=== PATIENT | male | born 1975 | race African-American/Black ===

== ENCOUNTER 2017-08-30 04:05 | Emergency (ER) | payer MEDICAID, SELFPAY ==
[2017-08-30 04:06] VITALS: BP 133/103; PULSE 80; RESP 15; TEMP 36.5; O2SAT 97; BMI 26.1
--- NOTE | 2017-08-30 04:09 | EKG12_ITS ---
Test Reason : Blood Pressure : / mmHG Vent. Rate : 079 BPM Atrial Rate : 079 BPM P-R Int : 158 ms QRS Dur : 102 ms QT Int : 406 ms P-R-T Axes : 070 -58 084 degrees QTc Int : 465 ms Sinus rhythm with frequent Premature ventricular complexes Left anterior fascicular block Anteroseptal infarct , age undetermined Abnormal ECG Confirmed by CHAR MCKEON, HAIM ([id number]), editor newspaper EDELMIRA RIVAS ([id number]) on 09/01/2017 3:33:29 PM Referred By: WAYNE Confirmed By:HAIM PARDO MD
[2017-08-30 04:34] LABS: Absolute Lymphocyte Count 2.68 X10^3/ul (0.83-4.51); Absolute Neutrophil Count 6.2 X10^3/uL (2.0-7.7); Basophil# 0.02 X10^3/uL; Basophil% 0.2 % (0-1); Hematocrit 42.6 % (40-54); Hemoglobin 15.1 g/dl (13.0-16.5); Lymphocyte # 2.68 X10^3/ul (4.0); Lymphocyte % 27.3 % (19-41); Mean Corp Hgb Conc 35.4 g/gl (32-36); Mean Corpuscular Hgb 32.3 pg (27.0-32.0); Mean Platelet Vol. 9.9 fl (6.2-12.0); Monocyte# 0.73 X10^3/uL; Monocyte% 7.4 % (0-10); Neutrophil # 6.17 X10^3/uL (2.7-7.7); Platelet Count 179 K/mm3 (150-450); RBC Distribution Width CV 12.3 % (11.6-14.6); RBC Distribution Width SD 40.4 fl (35.1-43.9); Red Blood Count 4.68 M/mm3 (4.6-6.2); White Blood Count 9.8 K/mm3 (4.4-11.0)
[2017-08-30 04:42] LABS: POSITIVE COUNT NO; POSITIVE DIFFERENTIAL NO; POSITIVE MORPHOLOGY NO
[2017-08-30 05:00] LABS: ALB/GLOB Ratio 1.1 RATIO (0.9-2.4); AST(SGOT) 30 U/L (15-37); Alanine Aminotransfer ALT/SGPT 30 U/L (16-61); Albumin, Serum 3.7 g/dL (3.2-5.0); Alkaline Phosphatase 67 U/L (45-117); Anion Gap 6 (5-15); BUN 12 mg/dL (7-18); BUN/Creat Ratio 13.6 RATIO (10-20); Calcium,Total 8.6 mg/dL (8.5-10.1); Chloride 108 mmol/L (98-107); Creatinine, Serum 0.88 mg/dL (0.70-1.30); EST Glomerular Filtration Rate 101 mL/min (>60); Est Glom Filt Rate - Afr Amer 123 mL/min (>60); Globulin 3.3 g/dL (2.2-4.2); Glucose 86 mg/dL (74-106); Potassium 3.6 mmol/L (3.5-5.1); Sodium Level 140 mmol/L (136-145)
--- NOTE | 2017-08-30 05:05 | ED.VISSUMM ---
- ER Visit Summary Date of Service: 08/30/17 Chief Complaint: I want to get the drugs out of me History of Present Illness: The patient is a 41 M presenting for evaluation secondary to drug use. Patient apparently got into a verbal dispute with his girlfriend this evening. Girlfriend states that the patient took a handful of pills in an attempt to hurt himself. Patient however states that he took the handful of pills placed them in his mouth, and immediately spit them out. States that he did not swallow them. He denies being suicidal or homicidal or hallucinating. Patient simply states that he would like to get the drugs out of his system. He states that he has been using cocaine and marijuana today. He denies that he is having any sort of chest pain. Patient does have an underlying history of coronary artery disease, stenting ?5, congestive heart failure due to ischemic cardiomyopathy and ICD placement in June. Physical Examination: Vital signs are within normal limits, patient is afebrile. General: Patient is well-nourished well-developed and in no acute distress. Head: Normocephalic, atraumatic Eyes: Pupils equal round and reactive bilaterally, extra occular motion intact bialterally ENT: Moist mucous membranes Neck: Supple, no lymphadenopathy, no JVD, no meningismus CVS: Heart regular rate and rhythm, no murmurs, rubs or gallops, radial pulses 2+ bilaterally Resp: Respirations nondistressed, lung sounds clear bilaterally, ICD is palpable in the patient's left chest Abdomen: Soft, nontender, nondistended, no palpable masses, normal bowel sounds Back: Nontender Extremities: Nontender, atraumatic, active full range of motion, no peripheral edema Skin: warm, no rashes, no petechia Neuro: Alert and oriented x 4, CN 2-12 intact, no lateralizing neurological defecits Psyc: Normal affect, no suicidal or homicidal ideation, no hallucinations, good insight and good judgment Test Results: EKG demonstrates a sinus rhythm with PVCs with a ventricular rate of 79. There is left anterior fascicular block that appears to be old, no evidence of acute ST segment changes or T-wave changes, old anteroseptal Q waves are noted unchanged from prior EKG. CBC, CMP, troponin negative. Ethanol negative. Toxicology screen was positive for cocaine and marijuana. Emergency Department Course and Treatment: Patient presented secondary to drug use. Patient was worked up given his history of ischemic cardiomyopathy. He has no evidence of elevated troponin or ischemic changes on EKG. He did have evidence of drugs in his system. He was sleeping on repeat evaluation at 550. I believe he safely can be discharged. At this time he exhibits no concern for self-harm. Patient will follow-up as needed. Disposition: Discharge Impression: 1. Polysubstance abuse This note was generated with [employer] dictation software. It may contain incorrect words, spelling, and punctuation that were not noted in review of the chart prior to signing ED Disposition - Plan for ED Patient: Disposition: Home or Assisted Living Chief Complaint: Overdose Diagnosis: Polysubstance abuse Instructions: ED Drug Abuse General Referrals: Jesus Child [Primary Care Provider] - As Needed
[2017-08-30 05:43] LABS: Amphetamine Urine VISTA NEGATIVE (<1000 ng/mL); Barbiturate Urine VISTA NEGATIVE (< 200 ng/mL); Benzodiazepine Urine VISTA NEGATIVE (< 200 ng/mL); Cocaine Urine VISTA POSITIVE (< 300 ng/mL); Ecstacy Urine VISTA NEGATIVE (< 500 ng/mL); Methadone Urine VISTA NEGATIVE (< 300 ng/mL); PCP Urine VISTA NEGATIVE (< 25 ng/mL); THC Urine VISTA POSITIVE (< 50 ng/mL); Vista UDS pH Range 5
[2017-08-30 06:14] VITALS: BP 130/103; PULSE 84; RESP 16; O2SAT 95
== END 2017-08-30 06:17 | disposition home or self-care (01) ==
PROVIDERS: Emergency Provider Emergency Medicine; Family Provider Family Medicine; PCP Family Medicine
DX: F14.10 Cocaine abuse, uncomplicated (principal); F12.10 Cannabis abuse, uncomplicated; I25.10 Atherosclerotic heart disease of native coronary artery without angina pectoris; I11.0 Hypertensive heart disease with heart failure; I50.9 Heart failure, unspecified; I25.5 Ischemic cardiomyopathy; I25.2 Old myocardial infarction; E11.9 Type 2 diabetes mellitus without complications; E78.00 Pure hypercholesterolemia, unspecified; Z95.5 Presence of coronary angioplasty implant and graft; Z95.810 Presence of automatic (implantable) cardiac defibrillator; Z79.4 Long term (current) use of insulin; Z79.82 Long term (current) use of aspirin; Z79.02 Long term (current) use of antithrombotics/antiplatelets; Z79.899 Other long term (current) drug therapy
CPT/HCPCS: 80053; 80307; 80320; 84484; 85025; 93005; 99282; G0480

== ENCOUNTER → 2017-10-13 08:43 | Outpatient (CLI) | payer MEDICAID, SELFPAY ==
[2017-10-13 10:21] LABS: Absolute Lymphocyte Count 2.22 X10^3/ul (0.83-4.51); Absolute Neutrophil Count 4.6 X10^3/uL (2.0-7.7); Basophil# 0.02 X10^3/uL; Basophil% 0.3 % (0-1); Eosinophil# 0.53 X10^3/uL; Eosinophils% 6.7 % (0-5); Hematocrit 42.8 % (40-54); Hemoglobin 15.2 g/dl (13.0-16.5); Lymphocyte # 2.22 X10^3/ul (4.0); Lymphocyte % 27.9 % (19-41); Mean Corp Hgb Conc 35.5 g/gl (32-36); Mean Corpuscular Hgb 31.3 pg (27.0-32.0); Mean Corpuscular Volume 88.1 fL (80-94); Mean Platelet Vol. 10.4 fl (6.2-12.0); Monocyte# 0.63 X10^3/uL; Monocyte% 7.9 % (0-10); Neutrophil # 4.56 X10^3/uL (2.7-7.7); Neutrophil % 57.2 % (47-70); Platelet Count 182 K/mm3 (150-450); RBC Distribution Width CV 11.5 % (11.6-14.6); RBC Distribution Width SD 36.7 fl (35.1-43.9); Red Blood Count 4.86 M/mm3 (4.6-6.2)
[2017-10-13 10:25] LABS: POSITIVE COUNT NO; POSITIVE DIFFERENTIAL NO; POSITIVE MORPHOLOGY NO
[2017-10-13 10:37] LABS: Microalbumin,Random Urine 7.3 mg/L (NO RANGE EST.); Microalbumin:Creatinine Ratio 7.6 mg/g CRE (<30 mg/g CRE)
[2017-10-13 10:42] LABS: Hemoglobin A1c 7.5 % (4.2-6.3)
[2017-10-13 10:43] LABS: ALB/GLOB Ratio 1.1 RATIO (0.9-2.4); AST(SGOT) 21 U/L (15-37); Alanine Aminotransfer ALT/SGPT 51 U/L (16-61); Albumin, Serum 3.9 g/dL (3.2-5.0); Alkaline Phosphatase 79 U/L (45-117); Anion Gap 6 (5-15); BUN 9 mg/dL (7-18); BUN/Creat Ratio 10.6 RATIO (10-20); Calcium,Total 8.6 mg/dL (8.5-10.1); Chloride 104 mmol/L (98-107); Cholesterol 90 mg/dL (200); Creatinine, Serum 0.85 mg/dL (0.70-1.30); EST Glomerular Filtration Rate 107 mL/min (>60); Est Glom Filt Rate - Afr Amer 129 mL/min (>60); Globulin 3.7 g/dL (2.2-4.2); Glucose 115 mg/dL (74-106); High Density Lipoprotein 51 mg/dL; Potassium 3.9 mmol/L (3.5-5.1); Protein, Total 7.6 g/dL (6.4-8.2); Sodium Level 140 mmol/L (136-145); Triglycerides 58 mg/dL; Very Low Density Lipoprotein 12 mg/dL (5-40)
== END ==
PROVIDERS: Family Provider Family Medicine; PCP Family Medicine; Visit Provider Family Medicine
DX: E11.49 Type 2 diabetes mellitus with other diabetic neurological complication (principal)
CPT/HCPCS: 36415; 80053; 80061; 82043; 82570; 83036; 85025

== ENCOUNTER 2017-10-24 08:39 | Emergency (ER) | payer MEDICAID, SELFPAY ==
[2017-10-24 08:40] VITALS: BP 122/74; PULSE 80; RESP 18; TEMP 36.6; O2SAT 100; BMI 25.7
--- NOTE | 2017-10-24 09:05 | ED.VISSUMM ---
- ER Visit Summary Date of Service: 10/24/17 Chief Complaint: Dental pain History of Present Illness: The patient is a 42 M presenting with dental pain. He states his filling fell out of this tooth. He started having increasing pain last night. He has been taking Tylenol and Vicodin at home. He has now run out of the Vicodin. He had an antibiotic over a month ago for this. He then went to long-term and was unable to follow-up with the dentist. Denies fever swelling or other complaints. Physical Examination: Vitals are stable. Patient is afebrile. Alert no acute distress. HEENT exam right lower molar decay, no surrounding fluctuance. No sublingual edema Neck is supple. Lungs are clear and equal bilaterally. Heart is regular rate and rhythm. Abdomen is soft nontender nondistended. Extremities are unremarkable. Skin is warm and dry. Remainder of exam is unremarkable. Emergency Department Course and Treatment: Patient is given Kyle x1, penicillin. He is advised to follow-up with dentist. He is given a dental referral list. Advised return to ED for any worsening complaints. Disposition: Discharge home Impression: Odontalgia This note was generated with [employer] dictation software. It may contain incorrect words, spelling, and punctuation that were not noted in review of the chart prior to signing ED Disposition - Plan for ED Patient: Chief Complaint: Dental Referrals: Jesus Child [Primary Care Provider] -
--- NOTE | 2017-10-24 09:08 | ED.DCSUM_ITS ---
- ER Visit Summary Date of Service: 10/24/17 Chief Complaint: Dental pain History of Present Illness: The patient is a 42 M presenting with dental pain. He states his filling fell out of this tooth. He started having increasing pain last night. He has been taking Tylenol and Vicodin at home. He has now run out of the Vicodin. He had an antibiotic over a month ago for this. He then went to group home and was unable to follow-up with the dentist. Denies fever swelling or other complaints. Physical Examination: Vitals are stable. Patient is afebrile. Alert no acute distress. HEENT exam right lower molar decay, no surrounding fluctuance. No sublingual edema Neck is supple. Lungs are clear and equal bilaterally. Heart is regular rate and rhythm. Abdomen is soft nontender nondistended. Extremities are unremarkable. Skin is warm and dry. Remainder of exam is unremarkable. Emergency Department Course and Treatment: Patient is given [place] x1, penicillin. He is advised to follow-up with dentist. He is given a dental referral list. Advised return to ED for any worsening complaints. Disposition: Discharge home Impression: Odontalgia This note was generated with [employer] dictation software. It may contain incorrect words, spelling, and punctuation that were not noted in review of the chart prior to signing ED Disposition - Plan for ED Patient: Chief Complaint: Dental Referrals: Jesus Child [Primary Care Provider] -
--- NOTE | 2017-10-24 09:08 | ED.DEP ---
ED Disposition - Plan for ED Patient: Chief Complaint: Dental Instructions: ED Tooth Pain Prescriptions: Hydrocodone Bitart/Apap 5-325 [[place] 5MG-325MG] 1 tablet PO Q6H PRN PRN 2 Days #6 tablet PRN Reason: Pain Penicillin V Potassium 500 mg PO 4X/DAY #40 tablet Referrals: Jesus Child [Primary Care Provider] -
--- NOTE | 2017-10-24 09:09 | DCINST.ED_ITS ---
ED Disposition - Plan for ED Patient: Chief Complaint: Dental Instructions: ED Tooth Pain Prescriptions: Hydrocodone Bitart/Apap 5-325 [[place] 5MG-325MG] 1 tablet PO Q6H PRN PRN 2 Days # 6 tablet PRN Reason: Pain Penicillin V Potassium 500 mg PO 4X/DAY #40 tablet Referrals: Jesus Child [Primary Care Provider] -
[2017-10-24] MEDS: HYDROcodone Bitartrate/Apap 5/325 Tablet PO (09:23)
[2017-10-24] MEDS: Penicillin Vk 250 MG Tablet 500 MG PO (09:23)
== END 2017-10-24 09:27 | disposition home or self-care (01) ==
PROVIDERS: Emergency Provider Emergency Medicine; Family Provider Family Medicine; PCP Family Medicine
DX: K08.89 Other specified disorders of teeth and supporting structures (principal); I25.10 Atherosclerotic heart disease of native coronary artery without angina pectoris; Z79.82 Long term (current) use of aspirin; Z79.01 Long term (current) use of anticoagulants; Z79.899 Other long term (current) drug therapy; Z72.0 Tobacco use
CPT/HCPCS: 99282

== ENCOUNTER 2018-03-27 05:55 | Inpatient (IN) | payer MEDICAID, SELFPAY ==
[2018-03-27] VITALS (19 sets, daily range): BP systolic 123–157; BP diastolic 84–113; PULSE 96–115; RESP 15–31; TEMP 36.2–37.1; O2SAT 94–100; BMI 27.7; BMI 26.8
--- NOTE | 2018-03-27 06:13 | ED.RN ---
CALLED FOR EKF PER DR REQUEST, PULLED OLD EKGS FOR
--- NOTE | 2018-03-27 06:21 | EKG12_ITS ---
Test Reason : SOB Blood Pressure : / mmHG Vent. Rate : 109 BPM Atrial Rate : 109 BPM P-R Int : 152 ms QRS Dur : 088 ms QT Int : 354 ms P-R-T Axes : 054 -45 104 degrees QTc Int : 476 ms Sinus tachycardia with occasional Premature ventricular complexes Possible Left atrial enlargement Left anterior fascicular block Anteroseptal infarct (cited on or before 05-DEC-2014) Abnormal ECG Confirmed by CHAR MCKEON, HAIM ([id number]), offline editor KEESHA DURÁN ([id number]) on 03/30/2018 2:22:42 PM Referred By: CHANDAN Confirmed By:HAIM PARDO MD
--- NOTE | 2018-03-27 06:21 | RAD_ITS ---
STUDY: X-RAY CHEST REASON FOR EXAM: Male, 42 years old. Shortness of breath, wheezing, history of asthma TECHNIQUE: Single AP portable view of the chest. COMPARISON: 08/07/2016. 03/24/2015. FINDINGS: Left lateral chest wall pacer-like device over the right cardiac contour. There are superimposed monitor leads. There is mild bronchovascular prominence increased since previous examination. Blunting of the bilateral costophrenic angles. Borderline cardiac size, not significantly changed since 2016, increased since 2014. Normal mediastinum and kelly. Normal visualized pulmonary arteries. Normal visualized aortic arch and descending thoracic aorta. Normal visualized thoracic spine. Normal visualized ribs, clavicles, and shoulders. There is no demonstrated abnormality of the visualized soft tissue structures of the upper abdomen. RAD/Chest 1 View (Portable) IMPRESSION: There is borderline cardiac size and mild congestive heart failure. Electronically Signed: Selam Diaz MD at 7:13 EST , Service support ,
[2018-03-27] MEDS: Ipratropium/Albuterol Sulfate 3 ML AMPUL.NEB INHALATION ×3 (06:24→19:01)
[2018-03-27] MEDS: Aspirin 81 MG TAB.CHEW 324 MG PO (06:37)
[2018-03-27 06:57] LABS: International Normalized Ratio 0.9; Prothrombin Time (Protime)PT. 12.5 SECONDS (11.7-14.9)
[2018-03-27] MEDS: Albuterol 2.5 MG/3 ML VIAL.NEB. INHALATION ×5 (06:59→23:01)
[2018-03-27 07:00] LABS: Anion Gap 11 (5-15); BUN 12 mg/dL (7-18); Calcium,Total 8.5 mg/dL (8.5-10.1); Chloride 107 mmol/L (98-107); EST Glomerular Filtration Rate 88 mL/min (>60); Est Glom Filt Rate - Afr Amer 106 mL/min (>60); Estimated Creatinine Clearance 107.78 ml/min; Glucose 175 mg/dL (74-106); Potassium 3.8 mmol/L (3.5-5.1); Sodium Level 143 mmol/L (136-145)
[2018-03-27 07:04] LABS: Absolute Neutrophil Count 6.2 X10^3/uL (2.0-7.7); Basophil# 0.01 X10^3/uL; Basophil% 0.1 % (0-1); Eosinophil# 0.39 X10^3/uL; Eosinophils% 4.3 % (0-5); Hematocrit 44.3 % (40-54); Hemoglobin 14.9 g/dl (13.0-16.5); Lymphocyte % 21.1 % (19-41); Mean Corp Hgb Conc 33.6 g/gl (32-36); Mean Corpuscular Hgb 30.2 pg (27.0-32.0); Mean Corpuscular Volume 89.9 fL (80-94); Mean Platelet Vol. 10.5 fl (6.2-12.0); Monocyte# 0.52 X10^3/uL; Monocyte% 5.8 % (0-10); Neutrophil # 6.19 X10^3/uL (2.7-7.7); Neutrophil % 68.6 % (47-70); Platelet Count 219 K/mm3 (150-450); RBC Distribution Width CV 13.2 % (11.6-14.6); Red Blood Count 4.93 M/mm3 (4.6-6.2)
[2018-03-27 07:12] LABS: POSITIVE COUNT NO; POSITIVE DIFFERENTIAL NO; POSITIVE MORPHOLOGY NO
--- NOTE | 2018-03-27 07:26 | ED.DEP ---
ED Disposition - Plan for ED Patient: Chief Complaint: Shortness of Breath Instructions: ED CHF General Referrals: Jesus Child [Primary Care Provider] -
--- NOTE | 2018-03-27 07:30 | ED.RN ---
[place] form signed and discussed with dr. webb. iv discharged.
--- NOTE | 2018-03-27 07:31 | ED.DCSUM_ITS ---
- ER Visit Summary Date of Service: 03/27/18 Chief Complaint: Shortness of breath History of Present Illness: The patient is a 42 M who presents with shortness of breath. He states that he began to feel short of breath last night. This became severe. He does report congestion rhinorrhea and cough. This is been going on for the past 2 days. He states that he just needs some breathing treatments. He denies any chest pain fever nausea vomiting. He does have a history of cardiomyopathy with an EF of 20% CHF and COPD. He has a history of multiple MIs with cardiac cath and stents. Physical Examination: Heart rate 107 respiratory rate 22 pulse ox 100% on room air blood pressure 157/113 patient is markedly diaphoretic Moist mucous membranes Heart regular rhythm tachycardia Tachypnea with bilateral rales and wheezing Abdomen soft nontender nondistended 1+ symmetric pitting lower extremity edema Alert Test Results: EKG shows sinus rhythm at a rate of 109 with a PVC. Chest x-ray shows borderline cardiac size and mild CHF. Labs notable for troponin of 0.023 which is within normal range INR 0.9. Emergency Department Course and Treatment: I explained to the patient that given his market diaphoresis and medical history I am very concerned that this may be cardiac in origin rather than pulmonary. His EKG was obtained which did not show acute ischemia. He was given a DuoNeb with improvement of symptoms and another albuterol with further improvement. However his chest x-ray does show evidence of CHF. I am concerned with his history that this may very well be cardiac in origin and recommended further evaluation. Patient states that he would be willing to stay but needs to take his niece to school. He states he will take his niece to school and then return for hospitalization. I explained that feel there are significant risks with even being out of the hospital for this amount of time including worsening of condition, acute congestive heart failure, myocardial infarction, . He vocalized understanding. He elected to leave AGAINST MEDICAL ADVICE and states that he does intend to return. Treatment Plan: [] Disposition: Left AGAINST MEDICAL ADVICE Impression: CHF This note was generated with [employer] software. It may contain incorrect words, spelling, and punctuation that were not noted in review of the chart prior to signing ED Disposition - Plan for ED Patient: Chief Complaint: Shortness of Breath Instructions: ED CHF General Referrals: Jesus Child [Primary Care Provider] -
--- NOTE | 2018-03-27 07:38 | ED.RN ---
PT LT AMA AND IMMEDIATELY RETURNED.
[2018-03-27 08:35] LABS: BNP,B-Type NATRIURETIC PEPTIDE 362.7 pg/mL (0-100)
[2018-03-27] MEDS: Furosemide 40 MG/4 ML Vial IV ×3 (10:49→23:15)
[2018-03-27] MEDS: Losartan Potassium 100 MG Tablet PO (10:50)
[2018-03-27] MEDS: Spironolactone 25 MG Tablet PO (10:50)
[2018-03-27] MEDS: Clopidogrel Bisulfate 75 MG Tablet PO (10:50)
[2018-03-27] MEDS: Sertraline 50 MG Tablet PO (10:50)
[2018-03-27] MEDS: Carvedilol 6.25 MG Tablet PO ×2 (10:50→22:16)
[2018-03-27] MEDS: Insulin Lispro 100 UNIT/ML INSULN.PEN SC ×3 (10:57→22:21)
[2018-03-27 11:11] LABS: Bedside Glucose 242 mg/dL (70-110)
--- NOTE | 2018-03-27 12:06 | NURSING ---
With the patients permission, Aga Trujillo and Kirstin attempted to insert [address] Laws informed. Orders received.
[2018-03-27] MEDS: Heparin Injection (Vial) 5,000 UNIT/ML VIAL 5000 UNIT SC ×2 (14:04→22:17)
--- NOTE | 2018-03-27 14:43 | PCM.HP.STD ---
Problem List (1) Severe left ventricular systolic dysfunction Status: Chronic (2) Polysubstance abuse Status: Chronic Comment: marijuana, cocaine (3) Presence of automatic implantable cardioverter-defibrillator Status: Chronic Comment: SICD per Dr Berry @ [facility] (4) Nicotine dependence Status: Chronic (5) Old myocardial infarction Status: Chronic (6) Hypertension Status: Chronic (7) History of coronary artery stent placement Status: Chronic Comment: PCI-MEHRDAD-LAD 08/2014, BMA-ADU-Ybbx-Mid CX and Prox-Mid RCA 03/18/15, Thrombosis of CX stent 03/25/15 (8) Atherosclerosis of coronary artery of [place] heart without angina pectoris Status: Chronic Comment: PCI-MEHRDAD-LAD 08/2014, GOI-EXN-Vylb-Mid CX and Prox-Mid RCA 03/18/15, Thrombosis of CX stent 03/25/15 (9) Ischemic cardiomyopathy Status: Chronic Comment: EF 20% per echo 08/08/2016 (10) Hyperlipidemia Status: Chronic (11) Type 2 diabetes mellitus Status: Chronic (12) Chronic systolic CHF (congestive heart failure) Status: Chronic History of Present Illness Date of Admission: 03/27/18 Chief Complaint: Shortness of breath. The patient is a 42 year old M who presents to the Emergency Department due to shortness of breath. Patient initially signed out AMA and then returned for treatment. Patient states he has had increased shortness of breath for the past week. Denies cough, fever, chills. Denies lower extremity swelling. Denies chest pain, dizziness, lightheadedness. Patient reports shortness of breath is worse with exertion and also lying flat. His past medical history includes chronic systolic CHF/ischemic cardiomyopathy, hypertension, hyperlipidemia, type 2 diabetes mellitus, CAD status post PCI, tobacco dependence, history of polysubstance abuse, depression. Past Medical History Past Medical History (Chronic Problems): Chronic Problems (Last Reviewed 03/12/18 @ 10:47 by Savanna Dave) Severe left ventricular systolic dysfunction (Chronic) Polysubstance abuse (Chronic) marijuana, cocaine 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/28/17) SICD per Dr Berry @ [facility] Nicotine dependence (Chronic) Old myocardial infarction (Chronic) Hypertension (Chronic) History of coronary artery stent placement (Chronic) PCI-MEHRDAD-LAD 08/2014, MSG-ABJ-Lkmm-Mid CX and Prox-Mid RCA 03/18/15, Thrombosis of CX stent 03/25/15 Atherosclerosis of coronary artery of [place] heart without angina pectoris (Chronic) PCI-MEHRDAD-LAD 08/2014, NKZ-ATD-Kinl-Mid CX and Prox-Mid RCA 03/18/15, Thrombosis of CX stent 03/25/15 Ischemic cardiomyopathy (Chronic) EF 20% per echo 08/08/2016 Hyperlipidemia (Chronic) Type 2 diabetes mellitus (Chronic) Chronic systolic CHF (congestive heart failure) (Chronic) Medical History: Medical History (Last Reviewed 03/12/18 @ 10:47 by Savanna Dave) Severe left ventricular systolic dysfunction (Chronic) I51.9 Polysubstance abuse (Chronic) F19.10 marijuana, cocaine Nicotine dependence (Chronic) F17.200 Old myocardial infarction (Chronic) I25.2 Hypertension (Chronic) I10 Atherosclerosis of coronary artery of [place] heart without angina pectoris (Chronic) I25.10 PCI-MEHRDAD-LAD 08/2014, ORA-IUB-Xstw-Mid CX and Prox-Mid RCA 03/18/15, Thrombosis of CX stent 03/25/15 Ischemic cardiomyopathy (Chronic) I25.5 EF 20% per echo 08/08/2016 Hyperlipidemia (Chronic) E78.5 Type 2 diabetes mellitus (Chronic) E11.9 Chronic systolic CHF (congestive heart failure) (Chronic) I50.22 Depression F32.9 Peripheral neuropathy G62.9 Allergies No Known Allergies Allergy (Verified 03/09/18 08:42) Home Medications: Ambulatory Orders Medication Instructions Recorded Aspirin E.C. [Ecotrin] 81 mg PO DAILY@0800 12/05/14 Clopidogrel Bisulfate [Plavix] 75 mg PO DAILY #0 03/26/15 Atorvastatin Calcium [Lipitor] 40 mg PO DAILY 08/07/16 Losartan Potassium [Cozaar] 25 mg PO DAILY #30 tab 08/08/16 Magnesium Oxide [Mag-Ox 400] 400 mg PO DAILYCM #30 tab 08/08/16 Spironolactone [Aldactone] 25 mg PO DAILY #30 tab 08/08/16 Insulin Glargine,Hum.rec.anlog 14 unit SQ DAILY 04/09/17 [Basaglar Kwikpen U-100] Sertraline HCl [Zoloft] 1 tab PO DAILY 04/09/17 alprazolam 1 mg tablet 1 mg PO PRN PRN 30 Days #60 07/12/17 carvedilol 6.25 mg tablet 3.125 mg PO BID 30 Days #30 tab 07/12/17 furosemide 40 mg tablet 40 mg PO BID tab 07/12/17 hydrocodone 10 mg-acetaminophen 1 tab PO PRN PRN 30 Days #120 07/12/17 325 mg tablet sennosides 8.6 mg tablet 8.6 mg PO BID PRN 08/11/17 Hydrocodone Bitart/Apap 5-325 1 tab PO Q6H PRN PRN 2 Days #6 tab 10/24/17 [[place] 5MG-325MG] Potassium Chloride [K-Dur] 20 meq PO DAILY 03/27/18 Surgical History: Surgical History (Last Reviewed 03/12/18 @ 10:47 by Savanna Dave) 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) Onset Date: 06/28/[address] Berry @ [facility] History of coronary artery stent placement (Chronic) Z95.5 PCI-MEHRDAD-LAD 08/2014, OWZ-JOE-Tboz-Mid CX and Prox-Mid RCA 03/18/15, Thrombosis of CX stent 03/25/15 History of appendectomy Z90.49 Surgical History: - - Cardiac stent August 2014 Psychiatric History: Depression Smoking Status: Current every day smoker Tobacco Use: Cigarettes Alcohol: None Drugs: - - Denies - *Family History Paternal Family History: Family History (Last Reviewed 03/27/18 @ 14:53 by GERMAINE Ramirez) Mother CAD (coronary artery disease) Diabetes Hypertension Myocardial infarction Father CAD (coronary artery disease) Diabetes Hypertension Myocardial infarction Brother Hypertension History Items: - - Denies paternal cardiac history Maternal Family History: Family History (Last Reviewed 03/27/18 @ 14:53 by GERMAINE Ramirez) Mother CAD (coronary artery disease) Diabetes Hypertension Myocardial infarction Father CAD (coronary artery disease) Diabetes Hypertension Myocardial infarction Brother Hypertension History Items: Heart Disease Review of Systems Constitutional: Denies: Chills, Fever, Weight Change HEENT: Denies: Head Aches, Sinus Congestion, Sinus Drainage Cardiovascular: Denies: Chest Pain, Edema, Light Headedness, Palpitations, Syncope Respiratory: Reports: Shortness of Breath, Wheezing. Denies: Cough, Sputum production Gastrointestinal: Denies: Abdominal Pain, Nausea, Vomiting Genitourinary: Denies: Dysuria Musculoskeletal: Denies: Joint Pain, Joint Tenderness Skin: Denies: Rash, Wounds Neurological: Denies: Numbness, Tingling, Focal weakness Psychiatric: Reports: Depression Hematologic/ Lymphatic: Denies: Easy Bruising, Easy Bleeding VTE Information - Inpt Only VTE Present on Admission: No VTE Mechan Device Prophylaxis: None VTE Pharm Prophylaxis ordered?: Yes - Physical Exam General: Alert, Oriented x3, Cooperative HEENT: Atraumatic, PERRLA, EOMI, Normocephalic Oral: Moist Mucosa Neck: Supple, No JVD, Negative Carotid Bruits Lungs: Diminished, Wheezes Cardiovascular: Regular rate, Regular Rhythm, Normal S1, Normal S2, No murmurs Abdomen: Bowel Sounds Present, Soft, Non Tender, Non-Distended Extremities: No clubbing, No cyanosis, No edema, Capillary Refill Less than 3 Seconds Skin: No rashes, No breakdown Musculoskeletal: No Tenderness to Palpation of Joints or Extremities Neurological: Cranial nerves II-XII grossly intact, Neuro grossly intact Psych/Mental Status: Normal Affect, Appropriate Vital Signs Temp Pulse Resp BP Pulse Ox 97.2 F L 106 H 20 H 137/101 H 100 03/27/18 14:01 03/27/18 14:01 03/27/18 14:01 03/27/18 14:01 03/27/18 14:01 Oxygen Flow Rate (L/min) 2 Oxygen Delivery Method Nasal Cannula Weight: 197 lb 12.074 oz Body Mass Index (BMI) 26.8 Finger Stick Blood Glucose 119 Intake and Output for Last 24 Hours 03/25/18 03/26/18 03/27/18 23:59 23:59 23:59 Intake Total 240 / 240 Output Total 1400 / 1400 Balance -1160 / -1160 Laboratory Tests Past 24 Hrs 03/27/18 03/27/18 03/27/18 06:28 06:28 06:28 WBC 9.0 RBC 4.93 Hgb 14.9 Hct 44.3 MCV 89.9 MCH 30.2 MCHC 33.6 RDW 13.2 RDW Differential 43.0 Plt Count 219 MPV 10.5 Immature Gran % (Auto) 0.100 Neut % (Auto) 68.6 Lymph % (Auto) 21.1 [place] % (Auto) 5.8 Eos % (Auto) 4.3 Baso % (Auto) 0.1 Absolute Neuts (auto) 6.2 Absolute Lymphs (auto) 1.90 Total Counted Not Reportable PT 12.5 INR 0.9 Sodium 143 Potassium 3.8 Chloride 107 Carbon Dioxide 25.0 Anion Gap 11 BUN 12 Creatinine 1.00 Estim Creat Clear Calc 107.78 Est GFR (MDRD) Af Amer 106 Est GFR (MDRD) Non-Af 88 BUN/Creatinine Ratio 12.0 Glucose 175 H Calcium 8.5 Troponin I 0.023 B-Natriuretic Peptide 03/27/18 06:28 WBC RBC Hgb Hct MCV MCH MCHC RDW RDW Differential Plt Count MPV Immature Gran % (Auto) Neut % (Auto) Lymph % (Auto) [place] % (Auto) Eos % (Auto) Baso % (Auto) Absolute Neuts (auto) Absolute Lymphs (auto) Total Counted PT INR Sodium Potassium Chloride Carbon Dioxide Anion Gap BUN Creatinine Estim Creat Clear Calc Est GFR (MDRD) Af Amer Est GFR (MDRD) Non-Af BUN/Creatinine Ratio Glucose Calcium Troponin I B-Natriuretic Peptide 362.7 H POC Glucose 03/27/18 10:56 POC Glucose 242 H Assessment/Plan All Active Problems (Last Reviewed 03/12/18 @ 10:47 by Savanna Dave) Acute on chronic systolic CHF (congestive heart failure) (Resolved) Hypomagnesemia (Resolved) 1. Acute hypoxic respiratory insufficiency secondary to acute on chronic systolic CHF-Continue supplement oxygen to maintain O2 sat above 90%. 2. Acute on chronic systolic CHF/ischemic cardiomyopathy/s/p AICD-chest x-ray admission with mild CHF. BNP 362. Strict I&O. Daily weight. Lasix 40 mg IV every 8. Continue losartan, Aldactone. Follows with Dr. Ramirez. Echocardiogram July 2016 with EF 20%. Repeat echocardiogram. Repeat chest x-ray in a.m. 3. CAD status post stents x5-patient denies chest pain. Continue aspirin, statin, Plavix, carvedilol. 4. Hypertension-stable, continue home carvedilol, losartan regimen. 5. Hyperlipidemia-continue statin. 6. Type 2 diabetes [id number] before meals at bedtime with sliding scale insulin. 7. Tobacco dependence-encouraged tobacco cessation. 8. History of polysubstance abuse-prior tox screen August 2017 with positive cannabinoids and cocaine. 9. Depression-continue home sertraline regimen. DVT prophylaxis-heparin subcu. This patient was seen by GERMAINE Ramirez under the supervision of Dr. Bobo.
--- NOTE | 2018-03-27 14:52 | HP.PCM_ITS ---
Problem List (1) Severe left ventricular systolic dysfunction Status: Chronic (2) Polysubstance abuse Status: Chronic Comment: marijuana, cocaine (3) Presence of automatic implantable cardioverter-defibrillator Status: Chronic Comment: SICD per Dr Berry @ [facility] (4) Nicotine dependence Status: Chronic (5) Old myocardial infarction Status: Chronic (6) Hypertension Status: Chronic (7) History of coronary artery stent placement Status: Chronic Comment: PCI-MEHRDAD-LAD 08/2014, UZX-LHL-Vurx-Mid CX and Prox- Mid RCA 03/18/15, Thrombosis of CX stent 03/25/15 (8) Atherosclerosis of coronary artery of [place] heart without angina pectoris Status: Chronic Comment: PCI-MEHRDAD-LAD 08/2014, KIU-AYH-Nglt-Mid CX and Prox- Mid RCA 03/18/15, Thrombosis of CX stent 03/25/15 (9) Ischemic cardiomyopathy Status: Chronic Comment: EF 20% per echo 08/08/2016 (10) Hyperlipidemia Status: Chronic (11) Type 2 diabetes mellitus Status: Chronic (12) Chronic systolic CHF (congestive heart failure) Status: Chronic History of Present Illness Date of Admission: 03/27/18 Chief Complaint: Shortness of breath. The patient is a 42 year old M who presents to the Emergency Department due to shortness of breath. Patient initially signed out AMA and then returned for treatment. Patient states he has had increased shortness of breath for the past week. Denies cough, fever, chills. Denies lower extremity swelling. Denies chest pain, dizziness, lightheadedness. Patient reports shortness of breath is worse with exertion and also lying flat. His past medical history includes chronic systolic CHF/ischemic cardiomyopathy, hypertension, hyperlipidemia, type 2 diabetes mellitus, CAD status post PCI, tobacco dependence, history of polysubstance abuse, depression. Past Medical History Past Medical History (Chronic Problems): Chronic Problems (Last Reviewed 03/12/18 @ 10:47 by Savanna Dave) Severe left ventricular systolic dysfunction (Chronic) Polysubstance abuse (Chronic) marijuana, cocaine 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/28/17) SICD per Dr Berry @ [facility] Nicotine dependence (Chronic) Old myocardial infarction (Chronic) Hypertension (Chronic) History of coronary artery stent placement (Chronic) PCI-MEHRDAD-LAD 08/2014, RPD-QFI-Utrh-Mid CX and Prox-Mid RCA 03/18/15, Thrombosis of CX stent 03/25/15 Atherosclerosis of coronary artery of [place] heart without angina pectoris (Chronic) PCI-MEHRDAD-LAD 08/2014, CAL-SJH-Jycu-Mid CX and Prox-Mid RCA 03/18/15, Thrombosis of CX stent 03/25/15 Ischemic cardiomyopathy (Chronic) EF 20% per echo 08/08/2016 Hyperlipidemia (Chronic) Type 2 diabetes mellitus (Chronic) Chronic systolic CHF (congestive heart failure) (Chronic) Medical History: Medical History (Last Reviewed 03/12/18 @ 10:47 by Savanna Dave) Severe left ventricular systolic dysfunction (Chronic) I51.9 Polysubstance abuse (Chronic) F19.10 marijuana, cocaine Nicotine dependence (Chronic) F17.200 Old myocardial infarction (Chronic) I25.2 Hypertension (Chronic) I10 Atherosclerosis of coronary artery of [place] heart without angina pectoris (Chronic) I25.10 PCI-MEHRDAD-LAD 08/2014, ZAH-KHA-Myyx-Mid CX and Prox-Mid RCA 03/18/15, T hrombosis of CX stent 03/25/15 Ischemic cardiomyopathy (Chronic) I25.5 EF 20% per echo 08/08/2016 Hyperlipidemia (Chronic) E78.5 Type 2 diabetes mellitus (Chronic) E11.9 Chronic systolic CHF (congestive heart failure) (Chronic) I50.22 Depression F32.9 Peripheral neuropathy G62.9 Allergies No Known Allergies Allergy (Verified 03/09/18 08:42) Home Medications: Ambulatory Orders Medication Instructions Recorded Aspirin E.C. [Ecotrin] 81 mg PO DAILY@0800 12/05/14 Clopidogrel Bisulfate [Plavix] 75 mg PO DAILY #0 03/26/15 Atorvastatin Calcium [Lipitor] 40 mg PO DAILY 08/07/16 Losartan Potassium [Cozaar] 25 mg PO DAILY #30 tab 08/08/16 Magnesium Oxide [Mag-Ox 400] 400 mg PO DAILYCM #30 tab 08/08/16 Spironolactone [Aldactone] 25 mg PO DAILY #30 tab 08/08/16 Insulin Glargine,Hum.rec.anlog 14 unit SQ DAILY 04/09/17 [Basaglar Kwikpen U-100] Sertraline HCl [Zoloft] 1 tab PO DAILY 04/09/17 alprazolam 1 mg tablet 1 mg PO PRN PRN 30 Days #60 07/12/17 carvedilol 6.25 mg tablet 3.125 mg PO BID 30 Days #30 tab 07/12/17 furosemide 40 mg tablet 40 mg PO BID tab 07/12/17 hydrocodone 10 mg-acetaminophen 1 tab PO PRN PRN 30 Days #120 07/12/17 325 mg tablet sennosides 8.6 mg tablet 8.6 mg PO BID PRN 08/11/17 Hydrocodone Bitart/Apap 5-325 1 tab PO Q6H PRN PRN 2 Days #6 tab 10/24/17 [[place] 5MG-325MG] Potassium Chloride [K-Dur] 20 meq PO DAILY 03/27/18 Surgical History: Surgical History (Last Reviewed 03/12/18 @ 10:47 by Savanna Dave) 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) Onset Date: 06/28/[address] Berry @ [facility] History of coronary artery stent placement (Chronic) Z95.5 PCI-MEHRDAD-LAD 08/2014, DGP-HLH-Xxob-Mid CX and Prox-Mid RCA 03/18/15, Thrombosis of CX stent 03/25/15 History of appendectomy Z90.49 Surgical History: - - Cardiac stent August 2014 Psychiatric History: Depression Smoking Status: Current every day smoker Tobacco Use: Cigarettes Alcohol: None Drugs: - - Denies - *Family History Paternal Family History: Family History (Last Reviewed 03/27/18 @ 14:53 by GERMAINE Ramirez) Mother CAD (coronary artery disease) Diabetes Hypertension Myocardial infarction Father CAD (coronary artery disease) Diabetes Hypertension Myocardial infarction Brother Hypertension History Items: - - Denies paternal cardiac history Maternal Family History: Family History (Last Reviewed 03/27/18 @ 14:53 by GERMAINE Ramirez) Mother CAD (coronary artery disease) Diabetes Hypertension Myocardial infarction Father CAD (coronary artery disease) Diabetes Hypertension Myocardial infarction Brother Hypertension History Items: Heart Disease Review of Systems Constitutional: Denies: Chills, Fever, Weight Change HEENT: Denies: Head Aches, Sinus Congestion, Sinus Drainage Cardiovascular: Denies: Chest Pain, Edema, Light Headedness, Palpitations, Syncope Respiratory: Reports: Shortness of Breath, Wheezing. Denies: Cough, Sputum production Gastrointestinal: Denies: Abdominal Pain, Nausea, Vomiting Genitourinary: Denies: Dysuria Musculoskeletal: Denies: Joint Pain, Joint Tenderness Skin: Denies: Rash, Wounds Neurological: Denies: Numbness, Tingling, Focal weakness Psychiatric: Reports: Depression Hematologic/ Lymphatic: Denies: Easy Bruising, Easy Bleeding VTE Information - Inpt Only VTE Present on Admission: No VTE Mechan Device Prophylaxis: None VTE Pharm Prophylaxis ordered?: Yes - Physical Exam General: Alert, Oriented x3, Cooperative HEENT: Atraumatic, PERRLA, EOMI, Normocephalic Oral: Moist Mucosa Neck: Supple, No JVD, Negative Carotid Bruits Lungs: Diminished, Wheezes Cardiovascular: Regular rate, Regular Rhythm, Normal S1, Normal S2, No murmurs Abdomen: Bowel Sounds Present, Soft, Non Tender, Non-Distended Extremities: No clubbing, No cyanosis, No edema, Capillary Refill Less than 3 Seconds Skin: No rashes, No breakdown Musculoskeletal: No Tenderness to Palpation of Joints or Extremities Neurological: Cranial nerves II-XII grossly intact, Neuro grossly intact Psych/Mental Status: Normal Affect, Appropriate Vital Signs Temp Pulse Resp BP Pulse Ox 97.2 F L 106 H 20 H 137/101 H 100 03/27/18 14:01 03/27/18 14:01 03/27/18 14:01 03/27/18 14:01 03/27/18 14:01 Oxygen Flow Rate (L/min) 2 Oxygen Delivery Method Nasal Cannula Weight: 197 lb 12.074 oz Body Mass Index (BMI) 26.8 Finger Stick Blood Glucose 119 Intake and Output for Last 24 Hours 03/25/18 03/26/18 03/27/18 23:59 23:59 23:59 Intake Total 240 / 240 Output Total 1400 / 1400 Balance -1160 / -1160 Laboratory Tests Past 24 Hrs 03/27/18 03/27/18 03/27/18 06:28 06:28 06:28 WBC 9.0 RBC 4.93 Hgb 14.9 Hct 44.3 MCV 89.9 MCH 30.2 MCHC 33.6 RDW 13.2 RDW Differential 43.0 Plt Count 219 MPV 10.5 Immature Gran % (Auto) 0.100 Neut % (Auto) 68.6 Lymph % (Auto) 21.1 [place] % (Auto) 5.8 Eos % (Auto) 4.3 Baso % (Auto) 0.1 Absolute Neuts (auto) 6.2 Absolute Lymphs (auto) 1.90 Total Counted Not Reportable PT 12.5 INR 0.9 Sodium 143 Potassium 3.8 Chloride 107 Carbon Dioxide 25.0 Anion Gap 11 BUN 12 Creatinine 1.00 Estim Creat Clear Calc 107.78 Est GFR (MDRD) Af Amer 106 Est GFR (MDRD) Non-Af 88 BUN/Creatinine Ratio 12.0 Glucose 175 H Calcium 8.5 Troponin I 0.023 B-Natriuretic Peptide 03/27/18 06:28 WBC RBC Hgb Hct MCV MCH MCHC RDW RDW Differential Plt Count MPV Immature Gran % (Auto) Neut % (Auto) Lymph % (Auto) [place] % (Auto) Eos % (Auto) Baso % (Auto) Absolute Neuts (auto) Absolute Lymphs (auto) Total Counted PT INR Sodium Potassium Chloride Carbon Dioxide Anion Gap BUN Creatinine Estim Creat Clear Calc Est GFR (MDRD) Af Amer Est GFR (MDRD) Non-Af BUN/Creatinine Ratio Glucose Calcium Troponin I B-Natriuretic Peptide 362.7 H POC Glucose 03/27/18 10:56 POC Glucose 242 H Assessment/Plan All Active Problems (Last Reviewed 03/12/18 @ 10:47 by Savanna Dave) Acute on chronic systolic CHF (congestive heart failure) (Resolved) Hypomagnesemia (Resolved) 1. Acute hypoxic respiratory insufficiency secondary to acute on chronic systolic CHF-Continue supplement oxygen to maintain O2 sat above 90%. 2. Acute on chronic systolic CHF/ischemic cardiomyopathy/s/p AICD-chest x-ray admission with mild CHF. BNP 362. Strict I&O. Daily weight. Lasix 40 mg IV every 8. Continue losartan, Aldactone. Follows with Dr. Ramirez. Echocardiogram July 2016 with EF 20%. Repeat echocardiogram. Repeat chest x- ray in a.m. 3. CAD status post stents x5-patient denies chest pain. Continue aspirin, statin, Plavix, carvedilol. 4. Hypertension-stable, continue home carvedilol, losartan regimen. 5. Hyperlipidemia-continue statin. 6. Type 2 diabetes [id number] before meals at bedtime with sliding scale insulin. 7. Tobacco dependence-encouraged tobacco cessation. 8. History of polysubstance abuse-prior tox screen August 2017 with positive cannabinoids and cocaine. 9. Depression-continue home sertraline regimen. DVT prophylaxis-heparin subcu. This patient was seen by GERMAINE Ramirez under the supervision of Dr. Bobo.
--- NOTE | 2018-03-27 14:59 | ECHOD_ITS ---
Reason For Study: CHF Procedure This was a 2D Doppler, Color Flow transthoracic echocardiogram. The exam was of adequate technical quality. Exam performed portable in ICU/CCU. Left Ventricle Severely dilated left ventricle. Severe segmental systolic dysfunction (see wall motion). The estimated ejection fraction is 15 %. Diastolic function is indeterminate. Anterio-Basal: Hypokinetic. Lateral-Basal: Akinetic. Posterior-Basal: Akinetic. Infero-Basal: Severely Hypokinetic. Basal inferoseptal: Hypokinetic. Basal anteroseptal: Hypokinetic. Mid-Anterior : Akinetic. Mid- Lateral : Akinetic. Mid-Posterior: Hypokinetic. Mid-Inferior: Hypokinetic. Mid-inferoseptal : Akinetic. Mid-anteroseptal : Akinetic. [place] : Akinetic. Right Ventricle Mildly dilated right ventricle. ICD or pacer leads identified within the right ventricle. Mild global right ventricular systolic dysfunction. Atria The left atrium is severely enlarged. Normal right atrium. ICD or pacer leads identified within the right atrium. No doppler evidence for ASD. Mitral Valve There is no mitral annular calcification. Mild diffuse mitral valve thickening. Mild papillary muscle dysfunction of the mitral valve. Mild (1+) mitral valve insufficiency. Tricuspid Valve Normal tricuspid valve. Mild to moderate (1-2+) tricuspid valve insufficiency. Right ventricular systolic pressure estimated to be 73 mmHg. Aortic Valve Trisinus/trileaflet aortic valve. Mild focal aortic valve thickening. Pulmonic Valve The pulmonic valve is not well visualized. Trivial pulmonic valve insufficiency. Great Vessels Normal sized aortic root. Pericardium/Pleural No pericardial effusion. MMode/2D Measurements & Calculations LVIDd: 6.9 cm IVSd: 1.2 cm Ao root diam: 3.1 cm LVIDs: 6.7 cm LVPWd: 0.73 cm LA dimension: 4.8 cm FS: 2.8 % LAV(MOD-bp): 143.2 ml LVAd ap4: 48.3 cm2 SV(MOD-sp4): 33.4 ml LAV(MOD-bp) Indexed: 67.7 ml/m2 EDV(MOD-sp4): 213.0 ml LAV(MOD-sp2): 175.6 ml EDV(sp4-el): 227.6 ml LAV(MOD-sp4): 116.4 ml LVAs ap4: 44.1 cm2 ESV(MOD-sp4): 179.6 ml ESV(sp4-el): 190.7 ml EF(MOD-sp4): 15.7 % EF(sp4-el): 16.2 % SV(sp4-el): 36.9 ml LA A4 area: 30.9 cm2 RA A4 area: 18.2 cm2 Time Measurements MV dec time: 0.19 sec Doppler Measurements & Calculations MV E max marcelina: 104.8 cm/sec Ao V2 max: 81.4 cm/sec LV V1 max: 76.8 cm/sec MV A max marcelina: 26.1 cm/sec Ao max P.7 mmHg LV V1 max P.4 mmHg MV E/A: 4.0 Ao V2 mean: 56.0 cm/sec LV V1 mean P.2 mmHg Ao mean P.5 mmHg LV V1 mean: 48.5 cm/sec Ao V2 VTI: 10.1 cm LV V1 VTI: 10.4 cm PA V2 max: 65.4 cm/sec TR max marcelina: 382.0 cm/sec TR max P.4 mmHg Interpretation Summary Severely dilated left ventricle. Severe segmental systolic dysfunction (see wall motion). The estimated ejection fraction is 15 %. Mildly dilated right ventricle. Mild global right ventricular systolic dysfunction. The left atrium is severely enlarged. Mild diffuse mitral valve thickening. Mild papillary muscle dysfunction of the mitral valve. Mild (1+) mitral valve insufficiency. Mild to moderate (1-2+) tricuspid valve insufficiency. Mild focal aortic valve thickening. Trivial pulmonic valve insufficiency. Right ventricular systolic pressure estimated to be 73 mmHg c/w severe pulmonary hypertension. Diastolic function is indeterminate. ICD or pacer leads identified within the right atrium ICD or pacer leads identified within the right ventricle. Ordering Physician: GERMAINE Ramirez Referring Physician: Jesus Child Performed By: George Morton RCS
--- NOTE | 2018-03-27 15:28 | CASEMGMT ---
SW met with patient, introduced self and role at [facility]. Patient had a visitor present. Confirmed patient's address and it turns out we have the wrong address and phone number. Patient's pharmacy is [facility]. Dr Jesus Child is his primary care doctor. He currently is not seeing any specialists, but he said he would like to get back in with Dr Ramirez. He has no issues with getting medications. He is trying to get disability, but has been denied 3 times. He has an waste picker that is helping him. He does not anticipate any d/c needs. In physician's note it mentions polysubstance abuse. However, SW did not mention this as he had a visitor present. Jania CURRY MSW
[2018-03-27 18:05] LABS: Bedside Glucose 165 mg/dL (70-110)
[2018-03-27] MEDS: Atorvastatin Calcium 40 MG Tablet PO (22:17)
[2018-03-27 22:30] LABS: Bedside Glucose 165 mg/dL (70-110)
[2018-03-27] MEDS: 0.9% NaCl Peripheral Flush Adult/Peds IV (23:15)
--- NOTE | 2018-03-27 23:26 | NURSING ---
CLARIFIED WITH PHARMACY THAT IV LASIX IS OFF SCHEDULE D/T INABILITY TO OBTAIN IV ACCESS INITIALLY AND MIDLINE WAS PLACED LATER. OK TO GIVE LASIX AT THIS TIME PER PHARMACY
[2018-03-28] VITALS (18 sets, daily range): BP systolic 95–146; BP diastolic 69–96; PULSE 69–106; RESP 16–28; TEMP 35.7–36.9; O2SAT 94–100
[2018-03-28 00:47] LABS: Amphetamine Urine VISTA POSITIVE (<1000 ng/mL); Barbiturate Urine VISTA NEGATIVE (< 200 ng/mL); Benzodiazepine Urine VISTA NEGATIVE (< 200 ng/mL); Cocaine Urine VISTA NEGATIVE (< 300 ng/mL); Ecstacy Urine VISTA NEGATIVE (< 500 ng/mL); Methadone Urine VISTA NEGATIVE (< 300 ng/mL); PCP Urine VISTA NEGATIVE (< 25 ng/mL); THC Urine VISTA POSITIVE (< 50 ng/mL); Vista UDS pH Range 7
[2018-03-28 04:43] LABS: Anion Gap 9 (5-15); BUN 14 mg/dL (7-18); BUN/Creat Ratio 14.4 RATIO (10-20); Calcium,Total 8.6 mg/dL (8.5-10.1); Chloride 103 mmol/L (98-107); Creatinine, Serum 0.97 mg/dL (0.70-1.30); EST Glomerular Filtration Rate 91 mL/min (>60); Est Glom Filt Rate - Afr Amer 110 mL/min (>60); Estimated Creatinine Clearance 111.11 ml/min; Glucose 179 mg/dL (74-106); Potassium 3.8 mmol/L (3.5-5.1); Sodium Level 140 mmol/L (136-145)
--- NOTE | 2018-03-28 05:55 | RAD_ITS ---
STUDY: X-RAY CHEST REASON FOR EXAM: Male, 42 years old. Congestive heart failure TECHNIQUE: PA and lateral views of the chest. COMPARISON: 03/28/2018. 08/07/2016. FINDINGS: There is left lateral chest wall single chamber permanent pacemaker. There are superimposed monitor leads. There is opacification of the lung bases, small bilateral pleural effusion. There is no demonstrated pleural abnormality. There is borderline cardiac size. Normal mediastinum and kelly. Normal visualized pulmonary arteries. Normal visualized aortic arch and descending thoracic aorta. Normal visualized thoracic spine. Normal visualized ribs, clavicles, and shoulders. There is no demonstrated abnormality of the visualized soft tissue structures of the upper abdomen. RAD/Chest PA and Lateral IMPRESSION: Bilateral basilar airspace disease probably infiltrate/pneumonia with small bilateral pleural effusions. There is borderline cardiac size. Electronically Signed: Selam Diaz MD at 4:51 EST , Service support ,
[2018-03-28] MEDS: Heparin Injection (Vial) 5,000 UNIT/ML VIAL 5000 UNIT SC ×3 (06:48→21:46)
[2018-03-28] MEDS: Furosemide 40 MG/4 ML Vial IV ×3 (06:49→21:46)
[2018-03-28 07:01] LABS: Bedside Glucose 240 mg/dL (70-110)
[2018-03-28] MEDS: Ipratropium/Albuterol Sulfate 3 ML AMPUL.NEB INHALATION ×3 (07:06→19:50)
[2018-03-28] MEDS: Sertraline 50 MG Tablet PO (09:06)
[2018-03-28] MEDS: Losartan Potassium 100 MG Tablet PO (09:06)
[2018-03-28] MEDS: Clopidogrel Bisulfate 75 MG Tablet PO (09:06)
[2018-03-28] MEDS: Insulin Lispro 100 UNIT/ML INSULN.PEN SC ×3 (09:07→21:47)
[2018-03-28] MEDS: Aspirin E.C. 81 MG Tablet PO (09:07)
[2018-03-28] MEDS: Carvedilol 6.25 MG Tablet PO ×2 (09:07→21:47)
[2018-03-28] MEDS: Magnesium Oxide 400 MG Tablet PO (09:07)
[2018-03-28] MEDS: Spironolactone 25 MG Tablet PO (09:07)
[2018-03-28] MEDS: HYDROcodone Bitartrate/Apap 5/325 Tablet PO ×2 (09:22→21:47)
--- NOTE | 2018-03-28 09:36 | PCM.PROGNOTE ---
<Payton Mora - Last Filed: 03/28/18 09:45> Subjective: Patient seen and examined. Notes improvement in breathing. Complains of being tired. Remains on supplemental oxygen. - Physical Exam General: Alert, Oriented x3, Cooperative HEENT: Atraumatic, PERRLA, EOMI, Normocephalic Oral: Moist Mucosa Neck: Supple, No JVD, Negative Carotid Bruits Lungs: Diminished, Wheezes Cardiovascular: Regular rate, Regular Rhythm, Normal S1, Normal S2, No murmurs Abdomen: Bowel Sounds Present, Soft, Non Tender, Non-Distended Extremities: No clubbing, No cyanosis, No edema, Capillary Refill Less than 3 Seconds Skin: No rashes, No breakdown Musculoskeletal: No Tenderness to Palpation of Joints or Extremities Neurological: Cranial nerves II-XII grossly intact, Neuro grossly intact Psych/Mental Status: Normal Affect, Appropriate Vital Signs Temp Pulse Resp BP Pulse Ox 96.2 F L 80 16 117/81 H 100 03/28/18 09:00 03/28/18 09:00 03/28/18 09:00 03/28/18 09:00 03/28/18 09:00 Oxygen Flow Rate (L/min) 2 Oxygen Delivery Method Nasal Cannula Weight: 197 lb 12.074 oz Body Mass Index (BMI) 26.8 Finger Stick Blood Glucose 119 Intake and Output for Last 24 Hours 03/26/18 03/27/18 03/28/18 23:59 23:59 23:59 Intake Total 720 / 720 1020 / 1020 Output Total 1750 / 1750 3325 / 3325 Balance -1030 / -1030 -2305 / -2305 Laboratory Tests Past 24 Hrs 03/27/18 03/28/18 23:58 04:15 Sodium 140 Potassium 3.8 Chloride 103 Carbon Dioxide 28.0 Anion Gap 9 BUN 14 Creatinine 0.97 Estim Creat Clear Calc 111.11 Est GFR (MDRD) Af Amer 110 Est GFR (MDRD) Non-Af 91 BUN/Creatinine Ratio 14.4 Glucose 179 H Calcium 8.6 Urine Opiates Screen NEGATIVE Urine Methadone Screen NEGATIVE Ur Barbiturates Screen NEGATIVE Ur Phencyclidine Scrn NEGATIVE Ur Amphetamines Screen POSITIVE H U Methamphetamin-MDMA NEGATIVE U Benzodiazepines Scrn NEGATIVE Urine Cocaine Screen NEGATIVE U Cannabinoids Screen POSITIVE H Ur Drug Screen Comment POC Glucose 03/28/18 03/27/18 03/27/18 06:46 22:20 17:48 POC Glucose 240 H 165 H 165 H 03/27/18 10:56 POC Glucose 242 H Medical Necessity - Tobacco Use Smoking Status: Current every day smoker Tobacco Use: Cigarettes Assessment/Plan All Active Problems (Last Reviewed 03/12/18 @ 10:47 by Savanna Dave) Acute on chronic systolic CHF (congestive heart failure) (Resolved) Hypomagnesemia (Resolved) 1. Acute hypoxic respiratory insufficiency secondary to acute on chronic systolic CHF-Continue supplement oxygen to maintain O2 sat above 90%. 2. Acute on chronic systolic CHF/ischemic cardiomyopathy/s/p AICD-chest x-ray admission with mild CHF. BNP 362. Strict I&O. Daily weight. Lasix 40 mg IV every 8. Continue losartan, Aldactone. Follows with Dr. Ramirez. Echocardiogram July 2016 with EF 20%. Repeat shows an EF of 15%, RVSP estimated to be 73 mmHg. Mild to moderate tricuspid valve insufficiency, mild mitral valve insufficiency, mild mitral valve thickening, mild global right ventricular systolic dysfunction. Repeat chest x-ray this morning shows bilateral basilar airspace disease with small bilateral pleural effusions. Chest x-ray mentions possible pneumonia. No leukocytosis, afebrile, no productive cough. Patient admits to noncompliance with medication regimen and follow-up with cardiology. He also continues to use recreational drugs. Discussed with patient reduced EF compared to prior. Strongly encouraged patient to take prescribed medications as instructed and discontinue all recreational drug use. 3. CAD status post stents x5-patient denies chest pain. Continue aspirin, statin, Plavix, carvedilol. 4. Hypertension-stable, continue home carvedilol, losartan regimen. 5. Hyperlipidemia-continue statin. 6. Type 2 diabetes [id number] before meals at bedtime with sliding scale insulin. 7. Tobacco dependence-encouraged tobacco cessation. 8. History of polysubstance abuse-tox screen positive for amphetamines and cannabinoids. 9. Depression-continue home sertraline regimen. DVT prophylaxis-heparin subcu. Discharge planning: Anticipate discharge home tomorrow with continued improvement. Will need walking pulse ox prior to discharge. This patient was seen by GERMAINE Ramirez under the supervision of Dr. Marcum. <Brandy Marcum - Last Filed: 03/28/18 14:51> - Physical Exam Vital Signs Temp Pulse Resp BP Pulse Ox 97.8 F 74 16 143/87 H 94 03/28/18 14:39 03/28/18 14:39 03/28/18 14:39 03/28/18 14:39 03/28/18 14:39 Oxygen Flow Rate (L/min) 2 Oxygen Delivery Method Room Air Weight: 197 lb 12.074 oz Body Mass Index (BMI) 26.8 Finger Stick Blood Glucose 119 Intake and Output for Last 24 Hours 03/26/18 03/27/18 03/28/18 23:59 23:59 23:59 Intake Total 720 / 720 1020 / 1020 Output Total 1750 / 1750 3775 / 3775 Balance -1030 / -1030 -2755 / -2755 Laboratory Tests Past 24 Hrs 03/27/18 03/28/18 23:58 04:15 Sodium 140 Potassium 3.8 Chloride 103 Carbon Dioxide 28.0 Anion Gap 9 BUN 14 Creatinine 0.97 Estim Creat Clear Calc 111.11 Est GFR (MDRD) Af Amer 110 Est GFR (MDRD) Non-Af 91 BUN/Creatinine Ratio 14.4 Glucose 179 H Calcium 8.6 Urine Opiates Screen NEGATIVE Urine Methadone Screen NEGATIVE Ur Barbiturates Screen NEGATIVE Ur Phencyclidine Scrn NEGATIVE Ur Amphetamines Screen POSITIVE H U Methamphetamin-MDMA NEGATIVE U Benzodiazepines Scrn NEGATIVE Urine Cocaine Screen NEGATIVE U Cannabinoids Screen POSITIVE H Ur Drug Screen Comment POC Glucose 03/28/18 03/28/18 03/27/18 11:28 06:46 22:20 POC Glucose 209 H 240 H 165 H 03/27/18 17:48 POC Glucose 165 H Assessment/Plan Patient seen by Payton HERRON under m y supervsion. Patient admitted with a complaint of shortness of breath. He is being managed for systolic CHF exacerbation. He is on IV lasix q8. Patient seen and examined. He had no complaints and felt well. SOB had resolved, though he remained on oxygen. He denied fever, chills, cough, chest pain, SOB, abdominal pain, diarrhea or vomiting. Review of systems otherwise negative. o/e: Vital Signs Height 6 ft Weight: 197 lb 12.074 oz Weight in Pounds 197.8 lbs Pulse Ox 94 Temperature 97.8 F Pulse Rate 74 Respiratory Rate 16 Blood Pressure 143/87 Blood Pressure Position Semi-Fowlers General: Alert, Oriented x3, Cooperative HEENT: Atraumatic, PERRLA, EOMI, Normocephalic Oral: Moist Mucosa Neck: Supple, No JVD, Negative Carotid Bruits Lungs:clear to auscultation Cardiovascular: Regular rate, Regular Rhythm, Normal S1, Normal S2, No murmurs Abdomen: Bowel Sounds Present, Soft, Non Tender, Non-Distended Extremities: No clubbing, No cyanosis, No edema, Capillary Refill Less than 3 Seconds Skin: No rashes, No breakdown Musculoskeletal: No Tenderness to Palpation of Joints or Extremities Neurological: Cranial nerves II-XII grossly intact, Neuro grossly intact Psych/Mental Status: Normal Affect, Appropriate Plan is to continue diuresis. Strict input output chart,a nd restrict fluids to 1500cc/24 hrs. contiue with losartan and aldacdtone. EF is 15%, with RVSP of 73mmHg. CXR today shows bilateral airspace disease, but he has no clinical pointers towards pneumonia. Has ICD in place. Counselled on compliance with meds. Will need walking pulse ox prior to discharge. Rest of note, assessment, and plan as per Payton Mora NP-C's note. Code Visit Inpatient E&M: 98954 Subs Hosp L3
[2018-03-28 11:36] LABS: Bedside Glucose 209 mg/dL (70-110)
--- NOTE | 2018-03-28 13:31 | CASEMGMT ---
SW met w/pt in the room in regard to substance abuse. Pt admits to smoking marijuana, states does not use other drugs. 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 Pt states he has to do something, has been denied disability three times. Pt also states used to sniff cocaine but stopped doing that as well. Pt states he does not do crystal meth, is a nasty drug. Pt very repetitive in his speaking. Pt declined any referral in regard to drug use. Pt then went on to tell this SW he used to take Xanax for depression and this helped, but has not been following up w/his PCP who was prescribing it. Pt also states has been buying Percocet on the street since he cannot get it prescribed any more. SW asked if he has been to pain management in the past, pt states he has but stopped going, pt was not clear as to why. SW asked pt if he would be interested in going to [facility] to get back involved w/psychiatry, pt is agreeable to SW making a referral for an intake. SW called [facility], Betsy is not able to make an appointment at this time as she is making appointments for other people. SW will call back later today or tomorrow to set up appointment. EMILIANO Srinivasan, HUMAN CAPITAL ANALYST
[2018-03-28 16:40] LABS: Bedside Glucose 289 mg/dL (70-110)
[2018-03-28] MEDS: Atorvastatin Calcium 40 MG Tablet PO (21:47)
[2018-03-28 22:30] LABS: Bedside Glucose 186 mg/dL (70-110)
[2018-03-29] VITALS (7 sets, daily range): BP systolic 106–120; BP diastolic 71–77; PULSE 78–92; RESP 15–18; TEMP 36.6; O2SAT 94–96
[2018-03-29] MEDS: Furosemide 40 MG/4 ML Vial IV (05:36)
[2018-03-29] MEDS: Heparin Injection (Vial) 5,000 UNIT/ML VIAL 5000 UNIT SC (05:36)
[2018-03-29 07:06] LABS: Bedside Glucose 350 mg/dL (70-110)
[2018-03-29] MEDS: Ipratropium/Albuterol Sulfate 3 ML AMPUL.NEB INHALATION (07:35)
[2018-03-29] MEDS: HYDROcodone Bitartrate/Apap 5/325 Tablet PO (08:33)
[2018-03-29] MEDS: Magnesium Oxide 400 MG Tablet PO (08:35)
[2018-03-29] MEDS: Aspirin E.C. 81 MG Tablet PO (08:35)
[2018-03-29] MEDS: Insulin Lispro 100 UNIT/ML INSULN.PEN SC (08:43)
[2018-03-29] MEDS: Clopidogrel Bisulfate 75 MG Tablet PO (08:46)
[2018-03-29] MEDS: Sertraline 50 MG Tablet PO (08:47)
[2018-03-29] MEDS: Carvedilol 6.25 MG Tablet PO (08:48)
[2018-03-29] MEDS: Spironolactone 25 MG Tablet PO (08:48)
[2018-03-29] MEDS: Losartan Potassium 100 MG Tablet PO (08:48)
--- NOTE | 2018-03-29 08:52 | CASEMGMT ---
Addendum entered by Jania Rowland 03/29/18 09:59: SW printed out patient's appt with the address and phone number of [facility]. SW gave this to patient. Jania HINOJOSA Original Note: MEKA called and scheduled patient's appointment at [facility]. Appt was put into computer. His appointment is Monday at 10:30a. Jania CURRY MSW
[2018-03-29 11:30] LABS: Bedside Glucose 77 mg/dL (70-110)
--- NOTE | 2018-03-29 12:18 | PCM.DC ---
You will use the following diet at home:: Cardiac Your food should be the consistency of: Regular Your liquids should be the consistency of: Regular/Thin Discharge Activity: Return to Normal Activity Instructions: ED CHF General Additional Instructions: Take note of all your medications. Continue on all your medications. Weigh yourself everyday. Let your primary care doctopr/accreditation manager know if you gain more than 4 pouynds in a couple of days. Watch your fluid intake; restrict your fluids to less than 1.5L day. You will need to repeat blood work within 1 week. You are advised to quit smoking. Keep a log of your blood sugars and show them to your doctor. Allergies/Adverse Reactions: Allergies No Known Allergies Allergy (Verified 03/09/18 08:42) Medications to take at Discharge Magnesium Oxide [Mag-Ox 400] 400 mg PO DAILYCM #30 tab 08/08/16 Spironolactone [Aldactone] 25 mg PO DAILY #30 tab 08/08/16 Insulin Glargine,Hum.rec.anlog [Basaglstacy Camposikpen U-100] 14 unit SQ DAILY 04/09/17 alprazolam 1 mg tablet 1 mg PO PRN PRN 30 Days #60 07/12/17 hydrocodone 10 mg-acetaminophen 325 mg tablet 1 tab PO PRN PRN 30 Days #120 07/12/17 sennosides 8.6 mg tablet 8.6 mg PO BID PRN 08/11/17 Hydrocodone Bitart/Apap 5-325 [[place] 5/325] 1 tab PO Q6H PRN PRN 2 Days #6 tab 10/24/17 Aspirin E.C. [Ecotrin] 81 mg PO DAILY@0800 #30 tablet 03/29/18 Atorvastatin Calcium [Lipitor] 40 mg PO DAILY #30 tablet 03/29/18 Carvedilol 3.125 mg PO BID 30 Days #30 tab 03/29/18 Clopidogrel Bisulfate [Plavix] 75 mg PO DAILY #30 tablet 03/29/18 Furosemide [Lasix] 80 mg PO BID #60 tablet 03/29/18 Losartan Potassium [Cozaar] 100 mg PO DAILY #30 tablet 03/29/18 Potassium Chloride [Klor-Con] 20 meq PO BID #60 packet 03/29/18 Sertraline HCl [Zoloft] 1 tab PO DAILY #30 tablet 03/29/18 Spironolactone [Aldactone] 25 mg PO DAILY #30 tablet 03/29/18 The following prescriptions were given: Aspirin E.C. [Ecotrin] 81 mg PO DAILY@0800 #30 tablet Atorvastatin Calcium [Lipitor] 40 mg PO DAILY #30 tablet Clopidogrel Bisulfate [Plavix] 75 mg PO DAILY #30 tablet Losartan Potassium [Cozaar] 100 mg PO DAILY #30 tablet Sertraline HCl [Zoloft] 1 tab PO DAILY #30 tablet Spironolactone [Aldactone] 25 mg PO DAILY #30 tablet Carvedilol 3.125 mg PO BID 30 Days #30 tab Furosemide [Lasix] 80 mg PO BID #60 tablet Potassium Chloride [Klor-Con] 20 meq PO BID #60 packet Orders to be completed after discharge: Basic Metabolic Profile (BMP) Time Frame: 1 Week, Location: Laboratory Primary Care Physician: Jesus Child [Primary Care Provider] - Please follow up with your Primary Care Physician in: within 2 weeks Test Results: Test results from this visit will be discussed in further detail at your follow-up appointment, if applicable. Please Follow Up With: [facility] When: Monday Please Follow Up With: Faisal Ramirez MD When: 1-2 weeks Proposed Discharge Date: 03/29/18
--- NOTE | 2018-03-29 12:22 | DCINST_ITS ---
You will use the following diet at home:: Cardiac Your food should be the consistency of: Regular Your liquids should be the consistency of: Regular/Thin Discharge Activity: Return to Normal Activity Instructions: ED CHF General Additional Instructions: Take note of all your medications. Continue on all your medications. Weigh yourself everyday. Let your primary care doctopr/subsea engineer know if you gain more than 4 pouynds in a couple of days. Watch your fluid intake; restrict your fluids to less than 1.5L day. You will need to repeat blood work within 1 week. You are advised to quit smoking. Keep a log of your blood sugars and show them to your doctor. Allergies/Adverse Reactions: Allergies No Known Allergies Allergy (Verified 03/09/18 08:42) Medications to take at Discharge Magnesium Oxide [Mag-Ox 400] 400 mg PO DAILYCM #30 tab 08/08/16 Spironolactone [Aldactone] 25 mg PO DAILY #30 tab 08/08/16 Insulin Glargine,Hum.rec.anlog [Basaglstacy Camposikpen U-100] 14 unit SQ DAILY 04/09/17 alprazolam 1 mg tablet 1 mg PO PRN PRN 30 Days #60 07/12/17 hydrocodone 10 mg-acetaminophen 325 mg tablet 1 tab PO PRN PRN 30 Days #120 07/12/17 sennosides 8.6 mg tablet 8.6 mg PO BID PRN 08/11/17 Hydrocodone Bitart/Apap 5-325 [[place] 5/325] 1 tab PO Q6H PRN PRN 2 Days #6 tab 10/24/17 Aspirin E.C. [Ecotrin] 81 mg PO DAILY@0800 #30 tablet 03/29/18 Atorvastatin Calcium [Lipitor] 40 mg PO DAILY #30 tablet 03/29/18 Carvedilol 3.125 mg PO BID 30 Days #30 tab 03/29/18 Clopidogrel Bisulfate [Plavix] 75 mg PO DAILY #30 tablet 03/29/18 Furosemide [Lasix] 80 mg PO BID #60 tablet 03/29/18 Losartan Potassium [Cozaar] 100 mg PO DAILY #30 tablet 03/29/18 Potassium Chloride [Klor-Con] 20 meq PO BID #60 packet 03/29/18 Sertraline HCl [Zoloft] 1 tab PO DAILY #30 tablet 03/29/18 Spironolactone [Aldactone] 25 mg PO DAILY #30 tablet 03/29/18 The following prescriptions were given: Aspirin E.C. [Ecotrin] 81 mg PO DAILY@0800 #30 tablet Atorvastatin Calcium [Lipitor] 40 mg PO DAILY #30 tablet Clopidogrel Bisulfate [Plavix] 75 mg PO DAILY #30 tablet Losartan Potassium [Cozaar] 100 mg PO DAILY #30 tablet Sertraline HCl [Zoloft] 1 tab PO DAILY #30 tablet Spironolactone [Aldactone] 25 mg PO DAILY #30 tablet Carvedilol 3.125 mg PO BID 30 Days #30 tab Furosemide [Lasix] 80 mg PO BID #60 tablet Potassium Chloride [Klor-Con] 20 meq PO BID #60 packet Orders to be completed after discharge: Basic Metabolic Profile (BMP) Time Frame: 1 Week, Location: Laboratory Primary Care Physician: Jesus Child [Primary Care Provider] - Please follow up with your Primary Care Physician in: within 2 weeks Test Results: Test results from this visit will be discussed in further detail at your follow- up appointment, if applicable. Please Follow Up With: [facility] When: Monday Please Follow Up With: Faisal Ramirez MD When: 1-2 weeks Proposed Discharge Date: 03/29/18
--- NOTE | 2018-03-29 12:22 | DS.PCM_ITS ---
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/28/17) SICD per Dr Berry @ [facility] Nicotine dependence (Chronic) Old myocardial infarction (Chronic) Hypertension (Chronic) History of coronary artery stent placement (Chronic) PCI-MEHRDAD-LAD 08/2014, GRI-GAH-Drdi-Mid CX and Prox-Mid RCA 03/18/15, Thrombosis of CX stent 03/25/15 Atherosclerosis of coronary artery of [place] heart without angina pectoris (Chronic) PCI-MEHRDAD-LAD 08/2014, GEA-DCI-Cpna-Mid CX and Prox-Mid RCA 03/18/15, Thrombosis of CX stent 03/25/15 Ischemic cardiomyopathy (Chronic) EF 20% per echo 08/08/2016 Hyperlipidemia (Chronic) Type 2 diabetes mellitus (Chronic) Chronic systolic CHF (congestive heart failure) (Chronic) Hospital Course and Treatment Imaging Results: Clinical Impression(s) from Imaging Studies Chest X-Ray 03/27/18 06:21 IMPRESSION: There is borderline cardiac size and mild congestive heart failure. Electronically Signed: Selam Diaz MD at 7:13 EST , Service support , Chest X-Ray 03/28/18 05:55 IMPRESSION: Bilateral basilar airspace disease probably infiltrate/pneumonia with small bilateral pleural effusions. There is borderline cardiac size. Electronically Signed: Selam Diaz MD at 4:51 EST , Service support , None Operations: None Procedures: 2-D Echocardiogram Summary of Care Provided: The patient is a 42 year old M past medical history of chronic systolic CHF, ischemic cardiomyopathy, possible stents, status post AICD, hypertension, hyperlipidemia, type II DM who comes in with complaints of shortness of breath and was managed as acute on chronic systolic CHF with IV Lasix with improvement. Patient continues to smoke, is noncompliant with medical therapy. He improved and was off oxygen. Ambulated without increased use of oxygen. He was advised to quit smoking. Advised to be compliant with medication and discontinue use of recreational drugs. He would need to follow-up with his primary care doctor and cardiology within 2 weeks and have repeat blood work done within a week. Subjective: On the day of discharge, patient felt well, denied any dizziness or palpitations or shortness of breath. No acute events were noted overnight. - Physical Exam General: Alert, Oriented x3, Cooperative HEENT: Atraumatic, PERRLA, EOMI, Normocephalic Oral: Moist Mucosa Neck: Supple, No JVD, Negative Carotid Bruits Lungs: Clear to auscultation, Normal air movement Cardiovascular: Regular rate, Regular Rhythm, Normal S1, Normal S2, No murmurs Abdomen: Bowel Sounds Present, Soft, Non Tender Extremities: No edema Skin: No rashes, No breakdown Musculoskeletal: No Tenderness to Palpation of Joints or Extremities Lymphatic: No Cervical, Supraclavicular, or Inguinal Adenopathy Neurological: Cranial nerves II-XII grossly intact, Neuro grossly intact Psych/Mental Status: Normal Affect, Appropriate Vital Signs Temp Pulse Resp BP Pulse Ox 98 F 90 16 119/77 96 03/29/18 08:38 03/29/18 12:09 03/29/18 08:38 03/29/18 08:38 03/29/18 08:38 Oxygen Flow Rate (L/min) 2 Oxygen Delivery Method Room Air Weight: 89.7 kg Body Mass Index (BMI) 26.8 Finger Stick Blood Glucose 119 Intake and Output for Last 24 Hours 03/27/18 03/28/18 03/29/18 23:59 23:59 23:59 Intake Total 720 / 720 1260 / 1260 Output Total 1750 / 1750 4150 / 4150 Balance -1030 / -1030 -2890 / -2890 POC Glucose 03/29/18 03/29/18 03/28/18 11:26 06:57 21:40 POC Glucose 77 350 H 186 H 03/28/18 16:30 POC Glucose 289 H Discharge Diet: Low fat/ Low Cholesterol, 2000 mg Sodium Diet, Carb Control Diet Discharge Activity: Return to Normal Activity Home Medications: Medications to take at Discharge Magnesium Oxide [Mag-Ox 400] 400 mg PO DAILYCM #30 tab 08/08/16 Spironolactone [Aldactone] 25 mg PO DAILY #30 tab 08/08/16 Insulin Glargine,Hum.rec.anlog [Basaglar Sherlypen U-100] 14 unit SQ DAILY 04/09/17 alprazolam 1 mg tablet 1 mg PO PRN PRN 30 Days #60 07/12/17 hydrocodone 10 mg-acetaminophen 325 mg tablet 1 tab PO PRN PRN 30 Days #120 07/12/17 sennosides 8.6 mg tablet 8.6 mg PO BID PRN 08/11/17 Hydrocodone Bitart/Apap 5-325 [[place] 5/325] 1 tab PO Q6H PRN PRN 2 Days #6 tab 10/24/17 Aspirin E.C. [Ecotrin] 81 mg PO DAILY@0800 #30 tablet 03/29/18 Atorvastatin Calcium [Lipitor] 40 mg PO DAILY #30 tablet 03/29/18 Carvedilol 3.125 mg PO BID 30 Days #30 tab 03/29/18 Clopidogrel Bisulfate [Plavix] 75 mg PO DAILY #30 tablet 03/29/18 Furosemide [Lasix] 80 mg PO BID #60 tablet 03/29/18 Gabapentin [Neurontin] 800 mg PO BIDCM #60 tablet 03/29/18 Losartan Potassium [Cozaar] 100 mg PO DAILY #30 tablet 03/29/18 Potassium Chloride [Klor-Con] 20 meq PO BID #60 packet 03/29/18 Sertraline HCl [Zoloft] 1 tab PO DAILY #30 tablet 03/29/18 Spironolactone [Aldactone] 25 mg PO DAILY #30 tablet 03/29/18 Following Prescrptions Were Given to Patient: Aspirin E.C. [Ecotrin] 81 mg PO DAILY@0800 #30 tablet Atorvastatin Calcium [Lipitor] 40 mg PO DAILY #30 tablet Clopidogrel Bisulfate [Plavix] 75 mg PO DAILY #30 tablet Losartan Potassium [Cozaar] 100 mg PO DAILY #30 tablet Sertraline HCl [Zoloft] 1 tab PO DAILY #30 tablet Spironolactone [Aldactone] 25 mg PO DAILY #30 tablet Carvedilol 3.125 mg PO BID 30 Days #30 tab Furosemide [Lasix] 80 mg PO BID #60 tablet Gabapentin [Neurontin] 800 mg PO BIDCM #60 tablet Potassium Chloride [Klor-Con] 20 meq PO BID #60 packet Other Amb Orders: Basic Metabolic Profile (BMP) Time Frame: 1 Week, Location: Laboratory Primary Care Physician: Jesus Child [Primary Care Provider] - Please follow up with your Primary Care Physician in: within 2 weeks Please Follow Up With: [facility] When: Monday Please Follow Up With: Faisal Ramirez MD When: 1-2 weeks Patient Instructions: ED CHF General Disposition: Home Minutes spent on discharge:: 40 Patient Condition:: Stable Medical Necessity - Tobacco Use Smoking Status: Current every day smoker Tobacco Use: Cigarettes Meaningful Use Info Meaningful Use Diagnoses (Choose all that apply): CHF - CHF KENNETH/ARB ordered at discharge?: Yes Documented LVEF (%): 15 Code Visit Inpatient E&M: 64146 Disch Hosp
--- NOTE | 2018-04-02 07:34 | CASEMGMT ---
RN CM Discharge Follow-up Phone Call: MADELINEJosr: Wei Strata: 3 Call Date: 03/30/18 Discharge Date: 03/29/18 Time of Call: 1630 Duration: 0 ? Admitting Diagnosis: Acute on chronic Systolic CHF This RN CM attempted to contact pt via telephone for discharge follow-up. A female answered and stated I had the wrong number. Upon review of the SW documentation, noted that demographic information needed updated. On this date confirmed that the phone number currently listed is correct. Feliciano Montero RN
--- OUTSIDE RECORDS SUMMARY | 2018-05-08 19:34 | XMS RPT_ITS ---
:1975 Author Organization OHIP Support Name Relationship Address Phone GRAM, KATRIN Unavailable [address] + [place] [address] UE Unavailable Unavailable Unavailable ONEL YA Unavailable [address] + [place] [address] GRAM, KATRIN Unavailable [address] + [place] [address] UE Unavailable Unavailable Unavailable ONEL YA Unavailable [address] + [place] [address] GRAM, KATRIN Unavailable [address] + [place] [address] UE Unavailable Unavailable Unavailable ONEL YA Unavailable [address] + [place] [address] GRAM, KATRIN Unavailable [address] + [place] [address] UE Unavailable Unavailable Unavailable ONEL YA Unavailable [address] [facility] + [place] [address] GRAM, KATRIN Unavailable [address] + [place] [address] UE Unavailable Unavailable Unavailable ONEL YA Unavailable [address] + [place] [address] UE Unavailable Unavailable Unavailable ONEL YA Unavailable [address] + [place] [address] JEANETTE MORA Unavailable Unavailable Unavailable ONEL YA Unavailable Unavailable Unavailable JEANETTE MORA Unavailable Unavailable Unavailable ONEL YA Unavailable Unavailable Unavailable UE Unavailable Unavailable Unavailable ONEL YA Unavailable [address] + [place] [address] UE Unavailable Unavailable Unavailable YA, ONEL Unavailable [address] [phone] [place] [address] UE Unavailable Unavailable Unavailable YA, ONEL Unavailable [address] [phone] [place] [address] UE Unavailable Unavailable Unavailable YA, ONEL Unavailable [address] [phone] [place] [address] UE Unavailable Unavailable Unavailable YA, ONEL Unavailable [address] [phone] [place] [address] UE Unavailable Unavailable Unavailable YA, ONEL Unavailable [address] [phone] [place] [address] EVANGELINA JEANETTE Unavailable Unavailable Unavailable YA, ONEL Unavailable Unavailable Unavailable UE Unavailable Unavailable Unavailable YA, ONEL Unavailable [address] [phone] [place] [address] EVANGELINA JEANETTE Unavailable Unavailable Unavailable YA, ONEL Unavailable Unavailable Unavailable EVANGELINA JEANETTE Unavailable Unavailable Unavailable YA, ONEL Unavailable Unavailable Unavailable UE Unavailable Unavailable Unavailable YA ONEL Unavailable [address] [phone] [place] [address] Care Team Providers Name Role Phone DOMINIQUE CIERA G Admitting Unavailable DOMINIQUE, CIERA G Attending Unavailable MATEUSZ, FELIX A Primary Care Unavailable MATEUSZ, FELIX A Primary Care Unavailable DOMINIQUE, CIERA G Admitting Unavailable DOMINIQUE, CIERA G Attending Unavailable SELF, SELF Referring Unavailable RAVI JORGENSEN Attending Unavailable MATEUSZ, FELIX A Referring Unavailable MATEUSZ, FELIX A Primary Care Unavailable AUGOSTINI, RSA GRETCHEN Attending Unavailable AUGOSTINI, RSA GRETCHEN Referring Unavailable MATEUSZ, FELIX A Primary Care Unavailable AUGOSTINI, RSA GRETCHEN Attending Unavailable AUGOSTINI, RSA GRETCHEN Referring Unavailable MATEUSZ, FELIX A Primary Care Unavailable Boaz Cabrera Attending Unavailable Tereletsky, Felix Referring Unavailable Mateusz, Felix Attending Unavailable Mateusz, Felix Primary Care Unavailable Danica Gonzales Attending Unavailable Danica Gonzales Attending Unavailable Danica Gonzales Attending Unavailable Faisal Ramirez Attending Unavailable Mateusz, Felix Referring Unavailable Mateusz, Felix Primary Care Unavailable Mateusz, Felix Primary Care Unavailable Jesus Jernigan Attending Unavailable Mateusz, Felix Attending Unavailable Mateusz, Felix Primary Care Unavailable Mateusz, Felix Referring Unavailable Mateusz, Felix Primary Care Unavailable [facility] Annette Attending Unavailable Faisal Ramirez Attending Unavailable Mateusz, Felix Referring Unavailable Mateusz, Felix Primary Care Unavailable Tereletsky, Felix Admitting Unavailable Paintsil, Totz Attending Unavailable Tereletsky, Felix Admitting Unavailable Mateusz, Felix Primary Care Unavailable Tereletsky, Felix Consulting Unavailable Tereletsky, Felix Attending Unavailable Tereletsky, Felix Admitting Unavailable Mateusz, Felix Primary Care Unavailable Koram, Brandy Carlita Consulting Unavailable Koram, Brandy Carlita Attending Unavailable Tereletsky, Felix Admitting Unavailable Paintsil, Totz Attending Unavailable Mateusz, Felix Primary Care Unavailable Paintsil, Totz Consulting Unavailable PROBLEMS PROBLEMS DATE TYPE CONDITION / CODE ATTENDING STATUS SOURCE 10/24/2017 Unknown K08.89 - Other [facility], [facility] specified disorders [facility] and Hospital supporting Repository structures / K08.89(ICD-10) 10/13/2017 Unknown E11.49 - Type 2 Felix Child [facility] diabetes mellitus [facility] with other diabetic Hospital neurological Repository complication / E11.49(ICD-10) 08/11/2017 Unknown E78.5 - Faisal Ramirez Active Clear Hyperlipidemia, Community unspecified / Hospital E78.5(ICD-10) Repository 08/11/2017 Unknown I25.5 - Ischemic Faisal Ramirez Active Clear cardiomyopathy / Community I25.5(ICD-10) Hospital Repository 06/28/2017 Admitting Cardiomyopathy, DOMINIQUE, CIERA G Active [facility] diagnosis unspecified (HCC) / University I42.9(ICD-10) [facility] Repository 06/28/2017 Admitting Other acute DOMINIQUE, CIERA G Active [facility] diagnosis postprocedural pain [place] / G89.18(ICD-10) [facility] Repository PROCEDURES PROCEDURES No Procedure Records FoundRESULTS RESULTS 12 LEAD ELECTROCARDIOGRAM Observed: 03/30/2018 Status: F Source: [place] 2:23 PM [facility] REPOSITORY [facility] Cardiovascular Services [address] [place] [address] 12 Lead EKG 03/27/18 0618 MR#: [id number] Acct: [id number] Name: JEANETTE MORA Eusebia Rep #: [id number] : 1975 42 From: Prosper Kumar MD Attending Dr: Marci Garvey MD Status: DIS IN Ordering Dr: Go Mitchell MD Date: 03/27/18 Location: [facility] Sex: M AA Admitted: 03/27/18 Test Reason : SOB Blood Pressure : / mmHG Vent. Rate : 109 BPM Atrial Rate : 109 BPM P-R Int : 152 ms QRS Dur : 088 ms QT Int : 354 ms P-R-T Axes : 054 -45 104 degrees QTc Int : 476 ms Sinus tachycardia with occasional Premature ventricular complexes Possible Left atrial enlargement Left anterior fascicular block Anteroseptal infarct (cited on or before 05-DEC-2014) Abnormal ECG Confirmed by PROSPER KUMAR MD ([id number]), newspaper or periodical editor KEESHA DURÁN ([id number]) on 03/30/2018 2:22:42 PM Referred By: CHANDAN Confirmed By:PROSPER KUMAR MD 03/30/18 1422 Date Prosper Kumar MD CC: Felix Child; Marci Garvey MD; Go Mitchell MD; Felix Child DO Signed DISCHARGE SUMMARY Observed: 03/29/2018 Status: F Source: [place] 5:03 PM [facility] REPOSITORY [facility] Medical Records Department [address] [place] [address] Discharge Summary 03/29/18 1222 MR#: [id number] Acct: [id number] Name: JEANETTE MORA Rep #: [id number] : 1975 42 From: Marci Garvey MD PCP: Felix Child Status: DIS IN Y [facility] 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/28/17) SICD per Dr Berry @ [facility] Nicotine dependence (Chronic) Old myocardial infarction (Chronic) Hypertension (Chronic) History of coronary artery stent placement (Chronic) PCI-MEHRDAD-LAD 08/2014, ZNG-LNX-Rkvn-Mid CX and Prox-Mid RCA 03/18/15, Thrombosis of CX stent 03/25/15 Atherosclerosis of coronary artery of lime heart without angina pectoris (Chronic) PCI-MEHRDAD-LAD 08/2014, GXY-YPE-Qekn-Mid CX and Prox-Mid RCA 03/18/15, Thrombosis of CX stent 03/25/15 Ischemic cardiomyopathy (Chronic) EF 20% per echo 08/08/2016 Hyperlipidemia (Chronic) Type 2 diabetes mellitus (Chronic) Chronic systolic CHF (congestive heart failure) (Chronic) Hospital Course and Treatment Imaging Results: Clinical Impression(s) from Imaging Studies Chest X-Ray 03/27/18 06:21 IMPRESSION: There is borderline cardiac size and mild congestive heart failure. Electronically Signed: Selam Diaz MD at 7:13 EST , Service support , Chest X-Ray 03/28/18 05:55 IMPRESSION: Bilateral basilar airspace disease probably infiltrate/pneumonia with small bilateral pleural effusions. There is borderline cardiac size. Electronically Signed: Selam Diaz MD at 4:51 EST , Service support , None Operations: None Procedures: 2-D Echocardiogram Summary of Care Provided: The patient is a 42 year old M past medical history of chronic systolic CHF, ischemic cardiomyopathy, possible stents, status post AICD, hypertension, hyperlipidemia, type II DM who comes in with complaints of shortness of breath and was managed as acute on chronic systolic CHF with IV Lasix with improvement. Patient continues to smoke, is noncompliant with medical therapy. He improved and was off oxygen. Ambulated without increased use of oxygen. He was advised to quit smoking. Advised to be compliant with medication and discontinue use of recreational drugs. He would need to follow-up with his primary care doctor and cardiology within 2 weeks and have repeat blood work done within a week. Subjective: On the day of discharge, patient felt well, denied any dizziness or palpitations or shortness of breath. No acute events were noted overnight. - Physical Exam General: Alert, Oriented x3, Cooperative HEENT: Atraumatic, PERRLA, EOMI, Normocephalic Oral: Moist Mucosa Neck: Supple, No JVD, Negative Carotid Bruits Lungs: Clear to auscultation, Normal air movement Cardiovascular: Regular rate, Regular Rhythm, Normal S1, Normal S2, No murmurs Abdomen: Bowel Sounds Present, Soft, Non Tender Extremities: No edema Skin: No rashes, No breakdown Musculoskeletal: No Tenderness to Palpation of Joints or Extremities Lymphatic: No Cervical, Supraclavicular, or Inguinal Adenopathy Neurological: Cranial nerves II-XII grossly intact, Neuro grossly intact Psych/Mental Status: Normal Affect, Appropriate Vital Signs Temp Pulse Resp BP Pulse Ox 98 F 90 16 119/77 96 03/29/18 08:38 03/29/18 12:09 03/29/18 08:38 03/29/18 08:38 03/29/18 08:38 Oxygen Flow Rate (L/min) 2 Oxygen Delivery Method Room Air Weight: 89.7 kg Body Mass Index (BMI) 26.8 Finger Stick Blood Glucose 119 Intake and Output for Last 24 Hours Intake Total 720 / 720 1260 / 1260 Output Total 1750 / 1750 4150 / 4150 Balance -1030 / -1030 -2890 / -2890 POC Glucose POC Glucose 77 350 H 186 H POC Glucose 289 H Discharge Diet: Low fat/ Low Cholesterol, 2000 mg Sodium Diet, Carb Control Diet Discharge Activity: Return to Normal Activity Home Medications: Medications to take at Discharge Magnesium Oxide [Mag-Ox 400] 400 mg PO DAILYCM #30 tab 08/08/16 Spironolactone [Aldactone] 25 mg PO DAILY #30 tab 08/08/16 Insulin Glargine,Hum.rec.anlog [Basaglar Kwikpen U-100] 14 unit SQ DAILY 04/09/17 alprazolam 1 mg tablet 1 mg PO PRN PRN 30 Days #60 07/12/17 hydrocodone 10 mg-acetaminophen 325 mg tablet 1 tab PO PRN PRN 30 Days #120 07/12/17 sennosides 8.6 mg tablet 8.6 mg PO BID PRN 08/11/17 Hydrocodone Bitart/Apap 5-325 [[place] 5/325] 1 tab PO Q6H PRN PRN 2 Days #6 tab 10/24/17 Aspirin E.C. [Ecotrin] 81 mg PO DAILY@0800 #30 tablet 03/29/18 Atorvastatin Calcium [Lipitor] 40 mg PO DAILY #30 tablet 03/29/18 Carvedilol 3.125 mg PO BID 30 Days #30 tab 03/29/18 Clopidogrel Bisulfate [Plavix] 75 mg PO DAILY #30 tablet 03/29/18 Furosemide [Lasix] 80 mg PO BID #60 tablet 03/29/18 Gabapentin [Neurontin] 800 mg PO BIDCM #60 tablet 03/29/18 Losartan Potassium [Cozaar] 100 mg PO DAILY #30 tablet 03/29/18 Potassium Chloride [Klor-Con] 20 meq PO BID #60 packet 03/29/18 Sertraline HCl [Zoloft] 1 tab PO DAILY #30 tablet 03/29/18 Spironolactone [Aldactone] 25 mg PO DAILY #30 tablet 03/29/18 Following Prescrptions Were Given to Patient: Aspirin E.C. [Ecotrin] 81 mg PO DAILY@0800 #30 tablet Atorvastatin Calcium [Lipitor] 40 mg PO DAILY #30 tablet Clopidogrel Bisulfate [Plavix] 75 mg PO DAILY #30 tablet Losartan Potassium [Cozaar] 100 mg PO DAILY #30 tablet Sertraline HCl [Zoloft] 1 tab PO DAILY #30 tablet Spironolactone [Aldactone] 25 mg PO DAILY #30 tablet Carvedilol 3.125 mg PO BID 30 Days #30 tab Furosemide [Lasix] 80 mg PO BID #60 tablet Gabapentin [Neurontin] 800 mg PO BIDCM #60 tablet Potassium Chloride [Klor-Con] 20 meq PO BID #60 packet Other Amb Orders: Basic Metabolic Profile (BMP) Time Frame: 1 Week, Location: Laboratory Primary Care Physician: Felix Child [Primary Care Provider] - Please follow up with your Primary Care Physician in: within 2 weeks Please Follow Up With: [facility]ing[facility]Center When: Monday Please Follow Up With: Faisal Ramirez MD When: 1-2 weeks Patient Instructions: ED CHF General Disposition: Home Minutes spent on discharge:: 40 Patient Condition:: Stable Medical Necessity - Tobacco Use Smoking Status: Current every day smoker Tobacco Use: Cigarettes Meaningful Use Info Meaningful Use Diagnoses (Choose all that apply): CHF - CHF KENNETH/ARB ordered at discharge?: Yes Documented LVEF (%): 15 Code Visit Inpatient E AND M: [id number] Disch Hosp 03/29/18 1703 <Electronically signed by Marci Garvey MD> Date Marci Garvey MD Cosigner Signature (if applicable): Date CC: Felix Child; Marci Garvey MD; Felix Child DO Signed DISCHARGE INSTRUCTION Observed: 03/29/2018 Status: F Source: [place] 12:22 PM [facility] REPOSITORY [facility] Medical Records Department [address] [place] [address] Instructions for Home/Discharge Instructions 03/29/18 1218 MR#: [id number] Acct: [id number] Name: JEANETTE MORA Rep #: [id number] : 1975 42 From: Marci Garvey MD PCP: Felix Child Status: ADM IN You will use the following diet at home:: Cardiac Your food should be the consistency of: Regular Your liquids should be the consistency of: Regular/Thin Discharge Activity: Return to Normal Activity Instructions: ED CHF General Additional Instructions: Take note of all your medications. Continue on all your medications. Weigh yourself everyday. Let your primary care doctopr/box office clerk know if you gain more than 4 pouynds in a couple of days. Watch your fluid intake; restrict your fluids to less than 1.5L day. You will need to repeat blood work within 1 week. You are advised to quit smoking. Keep a log of your blood sugars and show them to your doctor. Allergies/Adverse Reactions: Allergies No Known Allergies Allergy (Verified 03/09/18 08:42) Medications to take at Discharge Magnesium Oxide [Mag-Ox 400] 400 mg PO DAILYCM #30 tab 08/08/16 Spironolactone [Aldactone] 25 mg PO DAILY #30 tab 08/08/16 Insulin Glargine,Hum.rec.anlog [Azebaglstacy Fam U-100] 14 unit SQ DAILY 04/09/17 alprazolam 1 mg tablet 1 mg PO PRN PRN 30 Days #60 07/12/17 hydrocodone 10 mg-acetaminophen 325 mg tablet 1 tab PO PRN PRN 30 Days #120 07/12/17 sennosides 8.6 mg tablet 8.6 mg PO BID PRN 08/11/17 Hydrocodone Bitart/Apap 5-325 [[place] 5/325] 1 tab PO Q6H PRN PRN 2 Days #6 tab 10/24/17 Aspirin E.C. [Ecotrin] 81 mg PO DAILY@0800 #30 tablet 03/29/18 Atorvastatin Calcium [Lipitor] 40 mg PO DAILY #30 tablet 03/29/18 Carvedilol 3.125 mg PO BID 30 Days #30 tab 03/29/18 Clopidogrel Bisulfate [Plavix] 75 mg PO DAILY #30 tablet 03/29/18 Furosemide [Lasix] 80 mg PO BID #60 tablet 03/29/18 Losartan Potassium [Cozaar] 100 mg PO DAILY #30 tablet 03/29/18 Potassium Chloride [Klor-Con] 20 meq PO BID #60 packet 03/29/18 Sertraline HCl [Zoloft] 1 tab PO DAILY #30 tablet 03/29/18 Spironolactone [Aldactone] 25 mg PO DAILY #30 tablet 03/29/18 The following prescriptions were given: Aspirin E.C. [Ecotrin] 81 mg PO DAILY@0800 #30 tablet Atorvastatin Calcium [Lipitor] 40 mg PO DAILY #30 tablet Clopidogrel Bisulfate [Plavix] 75 mg PO DAILY #30 tablet Losartan Potassium [Cozaar] 100 mg PO DAILY #30 tablet Sertraline HCl [Zoloft] 1 tab PO DAILY #30 tablet Spironolactone [Aldactone] 25 mg PO DAILY #30 tablet Carvedilol 3.125 mg PO BID 30 Days #30 tab Furosemide [Lasix] 80 mg PO BID #60 tablet Potassium Chloride [Klor-Con] 20 meq PO BID #60 packet Orders to be completed after discharge: Basic Metabolic Profile (BMP) Time Frame: 1 Week, Location: Laboratory Primary Care Physician: Felix Child [Primary Care Provider] - Please follow up with your Primary Care Physician in: within 2 weeks Test Results: Test results from this visit will be discussed in further detail at your follow-up appointment, if applicable. Please Follow Up With: [facility] When: Monday Please Follow Up With: Faisal Ramirez MD When: 1-2 weeks Proposed Discharge Date: 03/29/18 03/29/18 1222 <Electronically signed by Marci Garvey MD> Date Marci Garvey MD CC: Felix Child; Felix Child DO BEDSIDE GLUCOSE Collected: 03/29/2018 Status: F Source: [place] 11:26 AM [facility] REPOSITORY TYPE CODE TESTS RESULT OUT OF RANGE REFERENCE UNITS LAB L501.080 70-110 mg/dL Normal BEDSIDE GLU 77 Result Comment: MANAGEMENT OF PATIENT CARE PER NURSING PROTOCOL Performed By: #### L501.080 #### [facility] Point of Care [address] [place] [address] BEDSIDE GLUCOSE Collected: 03/29/2018 Status: F Source: [place] 6:57 AM [facility] REPOSITORY TYPE CODE TESTS RESULT OUT OF REFERENCE UNITS RANGE LAB L501.080 70-110 mg/dL High BEDSIDE GLU 350 Result Comment: MANAGEMENT OF PATIENT CARE PER NURSING PROTOCOL Performed By: #### L501.080 #### [facility] Point of Care [address] [place] [address] BEDSIDE GLUCOSE Collected: 03/28/2018 Status: F Source: [place] 9:40 PM [facility] REPOSITORY TYPE CODE TESTS RESULT OUT OF REFERENCE UNITS RANGE LAB L501.080 70-110 mg/dL High BEDSIDE GLU 186 Result Comment: MANAGEMENT OF PATIENT CARE PER NURSING PROTOCOL Performed By: #### L501.080 #### [facility] Point of Care [address] [place] [address] BEDSIDE GLUCOSE Collected: 03/28/2018 Status: F Source: [place] 4:30 PM [facility] REPOSITORY TYPE CODE TESTS RESULT OUT OF REFERENCE UNITS RANGE LAB L501.080 70-110 mg/dL High BEDSIDE GLU 289 Result Comment: MANAGEMENT OF PATIENT CARE PER NURSING PROTOCOL Performed By: #### L501.080 #### [facility] Point of Care [address] [place] [address] BEDSIDE GLUCOSE Collected: 03/28/2018 Status: F Source: [place] 11:28 AM [facility] REPOSITORY TYPE CODE TESTS RESULT OUT OF REFERENCE UNITS RANGE LAB L501.080 70-110 mg/dL High BEDSIDE GLU 209 Result Comment: MANAGEMENT OF PATIENT CARE PER NURSING PROTOCOL Performed By: #### L501.080 #### [facility] Point of Care [address] [place] [address] BEDSIDE GLUCOSE Collected: 03/28/2018 Status: F Source: [place] 6:46 AM [facility] REPOSITORY TYPE CODE TESTS RESULT OUT OF REFERENCE UNITS RANGE LAB L501.080 70-110 mg/dL High BEDSIDE GLU 240 Result Comment: MANAGEMENT OF PATIENT CARE PER NURSING PROTOCOL Performed By: #### L501.080 #### [facility] Point of Care [address] [place] [address] BASIC METABOLIC Collected: 03/28/2018 Status: F Source: [place] PROFILE (BMP) 4:15 AM [facility] REPOSITORY TYPE CODE TESTS RESULT OUT OF RANGE REFERENCE UNITS LAB L501.0100 74-106 mg/dL High GLU 179 Result Comment: Fasting Glucose result greater than or equal to 126 mg/dL suggests DIABETES MELLITUS per A.D.A. criteria. Please note revised GLUCOSE reference range effective 2017. LAB L501.1000 7-18 mg/dL Normal BUN 14 LAB L501.1100 0.70-1.30 mg/dL Normal CREAT,SERUM 0.97 Result Comment: The validity of the calculated GFR AND GFRAA in patients over 70 years has not been determined. Clinical correlation is essential. LAB L501.1110 >60 mL/min Normal EST GFR 91 Result Comment: Non- GFR Calc LAB L501.1115 >60 mL/min Normal EST GFR - AA 110 Result Comment: GFR Calc LAB L501.1255 ml/min Normal Estimated CRCL 111.11 LAB L501.1300 10-20 RATIO BUN/CRE Normal 14.4 LAB L501.2200 8.5-10 mg/dL .1 CA Normal 8.6 LAB L501.5300 136-14 mmol/L 5 NA Normal 140 LAB L501.5600 3.5-5. mmol/L 1 K Normal 3.8 Result Comment: Slight Hemolysis, Result may be falsely increased. LAB L501.5900 98-107 mmol/L Normal CL 103 LAB L501.6100 21.0-32.0 mmol/L Normal CO2 28.0 LAB L501.6200 5-15 Normal 9 GAP Performed By: #### L500.2500 #### [facility] [address] [facility] [place], [address] CHEST PA AND LATERAL Observed: 03/28/2018 Status: F Source: [place] 12:00 AM [facility] REPOSITORY [facility] Imaging Services [address] [place] [address] Chest PA and Lateral MR#: [id number] Acct: [id number] Name: JEANETTE MORA Rep #: [id number] : 1975 M 42 From: Selam Diaz MD PCP: Felix Child Status: ADM VJ Study: Chest PA and Lateral Date of Exam: 03/28/18 Exam# [id number] Ordering Dr: Felix Bobo DO STUDY: X-RAY CHEST REASON FOR EXAM: Male, 42 years old. Congestive heart failure TECHNIQUE: PA and lateral views of the chest. COMPARISON: 03/28/2018. 08/07/2016. FINDINGS: There is left lateral chest wall single chamber permanent pacemaker. There are superimposed monitor leads. There is opacification of the lung bases, small bilateral pleural effusion. There is no demonstrated pleural abnormality. There is borderline cardiac size. Normal mediastinum and kelly. Normal visualized pulmonary arteries. Normal visualized aortic arch and descending thoracic aorta. Normal visualized thoracic spine. Normal visualized ribs, clavicles, and shoulders. There is no demonstrated abnormality of the visualized soft tissue structures of the upper abdomen. RAD/Chest PA and Lateral IMPRESSION: Bilateral basilar airspace disease probably infiltrate/pneumonia with small bilateral pleural effusions. There is borderline cardiac size. Electronically Signed: Selam Diaz MD at 4:51 EST , Service support , CC: Felix Child; Felix Bobo DO Construction Superintendent: Signed URINE DRUG SCREEN Collected: 03/27/2018 Status: F Source: [place] ([place]) 11:58 PM [facility] REPOSITORY TYPE CODE TESTS RESULT OUT OF RANGE REFERENCE UNITS LAB L505.0075 TO BE Normal CONFIRMED Result Comment: CONFIRMATORY TESTING FOR ALL POSITIVE URINE DRUG SCREEN RESULTS WILL ONLY BE SENT OUT UPON PHYSICIAN ORDER. VISTA Urine Drug Screen methods provide only preliminary analytical test results. A more specific alternate chemical method must be used in order to obtain a confirmed analytical result. Gas chromatography/mass spectrometery (GC/MS) is the preferred confirmatory method. Clinical consideration and professional judgement should be applied to any drug of abuse test result, particularly when preliminary positive results are used. URINE TCA TESTING MUST BE ORDERED SEPARATELY. USE TEST MNEMONIC: [facility] LAB L505.5005 VISTA UDS PH 7 Normal LAB L505.5015 <1000 High ng/mL AMPHETAMINES POSITIVE LAB L505.5025 < 200 ng/mL BARBITIURATES Normal NEGATIVE LAB L505.5035 < 200 ng/mL BENZODIAZIPINE Normal NEGATIVE LAB L505.5045 < 300 ng/mL COCAINE Normal NEGATIVE LAB L505.5055 < 500 ng/mL ECSTACY Normal NEGATIVE LAB L505.5065 < 300 ng/mL METHADONE Normal NEGATIVE LAB L505.5075 < 300 ng/mL OPIATES Normal NEGATIVE LAB L505.5085 < 25 ng/mL PCP Normal NEGATIVE LAB L505.5095 < 50 High ng/mL THC POSITIVE Performed By: #### L505.5000 #### [facility] [address] [place], [address] BEDSIDE GLUCOSE Collected: 03/27/2018 Status: F Source: [place] 10:20 PM [facility] REPOSITORY TYPE CODE TESTS RESULT OUT OF REFERENCE UNITS RANGE LAB L501.080 70-110 mg/dL High BEDSIDE GLU 165 Result Comment: MANAGEMENT OF PATIENT CARE PER NURSING PROTOCOL Performed By: #### L501.080 #### [facility] Point of Care [address] [place] [address] BEDSIDE GLUCOSE Collected: 03/27/2018 Status: F Source: [place] 5:48 PM [facility] REPOSITORY TYPE CODE TESTS RESULT OUT OF REFERENCE UNITS RANGE LAB L501.080 70-110 mg/dL High BEDSIDE GLU 165 Result Comment: MANAGEMENT OF PATIENT CARE PER NURSING PROTOCOL Performed By: #### L501.080 #### [facility] Point of Care [address] [place] [address] ECHOCARDIOGRAM COMPLETE Observed: 03/27/2018 Status: F Source: [place] 4:24 PM [facility] REPOSITORY [facility] Cardiovascular Services [address] [place] [address] Echo Complete 03/27/18 1524 MR#: [id number] Acct: [id number] Name: JEANETTE MORA Rep #: [id number] : 1975 42 From: Boaz Cabrera MD Attending Dr: Felix Bobo DO Status: ADM VJ Ordering Dr: Payton Mora Date: 03/27/18 Location: ICU Sex: M AA Admitted: 03/27/18 Reason For Study: CHF Procedure This was a 2D Doppler, Color Flow transthoracic echocardiogram. The exam was of adequate technical quality. Exam performed portable in ICU/CCU. Left Ventricle Severely dilated left ventricle. Severe segmental systolic dysfunction (see wall motion). The estimated ejection fraction is 15 %. Diastolic function is indeterminate. Anterio-Basal: Hypokinetic. Lateral-Basal: Akinetic. Posterior-Basal: Akinetic. Infero-Basal: Severely Hypokinetic. Basal inferoseptal: Hypokinetic. Basal anteroseptal: Hypokinetic. Mid-Anterior : Akinetic. Mid- Lateral : Akinetic. Mid-Posterior: Hypokinetic. Mid-Inferior: Hypokinetic. Mid-inferoseptal : Akinetic. Mid-anteroseptal : Akinetic. [place] : Akinetic. Right Ventricle Mildly dilated right ventricle. ICD or pacer leads identified within the right ventricle. Mild global right ventricular systolic dysfunction. Atria The left atrium is severely enlarged. Normal right atrium. ICD or pacer leads identified within the right atrium. No doppler evidence for ASD. Mitral Valve There is no mitral annular calcification. Mild diffuse mitral valve thickening. Mild papillary muscle dysfunction of the mitral valve. Mild (1+) mitral valve insufficiency. Tricuspid Valve Normal tricuspid valve. Mild to moderate (1-2+) tricuspid valve insufficiency. Right ventricular systolic pressure estimated to be 73 mmHg. Aortic Valve Trisinus/trileaflet aortic valve. Mild focal aortic valve thickening. Pulmonic Valve The pulmonic valve is not well visualized. Trivial pulmonic valve insufficiency. Great Vessels Normal sized aortic root. Pericardium/Pleural No pericardial effusion. MMode/2D Measurements AND Calculations LVIDd: 6.9 cm IVSd: 1.2 cm Ao root diam: 3.1 cm LVIDs: 6.7 cm LVPWd: 0.73 cm LA dimension: 4.8 cm FS: 2.8 % LAV(MOD-bp): 143.2 ml LVAd ap4: 48.3 cm2 SV(MOD-sp4): 33.4 ml LAV(MOD-bp) Indexed: 67.7 ml/m2 EDV(MOD-sp4): 213.0 ml LAV(MOD-sp2): 175.6 ml EDV(sp4-el): 227.6 ml LAV(MOD-sp4): 116.4 ml LVAs ap4: 44.1 cm2 ESV(MOD-sp4): 179.6 ml ESV(sp4-el): 190.7 ml EF(MOD-sp4): 15.7 % EF(sp4-el): 16.2 % SV(sp4-el): 36.9 ml LA A4 area: 30.9 cm2 RA A4 area: 18.2 cm2 Time Measurements MV dec time: 0.19 sec Doppler Measurements AND Calculations MV E max marcelina: 104.8 cm/sec Ao V2 max: 81.4 cm/sec LV V1 max: 76.8 cm/sec MV A max marcelina: 26.1 cm/sec Ao max P.7 mmHg LV V1 max P.4 mmHg MV E/A: 4.0 Ao V2 mean: 56.0 cm/sec LV V1 mean P.2 mmHg Ao mean P.5 mmHg LV V1 mean: 48.5 cm/sec Ao V2 VTI: 10.1 cm LV V1 VTI: 10.4 cm PA V2 max: 65.4 cm/sec TR max marcelina: 382.0 cm/sec TR max P.4 mmHg Interpretation Summary Severely dilated left ventricle. Severe segmental systolic dysfunction (see wall motion). The estimated ejection fraction is 15 %. Mildly dilated right ventricle. Mild global right ventricular systolic dysfunction. The left atrium is severely enlarged. Mild diffuse mitral valve thickening. Mild papillary muscle dysfunction of the mitral valve. Mild (1+) mitral valve insufficiency. Mild to moderate (1-2+) tricuspid valve insufficiency. Mild focal aortic valve thickening. Trivial pulmonic valve insufficiency. Right ventricular systolic pressure estimated to be 73 mmHg c/w severe pulmonary hypertension. Diastolic function is indeterminate. ICD or pacer leads identified within the right atrium ICD or pacer leads identified within the right ventricle. Ordering Physician: GERMAINE Ramirez Referring Physician: Felix Child Performed By: George Morton RCS 03/27/18 1624 Date Boaz Cabrera MD CC: Felix Child; GERMAINE Mora; Felix Child DO; Felix Bobo DO Date Dictated: 03/27/18 1524 Date Transcribed: 03/27/181623 Construction Superintendent: Signed HISTORY AND PHYSICAL Observed: 03/27/2018 Status: F Source: [place] EXAM 4:15 PM [facility] REPOSITORY [facility] Medical Records Department [address] [place] [id number] History and Physical 03/27/18 1443 MR#: [id number] Acct: [id number] Name: JEANETTE MORA Rep #: [id number] : 1975 42 From: Payton HERRON PCP: Felix Child Status: ADM VJ Y Location: ICU [id number] ADDENDUM by Felix Bobo DO on 03/27/18 at 1615 Code Visit Patient was seen independently of Payton Mora, he came to the emergency room at [facility] with a chief complaint of increasing shortness of breath of the last several days. Patient freely admits he is noncompliant with taking his medications, he has a history of ischemic cardiomyopathy and earlier this year had an ICD placed. Patient denies any fever, chills, or chest pain. Physical exam: On examination he appeared in good health and spirits. Vital signs as documented. Skin warm and dry and without overt rashes. Neck without JVD. Lungs- scattered expiratory wheezes are noted bilaterally. Heart exam notable for regular rhythm, patient was tachycardic, normal sounds and absence of murmurs, rubs or gallops. Abdomen unremarkable and without evidence of organomegaly, masses, or abdominal aortic enlargement. Extremities nonedematous. Neuro: Cranial nerves II through XII are grossly intact, no focal motor deficits were noted, sensation to pinprick and light touch is intact. Psych: Patient is alert and oriented x3, he does not appear anxious or depressed. Workup in the emergency room included a chest x-ray which indicated the patient to have CHF, his blood pressure was elevated, CBC was unremarkable, chemistry profile was unremarkable except for a blood sugar of 175, patient's beta natruretic peptide was elevated at 362. He will be admitted to PCU for acute on chronic systolic congestive heart failure, noncompliance, hypoxia, and ischemic cardiomyopathy. Blood sugars will be monitored, he will be placed on IV Lasix and to his blood pressure medications/heart medications will be increased due to his high blood pressure. It is unknown when the last time he took his blood pressure medication-patient is vague about his compliance with his medications. I have reviewed Payton Mora's history and physical and medical plan of care and endorse both OBSV E AND M: [id number] Initial observation care L3 03/27/18 1615 <Electronically signed by Felix Bobo DO> Date Felix Bobo DO cc: Felix Child; FIELD PROFESSIONAL-C Payton Mora; Felix Child DO; Felix Bobo DO * Signed Problem List (1) Severe left ventricular systolic dysfunction Status: Chronic (2) Polysubstance abuse Status: Chronic Comment: marijuana, cocaine (3) Presence of automatic implantable cardioverter-defibrillator Status: Chronic Comment: SICD per Dr Berry @ [facility] (4) Nicotine dependence Status: Chronic (5) Old myocardial infarction Status: Chronic (6) Hypertension Status: Chronic (7) History of coronary artery stent placement Status: Chronic Comment: PCI-MEHRDAD-LAD 08/2014, DIM-JZF-Qsqe-Mid CX and Prox-Mid RCA 03/18/15, Thrombosis of CX stent 03/25/15 (8) Atherosclerosis of coronary artery of lime heart without angina pectoris Status: Chronic Comment: PCI-MEHRDAD-LAD 08/2014, DVR-PIR-Goym-Mid CX and Prox-Mid RCA 03/18/15, Thrombosis of CX stent 03/25/15 (9) Ischemic cardiomyopathy Status: Chronic Comment: EF 20% per echo 08/08/2016 (10) Hyperlipidemia Status: Chronic (11) Type 2 diabetes mellitus Status: Chronic (12) Chronic systolic CHF (congestive heart failure) Status: Chronic History of Present Illness Date of Admission: 03/27/18 Chief Complaint: Shortness of breath. The patient is a 42 year old M who presents to the Emergency Department due to shortness of breath. Patient initially signed out AMA and then returned for treatment. Patient states he has had increased shortness of breath for the past week. Denies cough, fever, chills. Denies lower extremity swelling. Denies chest pain, dizziness, lightheadedness. Patient reports shortness of breath is worse with exertion and also lying flat. His past medical history includes chronic systolic CHF/ischemic cardiomyopathy, hypertension, hyperlipidemia, type 2 diabetes mellitus, CAD status post PCI, tobacco dependence, history of polysubstance abuse, depression. Past Medical History Past Medical History (Chronic Problems): Chronic Problems (Last Reviewed 03/12/18 @ 10:47 by Savanna Dave) Severe left ventricular systolic dysfunction (Chronic) Polysubstance abuse (Chronic) marijuana, cocaine 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/28/17) SICD per Dr Berry @ [facility] Nicotine dependence (Chronic) Old myocardial infarction (Chronic) Hypertension (Chronic) History of coronary artery stent placement (Chronic) PCI-MEHRDAD-LAD 08/2014, JRD-ZZX-Zmfd-Mid CX and Prox-Mid RCA 03/18/15, Thrombosis of CX stent 03/25/15 Atherosclerosis of coronary artery of lime heart without angina pectoris (Chronic) PCI-MEHRDAD-LAD 08/2014, BTU-YYW-Eset-Mid CX and Prox-Mid RCA 03/18/15, Thrombosis of CX stent 03/25/15 Ischemic cardiomyopathy (Chronic) EF 20% per echo 08/08/2016 Hyperlipidemia (Chronic) Type 2 diabetes mellitus (Chronic) Chronic systolic CHF (congestive heart failure) (Chronic) Medical History: Medical History (Last Reviewed 03/12/18 @ 10:47 by Savanna Dave) Severe left ventricular systolic dysfunction (Chronic) I51.9 Polysubstance abuse (Chronic) F19.10 marijuana, cocaine Nicotine dependence (Chronic) F17.200 Old myocardial infarction (Chronic) I25.2 Hypertension (Chronic) I10 Atherosclerosis of coronary artery of lime heart without angina pectoris (Chronic) I25.10 PCI-MEHRDAD-LAD 08/2014, RQB-RDT-Bvyo-Mid CX and Prox-Mid RCA 03/18/15, Thrombosis of CX stent 03/25/15 Ischemic cardiomyopathy (Chronic) I25.5 EF 20% per echo 08/08/2016 Hyperlipidemia (Chronic) E78.5 Type 2 diabetes mellitus (Chronic) E11.9 Chronic systolic CHF (congestive heart failure) (Chronic) I50.22 Depression F32.9 Peripheral neuropathy G62.9 Allergies No Known Allergies Allergy (Verified 03/09/18 08:42) Home Medications: Ambulatory Orders Medication Instructions Recorded Surgical History: Surgical History (Last Reviewed 03/12/18 @ 10:47 by Savanna Dave) 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) Onset Date: 06/28/[address] Berry @ [facility] History of coronary artery stent placement (Chronic) Z95.5 PCI-MEHRDAD-LAD 08/2014, MCC-YFX-Jtzr-Mid CX and Prox-Mid RCA 03/18/15, Thrombosis of CX stent 03/25/15 History of appendectomy Z90.49 Surgical History: - - Cardiac stent August 2014 Psychiatric History: Depression Smoking Status: Current every day smoker Tobacco Use: Cigarettes Alcohol: None Drugs: - - Denies - *Family History Paternal Family History: Family History (Last Reviewed 03/27/18 @ 14:53 by GERMAINE Ramirez) Mother CAD (coronary artery disease) Diabetes Hypertension Myocardial infarction Father CAD (coronary artery disease) Diabetes Hypertension Myocardial infarction Brother Hypertension History Items: - - Denies paternal cardiac history Maternal Family History: Family History (Last Reviewed 03/27/18 @ 14:53 by GERMAINE Ramirez) Mother CAD (coronary artery disease) Diabetes Hypertension Myocardial infarction Father CAD (coronary artery disease) Diabetes Hypertension Myocardial infarction Brother Hypertension History Items: Heart Disease Review of Systems Constitutional: Denies: Chills, Fever, Weight Change HEENT: Denies: Head Aches, Sinus Congestion, Sinus Drainage Cardiovascular: Denies: Chest Pain, Edema, Light Headedness, Palpitations, Syncope Respiratory: Reports: Shortness of Breath, Wheezing. Denies: Cough, Sputum production Gastrointestinal: Denies: Abdominal Pain, Nausea, Vomiting Genitourinary: Denies: Dysuria Musculoskeletal: Denies: Joint Pain, Joint Tenderness Skin: Denies: Rash, Wounds Neurological: Denies: Numbness, Tingling, Focal weakness Psychiatric: Reports: Depression Hematologic/ Lymphatic: Denies: Easy Bruising, Easy Bleeding VTE Information - Inpt Only VTE Present on Admission: No VTE Mechan Device Prophylaxis: None VTE Pharm Prophylaxis ordered?: Yes - Physical Exam General: Alert, Oriented x3, Cooperative HEENT: Atraumatic, PERRLA, EOMI, Normocephalic Oral: Moist Mucosa Neck: Supple, No JVD, Negative Carotid Bruits Lungs: Diminished, Wheezes Cardiovascular: Regular rate, Regular Rhythm, Normal S1, Normal S2, No murmurs Abdomen: Bowel Sounds Present, Soft, Non Tender, Non-Distended Extremities: No clubbing, No cyanosis, No edema, Capillary Refill Less than 3 Seconds Skin: No rashes, No breakdown Musculoskeletal: No Tenderness to Palpation of Joints or Extremities Neurological: Cranial nerves II-XII grossly intact, Neuro grossly intact Psych/Mental Status: Normal Affect, Appropriate Vital Signs Temp Pulse Resp BP Pulse Ox 97.2 F L 106 H 20 H 137/101 H 100 03/27/18 14:01 03/27/18 14:01 03/27/18 14:01 03/27/18 14:01 03/27/18 14:01 Oxygen Flow Rate (L/min) 2 Oxygen Delivery Method Nasal Cannula Weight: 197 lb 12.074 oz Body Mass Index (BMI) 26.8 Finger Stick Blood Glucose 119 Intake and Output for Last 24 Hours Intake Total 240 / 240 Output Total 1400 / 1400 Balance -1160 / -1160 Laboratory Tests Past 24 Hrs WBC RBC Hgb Hct MCV MCH MCHC RDW RDW Differential Plt Count MPV Immature Gran % (Auto) Neut % (Auto) Lymph % (Auto) POC Glucose POC Glucose 242 H Assessment/Plan All Active Problems (Last Reviewed 03/12/18 @ 10:47 by Savanna Dave) Acute on chronic systolic CHF (congestive heart failure) (Resolved) Hypomagnesemia (Resolved) 1. Acute hypoxic respiratory insufficiency secondary to acute on chronic systolic CHF-Continue supplement oxygen to maintain O2 sat above 90%. 2. Acute on chronic systolic CHF/ischemic cardiomyopathy/s/p AICD-chest x-ray admission with mild CHF. BNP 362. Strict I AND O. Daily weight. Lasix 40 mg IV every 8. Continue losartan, Aldactone. Follows with Dr. Ramirez. Echocardiogram July 2016 with EF 20%. Repeat echocardiogram. Repeat chest x-ray in a.m. 3. CAD status post stents x5-patient denies chest pain. Continue aspirin, statin, Plavix, carvedilol. 4. Hypertension-stable, continue home carvedilol, losartan regimen. 5. Hyperlipidemia-continue statin. 6. Type 2 diabetes tfmwywqn-Ezbb-Gawhh before meals at bedtime with sliding scale insulin. 7. Tobacco dependence-encouraged tobacco cessation. 8. History of polysubstance abuse-prior tox screen August 2017 with positive cannabinoids and cocaine. 9. Depression-continue home sertraline regimen. DVT prophylaxis-heparin subcu. This patient was seen by GERMAINE Ramirez under the supervision of Dr. Bobo. 03/27/18 1507 <Electronically signed by Payton HERRON> Date Payton HERRON 03/27/18 1610<Electronically signed by Felix Bobo DO> Cosigner Signature: Date (if applicable) Felix Bobo DO CC: Felix Child; GERMAINE Mora; Felix Child DO; Felix Bobo DO Signed BEDSIDE GLUCOSE Collected: 03/27/2018 Status: F Source: [place] 10:56 AM [facility] REPOSITORY TYPE CODE TESTS RESULT OUT OF REFERENCE UNITS RANGE LAB L501.080 70-110 mg/dL High BEDSIDE GLU 242 Result Comment: MANAGEMENT OF PATIENT CARE PER NURSING PROTOCOL Performed By: #### L501.080 #### [facility] Point of Care [address] [place] [address] EMERGENCY DEPARTMENT Observed: 03/27/2018 Status: F Source: [place] SUMMARY 8:02 AM [facility] REPOSITORY [facility] Medical Records Department [address] [place] [address] Emergency Department Summary 03/27/18 0727 MR#: [id number] Acct: [id number] Name: JEANETTE MORA Rep #: [id number] : 1975 42 From: Go Mitchell MD PCP: Felix Child Status: DEP ER ADDENDUM by Go Mitchell MD on 03/27/18 at 0802 Patient did have his IV pulled and had left the department however he almost immediately returned. A new IV was established. The hospitalist has been paged for admission. 03/27/18 0802 Date Go Mitchell MD cc: Felix Child; Felix Child DO * Signed - ER Visit Summary Date of Service: 03/27/18 Chief Complaint: Shortness of breath History of Present Illness: The patient is a 42 M who presents with shortness of breath. He states that he began to feel short of breath last night. This became severe. He does report congestion rhinorrhea and cough. This is been going on for the past 2 days. He states that he just needs some breathing treatments. He denies any chest pain fever nausea vomiting. He does have a history of cardiomyopathy with an EF of 20% CHF and COPD. He has a history of multiple MIs with cardiac cath and stents. Physical Examination: Heart rate 107 respiratory rate 22 pulse ox 100% on room air blood pressure 157/113 patient is markedly diaphoretic Moist mucous membranes Heart regular rhythm tachycardia Tachypnea with bilateral rales and wheezing Abdomen soft nontender nondistended 1+ symmetric pitting lower extremity edema Alert Test Results: EKG shows sinus rhythm at a rate of 109 with a PVC. Chest x-ray shows borderline cardiac size and mild CHF. Labs notable for troponin of 0.023 which is within normal range INR 0.9. Emergency Department Course and Treatment: I explained to the patient that given his market diaphoresis and medical history I am very concerned that this may be cardiac in origin rather than pulmonary. His EKG was obtained which did not show acute ischemia. He was given a DuoNeb with improvement of symptoms and another albuterol with further improvement. However his chest x-ray does show evidence of CHF. I am concerned with his history that this may very well be cardiac in origin and recommended further evaluation. Patient states that he would be willing to stay but needs to take his niece to school. He states he will take his niece to school and then return for hospitalization. I explained that feel there are significant risks with even being out of the hospital for this amount of time including worsening of condition, acute congestive heart failure, myocardial infarction, . He vocalized understanding. He elected to leave AGAINST MEDICAL ADVICE and states that he does intend to return. Treatment Plan: [] Disposition: Left AGAINST MEDICAL ADVICE Impression: CHF This note was generated with Net[employer] dictation software. It may contain incorrect words, spelling, and punctuation that were not noted in review of the chart prior to signing ED Disposition - Plan for ED Patient: Chief Complaint: Shortness of Breath Instructions: ED CHF General Referrals: Felix Child [Primary Care Provider] - What to do if you have Problems For any increased pain, shortness of breath, bleeding, nausea or vomiting, chest pain, or any unexpected problems, contact your Primary Care Provider. Call [facility] ([phone]) or report to the closest Emergency Room. Call 911 if necessary. 03/27/18 0731 <Electronically signed by Go Mitchell MD> Date Go Mitchell MD Cosigner Signature (If Indicated): Date CC: Felix Child DO DISCHARGE INSTRUCTION Observed: 03/27/2018 Status: F Source: [place] 7:26 AM [facility] REPOSITORY [facility] Medical Records Department [address] [place] [address] Discharge Instruction 03/27/18725 MR#: [id number] Acct: [id number] Name: JEANETTE MORA Rep #: [id number] : 1975 42 From: Go Mitchell MD PCP: Felix Child Status: REG ER ED Disposition - Plan for ED Patient: Chief Complaint: Shortness of Breath Instructions: ED CHF General Referrals: Felix Child [Primary Care Provider] - What to do if you have Problems For any increased pain, shortness of breath, bleeding, nausea or vomiting, chest pain, or any unexpected problems, contact your Primary Care Provider. Call [facility] ([phone]) or report to the closest Emergency Room. Call 911 if necessary. 03/27/18725 <Electronically signed by Go Mitchell MD> Date Go Mitchell MD Cosigner Signature (If Indicated): Date CC: Felix Child DO BASIC METABOLIC Collected: 03/27/2018 Status: F Source: [place] PROFILE (BMP) 6:28 AM [facility] REPOSITORY TYPE CODE TESTS RESULT OUT OF RANGE REFERENCE UNITS LAB L501.0100 74-106 mg/dL High GLU 175 Result Comment: Fasting Glucose result greater than or equal to 126 mg/dL suggests DIABETES MELLITUS per A.D.A. criteria. Please note revised GLUCOSE reference range effective 2017. LAB L501.1000 7-18 mg/dL Normal BUN 12 LAB L501.1100 0.70-1.30 mg/dL Normal CREAT,SERUM 1.00 Result Comment: The validity of the calculated GFR AND GFRAA in patients over 70 years has not been determined. Clinical correlation is essential. LAB L501.1110 >60 mL/min Normal EST GFR 88 Result Comment: Non- GFR Calc LAB L501.1115 >60 mL/min Normal EST GFR - AA 106 Result Comment: GFR Calc LAB L501.1255 ml/min Normal Estimated CRCL 107.78 LAB L501.1300 10-20 RATIO BUN/CRE Normal 12.0 LAB L501.2200 8.5-10 mg/dL .1 CA Normal 8.5 LAB L501.5300 136-14 mmol/L 5 NA Normal 143 LAB L501.5600 3.5-5. mmol/L 1 K Normal 3.8 LAB L501.5900 98-107 mmol/L CL Normal 107 LAB L501.6100 21.0-3 mmol/L 2.0 CO2 Normal 25.0 LAB L501.6200 5-15 GAP Normal 11 Performed By: #### L500.2500, L501.4010 #### [facility] [address] [place], [address] TROPONIN-I Collected: 03/27/2018 Status: F Source: [place] 6:28 AM [facility] REPOSITORY TYPE CODE TESTS RESULT OUT OF RANGE REFERENCE UNITS LAB L501.4010 <0.045 ng/mL Normal 0.023 TROPONIN-I Result Comment: TROPONIN-I EXPECTED VALUES <0.045 Negative 0.045 - 0.590 Consistent with Cardiac Damage > OR = 0.600 Critical Value Not every elevated troponin is indicative of MS. These values should be used with clinical judgement in examining the patient's clinical picture for diagnosis. To establish a diagnosis of MS versus myocardial injury, there must be a demonstrated rise and/or fall in the troponin values, in addition to ischemic symptoms, EKG changes, new regional wall motion abnormality, and/or angiographical evidence. PLEASE NOTE: REFERENCE RANGES EDITED 17 Performed By: #### L500.2500, L501.4010 #### [facility] [address] [place], [address] CBC W/DIFF, AUTOMATED Collected: 03/27/2018 Status: F Source: [place] 6:28 AM [facility] REPOSITORY TYPE CODE TESTS RESULT OUT OF RANGE REFERENCE UNITS LAB L100.1000 4.4-11.0 K/mm3 Normal WBC 9.0 LAB L100.1200 4.6-6.2 M/mm3 Normal RBC 4.93 LAB L100.1300 13.0-16.5 g/dl Normal HGB 14.9 LAB L100.1400 40-54 % Normal HCT 44.3 LAB L100.1500 80-94 fL Normal MCV 89.9 LAB L100.1600 27.0-32.0 pg Normal MCH 30.2 LAB L100.1700 32-36 g/gl Normal MCHC 33.6 LAB L100.1810 11.6-14.6 % Normal RDW CV 13.2 LAB L100.1820 35.1-43.9 fl Normal RDW SD 43.0 LAB L100.1900 150-450 K/mm3 Normal PLT 219 LAB L100.2000 6.2-12.0 fl Normal MPV 10.5 LAB L100.2100 47-70 % Normal NEUT% 68.6 LAB L100.2200 19-41 % Normal LY% 21.1 LAB L100.2300 0-10 % Normal MONO% 5.8 LAB L100.2400 0-5 % Normal EO% 4.3 LAB L100.2500 0-1 % Normal BASO% 0.1 LAB L100.2550 0.0-0.9 % Normal IM GRAN % 0.100 Result Comment: IG% - Immature Granulocytes (promyelocytes, myelocytes and metamyelocytes) > 1% indicates that a LEFT SHIFT is Present. LAB L100.2620 2.0-7.7 X10 3/uL Normal Absolute Neut 6.2 LAB L100.2720 0.83-4.51 X10 3/ul Normal Absolute Lymph 1.90 Performed By: #### L100.0100 #### [facility] [address] [place], [place], [address] PROTHROMBIN TIME W/INR Collected: 03/27/2018 Status: F Source: [place] 6:28 AM [facility] REPOSITORY TYPE CODE TESTS RESULT OUT OF RANGE REFERENCE UNITS LAB L300.4150 11.7-14.9 SECONDS Normal PROTIME 12.5 LAB L300.4200 Normal INR 0.9 Performed By: #### L300.3900 #### [facility] [address] [place], [address] BNP,B-TYPE NATRIURETIC Collected: 03/27/2018 Status: F Source: [place] PEPTIDE 6:28 AM [facility] REPOSITORY Order Comment: DELAY IN TESTING DUE TO INSTRUMENT MAINTENANCE. BERNICE IN ED NOTIFIED 0714 BY JAIMIE TYPE CODE TESTS RESULT OUT OF RANGE REFERENCE UNITS LAB L503.6620 0-100 pg/mL High B-TYPE 362.7 ROXANNE PEP Performed By: #### L503.6620 #### [facility] [address] [place], [address] CHEST 1 VIEW Observed: 03/27/2018 Status: F Source: [place] (PORTABLE) 6:21 AM [facility] REPOSITORY [facility] Imaging Services [address] [place] [address] Chest 1 View (Portable) MR#: [id number] Acct: [id number] Name: JEANETTE MORA Rep #: [id number] : 1975 M 42 From: Selam Diaz MD PCP: Felix Child Status: REG ER Study: Chest 1 View (Portable) Date of Exam: 03/27/18 Exam# [id number] Ordering Dr: Go Mitchell MD STUDY: X-RAY CHEST REASON FOR EXAM: Male, 42 years old. Shortness of breath, wheezing, history of asthma TECHNIQUE: Single AP portable view of the chest. COMPARISON: 08/07/2016. 03/24/2015. FINDINGS: Left lateral chest wall pacer-like device over the right cardiac contour. There are superimposed monitor leads. There is mild bronchovascular prominence increased since previous examination. Blunting of the bilateral costophrenic angles. Borderline cardiac size, not significantly changed since 2016, increased since 2014. Normal mediastinum and kelly. Normal visualized pulmonary arteries. Normal visualized aortic arch and descending thoracic aorta. Normal visualized thoracic spine. Normal visualized ribs, clavicles, and shoulders. There is no demonstrated abnormality of the visualized soft tissue structures of the upper abdomen. RAD/Chest 1 View (Portable) IMPRESSION: There is borderline cardiac size and mild congestive heart failure. Electronically Signed: Selam Diaz MD at 7:13 EST , Service support , CC: Felix Child; Go Mitchell MD Construction Superintendent: Signed EMERGENCY DEPARTMENT Observed: 10/24/2017 Status: F Source: [place] SUMMARY 5:30 PM [facility] REPOSITORY [facility] Medical Records Department [address] [place] [address] Emergency Department Summary 10/24/17 0905 MR#: [id number] Acct: [id number] Name: JEANETTE MORA Rep #: [id number] : 1975 42 From: Annette Walker MD PCP: Felix Child Status: DEP ER - ER Visit Summary Date of Service: 10/24/17 Chief Complaint: Dental pain History of Present Illness: The patient is a 42 M presenting with dental pain. He states his filling fell out of this tooth. He started having increasing pain last night. He has been taking Tylenol and Vicodin at home. He has now run out of the Vicodin. He had an antibiotic over a month ago for this. He then went to senior living and was unable to follow-up with the dentist. Denies fever swelling or other complaints. Physical Examination: Vitals are stable. Patient is afebrile. Alert no acute distress. HEENT exam right lower molar decay, no surrounding fluctuance. No sublingual edema Neck is supple. Lungs are clear and equal bilaterally. Heart is regular rate and rhythm. Abdomen is soft nontender nondistended. Extremities are unremarkable. Skin is warm and dry. Remainder of exam is unremarkable. Emergency Department Course and Treatment: Patient is given [place] x1, penicillin. He is advised to follow-up with dentist. He is given a dental referral list. Advised return to ED for any worsening complaints. Disposition: Discharge home Impression: Odontalgia This note was generated with Netrounds dictation software. It may contain incorrect words, spelling, and punctuation that were not noted in review of the chart prior to signing ED Disposition - Plan for ED Patient: Chief Complaint: Dental Referrals: Felix Child [Primary Care Provider] - What to do if you have Problems For any increased pain, shortness of breath, bleeding, nausea or vomiting, chest pain, or any unexpected problems, contact your Primary Care Provider. Call [facility] ([phone]) or report to the closest Emergency Room. Call 911 if necessary. 10/24/17 1730 <Electronically signed by Annette Walker MD> Date Annette Walker MD Cosigner Signature (If Indicated): Date CC: Felix Child; Felix Child DO DISCHARGE INSTRUCTION Observed: 10/24/2017 Status: F Source: [place] 9:09 AM [facility] REPOSITORY [facility] Medical Records Department [address] [place] [address] Discharge Instruction 10/24/17 0908 MR#: [id number] Acct: [id number] Name: JEANETTE MORA Eusebia Rep #: [id number] : 1975 42 From: Annette Walker MD PCP: Felix Child Status: REG ER ED Disposition - Plan for ED Patient: Chief Complaint: Dental Instructions: ED Tooth Pain Prescriptions: Hydrocodone Bitart/Apap 5-325 [[place] 5MG-325MG] 1 tablet PO Q6H PRN PRN 2 Days #6 tablet PRN Reason: Pain Penicillin V Potassium 500 mg PO 4X/DAY #40 tablet Referrals: Felix Child [Primary Care Provider] - What to do if you have Problems For any increased pain, shortness of breath, bleeding, nausea or vomiting, chest pain, or any unexpected problems, contact your Primary Care Provider. Call [facility] ([phone]) or report to the closest Emergency Room. Call 911 if necessary. 10/24/17 0909 <Electronically signed by Annette Walker MD> Date Annette Walker MD Cosigner Signature (If Indicated): Date CC: Felix Child; Felix Child DO CBC W/DIFF, AUTOMATED Collected: 10/13/2017 Status: F Source: [place] 8:50 AM [facility] REPOSITORY TYPE CODE TESTS RESULT OUT OF RANGE REFERENCE UNITS LAB L100.1000 4.4-11.0 K/mm3 Normal WBC 8.0 LAB L100.1200 4.6-6.2 M/mm3 Normal RBC 4.86 LAB L100.1300 13.0-16.5 g/dl Normal HGB 15.2 LAB L100.1400 40-54 % Normal HCT 42.8 LAB L100.1500 80-94 fL Normal MCV 88.1 LAB L100.1600 27.0-32.0 pg Normal MCH 31.3 LAB L100.1700 32-36 g/gl Normal MCHC 35.5 LAB L100.1810 11.6-14.6 % Low RDW CV 11.5 LAB L100.1820 35.1-43.9 fl Normal RDW SD 36.7 LAB L100.1900 150-450 K/mm3 Normal PLT 182 LAB L100.2000 6.2-12.0 fl Normal MPV 10.4 LAB L100.2100 47-70 % Normal NEUT% 57.2 LAB L100.2200 19-41 % Normal LY% 27.9 LAB L100.2300 0-10 % Normal MONO% 7.9 LAB L100.2400 0-5 % High EO% 6.7 LAB L100.2500 0-1 % Normal BASO% 0.3 LAB L100.2550 0.0-0.9 % Normal IM GRAN % 0.000 Result Comment: IG% - Immature Granulocytes (promyelocytes, myelocytes and metamyelocytes) > 1% indicates that a LEFT SHIFT is Present. LAB L100.2620 2.0-7.7 X10 3/uL Normal Absolute Neut 4.6 LAB L100.2720 0.83-4.51 X10 3/ul Normal Absolute Lymph 2.22 Performed By: #### L100.0100 #### [facility] [address] [place], [address] MICROALB:CREAT Collected: 10/13/2017 Status: F Source: [place] RATIO,RANDOM UR 8:50 AM [facility] REPOSITORY TYPE CODE TESTS RESULT OUT OF RANGE REFERENCE UNITS LAB L501.1200 NO RANGE EST. mg/dL Normal UR CREAT 96.70 LAB L502.0500 NO RANGE EST. mg/L Normal 7.3 MICROALBUMIN ,UR LAB L502.0600 <30 mg/g CRE mg/g CRE Normal 7.6 MALB:CREAT Performed By: #### L502.0250 #### [facility] [address] [place], [address] HEMOGLOBIN A1C Collected: 10/13/2017 Status: F Source: [place] 8:50 AM [facility] REPOSITORY TYPE CODE TESTS RESULT OUT OF RANGE REFERENCE UNITS LAB L501.9985 4.2-6.3 % High HGB A1C 7.5 Performed By: #### L501.9985 #### [facility] [address] [place], [address] COMPREHENSIVE METABOLIC Collected: 10/13/2017 Status: F Source: [place] PROFIL 8:50 AM [facility] REPOSITORY TYPE CODE TESTS RESULT OUT OF RANGE REFERENCE UNITS LAB L501.0100 74-106 mg/dL High GLU 115 Result Comment: Fasting Glucose result from 100 to 125 mg/dL suggests IMPAIRED HOMEOSTASIS per A.D.A. criteria. Please note revised GLUCOSE reference range effective 2017. LAB L501.1000 7-18 mg/dL Normal BUN 9 LAB L501.1100 0.70-1.30 mg/dL Normal CREAT,SERUM 0.85 Result Comment: The validity of the calculated GFR AND GFRAA in patients over 70 years has not been determined. Clinical correlation is essential. LAB L501.1110 >60 mL/min Normal EST GFR 107 Result Comment: Non- GFR Calc LAB L501.1115 >60 mL/min Normal EST GFR - AA 129 Result Comment: GFR Calc LAB L501.1300 10-20 RATIO Normal BUN/CRE 10.6 LAB L501.1500 6.4-8.2 g/dL T Normal PROT 7.6 LAB L501.1800 3.2-5.0 g/dL Normal ALB 3.9 LAB L501.1950 2.2-4.2 g/dL Normal GLOB 3.7 LAB L501.2000 0.9-2.4 RATIO Normal A/G 1.1 LAB L501.2200 8.5-10.1 mg/dL CA Normal 8.6 LAB L501.4100 15-37 U/L Normal AST 21 LAB L501.4305 45-117 U/L Normal ALK P 79 LAB L501.4405 16-61 U/L Normal ALT 51 LAB L501.4600 0.20-1.00 mg/dL T Normal BILI 0.40 LAB L501.5300 136-145 mmol/L NA Normal 140 LAB L501.5600 3.5-5.1 mmol/L K Normal 3.9 LAB L501.5900 98-107 mmol/L CL Normal 104 LAB L501.6100 21.0-32.0 mmol/L Normal CO2 30.0 LAB L501.6200 5-15 Normal GAP 6 Performed By: #### L500.4050, L500.4100 #### [facility] [address] [place], [place], [address] LIPID PROFILE Collected: 10/13/2017 Status: F Source: [place] 8:50 AM [facility] REPOSITORY TYPE CODE TESTS RESULT OUT OF RANGE REFERENCE UNITS LAB L501.4900 200 mg/dL Normal CHOL 90 Result Comment: <200 mg/dL Desirable 200-240 mg/dL Borderline >240 mg/dL High Risk LAB L501.5000 mg/dL Normal TRIG 58 Result Comment: The drugs N-Acetylcysteine and Metamizole may falsely depress this assay. Serum Triglycerides Reference Interval Normal <150 mg/dL Borderline high 150 - 199 mg/dL High 200 - 499 mg/dL Very High > or = 500 mg/dL LAB L501.6400 mg/dL Normal HDL 51 Result Comment: The drugs N-Acetylcysteine and Metamizole may falsely depress this assay. Reference Range HDL <40 mg/dL Low HDL Cholesterol HDL >or= 60 mg/dL High HDL Cholesterol LAB L501.6500 0-130 mg/dL Normal LDL 27 LAB L501.6600 5-40 mg/dL Normal VLDL 12 Performed By: #### L500.4050, L500.4100 #### [facility] [address] [place], [address] 12 LEAD ELECTROCARDIOGRAM Observed: 09/01/2017 Status: F Source: [place] 3:34 PM [facility] REPOSITORY [facility] Cardiovascular Services [address] [place] [address] 12 Lead EKG 08/30/17 0416 MR#: [id number] Acct: [id number] Name: JEANETTE MORA Rep #: [id number] : 1975 41 From: Prosper Kumar MD Attending Dr: Status: DEP ER Ordering Dr: Jesus Jernigan MD Date: 08/30/17 Location: ED Sex: M AA Admitted: Test Reason : Blood Pressure : / mmHG Vent. Rate : 079 BPM Atrial Rate : 079 BPM P-R Int : 158 ms QRS Dur : 102 ms QT Int : 406 ms P-R-T Axes : 070 -58 084 degrees QTc Int : 465 ms Sinus rhythm with frequent Premature ventricular complexes Left anterior fascicular block Anteroseptal infarct , age undetermined Abnormal ECG Confirmed by PROSPER KUMAR MD ([id number]), newspaper or periodical editor EDELMIRA RIVAS ([id number]) on 09/01/2017 3:33:29 PM Referred By: WAYNE Confirmed By:PROSPER KUMAR MD 09/01/17 1533 Date Prosper Kumar MD CC: Felix Child; Felix Child DO; Jesus Jernigan Signed EMERGENCY DEPARTMENT Observed: 08/30/2017 Status: F Source: [place] SUMMARY 6:50 AM [facility] REPOSITORY [facility] Medical Records Department [address] [place] [address] Emergency Department Summary 08/30/17 0505 MR#: [id number] Acct: [id number] Name: JEANETTE MORA Rep #: [id number] : 1975 41 From: Jesus Jernigan MD PCP: Felix Child Status: DEP ER - ER Visit Summary Date of Service: 08/30/17 Chief Complaint: I want to get the drugs out of me History of Present Illness: The patient is a 41 M presenting for evaluation secondary to drug use. Patient apparently got into a verbal dispute with his girlfriend this evening. Girlfriend states that the patient took a handful of pills in an attempt to hurt himself. Patient however states that he took the handful of pills placed them in his mouth, and immediately spit them out. States that he did not swallow them. He denies being suicidal or homicidal or hallucinating. Patient simply states that he would like to get the drugs out of his system. He states that he has been using cocaine and marijuana today. He denies that he is having any sort of chest pain. Patient does have an underlying history of coronary artery disease, stenting 5, congestive heart failure due to ischemic cardiomyopathy and ICD placement in June. Physical Examination: Vital signs are within normal limits, patient is afebrile. General: Patient is well-nourished well-developed and in no acute distress. Head: Normocephalic, atraumatic Eyes: Pupils equal round and reactive bilaterally, extra occular motion intact bialterally ENT: Moist mucous membranes Neck: Supple, no lymphadenopathy, no JVD, no meningismus CVS: Heart regular rate and rhythm, no murmurs, rubs or gallops, radial pulses 2+ bilaterally Resp: Respirations nondistressed, lung sounds clear bilaterally, ICD is palpable in the patient's left chest Abdomen: Soft, nontender, nondistended, no palpable masses, normal bowel sounds Back: Nontender Extremities: Nontender, atraumatic, active full range of motion, no peripheral edema Skin: warm, no rashes, no petechia Neuro: Alert and oriented x 4, CN 2-12 intact, no lateralizing neurological defecits Psyc: Normal affect, no suicidal or homicidal ideation, no hallucinations, good insight and good judgment Test Results: EKG demonstrates a sinus rhythm with PVCs with a ventricular rate of 79. There is left anterior fascicular block that appears to be old, no evidence of acute ST segment changes or T-wave changes, old anteroseptal Q waves are noted unchanged from prior EKG. CBC, CMP, troponin negative. Ethanol negative. Toxicology screen was positive for cocaine and marijuana. Emergency Department Course and Treatment: Patient presented secondary to drug use. Patient was worked up given his history of ischemic cardiomyopathy. He has no evidence of elevated troponin or ischemic changes on EKG. He did have evidence of drugs in his system. He was sleeping on repeat evaluation at 550. I believe he safely can be discharged. At this time he exhibits no concern for self-harm. Patient will follow-up as needed. Disposition: Discharge Impression: 1. Polysubstance abuse This note was generated with Netrounds dictation software. It may contain incorrect words, spelling, and punctuation that were not noted in review of the chart prior to signing ED Disposition - Plan for ED Patient: Disposition: Home or Assisted Living Chief Complaint: Overdose Diagnosis: Polysubstance abuse Instructions: ED Drug Abuse General Referrals: Felix Child [Primary Care Provider] - As Needed What to do if you have Problems For any increased pain, shortness of breath, bleeding, nausea or vomiting, chest pain, or any unexpected problems, contact your Primary Care Provider. Call [facility] ([phone]) or report to the closest Emergency Room. Call 911 if necessary. 08/30/17 0650 <Electronically signed by Jesus Jernigan MD> Date Jesus Jernigan MD Cosigner Signature (If Indicated): Date CC: Felix Child; Felix Child DO URINE DRUG SCREEN Collected: 08/30/2017 Status: F Source: [place] (VISTA) 5:13 AM [facility] REPOSITORY TYPE CODE TESTS RESULT OUT OF RANGE REFERENCE UNITS LAB L505.0075 TO BE Normal CONFIRMED Result Comment: CONFIRMATORY TESTING FOR ALL POSITIVE URINE DRUG SCREEN RESULTS WILL ONLY BE SENT OUT UPON PHYSICIAN ORDER. VISTA Urine Drug Screen methods provide only preliminary analytical test results. A more specific alternate chemical method must be used in order to obtain a confirmed analytical result. Gas chromatography/mass spectrometery (GC/MS) is the preferred confirmatory method. Clinical consideration and professional judgement should be applied to any drug of abuse test result, particularly when preliminary positive results are used. URINE TCA TESTING MUST BE ORDERED SEPARATELY. USE TEST MNEMONIC: [facility] LAB L505.5005 VISTA UDS PH 5 Normal LAB L505.5015 <1000 ng/mL AMPHETAMINES Normal NEGATIVE LAB L505.5025 < 200 ng/mL BARBITIURATES Normal NEGATIVE LAB L505.5035 < 200 ng/mL BENZODIAZIPINE Normal NEGATIVE LAB L505.5045 < 300 High ng/mL COCAINE POSITIVE LAB L505.5055 < 500 ng/mL ECSTACY Normal NEGATIVE LAB L505.5065 < 300 ng/mL METHADONE Normal NEGATIVE LAB L505.5075 < 300 ng/mL OPIATES Normal NEGATIVE LAB L505.5085 < 25 ng/mL PCP Normal NEGATIVE LAB L505.5095 < 50 High ng/mL THC POSITIVE Performed By: #### L505.5000 #### [facility] [address] [place], [address] CBC W/DIFF, AUTOMATED Collected: 08/30/2017 Status: F Source: [place] 4:25 AM [facility] REPOSITORY TYPE CODE TESTS RESULT OUT OF RANGE REFERENCE UNITS LAB L100.1000 4.4-11.0 K/mm3 Normal WBC 9.8 LAB L100.1200 4.6-6.2 M/mm3 Normal RBC 4.68 LAB L100.1300 13.0-16.5 g/dl Normal HGB 15.1 LAB L100.1400 40-54 % Normal HCT 42.6 LAB L100.1500 80-94 fL Normal MCV 91.0 LAB L100.1600 27.0-32.0 pg High MCH 32.3 LAB L100.1700 32-36 g/gl Normal MCHC 35.4 LAB L100.1810 11.6-14.6 % Normal RDW CV 12.3 LAB L100.1820 35.1-43.9 fl Normal RDW SD 40.4 LAB L100.1900 150-450 K/mm3 Normal PLT 179 LAB L100.2000 6.2-12.0 fl Normal MPV 9.9 LAB L100.2100 47-70 % Normal NEUT% 63.0 LAB L100.2200 19-41 % Normal LY% 27.3 LAB L100.2300 0-10 % Normal MONO% 7.4 LAB L100.2400 0-5 % Normal EO% 2.0 LAB L100.2500 0-1 % Normal BASO% 0.2 LAB L100.2550 0.0-0.9 % Normal IM GRAN % 0.100 Result Comment: IG% - Immature Granulocytes (promyelocytes, myelocytes and metamyelocytes) > 1% indicates that a LEFT SHIFT is Present. LAB L100.2620 2.0-7.7 X10 3/uL Normal Absolute Neut 6.2 LAB L100.2720 0.83-4.51 X10 3/ul Normal Absolute Lymph 2.68 Performed By: #### L100.0100 #### [facility] [address] [place], [place], [address] COMPREHENSIVE METABOLIC Collected: 08/30/2017 Status: F [facility] REPOSITORY Order Comment: 'TROP' Serial specimen #1, #2, #3, or #4: 1 TYPE CODE TESTS RESULT OUT OF RANGE REFERENCE UNITS LAB L501.0100 74-106 mg/dL Normal GLU 86 Result Comment: Please note revised GLUCOSE reference range effective 2017. LAB L501.1000 7-18 mg/dL Normal BUN 12 LAB L501.1100 0.70-1.30 mg/dL Normal CREAT,SERUM 0.88 Result Comment: The validity of the calculated GFR AND GFRAA in patients over 70 years has not been determined. Clinical correlation is essential. LAB L501.1110 >60 mL/min Normal EST GFR 101 Result Comment: Non- GFR Calc LAB L501.1115 >60 mL/min Normal EST GFR - AA 123 Result Comment: GFR Calc LAB L501.1255 ml/min Normal Estimated CRCL 123.70 LAB L501.1300 10-20 RATIO BUN/CRE Normal 13.6 LAB L501.1500 6.4-8. g/dL 2 T PROT Normal 7.0 LAB L501.1800 3.2-5. g/dL 0 ALB Normal 3.7 LAB L501.1950 2.2-4. g/dL 2 GLOB Normal 3.3 LAB L501.2000 0.9-2. RATIO 4 A/G Normal 1.1 LAB L501.2200 8.5-10 mg/dL .1 CA Normal 8.6 LAB L501.4100 15-37 U/L AST Normal 30 LAB L501.4305 45-117 U/L ALK P Normal 67 LAB L501.4405 16-61 U/L ALT Normal 30 LAB L501.4600 0.20-1 mg/dL .00 T BILI Normal 0.90 LAB L501.5300 136-14 mmol/L 5 NA Normal 140 LAB L501.5600 3.5-5. mmol/L 1 K Normal 3.6 LAB L501.5900 98-107 mmol/L High CL 108 LAB L501.6100 21.0-3 mmol/L 2.0 CO2 Normal 26.0 LAB L501.6200 5-15 GAP Normal 6 Performed By: #### L500.4050, L501.4010 #### [facility] [address], [place], [address] TROPONIN-I Collected: 08/30/2017 Status: F Source: [place] 4:25 AM [facility] REPOSITORY Order Comment: 'TROP' Serial specimen #1, #2, #3, or #4: 1 TYPE CODE TESTS RESULT OUT OF RANGE REFERENCE UNITS LAB L501.4010 <0.06 ng/mL Normal 0.05 TROPONIN-I Result Comment: TROPONIN-I EXPECTED VALUES <0.05 NEGATIVE 0.06 - 0.59 AT RISK OF MS > OR = 0.60 SUGGEST MS Performed By: #### L500.4050, L501.4010 #### [facility] [address], [place], [id number] ALCOHOL, BLOOD Collected: 08/30/2017 Status: F Source: [place] (MEDICAL)-SERUM 4:25 AM [facility] REPOSITORY TYPE CODE TESTS RESULT OUT OF RANGE REFERENCE UNITS LAB L501.9100 mg/dL Normal SERUM 4.0 ETOH Result Comment: The serum:whole blood ethanol ratio is approximately 1.14 and varies slightly with hematocrit. Medical Alcohol reference interval and critical value in non-tolerant individuals; 50 - 100 Impairment 100 Intoxication 100 - 250 Severe Poisoning 250 - 400 Deep/possible fatal coma Performed By: #### L501.9100 #### [facility] [address] [place], [address] CARDIOLOGY VISIT Observed: 08/11/2017 Status: F Source: [place] REPORT 12:12 PM [facility] REPOSITORY [facility] [address] [place] [address] OFFICE VISIT Date of Service: 08/11/17 MR#: [id number] Acct: [id number] Name: JEANETTE MORA Rep #: [id number] : 1975 Provider: Faisal Ramirez MD Age/Sex: 41/M Location[place] [facility] [place]: Signed HPI HPI Chief Complaint: Routine follow-up Details: JEANETTE MORA, is a 41 M who presents to the office today for routine follow-up for his cardiomyopathy. His 32-year-old -[place] with hypertension, diabetes, hypercholesterolemia, former smoker of 2-3 packs per day for the past 20 years, quit smoking about 1 month ago. He recently relocated from [place] and apparently was diagnosed with ischemic cardiomyopathy at that time. More specifically the patient was admitted in [place] around 2013 or 2014 with substernal chest pain and a myocardial infarction and apparently underwent angioplasty and stenting 5 at that time. He was diagnosed with congestive heart failure and has been admitted several times with congestive heart failure in the past. He also has a history of cocaine abuse his last use being about 2 months ago. He denies any IV drug use. Patient recently relocated here and has seen Dr. Child in the office for medical management and was referred to our office for further cardiac care. We saw the patient we reduced his Coreg and begin IV diuretic therapy. A 2D echo with Doppler demonstrated In addition he underwent a noninvasive nuclear stress test which showed an EF of 23%, and extensive inferior and apical infarction. Most recently on 06/28/17 the patient underwent subcutaneous ICD placement by Dr. Persaud at [facility]. He is now here in follow up. He denies any chest pain, angina, different relator discharges, shortness of breath except for walking up stairs, lower extremity edema, presyncope or syncope. He is taking and tolerating his medicines well. He is adherent to his salt water restrictions. In our office today's blood pressure is 120/70, pulse is 78 and regular. His physical exam is as below. His subcutaneous pacer pocket and track are clean/dry/intact without evidence of thrills, bruits, infection, or tenderness. Lipids are pending. Intake Vital Signs08/11/17 Height 6 ft 08/11/17 Weight: 191 lb 08/11/17 Body Mass Index (BMI) 25.9 08/11/17 Blood Pressure 120/70 08/11/17 Respiratory Rate 20 08/11/17 Pulse Rate 78 Intake Visit Reasons: 6 M FU Allergies No Known Allergies Allergy (Verified 04/09/17 05:58) Medications Aspirin E.C. [Ecotrin] 81 mg PO DAILY@0800 12/05/14 [History Confirmed 08/11/17] Clopidogrel Bisulfate [Plavix] 75 mg PO DAILY #0 03/26/15 [Rx Confirmed 08/11/17] Atorvastatin Calcium [Lipitor] 40 mg PO DAILY 08/07/16 [History Confirmed 08/11/17] Losartan Potassium [Cozaar] 25 mg PO DAILY #30 tab 08/08/16 [Rx Confirmed 08/11/17] Magnesium Oxide [Mag-Ox 400] 400 mg PO DAILYCM #30 tab 08/08/16 [Rx Confirmed 08/11/17] Potassium Chloride [K-Dur] 10 meq PO DAILY #30 tab 08/08/16 [Rx Confirmed 08/11/17] Spironolactone [Aldactone] 25 mg PO DAILY #30 tab 08/08/16 [Rx Confirmed 08/11/17] Insulin Glargine,Hum.rec.anlog [Basaglar Kwikpen U-100] 14 unit SQ DAILY 04/09/17 [History Confirmed 08/11/17] Sertraline HCl [Zoloft] 1 tab PO DAILY 04/09/17 [History Confirmed 08/11/17] alprazolam 1 mg tablet PO 30 Days #60 07/12/17 [History Confirmed 08/11/17] carvedilol 6.25 mg tablet 3.125 mg PO BID 30 Days #30 tab 07/12/17 [History Confirmed 08/11/17] furosemide 40 mg tablet 40 mg PO BID tab 07/12/17 [History Confirmed 08/11/17] hydrocodone 10 mg-acetaminophen 325 mg tablet PO 30 Days #120 07/12/17 [History Confirmed 08/11/17] sennosides 8.6 mg tablet 8.6 mg PO BID PRN 08/11/17 [History Confirmed 08/11/17] [facility] Medical History Severe left ventricular systolic dysfunction (Chronic) Polysubstance abuse (Chronic) Nicotine dependence (Chronic) Old myocardial infarction (Chronic) Hypertension (Chronic) Atherosclerosis of coronary artery of lime heart without angina pectoris (Chronic) Ischemic cardiomyopathy (Chronic) Hyperlipidemia (Chronic) Type 2 diabetes mellitus (Chronic) Chronic systolic CHF (congestive heart failure) (Chronic) Depression (Chronic) Peripheral neuropathy (Chronic) Surgical History Presence of automatic implantable cardioverter-defibrillator (Acute 06/28/17) History of coronary artery stent placement (Chronic) History of appendectomy (Chronic) Family History Mother CAD (coronary artery disease) Diabetes Hypertension Myocardial infarction Father CAD (coronary artery disease) Diabetes Hypertension Myocardial infarction Brother Hypertension Social History Smoking Status: Current every day smoker alcohol intake: current substance use type: marijuana, crack/cocaine ROS Const Const: Negative for fatigue, weakness, difficulty sleeping, frequent falls, headache(s) or excessive sweating Eyes Eyes: Negative for loss of peripheral vision, transient loss of vision, blurry vision or double vision ENT ENT: Negative for headache(s), dizziness, Nosebleed/epistaxis or balance problems Cardio Chest Pain: No Edema: None Muscle aches with walking: None Resp Respiratory: Negative for SOB with activity, SOB at rest, SOB orthopnea\SOB lying down or paroxysmal nocturnal dyspnea GI GI: Negative nausea or heartburn : Negative for hematuria Musc Musc: Negative for muscle aches/ myalgia, muscle weakness, joint pain or balance problems Skin Skin: Negative non-healing lesions, unusual bruising or rash Neuro Neuro: Negative for weakness, frequent falls, blurry vision, headache(s), dizziness, lightheadedness, orthostatic symptoms or double vision Valentino Hematologic/Lymphatic: Negative for easy bruising Endo Endo: Negative for fatigue, excessive sweating or increased thirst/drinking Psych Psych: Negative for anxiety or depression Allergy Allergy/Immunology: Negative for hives, Negative for rash Cardiology Exam Const Appearance: cooperative, healthy appearing and no acute distress Nutritional Appearance: well nourished Orientation: alert, oriented x3 and oriented to person Head Head: normal to inspection, atraumatic and normocephalic Nose: external nose normal Face and Sinus: face symmetric Mouth: oral mucosae normal Eyes General: appearance normal, both eyes and all related structures Eyelids: eyelids normal Conjunctivae: conjunctivae normal Pupils: PERRL and normal by confrontation EOM: EOM intact bilaterally Neck Neck: normal visual inspection and full ROM Carotids: normal carotid upstroke Chest Chest inspection: normal inspection of the chest Auscultation: Bilateral: Clear to Auscultation Cardio Palpation: normal PMI Rate: regular rate Rhythm: regular rhythm Heart sounds: S1 normal and S2 normal GI GI: normal to inspection, no hepatosplenomegaly and bowel sounds present Neuro General: alert, oriented x3, awake, CN's II-XI intact bilaterally and moves all extremities Skin Skin: no rashes or lesions noted Extremities Pulses: Normal: Right Femoral Pulse, Left Femoral Pulse, Right Dorsalis Pedis Pulse, Left Dorsalis Pedis Pulse, Right Posterior Tibial Pulse, Left Posterior Tibial Pulse, Right Radial Pulse, Left Radial Pulse Lower Extremity Edema: None: Bilateral Psych Psychological: normal affect Assessment AND Plan 1. Ischemic cardiomyopathy I25.5 Plan 1. Ischemic cardiomyopathy: The patient is doing quite well on current medical therapy. He is Russell heart classification 2 at this time. He is status post subcutaneous AICD for primary prophylaxis. He is no longer using cocaine, he is taking and tolerating his medicines well and adhering to his salt and water restrictions. I recommended that he continue his baby aspirin, Coreg, Plavix, Lasix and losartan. His most recent stress test was positive for extensive inferior infarct, no repeat catheterization needed at this time. 2. Hyperlipidemia E78.5 Plan 2. Hyperlipidemia: We are awaiting a repeat lipid profile. Continue Lipitor. 3. Return office in 6 months. This note was generated using a voice recognition system and there may be incorrect words, spelling or punctuation that were not noted when reviewing the office note prior to saving. Orders Orders: Plan Detail Other Medications New: Discontinued: Follow Up +6m (James) Coding Level of Care Code Off vis,est,level 3 Diagnoses Ischemic cardiomyopathy I25.5 Hyperlipidemia E78.5 Coding Level of Care Code Off vis,est,level 3 Diagnoses Ischemic cardiomyopathy I25.5 Hyperlipidemia E78.5 08/11/17 1212 <Electronically signed by Faisal Ramirez MD> Date Faisal Ramirez MD Cosigner Signature: Date (if applicable) CC: EP PROCEDURE - Observed: 06/29/2017 Status: F Source: [facility] EPS/ABLATION/DEVICE 2:38 PM [facility] REPOSITORY ? Successful S-ICD Implant The pt has a severe irreversible cardiomyopathy despite optimal medical therapy and is at high risk for malignant ventricular arrhythmias. The ejection fraction is 20 % and the NYHA Class is III. Kvng kerns is here for subcutaneous ICD implantation as primary prevention. SQ ICD incision made along left anterior axillary line. Second incision was made at base of sternum and the lead was sutured in place after it was tunneled superiorly to the base of the sternal notch. Conclusion: 1. Successful implant of a subcutaneous ICD 2. 3 out of 3 sensing vectors were measured as adequate 3. VF induced via SQ ICD with 50Hz pacing 4. Device tested with sensing in 1 vector and successful conversion of VF to SR with a first shock of 65J Recommendations: 1. Routine post-procedure care 2. Chest X-ray 3. Device interrogation in the morning. 4. Remove outer dressing after 48 hours. Leave steri-strips intact for 10-14 days, then remove if they do not fall off on their own 5. Device follow up as scheduled with [facility] Ross CBC,PLATELET,DIFFERENTIAL - CCL Collected: Status: X Source: [facility] 06/29/2017 5:00 AM [facility] REPOSITORY TYPE CODE TESTS RESULT OUT OF REFERENCE UNITS RANGE LAB CBCDFC This CBC,PLATELET result has ,DIFFERENTIA been L - CCL cancelled. Performed By: #### CBCDFC #### [facility] (DEFAULT) [address] [place] [address] *POC GLUCOSE BATTERY Collected: 06/28/2017 Status: F Source: [facility] 5:11 PM [facility] REPOSITORY TYPE CODE TESTS RESULT OUT OF REFERENCE UNITS RANGE LAB GLUP 70-99 mg/dL Glucose (poc 74 device) Result Comment: No BRAVE per RN: PATIENT TYPE LAB PCSTYP *POC Arterial SAMPLE TYPE *POC GLUCOSE BATTERY Collected: 06/28/2017 Status: F Source: [facility] 12:33 PM [facility] REPOSITORY TYPE CODE TESTS RESULT OUT OF REFERENCE UNITS RANGE LAB GLUP 70-99 mg/dL Glucose (poc 72 device) Result Comment: No BRAVE per RN: PATIENT TYPE LAB PCSTYP *POC SAMPLE TYPE Venous CBC,PLATELET,DIFFERENTIAL - CCL Collected: Status: F Source: [facility] 06/28/2017 11:56 [facility] REPOSITORY TYPE CODE TESTS RESULT OUT OF REFERENCE UNITS RANGE LAB WBC 4.23-9.07 K/uL WBC Count 8.95 LAB RBC 4.63-6.08 M/uL RBC Count 5.36 LAB HGB 13.7-17.5 g/dL Hemoglobin 17.4 LAB HCT 40.1-51.0 % Hematocrit 49.2 LAB MCV 79.0-92.2 fL Mean Cell 91.8 Volume LAB MCH 25.7-32.2 pg Mean Cell 32.5 High Hgb LAB MCHC 32.3-36.5 g/dL Mean Cell 35.4 Hgb Conc LAB RDW 11.6-14.4 % RBC 12.3 Distribution LAB PLT 163-337 K/uL Platelet 206 Count LAB MPV 9.4-12.4 fL Mean 9.8 Platelet Volume LAB NRBC 0.0-0.2 /100 WBC NUCLEATED 0.0 RBC LAB DTYPE Electronic DIFFERENTIAL TYPE Differential LAB IGRE % IMMATURE 0.1 GRANS % LAB SEGS % NEUTROPHIL 54.0 SEGMENTED LAB LYM % LYMPHOCYTE 35.8 % LAB MON % MONOCYTE % 6.7 LAB EOS % EOSINOPHIL 3.1 % LAB BASO % BASOPHIL % 0.3 LAB IGABS 0.00-0.03 K/uL IMMATURE 0.01 GRANS ABSOLUTE LAB SBANS 1.78-5.38 K/uL SEGS + 4.83 Bands,Absolute LAB ALYM 1.32-3.57 K/uL Abs Lymph 3.20 LAB AMONO 0.30-0.82 K/uL Abs [facility] [place] 0.60 LAB AEOS 0.04-0.54 K/uL Abs Eos 0.28 LAB ABASO 0.01-0.08 K/uL Abs Baso 0.03 Performed By: #### THU, GERMAN, M7 #### [address] [address] PT*PTT Collected: 06/28/2017 Status: F Source: [facility] 11:56 AM [facility] REPOSITORY TYPE CODE TESTS RESULT OUT OF RANGE REFERENCE UNITS LAB PT 11.9-14.2 sec PT 12.6 LAB INR 0.9-1.1 INR 1.0 LAB PTT 24.0-34.3 sec PTT 24.6 Performed By: #### THU, [facility], M7 #### [address] [address] CHEM 7 Collected: 06/28/2017 Status: F Source: [facility] 11:56 [facility] REPOSITORY TYPE CODE TESTS RESULT OUT OF REFERENCE UNITS RANGE LAB BUN 7-22 mg/dL BUN 12 LAB NA 133-143 mmol/L Sodium 137 LAB K 3.5-5.0 mmol/L Low Potassium 3.3 LAB CL 98-108 mmol/L Chloride 100 LAB CO2 22-30 mmol/L Carbon Dioxide 28 LAB GLUC 70-99 mg/dL Glucose 71 LAB CREA 0.70-1.30 mg/dL Creatinine 0.96 LAB GAP 7-17 mmol/L Anion Gap 12 LAB BC BUN/CREA Ratio 13 LAB OSMC 278-305 mOsm/kg Osmolality 284 (Calc) LAB GFR >60 mL/min/1.73 sqM Est GFR,non >60 Welsh LAB GFRA >60 mL/min/1.73 sqM Est GFR, >60 Performed By: #### CBCDFC, PTPTT, CHM7 #### [facility] [id number] [place] [address] [place] [address] Observed: 06/16/2017 Status: F Source: [facility] TYPE AND CROSS 8:40 AM [facility] REPOSITORY ABO/RH(D): AB POSITIVE ANTIBODY SCREEN: NEGATIVE Performed By: #### XM #### [facility] [address] [place] [id number] [place] [address] [place] [address] *POC GLUCOSE BATTERY Collected: 06/16/2017 Status: F Source: [facility] 7:01 AM [facility] REPOSITORY TYPE CODE TESTS RESULT OUT OF REFERENCE UNITS RANGE LAB GLUP 70-99 mg/dL High Glucose (poc 149 device) Result Comment: Notified RNread back Meets BRAVE per RN: PATIENT TYPE LAB PCSTYP *POC SAMPLE TYPE Venous CBC,PLATELET,DIFFERENTIAL - CCL Collected: Status: X Source: [facility] 06/16/2017 6:47 AM [facility] REPOSITORY TYPE CODE TESTS RESULT OUT OF REFERENCE UNITS RANGE LAB CBCDFC This CBC,PLATELET result has ,DIFFERENTIA been L - CCL cancelled. Performed By: #### CBCDFC, PTPTT #### [facility] (DEFAULT) [address] [place] [address] PT*PTT Collected: 06/16/2017 Status: X Source: [facility] 6:47 AM [facility] REPOSITORY TYPE CODE TESTS RESULT OUT OF REFERENCE UNITS RANGE LAB PTPTT PT*PTT This result has been cancelled. Performed By: #### CBCDFC, PTPTT #### [facility] (DEFAULT) [address] [place] [address] ALLERGIES ALLERGIES DATE TYPE / CODE NAME / CODE REACTION SEVERITY SOURCE 03/09/2018 Drug No Known Unknown [facility] Allergy/4160 Allergies/F00 Hospital 72277(SNOMED 3629247(RXNOR Repository CT) M) ENCOUNTERS ENCOUNTERS ADMIT/DISCHARGE ACCOUNT NUMBER ADMITTING ENCOUNTER LOCATION SOURCE CLASS 03/27/2018 [id number] Tereletsky, Ambulatory BMSBuilding: Clear Felix BMS.[facility] Repository 03/27/2018/03/29/20 [id number] Ambulatory BMSBuilding: Clear [facility] Repository 03/27/2018/03/29/20 [id number] Tereletsky, Inpatient [place] [address] ding:PCURoom Repository : [id number]: 1 03/27/2018 [id number] Tereletsky, Ambulatory BMSBuilding: [place] Felix BMS.[facility] Repository 03/27/2018 [id number] Tereletsky, Ambulatory BMSBuilding: Clear Felix BMS.[facility] Repository 03/12/2018 [id number] Ambulatory BMSBuilding: Clear BMS.[facility] Repository 02/01/2018 [id number] Ambulatory Building:[facility] Repository 10/25/2017 [id number] Ambulatory Building:[facility] Repository 10/24/2017/10/25/19 [id number] Emergency [address] ding:ED Repository 10/13/2017 [id number] Ambulatory [facility] ding:LAB.FUT Repository URE 08/30/2017/08/31/19 [id number] Emergency [address] ding:ED Repository 08/11/2017/08/12/19 [id number] Ambulatory BMSBuilding: Clear 18 BMS.[facility] Repository 08/10/2017 [id number] Ambulatory BMSBuilding: Maxwell BMS.[facility] Repository 08/10/2017 [id number] Ambulatory BMSBuilding: Maxwell BMS.[facility] Repository 07/19/2017 [id number] Ambulatory Building:[facility] Repository 07/12/2017 [id number] Ambulatory BMSBuilding: Maxwell BMS.[facility] Repository 06/28/2017/06/28/19 [id number] CIERA BERRY Ambulatory Building:[address] RSSRoom: [facility] Repository 06/16/2017/06/16/19 [id number] CIERA BERRY Ambulatory Building:[facility] 18 RSSRoom: [facility] Repository 05/11/2017 [id number] Ambulatory [facility] ding:LAB.FUT Repository URE PAYERS PAYERS ENCOUNTER GUARANTOR PAYER SUBSCRIBER SOURCE 03/27/2018 JEANETTE Kerns [facility] JEANETTE MORA523 Insurance:PARAMOUNT FRANKLINDOB: [facility], [facility] [id number] [facility]ajo Medical Center [address]Dko: Number: Repository [id number] () Date:7584-25-05QL [address] [address]US: 03/27/2018 Secondary NOT GIVENUNK [place] Insurance:SELF PAY [facility] Number: Effective Repository Date:2018-03-27 03/27/2018 JEANETTE T [facility] JEANETTE MORA523 Insurance:PARAMOUNT FRANKLINDOB: [facility], [facility] [id number] Navajo Medical Center [address]Trz: Number: Repository [id number] () Date:6460-39-53TZ [address] [place] [address]SB: 03/27/2018 Secondary NOT GIVENUNK [place] Insurance:SELF PAY [facility] Number: Effective Repository Date:2018-03-27 03/27/2018 JEANETTE T [facility] JEANETTE MORA523 Insurance:PARAMOUNT FRANKLINDOB: [facility], [facility] [id number] Navajo Medical Center [address]Wrf: Number: Repository [id number] () Date:1850-98-48NW [address] [place] [address]IV: 03/27/2018 Secondary NOT GIVENUNK [place] Insurance:SELF PAY [facility] Number: Effective Repository Date:2018-03-27 03/27/2018 [facility] Clear [id number] Insurance:PARAMOUNT FRANKLINDOB: [facility] [id number] Navajo Medical Center [address]Qis: Number: Repository [id number] () Date:2925-47-13BW [address] [address]NA: 03/27/2018 Secondary NOT GIVENUNK Clear Insurance:SELF PAY [facility] Number: Effective Repository Date:2018-03-27 03/27/2018 [facility]523 Insurance:PARAMOUNT FRANKLINDOB: [facility] [id number] Navajo Medical Center [address]Rci: Number: Repository [id number] () Date:5562-49-37VR [address] [address]DW: 03/27/2018 Secondary NOT GIVENUNK [place] Insurance:SELF PAY [facility] Number: Effective Repository Date:2018-03-27 03/12/2018 [facility] Insurance:PARAMOUNT FRANKLINDOB: [facility] [id number] Number: Repository [address]Vmi: 330 [id number] [phone] () Date:7305-54-36QS [address] [address]US: 03/12/2018 Secondary NOT GIVENUNK [place] Insurance:SELF PAY [facility] Number: Effective Repository Date:2017-09-01 02/01/2018 [facility] FRANKLINDOB: Insurance:PARAMOUNT FRANKLINDOB: [facility] [id number] [facility] Number: [place], [place] [id number] [place], [place] Repository [address]Fgz: ([phone]) Date:2776-29-05Ucxb [address]Iit: () Name:VIK [phone] () 10/25/2017 JEANETTE Kerns [facility] FRANKLINDOB: Insurance:PARAMOUNT FRANKLINDOB: [facility] [id number] [facility] Number: [place], [place] [id number] [place], [place] Repository [address]Tzg: (330) Date:8289-93-66Onrw [address]Ylb: () Name:VIK [phone] () 10/24/2017 JEANETTE Kerns [place] [id number] Insurance:PARAMOUNT FRANKLINB: [facility] [id number] Number: Repository [address]Wpm: 330 [id number] [phone] () Date:5225-52-44[address] [address]ZR: 10/24/2017 Secondary NOT GIVENUNK [place] Insurance:SELF PAY [facility] Number: Effective Repository Date:2017-10-24 10/13/2017 JEANETTE Kerns Primary JEANETTE Kerns [place] [id number] Insurance:[facility] [id number], [place] Number: Repository [address]Ocw: [id number] [phone] Date:4838-80-82MN [address] ) [place], [place] [address]SL: 10/13/2017 Secondary NOT GIVENUNK Clear Insurance:SELF PAY [facility] Number: Effective Repository Date:2017-10-11 08/30/2017 JEANETTE Kerns Primary JEANETTE Kerns Clear [id number] Insurance:PARAMOUNT FRANKLINB: [facility] [id number], [place] Number: Repository [address]Kxs: [id number] [phone] Date:2658-47-86NC [address] (HP) [address] [place] [address]BW: 08/30/2017 Secondary NOT GIVENUNK Clear Insurance:SELF PAY [facility] Number: Effective Repository Date:2017-08-30 08/11/2017 [facility] Insurance:PARAMOUNT FRANKLINDOB: Community [employer] [facility] [id number] Number: Repository [address]Wiz: 330 [id number] [phone] () Date:7370-98-07HC [address] [place] [address]PT: 08/11/2017 Secondary NOT GIVENUNK [place] Insurance:SELF PAY [facility] Number: Effective Repository Date:2017-04-07 08/10/2017 [facility] Insurance:PARAMOUNT FranklinDOB: Community [employer] [facility] [id number] Number: Repository [address]Xlk: 330 [id number] [phone] () Date:2692-57-73TT [address] [place] [address]JE: 08/10/2017 Secondary NOT GIVENUNK Clear Insurance:SELF PAY [facility] Number: Effective Repository Date:2017-08-10 08/10/2017 [place] [id number] Insurance:PARAMOUNT FranklinDOB: Community [employer] [facility] [id number] Number: Repository [address]Tlx: 330 [id number] [phone] () Date:7086-57-24FP [address] [place] [address]PY: 08/10/2017 Secondary NOT GIVENUNK [place] Insurance:SELF PAY [facility] Number: Effective Repository Date:2017-08-10 07/19/2017 [facility] FRANKLINDOB: Insurance:PARAMOUNT FRANKLINDOB: [facility] [id number] [facility] Number: [place], [place] [id number] [place] Repository [address]Nsn: (330) Date:5078-14-46Wpxc [address]Frb: () Name:VIK [id number] () 07/12/2017 [facility] Insurance:PARAMOUNT FranklinDOB: [facility] [id number], [place] Number: Repository [address]Cda: 330) [id number] [phone] () Date:9931-99-64JZ [address] [address]PH: 07/12/[address] [facility] Insurance:SELF PAY [facility] Number: Effective Repository Date:2017-07-12 06/28/2017 [facility] Insurance:PARAMOUNT FRANKLINDOB: [facility] [id number] [facility] Number: [place], [place] [id number] [place], [place] Repository [address]Azn: 330) Date:3833-23-04Amtj [address]Egu: () Name:VIK [phone] () 06/16/2017 [facility]: Insurance:PARAMOUNT FRANKLINDOB: [facility] [id number] [facility] Number: [place], [place] [id number] [place] Repository [address]Eit: (330) Date:2747-83-31Ltyb [address]Evm: () Name:VIK [phone] () 05/11/2017 [facility] Insurance:PARAMOUNT FranklinDOB: [facility] [id number], [place] Number: Repository [address]Isx: ([phone]) [id number] [phone] () Date:3323-43-80BR [facility] [place] [address]FD: 05/11/2017 Secondary NOT GIVENBRANDON Arreola Insurance:SELF PAY [facility] Number: Effective Repository Date:2017-05-11
== END 2018-03-29 13:47 | disposition home or self-care (01) | DRG 194 ==
LOC: ED 06:40 → ICU 15:27 → PCU 03-29 07:09 → ICU 03-29 07:10
PROVIDERS: Student in an Organized Health Care Education/Training Program; Admitting Provider Internal Medicine; Emergency Provider Emergency Medicine; Family Provider Family Medicine; PCP Family Medicine; Visit Provider Internal Medicine
DX: I11.0 Hypertensive heart disease with heart failure (principal); I25.5 Ischemic cardiomyopathy; E78.5 Hyperlipidemia, unspecified; E11.9 Type 2 diabetes mellitus without complications; I25.10 Atherosclerotic heart disease of native coronary artery without angina pectoris; Z23 Encounter for immunization; R09.02 Hypoxemia; I50.23 Acute on chronic systolic (congestive) heart failure; R06.89 Other abnormalities of breathing; Z95.5 Presence of coronary angioplasty implant and graft; Z95.810 Presence of automatic (implantable) cardiac defibrillator; F17.210 Nicotine dependence, cigarettes, uncomplicated; Z79.899 Other long term (current) drug therapy; Z79.02 Long term (current) use of antithrombotics/antiplatelets; Z91.19 Patient's noncompliance with other medical treatment and regimen; F19.10 Other psychoactive substance abuse, uncomplicated
CPT/HCPCS: 71045; 71046; 80048; 80307; 82962; 83880; 84484; 85025; 85610; 93005; 93306; 94640; 99251; 99285; 99406; 90686; A4216; G0463; J1940

== ENCOUNTER 2018-04-28 06:30 | Inpatient (IN) | payer MEDICAID, SELFPAY ==
[2018-03-27 10:00] VITALS: BMI 26.8
[2018-04-28] VITALS (13 sets, daily range): BP systolic 125–137; BP diastolic 72–99; PULSE 98–106; RESP 18–27; TEMP 36.3–36.8; O2SAT 94–100; BMI 26.7; BMI 26.1
--- NOTE | 2018-04-28 06:42 | EKG12_ITS ---
Test Reason : CP Blood Pressure : / mmHG Vent. Rate : 104 BPM Atrial Rate : 104 BPM P-R Int : 158 ms QRS Dur : 092 ms QT Int : 374 ms P-R-T Axes : 062 -50 096 degrees QTc Int : 491 ms Sinus tachycardia Possible Left atrial enlargement Left anterior fascicular block Anteroseptal infarct , age undetermined T wave abnormality, consider lateral ischemia Abnormal ECG Confirmed by KATRINA MCKEON, SAMANTHA ([id number]), newspaper editor EDELMIRA RIVAS ([id number]) on 04/30/2018 12:34:06 PM Referred By: CHANDAN Confirmed By:SAMANTHA HERNDON MD
--- NOTE | 2018-04-28 06:42 | RAD_ITS ---
HISTORY: CHEST PAIN EXAM:XR Chest 1 View: Portable COMPARISON: 03/28/2018 FINDINGS: EKG leads in place. LINES/DEVICES: Redemonstration of a pacemaker generator at the lower left chest wall with the catheter tip in the region of the right atrium and SVC. The electrode is unchanged in position. Interval improvement. Previously seen bilateral pleural effusions are decreased in size or resolved. Residual bibasilar infiltrates or edema, worse on the right and without significant change. No pneumothorax. The heart is unchanged in size. RAD/Chest 1 View (Portable) IMPRESSION: 1. Previously seen bilateral pleural effusions are decreased in size or resolved. 2. Residual bibasilar airspace infiltrates or edema, worse on the right, without significant change. at 0804 Reported and signed by: Remi Ramos MD Electronically Signed: Remi Ramos, at 8:03 EST Tel , Service support ,
--- NOTE | 2018-04-28 06:43 | CT_ITS ---
STUDY: CT BRAIN WITHOUT CONTRAST REASON FOR EXAM: Male, 42 years old. Confusion. Pt has heart hx-stents x 5. RADIATION DOSAGE (If Supplied By Facility): CTDIvol = ( 44.99 ) mGy, DLP = ( 779.29 ) mGycm TECHNIQUE: Transaxial CT imaging of the brain was performed without administration of intravenous contrast material. Individualized dose optimization techniques were used for this CT. COMPARISON: None. FINDINGS: Normal soft tissue structures. Normal calvarium. Normal size ventricles and extra-axial spaces for the patient's age. Normal white matter tracts of the cerebral hemispheres. Normal basal ganglia and thalami. Normal brainstem. Normal cerebellum. There is no intracranial hemorrhage. There are no findings of an acute ischemic infarction. Normal visualized paranasal sinuses. CT/Brain/Head without Contrast IMPRESSION: Normal unenhanced CT scan of the brain. Electronically Signed: Tr Guan MD at 8:07 EST Tel , Service support ,
--- NOTE | 2018-04-28 06:44 | ED.VISSUMM ---
- ER Visit Summary Date of Service: 04/28/18 Chief Complaint: Chest pain History of Present Illness: The patient is a 42 M who presents with chest pain. He began to complain of a headache about 2 AM. He fell back asleep. He woke about an hour ago and had a productive cough and felt like his chest was congested. He then developed severe substernal left-sided chest pain which he described as heaviness. Visitor states that he was very diaphoretic. Patient complains of shortness of breath. He denies nausea or vomiting. He denies recent illness and states that he was well yesterday except for a little bit of wheezing. He does complain of some generalized weakness. He does admit to cocaine use last night. He also admits he is noncompliant with his medications. He was recently admitted for acute CHF exacerbation. Physical Examination: Afebrile vitals notable for heart rate 98 respiratory rate 19 Patient is diaphoretic Patient is lethargic but arouses to voice and repeated stimulation he does not have any focal or lateralizing neurological deficits Moist mucous membranes Heart is regular rhythm slightly tachycardic Patient has scattered wheezing and some rales in the right lower lung field Abdomen soft nontender nondistended Extremities nontender with symmetric palpable radial pulses Test Results: EKG shows sinus rhythm at a rate of 104. Laboratory studies including troponin BNP and arterial blood gases pending. Chest x-ray ordered and pending. Given his report of headache and lethargy we will also obtain a CT of the head. Emergency Department Course and Treatment: Workup pending as above. Patient will be signed out to the oncoming physician for follow-up on results. I do believe given his history that he will require admission. Treatment Plan: [] Disposition: Admit pending laboratory studies and imaging Impression: Chest pain Headache Altered mental status This note was generated with [employer] dictation software. It may contain incorrect words, spelling, and punctuation that were not noted in review of the chart prior to signing ED Disposition - Plan for ED Patient: Chief Complaint: Chest Pain Referrals: Jesus Child [Primary Care Provider] -
[2018-04-28 07:01] LABS: Bedside Glucose 232 mg/dL (70-110)
[2018-04-28 07:02] LABS: Absolute Lymphocyte Count 1.85 X10^3/ul (0.83-4.51); Absolute Neutrophil Count 4.2 X10^3/uL (2.0-7.7); Basophil# 0.02 X10^3/uL; Basophil% 0.3 % (0-1); Eosinophil# 0.21 X10^3/uL; Eosinophils% 3.1 % (0-5); Hematocrit 39.6 % (40-54); Hemoglobin 13.6 g/dl (13.0-16.5); Lymphocyte # 1.85 X10^3/ul (4.0); Lymphocyte % 27.5 % (19-41); Mean Corp Hgb Conc 34.3 g/gl (32-36); Mean Corpuscular Hgb 30.4 pg (27.0-32.0); Mean Corpuscular Volume 88.4 fL (80-94); Mean Platelet Vol. 9.6 fl (6.2-12.0); Monocyte# 0.46 X10^3/uL; Monocyte% 6.8 % (0-10); Neutrophil # 4.18 X10^3/uL (2.7-7.7); Neutrophil % 62.2 % (47-70); Platelet Count 164 K/mm3 (150-450); RBC Distribution Width CV 12.9 % (11.6-14.6); RBC Distribution Width SD 41.4 fl (35.1-43.9); Red Blood Count 4.48 M/mm3 (4.6-6.2); White Blood Count 6.7 K/mm3 (4.4-11.0)
[2018-04-28 07:17] LABS: POSITIVE COUNT NO; POSITIVE DIFFERENTIAL NO; POSITIVE MORPHOLOGY NO
[2018-04-28 07:23] LABS: Anion Gap 9 (5-15); BUN 18 mg/dL (7-18); BUN/Creat Ratio 15.7 RATIO (10-20); Calcium,Total 8.4 mg/dL (8.5-10.1); Chloride 107 mmol/L (98-107); Creatinine, Serum 1.15 mg/dL (0.70-1.30); EST Glomerular Filtration Rate 75 mL/min (>60); Est Glom Filt Rate - Afr Amer 90 mL/min (>60); Estimated Creatinine Clearance 93.72 ml/min; Glucose 238 mg/dL (74-106); Potassium 4.3 mmol/L (3.5-5.1); Sodium Level 141 mmol/L (136-145)
[2018-04-28 07:41] LABS: Allen Test POS; Base Excess -2 mmol/L (-2 to +2); Bicarbonate 23.4 mmol/L (22-26); Blood Gas Specimen Type ART; O2 Delivery Device Nasal Can; PO2 97 mmHG (75-100); SITE L Radial; SO2 97 % (95-99); Time Given 730; Total Carbon Dioxide 25 mmol/L; pCO2 41.1 mmHg (35-45); pH 7.36 (7.35-7.45)
[2018-04-28] MEDS: Furosemide 40 MG/4 ML Vial IV ×2 (07:57→18:12)
[2018-04-28 08:11] LABS: BNP,B-Type NATRIURETIC PEPTIDE 604.2 pg/mL (0-100)
[2018-04-28 09:11] LABS: Amphetamine Urine VISTA POSITIVE (<1000 ng/mL); Barbiturate Urine VISTA NEGATIVE (< 200 ng/mL); Benzodiazepine Urine VISTA NEGATIVE (< 200 ng/mL); Cocaine Urine VISTA NEGATIVE (< 300 ng/mL); Ecstacy Urine VISTA NEGATIVE (< 500 ng/mL); Methadone Urine VISTA NEGATIVE (< 300 ng/mL); PCP Urine VISTA NEGATIVE (< 25 ng/mL); THC Urine VISTA POSITIVE (< 50 ng/mL); Vista UDS pH Range 5
--- NOTE | 2018-04-28 10:14 | EKG12_ITS ---
Test Reason : CP ADMISSION Blood Pressure : / mmHG Vent. Rate : 088 BPM Atrial Rate : 088 BPM P-R Int : 168 ms QRS Dur : 094 ms QT Int : 366 ms P-R-T Axes : 063 -56 085 degrees QTc Int : 442 ms Normal sinus rhythm Possible Left atrial enlargement Left anterior fascicular block Anteroseptal infarct , age undetermined Abnormal ECG Confirmed by KATRINA MCKEON, SAMANTHA ([id number]), editorial manager EDELMIRA RIVAS ([id number]) on 05/02/2018 3:06:21 PM Referred By: DR SERRANO Confirmed By:SAMANTHA HERNDON MD
--- NOTE | 2018-04-28 11:16 | PCM.HP.STD ---
Problem List (1) HFrEF (heart failure with reduced ejection fraction) Status: Acute (2) Elevated troponin Status: Acute History of Present Illness Date of Admission: 04/28/18 Chief Complaint: shortness of breath The patient is a 42 year old M patient is groggy and likely intoxicated and so much the history is unobtainable through the patient much the history is actually obtained through the emergency room physician. Apparently, the patient was using cocaine and had chest pain and shortness of breath. Presented to the emergency room where he had a chest x-ray consistent with CHF. Initial troponin was 0.028 and a BNP of 604. Subsequent troponin came back at 1.2. Urine drug screen is positive for amphetamines as well as cannabinoids. Patient received IV Lasix in the emergency room and patient was subsequently admitted. [] Past Medical History Past Medical History (Chronic Problems): Chronic Problems (Last Reviewed 03/12/18 @ 10:47 by Savanna Dave) Severe left ventricular systolic dysfunction (Chronic) Polysubstance abuse (Chronic) marijuana, cocaine 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/28/17) SICD per Dr Berry @ [facility] Nicotine dependence (Chronic) Old myocardial infarction (Chronic) Hypertension (Chronic) History of coronary artery stent placement (Chronic) PCI-MEHRDAD-LAD 08/2014, [id number]-Mid CX and Prox-Mid RCA 03/18/15, Thrombosis of CX stent 03/25/15 Atherosclerosis of coronary artery of [place] heart without angina pectoris (Chronic) PCI-MEHRDAD-LAD 08/2014, [id number]-Mid CX and Prox-Mid RCA 03/18/15, Thrombosis of CX stent 03/25/15 Ischemic cardiomyopathy (Chronic) EF 20% per echo 08/08/2016 Hyperlipidemia (Chronic) Type 2 diabetes mellitus (Chronic) Chronic systolic CHF (congestive heart failure) (Chronic) Medical History: Medical History (Last Reviewed 04/28/18 @ 11:18 by Bro Hewitt DO) Severe left ventricular systolic dysfunction (Chronic) I51.9 Polysubstance abuse (Chronic) F19.10 marijuana, cocaine Nicotine dependence (Chronic) F17.200 Old myocardial infarction (Chronic) I25.2 Hypertension (Chronic) I10 Atherosclerosis of coronary artery of [place] heart without angina pectoris (Chronic) I25.10 PCI-MEHRDAD-LAD 08/2014, [id number]-Mid CX and Prox-Mid RCA 03/18/15, Thrombosis of CX stent 03/25/15 Ischemic cardiomyopathy (Chronic) I25.5 EF 20% per echo 08/08/2016 Hyperlipidemia (Chronic) E78.5 Type 2 diabetes mellitus (Chronic) E11.9 Chronic systolic CHF (congestive heart failure) (Chronic) I50.22 Depression F32.9 Peripheral neuropathy G62.9 Allergies No Known Allergies Allergy (Verified 04/28/18 06:37) Home Medications: Ambulatory Orders Medication Instructions Recorded Magnesium Oxide [Mag-Ox 400] 400 mg PO DAILYCM #30 tab 08/08/16 Spironolactone [Aldactone] 25 mg PO DAILY #30 tab 08/08/16 Insulin Glargine,Hum.rec.anlog 14 unit SQ DAILY 04/09/17 [Basaglar Kwikpen U-100] alprazolam 1 mg tablet 1 mg PO PRN PRN 30 Days #60 07/12/17 hydrocodone 10 mg-acetaminophen 1 tab PO PRN PRN 30 Days #120 07/12/17 325 mg tablet sennosides 8.6 mg tablet 8.6 mg PO BID PRN 08/11/17 Hydrocodone Bitart/Apap 5-325 1 tab PO Q6H PRN PRN 2 Days #6 tab 10/24/17 [[place] 5/325] Aspirin E.C. [Ecotrin] 81 mg PO DAILY@0800 #30 tablet 03/29/18 Carvedilol 3.125 mg PO BID 30 Days #30 tab 03/29/18 Clopidogrel Bisulfate [Plavix] 75 mg PO DAILY #30 tablet 03/29/18 Gabapentin [Neurontin] 800 mg PO BIDCM #60 tablet 03/29/18 Sertraline HCl [Zoloft] 1 tab PO DAILY #30 tablet 03/29/18 Atorvastatin Calcium [Lipitor] 40 mg PO BID 04/28/18 Furosemide [Lasix] 40 mg PO BID 04/28/18 Losartan Potassium [Cozaar] 25 mg PO DAILY 04/28/18 Potassium Chloride [Klor-Con] 10 meq PO DAILY 04/28/18 Surgical History: Surgical History (Last Reviewed 04/28/18 @ 11:18 by Bro Hewitt DO) 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) Onset Date: 06/28/[address] Berry @ [facility] History of coronary artery stent placement (Chronic) Z95.5 PCI-MEHRDAD-LAD 08/2014, [id number]-Mid CX and Prox-Mid RCA 03/18/15, Thrombosis of CX stent 03/25/15 History of appendectomy Z90.49 Surgical History: - - Cardiac stent August 2014 Psychiatric History: Depression Smoking Status: Current every day smoker - *Family History Paternal Family History: Family History (Last Reviewed 04/28/18 @ 11:18 by Bro Hewitt DO) Mother CAD (coronary artery disease) Diabetes Hypertension Myocardial infarction Father CAD (coronary artery disease) Diabetes Hypertension Myocardial infarction Brother Hypertension History Items: - - Denies paternal cardiac history Maternal Family History: Family History (Last Reviewed 04/28/18 @ 11:18 by Bro Hewitt DO) Mother CAD (coronary artery disease) Diabetes Hypertension Myocardial infarction Father CAD (coronary artery disease) Diabetes Hypertension Myocardial infarction Brother Hypertension History Items: Heart Disease Review of Systems Comment: Unable to adequately obtain the review of systems during encounter stain only has some mild leg pain in the do not work but then quickly falls asleep. Otherwise review of systems is unobtainable. VTE Information - Inpt Only VTE Present on Admission: No VTE Pharm Prophylaxis ordered?: Yes Patient Problems: Active and Suspected Problems (Last Reviewed 03/12/18 @ 10:47 by Savanna Dave) HFrEF (heart failure with reduced ejection fraction) (Acute) Elevated troponin (Acute) - Physical Exam General: Confused, Disoriented, Lethargic HEENT: Atraumatic, Normocephalic Oral: No Gingival or Mucosal Lesions/ Ulcerations Neck: No Nodes, Thyroid Normal Size and Texture Lungs: Clear to auscultation, Diminished Cardiovascular: Regular rate, Regular Rhythm, Normal S1, Normal S2 Abdomen: Bowel Sounds Present, Soft, Non Tender, Non-Distended Extremities: No Calf Tenderness, Edema Skin: No rashes, - - Stasis dermatitis of the lower extremities Vital Signs Temp Pulse Resp BP Pulse Ox 36.3 C L 100 18 125/90 H 97 04/28/18 09:00 04/28/18 10:07 04/28/18 09:00 04/28/18 09:00 04/28/18 10:30 Oxygen Flow Rate (L/min) 2 Oxygen Delivery Method Room Air Weight: 87.3 kg Body Mass Index (BMI) 26.1 Finger Stick Blood Glucose 119 Laboratory Tests Past 24 Hrs 04/28/18 04/28/18 04/28/18 06:55 06:55 06:55 WBC 6.7 RBC 4.48 L Hgb 13.6 Hct 39.6 L MCV 88.4 MCH 30.4 MCHC 34.3 RDW 12.9 RDW Differential 41.4 Plt Count 164 MPV 9.6 Immature Gran % (Auto) 0.100 Neut % (Auto) 62.2 Lymph % (Auto) 27.5 [place] % (Auto) 6.8 Eos % (Auto) 3.1 Baso % (Auto) 0.3 Absolute Neuts (auto) 4.2 Absolute Lymphs (auto) 1.85 Total Counted Not Reportable Specimen Type Sample Site pH Bicarbonate Actual POC Total CO2 Base Excess O2 Saturation ABG pCO2 ABG pO2 Sami Test O2 Delivery Device Liter Flow Blood Gas Notified Whom Blood Gas Notified Time Sodium 141 Potassium 4.3 Chloride 107 Carbon Dioxide 25.0 Anion Gap 9 BUN 18 Creatinine 1.15 Estim Creat Clear Calc 93.72 Est GFR (MDRD) Af Amer 90 Est GFR (MDRD) Non-Af 75 BUN/Creatinine Ratio 15.7 Glucose 238 H Calcium 8.4 L Troponin I 0.028 B-Natriuretic Peptide 604.2 H Urine Opiates Screen Urine Methadone Screen Ur Barbiturates Screen Ur Phencyclidine Scrn Ur Amphetamines Screen U Methamphetamin-MDMA U Benzodiazepines Scrn Urine Cocaine Screen U Cannabinoids Screen Ur Drug Screen Comment 04/28/18 04/28/18 04/28/18 07:35 08:35 09:55 WBC RBC Hgb Hct MCV MCH MCHC RDW RDW Differential Plt Count MPV Immature Gran % (Auto) Neut % (Auto) Lymph % (Auto) [place] % (Auto) Eos % (Auto) Baso % (Auto) Absolute Neuts (auto) Absolute Lymphs (auto) Total Counted Specimen Type ART Sample Site L Radial pH 7.36 Bicarbonate Actual 23.4 POC Total CO2 25 Base Excess -2 O2 Saturation 97 ABG pCO2 41.1 ABG pO2 97 Sami Test POS O2 Delivery Device Nasal Can Liter Flow 2.0 Blood Gas Notified Whom ED Blood Gas Notified Time 730 Sodium Potassium Chloride Carbon Dioxide Anion Gap BUN Creatinine Estim Creat Clear Calc Est GFR (MDRD) Af Amer Est GFR (MDRD) Non-Af BUN/Creatinine Ratio Glucose Calcium Troponin I 1.210 H* B-Natriuretic Peptide Urine Opiates Screen NEGATIVE Urine Methadone Screen NEGATIVE Ur Barbiturates Screen NEGATIVE Ur Phencyclidine Scrn NEGATIVE Ur Amphetamines Screen POSITIVE H U Methamphetamin-MDMA NEGATIVE U Benzodiazepines Scrn NEGATIVE Urine Cocaine Screen NEGATIVE U Cannabinoids Screen POSITIVE H Ur Drug Screen Comment POC Glucose 04/28/18 06:50 POC Glucose 232 H Assessment/Plan All Active Problems (Last Reviewed 03/12/18 @ 10:47 by Savanna Dave) HFrEF (heart failure with reduced ejection fraction) (Acute) Elevated troponin (Acute) Acute on chronic systolic CHF (congestive heart failure) (Resolved) Hypomagnesemia (Resolved) 1. Acute heart failure with reduced ejection fraction Ejection fraction is 15% from echocardiogram on 03/27 Continue with IV Lasix Continue spironolactone and losartan. Carvedilol will be held given the recent cocaine ingestion 2. Elevated troponins Could be related with demand ischemia from the CHF but could also be related with a primary coronary event given his history of ischemic heart disease but also could be related with the vasospasm given the cocaine and amphetamine ingestion. Patient will be started on the weight-based Lovenox Cardiology consultation Continue aspirin 3. Polysubstance abuse This is been long-standing problem for the patient Given the cocaine ingestion will beta-blockers for now 4. Diabetes mellitus type 2 Continue with his basal insulin plus sliding scale 5. DVT prophylaxis with anticoagulation Code Visit Inpatient E&M: 14328 Init Hosp L2
--- NOTE | 2018-04-28 11:22 | HP.PCM_ITS ---
Problem List (1) HFrEF (heart failure with reduced ejection fraction) Status: Acute (2) Elevated troponin Status: Acute History of Present Illness Date of Admission: 04/28/18 Chief Complaint: shortness of breath The patient is a 42 year old M patient is groggy and likely intoxicated and so much the history is unobtainable through the patient much the history is actually obtained through the emergency room physician. Apparently, the patient was using cocaine and had chest pain and shortness of breath. Presented to the emergency room where he had a chest x-ray consistent with CHF. Initial troponin was 0.028 and a BNP of 604. Subsequent troponin came back at 1.2. Urine drug screen is positive for amphetamines as well as cannabinoids. Patient received IV Lasix in the emergency room and patient was subsequently admitted. [] Past Medical History Past Medical History (Chronic Problems): Chronic Problems (Last Reviewed 03/12/18 @ 10:47 by Savanna Dave) Severe left ventricular systolic dysfunction (Chronic) Polysubstance abuse (Chronic) marijuana, cocaine 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/28/17) SICD per Dr Berry @ [facility] Nicotine dependence (Chronic) Old myocardial infarction (Chronic) Hypertension (Chronic) History of coronary artery stent placement (Chronic) PCI-MEHRDAD-LAD 08/2014, [id number]-Mid CX and Prox-Mid RCA 03/18/15, Thrombosis of CX stent 03/25/15 Atherosclerosis of coronary artery of [place] heart without angina pectoris (Chronic) PCI-MEHRDAD-LAD 08/2014, [id number]-Mid CX and Prox-Mid RCA 03/18/15, Thrombosis of CX stent 03/25/15 Ischemic cardiomyopathy (Chronic) EF 20% per echo 08/08/2016 Hyperlipidemia (Chronic) Type 2 diabetes mellitus (Chronic) Chronic systolic CHF (congestive heart failure) (Chronic) Medical History: Medical History (Last Reviewed 04/28/18 @ 11:18 by Bro Hewitt DO) Severe left ventricular systolic dysfunction (Chronic) I51.9 Polysubstance abuse (Chronic) F19.10 marijuana, cocaine Nicotine dependence (Chronic) F17.200 Old myocardial infarction (Chronic) I25.2 Hypertension (Chronic) I10 Atherosclerosis of coronary artery of [place] heart without angina pectoris (Chronic) I25.10 PCI-MEHRDAD-LAD 08/2014, [id number]-Mid CX and Prox-Mid RCA 03/18/15, Thrombosis of CX stent 03/25/15 Ischemic cardiomyopathy (Chronic) I25.5 EF 20% per echo 08/08/2016 Hyperlipidemia (Chronic) E78.5 Type 2 diabetes mellitus (Chronic) E11.9 Chronic systolic CHF (congestive heart failure) (Chronic) I50.22 Depression F32.9 Peripheral neuropathy G62.9 Allergies No Known Allergies Allergy (Verified 04/28/18 06:37) Home Medications: Ambulatory Orders Medication Instructions Recorded Magnesium Oxide [Mag-Ox 400] 400 mg PO DAILYCM #30 tab 08/08/16 Spironolactone [Aldactone] 25 mg PO DAILY #30 tab 08/08/16 Insulin Glargine,Hum.rec.anlog 14 unit SQ DAILY 04/09/17 [Basaglar Kwikpen U-100] alprazolam 1 mg tablet 1 mg PO PRN PRN 30 Days #60 07/12/17 hydrocodone 10 mg-acetaminophen 1 tab PO PRN PRN 30 Days #120 07/12/17 325 mg tablet sennosides 8.6 mg tablet 8.6 mg PO BID PRN 08/11/17 Hydrocodone Bitart/Apap 5-325 1 tab PO Q6H PRN PRN 2 Days #6 tab 10/24/17 [[place] 5/325] Aspirin E.C. [Ecotrin] 81 mg PO DAILY@0800 #30 tablet 03/29/18 Carvedilol 3.125 mg PO BID 30 Days #30 tab 03/29/18 Clopidogrel Bisulfate [Plavix] 75 mg PO DAILY #30 tablet 03/29/18 Gabapentin [Neurontin] 800 mg PO BIDCM #60 tablet 03/29/18 Sertraline HCl [Zoloft] 1 tab PO DAILY #30 tablet 03/29/18 Atorvastatin Calcium [Lipitor] 40 mg PO BID 04/28/18 Furosemide [Lasix] 40 mg PO BID 04/28/18 Losartan Potassium [Cozaar] 25 mg PO DAILY 04/28/18 Potassium Chloride [Klor-Con] 10 meq PO DAILY 04/28/18 Surgical History: Surgical History (Last Reviewed 04/28/18 @ 11:18 by Bro Hewitt DO) 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) Onset Date: 06/28/[address] Berry @ [facility] History of coronary artery stent placement (Chronic) Z95.5 PCI-MEHRDAD-LAD 08/2014, [id number]-Mid CX and Prox-Mid RCA 03/18/15, Thrombosis of CX stent 03/25/15 History of appendectomy Z90.49 Surgical History: - - Cardiac stent August 2014 Psychiatric History: Depression Smoking Status: Current every day smoker - *Family History Paternal Family History: Family History (Last Reviewed 04/28/18 @ 11:18 by Bro Hewitt DO) Mother CAD (coronary artery disease) Diabetes Hypertension Myocardial infarction Father CAD (coronary artery disease) Diabetes Hypertension Myocardial infarction Brother Hypertension History Items: - - Denies paternal cardiac history Maternal Family History: Family History (Last Reviewed 04/28/18 @ 11:18 by Bro Hewitt DO) Mother CAD (coronary artery disease) Diabetes Hypertension Myocardial infarction Father CAD (coronary artery disease) Diabetes Hypertension Myocardial infarction Brother Hypertension History Items: Heart Disease Review of Systems Comment: Unable to adequately obtain the review of systems during encounter stain only has some mild leg pain in the do not work but then quickly falls asleep. Otherwise review of systems is unobtainable. VTE Information - Inpt Only VTE Present on Admission: No VTE Pharm Prophylaxis ordered?: Yes Patient Problems: Active and Suspected Problems (Last Reviewed 03/12/18 @ 10:47 by Savanna Dave) HFrEF (heart failure with reduced ejection fraction) (Acute) Elevated troponin (Acute) - Physical Exam General: Confused, Disoriented, Lethargic HEENT: Atraumatic, Normocephalic Oral: No Gingival or Mucosal Lesions/ Ulcerations Neck: No Nodes, Thyroid Normal Size and Texture Lungs: Clear to auscultation, Diminished Cardiovascular: Regular rate, Regular Rhythm, Normal S1, Normal S2 Abdomen: Bowel Sounds Present, Soft, Non Tender, Non-Distended Extremities: No Calf Tenderness, Edema Skin: No rashes, - - Stasis dermatitis of the lower extremities Vital Signs Temp Pulse Resp BP Pulse Ox 36.3 C L 100 18 125/90 H 97 04/28/18 09:00 04/28/18 10:07 04/28/18 09:00 04/28/18 09:00 04/28/18 10:30 Oxygen Flow Rate (L/min) 2 Oxygen Delivery Method Room Air Weight: 87.3 kg Body Mass Index (BMI) 26.1 Finger Stick Blood Glucose 119 Laboratory Tests Past 24 Hrs 04/28/18 04/28/18 04/28/18 06:55 06:55 06:55 WBC 6.7 RBC 4.48 L Hgb 13.6 Hct 39.6 L MCV 88.4 MCH 30.4 MCHC 34.3 RDW 12.9 RDW Differential 41.4 Plt Count 164 MPV 9.6 Immature Gran % (Auto) 0.100 Neut % (Auto) 62.2 Lymph % (Auto) 27.5 [place] % (Auto) 6.8 Eos % (Auto) 3.1 Baso % (Auto) 0.3 Absolute Neuts (auto) 4.2 Absolute Lymphs (auto) 1.85 Total Counted Not Reportable Specimen Type Sample Site pH Bicarbonate Actual POC Total CO2 Base Excess O2 Saturation ABG pCO2 ABG pO2 Sami Test O2 Delivery Device Liter Flow Blood Gas Notified Whom Blood Gas Notified Time Sodium 141 Potassium 4.3 Chloride 107 Carbon Dioxide 25.0 Anion Gap 9 BUN 18 Creatinine 1.15 Estim Creat Clear Calc 93.72 Est GFR (MDRD) Af Amer 90 Est GFR (MDRD) Non-Af 75 BUN/Creatinine Ratio 15.7 Glucose 238 H Calcium 8.4 L Troponin I 0.028 B-Natriuretic Peptide 604.2 H Urine Opiates Screen Urine Methadone Screen Ur Barbiturates Screen Ur Phencyclidine Scrn Ur Amphetamines Screen U Methamphetamin-MDMA U Benzodiazepines Scrn Urine Cocaine Screen U Cannabinoids Screen Ur Drug Screen Comment 04/28/18 04/28/18 04/28/18 07:35 08:35 09:55 WBC RBC Hgb Hct MCV MCH MCHC RDW RDW Differential Plt Count MPV Immature Gran % (Auto) Neut % (Auto) Lymph % (Auto) [place] % (Auto) Eos % (Auto) Baso % (Auto) Absolute Neuts (auto) Absolute Lymphs (auto) Total Counted Specimen Type ART Sample Site L Radial pH 7.36 Bicarbonate Actual 23.4 POC Total CO2 25 Base Excess -2 O2 Saturation 97 ABG pCO2 41.1 ABG pO2 97 Sami Test POS O2 Delivery Device Nasal Can Liter Flow 2.0 Blood Gas Notified Whom ED Blood Gas Notified Time 730 Sodium Potassium Chloride Carbon Dioxide Anion Gap BUN Creatinine Estim Creat Clear Calc Est GFR (MDRD) Af Amer Est GFR (MDRD) Non-Af BUN/Creatinine Ratio Glucose Calcium Troponin I 1.210 H* B-Natriuretic Peptide Urine Opiates Screen NEGATIVE Urine Methadone Screen NEGATIVE Ur Barbiturates Screen NEGATIVE Ur Phencyclidine Scrn NEGATIVE Ur Amphetamines Screen POSITIVE H U Methamphetamin-MDMA NEGATIVE U Benzodiazepines Scrn NEGATIVE Urine Cocaine Screen NEGATIVE U Cannabinoids Screen POSITIVE H Ur Drug Screen Comment POC Glucose 04/28/18 06:50 POC Glucose 232 H Assessment/Plan All Active Problems (Last Reviewed 03/12/18 @ 10:47 by Savanna Dave) HFrEF (heart failure with reduced ejection fraction) (Acute) Elevated troponin (Acute) Acute on chronic systolic CHF (congestive heart failure) (Resolved) Hypomagnesemia (Resolved) 1. Acute heart failure with reduced ejection fraction * Ejection fraction is 15% from echocardiogram on 03/27 * Continue with IV Lasix * Continue spironolactone and losartan. * Carvedilol will be held given the recent cocaine ingestion 2. Elevated troponins * Could be related with demand ischemia from the CHF but could also be related with a primary coronary event given his history of ischemic heart disease but also could be related with the vasospasm given the cocaine and amphetamine ingestion. * Patient will be started on the weight-based Lovenox * Cardiology consultation * Continue aspirin 3. Polysubstance abuse * This is been long-standing problem for the patient * Given the cocaine ingestion will beta-blockers for now 4. Diabetes mellitus type 2 * Continue with his basal insulin plus sliding scale 5. DVT prophylaxis with anticoagulation Code Visit Inpatient E&M: 26230 Init Hosp L2
[2018-04-28 11:46] LABS: Bedside Glucose 167 mg/dL (70-110)
[2018-04-28] MEDS: Enoxaparin 100 MG/ML Syringe 90 MG SC ×2 (12:38→20:42)
--- NOTE | 2018-04-28 14:00 | PCM.CONS.C ---
Problem List (1) Elevated troponin Status: Acute (2) CAD (coronary artery disease) Status: Chronic Qualifiers: Coronary Disease-Associated Artery/Lesion type: [place] artery [place] vs. transplanted heart: [place] heart (3) History of coronary artery stent placement Status: Chronic Comment: PCI-MEHRDAD-LAD 08/2014, [id number]-Mid CX and Prox-Mid RCA 03/18/15, Thrombosis of CX stent 03/25/15 (4) Ischemic cardiomyopathy Status: Chronic Comment: EF 20% per echo 08/08/2016 (5) HFrEF (heart failure with reduced ejection fraction) Status: Acute Qualifiers: Heart failure chronicity: acute on chronic Qualified Code(s): I50.23 - Acute on chronic systolic (congestive) heart failure (6) Presence of automatic implantable cardioverter-defibrillator Status: Chronic Comment: SICD per Dr Berry @ [facility] (7) Hyperlipidemia Status: Chronic (8) Hypertension Status: Chronic (9) Type 2 diabetes mellitus Status: Chronic (10) Polysubstance abuse Status: Chronic Comment: marijuana, cocaine Reason for Consult Date of Consultation: 04/28/18 History of Present Illness: The patient is a 42 year old -[place] male who presents for concerns of altered mental status in the setting of polysubstance abuse reported compatible with cocaine, amphetamines, and marijuana, superimposed upon a history of underlying premature CAD, status post PCI, ischemic mediated cardiomyopathy, chronic systolic mediated CHF, status post subcutaneous ICD placement, superimposed on hyperlipidemia, hypertension, diabetes mellitus. According to an acquaintance of the patient he was reported yesterday evening as being somewhat more lethargic and complaining of a headache as well as potentially chest discomfort and shortness of breath. The patient reportedly took aspirin x3 at home. He was then brought to the emergency department for further evaluation and care. There he was found to have evidence of polysubstance abuse. There was concern of his cardiovascular status. An initial troponin I levels was performed which was negative. It repeated and became positive. A chest x-ray was performed which was reported as demonstrating evidence of increased pulmonary vascularity. He was placed in the PCU for further evaluation and care. At the present time he remains lethargic. He does respond to verbal stimuli but quickly becomes lethargic again. He does not appear to be voicing any acute complaints at this time. There is been no report of abrupt loss of consciousness or obvious ICD discharge. He had an ECG performed which demonstrated sinus rhythm with left axis deviation with possible left atrial enlargement, left anterior fascicular block, and poor R wave progression with anteroseptal WA pattern of indeterminate age. [] Past Medical History Allergies/Adverse Reactions: Allergies No Known Allergies Allergy (Verified 04/28/18 06:37) Home Medications: Ambulatory Orders Medication Instructions Recorded Magnesium Oxide [Mag-Ox 400] 400 mg PO DAILYCM #30 tab 08/08/16 Spironolactone [Aldactone] 25 mg PO DAILY #30 tab 08/08/16 Insulin Glargine,Hum.rec.anlog 14 unit SQ DAILY 04/09/17 [Basaglar Kwikpen U-100] alprazolam 1 mg tablet 1 mg PO PRN PRN 30 Days #60 07/12/17 hydrocodone 10 mg-acetaminophen 1 tab PO PRN PRN 30 Days #120 07/12/17 325 mg tablet sennosides 8.6 mg tablet 8.6 mg PO BID PRN 08/11/17 Hydrocodone Bitart/Apap 5-325 1 tab PO Q6H PRN PRN 2 Days #6 tab 10/24/17 [[place] 5/325] Aspirin E.C. [Ecotrin] 81 mg PO DAILY@0800 #30 tablet 03/29/18 Clopidogrel Bisulfate [Plavix] 75 mg PO DAILY #30 tablet 03/29/18 Gabapentin [Neurontin] 800 mg PO BIDCM #60 tablet 03/29/18 Sertraline HCl [Zoloft] 1 tab PO DAILY #30 tablet 03/29/18 Atorvastatin Calcium [Lipitor] 40 mg PO BID 04/28/18 Carvedilol 3.125 mg PO BID 04/28/18 Furosemide [Lasix] 40 mg PO BID 04/28/18 Losartan Potassium [Cozaar] 25 mg PO DAILY 04/28/18 Potassium Chloride [Klor-Con] 10 meq PO DAILY 04/28/18 Past Medical History (Chronic Problems): Chronic Problems (Last Reviewed 04/28/18 @ 11:18 by Bro Hewitt DO) CAD (coronary artery disease) (Chronic) Severe left ventricular systolic dysfunction (Chronic) Polysubstance abuse (Chronic) marijuana, cocaine 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/28/17) SICD per Dr Berry @ [facility] Nicotine dependence (Chronic) Old myocardial infarction (Chronic) Hypertension (Chronic) History of coronary artery stent placement (Chronic) PCI-MEHRDAD-LAD 08/2014, [id number]-Mid CX and Prox-Mid RCA 03/18/15, Thrombosis of CX stent 03/25/15 Atherosclerosis of coronary artery of [place] heart without angina pectoris (Chronic) PCI-MEHRDAD-LAD 08/2014, [id number]-Mid CX and Prox-Mid RCA 03/18/15, Thrombosis of CX stent 03/25/15 Ischemic cardiomyopathy (Chronic) EF 20% per echo 08/08/2016 Hyperlipidemia (Chronic) Type 2 diabetes mellitus (Chronic) Chronic systolic CHF (congestive heart failure) (Chronic) Surgical History: - - Cardiac stent August 2014 Psychiatric History: Depression - *Family History Paternal Family History: Family History (Last Reviewed 04/28/18 @ 11:18 by Bro Hewitt DO) Mother CAD (coronary artery disease) Diabetes Hypertension Myocardial infarction Father CAD (coronary artery disease) Diabetes Hypertension Myocardial infarction Brother Hypertension History Items: - - Denies paternal cardiac history Maternal Family History: Family History (Last Reviewed 04/28/18 @ 11:18 by Bro Hewitt DO) Mother CAD (coronary artery disease) Diabetes Hypertension Myocardial infarction Father CAD (coronary artery disease) Diabetes Hypertension Myocardial infarction Brother Hypertension History Items: Heart Disease Smoking Status: Current every day smoker Drugs: Cocaine, Marijuana, - - Amphetamines Review of Systems - Review of Systems Cardiovascular: Reports: Chest Discomfort, Shortness of Breath. Denies: Orthopnea, PND, Peripheral Edema, Palpitations, Lightheadedness, Dizziness, Near Syncope, Syncope Respiratory: Reports: Shortness of Breath Subjectve: Is 42-year-old -[place] male who appears to be lethargic at this time. Objective: Vital Signs Temp Pulse Resp BP Pulse Ox 97.3 F L 101 H 18 125/90 H 97 04/28/18 09:00 04/28/18 11:01 04/28/18 09:00 04/28/18 09:00 04/28/18 10:30 Oxygen Flow Rate (L/min) 2 Oxygen Delivery Method Room Air Weight: 192 lb 7.417 oz Body Mass Index (BMI) 26.1 Finger Stick Blood Glucose 119 Intake and Output for Last 24 Hours 04/26/18 04/27/18 04/28/18 23:59 23:59 23:59 Intake Total 480 / 480 Balance 480 / 480 General: Lethargic HEENT: Atraumatic, Normocephalic Neck: Supple Lungs: Rhonchi Cardiovascular: Regular Rhythm, Normal S1, Normal S2 Abdomen: Bowel Sounds Present, Soft, Non Tender Extremities: No edema 04/28/18 06:55: WBC 6.7, RBC 4.48 L, Hgb 13.6, Hct 39.6 L, MCV 88.4, MCH 30.4, MCHC 34.3, RDW 12.9, RDW Differential 41.4, Plt Count 164, MPV 9.6, Immature Gran % (Auto) 0.100, Neut % (Auto) 62.2, Lymph % (Auto) 27.5, [place] % (Auto) 6.8, Eos % (Auto) 3.1, Baso % (Auto) 0.3, Absolute Neuts (auto) 4.2, Total Counted Not Reportable 04/28/18 06:55: Sodium 141, Potassium 4.3, Chloride 107, Carbon Dioxide 25.0, Anion Gap 9, BUN 18, Creatinine 1.15, Est GFR (MDRD) Af Amer 90, Est GFR (MDRD) Non-Af 75, BUN/Creatinine Ratio 15.7, Glucose 238 H, Calcium 8.4 L, Troponin I 0.028 04/28/18 06:55: B-Natriuretic Peptide 604.2 H 04/28/18 07:35: pH 7.36, Bicarbonate Actual 23.4, POC Total CO2 25, Base Excess -2, O2 Saturation 97, ABG pCO2 41.1, ABG pO2 97, Sami Test POS 04/28/18 09:55: Troponin I 1.210 H* 04/28/18 13:15: Troponin I 2.260 H* Rhythm: Sinus rhythm EKG: As noted above ECHO: 03/27/2018 Severely dilated left ventricle with severe segmental left ventricular systolic dysfunction with an estimated LVEF of 15%; mildly dilated right ventricle with mild global right ventricular systolic dysfunction; severe left atrial enlargement; mild diffuse mitral valve thickening with mild papillary muscle dysfunction with mild MR; mild to moderate TR; mild focal aortic valve thickening; trivial MI; estimated RV systolic pressure 73 mmHg compatible with severe pulmonary hypertension; ICD lead in the right atrium/right ventricle Stress Test: 08/17/2016: Stress nuclear imaging study: Findings compatible with an extensive basal to mid inferior infarct and inferior apical infarct with a reported LVEF of 23% Cardiac Cath: 03/25/2015: Left main coronary artery reported as no significant disease; LAD reported as a proximal to mid stent with distal 30-40% stenosis in the mid to distal LAD; LCx reported as occluded; RCA reported as a large dominant vessel with a proximal stent which was patent with right to left collateralization to the LCx system ICD: 06/28/2017: [facility]: Subcutaneous ICD: Generator pulse SICD Emblm MRI: Model 8219: Serial number: [id number]: 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 Non-ST segment elevation WA The patient has laboratory findings compatible with abnormal troponin I levels compatible with a non-ST segment elevation WA. It is unclear whether this is a primary acute coronary syndrome event, and event related to his illicit drug use especially cocaine with respect to coronary artery vasospasm, etc., or a type II supply demand mismatch event secondary to his noncardiovascular issues superimposed upon his underlying CAD and ischemic mediated cardiomyopathy. At the present time he is being monitored. His cardiac enzymes will be followed. His ECG will be followed. He recently underwent transthoracic echocardiogram with the findings as noted above. He may eventually need repeat evaluation in the cardiac catheterization laboratory for possible redo PCI. However in the interim he will continue medical management. His beta blockers are on hold at this time secondary to the concern of recent cocaine use and possible coronary artery vasospasm. He also needs to improve from his noncardiac condition with respect to his polysubstance use and concerns of also possible acute on chronic CHF and he has lethargy of uncertain etiology prior to proceeding with additional invasive evaluation care barring and unforeseen urgent/emergent event. 2. CAD status post PCI The patient has undergone previous PCI as noted above. He will need to continue his cardiovascular monitoring, medical therapy, and proceed with additional evaluation care as deemed appropriate. 3. Ischemic mediated cardiomyopathy The patient has a severely dysfunctional left ventricle was described. He will need to continue medical management. 4. Chronic systolic CHF The patient may have acute on chronic systolic CHF. Again it is unclear whether this is secondary to an acute coronary syndrome event, but his illicit drug use, superimposed upon his ischemic mediated cardiomyopathy or whether this is an acute on chronic CHF event separate from the aforementioned issues. The present time he has been evaluated noninvasively by history, examination, and radiologic studies. He is continuing to be monitored. He will continue medical therapy. This does include diuretic therapy. Hopefully this will help improve his underlying volume status. 5. Subcutaneous ICD The patient has a left-sided subcutaneous ICD. This can be interrogated as deemed appropriate. He will be monitored for any obvious evidence of his ICD use/discharge. 6. Hyperlipidemia The patient will continue lipid-lowering therapy. 7. Hypertension The patient's blood pressure will be followed. He will continue medical management. 8. Diabetes mellitus The patient will continue evaluation care per internal medicine. 9. Polysubstance abuse Per the medical records the patient reportedly was involved with cocaine use and has toxicology noted positive for amphetamine use and cannabinoids use. The patient remains lethargic. Is unclear whether this is related to his polysubstance abuse. It may not be unreasonable as the patient is already been evaluated with basic laboratory studies, ABGs, etc. to obtain additional levels such as an ammonia level. The patient will need to be monitored for polysubstance abuse withdrawal. The patient continues under evaluation care for these concerns by internal medicine. Overall, from a cardiac standpoint, the patient will be monitored. He will continue noninvasive evaluation at this time. He will continue medical therapy as deemed appropriate. Again when his lethargy improves and hopefully his polysubstance abuse clears he can be considered for further cardiovascular evaluation as deemed appropriate. Comment: The patient's case has been previously reviewed with Dr. Hewitt. This note was generated using a voice recognition system and there may be incorrect words, spelling or punctuation that were not noted when reviewing the office note prior to saving.
--- NOTE | 2018-04-28 14:05 | CON.PCM_ITS ---
Problem List (1) Elevated troponin Status: Acute (2) CAD (coronary artery disease) Status: Chronic Qualifiers: Coronary Disease-Associated Artery/Lesion type: [place] artery [place] vs. transplanted heart: [place] heart (3) History of coronary artery stent placement Status: Chronic Comment: PCI-MEHRDAD-LAD 08/2014, XRU-BPN-Hkqx-Mid CX and Prox- Mid RCA 03/18/15, Thrombosis of CX stent 03/25/15 (4) Ischemic cardiomyopathy Status: Chronic Comment: EF 20% per echo 08/08/2016 (5) HFrEF (heart failure with reduced ejection fraction) Status: Acute Qualifiers: Heart failure chronicity: acute on chronic Qualified Code(s): I50.23 - Acute on chronic systolic (congestive) heart failure (6) Presence of automatic implantable cardioverter-defibrillator Status: Chronic Comment: SICD per Dr Berry @ [facility] (7) Hyperlipidemia Status: Chronic (8) Hypertension Status: Chronic (9) Type 2 diabetes mellitus Status: Chronic (10) Polysubstance abuse Status: Chronic Comment: marijuana, cocaine Reason for Consult Date of Consultation: 04/28/18 History of Present Illness: The patient is a 42 year old -[place] male who presents for concerns of altered mental status in the setting of polysubstance abuse reported compatible with cocaine, amphetamines, and marijuana, superimposed upon a history of underlying premature CAD, status post PCI, ischemic mediated cardiomyopathy, chronic systolic mediated CHF, status post subcutaneous ICD placement, superimposed on hyperlipidemia, hypertension, diabetes mellitus. According to an acquaintance of the patient he was reported yesterday evening as being somewhat more lethargic and complaining of a headache as well as potentially chest discomfort and shortness of breath. The patient reportedly took aspirin x3 at home. He was then brought to the emergency department for further evaluation and care. There he was found to have evidence of polysubstance abuse. There was concern of his cardiovascular status. An initial troponin I levels was performed which was negative. It repeated and became positive. A chest x-ray was performed which was reported as demonstrating evidence of increased pulmonary vascularity. He was placed in the PCU for further evaluation and care. At the present time he remains lethargic. He does respond to verbal stimuli but quickly becomes lethargic again. He does not appear to be voicing any acute complaints at this time. There is been no report of abrupt loss of consciousn ess or obvious ICD discharge. He had an ECG performed which demonstrated sinus rhythm with left axis deviation with possible left atrial enlargement, left anterior fascicular block, and poor R wave progression with anteroseptal LA pattern of indeterminate age. [] Past Medical History Allergies/Adverse Reactions: Allergies No Known Allergies Allergy (Verified 04/28/18 06:37) Home Medications: Ambulatory Orders Medication Instructions Recorded Magnesium Oxide [Mag-Ox 400] 400 mg PO DAILYCM #30 tab 08/08/16 Spironolactone [Aldactone] 25 mg PO DAILY #30 tab 08/08/16 Insulin Glargine,Hum.rec.anlog 14 unit SQ DAILY 04/09/17 [Basaglar Kwikpen U-100] alprazolam 1 mg tablet 1 mg PO PRN PRN 30 Days #60 07/12/17 hydrocodone 10 mg-acetaminophen 1 tab PO PRN PRN 30 Days #120 07/12/17 325 mg tablet sennosides 8.6 mg tablet 8.6 mg PO BID PRN 08/11/17 Hydrocodone Bitart/Apap 5-325 1 tab PO Q6H PRN PRN 2 Days #6 tab 10/24/17 [[place] 5/325] Aspirin E.C. [Ecotrin] 81 mg PO DAILY@0800 #30 tablet 03/29/18 Clopidogrel Bisulfate [Plavix] 75 mg PO DAILY #30 tablet 03/29/18 Gabapentin [Neurontin] 800 mg PO BIDCM #60 tablet 03/29/18 Sertraline HCl [Zoloft] 1 tab PO DAILY #30 tablet 03/29/18 Atorvastatin Calcium [Lipitor] 40 mg PO BID 04/28/18 Carvedilol 3.125 mg PO BID 04/28/18 Furosemide [Lasix] 40 mg PO BID 04/28/18 Losartan Potassium [Cozaar] 25 mg PO DAILY 04/28/18 Potassium Chloride [Klor-Con] 10 meq PO DAILY 04/28/18 Past Medical History (Chronic Problems): Chronic Problems (Last Reviewed 04/28/18 @ 11:18 by Bro Hewitt DO) CAD (coronary artery disease) (Chronic) Severe left ventricular systolic dysfunction (Chronic) Polysubstance abuse (Chronic) marijuana, cocaine 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/28/17) SICD [facility] Dr [facility] Nicotine dependence (Chronic) Old myocardial infarction (Chronic) Hypertension (Chronic) History of coronary artery stent placement (Chronic) PCI-MEHRDAD-LAD 08/2014, DIW-EIT-Faui-Mid CX and Prox-Mid RCA 03/18/15, Thrombosis of CX stent 03/25/15 Atherosclerosis of coronary artery of [place] heart without angina pectoris (Chronic) PCI-MEHRDAD-LAD 08/2014, [id number]-[id number]-Pmxr-Mid CX and Prox-Mid RCA 03/18/15, Thrombosis of CX stent 03/25/15 Ischemic cardiomyopathy (Chronic) EF 20% per echo 08/08/2016 Hyperlipidemia (Chronic) Type 2 diabetes mellitus (Chronic) Chronic systolic CHF (congestive heart failure) (Chronic) Surgical History: - - Cardiac stent August 2014 Psychiatric History: Depression - *Family History Paternal Family History: Family History (Last Reviewed 04/28/18 @ 11:18 by Bro Hewitt DO) Mother CAD (coronary artery disease) Diabetes Hypertension Myocardial infarction Father CAD (coronary artery disease) Diabetes Hypertension Myocardial infarction Brother Hypertension History Items: - - Denies paternal cardiac history Maternal Family History: Family History (Last Reviewed 04/28/18 @ 11:18 by Bro Hewitt DO) Mother CAD (coronary artery disease) Diabetes Hypertension Myocardial infarction Father CAD (coronary artery disease) Diabetes Hypertension Myocardial infarction Brother Hypertension History Items: Heart Disease Smoking Status: Current every day smoker Drugs: Cocaine, Marijuana, - - Amphetamines Review of Systems - Review of Systems Cardiovascular: Reports: Chest Discomfort, Shortness of Breath. Denies: Orthopnea, PND, Peripheral Edema, Palpitations, Lightheadedness, Dizziness, Near Syncope, Syncope Respiratory: Reports: Shortness of Breath Subjectve: Is 42-year-old -[place] male who appears to be lethargic at this time. Objective: Vital Signs Temp Pulse Resp BP Pulse Ox 97.3 F L 101 H 18 125/90 H 97 04/28/18 09:00 04/28/18 11:01 04/28/18 09:00 04/28/18 09:00 04/28/18 10:30 Oxygen Flow Rate (L/min) 2 Oxygen Delivery Method Room Air Weight: 192 lb 7.417 oz Body Mass Index (BMI) 26.1 Finger Stick Blood Glucose 119 Intake and Output for Last 24 Hours 04/26/18 04/27/18 04/28/18 23:59 23:59 23:59 Intake Total 480 / 480 Balance 480 / 480 General: Lethargic HEENT: Atraumatic, Normocephalic Neck: Supple Lungs: Rhonchi Cardiovascular: Regular Rhythm, Normal S1, Normal S2 Abdomen: Bowel Sounds Present, Soft, Non Tender Extremities: No edema 04/28/18 06:55: WBC 6.7, RBC 4.48 L, Hgb 13.6, Hct 39.6 L, MCV 88.4, MCH 30.4, MCHC 34.3, RDW 12.9, RDW Differential 41.4, Plt Count 164, MPV 9.6, Immature Gran % (Auto) 0.100, Neut % (Auto) 62.2, Lymph % (Auto) 27.5, Brooke % (Auto) 6.8, Eos % (Auto) 3.1, Baso % (Auto) 0.3, Absolute Neuts (auto) 4.2, Total Counted Not Reportable 04/28/18 06:55: Sodium 141, Potassium 4.3, Chloride 107, Carbon Dioxide 25.0, Anion Gap 9, BUN 18, Creatinine 1.15, Est GFR (MDRD) Af Amer 90, Est GFR (MDRD) Non-Af 75, BUN/Creatinine Ratio 15.7, Glucose 238 H, Calcium 8.4 L, Troponin I 0.028 04/28/18 06:55: B-Natriuretic Peptide 604.2 H 04/28/18 07:35: pH 7.36, Bicarbonate Actual 23.4, POC Total CO2 25, Base Excess -2, O2 Saturation 97, ABG pCO2 41.1, ABG pO2 97, Sami Test POS 04/28/18 09:55: Troponin I 1.210 H* 04/28/18 13:15: Troponin I 2.260 H* Rhythm: Sinus rhythm EKG: As noted above ECHO: 03/27/2018 Severely dilated left ventricle with severe segmental left ventricular systolic dysfunction with an estimated LVEF of 15%; mildly dilated right ventricle with mild global right ventricular systolic dysfunction; severe left atrial enlargement; mild diffuse mitral valve thickening with mild papillary muscle dysfunction with mild MR; mild to moderate TR; mild focal aortic valve thickening; trivial AK; estimated RV systolic pressure 73 mmHg compatible with severe pulmonary hypertension; ICD lead in the right atrium/right ventricle Stress Test: 08/17/2016: Stress nuclear imaging study: Findings compatible with an extensive basal to mid inferior infarct and inferior apical infarct with a reported LVEF of 23% Cardiac Cath: 03/25/2015: Left main coronary artery reported as no significant disease; LAD reported as a proximal to mid stent with distal 30-40% stenosis in the mid to distal LAD; LCx reported as occluded; RCA reported as a large dominant vessel with a proximal stent which was patent with right to left collateralization to the LCx system ICD: 06/28/2017: [facility]: Subcutaneous ICD: Generator pulse SICD Emb MRI: Model 8219: Serial number: [id number]: Non Cdl Driver: [employer] SIC CRM CXR: Status post subcutaneous ICD placement; increased pulmonary vascularity Assessment/Plan 1. Non-ST segment elevation LA The patient has laboratory findings compatible with abnormal troponin I levels compatible with a non-ST segment elevation LA. It is unclear whether this is a primary acute coronary syndrome event, and event related to his illicit drug use especially cocaine with respect to coronary artery vasospasm, etc., or a type II supply demand mismatch event secondary to his noncardiovascular issues superimposed upon his underlying CAD and ischemic mediated cardiomyopathy. At the present time he is being monitored. His cardiac enzymes will be followed. His ECG will be followed. He recently underwent transthoracic echocardiogram with the findings as noted above. He may eventually need repeat evaluation in the cardiac catheterization laboratory for possible redo PCI. However in the interim he will continue medical management. His beta blockers are on hold at this time secondary to the concern of recent cocaine use and possible coronary artery vasospasm. He also needs to improve from his noncardiac condition with respect to his polysubstance use and concerns of also possible acute on chronic CHF and he has lethargy of uncertain etiology prior to proceeding with additional invasive evaluation care barring and unforeseen urgent/emergent event. 2. CAD status post PCI The patient has undergone previous PCI as noted above. He will need to continue his cardiovascular monitoring, medical therapy, and proceed with additional evaluation care as deemed appropriate. 3. Ischemic mediated cardiomyopathy The patient has a severely dysfunctional left ventricle was described. He will need to continue medical management. 4. Chronic systolic CHF The patient may have acute on chronic systolic CHF. Again it is unclear whether this is secondary to an acute coronary syndrome event, but his illicit drug use, superimposed upon his ischemic mediated cardiomyopathy or whether this is an acute on chronic CHF event separate from the aforementioned issues. The present time he has been evaluated noninvasively by history, examination, and radiologic studies. He is continuing to be monitored. He will continue medical therapy. This does include diuretic therapy. Hopefully this will help improve his underlying volume status. 5. Subcutaneous ICD The patient has a left-sided subcutaneous ICD. This can be interrogated as deemed appropriate. He will be monitored for any obvious evidence of his ICD use/discharge. 6. Hyperlipidemia The patient will continue lipid-lowering therapy. 7. Hypertension The patient's blood pressure will be followed. He will continue medical management. 8. Diabetes mellitus The patient will continue evaluation care per internal medicine. 9. Polysubstance abuse Per the medical records the patient reportedly was involved with cocaine use and has toxicology noted positive for amphetamine use and cannabinoids use. The patient remains lethargic. Is unclear whether this is related to his polysubstance abuse. It may not be unreasonable as the patient is already been evaluated with basic laboratory studies, ABGs, etc. to obtain additional levels such as an ammonia level. The patient will need to be monitored for polysubstance abuse withdrawal. The patient continues under evaluation care for these concerns by internal medicine. Overall, from a cardiac standpoint, the patient will be monitored. He will continue noninvasive evaluation at this time. He will continue medical therapy as deemed appropriate. Again when his lethargy improves and hopefully his polysubstance abuse clears he can be considered for further cardiovascular evaluation as deemed appropriate. Comment: The patient's case has been previously reviewed with Dr. Hewitt. This note was generated using a voice recognition system and there may be incorrect words, spelling or punctuation that were not noted when reviewing the office note prior to saving.
[2018-04-28 15:10] LABS: AST(SGOT) 42 U/L (15-37); Alanine Aminotransfer ALT/SGPT 81 U/L (16-61); Albumin, Serum 3.5 g/dL (3.2-5.0); Alkaline Phosphatase 103 U/L (45-117); Bilirubin, Direct 0.18 mg/dL (0.00-0.30); Globulin 3.2 g/dL (2.2-4.2); Protein, Total 6.7 g/dL (6.4-8.2)
[2018-04-28] MEDS: Lactulose 20 GM/30 ML UDC 10 GM PO (16:35)
[2018-04-28] MEDS: Insulin Lispro 100 UNIT/ML INSULN.PEN SQ (16:38)
[2018-04-28] MEDS: HYDROcodone Bitartrate/Apap 5/325 Tablet PO (16:42)
[2018-04-28 16:50] LABS: Bedside Glucose 226 mg/dL (70-110)
[2018-04-28] MEDS: Nitroglycerin Oint 1 INCH PACKET TRANSDERM. (18:12)
[2018-04-28] MEDS: Atorvastatin Calcium 40 MG Tablet PO (20:42)
[2018-04-28 22:15] LABS: Bedside Glucose 202 mg/dL (70-110)
[2018-04-29] VITALS (14 sets, daily range): BP systolic 110–138; BP diastolic 72–99; PULSE 48–110; RESP 16–18; TEMP 36.3–36.4; O2SAT 94–100
[2018-04-29] MEDS: Nitroglycerin Oint 1 INCH PACKET TRANSDERM. ×2 (00:11→17:20)
[2018-04-29] MEDS: HYDROcodone Bitartrate/Apap 5/325 Tablet PO ×3 (00:12→17:20)
--- NOTE | 2018-04-29 05:55 | EKG12_ITS ---
Test Reason : AM EKG Blood Pressure : / mmHG Vent. Rate : 103 BPM Atrial Rate : 103 BPM P-R Int : 158 ms QRS Dur : 102 ms QT Int : 364 ms P-R-T Axes : 061 -53 093 degrees QTc Int : 476 ms Sinus tachycardia with occasional Premature ventricular complexes Possible Left atrial enlargement Left anterior fascicular block Anteroseptal infarct , age undetermined T wave abnormality, consider lateral ischemia Abnormal ECG Confirmed by KATRINA MCKEON, SAMANTHA ([id number]), assignment desk editor EDELMIRA RIVAS ([id number]) on 05/02/2018 3:05:27 PM Referred By: DR SERRANO Confirmed By:SAMANTHA HERNDON MD
[2018-04-29 06:52] LABS: Bedside Glucose 233 mg/dL (70-110)
[2018-04-29 07:22] LABS: Magnesium 1.8 mg/dL (1.6-2.6)
[2018-04-29] MEDS: Magnesium Oxide 400 MG Tablet PO (07:58)
[2018-04-29] MEDS: Gabapentin 800 MG Tablet PO ×2 (07:58→17:13)
[2018-04-29] MEDS: Aspirin E.C. 81 MG Tablet PO (07:58)
[2018-04-29] MEDS: Clopidogrel Bisulfate 75 MG Tablet PO (08:02)
[2018-04-29] MEDS: Spironolactone 25 MG Tablet PO (08:03)
[2018-04-29] MEDS: Sertraline 50 MG Tablet PO (08:03)
[2018-04-29] MEDS: Losartan Potassium 25 MG Tablet PO (08:03)
[2018-04-29] MEDS: Enoxaparin 100 MG/ML Syringe 90 MG SC ×2 (08:03→21:58)
[2018-04-29] MEDS: Atorvastatin Calcium 40 MG Tablet PO ×2 (08:03→21:58)
[2018-04-29] MEDS: Furosemide 40 MG/4 ML Vial IV ×2 (08:04→17:21)
[2018-04-29] MEDS: Insulin Lispro 100 UNIT/ML INSULN.PEN SQ ×3 (08:04→17:14)
[2018-04-29] MEDS: 0.9% NaCl Peripheral Flush Adult/Peds IV ×2 (08:12→17:24)
[2018-04-29 10:04] LABS: Anion Gap 9 (5-15); BUN 14 mg/dL (7-18); BUN/Creat Ratio 13.9 RATIO (10-20); Calcium,Total 8.8 mg/dL (8.5-10.1); Chloride 102 mmol/L (98-107); Creatinine, Serum 1.01 mg/dL (0.70-1.30); EST Glomerular Filtration Rate 87 mL/min (>60); Est Glom Filt Rate - Afr Amer 105 mL/min (>60); Estimated Creatinine Clearance 106.71 ml/min; Glucose 169 mg/dL (74-106); Potassium 3.4 mmol/L (3.5-5.1); Sodium Level 139 mmol/L (136-145)
--- NOTE | 2018-04-29 11:52 | PCM.PN.CARD ---
Subjectve: The patient appears to be more awake and alert today. He appears to be without ongoing chest pain. He believes his breathing has improved. Objective: Vital Signs Temp Pulse Resp BP Pulse Ox 97.3 F L 96 16 120/83 H 96 04/29/18 10:37 04/29/18 10:37 04/29/18 10:37 04/29/18 10:37 04/29/18 10:37 Oxygen Flow Rate (L/min) 2 Oxygen Delivery Method Room Air Weight: 192 lb 7.417 oz Body Mass Index (BMI) 26.1 Finger Stick Blood Glucose 119 Intake and Output for Last 24 Hours 04/27/18 04/28/18 04/29/18 23:59 23:59 23:59 Intake Total 1820 / 1820 1200 / 1200 Balance 1820 / 1820 1200 / 1200 General: Awake, Alert, Oriented x 3, Cooperative HEENT: Atraumatic, Normocephalic, PERRL, EOMI Oral: Moist Mucosa Neck: Supple, Good ROM, No JVD Lungs: Rhonchi Cardiovascular: Regular Rhythm, Normal S1, Normal S2 Abdomen: Bowel Sounds Present, Soft, Non Tender Extremities: No edema Psych/Mental Status: Appropriate 04/28/18 09:55: Total Bilirubin 0.70, Direct Bilirubin 0.18 04/28/18 13:15: Troponin I 2.260 H* 04/29/18 00:55: Magnesium 1.8, Troponin I 4.220 H* 04/29/18 07:55: Sodium Cancelled, Potassium Cancelled, Chloride Cancelled, Carbon Dioxide Cancelled, Anion Gap Cancelled, BUN Cancelled, Creatinine Cancelled, Est GFR (MDRD) Af Amer Cancelled, Est GFR (MDRD) Non-Af Cancelled, BUN/Creatinine Ratio Cancelled, Glucose Cancelled, Calcium Cancelled 04/29/18 09:30: Sodium 139, Potassium 3.4 L, Chloride 102, Carbon Dioxide 28.0, Anion Gap 9, BUN 14, Creatinine 1.01, Est GFR (MDRD) Af Amer 105, Est GFR (MDRD) Non-Af 87, BUN/Creatinine Ratio 13.9, Glucose 169 H, Calcium 8.8 Rhythm: Sinus rhythm EKG: Sinus rhythm/sinus tachycardia; left axis deviation; left atrial enlargement; possible left anterior fascicular block; poor R wave progression; anteroseptal PA of indeterminate age; T wave abnormality potentially compatible with myocardial ischemia in the lateral distribution Medical Necessity - Tobacco Use Smoking Status: Current every day smoker Assessment/Plan 1. Non-ST segment elevation PA The patient has laboratory findings compatible with abnormal troponin I levels compatible with a non-ST segment elevation PA. It is unclear whether this is a primary acute coronary syndrome event, and event related to his illicit drug use especially cocaine with respect to coronary artery vasospasm, etc., or a type II supply demand mismatch event secondary to his noncardiovascular issues superimposed upon his underlying CAD and ischemic mediated cardiomyopathy. At the present time he is being monitored. His cardiac enzymes will be followed. His ECG will be followed. He recently underwent transthoracic echocardiogram with the findings as noted above. As he appears to be symptomatically improved he will be scheduled for upcoming diagnostic cardiac catheterization. However in the interim he will continue medical management. His beta blockers are on hold at this time secondary to the concern of recent cocaine use and possible coronary artery vasospasm. He also needs to improve from his noncardiac condition with respect to his polysubstance use and concerns of also possible acute on chronic CHF and he has lethargy of uncertain etiology prior to proceeding with additional invasive evaluation care barring and unforeseen urgent/emergent event. 2. CAD status post PCI The patient has undergone previous PCI as noted above. He will need to continue his cardiovascular monitoring, medical therapy, and proceed with additional evaluation care as deemed appropriate. 3. Ischemic mediated cardiomyopathy The patient has a severely dysfunctional left ventricle was described. He will need to continue medical management. 4. Chronic systolic CHF The patient may have acute on chronic systolic CHF. Again it is unclear whether this is secondary to an acute coronary syndrome event, but his illicit drug use, superimposed upon his ischemic mediated cardiomyopathy or whether this is an acute on chronic CHF event separate from the aforementioned issues. He will have medical management. He will have follow-up radiologic studies as well. 5. Subcutaneous ICD The patient has a left-sided subcutaneous ICD. This can be interrogated as deemed appropriate. He will be monitored for any obvious evidence of his ICD use/discharge. His ICD can be interrogated. 6. Hyperlipidemia The patient will continue lipid-lowering therapy. 7. Hypertension The patient's blood pressure will be followed. He will continue medical management. 8. Diabetes mellitus The patient will continue evaluation care per internal medicine. 9. Polysubstance abuse Per the medical records the patient reportedly was involved with cocaine use and has toxicology noted positive for amphetamine use and cannabinoids use. Comment: The patient's case has been discussed and reviewed with the patient. This note was generated using a voice recognition system and there may be incorrect words, spelling or punctuation that were not noted when reviewing the office note prior to saving.
--- NOTE | 2018-04-29 11:55 | PN.CARD_ITS ---
Subjectve: The patient appears to be more awake and alert today. He appears to be without ongoing chest pain. He believes his breathing has improved. Objective: Vital Signs Temp Pulse Resp BP Pulse Ox 97.3 F L 96 16 120/83 H 96 04/29/18 10:37 04/29/18 10:37 04/29/18 10:37 04/29/18 10:37 04/29/18 10:37 Oxygen Flow Rate (L/min) 2 Oxygen Delivery Method Room Air Weight: 192 lb 7.417 oz Body Mass Index (BMI) 26.1 Finger Stick Blood Glucose 119 Intake and Output for Last 24 Hours 04/27/18 04/28/18 04/29/18 23:59 23:59 23:59 Intake Total 1820 / 1820 1200 / 1200 Balance 1820 / 1820 1200 / 1200 General: Awake, Alert, Oriented x 3, Cooperative HEENT: Atraumatic, Normocephalic, PERRL, EOMI Oral: Moist Mucosa Neck: Supple, Good ROM, No JVD Lungs: Rhonchi Cardiovascular: Regular Rhythm, Normal S1, Normal S2 Abdomen: Bowel Sounds Present, Soft, Non Tender Extremities: No edema Psych/Mental Status: Appropriate 04/28/18 09:55: Total Bilirubin 0.70, Direct Bilirubin 0.18 04/28/18 13:15: Troponin I 2.260 H* 04/29/18 00:55: Magnesium 1.8, Troponin I 4.220 H* 04/29/18 07:55: Sodium Cancelled, Potassium Cancelled, Chloride Cancelled, Carb on Dioxide Cancelled, Anion Gap Cancelled, BUN Cancelled, Creatinine Cancelled, Est GFR (MDRD) Af Amer Cancelled, Est GFR (MDRD) Non-Af Cancelled, BUN/Creatinine Ratio Cancelled, Glucose Cancelled, Calcium Cancelled 04/29/18 09:30: Sodium 139, Potassium 3.4 L, Chloride 102, Carbon Dioxide 28.0, Anion Gap 9, BUN 14, Creatinine 1.01, Est GFR (MDRD) Af Amer 105, Est GFR (MDRD) Non-Af 87, BUN/Creatinine Ratio 13.9, Glucose 169 H, Calcium 8.8 Rhythm: Sinus rhythm EKG: Sinus rhythm/sinus tachycardia; left axis deviation; left atrial enlargement; possible left anterior fascicular block; poor R wave progression; anteroseptal MD of indeterminate age; T wave abnormality potentially compatible with myocardial ischemia in the lateral distribution Medical Necessity - Tobacco Use Smoking Status: Current every day smoker Assessment/Plan 1. Non-ST segment elevation MD The patient has laboratory findings compatible with abnormal troponin I levels compatible with a non-ST segment elevation MD. It is unclear whether this is a primary acute coronary syndrome event, and event related to his illicit drug use especially cocaine with respect to coronary artery vasospasm, etc., or a type II supply demand mismatch event secondary to his noncardiovascular issues superimposed upon his underlying CAD and ischemic mediated cardiomyopathy. At the present time he is being monitored. His cardiac enzymes will be followed. His ECG will be followed. He recently underwent transthoracic echocardiogram with the findings as noted above. As he appears to be symptomatically improved he will be scheduled for upcoming diagnostic cardiac catheterization. However in the interim he will continue medical management. His beta blockers are on hold at this time secondary to the concern of recent cocaine use and poss ible coronary artery vasospasm. He also needs to improve from his noncardiac condition with respect to his polysubstance use and concerns of also possible acute on chronic CHF and he has lethargy of uncertain etiology prior to proceeding with additional invasive evaluation care barring and unforeseen urgent/emergent event. 2. CAD status post PCI The patient has undergone previous PCI as noted above. He will need to continue his cardiovascular monitoring, medical therapy, and proceed with additional evaluation care as deemed appropriate. 3. Ischemic mediated cardiomyopathy The patient has a severely dysfunctional left ventricle was described. He will need to continue medical management. 4. Chronic systolic CHF The patient may have acute on chronic systolic CHF. Again it is unclear whether this is secondary to an acute coronary syndrome event, but his illicit drug use, superimposed upon his ischemic mediated cardiomyopathy or whether this is an acute on chronic CHF event separate from the aforementioned issues. He will have medical management. He will have follow-up radiologic studies as well. 5. Subcutaneous ICD The patient has a left-sided subcutaneous ICD. This can be interrogated as deemed appropriate. He will be monitored for any obvious evidence of his ICD use/discharge. His ICD can be interrogated. 6. Hyperlipidemia The patient will continue lipid-lowering therapy. 7. Hypertension The patient's blood pressure will be followed. He will continue medical management. 8. Diabetes mellitus The patient will continue evaluation care per internal medicine. 9. Polysubstance abuse Per the medical records the patient reportedly was involved with cocaine use and has toxicology noted positive for amphetamine use and cannabinoids use. Comment: The patient's case has been discussed and reviewed with the patient. This note was generated using a voice recognition system and there may be incorrect words, spelling or punctuation that were not noted when reviewing the office note prior to saving.
--- NOTE | 2018-04-29 12:07 | PCM.PN.HOSP ---
Patient Problems: Active and Suspected Problems (Last Reviewed 04/28/18 @ 11:18 by Bro Hewitt DO) HFrEF (heart failure with reduced ejection fraction) (Acute) Elevated troponin (Acute) Subjective: Feels good. Wants to go home. No chest pain. No shortness of breath. Vitals/I&O's: Vital Signs Temp Pulse Resp BP Pulse Ox 36.3 C L 96 16 120/83 H 96 04/29/18 10:37 04/29/18 10:37 04/29/18 10:37 04/29/18 10:37 04/29/18 10:37 Oxygen Flow Rate (L/min) 2 Oxygen Delivery Method Room Air Weight: 87.3 kg Body Mass Index (BMI) 26.1 Finger Stick Blood Glucose 119 Intake and Output for Last 24 Hours 04/27/18 04/28/18 04/29/18 23:59 23:59 23:59 Intake Total 1820 / 1820 1200 / 1200 Balance 1820 / 1820 1200 / 1200 General: Alert, Cooperative, No apparent distress, - - up at the side of the bed drawing a picture. HEENT: Atraumatic, Normocephalic Oral: Moist Mucosa, No Gingival or Mucosal Lesions/ Ulcerations Neck: No Nodes, Thyroid Normal Size and Texture Lungs: Clear to auscultation, Normal air movement, No rhonchi, No wheeze Cardiovascular: Regular rate, Regular Rhythm, Normal S1, Normal S2, No murmurs Abdomen: Bowel Sounds Present, Soft, Non Tender, Non-Distended, No Hepato-splenomegaly Extremities: No edema, No Calf Tenderness Psych/Mental Status: Normal Affect, Appropriate Laboratory Results 04/28/18 09:55: Total Bilirubin 0.70, Direct Bilirubin 0.18, AST 42 H, ALT 81 H, Alkaline Phosphatase 103, Total Protein 6.7, Albumin 3.5, Globulin 3.2 04/28/18 13:15: Troponin I 2.260 H* 04/28/18 14:25: Ammonia 36.0 H 04/28/18 16:34: POC Glucose 226 H 04/28/18 20:38: POC Glucose 202 H 04/29/18 00:55: Magnesium 1.8, Troponin I 4.220 H* 04/29/18 06:37: POC Glucose 233 H 04/29/18 07:55: Sodium Cancelled, Potassium Cancelled, Chloride Cancelled, Carbon Dioxide Cancelled, Anion Gap Cancelled, BUN Cancelled, Creatinine Cancelled, Estim Creat Clear Calc Cancelled, Est GFR (MDRD) Af Amer Cancelled, Est GFR (MDRD) Non-Af Cancelled, BUN/Creatinine Ratio Cancelled, Glucose Cancelled, Calcium Cancelled 04/29/18 09:30: Sodium 139, Potassium 3.4 L, Chloride 102, Carbon Dioxide 28.0, Anion Gap 9, BUN 14, Creatinine 1.01, Estim Creat Clear Calc 106.71, Est GFR (MDRD) Af Amer 105, Est GFR (MDRD) Non-Af 87, BUN/Creatinine Ratio 13.9, Glucose 169 H, Calcium 8.8 Current Medications Acetaminophen (Tylenol) 650 mg PO Q6H PRN PRN PRN Reason: Mild Pain (scale 0-3)/T>100.7 Hydrocodone Bitart/Acetaminophen ([place] 5mg-325mg) 1 tablet PO Q6H PRN PRN PRN Reason: PAIN Last Admin: 04/29/18 06:35 Dose: 1 tablet Aspirin (Ecotrin) 81 mg PO DAILY@0800 [facility] Last Admin: 04/29/18 07:58 Dose: 81 mg Atorvastatin Calcium (Lipitor) 40 mg PO BID [facility] Last Admin: 04/29/18 08:03 Dose: 40 mg Clopidogrel Bisulfate (Plavix) 75 mg PO DAILY [facility] Last Admin: 04/29/18 08:02 Dose: 75 mg Dextrose (D50w Syringe) 0 gm IV X1 PRN; Protocol PRN Reason: Hypoglycemia Enoxaparin Sodium (Lovenox) 90 mg 1 mg/kg (90 mg) SC Q12 [facility] Last Admin: 04/29/18 08:03 Dose: 90 mg Furosemide (Lasix) 40 mg IV BIDLX [facility] Last Admin: 04/29/18 08:04 Dose: 40 mg Gabapentin (Neurontin) 800 mg PO BIDCM [facility] Last Admin: 04/29/18 07:58 Dose: 800 mg Glucagon () 1 mg IM .X1 PRN PRN Reason: Hypoglycemia Sodium Chloride () 1,000 mls @ 0 mls/hr IV .Q0M [facility] Insulin Glargine (Lantus (Bkc)) 14 units SC DAILY [facility] Last Admin: 04/29/18 08:03 Dose: 14 u Insulin Human Lispro (Humalog Kwikpen (Bkc)) 0 unit SQ TIDAC [facility]; Protocol Last Admin: 04/29/18 11:24 Dose: 1 units Losartan Potassium (Cozaar) 25 mg PO DAILY [facility] Last Admin: 04/29/18 08:03 Dose: 25 mg Magnesium Hydroxide (Milk Of Magnesia) 30 ml PO DAILY PRN PRN Reason: Constipation [facility]Ox 400) [facility] Last Admin: 04/29/18 07:58 Dose: 400 mg Nitroglycerin (Nitrostat) 0.4 mg SUBLINGUAL Q5M PRN PRN Reason: CHEST PAIN Nitroglycerin (Nitrobid) 1 inch TRANSDERM. Q6 [facility] Last Admin: 04/29/18 06:36 Dose: Not Given Ondansetron HCl (Zofran) 4 mg IV Q8H PRN PRN PRN Reason: Nausea Potassium Chloride (K-Dur) 10 meq PO DAILY [facility] Last Admin: 04/29/18 08:03 Dose: 10 meq Senna (Senokot) 1 tablet PO BID PRN PRN Reason: Constipation Sertraline HCl (Zoloft) 50 mg PO DAILY [facility] Last Admin: 04/29/18 08:03 Dose: 50 mg Sodium Chloride () 5 - 15 ml IV UD PRN PRN Reason: SALINE FLUSH Last Admin: 04/29/18 08:12 Dose: 10 ml Spironolactone (Aldactone) 25 mg PO DAILY [facility] Last Admin: 04/29/18 08:03 Dose: 25 mg Medical Necessity - Tobacco Use Smoking Status: Current every day smoker Assessment/Plan All Active Problems (Last Reviewed 04/28/18 @ 11:18 by Bro Hewitt DO) HFrEF (heart failure with reduced ejection fraction) (Acute) Elevated troponin (Acute) Acute on chronic systolic CHF (congestive heart failure) (Resolved) Hypomagnesemia (Resolved) 1. Acute heart failure with reduced ejection fraction Ejection fraction is 15% from echocardiogram on 03/27 Continue with IV Lasix Continue spironolactone and losartan. Carvedilol will be held given the recent cocaine ingestion CXR pending. 2. Elevated troponins/NSTEMI Could be related with demand ischemia from the CHF but could also be related with a primary coronary event given his history of ischemic heart disease but also could be related with the vasospasm given the cocaine and amphetamine ingestion. Therepuetic lovenox, ASA, statin, plavix, losartan Cardiology following Continue aspirin [place] at the discretion of cardiology. 3. Polysubstance abuse This is been long-standing problem for the patient Given the cocaine ingestion will beta-blockers for now advised complete cessation of all drugs, including marijuana. 4. Diabetes mellitus type 2 Continue with his basal insulin plus sliding scale patient had a bottle of Sprite at his bedside table. He did not drink it because he was told not to. Advised diet Sprite and diet sodas, if he wants to drink sodas consult nutrition. 5. DVT prophylaxis with anticoagulation Code Visit Inpatient E&M: 02518 Subs Hosp L2
--- NOTE | 2018-04-29 12:12 | PN_ITS ---
Patient Problems: Active and Suspected Problems (Last Reviewed 04/28/18 @ 11:18 by Bro Hewitt DO) HFrEF (heart failure with reduced ejection fraction) (Acute) Elevated troponin (Acute) Subjective: Feels good. Wants to go home. No chest pain. No shortness of breath. Vitals/I&O's: Vital Signs Temp Pulse Resp BP Pulse Ox 36.3 C L 96 16 120/83 H 96 04/29/18 10:37 04/29/18 10:37 04/29/18 10:37 04/29/18 10:37 04/29/18 10:37 Oxygen Flow Rate (L/min) 2 Oxygen Delivery Method Room Air Weight: 87.3 kg Body Mass Index (BMI) 26.1 Finger Stick Blood Glucose 119 Intake and Output for Last 24 Hours 04/27/18 04/28/18 04/29/18 23:59 23:59 23:59 Intake Total 1820 / 1820 1200 / 1200 Balance 1820 / 1820 1200 / 1200 General: Alert, Cooperative, No apparent distress, - - up at the side of the bed drawing a picture. HEENT: Atraumatic, Normocephalic Oral: Moist Mucosa, No Gingival or Mucosal Lesions/ Ulcerations Neck: No Nodes, Thyroid Normal Size and Texture Lungs: Clear to auscultation, Normal air movement, No rhonchi, No wheeze Cardiovascular: Regular rate, Regular Rhythm, Normal S1, Normal S2, No murmurs Abdomen: Bowel Sounds Present, Soft, Non Tender, Non-Distended, No Hepato- splenomegaly Extremities: No edema, No Calf Tenderness Psych/Mental Status: Normal Affect, Appropriate Laboratory Results 04/28/18 09:55: Total Bilirubin 0.70, Direct Bilirubin 0.18, AST 42 H, ALT 81 H, Alkaline Phosphatase 103, Total Protein 6.7, Albumin 3.5, Globulin 3.2 04/28/18 13:15: Troponin I 2.260 H* 04/28/18 14:25: Ammonia 36.0 H 04/28/18 16:34: POC Glucose 226 H 04/28/18 20:38: POC Glucose 202 H 04/29/18 00:55: Magnesium 1.8, Troponin I 4.220 H* 04/29/18 06:37: POC Glucose 233 H 04/29/18 07:55: Sodium Cancelled, Potassium Cancelled, Chloride Cancelled, Carbon Dioxide Cancelled, Anion Gap Cancelled, BUN Cancelled, Creatinine Cancelled, Estim Creat Clear Calc Cancelled, Est GFR (MDRD) Af Amer Cancelled, Est GFR (MDRD) Non-Af Cancelled, BUN/Creatinine Ratio Cancelled, Glucose Cancelled, Calcium Cancelled 04/29/18 09:30: Sodium 139, Potassium 3.4 L, Chloride 102, Carbon Dioxide 28.0, Anion Gap 9, BUN 14, Creatinine 1.01, Estim Creat Clear Calc 106.71, Est GFR (MDRD) Af Amer 105, Est GFR (MDRD) Non-Af 87, BUN/Creatinine Ratio 13.9, Glucose 169 H, Calcium 8.8 Current Medications Acetaminophen (Tylenol) 650 mg PO Q6H PRN PRN PRN Reason: Mild Pain (scale 0-3)/T>100.7 Hydrocodone Bitart/Acetaminophen ([place] 5mg-325mg) 1 tablet PO Q6H PRN PRN PRN Reason: PAIN Last Admin: 04/29/18 06:35 Dose: 1 tablet Aspirin (Ecotrin) 81 mg PO DAILY@0800 [facility] Last Admin: 04/29/18 07:58 Dose: 81 mg Atorvastatin Calcium (Lipitor) 40 mg PO BID [facility] Last Admin: 04/29/18 08:03 Dose: 40 mg Clopidogrel Bisulfate (Plavix) 75 mg PO DAILY [facility] Last Admin: 04/29/18 08:02 Dose: 75 mg Dextrose (D50w Syringe) 0 gm IV X1 PRN; Protocol PRN Reason: Hypoglycemia Enoxaparin Sodium (Lovenox) 90 mg 1 mg/kg (90 mg) SC Q12 [facility] Last Admin: 04/29/18 08:03 Dose: 90 mg Furosemide (Lasix) 40 mg IV BIDLX [facility] Last Admin: 04/29/18 08:04 Dose: 40 mg Gabapentin (Neurontin) 800 mg PO BIDCM [facility] Last Admin: 04/29/18 07:58 Dose: 800 mg Glucagon () 1 mg IM .X1 PRN PRN Reason: Hypoglycemia Sodium Chloride () 1,000 mls @ 0 mls/hr IV .Q0M [facility] Insulin Glargine (Lantus (Bkc)) 14 units SC DAILY [facility] Last Admin: 04/29/18 08:03 Dose: 14 u Insulin Human Lispro (Humalog Kwikpen (Bkc)) 0 unit SQ TIDAC [facility]; Protocol Last Admin: 04/29/18 11:24 Dose: 1 units Losartan Potassium (Cozaar) 25 mg PO DAILY [facility] Last Admin: 04/29/18 08:03 Dose: 25 mg Magnesium Hydroxide (Milk Of Magnesia) 30 ml PO DAILY PRN PRN Reason: Constipation [facility] ([facility]Ox 400) [facility] Last Admin: 04/29/18 07:58 Dose: 400 mg Nitroglycerin (Nitrostat) 0.4 mg SUBLINGUAL Q5M PRN PRN Reason: CHEST PAIN Nitroglycerin (Nitrobid) 1 inch TRANSDERM. Q6 [facility] Last Admin: 04/29/18 06:36 Dose: Not Given Ondansetron HCl (Zofran) 4 mg IV Q8H PRN PRN PRN Reason: Nausea Potassium Chloride (K-Dur) 10 meq PO DAILY [facility] Last Admin: 04/29/18 08:03 Dose: 10 meq Senna (Senokot) 1 tablet PO BID PRN PRN Reason: Constipation Sertraline HCl (Zoloft) 50 mg PO DAILY [facility] Last Admin: 04/29/18 08:03 Dose: 50 mg Sodium Chloride () 5 - 15 ml IV UD PRN PRN Reason: SALINE FLUSH Last Admin: 04/29/18 08:12 Dose: 10 ml Spironolactone (Aldactone) 25 mg PO DAILY [facility] Last Admin: 04/29/18 08:03 Dose: 25 mg Medical Necessity - Tobacco Use Smoking Status: Current every day smoker Assessment/Plan All Active Problems (Last Reviewed 04/28/18 @ 11:18 by Bro Hewitt DO) HFrEF (heart failure with reduced ejection fraction) (Acute) Elevated troponin (Acute) Acute on chronic systolic CHF (congestive heart failure) (Resolved) Hypomagnesemia (Resolved) 1. Acute heart failure with reduced ejection fraction * Ejection fraction is 15% from echocardiogram on 03/27 * Continue with IV Lasix * Continue spironolactone and losartan. * Carvedilol will be held given the recent cocaine ingestion * CXR pending. 2. Elevated troponins/NSTEMI * Could be related with demand ischemia from the CHF but could also be related with a primary coronary event given his history of ischemic heart disease but also could be related with the vasospasm given the cocaine and amphetamine ingestion. * Therepuetic lovenox, ASA, statin, plavix, losartan * Cardiology following * Continue aspirin * [facility] at the discretion of cardiology. 3. Polysubstance abuse * This is been long-standing problem for the patient * Given the cocaine ingestion will beta-blockers for now * advised complete cessation of all drugs, including marijuana. 4. Diabetes mellitus type 2 * Continue with his basal insulin plus sliding scale * patient had a bottle of Sprite at his bedside table. He did not drink it because he was told not to. * Advised diet Sprite and diet sodas, if he wants to drink sodas * consult nutrition. 5. DVT prophylaxis with anticoagulation Code Visit Inpatient E&M: 92840 Subs Hosp L2
[2018-04-29 14:25] LABS: Bedside Glucose 186 mg/dL (70-110)
[2018-04-29 17:51] LABS: Bedside Glucose 174 mg/dL (70-110)
[2018-04-29 22:16] LABS: Bedside Glucose 255 mg/dL (70-110)
[2018-04-30] VITALS (30 sets, daily range): BP systolic 103–149; BP diastolic 61–97; PULSE 73–101; RESP 11–25; TEMP 36.3–36.6; O2SAT 94–100; BMI 25.9
[2018-04-30] MEDS: Nitroglycerin Oint 1 INCH PACKET TRANSDERM. ×4 (00:34→17:13)
[2018-04-30 02:34] LABS: Vista UDS pH Range 7
[2018-04-30 02:58] LABS: Amphetamine Urine VISTA POSITIVE (<1000 ng/mL); Barbiturate Urine VISTA NEGATIVE (< 200 ng/mL); Benzodiazepine Urine VISTA NEGATIVE (< 200 ng/mL); Cocaine Urine VISTA NEGATIVE (< 300 ng/mL); Ecstacy Urine VISTA NEGATIVE (< 500 ng/mL); Methadone Urine VISTA NEGATIVE (< 300 ng/mL); PCP Urine VISTA NEGATIVE (< 25 ng/mL); THC Urine VISTA POSITIVE (< 50 ng/mL)
[2018-04-30 04:23] LABS: Absolute Lymphocyte Count 1.68 X10^3/ul (0.83-4.51); Absolute Neutrophil Count 5.1 X10^3/uL (2.0-7.7); Basophil# 0.02 X10^3/uL; Basophil% 0.3 % (0-1); Eosinophil# 0.37 X10^3/uL; Eosinophils% 4.8 % (0-5); Hematocrit 41.9 % (40-54); Hemoglobin 14.7 g/dl (13.0-16.5); Lymphocyte # 1.68 X10^3/ul (4.0); Lymphocyte % 21.6 % (19-41); Mean Corp Hgb Conc 35.1 g/gl (32-36); Mean Corpuscular Hgb 30.4 pg (27.0-32.0); Mean Corpuscular Volume 86.6 fL (80-94); Mean Platelet Vol. 10.4 fl (6.2-12.0); Monocyte# 0.57 X10^3/uL; Monocyte% 7.3 % (0-10); Neutrophil # 5.13 X10^3/uL (2.7-7.7); Neutrophil % 65.9 % (47-70); Platelet Count 176 K/mm3 (150-450); RBC Distribution Width CV 12.2 % (11.6-14.6); RBC Distribution Width SD 38.2 fl (35.1-43.9); Red Blood Count 4.84 M/mm3 (4.6-6.2); White Blood Count 7.8 K/mm3 (4.4-11.0)
[2018-04-30 04:30] LABS: International Normalized Ratio 0.9; POSITIVE COUNT NO; POSITIVE DIFFERENTIAL NO; POSITIVE MORPHOLOGY NO; Prothrombin Time (Protime)PT. 12.3 SECONDS (11.7-14.9)
[2018-04-30 04:31] LABS: Partial Thromboplast Time 29.8 Seconds (24.1-36.2)
[2018-04-30 04:56] LABS: Anion Gap 10 (5-15); BUN 13 mg/dL (7-18); Calcium,Total 8.2 mg/dL (8.5-10.1); Chloride 107 mmol/L (98-107); Creatinine, Serum 0.81 mg/dL (0.70-1.30); EST Glomerular Filtration Rate 112 mL/min (>60); Est Glom Filt Rate - Afr Amer 135 mL/min (>60); Estimated Creatinine Clearance 133.06 ml/min; Glucose 196 mg/dL (74-106); Magnesium 1.9 mg/dL (1.6-2.6); Potassium 4.1 mmol/L (3.5-5.1); Sodium Level 136 mmol/L (136-145)
--- NOTE | 2018-04-30 05:28 | RAD_ITS ---
STUDY: X-RAY CHEST REASON FOR EXAM: Male, 42 years old. CHF. TECHNIQUE: Single AP portable view of the chest. COMPARISON: Comparison is made with prior study dated April 28, 2018. FINDINGS: EKG electrodes are seen. Since prior study, the CHF has improved. There are residual small bilateral pleural effusions slightly worse on the right side. There is mild cardiac enlargement. Normal mediastinum and kelly. Normal visualized pulmonary arteries. Normal visualized aortic arch and descending thoracic aorta. Normal visualized thoracic spine. Normal visualized ribs, clavicles, and shoulders. There is no demonstrated abnormality of the visualized soft tissue structures of the upper abdomen. RAD/Chest 1 View (Portable) IMPRESSION: Mild residual CHF with small bilateral effusions although there has been improvement as compared to prior study. Electronically Signed: Nishant Masterson MD at 9:43 EST Tel [phone], Service support ,
--- NOTE | 2018-04-30 05:55 | EKG12_ITS ---
Test Reason : POST-PCI Blood Pressure : / mmHG Vent. Rate : 094 BPM Atrial Rate : 094 BPM P-R Int : 158 ms QRS Dur : 090 ms QT Int : 378 ms P-R-T Axes : 059 -54 091 degrees QTc Int : 472 ms Normal sinus rhythm Left anterior fascicular block Anteroseptal infarct , age undetermined Abnormal ECG Confirmed by KATRINA MCKEON, SAMANTHA ([id number]), marketing editor EDELMIRA RIVAS ([id number]) on 05/10/2018 11:18:29 AM Referred By: ARASH Confirmed By:SAMANTHA HERNDON MD
[2018-04-30] MEDS: Clopidogrel Bisulfate 75 MG Tablet PO (06:11)
[2018-04-30] MEDS: Losartan Potassium 25 MG Tablet PO (06:11)
[2018-04-30] MEDS: Aspirin E.C. 81 MG Tablet PO (06:12)
[2018-04-30 06:52] LABS: Bedside Glucose 192 mg/dL (70-110)
--- NOTE | 2018-04-30 09:32 | CASEMGMT ---
According to the [facility] website, the following are in-network tertiary facilities: [facility], [place], and . [place] TEJEDA CM
--- NOTE | 2018-04-30 10:15 | NURSING ---
Report called to Daniela in icu
--- NOTE | 2018-04-30 10:33 | CL.I_ITS ---
Patient Name: JEANETTE HUTCHINSON Study Date: 04/30/2018 Performing: Cyrus Gardner MD Ht: 72.05 inches 183 cm : 1975 Wt: 191.8 lbs 87 kg Age: 42 Gender: male BSA: 2.09 PROCEDURE(S) PERFORMED VL16-ILB W OR WO PTCA, SINGLE CORONARY ARTERY CLINICAL PROFILE AND CO-MORBIDITIES Indications: Suspected CAD, LV Dysfunction, Cardiomyopathy Heart Failure: NYHA Class: 4, Newly Diagnosed: Yes, Heart Failure Type: Systolic Stress/Imaging Stress/Image Study Performed: No Angina Classification Anginal Classification w/in 2 Weeks: CCS IV CAD Presentations: Non-STEMI. CONCLUSIONS Successful [place]HRDAD RECOMMENDATIONS Follow up with primary mirror finishing machine operator ASA Indefinitley Plavix for at least 12 months DESCRIPTION OF PROCEDURE The patient arrived to the procedure lab. The risks and benefits of the procedure as well as a full d escription of our services here and current unavailability of surgical backup were fully explained to the patient and/or their significant other prior to the catheterization. The Timeout was completed, verifying the correct patient and procedure. The patient's procedural site was prepped and draped in the usual fashion. Local anesthetic was given subcutaneously to right radial region with Lidocaine 2% Using a modified Seldinger technique,arterial access was obtained via the right radial artery, a 6Fr sheath was inserted. Left Coronary Artery selective angiography was performed in multiple views usin g a 5 Fr. 4.0 [place] catheter. Right Coronary Artery selective angiography was then performed in multi ple views using a 5 Fr. 4.0 [place] catheter. Left Ventriculography was performed in DUNCAN projection usi ng a 5 Fr. Pig[place] catheter. LV to AO pullback pressures were then recorded.The images were reviewed and options discussed. A decision was then made to proceed with an Intervention, IVUS o r other adjunct procedure. 3DRC Guide catheter was inserted and engaged into the RCA. BMW Guide wire was advanced to the RCA . Synergy 2.75x16 Drug Eluting stent was inserted. Angiogram performed post stent deployment. BioKier 3.00x12 Balloon catheter was inserted. PTCA balloon inflated at 14 atms for 20 secs. Angiogram per formed post balloon dilatation. The arterial sheath was pulled and a TR Band was applied for hemost asis w/ 16ml air INTERVENTION INFORMATION Lesion Complexity: Non-High/Non-C, chronic total occlusion: No, lesion at bifurcation: No, thrombus p resent: No, lesion length: 8mm mm, culprit lesion: Yes, In-stent restenosis: No Pre Stenosis: 80 % Pre intervention SHARA flow: 3 PROCEDURE: Drug Eluting Stent with post dilatation Post Stenosis: 0 % Post intervention SHARA flow: 3 Lesion Devices: Cordis 6 Fr 3DRC 100cm Guide Catheter Nick .014 BMW [place] Straight 190cm Noel Sci Synergy MR MEHRDAD 2.75x16 Noel Sci NC EMERGE MR 3.00x12 BALLOON LESION SITE: RPL (1st) COMPLICATIONS No Complications PROCEDURE MEDICATIONS Versed 1 mg IV Fentanyl 50 mcg IV Versed 1 mg IV Fentanyl 50 mcg IV Oxygen: 2 L/min via nasal cannula Angiomax Bolus 12.8 ml's 04/30/2018 09:58:45 Angiomax 5mg / ml @ ml/hr IV started @ 29.8 ml/hr @ 04/30/2018 09:58:50 Heparin diluted in 23cc Heparinized saline. Patient given 10cc IA of this solution. 04/30/2018 09:15 :22 Nitro 200 mcg IC 04/30/2018 10:12:00 Verapamil 2.5mg, Ntg 100mcgs, 2000 units of Heparin diluted in 23cc Heparinized saline. Patient give n 10cc IA of this solution. 04/30/2018 09:15:22 SUMMARY OF HEMODYNAMIC DATA Time AIR REST ECG 09:00:38 AO 109/90 (100) SA 09:17:21 LV 135/12, 47 09:24:34 LV 127/10, 39 09:24:41 LV 125/9, 40 09:25:48 LVp 126/11, 40 09:25:57 AOp 125/91 (104) 09:26:02 AO 122/75 (88) 09:34:52 Signed By Cyrus Gardner MD On 04/30/2018 10:32:42 Cyrus Gardner MD
--- NOTE | 2018-04-30 10:45 | EKG12_ITS ---
Test Reason : AM EKG Blood Pressure : / mmHG Vent. Rate : 088 BPM Atrial Rate : 088 BPM P-R Int : 150 ms QRS Dur : 094 ms QT Int : 372 ms P-R-T Axes : 071 -53 094 degrees QTc Int : 450 ms Sinus rhythm with occasional Premature ventricular complexes Possible Left atrial enlargement Left anterior fascicular block Anteroseptal infarct , age undetermined T wave abnormality, consider lateral ischemia Abnormal ECG Confirmed by KATRINA MCKEON, SAMANTHA ([id number]), business editor EDELMIRA RIVAS ([id number]) on 05/02/2018 3:02:06 PM Referred By: ZACH Confirmed By:SAMANTHA HERNDON MD
[2018-04-30] MEDS: Furosemide 40 MG/4 ML Vial IV ×2 (11:15→17:13)
[2018-04-30] MEDS: Atorvastatin Calcium 40 MG Tablet PO ×2 (11:16→22:25)
[2018-04-30] MEDS: Spironolactone 25 MG Tablet PO (11:16)
[2018-04-30] MEDS: Magnesium Oxide 400 MG Tablet PO (11:16)
[2018-04-30] MEDS: Sertraline 50 MG Tablet PO (11:16)
[2018-04-30 11:20] LABS: Bedside Glucose 135 mg/dL (70-110)
[2018-04-30] MEDS: HYDROcodone Bitartrate/Apap 5/325 Tablet PO (11:20)
[2018-04-30] MEDS: 0.9% NaCl Peripheral Flush Adult/Peds IV ×2 (11:20→17:12)
--- NOTE | 2018-04-30 13:12 | CRPHASE1 ---
Patient Data/Charges Agency Service Coordinator:: Cyrus Gardner Refer Phase II:: Yes Phase II Referral:: [facility] Risk Factors/Lifestyle Smoking Status: Current every day smoker Hx Diabetes Mellitus Type 2: Yes Height: 1.83 m Weight:: 86.636 kg BMI: 25.9 Substance Abuse: Yes - cocaine, marijuana Family History: Family History (Last Reviewed 04/28/18 @ 11:18 by Bro Hewitt DO) Mother CAD (coronary artery disease) Diabetes Hypertension Myocardial infarction Father CAD (coronary artery disease) Diabetes Hypertension Myocardial infarction Brother Hypertension Medical/Surgical History [place]:: Yes Cardiomyopathy:: Yes Diabetes Type II:: Yes Hypertension:: Yes Dyslipidemia:: Yes PTCA:: Yes
--- NOTE | 2018-04-30 13:15 | CRPHASE1_ITS ---
Patient Data/Charges Sander And Polisher:: Cyrus Gardner Refer Phase II:: Yes Phase II Referral:: [facility] Risk Factors/Lifestyle Smoking Status: Current every day smoker Hx Diabetes Mellitus Type 2: Yes Height: 1.83 m Weight:: 86.636 kg BMI: 25.9 Substance Abuse: Yes - cocaine, marijuana Family History: Family History (Last Reviewed 04/28/18 @ 11:18 by Bro Hewitt DO) Mother CAD (coronary artery disease) Diabetes Hypertension Myocardial infarction Father CAD (coronary artery disease) Diabetes Hypertension Myocardial infarction Brother Hypertension Medical/Surgical History [place]:: Yes Cardiomyopathy:: Yes Diabetes Type II:: Yes Hypertension:: Yes Dyslipidemia:: Yes PTCA:: Yes
--- NOTE | 2018-04-30 13:15 | CRPH1.INSTRU ---
General Education CAD and cardiac anatomy and function:: Needs reinforcement Explanation of diagnoses and procedures:: Needs reinforcement Sign/Symptoms of LA:: Needs reinforcement Antiplatelet therapy: Needs reinforcement Proper use of NTG-SL: Not instructed Emergency procedures and activation of EMS: Needs reinforcement Compliance of all prescribed medications: Needs reinforcement Smoking Patient Nicotine/Smoking Risk Factors Are:: Cigarettes Nicotine/Smoking Response Code:: Needs reinforcement Dyslipidemia Dyslipidemia Response Code:: Needs reinforcement Overweight/Obesity Patient Overweight/Obesity Risk Factors Are:: Overweight = 26-29 Recommendations Include:: Weight loss of 5-10%, Reduced calorie diet, Exercise 5-7 times/week Overweight/Obesity:: Needs reinforcement Hypertension Recommendations Include:: Maintain BP <130/85, BP <130/80 if diabetic, DASH dietary guidelines, Decrease/maintain normal body weight, Moderation of ETOH Hypertension:: Needs reinforcement Heart Disease Heart Disease Response Code:: Needs reinforcement Diabetes Recommendations Include:: Maintain fasting blood sugars 70-110 md/dL, Maintain HgbA1c of 6% or less, Monitor blood sugar as prescribed, Diabetic dietary guidelines, Decrease/maintain body weight Diabetes:: Needs reinforcement Metabolic Syndrome Metabolic Syndrome Response Code:: Needs reinforcement Sedentary Sedentary Response Code:: Needs reinforcement Stress Stress Response Code:: Needs reinforcement
--- NOTE | 2018-04-30 13:27 | CASEMGMT ---
SW met w/pt briefly, pt just came back from a heart cath and having difficulty staying awake. Pt states lives home with a family friend, is independent with ADL's. Pt's PCP is Dr. Child, and uses [facility] for prescriptions. Pt does not anticipate any homegoing needs. SW spoke w/pt about his substance abuse. Pt fell asleep multiple times during our conversation, but denied that drug use is a problem. SW spoke w/pt about going to [facility]. Pt states he lives across the street from and goes over there sometimes to watch TV. Pt states, they know me over there. Pt states that he likes to talk to the people over there. SW encouraged pt to follow up w/ [facility] and go for an intake. Pt states understanding. Pt also talked about wanting to leave, that his two year old just had surgery and he wants to get home. SW encouraged pt to stay until the doctor discharges him, that he cannot help his daughter if he is not well. Pt states understanding. No further needs, pt home at discharge and declines any referrals, SW encouraged pt to follow up w/ [facility]. EMILIANO Srinivasan, THREAD WINDER
--- NOTE | 2018-04-30 16:02 | PCM.PN.CARD ---
Subjectve: The patient is now status post diagnostic cardiac catheterization. He was found to have progression of his underlying RCA disease. He subsequently underwent RCA PCI per Dr. Gardner of interventional cardiology of [facility] that he appears to be resting comfortably at this time. Objective: Vital Signs Temp Pulse Resp BP Pulse Ox 97.8 F 95 18 149/96 H 97 04/30/18 11:00 04/30/18 15:00 04/30/18 15:00 04/30/18 15:00 04/30/18 15:00 Oxygen Flow Rate (L/min) 2 Oxygen Delivery Method Room Air Weight: 191 lb Body Mass Index (BMI) 26.1 Finger Stick Blood Glucose 119 Intake and Output for Last 24 Hours 04/28/18 04/29/18 04/30/18 23:59 23:59 23:59 Intake Total 1820 / 1820 1900 / 1900 Output Total 1025 / 1025 Balance 1820 / 1820 1900 / 1900 -1025 / -1025 General: Awake, Alert, Oriented x 3, Cooperative, No Acute Distress HEENT: Atraumatic, Normocephalic, PERRL, EOMI, Sclera Non Icteric Oral: Moist Mucosa Neck: Supple, Good ROM, No JVD Lungs: Clear to auscultation Cardiovascular: Regular Rhythm, Normal S1, Normal S2 Vascular: No Carotid Bruits Abdomen: Bowel Sounds Present, Soft, Non Tender Extremities: No Cyanosis, No Clubbing, No edema Neurological: No Focal Motor or Sensory Deficit Psych/Mental Status: Appropriate 04/30/18 04:04: Sodium 136, Potassium 4.1, Chloride 107, Carbon Dioxide 19.0 L, Anion Gap 10, BUN 13, Creatinine 0.81, Est GFR (MDRD) Af Amer 135, Est GFR (MDRD) Non-Af 112, BUN/Creatinine Ratio 16.0, Glucose 196 H, Calcium 8.2 L, Magnesium 1.9, Troponin I 2.220 H* 04/30/18 04:04: WBC 7.8, RBC 4.84, Hgb 14.7, Hct 41.9, MCV 86.6, MCH 30.4, MCHC 35.1, RDW 12.2, RDW Differential 38.2, Plt Count 176, MPV 10.4, Immature Gran % (Auto) 0.100, Neut % (Auto) 65.9, Lymph % (Auto) 21.6, [place] % (Auto) 7.3, Eos % (Auto) 4.8, Baso % (Auto) 0.3, Absolute Neuts (auto) 5.1, Total Counted Not Reportable 04/30/18 04:04: PT 12.3, INR 0.9, APTT 29.8 Rhythm: Sinus rhythm Cardiac Cath: Please see official report PCI: Please see official report Medical Necessity - Tobacco Use Smoking Status: Current every day smoker Assessment/Plan 1. Non-ST segment elevation TN The patient has laboratory findings compatible with abnormal troponin I levels compatible with a non-ST segment elevation TN. It is unclear whether this is a primary acute coronary syndrome event, and event related to his illicit drug use especially cocaine with respect to coronary artery vasospasm, etc., or a type II supply demand mismatch event secondary to his noncardiovascular issues superimposed upon his underlying CAD and ischemic mediated cardiomyopathy. He is now status post diagnostic cardiac catheterization. He was found to have progression of his distal RCA disease/right AV segment disease. He subsequently underwent PCI. He will continue medical management. He also needs to improve from his noncardiac condition with respect to his polysubstance use and concerns of also possible acute on chronic CHF and he has lethargy of uncertain etiology prior to proceeding with additional invasive evaluation care barring and unforeseen urgent/emergent event. 2. CAD status post PCI The patient has undergone previous PCI as noted above. He will continue medical therapy. He was encouraged to continue outpatient cardiac rehabilitation therapy as well. 3. Ischemic mediated cardiomyopathy The patient has a severely dysfunctional left ventricle was described. He will need to continue medical management. 4. Chronic systolic CHF The patient may have acute on chronic systolic CHF. Again it is unclear whether this is secondary to an acute coronary syndrome event, but his illicit drug use, superimposed upon his ischemic mediated cardiomyopathy or whether this is an acute on chronic CHF event separate from the aforementioned issues. He will have medical management. His follow-up x-ray appears improved. 5. Subcutaneous ICD This was interrogated today while the patient was in the cardiac catheterization laboratory area. 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 Also there was no report of any atrial dysrhythmias. 6. Hyperlipidemia The patient will continue lipid-lowering therapy. 7. Hypertension The patient's blood pressure will be followed. He will continue medical management. 8. Diabetes mellitus The patient will continue evaluation care per internal medicine. 9. Polysubstance abuse Per the medical records the patient reportedly was involved with cocaine use and has toxicology noted positive for amphetamine use and cannabinoids use. Comment: The patient's case has been discussed and reviewed with the patient. This note was generated using a voice recognition system and there may be incorrect words, spelling or punctuation that were not noted when reviewing the office note prior to saving.
[2018-04-30 16:30] LABS: Bedside Glucose 271 mg/dL (70-110)
[2018-04-30] MEDS: Insulin Lispro 100 UNIT/ML INSULN.PEN SQ (17:12)
--- NOTE | 2018-04-30 18:52 | CL.D_ITS ---
Patient Name: JEANETTE HUTCHINSON Study Date: 04/30/2018 Performing: Boaz Cabrera MD Ht: 72 inches 183 cm : 1975 Wt: 192.1 lbs 87 kg Age: 42 Gender: male BSA: 2.09 PROCEDURE(S) PERFORMED SV52-NYT/COR/LV AS64-XCS W OR WO PTCA, SINGLE CORONARY ARTERY CLINICAL PROFILE AND INDICATIONS Indications: Suspected CAD, LV Dysfunction, Cardiomyopathy Heart Failure: NYHA Class: 4, Newly Diagnosed: Yes, Heart Failure Type: Systolic Stress/Imaging Stress/Image Study Performed: No Angina Classification Anginal Classification w/in 2 Weeks: CCS IV CAD Presentations: Non-STEMI. CONCLUSIONS Elevated Left Ventricular End Diastolic Pressure Segmented LV systolic dysfunction- Severe LVEF: by LV gram 15 % [place] Multivessel CAD RECOMMENDATIONS Risk factor modification Medical therapy Referred for immediate PCI DESCRIPTION OF PROCEDURE The patient arrived to the procedure lab. The risks and benefits of the procedure as well as a full d escription of our services here and current unavailability of surgical backup were fully explained to the patient and/or their significant other prior to the catheterization. The Timeout was completed, verifying the correct patient and procedure. The patient's procedural site was prepped and draped in the usual fashion. Local anesthetic was given subcutaneously to right radial region with Lidocaine 2% . Using a modified Seldinger technique, arterial access was obtained via the right radial artery, a 6 Fr sheath was inserted. Left Coronary Artery selective angiography was performed in multiple views u sing a 5 Fr. 4.0 [place] catheter. Right Coronary Artery selective angiography was then performed in mu ltiple views using a 5 Fr. 4.0 [place] catheter. Left Ventriculography was performed in [place] projection using a 5 Fr. [place] catheter. LV to AO pullback pressures were then recorded.The arterial sheath was pulled and a TR Band was applied for hemostasis w/ 16ml air CORONARY ANGIOGRAPHY DOMINANCE: Right Dominant LEFT HEART ASSESSMENT Left Ventricular Ejection Fraction: by LV Gram 15 % Anterior Hypokinesis - Severe. Apical Hypokinesis - Severe. Inferior Basal Hypokinesis - Severe. Infe rior Mid Akinesis Elevated Left Ventricular End Diastolic Pressure LVEDP: 39 mmHg LEFT MAIN: Angiographically normal LEFT ANTERIOR DECENDING ARTERY: Mild luminal irregularities MID LAD: Previously placed stent is patent CIRCUMFLEX ARTERY: PROX CIRC: is occluded OM 1: Mid - Fills late, faintly, and partially from left to left collateral flow RIGHT CORONARY ARTERY: Mild luminal irregularities MID RCA: Previously placed stent is patent RIGHT AV SEGMENT: Eccentric: 85 % Stenosis VALVE FINDINGS: Normal Aortic Valve function Normal Mitral Valve function AORTIC ROOT: Angiographically normal COMPLICATIONS No Complications PROCEDURE MEDICATIONS Versed 1 mg IV Fentanyl 50 mcg IV Versed 1 mg IV Fentanyl 50 mcg IV Oxygen: 2 L/min via nasal cannula Angiomax Bolus 12.8 ml's 04/30/2018 09:58:45 Angiomax 5mg / ml @ ml/hr IV started @ 29.8 ml/hr @ 04/30/2018 09:58:50 Heparin diluted in 23cc Heparinized saline. Patient given 10cc IA of this solution. 04/30/2018 09:15 :22 Nitro 200 mcg IC 04/30/2018 10:12:00 Verapamil 2.5mg, Ntg 100mcgs, 2000 units of Heparin diluted in 23cc Heparinized saline. Patient give n 10cc IA of this solution. 04/30/2018 09:15:22 SUMMARY OF HEMODYNAMIC DATA Time AIR REST ECG 09:00:38 AO 109/90 (100) SA 09:17:21 LV 135/12, 47 09:24:34 LV 127/10, 39 09:24:41 LV 125/9, 40 09:25:48 LVp 126/11, 40 09:25:57 AOp 125/91 (104) 09:26:02 AO 122/75 (88) 09:34:52 Signed By Boaz Cabrera MD On 04/30/2018 18:52:07 Boaz Cabrera MD
--- NOTE | 2018-04-30 19:20 | PCM.PROGNOTE ---
Patient Problems: Active and Suspected Problems (Last Reviewed 04/28/18 @ 11:18 by Bro Hewitt DO) HFrEF (heart failure with reduced ejection fraction) (Acute) Elevated troponin (Acute) Subjective: Mr. Mora is a 42-year-old male with a past medical history of severe left ventricular systolic dysfunction, polysubstance abuse, AICD present, tobacco dependence, hypertension, history of PTCA/drug-eluting stents to the LAD in August 2014 and to the proximal and mid circumflex and proximal mid RCA in March 2015, hyperlipidemia, type 2 diabetes mellitus and chronic systolic congestive heart failure who presented to the emergency room groggy and likely intoxicated complaining of chest pain after using cocaine. Initial troponin was 0.028 and BNP was 604. Chest x-ray was consistent with congestive heart failure. Urine drug screen was positive for amphetamines and cannabinoids. Troponin peaked at 4.22 and today was 2.2 2 in the AM. He was taken for cardiac catheterization and there was an occlusion of the RCA. He also had an occluded proximal circumflex. Intervention was performed and the patient had a PTCA/MEHRDAD to the RCA. Post stent the stenosis was 0%, down from 85%. Cardiac catheterization showed a 15% left ventricular ejection fraction. All events of the past 24 hours of been reviewed. Afebrile since admission. Vital signs are stable and the pulse ox is 94-100% on room air. Denies chest pain. States his breathing is better since Lasix and the stent. Currently denies shortness of breath and denies palpitations. He does occasionally get swelling in his legs but not present now. Telemetry shows NSR with occasional premature beat. No NSVT Objective: PHYSICAL EXAM: GENERAL: alert, oriented X 3, Cooperative, NAD ORAL: moist mucosa, no mucosal lesions NECK: mild JVD, supple, trachea midline LUNGS: CTA, symmetric chest expansion, no conversational dyspnea, no accessory muscle use, breath sounds are diminished throughout HEART: RRR, Normal S1 and S2, no rub, no gallop ABDOMEN: soft, NT, ND, BS present, no guarding with palpation EXTREMITIES: no edema, no cyanosis, no calf tenderness, the dressing at the cath site on the right wrist is dry and there is no swelling or pain present SKIN: No rashes, no breakdown, he has stasis dermatitis of his lower extremities with dry skin. NEUROLOGIC: no focal neurologic deficits PSYCH: appropriate, normal affect, pleasant, he seems to have an unrealistic expectation of a long life. We discussed his EF and what normal is. Has been using Cocaine once a week and his drug screen is positive for amphetamines but he denies amphetamine use. 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 - Physical Exam Vital Signs Temp Pulse Resp BP Pulse Ox 97.8 F 96 24 H 130/97 H 98 04/30/18 16:00 04/30/18 18:00 04/30/18 18:00 04/30/18 18:00 04/30/18 18:00 Oxygen Flow Rate (L/min) 2 Oxygen Delivery Method Room Air Weight: 191 lb Body Mass Index (BMI) 26.1 Finger Stick Blood Glucose 119 Intake and Output for Last 24 Hours 04/28/18 04/29/18 04/30/18 23:59 23:59 23:59 Intake Total 1820 / 1820 1900 / 1900 Output Total 2225 / 2225 Balance 1820 / 1820 1900 / 1900 -2225 / -2225 Laboratory Tests Past 24 Hrs 04/29/18 04/30/18 04/30/18 02:07 04:04 04:04 WBC 7.8 RBC 4.84 Hgb 14.7 Hct 41.9 MCV 86.6 MCH 30.4 MCHC 35.1 RDW 12.2 RDW Differential 38.2 Plt Count 176 MPV 10.4 Immature Gran % (Auto) 0.100 Neut % (Auto) 65.9 Lymph % (Auto) 21.6 [place] % (Auto) 7.3 Eos % (Auto) 4.8 Baso % (Auto) 0.3 Absolute Neuts (auto) 5.1 Absolute Lymphs (auto) 1.68 Total Counted Not Reportable PT INR APTT Sodium 136 Potassium 4.1 Chloride 107 Carbon Dioxide 19.0 L Anion Gap 10 BUN 13 Creatinine 0.81 Estim Creat Clear Calc 133.06 Est GFR (MDRD) Af Amer 135 Est GFR (MDRD) Non-Af 112 BUN/Creatinine Ratio 16.0 Glucose 196 H Calcium 8.2 L Magnesium 1.9 Troponin I 2.220 H* Urine Opiates Screen POSITIVE H Urine Methadone Screen NEGATIVE Ur Barbiturates Screen NEGATIVE Ur Phencyclidine Scrn NEGATIVE Ur Amphetamines Screen POSITIVE H U Methamphetamin-MDMA NEGATIVE U Benzodiazepines Scrn NEGATIVE Urine Cocaine Screen NEGATIVE U Cannabinoids Screen POSITIVE H Ur Drug Screen Comment 04/30/18 04:04 WBC RBC Hgb Hct MCV MCH MCHC RDW RDW Differential Plt Count MPV Immature Gran % (Auto) Neut % (Auto) Lymph % (Auto) [place] % (Auto) Eos % (Auto) Baso % (Auto) Absolute Neuts (auto) Absolute Lymphs (auto) Total Counted PT 12.3 INR 0.9 APTT 29.8 Sodium Potassium Chloride Carbon Dioxide Anion Gap BUN Creatinine Estim Creat Clear Calc Est GFR (MDRD) Af Amer Est GFR (MDRD) Non-Af BUN/Creatinine Ratio Glucose Calcium Magnesium Troponin I Urine Opiates Screen Urine Methadone Screen Ur Barbiturates Screen Ur Phencyclidine Scrn Ur Amphetamines Screen U Methamphetamin-MDMA U Benzodiazepines Scrn Urine Cocaine Screen U Cannabinoids Screen Ur Drug Screen Comment POC Glucose 04/30/18 04/30/18 04/30/18 16:27 11:07 06:43 POC Glucose 271 H 135 H 192 H 04/29/18 22:00 POC Glucose 255 H Medical Necessity - Tobacco Use Smoking Status: Current every day smoker Assessment/Plan All Active Problems (Last Reviewed 04/28/18 @ 11:18 by Bro Hewitt DO) HFrEF (heart failure with reduced ejection fraction) (Acute) Elevated troponin (Acute) Acute on chronic systolic CHF (congestive heart failure) (Resolved) Hypomagnesemia (Resolved) Impressions 1. NSTEMI type I 2. Status post PTCA/MEHRDAD to the RCA. 3. Coronary artery disease 4. Ischemic cardiomyopathy with a 10-15% ejection fraction 5. Acute systolic congestive heart failure at admission-improved 6. Polysubstance abuse including cannabis and cocaine-drug screen positive for amphetamine but he denies 7. Diabetes mellitus type 2 Recheck lab in the a.m. Maintain in ICU and monitor closely for reperfusion dysrhythmia Will need aspirin for the rest of his life and Plavix for at least 12 months Discussed discontinuing any use of cocaine given his severe cardiomyopathy and coronary artery disease Continue carvedilol, aspirin, Plavix, losartan, Lipitor and Spironolactone. Convert the Nitropaste to Imdur Smoking cessation was discussed with the patient and the was advised that cigarette smoking is the leading preventable cause of mortality in the [place]. The 3 major causes of smoking-related mortality are atherosclerotic cardiovascular diseases, lung cancer and COPD. Up to 1/2 of all smokers can expect to of a smoking related illness. Smoking also increases the risk for Infections, Diabetes, Osteoporosis, Reproductive disorders, PUD, peridontal disease and postoperative complications. Nicotine is a potent psychoactive drug that causes physical dependence and tolerance. Nicotine withdrawal sx including increased appetite or weight gain, depressed mood, insomnia, irritability, frustration, anxiety, difficulty concentrating and restlessness were discussed. The was advised that the withdrawal symptoms generally peak in the first 3 days and subside over the next 3-4 weeks but cravings may continue for months to years. Both Behavioral and pharmacologic therapies were discussed with the patient and he was given an opportunity to ask questions. All questions were answered and he was made aware of the smoking cessation program at [facility]. Code Visit Inpatient E&M: 75403 Subs Hosp L3
--- NOTE | 2018-04-30 20:15 | NURSING ---
pt wants bipap off, n/c at 4.5 lpm placed.
[2018-04-30 21:06] LABS: Hemoglobin A1c 8.7 % (4.2-6.3)
[2018-04-30] MEDS: Carvedilol 3.125 MG TABLET PO (22:24)
[2018-04-30] MEDS: Enoxaparin 100 MG/ML Syringe 90 MG SC (22:24)
[2018-04-30 22:35] LABS: Bedside Glucose 204 mg/dL (70-110)
[2018-05-01] VITALS (11 sets, daily range): BP systolic 103–133; BP diastolic 71–100; PULSE 75–102; RESP 16–24; TEMP 36.3–36.7; O2SAT 95–100
[2018-05-01] MEDS: Nitroglycerin Oint 1 INCH PACKET TRANSDERM. (00:32)
[2018-05-01 05:30] LABS: Absolute Lymphocyte Count 2.05 X10^3/ul (0.83-4.51); Absolute Neutrophil Count 6.9 X10^3/uL (2.0-7.7); Basophil# 0.02 X10^3/uL; Basophil% 0.2 % (0-1); Eosinophil# 0.65 X10^3/uL; Eosinophils% 6.3 % (0-5); Hematocrit 41.7 % (40-54); Hemoglobin 14.7 g/dl (13.0-16.5); Lymphocyte # 2.05 X10^3/ul (4.0); Lymphocyte % 19.8 % (19-41); Mean Corp Hgb Conc 35.3 g/gl (32-36); Mean Corpuscular Hgb 30.4 pg (27.0-32.0); Mean Corpuscular Volume 86.3 fL (80-94); Mean Platelet Vol. 10.7 fl (6.2-12.0); Monocyte# 0.68 X10^3/uL; Monocyte% 6.6 % (0-10); Neutrophil # 6.93 X10^3/uL (2.7-7.7); Platelet Count 195 K/mm3 (150-450); RBC Distribution Width CV 12.4 % (11.6-14.6); RBC Distribution Width SD 38.4 fl (35.1-43.9); Red Blood Count 4.83 M/mm3 (4.6-6.2); White Blood Count 10.3 K/mm3 (4.4-11.0)
[2018-05-01] MEDS: Isosorbide Mononitrate 30 MG Tablet PO (06:21)
[2018-05-01] MEDS: 0.9% NaCl Peripheral Flush Adult/Peds IV (06:25)
[2018-05-01 06:40] LABS: AST(SGOT) 23 U/L (15-37); Alanine Aminotransfer ALT/SGPT 45 U/L (16-61); Albumin, Serum 3.1 g/dL (3.2-5.0); Alkaline Phosphatase 94 U/L (45-117); Anion Gap 10 (5-15); BUN 13 mg/dL (7-18); Bilirubin, Direct 0.13 mg/dL (0.00-0.30); Calcium,Total 8.4 mg/dL (8.5-10.1); Chloride 103 mmol/L (98-107); Cholesterol 149 mg/dL (200); Creatinine, Serum 0.86 mg/dL (0.70-1.30); EST Glomerular Filtration Rate 104 mL/min (>60); Est Glom Filt Rate - Afr Amer 126 mL/min (>60); Estimated Creatinine Clearance 125.32 ml/min; Globulin 3.5 g/dL (2.2-4.2); Glucose 212 mg/dL (74-106); High Density Lipoprotein 45 mg/dL; Phosphorus 3.5 mg/dL (2.5-4.9); Potassium 4.1 mmol/L (3.5-5.1); Protein, Total 6.6 g/dL (6.4-8.2); Sodium Level 138 mmol/L (136-145); Triglycerides 164 mg/dL; Very Low Density Lipoprotein 33 mg/dL (5-40)
[2018-05-01 07:00] LABS: POSITIVE COUNT NO; POSITIVE DIFFERENTIAL NO; POSITIVE MORPHOLOGY NO
[2018-05-01 07:05] LABS: Bedside Glucose 239 mg/dL (70-110)
--- NOTE | 2018-05-01 07:09 | PCM.DC ---
- Discharge Diagnoses Current Active Problems: Current Active and Chronic Problems (Last Reviewed 04/28/18 @ 11:18 by Bro Hewitt DO) HFrEF (heart failure with reduced ejection fraction) (Acute) Elevated troponin (Acute) CAD (coronary artery disease) (Chronic) You will use the following diet at home:: Calorie/Carbohydrate Controlled (specify 1200, 1400, etc) Your food should be the consistency of: Regular Your liquids should be the consistency of: Regular/Thin Discharge Activity: May not drive while taking narcotic pain medications., - - work up to walking for 30 minutes at least 5-6 times a week May resume sexual activity in: 10-14 days Call your doctor if your incision/area has: Continuous Slow Oozing, Sudden Increased Bleeding, Increased Pain/ Swelling, Increased Redness, Foul Smelling Discharge, Swelling at the incision site Call your doctor if you observe: Fever of 101 or Higher, Shortness of breath, Fainting spells, Swelling in the ankles, Chest pain Instructions: Tips for Quitting Smoking (Cardiovascular), Why Do You Smoke?, Planning to Quit Smoking, Getting Support for Quitting Smoking Additional Instructions: I strongly recommend that you quit all use of cocaine and other illicit drug. I also advise you to quit smoking. Allergies/Adverse Reactions: Allergies No Known Allergies Allergy (Verified 04/28/18 06:37) Medications to take at Discharge Magnesium Oxide [Mag-Ox 400] 400 mg PO DAILYCM #30 tab 08/08/16 Spironolactone [Aldactone] 25 mg PO DAILY #30 tab 08/08/16 Insulin Glargine,Hum.rec.anlog [Lu Fam U-100] 14 unit SQ DAILY 04/09/17 alprazolam 1 mg tablet 1 mg PO PRN PRN 30 Days #60 07/12/17 hydrocodone 10 mg-acetaminophen 325 mg tablet 1 tab PO PRN PRN 30 Days #120 07/12/17 sennosides 8.6 mg tablet 8.6 mg PO BID PRN 08/11/17 Hydrocodone Bitart/Apap 5-325 [[place] 5/325] 1 tab PO Q6H PRN PRN 2 Days #6 tab 10/24/17 Aspirin E.C. [Ecotrin] 81 mg PO DAILY@0800 #30 tablet 03/29/18 Clopidogrel Bisulfate [Plavix] 75 mg PO DAILY #30 tablet 03/29/18 Gabapentin [Neurontin] 800 mg PO BIDCM #60 tablet 03/29/18 Sertraline HCl [Zoloft] 1 tab PO DAILY #30 tablet 03/29/18 Atorvastatin Calcium [Lipitor] 40 mg PO BID 04/28/18 Carvedilol 3.125 mg PO BID 04/28/18 Furosemide [Lasix] 40 mg PO BID 04/28/18 Losartan Potassium [Cozaar] 25 mg PO DAILY 04/28/18 Potassium Chloride [Klor-Con] 10 meq PO DAILY 04/28/18 Isosorbide Mononitrate [Imdur] 30 mg PO DAILY@0700 #30 tab 05/01/18 Nitroglycerin [Nitrostat] 0.4 mg SUBLINGUAL Q5M PRN #1 bottle 05/01/18 The following prescriptions were given: Isosorbide Mononitrate [Imdur] 30 mg PO DAILY@0700 #30 tab Nitroglycerin [Nitrostat] 0.4 mg SUBLINGUAL Q5M PRN #1 bottle PRN Reason: Chest Pain Primary Care Physician: Jesus Child [Primary Care Provider] - Please follow up with your Primary Care Physician in: 5-7 days Test Results: Test results from this visit will be discussed in further detail at your follow-up appointment, if applicable. Please Follow Up With: Boaz Cabrera MD When: 1-2 weeks Proposed Discharge Date: 05/01/18
--- NOTE | 2018-05-01 07:15 | PCM.DC.SUM ---
Discharge Date and Diagnosis - Problem List Patient Problems: Active and Suspected Problems (Last Reviewed 04/28/18 @ 11:18 by Bro Hewitt DO) HFrEF (heart failure with reduced ejection fraction) (Acute) Elevated troponin (Acute) Date of Admission: 04/28/18 Date of Discharge: 05/01/18 - Primary Discharge Diagnosis Active and Suspected Problems (Last Reviewed 04/28/18 @ 11:18 by Bro Hewitt DO) NSTEMI type I Status post PTCA/MEHRDAD to the RCA Acute systolic congestive heart failure nonsustained ventricular tachycardia - Secondary Discharge Diagnosis Chronic Problems (Last Reviewed 04/28/18 @ 11:18 by Bro Hewitt DO) CAD (coronary artery disease) (Chronic) Severe left ventricular systolic dysfunction (Chronic) Polysubstance abuse (Chronic) marijuana, cocaine 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/28/17) SICD per Dr Berry @ [facility] Nicotine dependence (Chronic) Old myocardial infarction (Chronic) Hypertension (Chronic) History of coronary artery stent placement (Chronic) PCI-MEHRDAD-LAD 08/2014, [id number]-Mid CX and Prox-Mid RCA 03/18/15, Thrombosis of CX stent 03/25/15 Atherosclerosis of coronary artery of [place] heart without angina pectoris (Chronic) PCI-MEHRDAD-LAD 08/2014, VOF-[id number]-Mid CX and Prox-Mid RCA 03/18/15, Thrombosis of CX stent 03/25/15 Ischemic cardiomyopathy (Chronic) EF of 10-15% in March 2018 Hyperlipidemia (Chronic) Type 2 diabetes mellitus (Chronic)-uncontrolled Chronic systolic CHF (congestive heart failure) (Chronic) Hospital Course and Treatment Imaging Results: Clinical Impression(s) from Imaging Studies Chest X-Ray 04/28/18 06:42 IMPRESSION: 1. Previously seen bilateral pleural effusions are decreased in size or resolved. 2. Residual bibasilar airspace infiltrates or edema, worse on the right, without significant change. at 0804 Reported and signed by: Remi Ramos MD Electronically Signed: Remi Ramos, at 8:03 EST Tel , Service support , Brain CT 04/28/18 06:43 IMPRESSION: Normal unenhanced CT scan of the brain. Electronically Signed: Tr Guan MD at 8:07 EST Tel , Service support , Chest X-Ray 04/30/18 05:28 IMPRESSION: Mild residual CHF with small bilateral effusions although there has been improvement as compared to prior study. Electronically Signed: Nishant Masterson MD at 9:43 EST Tel [phone], Service support , Laboratory Results - last 24 hr 04/30/18 04/30/18 04/30/18 04:04 11:07 16:27 WBC RBC Hgb Hct MCV MCH MCHC RDW RDW Differential Plt Count MPV Immature Gran % (Auto) Neut % (Auto) Lymph % (Auto) [place] % (Auto) Eos % (Auto) Baso % (Auto) Absolute Neuts (auto) Absolute Lymphs (auto) Total Counted Sodium Potassium Chloride Carbon Dioxide Anion Gap BUN Creatinine Estim Creat Clear Calc Est GFR (MDRD) Af Amer Est GFR (MDRD) Non-Af BUN/Creatinine Ratio Glucose Hemoglobin A1c 8.7 H Calcium Phosphorus Magnesium Total Bilirubin Direct Bilirubin AST ALT Alkaline Phosphatase Total Protein Albumin Globulin Triglycerides Cholesterol LDL Cholesterol VLDL Cholesterol HDL Cholesterol POC Glucose 135 H 271 H 04/30/18 05/01/18 05/01/18 22:19 04:55 04:55 WBC 10.3 RBC 4.83 Hgb 14.7 Hct 41.7 MCV 86.3 MCH 30.4 MCHC 35.3 RDW 12.4 RDW Differential 38.4 Plt Count 195 MPV 10.7 Immature Gran % (Auto) 0.100 Neut % (Auto) 67.0 Lymph % (Auto) 19.8 [place] % (Auto) 6.6 Eos % (Auto) 6.3 H Baso % (Auto) 0.2 Absolute Neuts (auto) 6.9 Absolute Lymphs (auto) 2.05 Total Counted Not Reportable Sodium 138 Potassium 4.1 Chloride 103 Carbon Dioxide 25.0 Anion Gap 10 BUN 13 Creatinine 0.86 Estim Creat Clear Calc 125.32 Est GFR (MDRD) Af Amer 126 Est GFR (MDRD) Non-Af 104 BUN/Creatinine Ratio 15.0 Glucose 212 H Hemoglobin A1c Calcium 8.4 L Phosphorus 3.5 Magnesium 2.0 Total Bilirubin 0.50 Direct Bilirubin 0.13 AST 23 ALT 45 Alkaline Phosphatase 94 Total Protein 6.6 Albumin 3.1 L Globulin 3.5 Triglycerides 164 Cholesterol 149 LDL Cholesterol 71 VLDL Cholesterol 33 HDL Cholesterol 45 POC Glucose 204 H 05/01/18 06:58 WBC RBC Hgb Hct MCV MCH MCHC RDW RDW Differential Plt Count MPV Immature Gran % (Auto) Neut % (Auto) Lymph % (Auto) [place] % (Auto) Eos % (Auto) Baso % (Auto) Absolute Neuts (auto) Absolute Lymphs (auto) Total Counted Sodium Potassium Chloride Carbon Dioxide Anion Gap BUN Creatinine Estim Creat Clear Calc Est GFR (MDRD) Af Amer Est GFR (MDRD) Non-Af BUN/Creatinine Ratio Glucose Hemoglobin A1c Calcium Phosphorus Magnesium Total Bilirubin Direct Bilirubin AST ALT Alkaline Phosphatase Total Protein Albumin Globulin Triglycerides Cholesterol LDL Cholesterol VLDL Cholesterol HDL Cholesterol POC Glucose [address] [facility] Dr Gardner - interventional cardiology Operations: None Procedures: Cardiac catheterization - with PTCA/MEHRDAD to the RCA Summary of Care Provided: Mr. Mora is a 42-year-old male with a past medical history of severe left ventricular systolic dysfunction, polysubstance abuse, AICD present, tobacco dependence, hypertension, history of PTCA/drug-eluting stents to the LAD in August 2014 and to the proximal and mid circumflex and proximal mid RCA in March 2015, hyperlipidemia, type 2 diabetes mellitus and chronic systolic congestive heart failure who presented to the emergency room groggy and likely intoxicated complaining of chest pain after using cocaine. Initial troponin was 0.028 and BNP was 604. Chest x-ray was consistent with congestive heart failure. Urine drug screen was positive for amphetamines and cannabinoids. Troponin peaked at 4.22 and in the AM on 04/30 was 2.2 2. He was taken for cardiac catheterization and there was an occlusion of the RCA. He also had an occluded proximal circumflex. Intervention was performed and the patient had a PTCA/MEHRDAD to the RCA. Post stent the stenosis was 0%, down from 85%. Cardiac catheterization showed a 15% left ventricular ejection fraction. Post catheterization and intervention he was transferred to the intensive care unit. Overnight he had a 10 beat run of ventricular tachycardia at 9:30 PM and after that he only had rare PVCs. On the morning of discharge he denied chest pain, shortness of breath, palpitations. He was lying nearly flat in bed with no shortness of breath and no tachypnea. Labs showed a normal CBC, unremarkable BMP and a magnesium of 2.0. Hemoglobin A1c during his admission was 8.7. He was advised to stick to a carb controlled low salt, low fat diet. He was also advised to discontinue smoking and all illicit drug use. PHYSICAL EXAM: GENERAL: alert, oriented X 3, Cooperative, NAD ORAL: moist mucosa, no mucosal lesions NECK: mild JVD, supple, trachea midline LUNGS: CTA, symmetric chest expansion, no conversational dyspnea, no accessory muscle use, breath sounds are diminished throughout, lying nearly flat in bed with no tachypnea and no complaint of shortness of breath HEART: RRR, Normal S1 and S2, no rub, no gallop ABDOMEN: soft, NT, ND, BS present, no guarding with palpation EXTREMITIES: no edema, no cyanosis, no calf tenderness, the dressing at the cath site on the right wrist is dry and there is no swelling or pain present SKIN: No rashes, no breakdown, he has stasis dermatitis of his lower extremities with dry skin. NEUROLOGIC: no focal neurologic deficits PSYCH: appropriate, normal affect, pleasant, he seems to have an unrealistic expectation of a long life. We discussed his EF and what normal is. Has been using Cocaine once a week and his drug screen is positive for amphetamines but he denies amphetamine use. 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 Patient Problems: Active and Suspected Problems (Last Reviewed 04/28/18 @ 11:18 by Bro Hewitt DO) HFrEF (heart failure with reduced ejection fraction) (Acute) Elevated troponin (Acute) - Physical Exam Vital Signs Temp Pulse Resp BP Pulse Ox 98.0 F 89 17 132/93 H 100 05/01/18 03:00 05/01/18 07:00 05/01/18 07:00 05/01/18 07:00 05/01/18 07:00 Oxygen Flow Rate (L/min) 2 Oxygen Delivery Method Room Air Weight: 191 lb Body Mass Index (BMI) 26.1 Finger Stick Blood Glucose 119 Intake and Output for Last 24 Hours 04/29/18 04/30/18 05/01/18 23:59 23:59 23:59 Intake Total 1900 / 1900 400 / 400 680 / 680 Output Total 2800 / 2800 Balance 1900 / 1900 -2400 / -2400 680 / 680 Laboratory Tests Past 24 Hrs 04/30/18 05/01/18 05/01/18 04:04 04:55 04:55 WBC 10.3 RBC 4.83 Hgb 14.7 Hct 41.7 MCV 86.3 MCH 30.4 MCHC 35.3 RDW 12.4 RDW Differential 38.4 Plt Count 195 MPV 10.7 Immature Gran % (Auto) 0.100 Neut % (Auto) 67.0 Lymph % (Auto) 19.8 [place] % (Auto) 6.6 Eos % (Auto) 6.3 H Baso % (Auto) 0.2 Absolute Neuts (auto) 6.9 Absolute Lymphs (auto) 2.05 Total Counted Not Reportable Sodium 138 Potassium 4.1 Chloride 103 Carbon Dioxide 25.0 Anion Gap 10 BUN 13 Creatinine 0.86 Estim Creat Clear Calc 125.32 Est GFR (MDRD) Af Amer 126 Est GFR (MDRD) Non-Af 104 BUN/Creatinine Ratio 15.0 Glucose 212 H Hemoglobin A1c 8.7 H Calcium 8.4 L Phosphorus 3.5 Magnesium 2.0 Total Bilirubin 0.50 Direct Bilirubin 0.13 AST 23 ALT 45 Alkaline Phosphatase 94 Total Protein 6.6 Albumin 3.1 L Globulin 3.5 Triglycerides 164 Cholesterol 149 LDL Cholesterol 71 VLDL Cholesterol 33 HDL Cholesterol 45 POC Glucose 05/01/18 04/30/18 04/30/18 06:58 22:19 16:27 POC Glucose 239 H 204 H 271 H 04/30/18 11:07 POC Glucose 135 H Discharge Activity: May not drive while taking narcotic pain medications., - - work up to walking for 30 minutes at least 5-6 times a week May resume sexual activity in: 10-14 days Call your doctor if your incision/area has: Continuous Slow Oozing, Sudden Increased Bleeding, Increased Pain/ Swelling, Increased Redness, Foul Smelling Discharge, Swelling at the incision site Call your doctor if you observe: Fever of 101 or Higher, Shortness of breath, Fainting spells, Swelling in the ankles, Chest pain Home Medications: Medications to take at Discharge Magnesium Oxide [Mag-Ox 400] 400 mg PO DAILYCM #30 tab 08/08/16 Spironolactone [Aldactone] 25 mg PO DAILY #30 tab 08/08/16 Insulin Glargine,Hum.rec.anlog [Basaglar Kwikpen U-100] 14 unit SQ DAILY 04/09/17 alprazolam 1 mg tablet 1 mg PO PRN PRN 30 Days #60 07/12/17 hydrocodone 10 mg-acetaminophen 325 mg tablet 1 tab PO PRN PRN 30 Days #120 07/12/17 sennosides 8.6 mg tablet 8.6 mg PO BID PRN 08/11/17 Hydrocodone Bitart/Apap 5-325 [[place] 5/325] 1 tab PO Q6H PRN PRN 2 Days #6 tab 10/24/17 Aspirin E.C. [Ecotrin] 81 mg PO DAILY@0800 #30 tablet 03/29/18 Clopidogrel Bisulfate [Plavix] 75 mg PO DAILY #30 tablet 03/29/18 Gabapentin [Neurontin] 800 mg PO BIDCM #60 tablet 03/29/18 Sertraline HCl [Zoloft] 1 tab PO DAILY #30 tablet 03/29/18 Atorvastatin Calcium [Lipitor] 40 mg PO BID 04/28/18 Carvedilol 3.125 mg PO BID 04/28/18 Furosemide [Lasix] 40 mg PO BID 04/28/18 Losartan Potassium [Cozaar] 25 mg PO DAILY 04/28/18 Potassium Chloride [Klor-Con] 10 meq PO DAILY 04/28/18 Isosorbide Mononitrate [Imdur] 30 mg PO DAILY@0700 #30 tab 05/01/18 Nitroglycerin [Nitrostat] 0.4 mg SUBLINGUAL Q5M PRN #1 bottle 05/01/18 Following Prescrptions Were Given to Patient: Isosorbide Mononitrate [Imdur] 30 mg PO DAILY@0700 #30 tab Nitroglycerin [Nitrostat] 0.4 mg SUBLINGUAL Q5M PRN #1 bottle PRN Reason: Chest Pain Primary Care Physician: Jesus Child [Primary Care Provider] - Please follow up with your Primary Care Physician in: 5-7 days Please Follow Up With: Boaz Cabrera MD When: 1-2 weeks Patient Instructions: Tips for Quitting Smoking (Cardiovascular), Why Do You Smoke?, Planning to Quit Smoking, Getting Support for Quitting Smoking Disposition: Home Minutes spent on discharge:: 35 Medical Necessity - Tobacco Use Smoking Status: Current every day smoker Tobacco Use: Cigarettes, - - Marijuana Meaningful Use Info Meaningful Use Diagnoses (Choose all that apply): AMI - AMI Aspirin given w/in 24hrs of arrival?: Yes ASA at discharge?: Yes Statins at discharge?: Yes Jimmy/ARB at discharge?: Yes Beta [place] at discharge?: Yes Done w/ Acute VT measure.: Yes Code Visit Inpatient E&M: 25229 Disch Hosp
--- NOTE | 2018-05-01 07:18 | DS.PCM_ITS ---
Discharge Date and Diagnosis - Problem List Patient Problems: Active and Suspected Problems (Last Reviewed 04/28/18 @ 11:18 by Bro Hewitt DO) HFrEF (heart failure with reduced ejection fraction) (Acute) Elevated troponin (Acute) Date of Admission: 04/28/18 Date of Discharge: 05/01/18 - Primary Discharge Diagnosis Active and Suspected Problems (Last Reviewed 04/28/18 @ 11:18 by Bro Hewitt DO) NSTEMI type I Status post PTCA/MEHRDAD to the RCA Acute systolic congestive heart failure nonsustained ventricular tachycardia - Secondary Discharge Diagnosis Chronic Problems (Last Reviewed 04/28/18 @ 11:18 by Bro Hewitt DO) CAD (coronary artery disease) (Chronic) Severe left ventricular systolic dysfunction (Chronic) Polysubstance abuse (Chronic) marijuana, cocaine 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/28/17) SICD per Dr Berry @ [facility] Nicotine dependence (Chronic) Old myocardial infarction (Chronic) Hypertension (Chronic) History of coronary artery stent placement (Chronic) PCI-MEHRDAD-LAD 08/2014, UEA-[id number]-Bbys-Mid CX and Prox-Mid RCA 03/18/15, Thrombosis of CX stent 03/25/15 Atherosclerosis of coronary artery of [place] heart without angina pectoris (Chronic) PCI-MEHRDAD-LAD 08/2014, VOF-UNC-Ckwv-Mid CX and Prox-Mid RCA 03/18/15, Thrombosis of CX stent 03/25/15 Ischemic cardiomyopathy (Chronic) EF of 10-15% in March 2018 Hyperlipidemia (Chronic) Type 2 diabetes mellitus (Chronic)-uncontrolled Chronic systolic CHF (congestive heart failure) (Chronic) Hospital Course and Treatment Imaging Results: Clinical Impression(s) from Imaging Studies Chest X-Ray 04/28/18 06:42 IMPRESSION: 1. Previously seen bilateral pleural effusions are decreased in size or resolved. 2. Residual bibasilar airspace infiltrates or edema, worse on the right, without significant change. at 0804 Reported and signed by: Remi Ramos MD Electronically Signed: Remi Ramos, at 8:03 EST Tel , Service support , Brain CT 04/28/18 06:43 IMPRESSION: Normal unenhanced CT scan of the brain. Electronically Signed: Tr Guan MD at 8:07 EST Tel , Service support , Chest X-Ray 04/30/18 05:28 IMPRESSION: Mild residual CHF with small bilateral effusions although there has been improvement as compared to prior study. Electronically Signed: Nishant Masterson MD at 9:43 EST Tel [phone], Service support , Laboratory Results - last 24 hr 04/30/18 04/30/18 04/30/18 04:04 11:07 16:27 WBC RBC Hgb Hct MCV MCH MCHC RDW RDW Differential Plt Count MPV Immature Gran % (Auto) Neut % (Auto) Lymph % (Auto) [place] % (Auto) Eos % (Auto) Baso % (Auto) Absolute Neuts (auto) Absolute Lymphs (auto) Total Counted Sodium Potassium Chloride Carbon Dioxide Anion Gap BUN Creatinine Estim Creat Clear Calc Est GFR (MDRD) Af Amer Est GFR (MDRD) Non-Af BUN/Creatinine Ratio Glucose Hemoglobin A1c 8.7 H Calcium Phosphorus Magnesium Total Bilirubin Direct Bilirubin AST ALT Alkaline Phosphatase Total Protein Albumin Globulin Triglycerides Cholesterol LDL Cholesterol VLDL Cholesterol HDL Cholesterol POC Glucose 135 H 271 H 04/30/18 05/01/18 05/01/18 22:19 04:55 04:55 WBC 10.3 RBC 4.83 Hgb 14.7 Hct 41.7 MCV 86.3 MCH 30.4 MCHC 35.3 RDW 12.4 RDW Differential 38.4 Plt Count 195 MPV 10.7 Immature Gran % (Auto) 0.100 Neut % (Auto) 67.0 Lymph % (Auto) 19.8 [place] % (Auto) 6.6 Eos % (Auto) 6.3 H Baso % (Auto) 0.2 Absolute Neuts (auto) 6.9 Absolute Lymphs (auto) 2.05 Total Counted Not Reportable Sodium 138 Potassium 4.1 Chloride 103 Carbon Dioxide 25.0 Anion Gap 10 BUN 13 Creatinine 0.86 Estim Creat Clear Calc 125.32 Est GFR (MDRD) Af Amer 126 Est GFR (MDRD) Non-Af 104 BUN/Creatinine Ratio 15.0 Glucose 212 H Hemoglobin A1c Calcium 8.4 L Phosphorus 3.5 Magnesium 2.0 Total Bilirubin 0.50 Direct Bilirubin 0.13 AST 23 ALT 45 Alkaline Phosphatase 94 Total Protein 6.6 Albumin 3.1 L Globulin 3.5 Triglycerides 164 Cholesterol 149 LDL Cholesterol 71 VLDL Cholesterol 33 HDL Cholesterol 45 POC Glucose 204 H 05/01/18 06:58 WBC RBC Hgb Hct MCV MCH MCHC RDW RDW Differential Plt Count MPV Immature Gran % (Auto) Neut % (Auto) Lymph % (Auto) [place] % (Auto) Eos % (Auto) Baso % (Auto) Absolute Neuts (auto) Absolute Lymphs (auto) Total Counted Sodium Potassium Chloride Carbon Dioxide Anion Gap BUN Creatinine Estim Creat Clear Calc Est GFR (MDRD) Af Amer Est GFR (MDRD) Non-Af BUN/Creatinine Ratio Glucose Hemoglobin A1c Calcium Phosphorus Magnesium Total Bilirubin Direct Bilirubin AST ALT Alkaline Phosphatase Total Protein Albumin Globulin Triglycerides Cholesterol LDL Cholesterol VLDL Cholesterol HDL Cholesterol POC Glucose [address] [facility] Dr Gardner - interventional cardiology Operations: None Procedures: Cardiac catheterization - with PTCA/MEHRDAD to the RCA Summary of Care Provided: Mr. Mora is a 42-year-old male with a past medical history of severe left ventricular systolic dysfunction, polysubstance abuse, AICD present, tobacco dependence, hypertension, history of PTCA/drug-eluting stents to the LAD in August 2014 and to the proximal and mid circumflex and proximal mid RCA in March 2015, hyperlipidemia, type 2 diabetes mellitus and chronic systolic congestive heart failure who presented to the emergency room groggy and likely intoxicated complaining of chest pain after using cocaine. Initial troponin was 0.028 and BNP was 604. Chest x-ray was consistent with congestive heart failure. Urine drug screen was positive for amphetamines and cannabinoids. Troponin peaked at 4.22 and in the AM on 04/30 was 2.2 2. He was taken for cardiac catheterization and there was an occlusion of the RCA. He also had an occluded proximal circumflex. Intervention was performed and the patient had a PTCA/MEHRDAD to the RCA. Post stent the stenosis was 0%, down from 85%. Cardiac catheterization showed a 15% left ventricular ejection fraction. Post catheterization and intervention he was transferred to the intensive care unit. Overnight he had a 10 beat run of ventricular tachycardia at 9:30 PM and after that he only had rare PVCs. On the morning of discharge he denied chest pain, shortness of breath, palpitations. He was lying nearly flat in bed with no shortness of breath and no tachypnea. Labs showed a normal CBC, unremarkable BMP and a magnesium of 2.0. Hemoglobin A1c during his admission was 8.7. He was advised to stick to a carb controlled low salt, low fat diet. He was also advised to discontinue smoking and all illicit drug use. PHYSICAL EXAM: GENERAL: alert, oriented X 3, Cooperative, NAD ORAL: moist mucosa, no mucosal lesions NECK: mild JVD, supple, trachea midline LUNGS: CTA, symmetric chest expansion, no conversational dyspnea, no accessory muscle use, breath sounds are diminished throughout, lying nearly flat in bed with no tachypnea and no complaint of shortness of breath HEART: RRR, Normal S1 and S2, no rub, no gallop ABDOMEN: soft, NT, ND, BS present, no guarding with palpation EXTREMITIES: no edema, no cyanosis, no calf tenderness, the dressing at the cath site on the right wrist is dry and there is no swelling or pain present SKIN: No rashes, no breakdown, he has stasis dermatitis of his lower extremities with dry skin. NEUROLOGIC: no focal neurologic deficits PSYCH: appropriate, normal affect, pleasant, he seems to have an unrealistic expectation of a long life. We discussed his EF and what normal is. Has been using Cocaine once a week and his drug screen is positive for amphetamines but he denies amphetamine use. 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 Patient Problems: Active and Suspected Problems (Last Reviewed 04/28/18 @ 11:18 by Bro Hewitt DO) HFrEF (heart failure with reduced ejection fraction) (Acute) Elevated troponin (Acute) - Physical Exam Vital Signs Temp Pulse Resp BP Pulse Ox 98.0 F 89 17 132/93 H 100 05/01/18 03:00 05/01/18 07:00 05/01/18 07:00 05/01/18 07:00 05/01/18 07:00 Oxygen Flow Rate (L/min) 2 Oxygen Delivery Method Room Air Weight: 191 lb Body Mass Index (BMI) 26.1 Finger Stick Blood Glucose 119 Intake and Output for Last 24 Hours 04/29/18 04/30/18 05/01/18 23:59 23:59 23:59 Intake Total 1900 / 1900 400 / 400 680 / 680 Output Total 2800 / 2800 Balance 1900 / 1900 -2400 / -2400 680 / 680 Laboratory Tests Past 24 Hrs 04/30/18 05/01/18 05/01/18 04:04 04:55 04:55 WBC 10.3 RBC 4.83 Hgb 14.7 Hct 41.7 MCV 86.3 MCH 30.4 MCHC 35.3 RDW 12.4 RDW Differential 38.4 Plt Count 195 MPV 10.7 Immature Gran % (Auto) 0.100 Neut % (Auto) 67.0 Lymph % (Auto) 19.8 [place] % (Auto) 6.6 Eos % (Auto) 6.3 H Baso % (Auto) 0.2 Absolute Neuts (auto) 6.9 Absolute Lymphs (auto) 2.05 Total Counted Not Reportable Sodium 138 Potassium 4.1 Chloride 103 Carbon Dioxide 25.0 Anion Gap 10 BUN 13 Creatinine 0.86 Estim Creat Clear Calc 125.32 Est GFR (MDRD) Af Amer 126 Est GFR (MDRD) Non-Af 104 BUN/Creatinine Ratio 15.0 Glucose 212 H Hemoglobin A1c 8.7 H Calcium 8.4 L Phosphorus 3.5 Magnesium 2.0 Total Bilirubin 0.50 Direct Bilirubin 0.13 AST 23 ALT 45 Alkaline Phosphatase 94 Total Protein 6.6 Albumin 3.1 L Globulin 3.5 Triglycerides 164 Cholesterol 149 LDL Cholesterol 71 VLDL Cholesterol 33 HDL Cholesterol 45 POC Glucose 05/01/18 04/30/18 04/30/18 06:58 22:19 16:27 POC Glucose 239 H 204 H 271 H 04/30/18 11:07 POC Glucose 135 H Discharge Activity: May not drive while taking narcotic pain medications., - - work up to walking for 30 minutes at least 5-6 times a week May resume sexual activity in: 10-14 days Call your doctor if your incision/area has: Continuous Slow Oozing, Sudden Increased Bleeding, Increased Pain/ Swelling, Increased Redness, Foul Smelling Discharge, Swelling at the incision site Call your doctor if you observe: Fever of 101 or Higher, Shortness of breath, Fainting spells, Swelling in the ankles, Chest pain Home Medications: Medications to take at Discharge Magnesium Oxide [Mag-Ox 400] 400 mg PO DAILYCM #30 tab 08/08/16 Spironolactone [Aldactone] 25 mg PO DAILY #30 tab 08/08/16 Insulin Glargine,Hum.rec.anlog [Basaglar Kwikpen U-100] 14 unit SQ DAILY 04/09/17 alprazolam 1 mg tablet 1 mg PO PRN PRN 30 Days #60 07/12/17 hydrocodone 10 mg-acetaminophen 325 mg tablet 1 tab PO PRN PRN 30 Days #120 07/12/17 sennosides 8.6 mg tablet 8.6 mg PO BID PRN 08/11/17 Hydrocodone Bitart/Apap 5-325 [[place] 5/325] 1 tab PO Q6H PRN PRN 2 Days #6 tab 10/24/17 Aspirin E.C. [Ecotrin] 81 mg PO DAILY@0800 #30 tablet 03/29/18 Clopidogrel Bisulfate [Plavix] 75 mg PO DAILY #30 tablet 03/29/18 Gabapentin [Neurontin] 800 mg PO BIDCM #60 tablet 03/29/18 Sertraline HCl [Zoloft] 1 tab PO DAILY #30 tablet 03/29/18 Atorvastatin Calcium [Lipitor] 40 mg PO BID 04/28/18 Carvedilol 3.125 mg PO BID 04/28/18 Furosemide [Lasix] 40 mg PO BID 04/28/18 Losartan Potassium [Cozaar] 25 mg PO DAILY 04/28/18 Potassium Chloride [Klor-Con] 10 meq PO DAILY 04/28/18 Isosorbide Mononitrate [Imdur] 30 mg PO DAILY@0700 #30 tab 05/01/18 Nitroglycerin [Nitrostat] 0.4 mg SUBLINGUAL Q5M PRN #1 bottle 05/01/18 Following Prescrptions Were Given to Patient: Isosorbide Mononitrate [Imdur] 30 mg PO DAILY@0700 #30 tab Nitroglycerin [Nitrostat] 0.4 mg SUBLINGUAL Q5M PRN #1 bottle PRN Reason: Chest Pain Primary Care Physician: Jesus Child [Primary Care Provider] - Please follow up with your Primary Care Physician in: 5-7 days Please Follow Up With: Boaz Cabrera MD When: 1-2 weeks Patient Instructions: Tips for Quitting Smoking (Cardiovascular), Why Do You Smoke?, Planning to Quit Smoking, Getting Support for Quitting Smoking Disposition: Home Minutes spent on discharge:: 35 Medical Necessity - Tobacco Use Smoking Status: Current every day smoker Tobacco Use: Cigarettes, - - Marijuana Meaningful Use Info Meaningful Use Diagnoses (Choose all that apply): AMI - AMI Aspirin given w/in 24hrs of arrival?: Yes ASA at discharge?: Yes Statins at discharge?: Yes Jimmy/ARB at discharge?: Yes Beta [place] at discharge?: Yes Done w/ Acute HI measure.: Yes Code Visit Inpatient E&M: 65496 Disch Hosp
[2018-05-01] MEDS: Carvedilol 3.125 MG TABLET PO (08:30)
[2018-05-01] MEDS: Clopidogrel Bisulfate 75 MG Tablet PO (08:30)
[2018-05-01] MEDS: Atorvastatin Calcium 40 MG Tablet PO (08:30)
[2018-05-01] MEDS: Losartan Potassium 25 MG Tablet PO (08:30)
[2018-05-01] MEDS: Spironolactone 25 MG Tablet PO (08:30)
[2018-05-01] MEDS: Magnesium Oxide 400 MG Tablet PO (08:30)
[2018-05-01] MEDS: Sertraline 50 MG Tablet PO (08:30)
[2018-05-01] MEDS: Gabapentin 800 MG Tablet PO (08:30)
[2018-05-01] MEDS: Insulin Lispro 100 UNIT/ML INSULN.PEN SQ (08:30)
[2018-05-01] MEDS: Aspirin E.C. 81 MG Tablet PO (08:30)
--- NOTE | 2018-05-01 10:00 | EKG12_ITS ---
Test Reason : AM EKG Blood Pressure : / mmHG Vent. Rate : 089 BPM Atrial Rate : 089 BPM P-R Int : 156 ms QRS Dur : 088 ms QT Int : 384 ms P-R-T Axes : 063 -55 084 degrees QTc Int : 467 ms Normal sinus rhythm Left anterior fascicular block Anteroseptal infarct , age undetermined Abnormal ECG Confirmed by KATRINA MCKEON, SAMANTHA ([id number]), market editor EDELMIRA RIVAS ([id number]) on 05/04/2018 3:16:45 PM Referred By: DR ISSA Confirmed By:SAMANTHA HERNDON MD
--- NOTE | 2018-05-01 10:31 | NURSING ---
0830: a friend called and stated she was at the front door of the hospital ready to pick him up. We informed the patient that the utility manager needed to see him prior to discharge. The patient stated he needs to go to [place] today and needs to leave soon 1000: Pt took all VS leads off, got dressed and stated he was leaving. Dr Cabrera arrived in ICU at the same time. Dr. Cabrera was able to speak to and assess the patient pior to discharge. The patient stated he would take him scheduled medicine at home. DC instructions reviewed with patient.
--- NOTE | 2018-05-02 11:24 | CASEMGMT ---
ILEANA GUAJARDO DC PHONE CALL DC DATE: 05/01/17 DC Disposition: Home LACE/STRATA: 01/31 Call to number given. Was incorrect number but was friend of pt who gave RN CASANDRA correct #. Call and intro role of CM to patient who was noncommunicative and did not wish to discuss dc instructions. Pt stated he was going to follow up with cardiology. Correct phone number entered in chart. Irving SERRANO RN ACM
== END 2018-05-01 10:20 | disposition home or self-care (01) | DRG 174 ==
LOC: ED 07:58 → PCU 08:26 → ICU 04-30 10:18
PROVIDERS: Emergency Medicine; Hospitalist; Internal Medicine Cardiovascular Disease; Emergency Provider Emergency Medicine; Family Provider Family Medicine; PCP Family Medicine; Visit Provider Internal Medicine
DX: I21.4 Non-ST elevation (NSTEMI) myocardial infarction (principal); I11.0 Hypertensive heart disease with heart failure; I25.10 Atherosclerotic heart disease of native coronary artery without angina pectoris; I25.5 Ischemic cardiomyopathy; I50.23 Acute on chronic systolic (congestive) heart failure; E78.5 Hyperlipidemia, unspecified; I47.2 Ventricular tachycardia; Z23 Encounter for immunization; E11.65 Type 2 diabetes mellitus with hyperglycemia; F14.10 Cocaine abuse, uncomplicated; F12.10 Cannabis abuse, uncomplicated; I25.2 Old myocardial infarction; Z95.810 Presence of automatic (implantable) cardiac defibrillator; Z79.4 Long term (current) use of insulin; Z95.5 Presence of coronary angioplasty implant and graft; F17.210 Nicotine dependence, cigarettes, uncomplicated
CPT/HCPCS: 36415; 36600; 70450; 71045; 80048; 80061; 80076; 80307; 82140; 82803; 82962; 83036; 83735; 83880; 84100; 84484; 85025; 85610; 85730; 92928; 93005; 93458; 99152; 99153; 99285; 99406; Q9967; 90686; A4216; C1725; C1769; C1874; C1887; C1894; C9600; J0583; J1940

== ENCOUNTER 2018-05-13 02:16 | Emergency (ER) | payer MEDICAID, SELFPAY ==
[2018-04-28 08:59] VITALS: BMI 26.1
[2018-04-30 13:15] VITALS: BMI 25.9
[2018-05-13 02:16] VITALS: BP 159/103; PULSE 114; RESP 20; TEMP 36.8; O2SAT 97; BMI 25.9
--- NOTE | 2018-05-13 02:26 | EKG12_ITS ---
Test Reason : SOB Blood Pressure : / mmHG Vent. Rate : 110 BPM Atrial Rate : 110 BPM P-R Int : 162 ms QRS Dur : 088 ms QT Int : 334 ms P-R-T Axes : 057 -52 086 degrees QTc Int : 452 ms Sinus tachycardia Possible Left atrial enlargement Left axis deviation Anteroseptal infarct , age undetermined Abnormal ECG Confirmed by CHAR MCKEON, HAIM ([id number]), communications editor EDELMIRA RIVAS ([id number]) on 05/15/2018 4:46:48 PM Referred By: DC Confirmed By:HAIM PARDO MD
--- NOTE | 2018-05-13 02:26 | RAD_ITS ---
STUDY: X-RAY CHEST REASON FOR EXAM: Male, 42 years old. Shortness of breath TECHNIQUE: Single frontal view of the chest. COMPARISON: April 30, 2018. FINDINGS: EKG leads artifacts. Cardiac pacemaker device. Cardiomegaly. Again noted bilateral pleural effusions with pulmonary vascular congestion/edema. This appears relatively similar to prior exam. No focal consolidation. No pneumothorax. Normal visualized thoracic spine. Normal visualized ribs, clavicles, and shoulders. There is no demonstrated abnormality of the visualized soft tissue structures of the upper abdomen. RAD/Chest 1 View (Portable) IMPRESSION: Similar appearance to the cardiomegaly with bilateral pleural effusions and pulmonary vascular congestion/edema. Electronically Signed: Chad Elizalde, at 3:22 EST Tel , Service support ,
[2018-05-13 02:30] VITALS: O2SAT 98
[2018-05-13] MEDS: Ipratropium/Albuterol Sulfate 3 ML AMPUL.NEB INHALATION (02:32)
[2018-05-13 02:39] VITALS: PULSE 110; RESP 20
[2018-05-13 02:44] LABS: Absolute Neutrophil Count 5.7 X10^3/uL (2.0-7.7); Basophil# 0.01 X10^3/uL; Basophil% 0.1 % (0-1); Eosinophil# 0.36 X10^3/uL; Eosinophils% 3.7 % (0-5); Hematocrit 42.9 % (40-54); Hemoglobin 14.5 g/dl (13.0-16.5); Lymphocyte % 30.9 % (19-41); Mean Corp Hgb Conc 33.8 g/gl (32-36); Mean Corpuscular Hgb 30.3 pg (27.0-32.0); Mean Corpuscular Volume 89.7 fL (80-94); Mean Platelet Vol. 9.8 fl (6.2-12.0); Monocyte# 0.62 X10^3/uL; Monocyte% 6.4 % (0-10); Neutrophil # 5.72 X10^3/uL (2.7-7.7); Neutrophil % 58.8 % (47-70); POSITIVE COUNT NO; POSITIVE DIFFERENTIAL NO; POSITIVE MORPHOLOGY NO; Platelet Count 222 K/mm3 (150-450); RBC Distribution Width CV 13.2 % (11.6-14.6); RBC Distribution Width SD 42.8 fl (35.1-43.9); Red Blood Count 4.78 M/mm3 (4.6-6.2); White Blood Count 9.7 K/mm3 (4.4-11.0)
[2018-05-13 03:09] LABS: Anion Gap 7 (5-15); BUN 11 mg/dL (7-18); BUN/Creat Ratio 12.7 RATIO (10-20); Calcium,Total 8.4 mg/dL (8.5-10.1); Chloride 108 mmol/L (98-107); Creatinine, Serum 0.86 mg/dL (0.70-1.30); EST Glomerular Filtration Rate 104 mL/min (>60); Est Glom Filt Rate - Afr Amer 126 mL/min (>60); Estimated Creatinine Clearance 129.04 ml/min; Glucose 175 mg/dL (74-106); Potassium 5.2 mmol/L (3.5-5.1); Sodium Level 138 mmol/L (136-145)
--- NOTE | 2018-05-13 03:38 | ED.RN ---
TRACEY drain removed and flushed as instructed by Surgeon. Drained flushed easily. Culture taken from PT side of drain. TRACEY drain reattached. Pending admission and room number.
[2018-05-13 03:51] VITALS: O2SAT 94
--- NOTE | 2018-05-13 03:54 | ED.DCSUM_ITS ---
- ER Visit Summary Date of Service: 05/13/18 Chief Complaint: Shortness of breath History of Present Illness: The patient is a 42 M with shortness of breath. Symptoms started gradually over the last 2 days. He also reports swelling in his legs, but denies any other associated symptoms. He was recently admitted to the hospital for NSTEMI and CHF. He has an ejection fraction of 15%. He said he does not have access to his medications and has not been taking his Lasix and other medications over the last couple days. He has a history of smoking as well as cocaine and THC use. Denies cough, sputum, or fever. Denies any history of PE. He is denying chest pain or GI symptoms. He says he has not us ed cocaine recently. Physical Examination: Patient is tachycardic but otherwise vitals unremarkable. Afebrile. HEENT exam unremarkable. Patient has mild expiratory wheeze in all song. Heart tachycardic but regular. Abdomen soft and nontender. Extremities show 1+ symmetric edema, nontender. Pulses are equal. Test Results: EKG showed sinus tachycardia with nonspecific changes. No sign of acute ischemia or infarction pattern. BNP 600. Troponin normal. Labs otherwise unremarkable. Chest x-ray showed signs of congestion. Emergency Department Course and Treatment: Patient has a history of CHF and is noncompliant with his medication. He also has expiratory wheeze but no other symptoms of infection. No history of PE. No chest pain. Patient placed on a monitor. EKG was unremarkable for tachycardia. He was treated with a DuoNeb treatment. On reevaluation, his lungs were clear and his symptoms have improved greatly. Patient's workup was consistent with CHF. Potassium was slightly elevated at 5.2 but the sample was hemolyzed. On repeat reevaluation, he was feeling better. He ambulated without difficulty. No shortness of breath. No oxygen desaturation. He was treated with Lasix here. He feels better and would like to go home. He does not have access to his medications, so I did refill his medications including Lasix and his other medications except for his controlled substances. Patient will be discharged to follow-up with his doctor. Return for any new or worsening issues. Treatment Plan: As above Disposition: Discharge Impression: 1. CHF 2. Medication nonadherence This note was generated with [employer] software. It may contain incorrect words, spelling, and punctuation that were not noted in review of the chart prior to signing ED Disposition - Plan for ED Patient: Disposition: Home or Assisted Living Chief Complaint: Shortness of Breath Instructions: ED CHF General, ED COPD Flare Prescriptions: RX: Aspirin E.C. [Ecotrin] 81 mg PO DAILY@0800 #30 tab Clopidogrel Bisulfate [Plavix] 75 mg PO DAILY #30 tab RX: Insulin Glargine,Hum.rec.anlog [Basaglar Kwikpen U-100] 14 unit SUBCUT DAILY #420 unit Isosorbide Mononitrate [Imdur] 30 mg PO DAILY #30 tab Losartan Potassium [Cozaar] 25 mg PO DAILY #30 tab RX: Magnesium Oxide [Magox 400] 400 mg PO DAILY #30 tab Nitroglycerin [Nitrostat] 0.4 mg SUBLINGUAL Q5M PRN #1 bottle PRN Reason: Chest Pain RX: Sertraline HCl [Zoloft] 50 mg PO DAILY #30 tab RX: Spironolactone 25 mg PO DAILY #30 tab RX: Atorvastatin Calcium 40 mg PO BID #60 tab RX: Carvedilol 3.125 mg PO BID #60 tab Furosemide [Lasix] 40 mg PO BID #60 tab Referrals: Jesus Child [Primary Care Provider] -
--- NOTE | 2018-05-13 03:54 | ED.DEP ---
ED Disposition - Plan for ED Patient: Chief Complaint: Shortness of Breath Instructions: ED CHF General, ED COPD Flare Prescriptions: Aspirin E.C. [Ecotrin] 81 mg PO DAILY@0800 #30 tab Clopidogrel Bisulfate [Plavix] 75 mg PO DAILY #30 tab Insulin Glargine,Hum.rec.anlog [Basaglar Kwikpen U-100] 14 unit SUBCUT DAILY #420 unit Isosorbide Mononitrate [Imdur] 30 mg PO DAILY #30 tab Losartan Potassium [Cozaar] 25 mg PO DAILY #30 tab Magnesium Oxide [Magox 400] 400 mg PO DAILY #30 tab Nitroglycerin [Nitrostat] 0.4 mg SUBLINGUAL Q5M PRN #1 bottle PRN Reason: Chest Pain Sertraline HCl [Zoloft] 50 mg PO DAILY #30 tab Spironolactone 25 mg PO DAILY #30 tab Atorvastatin Calcium 40 mg PO BID #60 tab Carvedilol 3.125 mg PO BID #60 tab Furosemide [Lasix] 40 mg PO BID #60 tab Referrals: Jesus Child [Primary Care Provider] -
[2018-05-13 04:00] VITALS: PULSE 110; RESP 18
[2018-05-13] MEDS: Furosemide 40 MG Tablet PO (04:04)
[2018-05-13] MEDS: Albuterol 2.5 MG/3 ML VIAL.NEB. INHALATION (04:04)
[2018-05-13 04:15] VITALS: BP 145/90; PULSE 102; RESP 20; O2SAT 96
[2018-05-13 04:29] LABS: BNP,B-Type NATRIURETIC PEPTIDE 603.3 pg/mL (0-100)
== END 2018-05-13 04:16 | disposition home or self-care (01) ==
PROVIDERS: Emergency Provider Emergency Medicine; Family Provider Family Medicine; PCP Family Medicine
DX: I11.0 Hypertensive heart disease with heart failure (principal); I50.9 Heart failure, unspecified; Z91.14 Patient's other noncompliance with medication regimen; I25.2 Old myocardial infarction; E78.00 Pure hypercholesterolemia, unspecified; E11.9 Type 2 diabetes mellitus without complications; I25.5 Ischemic cardiomyopathy; Z72.0 Tobacco use; Z79.4 Long term (current) use of insulin; Z79.899 Other long term (current) drug therapy
CPT/HCPCS: 71045; 80048; 83880; 84484; 85025; 93005; 94640; 99284; A4216

== ENCOUNTER 2018-05-26 10:00 | Emergency (ER) | payer MEDICAID, SELFPAY ==
[2018-04-30 13:15] VITALS: BMI 25.9
[2018-05-14 10:05] VITALS: BMI 26.1
[2018-05-26 10:01] VITALS: BP 139/96; PULSE 108; RESP 20; TEMP 36.6; O2SAT 100; BMI 27.1
--- NOTE | 2018-05-26 10:16 | ED.DCSUM_ITS ---
- ER Visit Summary Date of Service: 05/26/18 Chief Complaint: Shortness of breath History of Present Illness: The patient is a 42 M who presents with shortness of breath and cough. Is been ongoing for 2 days. His shortness of breath is worse with exertion. Is better with rest. He has had a cough productive of sputum. He admits to sweats but no fevers. He also has had rhinorrhea. He denies chest pain. He is a history of neuropathy, multiple heart attacks and CHF. His last ejection fraction was 15%. He is out of his inhaler but did do nebulizer treatments all night. Physical Examination: Vital signs reviewed. 100% on room air. HEENT exam reveals sinus congestion bilaterally. Heart is regular rate and rhythm. Lungs have bilateral respiratory and expiratory wheezing. Abdomen soft and nontender. Extremities reveal no edema. His neurologic exam is normal. Test Results: Chest x-ray reveals evidence of bilateral lower lobe edema versus infiltrates. This is unchanged from an x-ray done previously. Emergency Department Course and Treatment: The patient is 100% on room air upon arrival. I gave him 1 DuoNeb and albuterol treatments. I also gave him prednisone. He is asking something for pain and anxiety so he was given naproxen and Vistaril. He has no fever. He is not tachycardic. I do not feel he should be admitted to the hospital. I will treat him as an outpatient with prednisone and antibiotics. I will give him naproxen and Vistaril for his pain and anxiety at home. He will need to follow-up with his PCP for further medications. Treatment Plan: [] Disposition: Discharge Impression: Asthma exacerbation, anxiety This note was generated with [employer] dictation software. It may contain incorrect words, spelling, and punctuation that were not noted in review of the chart prior to signing ED Disposition - Plan for ED Patient: Chief Complaint: Shortness of Breath Referrals: Jesus Child [Primary Care Provider] -
[2018-05-26 10:20] VITALS: PULSE 107; RESP 18
[2018-05-26] MEDS: Ipratropium/Albuterol Sulfate 3 ML AMPUL.NEB INHALATION (10:20)
[2018-05-26] MEDS: Albuterol 2.5 MG/3 ML VIAL.NEB. INHALATION (10:20)
[2018-05-26 10:26] VITALS: PULSE 106; RESP 18; O2SAT 99
[2018-05-26] MEDS: predniSONE 20 MG Tablet 60 MG PO (10:56)
--- NOTE | 2018-05-26 11:08 | RAD_ITS ---
STUDY: X-RAY CHEST REASON FOR EXAM: Male, 42 years old. Shortness of breath, cough and COPD. TECHNIQUE: PA and lateral views of the chest. COMPARISON: 05/13/2018. FINDINGS: Single chamber left-sided pacemaker is again seen with a battery in the left chest wall. There again are prominent markings predominantly in the lung bases likely reflecting interstitial pulmonary edema. There is prominence of the pulmonary vasculature. There again are small bilateral pleural effusions. There is borderline cardiomegaly. Normal mediastinum and kelly. Normal visualized pulmonary arteries. Normal visualized aortic arch and descending thoracic aorta. Normal visualized thoracic spine. Normal visualized ribs, clavicles, and shoulders. There is no demonstrated abnormality of the visualized soft tissue structures of the upper abdomen. RAD/Chest PA and Lateral IMPRESSION: 1. Pulmonary venous congestion and bilateral lower lung infiltrates/edema. 2. Small bilateral pleural effusions. 3. No significant change since the previous exam. Electronically Signed: Monroe Dawson MD at 11:38 EST Tel , Service support ,
--- NOTE | 2018-05-26 11:41 | ED.DEP ---
ED Disposition - Plan for ED Patient: Disposition: Home or Assisted Living Chief Complaint: Shortness of Breath Instructions: ED Reactive Airway Disease Prescriptions: Azithromycin [Zithromax Z-George] 250 mg PO UD #1 box hydrOXYzine pamoate capsule [Vistaril] 50 mg PO TID PRN PRN #30 capsule PRN Reason: Anxiety Naproxen [Naprosyn] 500 mg PO BID PRN #20 tablet Prednisone [Deltasone] 60 mg PO DAILY #12 tablet Referrals: Jesus Child [Primary Care Provider] - Additional Instructions: [facility] [place]
[2018-05-26] MEDS: Naproxen 500 MG Tablet PO (12:05)
[2018-05-26] MEDS: hydrOXYzine PAM 25 MG Capsule PO (12:05)
[2018-05-26 12:32] VITALS: BP 141/101; PULSE 102; RESP 19; O2SAT 97
[2018-05-26 12:38] VITALS: O2SAT 97
== END 2018-05-26 12:39 | disposition home or self-care (01) ==
PROVIDERS: Emergency Provider Emergency Medicine; Family Provider Family Medicine; PCP Family Medicine
DX: J45.901 Unspecified asthma with (acute) exacerbation (principal); F41.9 Anxiety disorder, unspecified; I25.2 Old myocardial infarction; I50.9 Heart failure, unspecified; G62.9 Polyneuropathy, unspecified; I25.10 Atherosclerotic heart disease of native coronary artery without angina pectoris; Z72.0 Tobacco use; Z79.51 Long term (current) use of inhaled steroids; Z79.82 Long term (current) use of aspirin; Z79.4 Long term (current) use of insulin; Z79.899 Other long term (current) drug therapy
CPT/HCPCS: 71046; 94640; 99283

== ENCOUNTER 2018-05-30 20:36 | Observation (INO) | payer MEDICAID, SELFPAY ==
[2018-04-30 13:15] VITALS: BMI 25.9
[2018-05-30] VITALS (7 sets, daily range): BP systolic 115–155; BP diastolic 84–113; PULSE 100–109; RESP 20–30; TEMP 36.9–37.1; O2SAT 96–100; BMI 28.8; BMI 26.6
--- NOTE | 2018-05-30 20:46 | EKG12_ITS ---
Test Reason : CP Blood Pressure : / mmHG Vent. Rate : 116 BPM Atrial Rate : 116 BPM P-R Int : 144 ms QRS Dur : 090 ms QT Int : 320 ms P-R-T Axes : 065 -58 086 degrees QTc Int : 444 ms Sinus tachycardia Possible Left atrial enlargement Left anterior fascicular block Anterior infarct , age undetermined Abnormal ECG Confirmed by CHAR MCKEON, HAIM ([id number]), editor producer EDELMIRA RIVAS ([id number]) on 06/01/2018 3:14:46 PM Referred By: Sofiya Ritchie Confirmed By:HAIM PARDO MD
--- NOTE | 2018-05-30 20:55 | ED.RN ---
PT TOOK [employer]IRIN THIS AFTERNOON. I WILL DISCUSS DOSAGE WITH DR. BLACK. PT IS REQUESTING BREATHING TX.
--- NOTE | 2018-05-30 20:56 | RAD_ITS ---
STUDY: X-RAY CHEST REASON FOR EXAM: Male, 42 years old. Chest pain, shortness of breath and weakness. History of prior myocardial infarction, cardiac stent placement, pacemaker and defibrillator. TECHNIQUE: 2 views COMPARISON: Prior chest radiograph of May 26, 2018. FINDINGS: The lung song are generally hyperexpanded with mild perihilar and lower lung zone interstitial changes that are substantially improved from the prior exam. Fissures remain thickened without a substantial residual pleural effusion. Heart size is within normal limits. Defibrillator device of the anterior chest wall remains unchanged in position. Normal visualized pulmonary arteries. Normal visualized aortic arch and descending thoracic aorta. Normal visualized thoracic spine. Normal visualized ribs, clavicles, and shoulders. There is no demonstrated abnormality of the visualized soft tissue structures of the upper abdomen. RAD/Chest PA and Lateral IMPRESSION: The lung song are generally hyperexpanded without major consolidation or major atelectasis. Persistent interstitial changes in the perihilar and medial lower lung zone lung zone distribution substantially improved from the previous exam of April 25, 2019 consistent with resolving edema. Fissures remain thickened without other evidence of a substantial pleural effusion. Stable cardiac size. Defibrillator device of the anterior chest wall is unchanged. Electronically Signed: Teresa Diaz MD at 21:18 EST , Service support ,
[2018-05-30] MEDS: Aspirin 81 MG TAB.CHEW 324 MG PO (21:09)
[2018-05-30 21:11] LABS: Absolute Lymphocyte Count 1.47 X10^3/ul (0.83-4.51); Basophil# 0.03 X10^3/uL; Basophil% 0.4 % (0-1); Eosinophil# 0.02 X10^3/uL; Eosinophils% 0.2 % (0-5); Hematocrit 40.3 % (40-54); Hemoglobin 13.5 g/dl (13.0-16.5); Lymphocyte # 1.47 X10^3/ul (4.0); Lymphocyte % 17.7 % (19-41); Mean Corp Hgb Conc 33.5 g/gl (32-36); Mean Corpuscular Hgb 29.7 pg (27.0-32.0); Mean Corpuscular Volume 88.8 fL (80-94); Mean Platelet Vol. 9.8 fl (6.2-12.0); Monocyte# 0.73 X10^3/uL; Monocyte% 8.8 % (0-10); Neutrophil # 6.03 X10^3/uL (2.7-7.7); Neutrophil % 72.7 % (47-70); Platelet Count 184 K/mm3 (150-450); RBC Distribution Width CV 13.2 % (11.6-14.6); RBC Distribution Width SD 42.8 fl (35.1-43.9); Red Blood Count 4.54 M/mm3 (4.6-6.2); White Blood Count 8.3 K/mm3 (4.4-11.0)
[2018-05-30 21:13] LABS: POSITIVE COUNT NO; POSITIVE DIFFERENTIAL NO; POSITIVE MORPHOLOGY NO
[2018-05-30 21:18] LABS: D-Dimer Quantitative (DVT/PE) 0.29 FEU/ug/m (0.27-0.49)
[2018-05-30 21:30] LABS: Anion Gap 8 (5-15); BUN 10 mg/dL (7-18); BUN/Creat Ratio 10.1 RATIO (10-20); Calcium,Total 7.9 mg/dL (8.5-10.1); Chloride 105 mmol/L (98-107); Creatinine, Serum 0.99 mg/dL (0.70-1.30); EST Glomerular Filtration Rate 89 mL/min (>60); Est Glom Filt Rate - Afr Amer 108 mL/min (>60); Estimated Creatinine Clearance 108.87 ml/min; Glucose 233 mg/dL (74-106); Potassium 3.5 mmol/L (3.5-5.1); Sodium Level 137 mmol/L (136-145)
[2018-05-30 21:41] LABS: Lactic Acid 1.3 mmol/L (0.4-2.0)
--- NOTE | 2018-05-30 22:31 | HP.PCM_ITS ---
Problem List (1) CAD (coronary artery disease) Status: Chronic (2) Severe left ventricular systolic dysfunction Status: Chronic (3) Hypertension Status: Chronic (4) History of coronary artery stent placement Status: Chronic Comment: PCI-MHERDAD-LAD 08/2014, [id number]-Mid CX and Prox- Mid RCA 03/18/15, Thrombosis of CX stent 03/25/15. MEHRDAD to RCA (2.7 X 16 Promus Synergy) 04/30/2018 (5) Atherosclerosis of coronary artery of [place] heart without angina pectoris Status: Chronic Comment: PCI-MEHRDAD-LAD 08/2014, [id number]-Xjsv-Mid CX and Prox- Mid RCA 03/18/15, Thrombosis of CX stent 03/25/15 (6) Ischemic cardiomyopathy Status: Chronic Comment: EF 20% per echo 08/08/2016 (7) Hyperlipidemia Status: Chronic (8) Type 2 diabetes mellitus Status: Chronic (9) Chronic systolic CHF (congestive heart failure) Status: Chronic History of Present Illness Date of Admission: 05/30/18 Chief Complaint: Shortness of breath, chest pain. The patient is a 42 year old M with past medical history as mentioned above presented to the emergency room because of exertional shortness of breath and chest pain. The patient is a very poor informant and was not able to provide consistent history and he is very difficult to understand. His main presenting complaint is shortness of breath which has been going on for several days, exertional, comes on with even minimal exertion and he gets very easily tired and winded, associated with intermittent chest pain, described as shooting pain across the left side of his chest as well as dry cough and without aggravating or relieving factors. Today's ED visit is the third visit within the last 2 weeks for the same exact complaint. Last visit was 4 days ago and he was discharged on Zithromax, prednisone for presumed asthma exacerbation versus bronchitis. 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 In the emergency department, patient was afebrile, heart rate has been around 100, blood pressure stable, pulse ox was 99% on 2 L of oxygen. His routine blood work was unremarkable. His EKG revealed sinus tachycardia, deep S wave in V3 and those changes are chronic without evidence of acute ischemic changes. Chest x-ray revealed significantly improved bilateral pulmonary vascular congestion compared to chest x-ray that was done on May 26, 2018. Because patient came to the ED 3 times within the last 2 weeks for the same complaint, he is being admitted for exertional shortness of breath and atypical chest pain for evaluation. 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 MEHRDAD to RCA (2.7 X 16 Promus Synergy) 04/30/2018 Atherosclerosis of coronary artery of [place] heart without angina pectoris (Chronic) PCI-MEHRDAD-LAD 08/2014, [id number]-ULV-Obxz-Mid CX and Prox-Mid RCA 03/18/15, Thrombosis of CX stent 03/25/15 Ischemic cardiomyopathy (Chronic) EF 20% per echo 08/08/2016 Hyperlipidemia (Chronic) Type 2 diabetes mellitus (Chronic) Chronic systolic CHF (congestive heart failure) (Chronic) Medical History: Medical History (Last Updated 05/30/18 @ 22:29 by Sofiya Ritchie MD) Severe left ventricular systolic dysfunction (Chronic) I51.9 Polysubstance abuse (Chronic) F19.10 marijuana, cocaine Nicotine dependence (Chronic) F17.200 Old myocardial infarction (Chronic) I25.2 Hypertension (Chronic) I10 Atherosclerosis of coronary artery of [place] heart without angina pectoris (Chronic) I25.10 PCI-MEHRDAD-LAD 08/2014, AGC-ASV-Qrqp-Mid CX and Prox-Mid RCA 03/18/15, Thrombosis of CX stent 03/25/15 Ischemic cardiomyopathy (Chronic) I25.5 EF 20% per echo 08/08/2016 Hyperlipidemia (Chronic) E78.5 Type 2 diabetes mellitus (Chronic) E11.9 Chronic systolic CHF (congestive heart failure) (Chronic) I50.22 Depression F32.9 Peripheral neuropathy G62.9 Allergies No Known Allergies Allergy (Verified 05/30/18 20:47) Home Medications: Ambulatory Orders Medication Instructions Recorded Insulin Glargine,Hum.rec.anlog 14 unit SQ DAILY 04/09/17 [Basaglar Kwikpen U-100] sennosides 8.6 mg tablet 8.6 mg PO BID PRN 08/11/17 Sertraline HCl [Zoloft] 50 mg PO DAILY #30 tab 05/13/18 carvedilol 6.25 mg tablet 6.25 mg PO BID #60 tab 05/14/18 clopidogrel 75 mg tablet 75 mg PO DAILY #30 tab 05/14/18 furosemide 80 mg tablet 80 mg PO BID #60 tab 05/14/18 losartan 25 mg tablet 25 mg PO DAILY #30 tab 05/14/18 magnesium oxide 400 mg (241.3 mg 400 mg PO DAILY #30 tab 05/14/18 magnesium) tablet nitroglycerin 0.4 mg sublingual 0.4 mg SUBLINGUAL Q5M PRN #25 tab 05/14/18 tablet potassium chloride ER 20 mEq 20 meq PO DAILY #30 tab 05/14/18 tablet,extended release spironolactone 25 mg tablet 25 mg PO DAILY #30 tab 05/14/18 Albuterol Inhaler [Ventolin Hfa] 1 - 2 puff INHALATION Q4H PRN PRN 05/26/18 #1 inhaler Aspirin E.C. [Ecotrin] 81 mg PO TID 05/26/18 Atorvastatin Calcium 40 mg PO DAILY 05/26/18 Azithromycin [Zithromax Z-George] 250 mg PO UD #1 box 05/26/18 Benzonatate [Tessalon Perle] 200 mg PO TID PRN PRN #20 capsule 05/26/18 Naproxen [Naprosyn] 500 mg PO BID PRN #20 tablet 05/26/18 Prednisone [Deltasone] 60 mg PO DAILY #12 tablet 05/26/18 hydrOXYzine pamoate capsule 50 mg PO TID PRN PRN #30 capsule 05/26/18 [Vistaril] Surgical History: Surgical History (Last Reviewed 05/14/18 @ 10:06 by Savanna Dave) 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) Onset Date: 06/28/[address] Berry @ [facility] History of coronary artery stent placement (Chronic) Onset Date: 04/30/18 Z95.5 PCI-MEHRDDA-LAD 08/2014, EWP-[id number]-Rxxq-Mid CX and Prox-Mid RCA 03/18/15, Thrombosis of CX stent 03/25/15. MEHRDAD to RCA (2.7 X 16 Promus Synergy) 04/30/2018 History of appendectomy Z90.49 Surgical History: - - Cardiac stent August 2014 Psychiatric History: Depression Lives: Spouse/ Significant Other Smoking Status: Current some day smoker Tobacco Use: Cigarettes Alcohol: None Drugs: None - *Family History Paternal Family History: Family History (Last Reviewed 05/14/18 @ 10:06 by Savanna Dave) Mother CAD (coronary artery disease) Diabetes Hypertension Myocardial infarction Father CAD (coronary artery disease) Diabetes Hypertension Myocardial infarction Brother Hypertension History Items: - - Denies paternal cardiac history Maternal Family History: Family History (Last Reviewed 05/14/18 @ 10:06 by Savanna Dave) Mother CAD (coronary artery disease) Diabetes Hypertension Myocardial infarction Father CAD (coronary artery disease) Diabetes Hypertension Myocardial infarction Brother Hypertension History Items: Heart Disease Review of Systems Constitutional: Reports: Weakness, Fatigue. Denies: Anorexia, Chills, Fever Eyes: Denies: Blurred vision, Double vision, Drainage, Redness HEENT: Denies: Difficulty Hearing, Ear Pain, Eye Pain, Nasal Congestion, Sore Throat Cardiovascular: Reports: Chest Pain, Orthopnea. Denies: Chest Tightness, Edema, Heaviness, Paroxysmal Noc. Dyspnea, Syncope Respiratory: Reports: Cough, Shortness of breath upon exertion, Sputum production. Denies: Pleuritic Pain, Wheezing Gastrointestinal: Denies: Abdominal Pain, Constipation, Diarrhea, Nausea, Vomiting Genitourinary: Denies: Dysuria, Frequency, Hematuria Musculoskeletal: Denies: Arm Pain, Back Pain, Foot Pain Skin: Denies: Dryness, Rash Neurological: Denies: Balance problems, Double vision, Change in Speech, Slurred speech, Headaches, Incoordination, Numbness Psychiatric: Denies: Anxiety, Depression Endocrine: Denies: Change in Body Habitus, Polydipsia VTE Information - Inpt Only VTE Present on Admission: No VTE Mechan Device Prophylaxis: None VTE Pharm Prophylaxis ordered?: Yes - Physical Exam General: Alert, Oriented x3, Cooperative, No apparent distress, - HEENT: Atraumatic, PERRLA, EOMI, Normocephalic Oral: Moist Mucosa, No Gingival or Mucosal Lesions/ Ulcerations Neck: Supple, No JVD, Negative Carotid Bruits, Trachea Midline, Thyroid Normal Size and Texture Lungs: Clear to auscultation, No rhonchi, No wheeze, No rales, Diminished Cardiovascular: Regular rate, Regular Rhythm, Normal S1, Normal S2, PMI Normal, Tachycardic Abdomen: Bowel Sounds Present, Soft, Non Tender, Non-Distended, No Hepato- splenomegaly Extremities: No clubbing, No cyanosis, No edema Skin: No rashes, No breakdown Musculoskeletal: No Tenderness to Palpation of Joints or Extremities Lymphatic: No Cervical, Supraclavicular, or Inguinal Adenopathy Neurological: Cranial nerves II-XII grossly intact, Motor Exam 5/5 strength throughout Psych/Mental Status: Normal Affect, Appropriate, Alert and oriented to time, place, person, mood and affect Vital Signs Temp Pulse Resp BP Pulse Ox 98.7 F 104 H 20 H 131/84 H 99 05/30/18 21:56 05/30/18 22:28 05/30/18 22:28 05/30/18 22:28 05/30/18 22:28 Oxygen Flow Rate (L/min) 2 Oxygen Delivery Method Nasal Cannula Weight: 212 lb 3.2 oz Body Mass Index (BMI) 28.8 Finger Stick Blood Glucose 119 Laboratory Tests Past 24 Hrs 05/30/18 05/30/18 05/30/18 20:55 20:55 20:55 WBC 8.3 RBC 4.54 L Hgb 13.5 Hct 40.3 MCV 88.8 MCH 29.7 MCHC 33.5 RDW 13.2 RDW Differential 42.8 Plt Count 184 MPV 9.8 Immature Gran % (Auto) 0.200 Neut % (Auto) 72.7 H Lymph % (Auto) 17.7 L Morton % (Auto) 8.8 Eos % (Auto) 0.2 Baso % (Auto) 0.4 Absolute Neuts (auto) 6.0 Absolute Lymphs (auto) 1.47 Total Counted Not Reportable D-Dimer Quant (PE/DVT) 0.29 Sodium 137 Potassium 3.5 Chloride 105 Carbon Dioxide 24.0 Anion Gap 8 BUN 10 Creatinine 0.99 Estim Creat Clear Calc 108.87 Est GFR (MDRD) Af Amer 108 Est GFR (MDRD) Non-Af 89 BUN/Creatinine Ratio 10.1 Glucose 233 H Lactic Acid Calcium 7.9 L Troponin I 0.043 05/30/18 20:55 WBC RBC Hgb Hct MCV MCH MCHC RDW RDW Differential Plt Count MPV Immature Gran % (Auto) Neut % (Auto) Lymph % (Auto) Morton % (Auto) Eos % (Auto) Baso % (Auto) Absolute Neuts (auto) Absolute Lymphs (auto) Total Counted D-Dimer Quant (PE/DVT) Sodium Potassium Chloride Carbon Dioxide Anion Gap BUN Creatinine Estim Creat Clear Calc Est GFR (MDRD) Af Amer Est GFR (MDRD) Non-Af BUN/Creatinine Ratio Glucose Lactic Acid 1.3 Calcium Troponin I Clinical Impression(s) from Imaging Studies Chest X-Ray 05/30/18 20:56 IMPRESSION: The lung song are generally hyperexpanded without major consolidation or major atelectasis. Persistent interstitial changes in the perihilar and medial lower lung zone lung zone distribution substantially improved from the previous exam of April 25, 2019 consistent with resolving edema. Fissures remain thickened without other evidence of a substantial pleural effusion. Stable cardiac size. Defibrillator device of the anterior chest wall is unchanged. Electronically Signed: Teresa Diaz MD at 21:18 EST , Service support , Assessment/Plan This is a 42 years old male patient presented to the emergency room because of exertional shortness of breath and atypical chest pain with multiple ED visits, 3 times in the last 2 weeks and he is being admitted for evaluation. #1 exertional shortness of breath/atypical chest pain: EKG reviewed, revealed sinus tachycardia with deep S wave in lead V3, no acute changes and no changes are chronic compared to previous EKG. Chest x-ray showed significantly improved CHF compared to x-ray from May 26, 2018. I tried to explain to the patient that his symptoms are probably due to his very low ejection fraction. His troponin is negative. Plan: Admit to PCU for observation, cardiac monitoring, serial cardiac enzymes, repeat EKG tomorrow morning, will check respiratory panel for viruses, continue aspirin, statins, Plavix, Coreg, Lasix, losartan and Aldactone, cardiology consult, PT OT evaluation and treatment, ambulatory pulse oximeter. At this time, I do not think that patient will need any further cardiac workup unless he developed new EKG changes or troponin start to go up. Probably he will need education about the nature of his disease. #2 CAD status post stents: Plan as above, serial cardiac enzymes, repeat EKG tomorrow morning, continue aspirin, statins, Plavix, beta-blockers, losartan and diuretics. #3 chronic systolic CHF/ischemic cardiomyopathy/status post ICD: Clinically s table, compensated. Plan to continue Coreg, losartan, Lasix, Aldactone. #4 type 2 diabetes mellitus: ADA diet, Accu-Cheks, insulin sliding scale, continue glargine insulin. #5 hypertension: Blood pressure stable, continue Coreg, Lasix, losartan and Aldactone. #6 hyperlipidemia: Continue statins. #7 DVT prophylaxis: Subcu Lovenox. This note was generated with [employer] dictation software. It may contain incorrect words, spelling, and punctuation that were not noted in checking the note before signing. Code Visit OBSV E&M: 35513 Initial observation care L3
--- NOTE | 2018-05-30 22:47 | ED.DCSUM_ITS ---
- ER Visit Summary Date of Service: 05/30/18 Chief Complaint: Chest pain History of Present Illness: The patient is a 42 M presenting for evaluation secondary to chest pain and shortness of breath. Patient has an underlying history of coronary artery disease with stenting the end of March. He has an ejection fraction of a grand total of 15%. Patient states that over the course of the last couple of days he has been having issues with chest pain and shortness of breath on exertion. This also has been associated with a cough nausea and vomiting. Patient states that he has been first seen for similar symptoms 2 times previous to this within the last approximately week and a half. He has had workups and discharged. He denies any presence of fevers. Review of systems otherwise negative. Physical Examination: Vital signs notable for tachycardia heart rate of 103. Well-nourished male no acute distress. Moist mucous membranes. No JVD. Heart was tachycardic and regular. Patient was tachypneic with normal lung sounds, and not evidence of respiratory distress. Abdomen was soft and nontender. Peripheral pulses were 2+ and symmetric. Skin was normal color no rash remainder of physical otherwise unremarkable. Test Results: CBC and chemistry unremarkable, EKG shows sinus tachycardia with a left anterior fascicular block and old anterior Q waves and a ventricular rate of 116. Troponin was 0.043 d-dimer was negative. Chest x-ray shows chronic changes. Emergency Department Course and Treatment: Patient presented secondary to chest pain. Workup was negative as noted above. Patient has a significant history of cardiac disease and congestive heart failure, this is his third visit for similar presentation I believe he requires admission. Patient will be admitted under the hospitalist. Disposition: Admission Impression: 1. Chest pain This note was generated with [employer] dictation software. It may contain incorrect words, spelling, and punctuation that were not noted in review of the chart prior to signing ED Disposition - Plan for ED Patient: Referrals: Jesus Sarah [Primary Care Provider] -
[2018-05-31] VITALS (8 sets, daily range): BP systolic 103–131; BP diastolic 45–85; PULSE 58–112; RESP 16–20; TEMP 36.6–37.7; O2SAT 92–99
[2018-05-31 00:40] LABS: Bedside Glucose 264 mg/dL (70-110)
[2018-05-31] MEDS: Acetaminophen 325 MG Tablet 650 MG PO (04:42)
[2018-05-31] MEDS: Albuterol 2.5 MG/3 ML VIAL.NEB. INHALATION (05:10)
--- NOTE | 2018-05-31 05:55 | EKG12_ITS ---
Test Reason : AM Blood Pressure : / mmHG Vent. Rate : 111 BPM Atrial Rate : 111 BPM P-R Int : 150 ms QRS Dur : 090 ms QT Int : 338 ms P-R-T Axes : 062 -70 081 degrees QTc Int : 459 ms Sinus tachycardia Possible Left atrial enlargement Left axis deviation Anteroseptal infarct , age undetermined Abnormal ECG When compared with ECG of 30-MAY-2018 23:58, MANUAL COMPARISON REQUIRED, DATA IS UNCONFIRMED Confirmed by CHAR MCKEON, HAIM ([id number]), film editor EDELMIRA RIVAS ([id number]) on 06/05/2018 9:01:28 AM Referred By: Sofiya Ritchie Confirmed By:HAIM PARDO MD
--- NOTE | 2018-05-31 07:20 | STE_ITS ---
Reason For Study: CHEST PAIN Stress Results Protocol: Dobutamine Maximum Predicted HR: 180 bpm Target HR: 153 bpm % Maximum Predicted HR: 72 % DurationHeart Rate Stage (mm:ss) (bpm) BP Dose Comment BASELINE 101 100/62 STAGE 1 3:00 90 .00 STAGE 2 3:00 103 112/8020.00 STAGE 3 3:00 104 120/8230.00 STAGE 4 6:38 130 100/6040.001 MG ATROPINE GIVEN. RECOVERY 114 108/70 Stress Duration: 15:38 mm:ss Maximum Stress HR: 130 bpm Baseline Echocardiogram Findings The estimated ejection fraction is 15 %. Stress Echo Wall motion Data Resting WM Intermediate WM Stress WM Resting Wall Motion Lateral-Basal: Akinetic. Mid-Anterior : Severely Hypokinetic. EKG Data The baseline ECG displays normal sinus rhythm. The patient was titrated from 10 mcg to a maximum of 40 mcg of dobutamine during the stress. The maximum heart rate attained was 131 beats per minute. This was 72% of maximum predicted heart rate. During dobutamine infusion, there were no ST or T wave changes noted to suggest ischemia. No clinical angina was noted. Interpretation Summary The estimated ejection fraction is 15 %. Lateral-Basal: Akinetic at baselin Mid-Anterior : Severely Hypokinetic at baseline. Normal, adequate, dobutamine echocardiogram. Negative for ischemia by EKG and echocardiographic anterior. Rare PVC noted. Appropriate blood pressure response to dobutamine. Patient had baseline severe LV dysfunction with akinetic anterolateral cha. Patient had progressive contractility of the inferior and posterior cha during infusion. No anginal symptoms noted. Appropriate blood pressure response to dobutamine. Final LVEF of 20%. No complications. Ordering Physician: Faisal Ramirez Referring Physician: Sofiya Ritchie Performed By: Marichuy Ponce RDCS
[2018-05-31 07:46] LABS: Bedside Glucose 307 mg/dL (70-110)
[2018-05-31] MEDS: Ipratropium/Albuterol Sulfate 3 ML AMPUL.NEB INHALATION (07:59)
--- NOTE | 2018-05-31 08:27 | PCM.CONS.C ---
Problem List (1) CAD (coronary artery disease) Status: Chronic (2) Severe left ventricular systolic dysfunction Status: Chronic (3) Polysubstance abuse Status: Chronic Comment: marijuana, cocaine (4) Nicotine dependence Status: Chronic (5) Old myocardial infarction Status: Chronic (6) Hypertension Status: Chronic (7) History of coronary artery stent placement Status: Chronic Comment: PCI-MEHRDAD-LAD 08/2014, HGT-SXP-Mkhu-Mid CX and Prox-Mid RCA 03/18/15, Thrombosis of CX stent 03/25/15. MEHRDAD to RCA (2.7 X 16 Promus Synergy) 04/30/2018 (8) Ischemic cardiomyopathy Status: Chronic Comment: EF 20% per echo 08/08/2016 (9) Hyperlipidemia Status: Chronic Reason for Consult Date of Consultation: 05/31/18 Reason for Consultation: Chest pain, ischemic cardia myopathy, coronary disease status post stenting, LV dysfunction, polysubstance abuse, hypertension, hypercholesterolemia, medical noncompliance. History of Present Illness: The patient is a 42 year old M, patient of [employer],who presented to [facility] with several day history of recurrent sinus type pain, shortness of breath, and wheezing. Patient has a baseline history of cardiomyopathy as well as hypertension, diabetes, hypercholesterolemia, former smoker of 2-3 packs per day for the past 20 years, quit smoking about 2 month ago. He recently relocated from [place] and apparently was diagnosed with ischemic cardiomyopathy at that time. More specifically the patient was admitted in [place] around 2013 or 2014 with substernal chest pain and a myocardial infarction and apparently underwent angioplasty and stenting ?5 at that time. He was diagnosed with congestive heart failure and has been admitted several times with congestive heart failure in the past. He also has a history of cocaine abuse his last use being about 2 months ago. He denies any IV drug use. Patient recently relocated here and has seen Dr. Child in the office for medical management and was referred to our office for further cardiac care. We saw the patient we reduced his Coreg and begin IV diuretic therapy. In addition he underwent a noninvasive nuclear stress test which showed an EF of 23%, and extensive inferior and apical infarction. Most recently on 06/28/17 the patient underwent subcutaneous ICD placement by Dr. Berry at [facility]. He is now here in follow up. Patient returned to [facility] underwent repeat catheterization on 04/30/[address] Cabrera via the right radial approach, and underwent successful angioplasty and drug-eluting stent of the right coronary artery receiving a 2.75 x 16 Promus Synergy stent, postdilated with a 3.[address] Gardner. At that time he was found to have an occluded left circumflex, nonobstructive disease of his LAD. His EF at that time was around 15% Patient recently ran out of his medications, and finally developed lower extremity edema and shortness of breath seeking a visit to the emergency room on the day of her outpatient office visit in order to resume his medications. In addition his PCP has not yet renewed his antianxiety and pain medicines as well as his neuropathy medicines and the patient is somewhat frustrated. He did not appear to be a good candidate for cardiac rehab at the time of her last visit. The patient is committed to taking his cardiac medications at this time. The patient reported to the emergency room on 05/30/18 with recurrent complaint of chest pain, and shortness of breath. He had visited the ER 2 times previous, and subsequently was admitted last evening. He ruled out for myocardial infarction. His EKG showed normal sinus rhythm with old anteroseptal wall myocardial infarction, no acute changes, and left anterior hemiblock. Patient describes his symptoms as headache, positional headache consistent with sinusitis, shortness of breath, productive cough, and wheezing. Patient actually denied chest pain to me. His main issue has been antianxiety medications, which she feels have not been addressed properly. [] Past Medical History Allergies/Adverse Reactions: Allergies No Known Allergies Allergy (Verified 05/30/18 20:47) Home Medications: Ambulatory Orders Medication Instructions Recorded Insulin Glargine,Hum.rec.anlog 14 unit SQ DAILY 04/09/17 [Basaglar Kwikpen U-100] sennosides 8.6 mg tablet 8.6 mg PO BID PRN 08/11/17 Sertraline HCl [Zoloft] 50 mg PO DAILY #30 tab 05/13/18 carvedilol 6.25 mg tablet 6.25 mg PO BID #60 tab 05/14/18 clopidogrel 75 mg tablet 75 mg PO DAILY #30 tab 05/14/18 furosemide 80 mg tablet 80 mg PO BID #60 tab 01/14/19 losartan 25 mg tablet 25 mg PO DAILY #30 tab 05/14/18 magnesium oxide 400 mg (241.3 mg 400 mg PO DAILY #30 tab 05/14/18 magnesium) tablet nitroglycerin 0.4 mg sublingual 0.4 mg SUBLINGUAL Q5M PRN #25 tab 05/14/18 tablet potassium chloride ER 20 mEq 20 meq PO DAILY #30 tab 05/14/18 tablet,extended release spironolactone 25 mg tablet 25 mg PO DAILY #30 tab 05/14/18 Albuterol Inhaler [Ventolin Hfa] 1 - 2 puff INHALATION Q4H PRN PRN 05/26/18 #1 inhaler Aspirin E.C. [Ecotrin] 81 mg PO TID 05/26/18 Atorvastatin Calcium 40 mg PO DAILY 05/26/18 Azithromycin [Zithromax Z-George] 250 mg PO UD #1 box 05/26/18 Benzonatate [Tessalon Perle] 200 mg PO TID PRN PRN #20 capsule 05/26/18 Naproxen [Naprosyn] 500 mg PO BID PRN #20 tablet 05/26/18 Prednisone [Deltasone] 60 mg PO DAILY #12 tablet 05/26/18 hydrOXYzine pamoate capsule 50 mg PO TID PRN PRN #30 capsule 05/26/18 [Vistaril] Past Medical History (Chronic Problems): Chronic Problems (Last Updated 05/30/18 @ 22:29 by Sofiya Ritchie MD) CAD (coronary artery disease) (Chronic) Severe left ventricular systolic dysfunction (Chronic) Polysubstance abuse (Chronic) marijuana, cocaine 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/28/17) SICD per Dr Berry @ [facility] Nicotine dependence (Chronic) Old myocardial infarction (Chronic) Hypertension (Chronic) History of coronary artery stent placement (Chronic 04/30/18) PCI-MEHRDAD-LAD 08/2014, COD-ZBZ-Vluw-Mid CX and Prox-Mid RCA 03/18/15, Thrombosis of CX stent 03/25/15. MEHRDAD to RCA (2.7 X 16 Promus Synergy) 04/30/2018 Atherosclerosis of coronary artery of [place] heart without angina pectoris (Chronic) PCI-MEHRDAD-LAD 08/2014, XPV-ZRC-Rgdn-Mid CX and Prox-Mid RCA 03/18/15, Thrombosis of CX stent 03/25/15 Ischemic cardiomyopathy (Chronic) EF 20% per echo 08/08/2016 Hyperlipidemia (Chronic) Type 2 diabetes mellitus (Chronic) Chronic systolic CHF (congestive heart failure) (Chronic) Surgical History: - - Cardiac stent August 2014 Psychiatric History: Depression - *Family History Paternal Family History: Family History (Last Reviewed 05/14/18 @ 10:06 by Savanna Dave) Mother CAD (coronary artery disease) Diabetes Hypertension Myocardial infarction Father CAD (coronary artery disease) Diabetes Hypertension Myocardial infarction Brother Hypertension History Items: - - Denies paternal cardiac history Maternal Family History: Family History (Last Reviewed 05/14/18 @ 10:06 by Savanna Dave) Mother CAD (coronary artery disease) Diabetes Hypertension Myocardial infarction Father CAD (coronary artery disease) Diabetes Hypertension Myocardial infarction Brother Hypertension History Items: Heart Disease Lives: Spouse/ Significant Other Smoking Status: Former smoker Tobacco Use: Cigarettes Alcohol: None Drugs: None Review of Systems - Review of Systems General: Denies: Fever, Night Sweats, Fatigue Cardiovascular: Reports: Shortness of Breath with Exertion. Denies: Chest Discomfort, Shortness of Breath, Orthopnea, PND, Peripheral Edema, Palpitations, Lightheadedness, Dizziness, Near Syncope, Syncope Respiratory: Reports: Cough, Wheezing, Pleurtic Chest Pain. Denies: Sputum Production, Hemoptysis Gastrointestinal: Denies: Hematemesis, Hematochezia, Melena Genitourinary: Denies: Dysuria, Hematuria Skin: Denies: Rash Subjectve: Patient in no acute distress. Objective: Vital Signs Temp Pulse Resp BP Pulse Ox 99.8 F H 100 20 H 131/85 H 96 05/31/18 04:35 05/31/18 08:00 05/31/18 08:00 05/31/18 04:35 05/31/18 08:00 Oxygen Flow Rate (L/min) 2 Oxygen Delivery Method Room Air Weight: 196 lb 6.91 oz Body Mass Index (BMI) 26.6 Finger Stick Blood Glucose 119 Intake and Output for Last 24 Hours 05/29/18 05/30/18 05/31/18 23:59 23:59 23:59 Intake Total 240 / 240 Balance 240 / 240 General: Awake, Alert, Oriented x 3 HEENT: PERRL, EOMI, Sclera Non Icteric Neck: Supple, Good ROM, No Lymph Node Enlargement Lungs: Clear to auscultation Cardiovascular: Regular Rhythm, Normal S1, Normal S2, No Murmurs, No Rubs, No Gallops Vascular: No Carotid Bruits, Normal Femoral Pulses, Normal Radial Pulses, Normal Dorsalis Pedal Pulse, Normal Posterior Tibial Pulses Abdomen: Bowel Sounds Present, Soft, Non Tender, No HSM, No Organomegaly Extremities: No Cyanosis, No Clubbing, No edema Neurological: No Focal Motor or Sensory Deficit 05/30/18 20:55: WBC 8.3, RBC 4.54 L, Hgb 13.5, Hct 40.3, MCV 88.8, MCH 29.7, MCHC 33.5, RDW 13.2, RDW Differential 42.8, Plt Count 184, MPV 9.8, Immature Gran % (Auto) 0.200, Neut % (Auto) 72.7 H, Lymph % (Auto) 17.7 L, [place] % (Auto) 8.8, Eos % (Auto) 0.2, Baso % (Auto) 0.4, Absolute Neuts (auto) 6.0, Total Counted Not Reportable 05/30/18 20:55: D-Dimer Quant (PE/DVT) 0.29 05/30/18 20:55: Sodium 137, Potassium 3.5, Chloride 105, Carbon Dioxide 24.0, Anion Gap 8, BUN 10, Creatinine 0.99, Est GFR (MDRD) Af Amer 108, Est GFR (MDRD) Non-Af 89, BUN/Creatinine Ratio 10.1, Glucose 233 H, Calcium 7.9 L, Troponin I 0.043 05/30/18 20:55: Lactic Acid 1.3 05/31/18 00:04: Troponin I 0.030 05/31/18 03:40: Troponin I 0.023 Rhythm: EKG: ECHO: Stress Test: Cardiac Cath: PCI: CT Surgery: Holter monitor: EPS: PPM: CXR: Chest CT Scan: Assessment/Plan 1. Ischemic cardiomyopathy: The patient has a known history of ischemic cardiomyopathy and subsequent angioplasty and stenting to his right coronary artery in March 2018. Patient also has a history of occluded left circumflex, and nonobstructive disease of his LAD with an EF around 10-15%. Patient now returns with shortness of breath consistent with probable bronchitis, positive RSV, and sinusitis type headache. In order to better evaluate his chest pain and shortness of breath I recommended he undergo a treadmill echocardiogram this morning to assess his inferior wall from his most recent angioplasty and stenting of his RCA. Patient has known occlusion of his left circumflex so would not be surprised if this territory is akinetic. The patient has any evidence of inferior ischemia, I have a low threshold for repeat catheterization. If his stress test shows no acute problems, we will hold off on repeat catheterization. Of also encouraged the patient to continue his medications as outlined in the MR[facility]. She was extremely hypertensive upon arrival. Patient's medical noncompliance is becoming an issue with repeat visits to the ER and admissions. Recommend he continue his baby aspirin, Plavix, Coreg, spironolactone, losartan, and Lasix. The patient also requires a 1500 cc fluid restriction once his bronchitis has resolved. Recommend matching his I's and O's while he is convalescing from this acute event. 2. Anxiety: The patient's main issue appears to be anxiety which segued into substance abuse. He does have drug-seeking behavior, and has a previous history of substance abuse. Recommend a tox screen to determine what if any illegal substances are present, and to then pre-prescribed Xanax which will assist with the patient's anxiety. 3. Hyperlipidemia: Continue Lipitor therapy. 4. You very much for the opportunity to participate in the cardiac care of your patient. Consultation time took place between 8 AM and 8:37 AM. Code Visit Inpatient E&M: 28424 Init Hosp L2
--- NOTE | 2018-05-31 08:30 | NURSING ---
Pt to stress echo via CREDIT REFERENCE CLERK
[2018-05-31 10:30] LABS: Bedside Glucose 277 mg/dL (70-110)
[2018-05-31] MEDS: Sertraline 50 MG Tablet PO (10:34)
[2018-05-31] MEDS: Enoxaparin 40 MG/0.4 ML Syringe SC (10:34)
[2018-05-31] MEDS: Spironolactone 25 MG Tablet PO (10:34)
[2018-05-31] MEDS: Aspirin E.C. 81 MG Tablet PO (10:34)
[2018-05-31] MEDS: Carvedilol 6.25 MG Tablet PO (10:34)
[2018-05-31] MEDS: Clopidogrel Bisulfate 75 MG Tablet PO (10:35)
[2018-05-31] MEDS: Furosemide 80 MG Tablet PO (10:35)
[2018-05-31] MEDS: Magnesium Oxide 400 MG Tablet PO (10:35)
[2018-05-31] MEDS: Losartan Potassium 25 MG Tablet PO (10:36)
[2018-05-31] MEDS: ALPRAZolam 0.5 MG Tablet PO (10:36)
[2018-05-31] MEDS: Insulin Lispro 100 UNIT/ML INSULN.PEN SC (10:36)
--- NOTE | 2018-05-31 11:15 | DCINST_ITS ---
You will use the following diet at home:: Calorie/Carbohydrate Controlled (specify 1200, 1400, etc) - 1800 vee / day, Cardiac - <2 grams sodium /er day Your food should be the consistency of: Regular Your liquids should be the consistency of: Regular/Thin Discharge Activity: Return to Normal Activity Allergies/Adverse Reactions: Allergies No Known Allergies Allergy (Verified 05/30/18 20:47) Medications to take at Discharge Insulin Glargine,Hum.rec.anlog [Basaglar Kwikpen U-100] 14 unit SQ DAILY 04/09/17 sennosides 8.6 mg tablet 8.6 mg PO BID PRN 08/11/17 Sertraline HCl [Zoloft] 50 mg PO DAILY #30 tab 05/13/18 carvedilol 6.25 mg tablet 6.25 mg PO BID #60 tab 05/14/18 clopidogrel 75 mg tablet 75 mg PO DAILY #30 tab 05/14/18 furosemide 80 mg tablet 80 mg PO BID #60 tab 05/14/18 losartan 25 mg tablet 25 mg PO DAILY #30 tab 05/14/18 magnesium oxide 400 mg (241.3 mg magnesium) tablet 400 mg PO DAILY #30 tab 05/14/18 nitroglycerin 0.4 mg sublingual tablet 0.4 mg SUBLINGUAL Q5M PRN #25 tab 05/14/18 potassium chloride ER 20 mEq tablet,extended release 20 meq PO DAILY #30 tab 05/14/18 spironolactone 25 mg tablet 25 mg PO DAILY #30 tab 05/14/18 Albuterol Inhaler [Ventolin Hfa] 1 - 2 puff INHALATION Q4H PRN PRN #1 inhaler 05/26/18 Aspirin E.C. [Ecotrin] 81 mg PO TID 05/26/18 Atorvastatin Calcium 40 mg PO DAILY 05/26/18 Azithromycin [Zithromax Z-George] 250 mg PO UD #1 box 05/26/18 Benzonatate [Tessalon Perle] 200 mg PO TID PRN PRN #20 capsule 05/26/18 hydrOXYzine pamoate capsule [Vistaril pamoate capsule] 50 mg PO TID PRN PRN #30 capsule 05/26/18 Primary Care Physician: Jesus Sarah [Primary Care Provider] - Please follow up with your Primary Care Physician in: 1-2 weeks Test Results: Test results from this visit will be discussed in further detail at your follow- up appointment, if applicable. Please Follow Up With: Faisal Ramirez MD When: As directed Proposed Discharge Date: 05/31/18
--- NOTE | 2018-05-31 11:28 | PHA.DC.MR ---
Pharmacy Service has performed discharge medication reconciliation for this patient. No new medications at discharge The patient's discharge medication list was reviewed for discrepancies and discrepancies were resolved. Home Medications Insulin Glargine,Hum.rec.anlog [Lu Fam U-100] 14 unit SQ DAILY 04/09/17 sennosides 8.6 mg tablet 8.6 mg PO BID PRN 08/11/17 Sertraline HCl [Zoloft] 50 mg PO DAILY #30 tab 05/13/18 carvedilol 6.25 mg tablet 6.25 mg PO BID #60 tab 05/14/18 clopidogrel 75 mg tablet 75 mg PO DAILY #30 tab 05/14/18 furosemide 80 mg tablet 80 mg PO BID #60 tab 05/14/18 losartan 25 mg tablet 25 mg PO DAILY #30 tab 05/14/18 magnesium oxide 400 mg (241.3 mg magnesium) tablet 400 mg PO DAILY #30 tab 05/14/18 nitroglycerin 0.4 mg sublingual tablet 0.4 mg SUBLINGUAL Q5M PRN #25 tab 05/14/18 potassium chloride ER 20 mEq tablet,extended release 20 meq PO DAILY #30 tab 05/14/18 spironolactone 25 mg tablet 25 mg PO DAILY #30 tab 05/14/18 Albuterol Inhaler [Ventolin Hfa] 1 - 2 puff INHALATION Q4H PRN PRN #1 inhaler 05/26/18 Aspirin E.C. [Ecotrin] 81 mg PO TID 05/26/18 Atorvastatin Calcium 40 mg PO DAILY 05/26/18 Azithromycin [Zithromax Z-George] 250 mg PO UD #1 box 05/26/18 Benzonatate [Tessalon Perle] 200 mg PO TID PRN PRN #20 capsule 05/26/18 hydrOXYzine pamoate capsule [Vistaril pamoate capsule] 50 mg PO TID PRN PRN #30 capsule 05/26/18
--- NOTE | 2018-05-31 12:39 | PCM.DC.SUM ---
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 MEHRDAD to RCA (2.7 X 16 Promus Synergy) 04/30/2018 Atherosclerosis of coronary artery of [place] heart without angina pectoris (Chronic) PCI-MEHRDAD-LAD 08/2014, [id number]-Mid CX and Prox-Mid RCA 03/18/15, Thrombosis of CX stent 03/25/15 Ischemic cardiomyopathy (Chronic) EF 20% per echo 08/08/2016 Hyperlipidemia (Chronic) Type 2 diabetes mellitus (Chronic) Chronic systolic CHF (congestive heart failure) (Chronic) Hospital Course and Treatment Imaging Results: 05/31/18 07:20 Stress Test Echo w/o Contrast [ECHO] Routine Interpretation Summary The estimated ejection fraction is 15 %. Lateral-Basal: Akinetic at baselin Mid-Anterior : Severely Hypokinetic at baseline. Normal, adequate, dobutamine echocardiogram. Negative for ischemia by EKG and echocardiographic anterior. Rare PVC noted. Appropriate blood pressure response to dobutamine. Patient had baseline severe LV dysfunction with akinetic anterolateral cha. Patient had progressive contractility of the inferior and posterior cha during infusion. No anginal symptoms noted. Appropriate blood pressure response to dobutamine. Final LVEF of 20%. No complications. RAD/Chest PA and Lateral IMPRESSION: The lung song are generally hyperexpanded without major consolidation or major atelectasis. Persistent interstitial changes in the perihilar and medial lower lung zone lung zone distribution substantially improved from the previous exam of April 25, 2019 consistent with resolving edema. Fissures remain thickened without other evidence of a substantial pleural effusion. Stable cardiac size. Defibrillator device of the anterior chest wall is unchanged. Consults: Ramirez - cardiology Operations: None Procedures: 2-D Echocardiogram, Stress test Summary of Care Provided: Hospital Course: The patient is a 42 year old M with a complicated cardiac hx as above, ICD in place, ischemic CM, CAD with stents, also with polysubstance abuse, who presented to the ER with SOB and chest pain. This had been worsening for several days, and the pain was described as shooting pain across the left chest. He also had a dry cough. He was recently prescribed zithromax prednisone for an asthma exacerbation. CXR showed improved BL congestion. He had been in the ER 3 x within the last 2 weeks. He was admitted to the PCU and cardiology was consulted. Troponins were negative. The following morning he had a stress echo with no new changes and cardiology was agreeable to discharge home. A respiratory panel demonstrated that he had acute RSV-B and rhinovirus infections likely responsible for his recent issues. The day of discharge he had no SOB, chest pain, and no wheezing. He was advised on supportive care and rest. He was discharge home in stable condition and will need to follow up with his PCP in 1-2 weeks, and with Cardiology as directed by them. This patient was seen by Alfredo Gifford PA-C under the supervision of Doctor Schreiber. [] - Physical Exam General: Alert, Oriented x3, Cooperative HEENT: Atraumatic, PERRLA, EOMI, Normocephalic Neck: Supple, No JVD, Negative Carotid Bruits Lungs: Clear to auscultation, Normal air movement Cardiovascular: Regular rate, No murmurs Abdomen: Bowel Sounds Present, Soft, Non Tender Extremities: No edema, Capillary Refill Less than 3 Seconds Skin: No rashes, No breakdown Musculoskeletal: No Tenderness to Palpation of Joints or Extremities Neurological: Cranial nerves II-XII grossly intact Psych/Mental Status: Normal Affect, Appropriate, Alert and oriented to time, place, person, mood and affect Vital Signs Temp Pulse Resp BP Pulse Ox 97.9 F 104 H 16 122/45 H 93 05/31/18 10:15 05/31/18 10:49 05/31/18 10:15 05/31/18 10:15 05/31/18 10:15 Oxygen Flow Rate (L/min) 2 Oxygen Delivery Method Room Air Weight: 196 lb 6.91 oz Body Mass Index (BMI) 26.6 Finger Stick Blood Glucose 119 Intake and Output for Last 24 Hours 05/29/18 05/30/18 05/31/18 23:59 23:59 23:59 Intake Total 240 / 240 Balance 240 / 240 Microbiology Past 72 Hours 05/31/18 00:03 Respiratory Panel (PCR) - Final Mucosa - Nasopharyngeal Rhinovirus RSV B Laboratory Tests Past 24 Hrs 05/30/18 05/30/18 05/30/18 20:55 20:55 20:55 WBC 8.3 RBC 4.54 L Hgb 13.5 Hct 40.3 MCV 88.8 MCH 29.7 MCHC 33.5 RDW 13.2 RDW Differential 42.8 Plt Count 184 MPV 9.8 Immature Gran % (Auto) 0.200 Neut % (Auto) 72.7 H Lymph % (Auto) 17.7 L [place] % (Auto) 8.8 Eos % (Auto) 0.2 Baso % (Auto) 0.4 Absolute Neuts (auto) 6.0 Absolute Lymphs (auto) 1.47 Total Counted Not Reportable D-Dimer Quant (PE/DVT) 0.29 Sodium 137 Potassium 3.5 Chloride 105 Carbon Dioxide 24.0 Anion Gap 8 BUN 10 Creatinine 0.99 Estim Creat Clear Calc 108.87 Est GFR (MDRD) Af Amer 108 Est GFR (MDRD) Non-Af 89 BUN/Creatinine Ratio 10.1 Glucose 233 H Lactic Acid Calcium 7.9 L Troponin I 0.043 05/30/18 05/31/18 05/31/18 20:55 00:04 03:40 WBC RBC Hgb Hct MCV MCH MCHC RDW RDW Differential Plt Count MPV Immature Gran % (Auto) Neut % (Auto) Lymph % (Auto) [place] % (Auto) Eos % (Auto) Baso % (Auto) Absolute Neuts (auto) Absolute Lymphs (auto) Total Counted D-Dimer Quant (PE/DVT) Sodium Potassium Chloride Carbon Dioxide Anion Gap BUN Creatinine Estim Creat Clear Calc Est GFR (MDRD) Af Amer Est GFR (MDRD) Non-Af BUN/Creatinine Ratio Glucose Lactic Acid 1.3 Calcium Troponin I 0.030 0.023 POC Glucose 05/31/18 05/31/18 05/31/18 10:14 07:41 00:28 POC Glucose 277 H 307 H 264 H Discharge Diet: Low fat/ Low Cholesterol, 1800 Calorie Control Diet, 2000 mg Sodium Diet Discharge Activity: Return to Normal Activity Home Medications: Medications to take at Discharge Insulin Glargine,Hum.rec.anlog [Basaglar Kwikpen U-100] 14 unit SQ DAILY 04/09/17 sennosides 8.6 mg tablet 8.6 mg PO BID PRN 08/11/17 Sertraline HCl [Zoloft] 50 mg PO DAILY #30 tab 05/13/18 carvedilol 6.25 mg tablet 6.25 mg PO BID #60 tab 05/14/18 clopidogrel 75 mg tablet 75 mg PO DAILY #30 tab 05/14/18 furosemide 80 mg tablet 80 mg PO BID #60 tab 05/14/18 losartan 25 mg tablet 25 mg PO DAILY #30 tab 05/14/18 magnesium oxide 400 mg (241.3 mg magnesium) tablet 400 mg PO DAILY #30 tab 05/14/18 nitroglycerin 0.4 mg sublingual tablet 0.4 mg SUBLINGUAL Q5M PRN #25 tab 05/14/18 potassium chloride ER 20 mEq tablet,extended release 20 meq PO DAILY #30 tab 05/14/18 spironolactone 25 mg tablet 25 mg PO DAILY #30 tab 05/14/18 Albuterol Inhaler [Ventolin Hfa] 1 - 2 puff INHALATION Q4H PRN PRN #1 inhaler 05/26/18 Aspirin E.C. [Ecotrin] 81 mg PO TID 05/26/18 Atorvastatin Calcium 40 mg PO DAILY 05/26/18 Azithromycin [Zithromax Z-George] 250 mg PO UD #1 box 05/26/18 Benzonatate [Tessalon Perle] 200 mg PO TID PRN PRN #20 capsule 05/26/18 hydrOXYzine pamoate capsule [Vistaril pamoate capsule] 50 mg PO TID PRN PRN #30 capsule 05/26/18 Primary Care Physician: Jesus aSrah [Primary Care Provider] - Please follow up with your Primary Care Physician in: 1-2 weeks Please Follow Up With: Faisal Ramirez MD When: As directed Disposition: Home Minutes spent on discharge:: 35 Patient Condition:: Stable Medical Necessity - Tobacco Use Smoking Status: Former smoker Tobacco Use: Cigarettes Meaningful Use Info Meaningful Use Diagnoses (Choose all that apply): None applicable <VerazuleimaJuan R - Last Filed: 05/31/18 13:00> Discharge Date and Diagnosis - Secondary Discharge Diagnosis Chronic Problems (Last Updated 05/30/18 @ 22:29 by Sofiya Ritchie MD) CAD (coronary artery disease) (Chronic) Severe left ventricular systolic dysfunction (Chronic) Polysubstance abuse (Chronic) marijuana, cocaine 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/28/17) SICD per Dr Berry @ [facility] Nicotine dependence (Chronic) Old myocardial infarction (Chronic) Hypertension (Chronic) History of coronary artery stent placement (Chronic 04/30/18) PCI-MEHRDAD-LAD 08/2014, [id number]-Mid CX and Prox-Mid RCA 03/18/15, Thrombosis of CX stent 03/25/15. MEHRDAD to RCA (2.7 X 16 Promus Synergy) 04/30/2018 Atherosclerosis of coronary artery of [place] heart without angina pectoris (Chronic) PCI-MEHRDAD-LAD 08/2014, [id number]-Mid CX and Prox-Mid RCA 03/18/15, Thrombosis of CX stent 03/25/15 Ischemic cardiomyopathy (Chronic) EF 20% per echo 08/08/2016 Hyperlipidemia (Chronic) Type 2 diabetes mellitus (Chronic) Chronic systolic CHF (congestive heart failure) (Chronic) Hospital Course and Treatment Imaging Results: 05/31/18 07:20 Stress Test Echo w/o Contrast [ECHO] Routine Summary of Care Provided: This patient was seen in conjunction with Alfredo Gifford PA-C . I have independently interviewed and examined the patient and reviewed pertinent historical, laboratory, and other data. Please refer to Alfredo Gifford PA-C note for details of this patient's presentation, findings, and recommendations. I have reviewed Alfredo Gifford PA-C note and concur with documented findings. In brief, patient is a 42-year-old gentleman with significant past cardiac history including ischemic cardiomyopathy, CAD with previous stent placement, history of polysubstance abuse who presented with chest pain and was placed in a monitored bed [place] was ruled out with serial cardiac enzymes subsequently underwent a nuclear stress test which was negative for stress-induced ischemia discharge home instructed to follow-up with PCP for subsequent care Hospital course as documented above Disposition; home - Physical Exam Vital Signs Temp Pulse Resp BP Pulse Ox 97.9 F 104 H 16 122/45 H 93 05/31/18 10:15 05/31/18 10:49 05/31/18 10:15 05/31/18 10:15 05/31/18 10:15 Oxygen Flow Rate (L/min) 2 Oxygen Delivery Method Room Air Weight: 89.1 kg Body Mass Index (BMI) 26.6 Finger Stick Blood Glucose 119 Intake and Output for Last 24 Hours 05/29/18 05/30/18 05/31/18 23:59 23:59 23:59 Intake Total 240 / 240 Balance 240 / 240 Microbiology Past 72 Hours 05/31/18 00:03 Respiratory Panel (PCR) - Final Mucosa - Nasopharyngeal Rhinovirus RSV B Laboratory Tests Past 24 Hrs 05/30/18 05/30/18 05/30/18 20:55 20:55 20:55 WBC 8.3 RBC 4.54 L Hgb 13.5 Hct 40.3 MCV 88.8 MCH 29.7 MCHC 33.5 RDW 13.2 RDW Differential 42.8 Plt Count 184 MPV 9.8 Immature Gran % (Auto) 0.200 Neut % (Auto) 72.7 H Lymph % (Auto) 17.7 L [place] % (Auto) 8.8 Eos % (Auto) 0.2 Baso % (Auto) 0.4 Absolute Neuts (auto) 6.0 Absolute Lymphs (auto) 1.47 Total Counted Not Reportable D-Dimer Quant (PE/DVT) 0.29 Sodium 137 Potassium 3.5 Chloride 105 Carbon Dioxide 24.0 Anion Gap 8 BUN 10 Creatinine 0.99 Estim Creat Clear Calc 108.87 Est GFR (MDRD) Af Amer 108 Est GFR (MDRD) Non-Af 89 BUN/Creatinine Ratio 10.1 Glucose 233 H Lactic Acid Calcium 7.9 L Troponin I 0.043 05/30/18 05/31/18 05/31/18 20:55 00:04 03:40 WBC RBC Hgb Hct MCV MCH MCHC RDW RDW Differential Plt Count MPV Immature Gran % (Auto) Neut % (Auto) Lymph % (Auto) [place] % (Auto) Eos % (Auto) Baso % (Auto) Absolute Neuts (auto) Absolute Lymphs (auto) Total Counted D-Dimer Quant (PE/DVT) Sodium Potassium Chloride Carbon Dioxide Anion Gap BUN Creatinine Estim Creat Clear Calc Est GFR (MDRD) Af Amer Est GFR (MDRD) Non-Af BUN/Creatinine Ratio Glucose Lactic Acid 1.3 Calcium Troponin I 0.030 0.023 POC Glucose 05/31/18 05/31/18 05/31/18 10:14 07:41 00:28 POC Glucose 277 H 307 H 264 H Code Visit OBSV E&M: 61332 Observation care discharge
--- NOTE | 2018-05-31 12:45 | DS.PCM_ITS ---
<Alfredo Gifford - Last Filed: 05/31/18 12:39> Discharge Date and Diagnosis Date of Admission: 05/30/18 Date of Discharge: 05/31/18 - Primary Discharge Diagnosis Chest pain URI 2/2 rhinovirus and RSV-B Asthma with recent exacerbation Ischemic cardiomyopathy CAD with prior stents Polysubstance abuse HLD T2DM Chronic Systolic CHF HTN HLD ICD in place - Secondary Discharge Diagnosis Chronic Problems (Last Updated 05/30/18 @ 22:29 by Sofiya Ritchie MD) CAD (coronary artery disease) (Chronic) Severe left ventricular systolic dysfunction (Chronic) Polysubstance abuse (Chronic) marijuana, cocaine 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/28/17) SICD per Dr Berry @ [facility] Nicotine dependence (Chronic) Old myocardial infarction (Chronic) Hypertension (Chronic) History of coronary artery stent placement (Chronic 04/30/18) PCI-MEHRDAD-LAD 08/2014, ICH-KLV-[facility]-Mid CX and Prox-Mid RCA 03/18/15, Thrombosis of CX stent 03/25/15. MEHRDAD to RCA (2.7 X 16 Promus Synergy) 04/30/2018 Atherosclerosis of coronary artery of platinum heart without angina pectoris (Chronic) PCI-MEHRDAD-LAD 08/2014, JEV-IDN-Lxos-Mid CX and Prox-Mid RCA 03/18/15, Thrombosis of CX stent 03/25/15 Ischemic cardiomyopathy (Chronic) EF 20% per echo 08/08/2016 Hyperlipidemia (Chronic) Type 2 diabetes mellitus (Chronic) Chronic systolic CHF (congestive heart failure) (Chronic) Hospital Course and Treatment Imaging Results: 05/31/18 07:20 Stress Test Echo w/o Contrast [ECHO] Routine Interpretation Summary The estimated ejection fraction is 15 %. Lateral-Basal: Akinetic at baselin Mid-Anterior : Severely Hypokinetic at baseline. Normal, adequate, dobutamine echocardiogram. Negative for ischemia by EKG and echocardiographic anterior. Rare PVC noted. Appropriate blood pressure response to dobutamine. Patient had baseline severe LV dysfunction with akinetic anterolateral cha. Patient had progressive contractility of the inferior and posterior cha during infusion. No anginal symptoms noted. Appropriate blood pressure response to dobutamine. Final LVEF of 20%. No complications. RAD/Chest PA and Lateral IMPRESSION: The lung song are generally hyperexpanded without major consolidation or major atelectasis. Persistent interstitial changes in the perihilar and medial lower lung zone lung zone distribution substantially improved from the previous exam of April 25, 2019 consistent with resolving edema. Fissures remain thickened without other evidence of a substantial pleural effusion. Stable cardiac size. Defibrillator device of the anterior chest wall is unchanged. Consults: Ramirez - cardiology Operations: None Procedures: 2-D Echocardiogram, Stress test Summary of Care Provided: Hospital Course: The patient is a 42 year old M with a complicated cardiac hx as above, ICD in place, ischemic CM, CAD with stents, also with polysubstance abuse, who presented to the ER with SOB and chest pain. This had been worsening for several days, and the pain was described as shooting pain across the left chest. He also had a dry cough. He was recently prescribed zithromax prednisone for an asthma exacerbation. CXR showed improved BL congestion. He had been in the ER 3 x within the last 2 weeks. He was admitted to the PCU and cardiology was consulted. Troponins were negative. The following morning he had a stress echo with no new changes and cardiology was agreeable to discharge home. A respiratory panel demonstrated that he had acute RSV-B and rhinovirus infections likely responsible for his recent issues. The day of discharge he had no SOB, chest pain, and no wheezing. He was advised on supportive care and rest. He was discharge home in stable condition and will need to follow up with his PCP in 1- 2 weeks, and with Cardiology as directed by them. This patient was seen by Alfredo Gifford PA-C under the supervision of Doctor Schreiber. [] - Physical Exam General: Alert, Oriented x3, Cooperative HEENT: Atraumatic, PERRLA, EOMI, Normocephalic Neck: Supple, No JVD, Negative Carotid Bruits Lungs: Clear to auscultation, Normal air movement Cardiovascular: Regular rate, No murmurs Abdomen: Bowel Sounds Present, Soft, Non Tender Extremities: No edema, Capillary Refill Less than 3 Seconds Skin: No rashes, No breakdown Musculoskeletal: No Tenderness to Palpation of Joints or Extremities Neurological: Cranial nerves II-XII grossly intact Psych/Mental Status: Normal Affect, Appropriate, Alert and oriented to time, place, person, mood and affect Vital Signs Temp Pulse Resp BP Pulse Ox 97.9 F 104 H 16 122/45 H 93 05/31/18 10:15 05/31/18 10:49 05/31/18 10:15 05/31/18 10:15 05/31/18 10:15 Oxygen Flow Rate (L/min) 2 Oxygen Delivery Method Room Air Weight: 196 lb 6.91 oz Body Mass Index (BMI) 26.6 Finger Stick Blood Glucose 119 Intake and Output for Last 24 Hours 05/29/18 05/30/18 05/31/18 23:59 23:59 23:59 Intake Total 240 / 240 Balance 240 / 240 Microbiology Past 72 Hours 05/31/18 00:03 Respiratory Panel (PCR) - Final Mucosa - Nasopharyngeal Rhinovirus RSV B Laboratory Tests Past 24 Hrs 05/30/18 05/30/18 05/30/18 20:55 20:55 20:55 WBC 8.3 RBC 4.54 L Hgb 13.5 Hct 40.3 MCV 88.8 MCH 29.7 MCHC 33.5 RDW 13.2 RDW Differential 42.8 Plt Count 184 MPV 9.8 Immature Gran % (Auto) 0.200 Neut % (Auto) 72.7 H Lymph % (Auto) 17.7 L Sebastian % (Auto) 8.8 Eos % (Auto) 0.2 Baso % (Auto) 0.4 Absolute Neuts (auto) 6.0 Absolute Lymphs (auto) 1.47 Total Counted Not Reportable D-Dimer Quant (PE/DVT) 0.29 Sodium 137 Potassium 3.5 Chloride 105 Carbon Dioxide 24.0 Anion Gap 8 BUN 10 Creatinine 0.99 Estim Creat Clear Calc 108.87 Est GFR (MDRD) Af Amer 108 Est GFR (MDRD) Non-Af 89 BUN/Creatinine Ratio 10.1 Glucose 233 H Lactic Acid Calcium 7.9 L Troponin I 0.043 05/30/18 05/31/18 05/31/18 20:55 00:04 03:40 WBC RBC Hgb Hct MCV MCH MCHC RDW RDW Differential Plt Count MPV Immature Gran % (Auto) Neut % (Auto) Lymph % (Auto) Sebastian % (Auto) Eos % (Auto) Baso % (Auto) Absolute Neuts (auto) Absolute Lymphs (auto) Total Counted D-Dimer Quant (PE/DVT) Sodium Potassium Chloride Carbon Dioxide Anion Gap BUN Creatinine Estim Creat Clear Calc Est GFR (MDRD) Af Amer Est GFR (MDRD) Non-Af BUN/Creatinine Ratio Glucose Lactic Acid 1.3 Calcium Troponin I 0.030 0.023 POC Glucose 05/31/18 05/31/18 05/31/18 10:14 07:41 00:28 POC Glucose 277 H 307 H 264 H Discharge Diet: Low fat/ Low Cholesterol, 1800 Calorie Control Diet, 2000 mg Sodium Diet Discharge Activity: Return to Normal Activity Home Medications: Medications to take at Discharge Insulin Glargine,Hum.rec.anlog [Basaglar Kwikpen U-100] 14 unit SQ DAILY 04/09/17 sennosides 8.6 mg tablet 8.6 mg PO BID PRN 08/11/17 Sertraline HCl [Zoloft] 50 mg PO DAILY #30 tab 05/13/18 carvedilol 6.25 mg tablet 6.25 mg PO BID #60 tab 05/14/18 clopidogrel 75 mg tablet 75 mg PO DAILY #30 tab 05/14/18 furosemide 80 mg tablet 80 mg PO BID #60 tab 05/14/18 losartan 25 mg tablet 25 mg PO DAILY #30 tab 05/14/18 magnesium oxide 400 mg (241.3 mg magnesium) tablet 400 mg PO DAILY #30 tab 05/14/18 nitroglycerin 0.4 mg sublingual tablet 0.4 mg SUBLINGUAL Q5M PRN #25 tab 05/14/18 potassium chloride ER 20 mEq tablet,extended release 20 meq PO DAILY #30 tab 05/14/18 spironolactone 25 mg tablet 25 mg PO DAILY #30 tab 05/14/18 Albuterol Inhaler [Ventolin Hfa] 1 - 2 puff INHALATION Q4H PRN PRN #1 inhaler 05/26/18 Aspirin E.C. [Ecotrin] 81 mg PO TID 05/26/18 Atorvastatin Calcium 40 mg PO DAILY 05/26/18 Azithromycin [Zithromax Z-George] 250 mg PO UD #1 box 05/26/18 Benzonatate [Tessalon Perle] 200 mg PO TID PRN PRN #20 capsule 05/26/18 hydrOXYzine pamoate capsule [Vistaril pamoate capsule] 50 mg PO TID PRN PRN #30 capsule 05/26/18 Primary Care Physician: Jesus Sarah [Primary Care Provider] - Please follow up with your Primary Care Physician in: 1-2 weeks Please Follow Up With: Faisal Ramirez MD When: As directed Disposition: Home Minutes spent on discharge:: 35 Patient Condition:: Stable Medical Necessity - Tobacco Use Smoking Status: Former smoker Tobacco Use: Cigarettes Meaningful Use Info Meaningful Use Diagnoses (Choose all that apply): None applicable <VerazuleimaJuan R - Last Filed: 05/31/18 13:00> Discharge Date and Diagnosis - Secondary Discharge Diagnosis Chronic Problems (Last Updated 05/30/18 @ 22:29 by Sofiya Ritchie MD) CAD (coronary artery disease) (Chronic) Severe left ventricular systolic dysfunction (Chronic) Polysubstance abuse (Chronic) marijuana, cocaine 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/28/17) SICD per Dr Berry @ [facility] Nicotine dependence (Chronic) Old myocardial infarction (Chronic) Hypertension (Chronic) History of coronary artery stent placement (Chronic 04/30/18) PCI-MEHRDAD-LAD 08/2014, LMV-XKB-[facility]-Mid CX and Prox-Mid RCA 03/18/15, Thrombosis of CX stent 03/25/15. MEHRDAD to RCA (2.7 X 16 Promus Synergy) 04/30/2018 Atherosclerosis of coronary artery of platinum heart without angina pectoris (Chronic) PCI-MEHRDAD-LAD 08/2014, LCB-JIM-[place]-Mid CX and Prox-Mid RCA 03/18/15, Thrombosis of CX stent 03/25/15 Ischemic cardiomyopathy (Chronic) EF 20% per echo 08/08/2016 Hyperlipidemia (Chronic) Type 2 diabetes mellitus (Chronic) Chronic systolic CHF (congestive heart failure) (Chronic) Hospital Course and Treatment Imaging Results: 05/31/18 07:20 Stress Test Echo w/o Contrast [ECHO] Routine Summary of Care Provided: This patient was seen in conjunction with Alfredo Gifford PA-C . I have independently interviewed and examined the patient and reviewed pertinent historical, laboratory, and other data. Please refer to Alfredo Gifford PA-C note for details of this patient's presentation, findings, and recommendations. I have reviewed Alfredo Gifford PA-C note and concur with documented findings. In brief, patient is a 42-year-old gentleman with significant past cardiac history including ischemic cardiomyopathy, CAD with previous stent placement, history of polysubstance abuse who presented with chest pain and was placed in a monitored bed NM was ruled out with serial cardiac enzymes subsequently underwent a nuclear stress test which was negative for stress-induced ischemia discharge home instructed to follow-up with PCP for subsequent care Hospital course as documented above Disposition; home - Physical Exam Vital Signs Temp Pulse Resp BP Pulse Ox 97.9 F 104 H 16 122/45 H 93 05/31/18 10:15 05/31/18 10:49 05/31/18 10:15 05/31/18 10:15 05/31/18 10:15 Oxygen Flow Rate (L/min) 2 Oxygen Delivery Method Room Air Weight: 89.1 kg Body Mass Index (BMI) 26.6 Finger Stick Blood Glucose 119 Intake and Output for Last 24 Hours 05/29/18 05/30/18 05/31/18 23:59 23:59 23:59 Intake Total 240 / 240 Balance 240 / 240 Microbiology Past 72 Hours 05/31/18 00:03 Respiratory Panel (PCR) - Final Mucosa - Nasopharyngeal Rhinovirus RSV B Laboratory Tests Past 24 Hrs 05/30/18 05/30/18 05/30/18 20:55 20:55 20:55 WBC 8.3 RBC 4.54 L Hgb 13.5 Hct 40.3 MCV 88.8 MCH 29.7 MCHC 33.5 RDW 13.2 RDW Differential 42.8 Plt Count 184 MPV 9.8 Immature Gran % (Auto) 0.200 Neut % (Auto) 72.7 H Lymph % (Auto) 17.7 L Sebastian % (Auto) 8.8 Eos % (Auto) 0.2 Baso % (Auto) 0.4 Absolute Neuts (auto) 6.0 Absolute Lymphs (auto) 1.47 Total Counted Not Reportable D-Dimer Quant (PE/DVT) 0.29 Sodium 137 Potassium 3.5 Chloride 105 Carbon Dioxide 24.0 Anion Gap 8 BUN 10 Creatinine 0.99 Estim Creat Clear Calc 108.87 Est GFR (MDRD) Af Amer 108 Est GFR (MDRD) Non-Af 89 BUN/Creatinine Ratio 10.1 Glucose 233 H Lactic Acid Calcium 7.9 L Troponin I 0.043 05/30/18 05/31/18 05/31/18 20:55 00:04 03:40 WBC RBC Hgb Hct MCV MCH MCHC RDW RDW Differential Plt Count MPV Immature Gran % (Auto) Neut % (Auto) Lymph % (Auto) Sebastian % (Auto) Eos % (Auto) Baso % (Auto) Absolute Neuts (auto) Absolute Lymphs (auto) Total Counted D-Dimer Quant (PE/DVT) Sodium Potassium Chloride Carbon Dioxide Anion Gap BUN Creatinine Estim Creat Clear Calc Est GFR (MDRD) Af Amer Est GFR (MDRD) Non-Af BUN/Creatinine Ratio Glucose Lactic Acid 1.3 Calcium Troponin I 0.030 0.023 POC Glucose 05/31/18 05/31/18 05/31/18 10:14 07:41 00:28 POC Glucose 277 H 307 H 264 H Code Visit OBSV E&M: [id number] Observation care discharge
== END 2018-05-31 11:14 | disposition home or self-care (01) ==
LOC: ED 21:07 → PCU 22:46
PROVIDERS: Admitting Provider Hospitalist; Emergency Provider Emergency Medicine; Family Provider Internal Medicine; PCP Internal Medicine; Referring Provider Hospitalist; Visit Provider Internal Medicine
DX: R07.89 Other chest pain (principal); J06.9 Acute upper respiratory infection, unspecified; B97.89 Other viral agents as the cause of diseases classified elsewhere; B97.4 Respiratory syncytial virus as the cause of diseases classified elsewhere; E78.5 Hyperlipidemia, unspecified; I25.10 Atherosclerotic heart disease of native coronary artery without angina pectoris; I11.0 Hypertensive heart disease with heart failure; I50.22 Chronic systolic (congestive) heart failure; I25.2 Old myocardial infarction; I25.5 Ischemic cardiomyopathy; E11.42 Type 2 diabetes mellitus with diabetic polyneuropathy; F32.9 Major depressive disorder, single episode, unspecified; I44.4 Left anterior fascicular block; F41.9 Anxiety disorder, unspecified; Z79.899 Other long term (current) drug therapy; Z79.4 Long term (current) use of insulin; Z95.5 Presence of coronary angioplasty implant and graft; Z95.810 Presence of automatic (implantable) cardiac defibrillator; Z79.52 Long term (current) use of systemic steroids; Z79.02 Long term (current) use of antithrombotics/antiplatelets; Z79.82 Long term (current) use of aspirin; Z87.891 Personal history of nicotine dependence; Z91.19 Patient's noncompliance with other medical treatment and regimen
CPT/HCPCS: 36415; 71046; 80048; 82962; 83605; 84484; 85025; 85379; 87633; 93005; 93017; 93350; 94640; 96372; 99218; 99285; J7040; A4216; G0378

== ENCOUNTER 2018-06-12 23:05 | Inpatient (IN) | payer MEDICAID, SELFPAY ==
[2018-04-30 13:15] VITALS: BMI 25.9
[2018-05-30 23:15] VITALS: BMI 26.6
[2018-06-12 23:05] VITALS: RESP 30
[2018-06-12 23:06] VITALS: BP 131/90; PULSE 102; RESP 24; TEMP 36.2; O2SAT 98; BMI 27.0
[2018-06-12 23:14] VITALS: BP 144/108; PULSE 97; RESP 34; TEMP 36.4; O2SAT 98
--- NOTE | 2018-06-12 23:28 | RAD_ITS ---
STUDY: X-RAY CHEST REASON FOR EXAM: Male, 42 years old. Shortness of breath and cough TECHNIQUE: PA and lateral views of the chest. 05/30/2018 COMPARISON: None. FINDINGS: There is mild central pulmonary vascular congestion with associated bilateral perihilar perihilar and bibasilar airspace infiltration, new from prior imaging. No pleural effusion or pneumothorax. Mild cardiomegaly, unchanged. External AICD device in place with single lead overlying the right atrium. Normal mediastinum and kelly. Normal visualized aortic arch and descending thoracic aorta. Normal visualized thoracic spine. Normal visualized ribs, clavicles, and shoulders. There is no demonstrated abnormality of the visualized soft tissue structures of the upper abdomen. RAD/Chest PA and Lateral IMPRESSION: Moderate congestive heart failure. Electronically Signed: Mateus Seth MD at 1:46 EST Tel , Service support ,
--- NOTE | 2018-06-12 23:28 | EKG12_ITS ---
Test Reason : Blood Pressure : / mmHG Vent. Rate : 090 BPM Atrial Rate : 090 BPM P-R Int : 170 ms QRS Dur : 090 ms QT Int : 334 ms P-R-T Axes : 058 -55 083 degrees QTc Int : 408 ms Normal sinus rhythm Left anterior fascicular block Anteroseptal infarct , age undetermined Abnormal ECG Confirmed by CHAR MCKEON, HAIM ([id number]), editor department EDELMIRA RIVAS ([id number]) on 06/15/2018 8:23:24 AM Referred By: CHANDAN Confirmed By:HAIM PARDO MD
[2018-06-12] MEDS: LORazepam 2 MG/ML Syringe 0.5 MG IV (23:47)
[2018-06-12 23:51] VITALS: O2SAT 98
[2018-06-12 23:51] LABS: Absolute Lymphocyte Count 1.94 X10^3/ul (0.83-4.51); Absolute Neutrophil Count 7.4 X10^3/uL (2.0-7.7); Basophil# 0.02 X10^3/uL; Basophil% 0.2 % (0-1); Eosinophil# 0.27 X10^3/uL; Eosinophils% 2.6 % (0-5); Hemoglobin 13.5 g/dl (13.0-16.5); Lymphocyte # 1.94 X10^3/ul (4.0); Lymphocyte % 18.9 % (19-41); Mean Corp Hgb Conc 34.6 g/gl (32-36); Mean Corpuscular Hgb 30.3 pg (27.0-32.0); Mean Corpuscular Volume 87.4 fL (80-94); Mean Platelet Vol. 9.7 fl (6.2-12.0); Monocyte# 0.61 X10^3/uL; Monocyte% 5.9 % (0-10); Neutrophil # 7.42 X10^3/uL (2.7-7.7); Neutrophil % 72.2 % (47-70); Platelet Count 248 K/mm3 (150-450); RBC Distribution Width CV 12.8 % (11.6-14.6); RBC Distribution Width SD 40.1 fl (35.1-43.9); Red Blood Count 4.46 M/mm3 (4.6-6.2); White Blood Count 10.3 K/mm3 (4.4-11.0)
[2018-06-12 23:52] LABS: POSITIVE COUNT NO; POSITIVE DIFFERENTIAL NO; POSITIVE MORPHOLOGY NO
[2018-06-13] VITALS (19 sets, daily range): BP systolic 98–181; BP diastolic 59–119; PULSE 73–114; RESP 16–31; TEMP 35.9–37; O2SAT 95–99; BMI 26.6; BMI 26.7
[2018-06-13 00:20] LABS: Anion Gap 7 (5-15); BUN 12 mg/dL (7-18); BUN/Creat Ratio 15.2 RATIO (10-20); Calcium,Total 7.8 mg/dL (8.5-10.1); Chloride 106 mmol/L (98-107); Creatinine, Serum 0.79 mg/dL (0.70-1.30); EST Glomerular Filtration Rate 116 mL/min (>60); Est Glom Filt Rate - Afr Amer 140 mL/min (>60); Estimated Creatinine Clearance 140.47 ml/min; Glucose 373 mg/dL (74-106); Sodium Level 135 mmol/L (136-145)
[2018-06-13 00:22] LABS: Lactic Acid 0.8 mmol/L (0.4-2.0)
--- NOTE | 2018-06-13 01:41 | ED.RN ---
PT WAS FOUND STANDING UP URINATING AT BEDSIDE. PT STATED HE HAD TO GO, SORRY. PT ASSISTED BACK TO BED AND PLACED BACK ON THE MONITOR
--- NOTE | 2018-06-13 02:25 | PCM.HP.STD ---
Problem List (1) Acute exacerbation of CHF (congestive heart failure) Status: Acute Qualifiers: Heart failure type: systolic Qualified Code(s): I50.23 - Acute on chronic systolic (congestive) heart failure (2) Asthma exacerbation Status: Acute Qualifiers: Asthma persistence: unspecified (3) Acute respiratory failure with hypoxia Status: Acute (4) CAD (coronary artery disease) Status: Chronic Qualifiers: Coronary Disease-Associated Artery/Lesion type: unspecified vessel or lesion type [place] vs. transplanted heart: unspecified whether [place] or transplanted heart Associated angina: angina presence unspecified Qualified Code(s): I25.10 - Atherosclerotic heart disease of [place] coronary artery without angina pectoris (5) Polysubstance abuse Status: Chronic Comment: marijuana, cocaine (6) Presence of automatic implantable cardioverter-defibrillator Status: Chronic Comment: SICD per Dr Berry @ [facility] (7) Nicotine dependence Status: Chronic Qualifiers: Nicotine product type: cigarettes Substance use status: unspecified nicotine-induced disorder Qualified Code(s): F17.219 - Nicotine dependence, cigarettes, with unspecified nicotine-induced disorders (8) Hypertension Status: Chronic Qualifiers: Hypertension type: essential hypertension Qualified Code(s): I10 - Essential (primary) hypertension (9) Atherosclerosis of coronary artery of alut[place]q heart without angina pectoris Status: Chronic Qualifiers: Coronary Disease-Associated Artery/Lesion type: unspecified vessel or lesion type Qualified Code(s): I25.10 - Atherosclerotic heart disease of al[place]q coronary artery without angina pectoris Comment: PCI-MEHRDAD-LAD 08/2014, IVH-SMG-Bywy-Mid CX and Prox-Mid RCA 03/18/15, Thrombosis of CX stent 03/25/15 (10) Ischemic cardiomyopathy Status: Chronic Comment: EF 20% per echo 08/08/2016 (11) Hyperlipidemia Status: Chronic Qualifiers: Hyperlipidemia type: pure hypercholesterolemia Qualified Code(s): E78.00 - Pure hypercholesterolemia, unspecified; E78.0 - Pure hypercholesterolemia (12) Type 2 diabetes mellitus Status: Chronic Qualifiers: Diabetes mellitus care home insulin use: with care home use Diabetes mellitus complication status: with unspecified complications Qualified Code(s): E11.8 - Type 2 diabetes mellitus with unspecified complications; Z79.4 - prison (current) use of insulin (13) Chronic systolic CHF (congestive heart failure) Status: Chronic History of Present Illness Date of Admission: 06/13/18 Chief Complaint: Dyspnea, Cough, Wheezing, Arthralgia, Myalgia. The patient is a 42 y/o M w/ PMHx: Chronic Systolic CHF/Ischemic Cardiomyopathy s/p AICD, CAD s/p PCI, HTN, HLD, Depression and Anxiety, Diabetes mellitus type II, Tobacco use, Polysubstance Abuse (cocaine, cannabis), Asthma who presents to the [facility] ED on 06/13/18 with history of recent discharge 05/31/18 following evaluation for asthma exacerbation secondary to RSV-B and rhinoviral infections w/ associated chest pain at that time with negative cardiac stress testing who now re-presents with 3-4 day history of recurrent productive cough, nausea, emesis with poor oral intake, loose stools, headache, muscle aches and joint aches. He denies any recent weight gain or market lower extremity edema but notes severe orthopnea. An ex-girlfriend present notes he has been walking out in the cold, unsure if recent drug usage and notes has intermittently while feeling poorly taking his medications, she notes he has over the last 2 days but unsure prior. In the ED work-up included T 97.1, heart rate 102, BP 131/90, respiratory rate 24, 98% on room air, CBC with WBC 10.3, hemoglobin 13.5, platelet 248 without market shift, BMP with sodium 135, glucose 373, lactic acid 0.8, BNP pending, rapid influenza negative, blood culture x2 pending per ED, chest x-ray with mild central pulmonary vascular congestion. In the ED patient administered Ativan, IV Lasix 40 mg x1, DuoNeb's as well as solumedrol. Past Medical History Past Medical History (Chronic Problems): Chronic Problems (Last Updated 05/30/18 @ 22:29 by Sofiya Ritchie MD) CAD (coronary artery disease) (Chronic) Severe left ventricular systolic dysfunction (Chronic) Polysubstance abuse (Chronic) marijuana, cocaine 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/28/17) SICD per Dr Berry @ [facility] Nicotine dependence (Chronic) Old myocardial infarction (Chronic) Hypertension (Chronic) History of coronary artery stent placement (Chronic 04/30/18) PCI-MEHRDAD-LAD 08/2014, FEL-AJM-Khje-Mid CX and Prox-Mid RCA 03/18/15, Thrombosis of CX stent 03/25/15. MEHRDAD to RCA (2.7 X 16 Promus Synergy) 04/30/2018 Atherosclerosis of coronary artery of alutiiq heart without angina pectoris (Chronic) PCI-MEHRDAD-LAD 08/2014, WTH-IMA-Ybyh-Mid CX and Prox-Mid RCA 03/18/15, Thrombosis of CX stent 03/25/15 Ischemic cardiomyopathy (Chronic) EF 20% per echo 08/08/2016 Hyperlipidemia (Chronic) Type 2 diabetes mellitus (Chronic) Chronic systolic CHF (congestive heart failure) (Chronic) Medical History: Medical History (Last Updated 05/30/18 @ 22:29 by Sofiya Ritchie MD) Severe left ventricular systolic dysfunction (Chronic) I51.9 Polysubstance abuse (Chronic) F19.10 marijuana, cocaine Nicotine dependence (Chronic) F17.200 Old myocardial infarction (Chronic) I25.2 Hypertension (Chronic) I10 Atherosclerosis of coronary artery of al[place]q heart without angina pectoris (Chronic) I25.10 PCI-MEHRDAD-LAD 08/2014, TNM-[id number]-Wxrw-Mid CX and Prox-Mid RCA 03/18/15, Thrombosis of CX stent 03/25/15 Ischemic cardiomyopathy (Chronic) I25.5 EF 20% per echo 08/08/2016 Hyperlipidemia (Chronic) E78.5 Type 2 diabetes mellitus (Chronic) E11.9 Chronic systolic CHF (congestive heart failure) (Chronic) I50.22 Depression F32.9 Peripheral neuropathy G62.9 Allergies No Known Allergies Allergy (Verified 06/12/18 23:11) Home Medications: Ambulatory Orders Medication Instructions Recorded Insulin Glargine,Hum.rec.anlog 14 unit SQ DAILY 04/09/17 [Lu Fam U-100] Sertraline HCl [Zoloft] 50 mg PO DAILY #30 tab 05/13/18 carvedilol 6.25 mg tablet 6.25 mg PO BID #60 tab 05/14/18 clopidogrel 75 mg tablet 75 mg PO DAILY #30 tab 05/14/18 furosemide 80 mg tablet 80 mg PO BID #60 tab 05/14/18 losartan 25 mg tablet 25 mg PO DAILY #30 tab 05/14/18 magnesium oxide 400 mg (241.3 mg 400 mg PO DAILY #30 tab 01/14/19 magnesium) tablet nitroglycerin 0.4 mg sublingual 0.4 mg SUBLINGUAL Q5M PRN #25 tab 05/14/18 tablet potassium chloride ER 20 mEq 20 meq PO DAILY #30 tab 05/14/18 tablet,extended release spironolactone 25 mg tablet 25 mg PO DAILY #30 tab 05/14/18 Albuterol Inhaler [Ventolin Hfa] 1 - 2 puff INHALATION Q4H PRN PRN 05/26/18 #1 inhaler Aspirin E.C. [Ecotrin] 81 mg PO TID 05/26/18 Atorvastatin Calcium 40 mg PO DAILY 05/26/18 hydrOXYzine pamoate capsule 50 mg PO TID PRN PRN #30 capsule 05/26/18 [Vistaril pamoate capsule] Surgical History: Surgical History (Last Reviewed 05/14/18 @ 10:06 by Savanna Dave) 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) Onset Date: 06/28/[address] Berry @ [facility] History of coronary artery stent placement (Chronic) Onset Date: 04/30/18 Z95.5 PCI-MEHRDAD-LAD 08/2014, RFK-IFQ-Xfea-Mid CX and Prox-Mid RCA 03/18/15, Thrombosis of CX stent 03/25/15. MEHRDAD to RCA (2.7 X 16 Promus Synergy) 04/30/2018 History of appendectomy Z90.49 Surgical History: - - Cardiac stent August 2014 Psychiatric History: Anxiety, Depression Lives: Spouse/ Significant Other Smoking Status: Current some day smoker Tobacco Use: Cigarettes Alcohol: None Drugs: Cocaine, Marijuana - *Family History Paternal Family History: Family History (Last Reviewed 05/14/18 @ 10:06 by Savanna Dave) Mother CAD (coronary artery disease) Diabetes Hypertension Myocardial infarction Father CAD (coronary artery disease) Diabetes Hypertension Myocardial infarction Brother Hypertension History Items: Diabetes, High Cholesterol, Heart Disease, Hypertension Maternal Family History: Family History (Last Reviewed 05/14/18 @ 10:06 by Savanna Dave) Mother CAD (coronary artery disease) Diabetes Hypertension Myocardial infarction Father CAD (coronary artery disease) Diabetes Hypertension Myocardial infarction Brother Hypertension History Items: Diabetes, High Cholesterol, Heart Disease, Hypertension Review of Systems Constitutional: Reports: Anorexia, Chills, Fever, Malaise, Weakness, Fatigue. Denies: Weight Change HEENT: Denies: Head Aches, Sinus Congestion, Sinus Drainage Cardiovascular: Denies: Chest Pain, Palpitations Respiratory: Reports: Cough, Shortness of Breath, Shortness of breath at rest, Shortness of breath upon exertion, Sputum production, Wheezing Gastrointestinal: Reports: Diarrhea, Nausea, Vomiting. Denies: Abdominal Pain Genitourinary: Denies: Dysuria Musculoskeletal: Reports: Joint Pain, Muscle pain. Denies: Joint Tenderness Skin: Denies: Rash, Wounds Neurological: Denies: Numbness, Tingling, Focal weakness Psychiatric: Reports: Anxiety, Depression. Denies: Homicidal Ideations, Suicidal Ideations Hematologic/ Lymphatic: Reports: Easy Bruising, Easy Bleeding. Denies: Anemia VTE Information - Inpt Only VTE Present on Admission: No VTE Mechan Device Prophylaxis: SCD's VTE Pharm Prophylaxis ordered?: Yes Patient Problems: Active and Suspected Problems (Last Updated 05/30/18 @ 22:29 by Sofiya Ritchie MD) Acute exacerbation of CHF (congestive heart failure) (Acute) Asthma exacerbation (Acute) Acute respiratory failure with hypoxia (Acute) Subjective: Seated upright in the ED bed, notes cannot lean back or notably worsened dyspnea. Objective: Physical Examination: General: awakens to questions, intermittently alert, oriented x 3, remains cooperative, seated upright in the ED bed, when awakened increased RR, appearance accessory muscle usage, mild distress noted. Skin: normal color, turgor, no icterus, cyanosis. HEENT: AT/NC, EOMI, PERRLA, dry MM, no carotid bruits, + JVD noted. Lungs: Diffusely diminished breath sounds, mild rhonchorous, expiratory wheezing diffusely, greater bilateral mid to upper, rales bases, accessory muscle usage, increased respiratory rate, mild distress when awakened. Heart: Mildly tachycardic with regular rhythm; no gallop, rub audible. Abdomen: soft, NTTP, ND, normal BS, no HSM. Extremities: no cyanosis, clubbing, or edema. Neurological: awakens to questions, intermittently alert, oriented x 3, remains cooperative; cognitive function not baseline intact; pupils equally reactive to light and accomodation; cranial nerves II-XII grossly normal, moving all 4 extremities, no focal deficits, strength severely globally decreased secondary to acute presentation. Psychiatric: affect appears fatigued, lethargic, no acute evidence of depressive or anxiety feelings. - Physical Exam Vital Signs Temp Pulse Resp BP Pulse Ox 96.7 F L 103 H 24 H 167/116 H 96 06/13/18 01:00 06/13/18 01:00 06/13/18 01:00 06/13/18 01:00 06/13/18 01:00 Oxygen Flow Rate (L/min) 2 Oxygen Delivery Method Nasal Cannula Weight: 205 lb Body Mass Index (BMI) 27.0 Finger Stick Blood Glucose 119 Microbiology Past 72 Hours 06/12/18 23:40 Influenza Types A,B Direct FA (FAREED) - Final Mucosa - Nose Laboratory Tests Past 24 Hrs 06/12/18 06/12/18 06/12/18 23:41 23:41 23:41 WBC 10.3 RBC 4.46 L Hgb 13.5 Hct 39.0 L MCV 87.4 MCH 30.3 MCHC 34.6 RDW 12.8 RDW Differential 40.1 Plt Count 248 MPV 9.7 Immature Gran % (Auto) 0.200 Neut % (Auto) 72.2 H Lymph % (Auto) 18.9 L Amelia % (Auto) 5.9 Eos % (Auto) 2.6 Baso % (Auto) 0.2 Absolute Neuts (auto) 7.4 Absolute Lymphs (auto) 1.94 Total Counted Not Reportable Sodium 135 L Potassium 4.0 Chloride 106 Carbon Dioxide 22.0 Anion Gap 7 BUN 12 Creatinine 0.79 Estim Creat Clear Calc 140.47 Est GFR (MDRD) Af Amer 140 Est GFR (MDRD) Non-Af 116 BUN/Creatinine Ratio 15.2 Glucose 373 H Lactic Acid 0.8 Calcium 7.8 L Assessment/Plan All Active Problems (Last Updated 05/30/18 @ 22:29 by Sofiya Ritchie MD) Acute exacerbation of CHF (congestive heart failure) (Acute) Asthma exacerbation (Acute) Acute respiratory failure with hypoxia (Acute) The patient is a 42 y/o M w/ PMHx: Chronic Systolic CHF/Ischemic Cardiomyopathy s/p AICD, CAD s/p PCI, HTN, HLD, Depression and Anxiety, Diabetes mellitus type II, Tobacco use, Polysubstance Abuse (cocaine, cannabis), Asthma who presents to the [facility] ED on 06/13/18 with history of recent discharge 05/31/18 following evaluation for asthma exacerbation secondary to RSV-B and rhinoviral infections w/ associated chest pain at that time with negative cardiac stress testing who now re-presents with 3-4 day history of recurrent productive cough, nausea, emesis with poor oral intake, loose stools, headache, muscle aches and joint aches. (1) Acute Hypoxic Respiratory failure, Multifactorial, secondary to Acute Decompensated Systolic CHF w/ Ischemic Cardiomyopathy and #2: ED work-up included T 97.1, heart rate 102, BP 131/90, respiratory rate 24, 98% on room air, CBC with WBC 10.3, heme globin 13.5, platelet 248 without market shift, BMP with sodium 135, glucose 373, lactic acid 0.8, BNP pending, rapid influenza negative, blood culture x2 pending per ED, chest x-ray with mild central pulmonary vascular congestion. Patient administered IV lasix in the ED, will admit to PCU, maintain on cardiac telemetry obtain cardiac enzyme series, obtain serial EKGs, continue IV lasix diuresis, monitor I/Os, maintain on intake restriction, continue medical therapy w/ asa, statin, BB, ARB, aldosterone antagonists. Will obtain TSH and magnesium level. Most recent ECHO noted 03/27/18 w/ severely dilated LV, severe segmental systolic dysfunction, EF 15%, mildly dilated RV, mild global RV systolic dysfunction, severely enlarged LA, mild MVI, mild to moderate TVI, mild focal AV thickening, trivial PVI, RVSP 73 mmHg consistent with severe pulmonary hypertension. Suspect presentation more secondary to #2; however, orthopneic, possibly not taking his diuretics, mild congested appearance on CXR. (2) Acute on chronic Asthma exacerbation likely secondary to #1 and recent #3, Possible concurrent GI associated symptoms: CXR w/ chronic changes, maintain on oxygen with wean as tolerated to room air, continue ATC duonebs, PRN albuterol, IV methylprednisolone, HOB, IS parameters, pending sputum cultures, negative rapid influenza with pending respiratory viral panel. Ideally, would want to hydrate patient given recent GI loss history; however, acute presentation with #1 as noted. (3) Recent URI, Bronchitis secondary to RSV-B and Rhinovirus w/ associated Asthma Exacerbation: Recent 05/31/18 discharge with pulmonary sxs at that time, chest discomfort w/ stress testing performed and evaluation per Cardiology at that time, will maintain on ATC duonebs and PRN albuterol, HOB, IS. (4) CAD: s/p [place], PCI, continue home regimen asa, plavix, statin, BB, ARB. 04/30/18 Cardiac catheterization with elevated LV end-diastolic pressure, segmented LV systolic dysfunction noted to be severe, EF 15%, al[place]q multivessel coronary disease with recommendation for risk factor modification, medical therapy and patient at that time referred for immediate PCI for progression of underlying RCA disease (5) Hypertension: Continue home regimen including IV Lasix as noted, Coreg, losartan, spironolactone, PRN hydralazine. (6) Hyperlipidemia: Continue home statin regimen. (7) Diabetes mellitus type II: Hold oral home regimen, continue home insulin regimen, ADA diet, accu checks w/ ISS. (8) Depression and Anxiety: Continue home sertraline regimen. (9) Polysubstance abuse history: Noted history of cannabis, cocaine, UDS pending. Most recent admission March 2018 with at that time cannabis and amphetamine positive UDS. (10) History of Tobacco use: Encouraged continued tobacco cessation. (11) DVT prophylaxis: SCD, Lovenox. Code Visit Inpatient E&M: 38575 Init Hosp L3
--- NOTE | 2018-06-13 02:46 | HP.PCM_ITS ---
Problem List (1) Acute exacerbation of CHF (congestive heart failure) Status: Acute Qualifiers: Heart failure type: systolic Qualified Code(s): I50.23 - Acute on chronic systolic (congestive) heart failure (2) Asthma exacerbation Status: Acute Qualifiers: Asthma persistence: unspecified (3) Acute respiratory failure with hypoxia Status: Acute (4) CAD (coronary artery disease) Status: Chronic Qualifiers: Coronary Disease-Associated Artery/Lesion type: unspecified vessel or lesion type [place] vs. transplanted heart: unspecified whether [place] or transplanted heart Associated angina: angina presence unspecified Qualified Code(s): I25.10 - Atherosclerotic heart disease of [place] coronary artery without angina pectoris (5) Polysubstance abuse Status: Chronic Comment: marijuana, cocaine (6) Presence of automatic implantable cardioverter-defibrillator Status: Chronic Comment: SICD per Dr Berry @ [facility] (7) Nicotine dependence Status: Chronic Qualifiers: Nicotine product type: cigarettes Substance use status: unspecified nicotine-induced disorder Qualified Code(s): F17.219 - Nicotine dependence, cigarettes, with unspecified nicotine-induced disorders (8) Hypertension Status: Chronic Qualifiers: Hypertension type: essential hypertension Qualified Code(s): I10 - Essential (primary) hypertension (9) Atherosclerosis of coronary artery of [place] heart without angina pectoris Status: Chronic Qualifiers: Coronary Disease-Associated Artery/Lesion type: unspecified vessel or lesion type Qualified Code(s): I25.10 - Atherosclerotic heart disease of [place] coronary artery without angina pectoris Comment: PCI-MEHRDAD-LAD 08/2014, [id number]-Mid CX and Prox-Mid RCA 03/18/15, Thrombosis of CX stent 03/25/15 (10) Ischemic cardiomyopathy Status: Chronic Comment: EF 20% per echo 08/08/2016 (11) Hyperlipidemia Status: Chronic Qualifiers: Hyperlipidemia type: pure hypercholesterolemia Qualified Code(s): E78.00 - Pure hypercholesterolemia, unspecified; E78.0 - Pure hypercholesterolemia (12) Type 2 diabetes mellitus Status: Chronic Qualifiers: Diabetes mellitus care home insulin use: with care home use Diabetes mellitus complication status: with unspecified complications Qualified Code(s): E11.8 - Type 2 diabetes mellitus with unspecified complications; Z79.4 - retirement (current) use of insulin (13) Chronic systolic CHF (congestive heart failure) Status: Chronic History of Present Illness Date of Admission: 06/13/18 Chief Complaint: Dyspnea, Cough, Wheezing, Arthralgia, Myalgia. The patient is a 42 y/o M w/ PMHx: Chronic Systolic CHF/Ischemic Cardiomyopathy s/p AICD, CAD s/p PCI, HTN, HLD, Depression and Anxiety, Diabetes mellitus type II, Tobacco use, Polysubstance Abuse (cocaine, cannabis), Asthma who presents to the [facility] ED on 06/13/18 with history of recent discharge 05/31/18 following evaluation for asthma exacerbation secondary to RSV-B and rhinoviral infections w/ associated chest pain at that time with negative cardiac stress testing who now re-presents with 3-4 day history of recurrent productive cough, nausea, emesis with poor oral intake, loose stools, headache, muscle aches and joint aches. He denies any recent weight gain or market lower extremity edema but notes severe orthopnea. An ex-girlfriend present notes he has been walking out in the cold, unsure if recent drug usage and notes has intermittently while feeling poorly taking his medications, she notes he has over the last 2 days but unsure prior. In the ED work-up included T 97.1, heart rate 102, BP 131/90, respiratory rate 24, 98% on room air, CBC with WBC 10.3, hemoglobin 13.5, platelet 248 without market shift, BMP with sodium 135, glucose 373, lactic acid 0.8, BNP pending, rapid influenza negative, blood culture x2 pending per ED, chest x-ray with mild central pulmonary vascular congestion. In the ED patient administered Ativan, IV Lasix 40 mg x1, DuoNeb's as well as solumedrol. Past Medical History Past Medical History (Chronic Problems): Chronic Problems (Last Updated 05/30/18 @ 22:29 by Sofiya Ritchie MD) CAD (coronary artery disease) (Chronic) Severe left ventricular systolic dysfunction (Chronic) Polysubstance abuse (Chronic) marijuana, cocaine 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/28/17) SICD per Dr Berry @ [facility] Nicotine dependence (Chronic) Old myocardial infarction (Chronic) Hypertension (Chronic) History of coronary artery stent placement (Chronic 04/30/18) PCI-MEHRDAD-LAD 08/2014, [id number]-Mid CX and Prox-Mid RCA 03/18/15, Thrombosis of CX stent 03/25/15. MEHRDAD to RCA (2.7 X 16 Promus Synergy) 04/30/2018 Atherosclerosis of coronary artery of [place] heart without angina pectoris (Chronic) PCI-MEHRDAD-LAD 08/2014, [id number]-Mid CX and Prox-Mid RCA 03/18/15, Thrombosis of CX stent 03/25/15 Ischemic cardiomyopathy (Chronic) EF 20% per echo 08/08/2016 Hyperlipidemia (Chronic) Type 2 diabetes mellitus (Chronic) Chronic systolic CHF (congestive heart failure) (Chronic) Medical History: Medical History (Last Updated 05/30/18 @ 22:29 by Sofiya Ritchie MD) Severe left ventricular systolic dysfunction (Chronic) I51.9 Polysubstance abuse (Chronic) F19.10 marijuana, cocaine Nicotine dependence (Chronic) F17.200 Old myocardial infarction (Chronic) I25.2 Hypertension (Chronic) I10 Atherosclerosis of coronary artery of [place] heart without angina pectoris (Chronic) I25.10 PCI-MEHRDAD-LAD 08/2014, [id number]-Mid CX and Prox-Mid RCA 03/18/15, Thrombosis of CX stent 03/25/15 Ischemic cardiomyopathy (Chronic) I25.5 EF 20% per echo 08/08/2016 Hyperlipidemia (Chronic) E78.5 Type 2 diabetes mellitus (Chronic) E11.9 Chronic systolic CHF (congestive heart failure) (Chronic) I50.22 Depression F32.9 Peripheral neuropathy G62.9 Allergies No Known Allergies Allergy (Verified 06/12/18 23:11) Home Medications: Ambulatory Orders Medication Instructions Recorded Insulin Glargine,Hum.rec.anlog 14 unit SQ DAILY 04/09/17 [Lu Fam U-100] Sertraline HCl [Zoloft] 50 mg PO DAILY #30 tab 05/13/18 carvedilol 6.25 mg tablet 6.25 mg PO BID #60 tab 05/14/18 clopidogrel 75 mg tablet 75 mg PO DAILY #30 tab 05/14/18 furosemide 80 mg tablet 80 mg PO BID #60 tab 05/14/18 losartan 25 mg tablet 25 mg PO DAILY #30 tab 05/14/18 magnesium oxide 400 mg (241.3 mg 400 mg PO DAILY #30 tab 01/14/19 magnesium) tablet nitroglycerin 0.4 mg sublingual 0.4 mg SUBLINGUAL Q5M PRN #25 tab 05/14/18 tablet potassium chloride ER 20 mEq 20 meq PO DAILY #30 tab 05/14/18 tablet,extended release spironolactone 25 mg tablet 25 mg PO DAILY #30 tab 05/14/18 Albuterol Inhaler [Ventolin Hfa] 1 - 2 puff INHALATION Q4H PRN PRN 05/26/18 #1 inhaler Aspirin E.C. [Ecotrin] 81 mg PO TID 05/26/18 Atorvastatin Calcium 40 mg PO DAILY 05/26/18 hydrOXYzine pamoate capsule 50 mg PO TID PRN PRN #30 capsule 05/26/18 [Vistaril pamoate capsule] Surgical History: Surgical History (Last Reviewed 05/14/18 @ 10:06 by Savanna Dave) 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) Onset Date: 06/28/[address] Berry @ [facility] History of coronary artery stent placement (Chronic) Onset Date: 04/30/18 Z95.5 PCI-MEHRDAD-LAD 08/2014, [id number]-Mid CX and Prox-Mid RCA 03/18/15, Thrombosis of CX stent 03/25/15. MEHRDAD to RCA (2.7 X 16 Promus Synergy) 04/30/2018 History of appendectomy Z90.49 Surgical History: - - Cardiac stent August 2014 Psychiatric History: Anxiety, Depression Lives: Spouse/ Significant Other Smoking Status: Current some day smoker Tobacco Use: Cigarettes Alcohol: None Drugs: Cocaine, Marijuana - *Family History Paternal Family History: Family History (Last Reviewed 05/14/18 @ 10:06 by Savanna Dave) Mother CAD (coronary artery disease) Diabetes Hypertension Myocardial infarction Father CAD (coronary artery disease) Diabetes Hypertension Myocardial infarction Brother Hypertension History Items: Diabetes, High Cholesterol, Heart Disease, Hypertension Maternal Family History: Family History (Last Reviewed 05/14/18 @ 10:06 by Savanna Dave) Mother CAD (coronary artery disease) Diabetes Hypertension Myocardial infarction Father CAD (coronary artery disease) Diabetes Hypertension Myocardial infarction Brother Hypertension History Items: Diabetes, High Cholesterol, Heart Disease, Hypertension Review of Systems Constitutional: Reports: Anorexia, Chills, Fever, Malaise, Weakness, Fatigue. Denies: Weight Change HEENT: Denies: Head Aches, Sinus Congestion, Sinus Drainage Cardiovascular: Denies: Chest Pain, Palpitations Respiratory: Reports: Cough, Shortness of Breath, Shortness of breath at rest, Shortness of breath upon exertion, Sputum production, Wheezing Gastrointestinal: Reports: Diarrhea, Nausea, Vomiting. Denies: Abdominal Pain Genitourinary: Denies: Dysuria Musculoskeletal: Reports: Joint Pain, Muscle pain. Denies: Joint Tenderness Skin: Denies: Rash, Wounds Neurological: Denies: Numbness, Tingling, Focal weakness Psychiatric: Reports: Anxiety, Depression. Denies: Homicidal Ideations, Suicidal Ideations Hematologic/ Lymphatic: Reports: Easy Bruising, Easy Bleeding. Denies: Anemia VTE Information - Inpt Only VTE Present on Admission: No VTE Mechan Device Prophylaxis: SCD's VTE Pharm Prophylaxis ordered?: Yes Patient Problems: Active and Suspected Problems (Last Updated 05/30/18 @ 22:29 by Sofiya Ritchie MD) Acute exacerbation of CHF (congestive heart failure) (Acute) Asthma exacerbation (Acute) Acute respiratory failure with hypoxia (Acute) Subjective: Seated upright in the ED bed, notes cannot lean back or notably worsened dyspnea. Objective: Physical Examination: General: awakens to questions, intermittently alert, oriented x 3, remains cooperative, seated upright in the ED bed, when awakened increased RR, appeara nce accessory muscle usage, mild distress noted. Skin: normal color, turgor, no icterus, cyanosis. HEENT: AT/NC, EOMI, PERRLA, dry MM, no carotid bruits, + JVD noted. Lungs: Diffusely diminished breath sounds, mild rhonchorous, expiratory wheezing diffusely, greater bilateral mid to upper, rales bases, accessory muscle usage, increased respiratory rate, mild distress when awakened. Heart: Mildly tachycardic with regular rhythm; no gallop, rub audible. Abdomen: soft, NTTP, ND, normal BS, no HSM. Extremities: no cyanosis, clubbing, or edema. Neurological: awakens to questions, intermittently alert, oriented x 3, remains cooperative; cognitive function not baseline intact; pupils equally reactive to light and accomodation; cranial nerves II-XII grossly normal, moving all 4 extremities, no focal deficits, strength severely globally decreased secondary to acute presentation. Psychiatric: affect appears fatigued, lethargic, no acute evidence of depressive or anxiety feelings. - Physical Exam Vital Signs Temp Pulse Resp BP Pulse Ox 96.7 F L 103 H 24 H 167/116 H 96 06/13/18 01:00 06/13/18 01:00 06/13/18 01:00 06/13/18 01:00 06/13/18 01:00 Oxygen Flow Rate (L/min) 2 Oxygen Delivery Method Nasal Cannula Weight: 205 lb Body Mass Index (BMI) 27.0 Finger Stick Blood Glucose 119 Microbiology Past 72 Hours 06/12/18 23:40 Influenza Types A,B Direct FA (FAREED) - Final Mucosa - Nose Laboratory Tests Past 24 Hrs 06/12/18 06/12/18 06/12/18 23:41 23:41 23:41 WBC 10.3 RBC 4.46 L Hgb 13.5 Hct 39.0 L MCV 87.4 MCH 30.3 MCHC 34.6 RDW 12.8 RDW Differential 40.1 Plt Count 248 MPV 9.7 Immature Gran % (Auto) 0.200 Neut % (Auto) 72.2 H Lymph % (Auto) 18.9 L [place] % (Auto) 5.9 Eos % (Auto) 2.6 Baso % (Auto) 0.2 Absolute Neuts (auto) 7.4 Absolute Lymphs (auto) 1.94 Total Counted Not Reportable Sodium 135 L Potassium 4.0 Chloride 106 Carbon Dioxide 22.0 Anion Gap 7 BUN 12 Creatinine 0.79 Estim Creat Clear Calc 140.47 Est GFR (MDRD) Af Amer 140 Est GFR (MDRD) Non-Af 116 BUN/Creatinine Ratio 15.2 Glucose 373 H Lactic Acid 0.8 Calcium 7.8 L Assessment/Plan All Active Problems (Last Updated 05/30/18 @ 22:29 by Sofiya Ritchie MD) Acute exacerbation of CHF (congestive heart failure) (Acute) Asthma exacerbation (Acute) Acute respiratory failure with hypoxia (Acute) The patient is a 42 y/o M w/ PMHx: Chronic Systolic CHF/Ischemic Cardiomyopathy s/p AICD, CAD s/p PCI, HTN, HLD, Depression and Anxiety, Diabetes mellitus type II, Tobacco use, Polysubstance Abuse (cocaine, cannabis), Asthma who presents to the [facility] ED on 06/13/18 with history of recent discharge 05/31/18 following evaluation for asthma exacerbation secondary to RSV-B and rhinoviral infections w/ associated chest pain at that time with negative cardiac stress testing who now re-presents with 3-4 day history of recurrent productive cough, nausea, emesis with poor oral intake, loose stools, headache, muscle aches and joint aches. (1) Acute Hypoxic Respiratory failure, Multifactorial, secondary to Acute Decompensated Systolic CHF w/ Ischemic Cardiomyopathy and #2: ED work-up included T 97.1, heart rate 102, BP 131/90, respiratory rate 24, 98% on room air, CBC with WBC 10.3, heme globin 13.5, platelet 248 without market shift, BMP with sodium 135, glucose 373, lactic acid 0.8, BNP pending, rapid influenza negative, blood culture x2 pending per ED, chest x-ray with mild central pulmonary vascular congestion. Patient administered IV lasix in the ED, will admit to PCU, maintain on cardiac telemetry obtain cardiac enzyme series, obtain serial EKGs, continue IV lasix diuresis, monitor I/Os, maintain on intake restriction, continue medical therapy w/ asa, statin, BB, ARB, aldosterone antagonists. Will obtain TSH and magnesium level. Most recent ECHO noted 03/27/18 w/ severely dilated LV, severe segmental systolic dysfunction, EF 15%, mildly dilated RV, mild global RV systolic dysfunction, severely enlarged LA, mild MVI, mild to moderate TVI, mild focal AV thickening, trivial PVI, RVSP 73 mmHg consistent with severe pulmonary hypertension. Suspect presentation more secondary to #2; however, orthopneic, possibly not taking his diuretics, mild congested appearance on CXR. (2) Acute on chronic Asthma exacerbation likely secondary to #1 and recent #3, Possible concurrent GI associated symptoms: CXR w/ chronic changes, maintain on oxygen with wean as tolerated to room air, continue ATC duonebs, PRN albuterol, IV methylprednisolone, HOB, IS parameters, pending sputum cultures, negative rapid influenza with pending respiratory viral panel. Ideally, would want to hydrate patient given recent GI loss history; however, acute presentation with #1 as noted. (3) Recent URI, Bronchitis secondary to RSV-B and Rhinovirus w/ associated Asthma Exacerbation: Recent 05/31/18 discharge with pulmonary sxs at that time, chest discomfort w/ stress testing performed and evaluation per Cardiology at that time, will maintain on ATC duonebs and PRN albuterol, HOB, IS. (4) CAD: s/p [place], PCI, continue home regimen asa, plavix, statin, BB, ARB. Cardiac catheterization with elevated LV end-diastolic pressure, segmented LV systolic dysfunction noted to be severe, EF 15%, [place] multivessel coronary disease with recommendation for risk factor modification, medical therapy and patient at that time referred for immediate PCI for progression of underlying RCA disease (5) Hypertension: Continue home regimen including IV Lasix as noted, Coreg, losartan, spironolactone, PRN hydralazine. (6) Hyperlipidemia: Continue home statin regimen. (7) Diabetes mellitus type II: Hold oral home regimen, continue home insulin regimen, ADA diet, accu checks w/ ISS. (8) Depression and Anxiety: Continue home sertraline regimen. (9) Polysubstance abuse history: Noted history of cannabis, cocaine, UDS pending. Most recent admission March 2018 with at that time cannabis and amphetamine positive UDS. (10) History of Tobacco use: Encouraged continued tobacco cessation. (11) DVT prophylaxis: SCD, Lovenox. Code Visit Inpatient E&M: 13436 Init Hosp L3
[2018-06-13] MEDS: Furosemide 40 MG/4 ML Vial IV (02:51)
[2018-06-13] MEDS: MethylPREDNISolone 125 MG/2 ML Vial IV (02:51)
[2018-06-13 02:56] LABS: BNP,B-Type NATRIURETIC PEPTIDE 1129.7 pg/mL (0-100)
[2018-06-13] MEDS: Ipratropium/Albuterol Sulfate 3 ML AMPUL.NEB INHALATION ×5 (03:55→19:02)
[2018-06-13 04:07] LABS: Amphetamine Urine VISTA NEGATIVE (<1000 ng/mL); Barbiturate Urine VISTA NEGATIVE (< 200 ng/mL); Benzodiazepine Urine VISTA NEGATIVE (< 200 ng/mL); Cocaine Urine VISTA NEGATIVE (< 300 ng/mL); Ecstacy Urine VISTA NEGATIVE (< 500 ng/mL); Methadone Urine VISTA NEGATIVE (< 300 ng/mL); PCP Urine VISTA NEGATIVE (< 25 ng/mL); THC Urine VISTA NEGATIVE (< 50 ng/mL); Vista UDS pH Range 6
[2018-06-13 04:26] LABS: Magnesium 1.8 mg/dL (1.6-2.6); Thyroid Stim Hormone (TSH) 1.76 uIU/mL (0.358-3.74)
--- NOTE | 2018-06-13 05:55 | EKG12_ITS ---
Test Reason : CP Blood Pressure : / mmHG Vent. Rate : 077 BPM Atrial Rate : 077 BPM P-R Int : 158 ms QRS Dur : 092 ms QT Int : 436 ms P-R-T Axes : 053 -72 059 degrees QTc Int : 493 ms Normal sinus rhythm Possible Left atrial enlargement Left anterior fascicular block Septal infarct , age undetermined Lateral infarct , age undetermined Abnormal ECG When compared with ECG of 13-JUN-2018 05:31, MANUAL COMPARISON REQUIRED, DATA IS UNCONFIRMED Confirmed by CHAR MCKEON, HAIM ([id number]), food editor EDELMIRA RIVAS ([id number]) on 06/15/2018 9:18:06 AM Referred By: SHIRA Confirmed By:HAIM PARDO MD
[2018-06-13] MEDS: Furosemide 100 MG/10 ML Vial 80 MG IV ×2 (06:52→14:27)
[2018-06-13] MEDS: 0.9% NaCl Peripheral Flush Adult/Peds IV ×2 (06:53→06:55)
[2018-06-13 06:55] LABS: Absolute Lymphocyte Count 0.79 X10^3/ul (0.83-4.51); Absolute Neutrophil Count 14.1 X10^3/uL (2.0-7.7); Basophil# 0.02 X10^3/uL; Basophil% 0.1 % (0-1); Eosinophil# 0.02 X10^3/uL; Eosinophils% 0.1 % (0-5); Hematocrit 42.7 % (40-54); Hemoglobin 14.4 g/dl (13.0-16.5); Lymphocyte # 0.79 X10^3/ul (4.0); Lymphocyte % 5.2 % (19-41); Mean Corp Hgb Conc 33.7 g/gl (32-36); Mean Corpuscular Hgb 29.4 pg (27.0-32.0); Mean Corpuscular Volume 87.1 fL (80-94); Mean Platelet Vol. 9.9 fl (6.2-12.0); Monocyte# 0.11 X10^3/uL; Monocyte% 0.7 % (0-10); Neutrophil # 14.12 X10^3/uL (2.7-7.7); Neutrophil % 93.6 % (47-70); Platelet Count 260 K/mm3 (150-450); RBC Distribution Width SD 40.5 fl (35.1-43.9); White Blood Count 15.1 K/mm3 (4.4-11.0)
--- NOTE | 2018-06-13 07:03 | ED.VISSUMM ---
- ER Visit Summary Date of Service: 06/13/18 Chief Complaint: Shortness of breath History of Present Illness: The patient is a 42 M who presents with 3-4 days of shortness of breath. He complains of chest pain cough sputum nausea vomiting diarrhea muscle aches joint aches headaches. He states that he had about 8 episodes of nonbloody nonbilious emesis over the last 3 days. He does have a history of cocaine use but denies any recent or current use. He was recently admitted for similar symptoms. He had a normal stress echocardiogram. He tested positive for RSV and rhinovirus. Physical Examination: Blood pressure 144/108 afebrile heart rate 97 respiratory rate 34 Patient has tachypnea with inspiratory and expiratory wheezing Heart regular rate and rhythm Moist mucous membranes Abdomen soft Alert Patient does appear anxious Test Results: EKG shows normal sinus rhythm at a rate of 90 with a left anterior fascicular block. Two-view chest x-ray shows moderate CHF. Rapid influenza is negative. Labs notable for glucose 373. Lactic acid 0.8. BNP pending at the time of admission. Emergency Department Course and Treatment: Patient was treated with albuterol and Atrovent aerosols. He was placed on oxygen. He was given IV Ativan as well. On reevaluation he is still tachypneic but maintaining oxygen saturation. He was given IV Lasix for CHF. He was also given IV Solu-Medrol. He was discussed with the hospitalist and admitted. Treatment Plan: [] Disposition: Admit Impression: CHF exacerbation This note was generated with [employer] dictation software. It may contain incorrect words, spelling, and punctuation that were not noted in review of the chart prior to signing ED Disposition - Plan for ED Patient: Disposition: Acute Care [facility]
[2018-06-13 07:07] LABS: POSITIVE COUNT NO; POSITIVE DIFFERENTIAL NO; POSITIVE MORPHOLOGY NO
[2018-06-13 07:10] LABS: Bedside Glucose 483 mg/dL (70-110)
[2018-06-13] MEDS: Insulin Lispro 100 UNIT/ML INSULN.PEN SC ×3 (07:11→18:05)
[2018-06-13 07:24] LABS: Anion Gap 11 (5-15); BUN 12 mg/dL (7-18); BUN/Creat Ratio 13.4 RATIO (10-20); Calcium,Total 8.6 mg/dL (8.5-10.1); Chloride 104 mmol/L (98-107); EST Glomerular Filtration Rate 100 mL/min (>60); Est Glom Filt Rate - Afr Amer 120 mL/min (>60); Estimated Creatinine Clearance 119.75 ml/min; Glucose 422 mg/dL (74-106); Potassium 4.4 mmol/L (3.5-5.1); Sodium Level 137 mmol/L (136-145)
[2018-06-13] MEDS: Aspirin E.C. 81 MG Tablet PO ×3 (09:05→18:04)
[2018-06-13] MEDS: Carvedilol 6.25 MG Tablet PO ×2 (09:05→18:04)
[2018-06-13] MEDS: Enoxaparin 40 MG/0.4 ML Syringe SC (09:06)
[2018-06-13] MEDS: Clopidogrel Bisulfate 75 MG Tablet PO (09:06)
[2018-06-13] MEDS: Sertraline 50 MG Tablet PO (09:06)
[2018-06-13] MEDS: Losartan Potassium 25 MG Tablet PO (09:06)
[2018-06-13] MEDS: Spironolactone 25 MG Tablet PO (09:06)
--- NOTE | 2018-06-13 10:26 | CASEMGMT ---
RN CM NOTE: To room to complete RN CM assessment. Pt very sleepy/drowsy. Would open eyes briefly but then falls back to sleep quickly. Unable to complete assessment. RN CM to attempt later when pt more awake. Diana BSN RN CM
--- NOTE | 2018-06-13 11:25 | CASEMGMT ---
ILEANA GUAJARDO EQUALIZING SAW OPERATOR CASANDRA to room to meet with patient for initial transition planning/care coordination assessment. ILEANA GUAJARDO introduced self and role at [facility]. Pt voices understanding and consents to assessment at this time. Pt resting in bed in no distress at this time. Sleepy/groggy--falls asleep quickly during assessment but then easily awakens and able to answer questions. Care providers, pharmacy, and demographics verified/updated at this time. PCP: Tyrel Specialists: Denies Preferred Pharmacy: [facility] [place] Insurance: [employer]. States does not know if he has a [facility] Specialist through [employer]. Prescription Benefit: Yes Living Will/HPOA: Pt does not currently have LW/HCPOA and declines info at this time. LNOK: Mother, Aunt Living Arrangements: Lives with his aunt Transportation: Pt states he does not drive. States either his mom or his aunt provides transportation. DME: [facility] independently. States has all the diabetic supplies I need. When inquired about home oxygen use, pt states he does not have his own oxygen at home but that he has Been using someone else's breathing thing at night, but states he has his own face thing. ILEANA GUAJARDO attempted to clarify if he is using someone else's oxygen or if it is a BIPAP/CPAP, pt stated, I don't know, it just helps me breath. Pt may need home oxygen qualification testing completed prior to discharge to determine if he qualifies for home O2. Pt states he also needs an inhaler, stating that he has used someone else's in the past but states he knows he shouldn't be doing that either. HHC/SNF: Has never been to a SNF or used HHC. Denies needs and no needs identified. Pt wishes to return home and states has no concerns with going home at time of discharge. Pt states he still currently smokes but does not drink ETOH. CM to follow for home oxygen needs and any further discharge planning/needs. Pt voices no further concerns/needs at this time. Advised pt to ask for CM if any further questions/concerns/needs arise. Voices understanding. PLAN: Home. Diana SERRANO RN, CM
[2018-06-13 12:01] LABS: Bedside Glucose 477 mg/dL (70-110)
[2018-06-13] MEDS: Insulin Lispro 100 UNIT/ML INSULN.PEN 20 UNIT SC ×2 (12:32→14:28)
[2018-06-13 13:55] LABS: Bedside Glucose > 500 mg/dL (70-110)
[2018-06-13 14:09] LABS: Glucose 582 mg/dL (74-106)
--- NOTE | 2018-06-13 14:18 | PCM.PROGNOTE ---
<Alfredo Gifford - Last Filed: 06/13/18 14:18> Patient Problems: Active and Suspected Problems (Last Updated 05/30/18 @ 22:29 by Sofiya Ritchie MD) Acute exacerbation of CHF (congestive heart failure) (Acute) Asthma exacerbation (Acute) Acute respiratory failure with hypoxia (Acute) Subjective: Pt difficult to rouse, but when awoken sits up quickly and begins talking. He reports that he is urinating frequently without difficulty. He has had significant reduction in SOB and swelling. He feels much improved. He has a rare nonproductive cough. No fever/chills. - Physical Exam General: Alert, Oriented x3, Cooperative HEENT: Atraumatic, PERRLA, EOMI, Normocephalic Neck: Supple, No JVD, Negative Carotid Bruits Lungs: Diminished Cardiovascular: Regular rate, No murmurs Abdomen: Bowel Sounds Present, Soft, Non Tender Extremities: No edema, Capillary Refill Less than 3 Seconds Skin: No rashes, No breakdown Musculoskeletal: No Tenderness to Palpation of Joints or Extremities Neurological: Cranial nerves II-XII grossly intact Psych/Mental Status: Normal Affect, Appropriate Vital Signs Temp Pulse Resp BP Pulse Ox 97.5 F L 94 16 126/81 H 98 06/13/18 09:03 06/13/18 11:13 06/13/18 11:13 06/13/18 09:03 06/13/18 11:13 Oxygen Flow Rate (L/min) 2 Oxygen Delivery Method Nasal Cannula Weight: 196 lb 13.965 oz Body Mass Index (BMI) 26.6 Finger Stick Blood Glucose 119 Intake and Output for Last 24 Hours 06/11/18 06/12/18 06/13/18 23:59 23:59 23:59 Intake Total 890 / 890 Output Total 4125 / 4125 Balance -3235 / -3235 Microbiology Past 72 Hours 06/13/18 03:55 Respiratory Panel (PCR) - Final Mucosa - Nasopharyngeal 06/12/18 23:40 Influenza Types A,B Direct FA (FAREED) - Final Mucosa - Nose Laboratory Tests Past 24 Hrs 06/12/18 06/12/18 06/12/18 23:41 23:41 23:41 WBC 10.3 RBC 4.46 L Hgb 13.5 Hct 39.0 L MCV 87.4 MCH 30.3 MCHC 34.6 RDW 12.8 RDW Differential 40.1 Plt Count 248 MPV 9.7 Immature Gran % (Auto) 0.200 Neut % (Auto) 72.2 H Lymph % (Auto) 18.[address] [place] % (Auto) 5.9 Eos % (Auto) 2.6 Baso % (Auto) 0.2 Absolute Neuts (auto) 7.4 Absolute Lymphs (auto) 1.94 Total Counted Not Reportable Sodium 135 L Potassium 4.0 Chloride 106 Carbon Dioxide 22.0 Anion Gap 7 BUN 12 Creatinine 0.79 Estim Creat Clear Calc 140.47 Est GFR (MDRD) Af Amer 140 Est GFR (MDRD) Non-Af 116 BUN/Creatinine Ratio 15.2 Glucose 373 H Lactic Acid 0.8 Calcium 7.8 L Magnesium Troponin I B-Natriuretic Peptide TSH Urine Opiates Screen Urine Methadone Screen Ur Barbiturates Screen Ur Phencyclidine Scrn Ur Amphetamines Screen U Methamphetamin-MDMA U Benzodiazepines Scrn Urine Cocaine Screen U Cannabinoids Screen Ur Drug Screen Comment 06/12/18 06/13/18 06/13/18 23:41 03:40 03:40 WBC RBC Hgb Hct MCV MCH MCHC RDW RDW Differential Plt Count MPV Immature Gran % (Auto) Neut % (Auto) Lymph % (Auto) [place] % (Auto) Eos % (Auto) Baso % (Auto) Absolute Neuts (auto) Absolute Lymphs (auto) Total Counted Sodium Potassium Chloride Carbon Dioxide Anion Gap BUN Creatinine Estim Creat Clear Calc Est GFR (MDRD) Af Amer Est GFR (MDRD) Non-Af BUN/Creatinine Ratio Glucose Lactic Acid Calcium Magnesium 1.8 Troponin I 0.030 B-Natriuretic Peptide 1129.7 H TSH 1.76 Urine Opiates Screen NEGATIVE Urine Methadone Screen NEGATIVE Ur Barbiturates Screen NEGATIVE Ur Phencyclidine Scrn NEGATIVE Ur Amphetamines Screen NEGATIVE U Methamphetamin-MDMA NEGATIVE U Benzodiazepines Scrn NEGATIVE Urine Cocaine Screen NEGATIVE U Cannabinoids Screen NEGATIVE Ur Drug Screen Comment 06/13/18 06/13/18 06/13/18 06:35 06:35 09:15 WBC 15.1 H RBC 4.90 Hgb 14.4 Hct 42.7 MCV 87.1 MCH 29.4 MCHC 33.7 RDW 13.0 RDW Differential 40.5 Plt Count 260 MPV 9.9 Immature Gran % (Auto) 0.300 Neut % (Auto) 93.6 H Lymph % (Auto) 5.[address] % (Auto) 0.7 Eos % (Auto) 0.1 Baso % (Auto) 0.1 Absolute Neuts (auto) 14.1 H Absolute Lymphs (auto) 0.79 L Total Counted Not Reportable Sodium 137 Potassium 4.4 Chloride 104 Carbon Dioxide 22.0 Anion Gap 11 BUN 12 Creatinine 0.90 Estim Creat Clear Calc 119.75 Est GFR (MDRD) Af Amer 120 Est GFR (MDRD) Non-Af 100 BUN/Creatinine Ratio 13.4 Glucose 422 H Lactic Acid Calcium 8.6 Magnesium Troponin I 0.028 < 0.015 B-Natriuretic Peptide TSH Urine Opiates Screen Urine Methadone Screen Ur Barbiturates Screen Ur Phencyclidine Scrn Ur Amphetamines Screen U Methamphetamin-MDMA U Benzodiazepines Scrn Urine Cocaine Screen U Cannabinoids Screen Ur Drug Screen Comment 06/13/18 13:45 WBC RBC Hgb Hct MCV MCH MCHC RDW RDW Differential Plt Count MPV Immature Gran % (Auto) Neut % (Auto) Lymph % (Auto) [place] % (Auto) Eos % (Auto) Baso % (Auto) Absolute Neuts (auto) Absolute Lymphs (auto) Total Counted Sodium Potassium Chloride Carbon Dioxide Anion Gap BUN Creatinine Estim Creat Clear Calc Est GFR (MDRD) Af Amer Est GFR (MDRD) Non-Af BUN/Creatinine Ratio Glucose 582 H* Lactic Acid Calcium Magnesium Troponin I B-Natriuretic Peptide TSH Urine Opiates Screen Urine Methadone Screen Ur Barbiturates Screen Ur Phencyclidine Scrn Ur Amphetamines Screen U Methamphetamin-MDMA U Benzodiazepines Scrn Urine Cocaine Screen U Cannabinoids Screen Ur Drug Screen Comment POC Glucose 06/13/18 06/13/18 06/13/18 13:31 11:45 07:02 POC Glucose > 500 H* 477 H* 483 H* Medical Necessity - Tobacco Use Smoking Status: Current some day smoker Tobacco Use: Cigarettes Assessment/Plan All Active Problems (Last Updated 05/30/18 @ 22:29 by Sofiya Ritchie MD) Acute exacerbation of CHF (congestive heart failure) (Acute) Asthma exacerbation (Acute) Acute respiratory failure with hypoxia (Acute) 1. Acute CHF exacerbation, systolic, with ischemic CM - continue lasix. Significant diuresis. Has AICD. CXR mod CHF. Repeat in AM. No hypoxia. 2. Asthma exacerbation - steroids, aerosols. Recent RSV infection. Resp panel negative now. 3. CAD recently here with negative stress. Trop neg. 4. Polysubstance abuse - marijuana, cocaine 5. Medication noncompliance - recurrent issue. D/w case management. 6. T2DM - uncontrolled 2/2 steroids - increased sliding scale. Added mealtime. Bolus given. 7. Ongoing tobacco abuse - patch if desired. 8. Other chronic issues stable. DVT ppx: lovenox DC planning: CM/SW consult as pt noncompliant and has frequent admissions lately. This patient was seen by Alfredo Gifford PA-C under the supervision of Doctor Jossue. <Brandy Marcum - Last Filed: 06/13/18 15:57> - Physical Exam Vital Signs Temp Pulse Resp BP Pulse Ox 98.4 F 91 16 130/72 H 96 06/13/18 14:31 06/13/18 14:31 06/13/18 14:31 06/13/18 14:31 06/13/18 14:31 Oxygen Flow Rate (L/min) 2 Oxygen Delivery Method Nasal Cannula Weight: 196 lb 13.965 oz Body Mass Index (BMI) 26.6 Finger Stick Blood Glucose 119 Intake and Output for Last 24 Hours 06/11/18 06/12/18 06/13/18 23:59 23:59 23:59 Intake Total 890 / 890 Output Total 4125 / 4125 Balance -3235 / -3235 Microbiology Past 72 Hours 06/13/18 03:55 Respiratory Panel (PCR) - Final Mucosa - Nasopharyngeal 06/12/18 23:40 Influenza Types A,B Direct FA (FAREED) - Final Mucosa - Nose Laboratory Tests Past 24 Hrs 06/12/18 06/12/18 06/12/18 23:41 23:41 23:41 WBC 10.3 RBC 4.46 L Hgb 13.5 Hct 39.0 L MCV 87.4 MCH 30.3 MCHC 34.6 RDW 12.8 RDW Differential 40.1 Plt Count 248 MPV 9.7 Immature Gran % (Auto) 0.200 Neut % (Auto) 72.2 H Lymph % (Auto) 18.[address] % (Auto) 5.9 Eos % (Auto) 2.6 Baso % (Auto) 0.2 Absolute Neuts (auto) 7.4 Absolute Lymphs (auto) 1.94 Total Counted Not Reportable Sodium 135 L Potassium 4.0 Chloride 106 Carbon Dioxide 22.0 Anion Gap 7 BUN 12 Creatinine 0.79 Estim Creat Clear Calc 140.47 Est GFR (MDRD) Af Amer 140 Est GFR (MDRD) Non-Af 116 BUN/Creatinine Ratio 15.2 Glucose 373 H Lactic Acid 0.8 Calcium 7.8 L Magnesium Troponin I B-Natriuretic Peptide TSH Urine Opiates Screen Urine Methadone Screen Ur Barbiturates Screen Ur Phencyclidine Scrn Ur Amphetamines Screen U Methamphetamin-MDMA U Benzodiazepines Scrn Urine Cocaine Screen U Cannabinoids Screen Ur Drug Screen Comment 06/12/18 06/13/18 06/13/18 23:41 03:40 03:40 WBC RBC Hgb Hct MCV MCH MCHC RDW RDW Differential Plt Count MPV Immature Gran % (Auto) Neut % (Auto) Lymph % (Auto) [place] % (Auto) Eos % (Auto) Baso % (Auto) Absolute Neuts (auto) Absolute Lymphs (auto) Total Counted Sodium Potassium Chloride Carbon Dioxide Anion Gap BUN Creatinine Estim Creat Clear Calc Est GFR (MDRD) Af Amer Est GFR (MDRD) Non-Af BUN/Creatinine Ratio Glucose Lactic Acid Calcium Magnesium 1.8 Troponin I 0.030 B-Natriuretic Peptide 1129.7 H TSH 1.76 Urine Opiates Screen NEGATIVE Urine Methadone Screen NEGATIVE Ur Barbiturates Screen NEGATIVE Ur Phencyclidine Scrn NEGATIVE Ur Amphetamines Screen NEGATIVE U Methamphetamin-MDMA NEGATIVE U Benzodiazepines Scrn NEGATIVE Urine Cocaine Screen NEGATIVE U Cannabinoids Screen NEGATIVE Ur Drug Screen Comment 06/13/18 06/13/18 06/13/18 06:35 06:35 09:15 WBC 15.1 H RBC 4.90 Hgb 14.4 Hct 42.7 MCV 87.1 MCH 29.4 MCHC 33.7 RDW 13.0 RDW Differential 40.5 Plt Count 260 MPV 9.9 Immature Gran % (Auto) 0.300 Neut % (Auto) 93.6 H Lymph % (Auto) 5.[address] % (Auto) 0.7 Eos % (Auto) 0.1 Baso % (Auto) 0.1 Absolute Neuts (auto) 14.1 H Absolute Lymphs (auto) 0.79 L Total Counted Not Reportable Sodium 137 Potassium 4.4 Chloride 104 Carbon Dioxide 22.0 Anion Gap 11 BUN 12 Creatinine 0.90 Estim Creat Clear Calc 119.75 Est GFR (MDRD) Af Amer 120 Est GFR (MDRD) Non-Af 100 BUN/Creatinine Ratio 13.4 Glucose 422 H Lactic Acid Calcium 8.6 Magnesium Troponin I 0.028 < 0.015 B-Natriuretic Peptide TSH Urine Opiates Screen Urine Methadone Screen Ur Barbiturates Screen Ur Phencyclidine Scrn Ur Amphetamines Screen U Methamphetamin-MDMA U Benzodiazepines Scrn Urine Cocaine Screen U Cannabinoids Screen Ur Drug Screen Comment 06/13/18 13:45 WBC RBC Hgb Hct MCV MCH MCHC RDW RDW Differential Plt Count MPV Immature Gran % (Auto) Neut % (Auto) Lymph % (Auto) [place] % (Auto) Eos % (Auto) Baso % (Auto) Absolute Neuts (auto) Absolute Lymphs (auto) Total Counted Sodium Potassium Chloride Carbon Dioxide Anion Gap BUN Creatinine Estim Creat Clear Calc Est GFR (MDRD) Af Amer Est GFR (MDRD) Non-Af BUN/Creatinine Ratio Glucose 582 H* Lactic Acid Calcium Magnesium Troponin I B-Natriuretic Peptide TSH Urine Opiates Screen Urine Methadone Screen Ur Barbiturates Screen Ur Phencyclidine Scrn Ur Amphetamines Screen U Methamphetamin-MDMA U Benzodiazepines Scrn Urine Cocaine Screen U Cannabinoids Screen Ur Drug Screen Comment POC Glucose 06/13/18 06/13/18 06/13/18 13:31 11:45 07:02 POC Glucose > 500 H* 477 H* 483 H* Assessment/Plan Patient seen by Alfredo Gifford PA-C under my supervision. Patient was admitted with a complaint of recurrent productive cough with assisted nausea and emesis as well as muscle aches, joint aches and vomiting. He also had and states severe orthopnea. Patient was recently admitted and managed for acute asthma exacerbation due to RSV and rhinovirus infections. He also had stress test done at that time for chest pain; stress test was negative. Influenza screen done during this admission was negative but BNP was elevated at 1100. Chest x-ray showed mild pulmonary vascular congestion. He has been managed for acute systolic CHF exacerbation. She is seen and examined. Shortness of breath had improved. Swelling in his lower extremities are also improved. Review of systems otherwise negative. Labs and vitals reviewed. Patient was on 2 L of oxygen and saturating well. o/e: Vital Signs Height 6 ft Weight: 196 lb 13.965 oz Weight in Pounds 196.9 lbs BMI 25.9 Pulse Ox 96 Temperature 98.4 F Pulse Rate 91 Respiratory Rate 16 Blood Pressure 130/72 Blood Pressure Position Supine - Physical Exam General: Alert, Oriented x3, Cooperative HEENT: Atraumatic, PERRLA, EOMI, Normocephalic Neck: Supple, No JVD, Negative Carotid Bruits Lungs: breath sounds mildly diminished bibasally, no wheezes or crackles Cardiovascular: Regular rate, No murmurs Abdomen: Bowel Sounds Present, Soft, Non Tender Extremities: No edema, Capillary Refill Less than 3 Seconds Skin: No rashes, No breakdown Musculoskeletal: No Tenderness to Palpation of Joints or Extremities Neurological: Cranial nerves II-XII grossly intact Psych/Mental Status: Normal Affect, Appropriate Plan is to continue with diuresis with IV lasix. continue breathing treatments. Titrate oxygen to maintain sats >90%. Stop IV solumedrol o.a of markedly elevated blood sugars. Rest of management as per Alfredo Gifford PA-C's note which I have reviewed and agree with. Code Visit Inpatient E&M: 74317 Subs Hosp L3
--- NOTE | 2018-06-13 14:39 | CASEMGMT ---
RN CM NOTE: Call placed to [employer] to inquire if pt has a Adult School Counselor. Pt does not currently have a Adult School Counselor. Spoke to Emilia Parag who is a CM with [employer] and she states she is able to come see pt tomorrow afternoon, 06/14/18. Emilia's provided her direct number, which is , in case she would need to be reached prior to coming in to see pt. Diana BIRDN RN CM
[2018-06-13] MEDS: Acetaminophen 325 MG Tablet 650 MG PO (16:09)
--- NOTE | 2018-06-13 16:50 | EKG12_ITS ---
Test Reason : MORNING EKG Blood Pressure : / mmHG Vent. 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
[2018-06-13] MEDS: Morphine 2 MG/ML Syringe 1 MG IV (16:58)
--- NOTE | 2018-06-13 17:03 | NURSING ---
Pt c/o epigastric, generalized chest pain and leg cramping. Also c/o SOB and diaphoresis. Blood glucose = 266. BP 103/60. Patient is calling out yelling that he needs something for pain, he needs morphine. Dr. Marcum notified. Ordered stat EKG, Troponin and x1 dose of morhpine 1mg IV. After patient received morphine he quickly relaxed and became drowsy and stated that the pain medication was working.
[2018-06-13 17:36] LABS: Bedside Glucose 266 mg/dL (70-110)
[2018-06-14] VITALS (8 sets, daily range): BP systolic 100–108; BP diastolic 54–70; PULSE 75–95; RESP 16–17; TEMP 36.7–36.8; O2SAT 93–98
[2018-06-14] MEDS: Atorvastatin Calcium 40 MG Tablet PO (00:02)
[2018-06-14] MEDS: Furosemide 100 MG/10 ML Vial 80 MG IV ×2 (00:02→05:40)
[2018-06-14] MEDS: Insulin Lispro 100 UNIT/ML INSULN.PEN SC ×5 (00:25→11:35)
[2018-06-14] MEDS: 0.9% NaCl Peripheral Flush Adult/Peds IV ×2 (00:26→05:42)
[2018-06-14 00:51] LABS: Bedside Glucose 244 mg/dL (70-110)
[2018-06-14 07:11] LABS: Bedside Glucose 407 mg/dL (70-110)
[2018-06-14 07:18] LABS: Anion Gap 7 (5-15); BUN 19 mg/dL (7-18); BUN/Creat Ratio 18.3 RATIO (10-20); Calcium,Total 8.4 mg/dL (8.5-10.1); Chloride 95 mmol/L (98-107); Creatinine, Serum 1.04 mg/dL (0.70-1.30); EST Glomerular Filtration Rate 84 mL/min (>60); Est Glom Filt Rate - Afr Amer 101 mL/min (>60); Estimated Creatinine Clearance 103.63 ml/min; Glucose 432 mg/dL (74-106); Potassium 3.7 mmol/L (3.5-5.1); Sodium Level 131 mmol/L (136-145)
--- NOTE | 2018-06-14 07:20 | RAD_ITS ---
STUDY: X-RAY CHEST REASON FOR EXAM: Male, 42 years old. Congestive heart failure. TECHNIQUE: PA and lateral views of the chest. COMPARISON: Comparison is made with prior examination dated June 13, 2018. FINDINGS: EKG electrodes are seen. External AICD device is once again seen. Since prior study, the CHF has improved. Mild residual atelectasis of the lung bases with blunting of both costophrenic angles slightly worse on the left side. There is borderline cardiomegaly. Normal mediastinum and kelly. Normal visualized pulmonary arteries. Normal visualized aortic arch and descending thoracic aorta. Normal visualized thoracic spine. Normal visualized ribs, clavicles, and shoulders. There is no demonstrated abnormality of the visualized soft tissue structures of the upper abdomen. RAD/Chest PA and Lateral IMPRESSION: The CHF has improved. Mild residual bibasilar atelectasis with blunting of both costophrenic angles slightly worse on the left side. Electronically Signed: Nishant Masterson MD at 15:31 EST , Service support ,
[2018-06-14] MEDS: Ipratropium/Albuterol Sulfate 3 ML AMPUL.NEB INHALATION ×2 (07:36→11:23)
[2018-06-14] MEDS: Carvedilol 6.25 MG Tablet PO (08:42)
[2018-06-14] MEDS: Aspirin E.C. 81 MG Tablet PO ×2 (08:42→11:36)
[2018-06-14] MEDS: Losartan Potassium 25 MG Tablet PO (10:21)
[2018-06-14] MEDS: Spironolactone 25 MG Tablet PO (10:21)
[2018-06-14] MEDS: Clopidogrel Bisulfate 75 MG Tablet PO (10:21)
[2018-06-14] MEDS: Sertraline 50 MG Tablet PO (10:21)
--- NOTE | 2018-06-14 12:00 | DCINST_ITS ---
- Discharge Diagnoses Current Active Problems: Current Active and Chronic Problems (Last Updated 05/30/18 @ 22:29 by Sofiya Ritchie MD) Acute exacerbation of CHF (congestive heart failure) (Acute) Asthma exacerbation (Acute) Acute respiratory failure with hypoxia (Acute) You will use the following diet at home:: Cardiac Your food should be the consistency of: Regular Your liquids should be the consistency of: Regular/Thin Discharge Activity: Return to Normal Activity Weight Bearing Status: Weight bearing as tolerated Call your doctor if you observe: Shortness of breath, Swelling in the ankles Instructions: Heart Failure: Warning Signs of a Flare-Up Allergies/Adverse Reactions: Allergies No Known Allergies Allergy (Verified 06/12/18 23:11) Medications to take at Discharge Insulin Glargine,Hum.rec.anlog [Basaglar Kwikpen U-100] 14 unit SQ DAILY 04/09/17 Sertraline HCl [Zoloft] 50 mg PO DAILY #30 tab 05/13/18 carvedilol 6.25 mg tablet 6.25 mg PO BID #60 tab 05/14/18 clopidogrel 75 mg tablet 75 mg PO DAILY #30 tab 05/14/18 furosemide 80 mg tablet 80 mg PO BID #60 tab 05/14/18 losartan 25 mg tablet 25 mg PO DAILY #30 tab 05/14/18 magnesium oxide 400 mg (241.3 mg magnesium) tablet 400 mg PO DAILY #30 tab 05/14/18 nitroglycerin 0.4 mg sublingual tablet 0.4 mg SUBLINGUAL Q5M PRN #25 tab 05/14/18 potassium chloride ER 20 mEq tablet,extended release 20 meq PO DAILY #30 tab 05/14/18 spironolactone 25 mg tablet 25 mg PO DAILY #30 tab 05/14/18 Albuterol Inhaler [Ventolin Hfa] 1 - 2 puff INHALATION Q4H PRN PRN #1 inhaler 05/26/18 Aspirin E.C. [Ecotrin] 81 mg PO TID 05/26/18 Atorvastatin Calcium 40 mg PO DAILY 05/26/18 hydrOXYzine pamoate capsule [Vistaril pamoate capsule] 50 mg PO TID PRN PRN #30 capsule 05/26/18 Albuterol IH (ProAir) [Proair Hfa] 1 - 2 puff INHALATION Q4H PRN PRN #1 inhaler 06/14/18 The following prescriptions were given: Albuterol IH (ProAir) [Proair Hfa] 1 - 2 puff INHALATION Q4H PRN PRN #1 inhaler PRN Reason: Sob &/Or Wheezing Primary Care Physician: Jesus Sarah [Primary Care Provider] - Please follow up with your Primary Care Physician in: one week Test Results: Test results from this visit will be discussed in further detail at your follow- up appointment, if applicable. Proposed Discharge Date: 06/14/18
--- NOTE | 2018-06-14 12:00 | PCM.DC.SUM ---
Discharge Date and Diagnosis Date of Admission: 06/13/18 Date of Discharge: 06/14/18 - Primary Discharge Diagnosis Active and Suspected Problems (Last Updated 05/30/18 @ 22:29 by Sofiya Ritchie MD) Acute exacerbation of CHF (congestive heart failure) (Acute) Asthma exacerbation (Acute) Acute respiratory failure with hypoxia (Acute) - Secondary Discharge Diagnosis Chronic Problems (Last Updated 05/30/18 @ 22:29 by Sofiya Ritchie MD) CAD (coronary artery disease) (Chronic) Severe left ventricular systolic dysfunction (Chronic) Polysubstance abuse (Chronic) marijuana, cocaine 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/28/17) SICD per Dr Berry @ [facility] Nicotine dependence (Chronic) Old myocardial infarction (Chronic) Hypertension (Chronic) History of coronary artery stent placement (Chronic 04/30/18) PCI-MEHRDAD-LAD 08/2014, XEL-UCA-Yztq-Mid CX and Prox-Mid RCA 03/18/15, Thrombosis of CX stent 03/25/15. MEHRDAD to RCA (2.7 X 16 Promus Synergy) 04/30/2018 Atherosclerosis of coronary artery of [place] heart without angina pectoris (Chronic) PCI-MEHRDAD-LAD 08/2014, NBC-ULT-Ruae-Mid CX and Prox-Mid RCA 03/18/15, Thrombosis of CX stent 03/25/15 Ischemic cardiomyopathy (Chronic) EF 20% per echo 08/08/2016 Hyperlipidemia (Chronic) Type 2 diabetes mellitus (Chronic) Chronic systolic CHF (congestive heart failure) (Chronic) Hospital Course and Treatment Imaging Results: 06/14/18 07:20 CXR [Chest PA and Lateral] [RAD] AM (NON MEDS) Diagnostic Data Chest X-Ray 06/14/18 07:20 IMPRESSION: The CHF has improved. Mild residual bibasilar atelectasis with blunting of both costophrenic angles slightly worse on the left side. Electronically Signed: Nishant Masterson MD at 15:31 EST , Service support , Operations: None Procedures: None Summary of Care Provided: Patient is a 42-year-old male with a past medical history of ischemic cardiomyopathy status post ICD placement, chronic systolic heart failure with EF of 15%, Hypertension, hyperlipidemia, anxiety and depression, type 2 diabetes mellitus, polysubstance abuse including cocaine and cannabis, and asthma. He was admitted with a complaint of productive recurrent cough, nausea and emesis as well as a headache and muscle aches and joint aches. He also had lower extremity edema and orthopnea. Rapid influenza screen was negative and chest x-ray showed mild central pulmonary vascular congestion. BNP was thousand 129.7 and troponins x3 were negative. He was admitted and managed for acute on chronic systolic heart failure. He was diuresed with IV Lasix and he was put on oxygen to titrate to maintain duration of 92%. Patient remained stable, and was titrated off of oxygen. His pulse ox on room air was 95% at rest and with ambulation was 93% therefore he did not qualify for oxygen. Patient remained stable. He had been a bit hyperglycemic during admission and this is likely due to steroids he was started on account of suspicion for asthma exacerbation on initial admission. Steroids were stopped and blood sugar control improved. He was discharged home on 06/14/2018. 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 He was discharged with a prescription for duoneb aerosols, albuterol inhaler and a nebulizer machine. Patient seen and examined prior to discharge. He had no complaints and felt well and wanted to be discharged home. He denied any fever chills, palpitations or dizziness, abdominal pain, diarrhea vomiting. Labs and vitals reviewed. Home medications reviewed and reconciled. o/e: Vital Signs Height 6 ft Weight: 195 lb 8.8 oz Weight in Pounds 195.6 lbs BMI 25.9 Pulse Ox [AMBULATING on Room 93 Air] Pulse Ox [At REST on Room Air] 95 Pulse Ox 93 Temperature 98.0 F Pulse Rate 87 Respiratory Rate 16 Blood Pressure 100/54 Blood Pressure Position Supine General: Alert, Oriented x3, Cooperative HEENT: Atraumatic, PERRLA, EOMI, Normocephalic Neck: Supple, No JVD, Negative Carotid Bruits Lungs: breath sounds mildly diminished bibasally, no wheezes or crackles Cardiovascular: Regular rate, No murmurs Abdomen: Bowel Sounds Present, Soft, Non Tender Extremities: No edema, Capillary Refill Less than 3 Seconds Skin: No rashes, No breakdown Musculoskeletal: No Tenderness to Palpation of Joints or Extremities Neurological: Cranial nerves II-XII grossly intact Psych/Mental Status: Normal Affect, Appropriate Plan as described above. - Physical Exam Vital Signs Temp Pulse Resp BP Pulse Ox 98.0 F 87 16 100/54 L 93 06/14/18 10:17 06/14/18 11:26 06/14/18 11:26 06/14/18 10:17 06/14/18 11:26 Oxygen Flow Rate (L/min) 2 Oxygen Delivery Method Room Air Weight: 195 lb 8.8 oz Body Mass Index (BMI) 26.6 Finger Stick Blood Glucose 119 Intake and Output for Last 24 Hours 06/12/18 06/13/18 06/14/18 23:59 23:59 23:59 Intake Total 890 / 890 Output Total 6950 / 6950 1500 / 1500 Balance -6060 / -6060 -1500 / -1500 Microbiology Past 72 Hours 06/13/18 03:55 Respiratory Panel (PCR) - Final Mucosa - Nasopharyngeal 06/12/18 23:40 Influenza Types A,B Direct FA (FAREED) - Final Mucosa - Nose Laboratory Tests Past 24 Hrs 06/13/18 06/13/18 06/14/18 13:45 17:40 06:35 Sodium 131 L Potassium 3.7 Chloride 95 L Carbon Dioxide 29.0 Anion Gap 7 BUN 19 H Creatinine 1.04 Estim Creat Clear Calc 103.63 Est GFR (MDRD) Af Amer 101 Est GFR (MDRD) Non-Af 84 BUN/Creatinine Ratio 18.3 Glucose 582 H* 432 H Calcium 8.4 L Troponin I < 0.015 POC Glucose 06/14/18 06/13/18 06/13/18 07:02 23:59 16:45 POC Glucose 407 H 244 H 266 H 06/13/18 06/13/18 13:31 11:45 POC Glucose > 500 H* 477 H* Discharge Diet: Low fat/ Low Cholesterol Discharge Activity: Return to Normal Activity Weight Bearing Status: Weight bearing as tolerated Call your doctor if you observe: Shortness of breath, Swelling in the ankles Home Medications: Medications to take at Discharge Insulin Glargine,Hum.rec.anlog [Basaglar Kwikpen U-100] 14 unit SQ DAILY 04/09/17 Sertraline HCl [Zoloft] 50 mg PO DAILY #30 tab 05/13/18 carvedilol 6.25 mg tablet 6.25 mg PO BID #60 tab 05/14/18 clopidogrel 75 mg tablet 75 mg PO DAILY #30 tab 05/14/18 furosemide 80 mg tablet 80 mg PO BID #60 tab 05/14/18 losartan 25 mg tablet 25 mg PO DAILY #30 tab 05/14/18 magnesium oxide 400 mg (241.3 mg magnesium) tablet 400 mg PO DAILY #30 tab 05/14/18 nitroglycerin 0.4 mg sublingual tablet 0.4 mg SUBLINGUAL Q5M PRN #25 tab 05/14/18 potassium chloride ER 20 mEq tablet,extended release 20 meq PO DAILY #30 tab 05/14/18 spironolactone 25 mg tablet 25 mg PO DAILY #30 tab 05/14/18 Albuterol Inhaler [Ventolin Hfa] 1 - 2 puff INHALATION Q4H PRN PRN #1 inhaler 05/26/18 Aspirin E.C. [Ecotrin] 81 mg PO TID 05/26/18 Atorvastatin Calcium 40 mg PO DAILY 05/26/18 hydrOXYzine pamoate capsule [Vistaril pamoate capsule] 50 mg PO TID PRN PRN #30 capsule 05/26/18 Albuterol Aerosols [Ventolin Aerosols] 2.5 mg INHALATION Q2H PRN PRN #30 vial.neb. 06/14/18 Albuterol IH (ProAir) [Proair Hfa] 1 - 2 puff INHALATION Q4H PRN PRN #1 inhaler 06/14/18 Following Prescrptions Were Given to Patient: Albuterol Aerosols [Ventolin Aerosols] 2.5 mg INHALATION Q2H PRN PRN #30 vial.neb. PRN Reason: dyspnea, wheezing Albuterol IH (ProAir) [Proair Hfa] 1 - 2 puff INHALATION Q4H PRN PRN #1 inhaler PRN Reason: Sob &/Or Wheezing Primary Care Physician: Jesus Sarah [Primary Care Provider] - Please follow up with your Primary Care Physician in: one week Patient Instructions: Heart Failure: Warning Signs of a Flare-Up Disposition: Home Minutes spent on discharge:: 40 Patient Condition:: Stable Medical Necessity - Tobacco Use Smoking Status: Current some day smoker Tobacco Use: Cigarettes Meaningful Use Info Meaningful Use Diagnoses (Choose all that apply): CHF - CHF KENNETH/ARB ordered at discharge?: Yes Documented LVEF (%): 15 Code Visit Inpatient E&M: 55871 Disch Hosp
--- NOTE | 2018-06-14 12:05 | CASEMGMT ---
ILEANA GUAJARDO NOTE: Received call from CASANDRA Nieto @ [place]. Emilia states she is Behavioral CM and that she has referred pt Rosita, a medical CM @ [place] [facility]. Rosita's direct # is: [phone]. ILEANA Quach made aware. Diana BIRDN ILEANA GUAJARDO
--- NOTE | 2018-06-14 12:17 | PCA ---
Attempted to make patient an apt with the PCP listed, Jesus Sarah, and office stated he was not a patient there. Asked patient who his PCP is an he still states Jesus Sarah. Provided patient with a list of area PCP to schedule an apt.
[2018-06-14 12:35] LABS: Bedside Glucose 386 mg/dL (70-110)
--- NOTE | 2018-06-15 15:30 | CASEMGMT ---
ILEANA GUAJARDO Discharge Follow-Up Phone Call. Lace:??13? Strata: 4 Discharge Date: 06-14-18 Adm Dx:?? Mild CHF Exac, Asthma Exac Attempted discharge follow-up phone call. No answer. Message left for pt to call FLIGHT MECHANICRowena TEJEDA CM, if he has any questions about discharge instructions, medications, or any other questions/concerns. Phone number provided. Diana SERRANO RN CM
--- NOTE | 2018-07-06 12:32 | NURSING ---
patient's called in and stated that patient received aerosol machine but that patient lost his paper prescription in his yellow folder and is having some difficulty breathing and would like to have one. This RN checked chart and saw that medication was ordered- called lacey and found that med was [facility]. Notified of same- denied further questions/ needs.
--- NOTE | 2018-07-06 13:04 | CASEMGMT ---
This ILEANA GUAJARDO received message that pt never 'got nebulizer meds delivered with his nebulizer.' Pt's aerosols were e-scribed to [facility]. Call to pt's contact number and message left for him regarding same at this time. [place] ILEANA GUAJARDO
== END 2018-06-14 14:36 | disposition home or self-care (01) | DRG 194 ==
LOC: ED 06-13 02:18 → PCU 06-13 03:04
PROVIDERS: Physician Assistant; Admitting Provider Family Medicine; Emergency Provider Emergency Medicine; Family Provider Internal Medicine; PCP Internal Medicine; Visit Provider Student in an Organized Health Care Education/Training Program
DX: I11.0 Hypertensive heart disease with heart failure (principal); I50.23 Acute on chronic systolic (congestive) heart failure; J96.01 Acute respiratory failure with hypoxia; E78.5 Hyperlipidemia, unspecified; I25.10 Atherosclerotic heart disease of native coronary artery without angina pectoris; E11.9 Type 2 diabetes mellitus without complications; J45.901 Unspecified asthma with (acute) exacerbation; F14.10 Cocaine abuse, uncomplicated; F12.10 Cannabis abuse, uncomplicated; I25.5 Ischemic cardiomyopathy; I25.2 Old myocardial infarction; Z79.4 Long term (current) use of insulin; Z79.899 Other long term (current) drug therapy; Z95.810 Presence of automatic (implantable) cardiac defibrillator; Z95.5 Presence of coronary angioplasty implant and graft; F17.210 Nicotine dependence, cigarettes, uncomplicated
CPT/HCPCS: 36415; 71046; 80048; 80307; 82947; 82962; 83605; 83735; 83880; 84443; 84484; 85025; 87040; 87633; 87804; 93005; 94640; 97802; 99251; 99283; 99406; J7030; A4216; G0463; J1940

== ENCOUNTER 2018-06-26 14:09 | Emergency (ER) | payer MEDICAID, SELFPAY ==
[2018-04-30 13:15] VITALS: BMI 25.9
[2018-06-13 03:35] VITALS: BMI 26.6
[2018-06-26 14:10] VITALS: BP 122/93; PULSE 125; RESP 22; TEMP 36.6; O2SAT 95; BMI 25.7
[2018-06-26 14:43] VITALS: O2SAT 95
--- NOTE | 2018-06-26 15:02 | EKG12_ITS ---
Test Reason : AB NORMAL RYTH Blood Pressure : / mmHG Vent. Rate : 115 BPM Atrial Rate : 115 BPM P-R Int : 148 ms QRS Dur : 090 ms QT Int : 334 ms P-R-T Axes : 061 -66 086 degrees QTc Int : 462 ms Sinus tachycardia Possible Left atrial enlargement Left anterior fascicular block Anteroseptal infarct (cited on or before 05-DEC-2014) Abnormal ECG Confirmed by CHAR MCKEON, HAIM ([id number]), dictionary editor KEESHA DURÁN ([id number]) on 06/28/2018 3:51:47 PM Referred By: RICKY
[2018-06-26 15:21] LABS: Bedside Glucose 359 mg/dL (70-110)
[2018-06-26 15:31] LABS: Absolute Lymphocyte Count 0.84 X10^3/ul (0.83-4.51); Basophil# 0.02 X10^3/uL; Basophil% 0.2 % (0-1); Eosinophil# 0.03 X10^3/uL; Eosinophils% 0.4 % (0-5); Hematocrit 41.1 % (40-54); Hemoglobin 14.2 g/dl (13.0-16.5); Lymphocyte # 0.84 X10^3/ul (4.0); Mean Corp Hgb Conc 34.5 g/gl (32-36); Mean Corpuscular Hgb 30.3 pg (27.0-32.0); Mean Corpuscular Volume 87.6 fL (80-94); Mean Platelet Vol. 10.5 fl (6.2-12.0); Monocyte# 0.49 X10^3/uL; Monocyte% 5.8 % (0-10); Neutrophil % 83.4 % (47-70); Platelet Count 186 K/mm3 (150-450); RBC Distribution Width CV 13.2 % (11.6-14.6); RBC Distribution Width SD 40.3 fl (35.1-43.9); Red Blood Count 4.69 M/mm3 (4.6-6.2); White Blood Count 8.4 K/mm3 (4.4-11.0)
--- NOTE | 2018-06-26 15:37 | ED.VIS.GEN ---
History of Present Illness Chief Complaint: Shortness of Breath Detail of Chief Complaint: Patient reports shortness of breath and respiratory symptoms as well as sym Informant: Patient Onset: Days Context: - - Patient acknowledges he has not been compliant with his medication. He also acknowledges that he recently snorted cocaine. Timing: Continuous Quality: URI symptoms, shortness of breath, rapid heartbeat and polyuria Location: Not applicable Current Severity: Moderate Maximum Severity: Severe Worsened by: Noncompliance and illicit drug use Relieved by: Nothing Associated Symptoms: See narrative Narrative: Patient 42-year-old male with multiple medical problems who presents with URI symptoms which include runny nose, congestion, postnasal drainage, cough that is nonproductive, dyspnea, dyspnea on exertion, chest discomfort and palpitations. He also admits to polyuria, polydipsia, and nocturia. He denies any skin lesions. He denies headache. He denies double vision or loss of vision. He denies ringing in his ears, decreased hearing or ear pain. He denies hemoptysis. The chest discomfort is nondescript and not positional or related to food. He does complain of increased shortness of breath with activity. He denies leg pain, swelling or discoloration. He denies history of PE or DVT. He states he is on no anticoagulant. Prior similar symptoms: Yes Recent Illness/Hospitalization: Yes Past Medical History - Allergies and Home Meds Allergies/Adverse Reactions: Allergies No Known Allergies Allergy (Verified 06/26/18 14:12) Primary Care Physician: Jesus Sarah [Primary Care Provider] - Prior records reviewed: Yes Past Medical History: - - Past medical history coronary disease, SD, CHF, hypertension, hypercholesterolemia asthma and polysubstance abuse and illicit drug use. He does have an automatic cardiac internal defibrillator. Surgical History: - - Cardiac stent August 2014 Lives: Alone Smoking Status: Current every day smoker Drugs: Cocaine - Family History Paternal Family History: Family History (Last Reviewed 05/14/18 @ 10:06 by Savanna Dave) Mother CAD (coronary artery disease) Diabetes Hypertension Myocardial infarction Father CAD (coronary artery disease) Diabetes Hypertension Myocardial infarction Brother Hypertension Family History: Reports: Diabetes, High Cholesterol, Heart Disease, Hypertension Maternal Family History: Family History (Last Reviewed 05/14/18 @ 10:06 by Savanna Dave) Mother CAD (coronary artery disease) Diabetes Hypertension Myocardial infarction Father CAD (coronary artery disease) Diabetes Hypertension Myocardial infarction Brother Hypertension Family History: Reports: Diabetes, High Cholesterol, Heart Disease, Hypertension Review of Systems General: Reports: Chills, Fever, Malaise, Subjective, Sweats. Denies: Weight loss Eyes: Reports: Visual changes - bilaterally, Blurred Vision - bilaterally. Denies: Diplopia ENT: Reports: Rhinorrhea. Denies: Bilateral ear pain, Left ear pain, Right ear pain, Sore throat Cardiovascular: Reports: Chest pain, Palpitations Respiratory: Reports: Dyspnea, Cough, Dyspnea on exertion. Denies: Sputum, Orthopnea, Paroxysmal nocturnal dyspnea Gastrointestinal: Denies: Abdominal pain, Nausea, Vomiting, Diarrhea, Melena, Hematochezia Genitourinary: Reports: Frequency. Denies: Dysuria, Hematuria Musculoskeletal: Denies: Myalgias, Arthralgias, Neck pain, Back pain, Swelling, Extremity Pain Skin: Denies: Rash, Wounds Neurological: Reports: Weakness, Parasthesia. Denies: Headache, Numbness Endocrine: Reports: Polyuria, Polydipsia. Denies: Cold intolerance Hematologic: Denies: Easy bruising, Easy bleeding Allergy: Denies: Uticaria Physical Exam Vital Signs/Narrative: Vital Signs Temp Pulse Resp BP Pulse Ox 06/26/18 14:10 97.9 F 125 H 22 H 122/93 H 95 Inital Vital Signs reviewed: Yes General: Well nourished, Well developed, No Acute Distress Eyes: Perrl, EOMI ENT: Dry mucous membranes, Nasal congestion. Negative for: Sinus tenderness Neck: Supple, Nontender, No lymphadenopathy, No JVD Cardiovascular: Regular rhythm, No murmurs, Normal S1, Normal S2, Tachycardia Respiratory: CTA bilaterally, Chest nontender. Negative for: Rales, Rhonchi, Wheezing Abdomen: Soft, Nontender, Nondistended, Normal bowel sounds, No masses Rectal: Deferred Back: Nontender Extremities: Nontender, No edema. Negative for: Calf Tenderness Skin: Normal color, Rash - Patient has dry skin.. Negative for: Cyanosis, Jaundice Neurological: Alert, Oriented x3, Cranial nerves II-XII grossly intact, Normal Strength, Normal Sensation, Normal DTR Psychological: Normal affect Diagnostic/Tx/Re-eval CBC is unremarkable. Basic mental panel reveals blood sugar of 343 with a sodium of 131, which represents pseudohyponatremia. Troponin is normal. Tox is positive for amphetamines, cocaine and marijuana. Patient was confronted again he has used more recently than he initially admitted to. This would be explanation for his tachycardia. - Rhythm Strip Rhythm Strip: Sinus Rhythm Rate: 126 Ectopy: None - EKG Initial EKG Interpretation: Sinus Rhythm - Ventricular rate is 115. Decreased anterior force consistent with possible prior anterior septal SD. Evidence of a left anterior fascicular block. [place] interval is normal. QRS duration slightly prolonged. [place] is the left. There is no acute ischemic changes noted. - Medical Decision Making In light of patient's multiple medical problems noncompliant with medication abnormal vital signs and complaint of chest pain as well as polyuria, polydipsia nocturia will obtain EKG to look for cardiac ischemia. Troponin to determine if he has had a cardiac event especially since he is recently used cocaine. Drug screen was obtained to determine if he has used any other drugs other than what he is willing to admit which she was reluctant to. CBC was obtained to assess white count as well as H&H. Electrode panel was obtained and to specifically evaluate CO2, anion gap, blood sugar. Also to assess renal function since patient is a noncompliant diabetic with multiple medical problems. Since patient had pain for multiple hours in onset started yesterday with a normal troponin believe his chest pain is secondary to illicit drug use and would explain his tachycardia. Plan is to discharge to home. ED Disposition - Plan for ED Patient: Disposition: Home or Assisted Living Diagnosis: Chest pain in adult, Sinus tachycardia by electrocardiogram, Cocaine abuse with intoxication and without complication, Hyperglycemia due to type 1 diabetes mellitus, Amphetamine intoxication without complication Instructions: ED Crack Abuse, ED Drug Abuse General, ED Chest Pain Atypical Unkn Cause, ED Hyperglycemia Diabetic Referrals: Jesus Sarah [Primary Care Provider] - 3-5 Days
--- NOTE | 2018-06-26 15:40 | RAD_ITS ---
STUDY: X-RAY CHEST REASON FOR EXAM: Male, 42 years old. Dyspnea. Cough and wheezing. TECHNIQUE: PA and lateral views of the chest. COMPARISON: Comparison is made with prior examination dated June 14, 2018. FINDINGS: EKG electrodes are seen. An external AICD device is once again seen. The lungs are clear and expanded. There is no demonstrated pleural abnormality. There is borderline cardiomegaly. Normal mediastinum and kelly. Normal visualized pulmonary arteries. Normal visualized aortic arch and descending thoracic aorta. Normal visualized thoracic spine. Normal visualized ribs, clavicles, and shoulders. There is no demonstrated abnormality of the visualized soft tissue structures of the upper abdomen. RAD/Chest PA and Lateral IMPRESSION: No acute abnormality is seen. Electronically Signed: Nishant Masterson, at 15:55 EST , Service support ,
[2018-06-26 15:55] LABS: POSITIVE COUNT NO; POSITIVE DIFFERENTIAL NO; POSITIVE MORPHOLOGY NO
[2018-06-26 15:58] LABS: Amphetamine Urine VISTA POSITIVE (<1000 ng/mL); Barbiturate Urine VISTA NEGATIVE (< 200 ng/mL); Benzodiazepine Urine VISTA NEGATIVE (< 200 ng/mL); Cocaine Urine VISTA POSITIVE (< 300 ng/mL); Ecstacy Urine VISTA NEGATIVE (< 500 ng/mL); Methadone Urine VISTA NEGATIVE (< 300 ng/mL); PCP Urine VISTA NEGATIVE (< 25 ng/mL); THC Urine VISTA POSITIVE (< 50 ng/mL); Vista UDS pH Range 5
[2018-06-26 16:41] VITALS: BP 123/89; PULSE 127; RESP 16; O2SAT 98
[2018-06-26 16:48] LABS: Anion Gap 7 (5-15); BUN 9 mg/dL (7-18); BUN/Creat Ratio 8.3 RATIO (10-20); Calcium,Total 7.9 mg/dL (8.5-10.1); Chloride 100 mmol/L (98-107); Creatinine, Serum 1.08 mg/dL (0.70-1.30); EST Glomerular Filtration Rate 80 mL/min (>60); Est Glom Filt Rate - Afr Amer 97 mL/min (>60); Estimated Creatinine Clearance 99.79 ml/min; Glucose 343 mg/dL (74-106); Potassium 4.4 mmol/L (3.5-5.1); Sodium Level 131 mmol/L (136-145)
[2018-06-26] MEDS: Insulin Lispro 100 UNIT/ML INSULN.PEN SC (18:25)
[2018-06-26 18:27] VITALS: BP 124/98; PULSE 111; RESP 23; O2SAT 98
[2018-06-26 20:40] VITALS: BP 123/86; PULSE 101; RESP 23; O2SAT 93
[2018-06-26 20:54] VITALS: BP 134/88; PULSE 104; RESP 20; O2SAT 97
--- NOTE | 2018-06-26 20:55 | ED.RN ---
THIS NURSE REVIEWED D/C INSTRUCTIONS WITH PT. PT VERBALIZED UNDERSTANDING OF INSTRUCTIONS. IV D/C. IV CATHETER INTACT. PT TOLERATED WELL. PT DENIES FURTHER NEEDS OR QUESTIONS AT THIS TIME
[2018-06-26 21:06] LABS: Bedside Glucose 356 mg/dL (70-110)
[2018-06-26] MEDS: Insulin Lispro 100 UNIT/ML INSULN.PEN 7 UNIT SC (21:09)
== END 2018-06-26 21:09 | disposition home or self-care (01) ==
PROVIDERS: Emergency Provider Emergency Medicine; Family Provider Internal Medicine; PCP Internal Medicine
DX: R07.9 Chest pain, unspecified (principal); R00.0 Tachycardia, unspecified; E10.65 Type 1 diabetes mellitus with hyperglycemia; F14.129 Cocaine abuse with intoxication, unspecified; F15.129 Other stimulant abuse with intoxication, unspecified; Z91.14 Patient's other noncompliance with medication regimen; F17.200 Nicotine dependence, unspecified, uncomplicated; I25.2 Old myocardial infarction; E78.00 Pure hypercholesterolemia, unspecified; J45.909 Unspecified asthma, uncomplicated; I11.0 Hypertensive heart disease with heart failure; I50.9 Heart failure, unspecified; Z95.810 Presence of automatic (implantable) cardiac defibrillator; Z79.51 Long term (current) use of inhaled steroids; Z79.82 Long term (current) use of aspirin; Z79.4 Long term (current) use of insulin; Z79.899 Other long term (current) drug therapy
CPT/HCPCS: 71046; 80048; 80307; 82962; 84484; 85025; 93005; 99283; A4216

== ENCOUNTER 2018-07-06 18:05 | Observation (INO) | payer MEDICAID, SELFPAY ==
[2018-04-30 13:15] VITALS: BMI 25.9
[2018-07-06] VITALS (10 sets, daily range): BP systolic 130–162; BP diastolic 98–117; PULSE 100–114; RESP 16–29; TEMP 36.6–37.2; O2SAT 92–100; BMI 27.8; BMI 26.5
--- NOTE | 2018-07-06 18:08 | EKG12_ITS ---
Test Reason : SOB Blood Pressure : / mmHG Vent. Rate : 102 BPM Atrial Rate : 102 BPM P-R Int : 156 ms QRS Dur : 092 ms QT Int : 358 ms P-R-T Axes : 048 -60 087 degrees QTc Int : 466 ms Sinus tachycardia Possible Left atrial enlargement Left anterior fascicular block Anteroseptal infarct , age undetermined Abnormal ECG Confirmed by CHAR MCKEON, HAIM ([id number]), business editor EDELMIRA RIVAS ([id number]) on 07/10/2018 9:18:52 AM Referred By: SHAJI/EMILI Confirmed By:HAIM PARDO MD
--- NOTE | 2018-07-06 18:50 | RAD_ITS ---
STUDY: X-RAY CHEST REASON FOR EXAM: Male, 42 years old. Shortness of breath TECHNIQUE: Single frontal view COMPARISON: June 26, 2018 FINDINGS: The lungs are clear and expanded. There is no demonstrated pleural abnormality. Stable cardiomegaly with external pacer Normal mediastinum and kelly. Normal visualized pulmonary arteries. Normal visualized aortic arch and descending thoracic aorta. Normal visualized thoracic spine. Normal visualized ribs, clavicles, and shoulders. There is no demonstrated abnormality of the visualized soft tissue structures of the upper abdomen. RAD/Chest 1 View (Portable) IMPRESSION: Cardiomegaly. Electronically Signed: Osmar Peck DO at 19:22 EST Tel [phone], Service support ,
[2018-07-06] MEDS: MethylPREDNISolone 125 MG/2 ML Vial IV (19:00)
[2018-07-06] MEDS: Ipratropium/Albuterol Sulfate 3 ML AMPUL.NEB INHALATION (19:06)
[2018-07-06 19:40] LABS: ALB/GLOB Ratio 0.8 RATIO (0.9-2.4); AST(SGOT) 35 U/L (15-37); Alanine Aminotransfer ALT/SGPT 54 U/L (16-61); Albumin, Serum 2.5 g/dL (3.2-5.0); Alkaline Phosphatase 102 U/L (45-117); Anion Gap 9 (5-15); BUN 13 mg/dL (7-18); BUN/Creat Ratio 13.4 RATIO (10-20); Chloride 102 mmol/L (98-107); Creatinine, Serum 0.97 mg/dL (0.70-1.30); EST Glomerular Filtration Rate 91 mL/min (>60); Est Glom Filt Rate - Afr Amer 110 mL/min (>60); Estimated Creatinine Clearance 111.11 ml/min; Globulin 3.2 g/dL (2.2-4.2); Glucose 366 mg/dL (74-106); Potassium 4.1 mmol/L (3.5-5.1); Protein, Total 5.7 g/dL (6.4-8.2); Sodium Level 134 mmol/L (136-145)
[2018-07-06 19:50] LABS: Hemoglobin 12.9 g/dl (13.0-16.5); Mean Corp Hgb Conc 33.1 g/gl (32-36); Mean Corpuscular Hgb 29.3 pg (27.0-32.0); Mean Corpuscular Volume 88.6 fL (80-94); Mean Platelet Vol. 9.7 fl (6.2-12.0); Platelet Count 257 K/mm3 (150-450); RBC Distribution Width CV 13.8 % (11.6-14.6); RBC Distribution Width SD 45.1 fl (35.1-43.9)
[2018-07-06 19:51] LABS: Scan Indicated on CBC? Y/N NO
[2018-07-06 19:54] LABS: Prothrombin Time (Protime)PT. 12.5 SECONDS (11.7-14.9)
[2018-07-06 19:55] LABS: Partial Thromboplast Time 25.8 Seconds (24.1-36.2)
[2018-07-06 20:23] LABS: Lactic Acid 1.1 mmol/L (0.4-2.0)
--- NOTE | 2018-07-06 20:26 | ED.VISSUMM ---
- ER Visit Summary Date of Service: 07/06/18 Chief Complaint: [Shortness of breath] History of Present Illness: The patient is a 42 M [presents to the emergency department complaint of shortness of breath that started 2 days ago. Patient had a cough with some yellow sputum production. Patient had subjective fever and chills. He has some chest discomfort but with cough only. He has been or around some individuals who have also had cough and upper respiratory illnesses. He denies recent travel or surgery. Patient has a history of cardiomyopathy as well as asthma, CHF, and COPD.] Physical Examination: [HEENT-PERRLA, EOMI. Cranial nerves II through XII grossly intact. TMs clear. Mucous membranes moist. No adenopathy. Cardiovascular-regular rate and rhythm without murmur or ectopy Lungs-diminished breath sounds bilaterally. Patient has expiratory wheezes bilaterally. Patient is tachypneic. No accessory muscle use or retractions. Abdomen-normoactive bowel sounds, soft, nontender, no rebound or rigidity, no peritoneal signs. Extremities-intact ?4, normal range of motion, normal pulses, atraumatic] Test Results: [EKG obtained arrival shows sinus rhythm and was tachycardic with a ventricular rate of 102 bpm. Patient had left anterior fascicular block and an old anterior septal infarct noted. CBC with differential to 10,000, hemoglobin 12.9, hematocrit 39, placed 257. Chemistries unremarkable. Glucose was 366. LFTs were normal. Troponin was normal. Influenza screen was negative. Chest x-ray showed cardiomegaly otherwise nothing acute.] Emergency Department Course and Treatment: [Patient was given a DuoNeb aerosol and started on Solu-Medrol 125 mg IV. Patient was started on Levaquin 750 mg IV.] Patient continues to wheeze and feel dyspneic at rest. Treatment Plan: [Admit] Disposition: [Admit] Impression: [COPD exacerbation] This note was generated with [employer] dictation software. It may contain incorrect words, spelling, and punctuation that were not noted in review of the chart prior to signing ED Disposition - Plan for ED Patient: Referrals: Jesus Sarah [Primary Care Provider] -
--- NOTE | 2018-07-06 20:57 | NURSING ---
THIS RN AND AMPOULE INSPECTOR ATTEMPTED TO OBTAIN HOME MED LIST FROM PT BUT PT DOES NOT STAY AWAKE LONG ENOUGH TO RECALL NOR DOES HE REMEMBER THE DOSAGE
--- NOTE | 2018-07-06 21:01 | HP.PCM_ITS ---
Problem List (1) Acute exacerbation of CHF (congestive heart failure) Status: Acute Qualifiers: Heart failure type: systolic Qualified Code(s): I50.23 - Acute on chronic systolic (congestive) heart failure History of Present Illness Date of Admission: 07/06/18 Chief Complaint: shortness of breath The patient is a 42 year old M with a significant history of tobacco abuse; CAD s/p stent; HTN; polysubstance abuse; diabetes heart failure and ischemic cardiomyopathy who presented with 1-2-day history of shortness of breath with mild exertion. Patient reported subjective fever; chills and productive cough with yellow sputum. He complains of bilateral leg pain. Stress echocardiogram on 05/31/2018 showed an EF of 15%. Past Medical History Past Medical History (Chronic Problems): Chronic Problems (Last Reviewed 07/07/18 @ 09:04 by Benjamin Cerna MD) CAD (coronary artery disease) (Chronic) Severe left ventricular systolic dysfunction (Chronic) Polysubstance abuse (Chronic) marijuana, cocaine 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/28/17) SICD per Dr Berry @ [facility] Nicotine dependence (Chronic) Old myocardial infarction (Chronic) Hypertension (Chronic) History of coronary artery stent placement (Chronic 04/30/18) PCI-MEHRDAD-LAD 08/2014, [id number]-FGL-Aywp-Mid CX and Prox-Mid RCA 03/18/15, Thrombosis of CX stent 03/25/15. MEHRDAD to RCA (2.7 X 16 Promus Synergy) 04/30/2018 Atherosclerosis of coronary artery of [place] heart without angina pectoris (Chronic) PCI-MEHRDAD-LAD 08/2014, ZYO-RFE-Iozm-Mid CX and Prox-Mid RCA 03/18/15, Thrombosis of CX stent 03/25/15 Ischemic cardiomyopathy (Chronic) EF 20% per echo 08/08/2016 Hyperlipidemia (Chronic) Type 2 diabetes mellitus (Chronic) Chronic systolic CHF (congestive heart failure) (Chronic) Medical History: Medical History (Last Reviewed 07/07/18 @ 09:04 by Benjamin Cerna MD) Severe left ventricular systolic dysfunction (Chronic) I51.9 Polysubstance abuse (Chronic) F19.10 marijuana, cocaine Nicotine dependence (Chronic) F17.200 Old myocardial infarction (Chronic) I25.2 Hypertension (Chronic) I10 Atherosclerosis of coronary artery of [place] heart without angina pectoris (Chronic) I25.10 PCI-MEHRDAD-LAD 08/2014, EOT-VOP-Onfm-Mid CX and Prox-Mid RCA 03/18/15, Thrombosis of CX stent 03/25/15 Ischemic cardiomyopathy (Chronic) I25.5 EF 20% per echo 08/08/2016 Hyperlipidemia (Chronic) E78.5 Type 2 diabetes mellitus (Chronic) E11.9 Chronic systolic CHF (congestive heart failure) (Chronic) I50.22 Depression F32.9 Peripheral neuropathy G62.9 Allergies No Known Allergies Allergy (Verified 07/06/18 18:06) Home Medications: Ambulatory Orders Medication Instructions Recorded Insulin Glargine,Hum.rec.anlog 14 unit SQ DAILY 04/09/17 [Basaglar Kwikpen U-100] carvedilol 6.25 mg tablet 6.25 mg PO BID #60 tab 05/14/18 losartan 25 mg tablet 25 mg PO DAILY #30 tab 05/14/18 magnesium oxide 400 mg (241.3 mg 400 mg PO DAILY #30 tab 05/14/18 magnesium) tablet nitroglycerin 0.4 mg sublingual 0.4 mg SUBLINGUAL Q5M PRN #25 tab 05/14/18 tablet spironolactone 25 mg tablet 25 mg PO DAILY #30 tab 05/14/18 Aspirin E.C. [Ecotrin] 81 mg PO TID 05/26/18 Atorvastatin Calcium 40 mg PO DAILY 05/26/18 hydrOXYzine pamoate capsule 50 mg PO TID PRN PRN #30 capsule 05/26/18 [Vistaril pamoate capsule] Albuterol Aerosols [Ventolin 2.5 mg INHALATION Q2H PRN PRN #30 06/14/18 Aerosols] vial.neb. Clopidogrel Bisulfate [Plavix] 75 mg PO DAILY 07/06/18 Furosemide [Lasix] 80 mg PO BID 07/06/18 Insulin Aspart [Novolog Flexpen] 8 units SC ACHS 07/06/18 Isosorbide Mononitrate [Isosorbide 30 mg PO DAILY 07/06/18 Mononitrate ER] Potassium Chloride [K-Tab ER] 20 meq PO DAILY 07/06/18 Surgical History: Surgical History (Last Reviewed 07/07/18 @ 09:04 by Benjamin Cerna MD) 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) Onset Date: 06/28/[address] Berry @ [facility] History of coronary artery stent placement (Chronic) Onset Date: 04/30/18 Z95.5 PCI-MEHRDAD-LAD 08/2014, [id number]-[id number]-Sdig-Mid CX and Prox-Mid RCA 03/18/15, Thrombosis of CX stent 03/25/15. MEHRDAD to RCA (2.7 X 16 Promus Synergy) 04/30/2018 History of appendectomy Z90.49 Surgical History: - - Cardiac stent August 2014 Smoking Status: Current every day smoker - *Family History Paternal Family History: Family History (Last Reviewed 07/07/18 @ 09:04 by Benjamin Cerna MD) Mother CAD (coronary artery disease) Diabetes Hypertension Myocardial infarction Father CAD (coronary artery disease) Diabetes Hypertension Myocardial infarction Brother Hypertension History Items: Diabetes, High Cholesterol, Heart Disease, Hypertension Maternal Family History: Family History (Last Reviewed 07/07/18 @ 09:04 by Benjamin Cerna MD) Mother CAD (coronary artery disease) Diabetes Hypertension Myocardial infarction Father CAD (coronary artery disease) Diabetes Hypertension Myocardial infarction Brother Hypertension History Items: Diabetes, High Cholesterol, Heart Disease, Hypertension Review of Systems Constitutional: Reports: Chills, Fever - Subjective. Denies: Weight Change HEENT: Denies: Head Aches, Sinus Congestion, Sinus Drainage Cardiovascular: Denies: Chest Pain, Palpitations Respiratory: Reports: Cough, Shortness of breath upon exertion, Sputum production. Denies: Shortness of breath at rest Gastrointestinal: Denies: Abdominal Pain, Nausea, Vomiting Genitourinary: Denies: Dysuria Musculoskeletal: Denies: Joint Pain, Joint Tenderness Skin: Denies: Rash, Wounds Neurological: Denies: Numbness, Tingling, Focal weakness Psychiatric: Denies: Anxiety, Depression, Homicidal Ideations, Suicidal Ideations Hematologic/ Lymphatic: Denies: Easy Bruising, Easy Bleeding VTE Information - Inpt Only VTE Present on Admission: No VTE Mechan Device Prophylaxis: None VTE Pharm Prophylaxis ordered?: Yes - Physical Exam General: Oriented x3, Cooperative, Lethargic HEENT: Atraumatic, PERRLA, EOMI, Normocephalic Neck: Supple, Trachea Midline Lungs: - - Coarse Cardiovascular: Regular rate, No murmurs Abdomen: Bowel Sounds Present, Soft, Non Tender Extremities: No edema, Capillary Refill Less than 3 Seconds Skin: - - dry legs Musculoskeletal: No Tenderness to Palpation of Joints or Extremities Neurological: - - lethargic Psych/Mental Status: Normal Affect, Appropriate Vital Signs Temp Pulse Resp BP Pulse Ox 98.9 F 114 H 16 142/102 H 97 07/06/18 20:00 07/06/18 20:00 07/06/18 20:00 07/06/18 20:00 07/06/18 20:00 Oxygen Flow Rate (L/min) 2 Oxygen Delivery Method Nasal Cannula Weight: 92.986 kg Body Mass Index (BMI) 27.8 Finger Stick Blood Glucose 356 Microbiology Past 72 Hours 07/06/18 19:15 Influenza Types A,B Direct FA (FAREED) - Final Mucosa - Nose Laboratory Tests Past 24 Hrs 07/06/18 07/06/18 07/06/18 19:14 19:14 19:14 WBC 10.0 RBC 4.40 L Hgb 12.9 L Hct 39.0 L MCV 88.6 MCH 29.3 MCHC 33.1 RDW 13.8 RDW Differential 45.1 H Plt Count 257 MPV 9.7 PT 12.5 INR 1.0 APTT 25.8 Sodium 134 L Potassium 4.1 Chloride 102 Carbon Dioxide 23.0 Anion Gap 9 BUN 13 Creatinine 0.97 Estim Creat Clear Calc 111.11 Est GFR (MDRD) Af Amer 110 Est GFR (MDRD) Non-Af 91 BUN/Creatinine Ratio 13.4 Glucose 366 H Lactic Acid Calcium 8.0 L Total Bilirubin 0.60 AST 35 ALT 54 Alkaline Phosphatase 102 B-Natriuretic Peptide Total Protein 5.7 L Albumin 2.5 L Globulin 3.2 Albumin/Globulin Ratio 0.8 L 07/06/18 07/06/18 19:14 19:14 WBC RBC Hgb Hct MCV MCH MCHC RDW RDW Differential Plt Count MPV PT INR APTT Sodium Potassium Chloride Carbon Dioxide Anion Gap BUN Creatinine Estim Creat Clear Calc Est GFR (MDRD) Af Amer Est GFR (MDRD) Non-Af BUN/Creatinine Ratio Glucose Lactic Acid 1.1 Calcium Total Bilirubin AST ALT Alkaline Phosphatase B-Natriuretic Peptide Pending Total Protein Albumin Globulin Albumin/Globulin Ratio Assessment/Plan All Active Problems (Last Reviewed 07/07/18 @ 09:04 by Benjamin Cerna MD) Acute exacerbation of CHF (congestive heart failure) (Acute) Asthma exacerbation (Acute) Acute respiratory failure with hypoxia (Acute) The patient is a 42 year old M with a significant history of HTN; polysubstance abuse; diabetes heart failure and ischemic cardiomyopathy who presented with 1-2-day history of shortness of breath with mild exertion; and found to have sherwin vated BNP and radiographic evidence of bilateral pulmonary infiltrates and flattening of the diaphragm consistent with likely exacerbation of heart failure. Acute exacerbation of heart failure Patient with elevated BNP of 1049.9. Review of records show that this is highest BNP so far. Review of old records: Stress echocardiogram 05/31/2018 showed an EF of 15%. On Lasix 80 mg p.o. twice daily at home. We will escalate Lasix to 80 mg IV twice daily. Can leave home potassium supplementation. TSH is unremarkable. Daily weights Fluid restriction Strict intake and output. Cardiac diet. Continue guideline medications of losartan and Aldactone. Coreg continued. Imdur continued Scheduled DuoNeb and as needed albuterol. Received Levaquin and steroid in the emergency department. With no objective fever or leukocytosis likely this is all heart failure. If patient is not improving on diuresis consider restarting antibiotics. Will discontinue further steroids at this time. CAD status post stent/ischemic cardiomyopathy Continue heart failure medication as above Dual antiplatelet therapy of aspirin and Plavix continued Diabetes mellitus On presentation his blood glucose was not within goal. 10 units of short acting insulin x1 given We will escalate basal insulin and prandial insulin. Correction scale insulin added to his regimen. Bilateral leg pain. Patient since he has diabetic neuropathy which is likely. PRN Tylenol for now as patient was lethargic. DVT Prophylaxis Subcutaneous heparin ordered. Code Visit Inpatient E&M: 00032 Init Hosp L3
[2018-07-06 21:08] LABS: BNP,B-Type NATRIURETIC PEPTIDE 1439.9 pg/mL (0-100)
[2018-07-06] MEDS: levoFLOXacin IV 750 MG/150 ML BAG 100 MG IV (21:22)
[2018-07-07] VITALS (19 sets, daily range): BP systolic 96–154; BP diastolic 66–104; PULSE 82–108; RESP 18–24; TEMP 36.4–37; O2SAT 91–99
[2018-07-07] MEDS: 0.9% NaCl Peripheral Flush Adult/Peds IV ×4 (00:34→17:25)
[2018-07-07] MEDS: Carvedilol 6.25 MG Tablet PO ×3 (01:15→17:21)
[2018-07-07] MEDS: Furosemide 100 MG/10 ML Vial 80 MG IV ×3 (01:16→17:22)
[2018-07-07 01:21] LABS: Thyroid Stim Hormone (TSH) 1.41 uIU/mL (0.358-3.74)
[2018-07-07 03:00] LABS: Bedside Glucose > 500 mg/dL (70-110)
[2018-07-07] MEDS: Ipratropium/Albuterol Sulfate 3 ML AMPUL.NEB INHALATION ×4 (03:20→19:03)
[2018-07-07 03:40] LABS: Glucose 507 mg/dL (74-106)
[2018-07-07] MEDS: Insulin Lispro 100 UNIT/ML INSULN.PEN 10 UNIT SC ×2 (04:07→13:45)
[2018-07-07 06:15] LABS: Bedside Glucose 374 mg/dL (70-110)
[2018-07-07] MEDS: Insulin Lispro 100 UNIT/ML INSULN.PEN SQ ×2 (06:23→11:41)
--- NOTE | 2018-07-07 09:15 | ECHOD_ITS ---
Reason For Study: Dyspena/SOB Procedure This was a 2D Doppler, Color Flow transthoracic echocardiogram. Did not use Definity due to increased PAP. Exam performed portable in patient room. Left Ventricle Normal LV size. Ventricular thrombus in apex measuring 2.1cm by 1.5cm. The estimated ejection fraction is 15 %. Stage 3 diastolic dysfunction. There are regional wall motion abnormalities as specified. Posterior-Basal: Akinetic. Lateral-Basal: Akinetic. Infero-Basal: Hypokinetic. Remlap : Akinetic. The rest of the wall segments are hypokinetic. Right Ventricle Normal RV size. ICD or pacer leads identified within the right ventricle. Normal systolic function. Atria The left atrium is moderately enlarged. Normal right atrium. Mitral Valve Normal mitral valve. Mild (1+) eccentric mitral valve insufficiency. Tricuspid Valve Normal tricuspid valve. Moderately severe (3+) tricuspid valve insufficiency. Pulmonary artery systolic pressure is 65 mmHg. Moderate pulmonary hypertension. Aortic Valve Normal aortic valve. Trisinus/trileaflet aortic valve. Pulmonic Valve Normal pulmonic valve. Great Vessels Normal aortic root. The pulmonary artery is normal size. Inferior vena cava collapse with respiration. Pericardium/Pleural No pericardial effusion. MMode/2D Measurements & Calculations LVIDd: 7.0 cm IVSd: 1.0 cm Ao root diam: 2.6 cm LVIDs: 6.5 cm LVPWd: 0.84 cm RVDd: 5.3 cm FS: 7.1 % LAV(MOD-bp): 105.3 ml LVAd ap4: 44.0 cm2 SV(MOD-sp4): 22.3 ml LAV(MOD-bp) Indexed: 50.1 ml/m2 EDV(MOD-sp4): 184.8 ml LAV(MOD-sp2): 119.8 ml EDV(sp4-el): 193.2 ml LAV(MOD-sp4): 90.6 ml LVAs ap4: 40.7 cm2 ESV(MOD-sp4): 162.6 ml ESV(sp4-el): 169.7 ml EF(MOD-sp4): 12.0 % EF(sp4-el): 12.2 % SV(sp4-el): 23.6 ml LA A4 area: 25.6 cm2 LA dimension(2D): 5.4 cm RA A4 area: 14.1 cm2 Doppler Measurements & Calculations MV E max benjie: 87.9 cm/sec Lat Peak E' Benjie: 5.3 cm/sec Med Peak E' Benjie: 3.5 cm/sec MV A max benjie: 27.2 cm/sec E/E' lat: 16.6 E/E' med: 24.8 MV E/A: 3.2 Ao V2 max: 112.6 cm/sec LV V1 max: 83.4 cm/sec PA V2 max: 70.4 cm/sec Ao max P.1 mmHg LV V1 max P.8 mmHg Ao V2 mean: 84.0 cm/sec Ao mean P.0 mmHg Ao V2 VTI: 17.2 cm TR max benjie: 379.7 cm/sec TR max P.7 mmHg Interpretation Summary Normal LV size. The estimated ejection fraction is 15 %. There are regional wall motion abnormalities as specified. Stage 3 diastolic dysfunction. Ventricular thrombus in apex measuring 2.1cm by 1.5cm Pulmonary artery systolic pressure is 65 mmHg. Moderate pulmonary hypertension. Ordering Physician: Benjamin Cerna Referring Physician: Jesus Sarah Performed By: Gina Gaston, MACIE, RVT
[2018-07-07] MEDS: Aspirin E.C. 81 MG Tablet PO ×3 (09:18→17:21)
[2018-07-07] MEDS: Losartan Potassium 25 MG Tablet PO (09:18)
[2018-07-07] MEDS: Isosorbide Mononitrate 30 MG Tablet PO (09:18)
[2018-07-07] MEDS: Magnesium Oxide 400 MG Tablet PO (09:18)
[2018-07-07] MEDS: Clopidogrel Bisulfate 75 MG Tablet PO (09:18)
--- NOTE | 2018-07-07 09:19 | CPS ---
PEP Therapy not started at this time, patient sleeping.
[2018-07-07] MEDS: guaiFENesin 1,200 MG Tablet 1200 MG PO ×2 (09:20→21:52)
[2018-07-07] MEDS: Enoxaparin 40 MG/0.4 ML Syringe SC (09:20)
[2018-07-07] MEDS: Spironolactone 25 MG Tablet PO (09:20)
--- NOTE | 2018-07-07 10:49 | PCM.PN.HOSP ---
Subjective: Patient seen and examined. He was admitted with a complaint of shortness of breath with exertion as well as subjective fever and chills and mild productive cough. He was initially thought to have C OPD exacerbation BNP was elevated and so he is being managed for acute systolic CHF exacerbation. He is being diuresed with IV lasix. Patient has no complaints this morning. His shortness of breath is better. He is on 2 L of oxygen. He denies any fever or chills, palpitations or dizziness, chest pain, shortness of breath, abdominal pain, diarrhea vomiting. Review of systems otherwise negative. Labs and vitals reviewed. Vitals/I&O's: Vital Signs Temp Pulse Resp BP Pulse Ox 97.7 F L 87 20 H 136/104 H 94 07/07/18 09:07 07/07/18 09:07 07/07/18 09:07 07/07/18 09:07 07/07/18 09:07 Oxygen Flow Rate (L/min) 1 Oxygen Delivery Method Nasal Cannula Weight: 186 lb 7 oz Body Mass Index (BMI) 26.5 Finger Stick Blood Glucose 356 Intake and Output for Last 24 Hours 07/05/18 07/06/18 07/07/18 23:59 23:59 23:59 Intake Total 453 / 453 Output Total 4650 / 4650 Balance -4197 / -4197 General: Alert, Oriented x3, Cooperative, No apparent distress HEENT: Atraumatic Oral: Moist Mucosa Neck: Supple, No JVD, Negative Carotid Bruits Lungs: - - mildly decreased breath sounds bibasally, no wheezes or crackles. on 2L of oxygen by nasal cannula Cardiovascular: Regular rate, Regular Rhythm, Normal S1, Normal S2, No murmurs Abdomen: Bowel Sounds Present, Soft, Non Tender Extremities: No clubbing, No cyanosis, No edema, Capillary Refill Less than 3 Seconds Skin: No rashes, No breakdown Musculoskeletal: No Tenderness to Palpation of Joints or Extremities Neurological: Cranial nerves II-XII grossly intact Psych/Mental Status: Normal Affect, Appropriate, Alert and oriented to time, place, person, mood and affect Microbiology Past 72 Hours 07/06/18 19:15 Mucosa - Nose Influenza Types A,B Direct FA (FAREED) - Final Laboratory Results 07/06/18 19:14: WBC 10.0, RBC 4.40 L, Hgb 12.9 L, Hct 39.0 L, MCV 88.6, MCH 29.3, MCHC 33.1, RDW 13.8, RDW Differential 45.1 H, Plt Count 257, MPV 9.7 07/06/18 19:14: PT 12.5, INR 1.0, APTT 25.8 07/06/18 19:14: Sodium 134 L, Potassium 4.1, Chloride 102, Carbon Dioxide 23.0, Anion Gap 9, BUN 13, Creatinine 0.97, Estim Creat Clear Calc 111.11, Est GFR (MDRD) Af Amer 110, Est GFR (MDRD) Non-Af 91, BUN/Creatinine Ratio 13.4, Glucose 366 H, Calcium 8.0 L, Total Bilirubin 0.60, AST 35, ALT 54, Alkaline Phosphatase 102, Total Protein 5.7 L, Albumin 2.5 L, Globulin 3.2, Albumin/Globulin Ratio 0.8 L 07/06/18 19:14: Lactic Acid 1.1 07/06/18 19:14: B-Natriuretic Peptide 1439.9 H 07/06/18 19:14: TSH 1.41 07/07/18 02:48: POC Glucose > 500 H* 07/07/18 03:15: Glucose 507 H* 07/07/18 06:11: POC Glucose 374 H Diagnostic Data Chest X-Ray 07/06/18 18:50 IMPRESSION: Cardiomegaly. Electronically Signed: Osmar Peck DO at 19:22 EST Tel [phone], Service support , Current Medications Acetaminophen (Tylenol) 650 mg PO Q6H PRN PRN PRN Reason: Mild Pain (scale 0-3)/T>100.7 Albuterol Sulfate (Ventolin Aerosols) 2.5 mg INHALATION Q2H PRN PRN PRN Reason: SHORTNESS OF BREATH Albuterol/Ipratropium (Duoneb) 3 ml INHALATION Q4H.RT [facility] Last Admin: 07/07/18 06:57 Dose: 3 ml Aspirin (Ecotrin) 81 mg PO TIDCM [facility] Last Admin: 07/07/18 09:18 Dose: 81 mg Atorvastatin Calcium (Lipitor) 40 mg PO DAILY@2200 [facility] Bisacodyl (Dulcolax) 5 mg PO DAILY PRN PRN PRN Reason: Constipation Carvedilol (Coreg) 6.25 mg PO BIDCM [facility] Last Admin: 07/07/18 09:20 Dose: 6.25 mg Clopidogrel Bisulfate (Plavix) 75 mg PO DAILY [facility] Last Admin: 07/07/18 09:18 Dose: 75 mg Dextrose (D50w Syringe) 0 gm IV X1 PRN; Protocol PRN Reason: Hypoglycemia Enoxaparin Sodium (Lovenox) 40 mg SC DAILY@1000 [facility] Last Admin: 07/07/18 09:20 Dose: 40 mg Furosemide (Lasix) 80 mg IV BIDLX [facility] Last Admin: 07/07/18 09:18 Dose: 80 mg Glucagon () 1 mg IM .X1 PRN PRN Reason: Hypoglycemia Guaifenesin (Mucinex) 1,200 mg PO BID [facility] Last Admin: 07/07/18 09:20 Dose: 1,200 mg Hydroxyzine Pamoate (Vistaril Pamoate Capsule) 50 mg PO TID PRN PRN PRN Reason: ANXIETY Insulin Glargine (Lantus (Bkc)) 24 units SC DAILY [facility] Last Admin: 07/07/18 10:20 Dose: 24 units Insulin Human Lispro (Humalog Kwikpen (Bkc)) 14 unit SC [facility] Insulin Human Lispro (Humalog Kwikpen (Bkc)) 0 unit SQ ACHS [facility]; Protocol Isosorbide Mononitrate (Imdur) 30 mg PO DAILY [facility] Last Admin: 07/07/18 09:18 Dose: 30 mg Losartan Potassium (Cozaar) 25 mg PO DAILY [facility] Last Admin: 07/07/18 09:18 Dose: 25 mg Magnesium Hydroxide (Milk Of Magnesia) 30 ml PO DAILY PRN PRN PRN Reason: Constipation Magnesium Oxide (Mag-Ox 400) 400 mg PO DAILY [facility] Last Admin: 07/07/18 09:18 Dose: 400 mg Ondansetron HCl (Zofran) 4 mg IV Q8H PRN PRN PRN Reason: Nausea Potassium Chloride (K-Dur) 20 meq PO BIDCM [facility] Last Admin: 07/07/18 09:18 Dose: 20 meq Sodium Chloride () 5 - 15 ml IV UD PRN PRN Reason: SALINE FLUSH Last Admin: 07/07/18 06:25 Dose: 10 ml Spironolactone (Aldactone) 25 mg PO DAILY [facility] Last Admin: 07/07/18 09:20 Dose: 25 mg Medical Necessity - Tobacco Use Smoking Status: Current every day smoker Tobacco Use: Vapor Assessment/Plan All Active Problems (Last Reviewed 07/07/18 @ 09:04 by Benjamin Cerna MD) Acute exacerbation of CHF (congestive heart failure) (Acute) Asthma exacerbation (Acute) Acute respiratory failure with hypoxia (Acute) 1. Acute on chronic Heart failure with reduced EF has a knowm jhistory of ischemic cardiomyopathy, with EF of 15% (05/31/18) BNP on admission was 1439. Admits to not taking his Lasix at home. Chest x-ray showed cardiomegaly. On IV Lasix 80 mg twice daily. Fluid restriction to 1500 cc daily. Strict input and output. Urine output since admission is 4.65 L. In Negative balance by 4.197 L. Steroids discontinued as symptoms are due to heart failure On breathing treatments. on carvedilol and spironolactone On potassium supplementation. 2. CAD s/p stents On Lasix as under 1. On aspirin and Plavix as well. 3. Diabetes mellitus with peripheral neuropathy. Blood sugars poorly controlled. On Lantus 14 units daily at home; it was increased to 24 units daily on admission. and lispro 14 units before meals at bedtime. Also on insulin sliding scale. I doubt he has been compliant as patient admits to not being compliant with his heart failure medications. Last A1c was 8.7 on April 30, 2018. 4. DVT prophylaxis: On heparin Code Visit Inpatient E&M: 13001 [facility] L3
--- NOTE | 2018-07-07 10:53 | PN_ITS ---
Subjective: Patient seen and examined. He was admitted with a complaint of shortness of breath with exertion as well as subjective fever and chills and mild productive cough. He was initially thought to have C OPD exacerbation BNP was elevated and so he is being managed for acute systolic CHF exacerbation. He is being diuresed with IV lasix. Patient has no complaints this morning. His shortness of breath is better. He is on 2 L of oxygen. He denies any fever or chills, palpitations or dizziness, chest pain, shortness of breath, abdominal pain, diarrhea vomiting. Review of systems otherwise negative. Labs and vitals reviewed. Vitals/I&O's: Vital Signs Temp Pulse Resp BP Pulse Ox 97.7 F L 87 20 H 136/104 H 94 07/07/18 09:07 07/07/18 09:07 07/07/18 09:07 07/07/18 09:07 07/07/18 09:07 Oxygen Flow Rate (L/min) 1 Oxygen Delivery Method Nasal Cannula Weight: 186 lb 7 oz Body Mass Index (BMI) 26.5 Finger Stick Blood Glucose 356 Intake and Output for Last 24 Hours 07/05/18 07/06/18 07/07/18 23:59 23:59 23:59 Intake Total 453 / 453 Output Total 4650 / 4650 Balance -4197 / -4197 General: Alert, Oriented x3, Cooperative, No apparent distress HEENT: Atraumatic Oral: Moist Mucosa Neck: Supple, No JVD, Negative Carotid Bruits Lungs: - - mildly decreased breath sounds bibasally, no wheezes or crackles. on 2L of oxygen by nasal cannula Cardiovascular: Regular rate, Regular Rhythm, Normal S1, Normal S2, No murmurs Abdomen: Bowel Sounds Present, Soft, Non Tender Extremities: No clubbing, No cyanosis, No edema, Capillary Refill Less than 3 Seconds Skin: No rashes, No breakdown Musculoskeletal: No Tenderness to Palpation of Joints or Extremities Neurological: Cranial nerves II-XII grossly intact Psych/Mental Status: Normal Affect, Appropriate, Alert and oriented to time, place, person, mood and affect Microbiology Past 72 Hours 07/06/18 19:15 Mucosa - Nose Influenza Types A,B Direct FA (FAREED) - Final Laboratory Results 07/06/18 19:14: WBC 10.0, RBC 4.40 L, Hgb 12.9 L, Hct 39.0 L, MCV 88.6, MCH 29.3, MCHC 33.1, RDW 13.8, RDW Differential 45.1 H, Plt Count 257, MPV 9.7 07/06/18 19:14: PT 12.5, INR 1.0, APTT 25.8 07/06/18 19:14: Sodium 134 L, Potassium 4.1, Chloride 102, Carbon Dioxide 23.0, Anion Gap 9, BUN 13, Creatinine 0.97, Estim Creat Clear Calc 111.11, Est GFR (MDRD) Af Amer 110, Est GFR (MDRD) Non-Af 91, BUN/Creatinine Ratio 13.4, Glucose 366 H, Calcium 8.0 L, Total Bilirubin 0.60, AST 35, ALT 54, Alkaline Phosphatase 102, Total Protein 5.7 L, Albumin 2.5 L, Globulin 3.2, Albumin/Globulin Ratio 0.8 L 07/06/18 19:14: Lactic Acid 1.1 07/06/18 19:14: B-Natriuretic Peptide 1439.9 H 07/06/18 19:14: TSH 1.41 07/07/18 02:48: POC Glucose > 500 H* 07/07/18 03:15: Glucose 507 H* 07/07/18 06:11: POC Glucose 374 H Diagnostic Data Chest X-Ray 07/06/18 18:50 IMPRESSION: Cardiomegaly. Electronically Signed: Osmar Peck DO at 19:22 EST Tel [phone], Service support , Current Medications Acetaminophen (Tylenol) 650 mg PO Q6H PRN PRN PRN Reason: Mild Pain (scale 0-3)/T>100.7 Albuterol Sulfate (Ventolin Aerosols) 2.5 mg INHALATION Q2H PRN PRN PRN Reason: SHORTNESS OF BREATH Albuterol/Ipratropium (Duoneb) 3 ml INHALATION Q4H.RT [facility] Last Admin: 07/07/18 06:57 Dose: 3 ml Aspirin (Ecotrin) 81 mg PO TIDCM [facility] Last Admin: 07/07/18 09:18 Dose: 81 mg Atorvastatin Calcium (Lipitor) 40 mg PO DAILY@2200 [facility] Bisacodyl (Dulcolax) 5 mg PO DAILY PRN PRN PRN Reason: Constipation Carvedilol (Coreg) 6.25 mg PO BIDCM [facility] Last Admin: 07/07/18 09:20 Dose: 6.25 mg Clopidogrel Bisulfate (Plavix) 75 mg PO DAILY [facility] Last Admin: 07/07/18 09:18 Dose: 75 mg Dextrose (D50w Syringe) 0 gm IV X1 PRN; Protocol PRN Reason: Hypoglycemia Enoxaparin Sodium (Lovenox) 40 mg SC DAILY@1000 [facility] Last Admin: 07/07/18 09:20 Dose: 40 mg Furosemide (Lasix) 80 mg IV BIDLX [facility] Last Admin: 07/07/18 09:18 Dose: 80 mg Glucagon () 1 mg IM .X1 PRN PRN Reason: Hypoglycemia Guaifenesin (Mucinex) 1,200 mg PO BID [facility] Last Admin: 07/07/18 09:20 Dose: 1,200 mg Hydroxyzine Pamoate (Vistaril Pamoate Capsule) 50 mg PO TID PRN PRN PRN Reason: ANXIETY Insulin Glargine (Lantus (Bkc)) 24 units SC DAILY [facility] Last Admin: 07/07/18 10:20 Dose: 24 units Insulin Human Lispro (Humalog Kwikpen (Bkc)) 14 unit SC [facility] Insulin Human Lispro (Humalog Kwikpen (Bkc)) 0 unit SQ ACHS [facility]; Protocol Isosorbide Mononitrate (Imdur) 30 mg PO DAILY [facility] Last Admin: 07/07/18 09:18 Dose: 30 mg Losartan Potassium (Cozaar) 25 mg PO DAILY [facility] Last Admin: 07/07/18 09:18 Dose: 25 mg Magnesium Hydroxide (Milk Of Magnesia) 30 ml PO DAILY PRN PRN PRN Reason: Constipation Magnesium Oxide (Mag-Ox 400) 400 mg PO DAILY [facility] Last Admin: 07/07/18 09:18 Dose: 400 mg Ondansetron HCl (Zofran) 4 mg IV Q8H PRN PRN PRN Reason: Nausea Potassium Chloride (K-Dur) 20 meq PO BIDCM [facility] Last Admin: 07/07/18 09:18 Dose: 20 meq Sodium Chloride () 5 - 15 ml IV UD PRN PRN Reason: SALINE FLUSH Last Admin: 07/07/18 06:25 Dose: 10 ml Spironolactone (Aldactone) 25 mg PO DAILY [facility] Last Admin: 07/07/18 09:20 Dose: 25 mg Medical Necessity - Tobacco Use Smoking Status: Current every day smoker Tobacco Use: Vapor Assessment/Plan All Active Problems (Last Reviewed 07/07/18 @ 09:04 by Benjamin Cerna MD) Acute exacerbation of CHF (congestive heart failure) (Acute) Asthma exacerbation (Acute) Acute respiratory failure with hypoxia (Acute) 1. Acute on chronic Heart failure with reduced EF * has a knowm jhistory of ischemic cardiomyopathy, with EF of 15% (05/31/18) * BNP on admission was 1439. * Admits to not taking his Lasix at home. * Chest x-ray showed cardiomegaly. * On IV Lasix 80 mg twice daily. * Fluid restriction to 1500 cc daily. * Strict input and output. Urine output since admission is 4.65 L. In Negative balance by 4.197 L. * Steroids discontinued as symptoms are due to heart failure * On breathing treatments. * on carvedilol and spironolactone * On potassium supplementation. * 2. CAD s/p stents * On Lasix as under 1. On aspirin and Plavix as well. * 3. Diabetes mellitus with peripheral neuropathy. * Blood sugars poorly controlled. * On Lantus 14 units daily at home; it was increased to 24 units daily on admission. and lispro 14 units before meals at bedtime. * Also on insulin sliding scale. * I doubt he has been compliant as patient admits to not being compliant with his heart failure medications. * Last A1c was 8.7 on April 30, 2018. * 4. DVT prophylaxis: On heparin Code Visit Inpatient E&M: 28402 Subs Hosp L3
[2018-07-07] MEDS: Insulin Lispro 100 UNIT/ML INSULN.PEN 14 UNIT SC ×3 (11:40→21:49)
[2018-07-07 11:58] LABS: Glucose 434 mg/dL (74-106)
[2018-07-07 12:25] LABS: Bedside Glucose 460 mg/dL (70-110)
[2018-07-07 12:36] LABS: Bedside Glucose 473 mg/dL (70-110)
--- NOTE | 2018-07-07 13:10 | CPS ---
PEP Therapy Device at bedside, not instructed at this time. Patient very sleepy.
[2018-07-07 13:50] LABS: Bedside Glucose 434 mg/dL (70-110)
[2018-07-07 15:10] LABS: Bedside Glucose 300 mg/dL (70-110)
--- NOTE | 2018-07-07 16:28 | CPS ---
PEP Therapy Device at bedside, not instructed: patient still sleeping. Patient not pleased with [employer] waking him for Aerosol Treatment.
[2018-07-07 19:36] LABS: Bedside Glucose 149 mg/dL (70-110)
[2018-07-07 21:41] LABS: Bedside Glucose 142 mg/dL (70-110)
[2018-07-07] MEDS: Atorvastatin Calcium 40 MG Tablet PO (21:52)
[2018-07-08] VITALS (9 sets, daily range): BP systolic 104–113; BP diastolic 66–75; PULSE 77–98; RESP 16–18; TEMP 36.3–36.7; O2SAT 92–98
[2018-07-08 05:41] LABS: Absolute Lymphocyte Count 2.71 X10^3/ul (0.83-4.51); Absolute Neutrophil Count 12.1 X10^3/uL (2.0-7.7); Basophil# 0.02 X10^3/uL; Basophil% 0.1 % (0-1); Eosinophil# 0.07 X10^3/uL; Eosinophils% 0.4 % (0-5); Hematocrit 43.4 % (40-54); Hemoglobin 14.4 g/dl (13.0-16.5); Lymphocyte # 2.71 X10^3/ul (4.0); Mean Corp Hgb Conc 33.2 g/gl (32-36); Mean Corpuscular Volume 87.3 fL (80-94); Mean Platelet Vol. 9.8 fl (6.2-12.0); Monocyte# 0.97 X10^3/uL; Monocyte% 6.1 % (0-10); Neutrophil # 12.11 X10^3/uL (2.7-7.7); Neutrophil % 76.2 % (47-70); Platelet Count 307 K/mm3 (150-450); RBC Distribution Width CV 13.6 % (11.6-14.6); RBC Distribution Width SD 42.9 fl (35.1-43.9); Red Blood Count 4.97 M/mm3 (4.6-6.2); White Blood Count 15.9 K/mm3 (4.4-11.0)
[2018-07-08 05:44] LABS: POSITIVE COUNT NO; POSITIVE DIFFERENTIAL NO; POSITIVE MORPHOLOGY NO
[2018-07-08 05:54] LABS: Anion Gap 10 (5-15); BUN 22 mg/dL (7-18); BUN/Creat Ratio 21.4 RATIO (10-20); Calcium,Total 8.2 mg/dL (8.5-10.1); Chloride 104 mmol/L (98-107); Creatinine, Serum 1.03 mg/dL (0.70-1.30); EST Glomerular Filtration Rate 85 mL/min (>60); Est Glom Filt Rate - Afr Amer 102 mL/min (>60); Estimated Creatinine Clearance 104.64 ml/min; Glucose 155 mg/dL (74-106); Potassium 3.9 mmol/L (3.5-5.1); Sodium Level 139 mmol/L (136-145)
[2018-07-08] MEDS: Ipratropium/Albuterol Sulfate 3 ML AMPUL.NEB INHALATION ×2 (07:13→11:10)
[2018-07-08] MEDS: Carvedilol 6.25 MG Tablet PO (08:38)
[2018-07-08] MEDS: Aspirin E.C. 81 MG Tablet PO (08:38)
[2018-07-08] MEDS: Insulin Lispro 100 UNIT/ML INSULN.PEN SQ (08:39)
[2018-07-08] MEDS: Insulin Lispro 100 UNIT/ML INSULN.PEN 14 UNIT SC (08:39)
[2018-07-08 08:50] LABS: Bedside Glucose 400 mg/dL (70-110)
--- NOTE | 2018-07-08 09:56 | DCINST_ITS ---
You will use the following diet at home:: Cardiac Your food should be the consistency of: Regular Your liquids should be the consistency of: Regular/Thin Discharge Activity: Return to Normal Activity Weight Bearing Status: Weight bearing as tolerated Call your doctor if you observe: Shortness of breath, Swelling in the ankles Instructions: What Is Heart Failure?, Heart Failure: Warning Signs of a Flare- Up Additional Instructions: please be compliant with taking your medications Allergies/Adverse Reactions: Allergies No Known Allergies Allergy (Verified 07/06/18 18:06) Medications to take at Discharge Insulin Glargine,Hum.rec.anlog [Basaglar Kwikpen U-100] 14 unit SQ DAILY 04/09/17 carvedilol 6.25 mg tablet 6.25 mg PO BID #60 tab 05/14/18 losartan 25 mg tablet 25 mg PO DAILY #30 tab 05/14/18 magnesium oxide 400 mg (241.3 mg magnesium) tablet 400 mg PO DAILY #30 tab 05/14/18 nitroglycerin 0.4 mg sublingual tablet 0.4 mg SUBLINGUAL Q5M PRN #25 tab 05/14/18 spironolactone 25 mg tablet 25 mg PO DAILY #30 tab 05/14/18 Aspirin E.C. [Ecotrin] 81 mg PO TID 05/26/18 Atorvastatin Calcium 40 mg PO DAILY 05/26/18 hydrOXYzine pamoate capsule [Vistaril pamoate capsule] 50 mg PO TID PRN PRN #30 capsule 05/26/18 Albuterol Aerosols [Ventolin Aerosols] 2.5 mg INHALATION Q2H PRN PRN #30 vial.neb. 06/14/18 Clopidogrel Bisulfate [Plavix] 75 mg PO DAILY 07/06/18 Furosemide [Lasix] 80 mg PO BID 07/06/18 Insulin Aspart [Novolog Flexpen] 8 units SC ACHS 07/06/18 Isosorbide Mononitrate [Isosorbide Mononitrate ER] 30 mg PO DAILY 07/06/18 Potassium Chloride [K-Tab ER] 20 meq PO DAILY 07/06/18 Guaifenesin [Mucinex] 1,200 mg PO BID #30 tablet 07/08/18 The following prescriptions were given: Guaifenesin [Mucinex] 1,200 mg PO BID #30 tablet Orders to be completed after discharge: Glucometer Location: None Selected Primary Care Physician: Jesus Sarah [Primary Care Provider] - Please follow up with your Primary Care Physician in: one week Test Results: Test results from this visit will be discussed in further detail at your follow- up appointment, if applicable. Proposed Discharge Date: 07/08/18
--- NOTE | 2018-07-08 09:56 | PCM.DC.SUM ---
Discharge Date and Diagnosis Date of Admission: 07/06/18 Date of Discharge: 07/08/18 - Primary Discharge Diagnosis [id number]-[id number] systolic heart failure - Secondary Discharge Diagnosis Chronic Problems (Last Reviewed 07/07/18 @ 09:04 by Benjamin Cerna MD) CAD (coronary artery disease) (Chronic) Severe left ventricular systolic dysfunction (Chronic) Polysubstance abuse (Chronic) marijuana, cocaine 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/28/17) SICD per Dr Berry @ [facility] Nicotine dependence (Chronic) Old myocardial infarction (Chronic) Hypertension (Chronic) History of coronary artery stent placement (Chronic 04/30/18) PCI-MEHRDAD-LAD 08/2014, BYK-RDO-Lfka-Mid CX and Prox-Mid RCA 03/18/15, Thrombosis of CX stent 03/25/15. MEHRDAD to RCA (2.7 X 16 Promus Synergy) 04/30/2018 Atherosclerosis of coronary artery of [place] heart without angina pectoris (Chronic) PCI-MEHRDAD-LAD 08/2014, SHP-GBM-Lsal-Mid CX and Prox-Mid RCA 03/18/15, Thrombosis of CX stent 03/25/15 Ischemic cardiomyopathy (Chronic) EF 20% per echo 08/08/2016 Hyperlipidemia (Chronic) Type 2 diabetes mellitus (Chronic) Chronic systolic CHF (congestive heart failure) (Chronic) Hospital Course and Treatment Diagnostic Data Chest X-Ray 07/06/18 18:50 IMPRESSION: Cardiomegaly. Electronically Signed: Osmar Peck DO at 19:22 EST Tel [phone], Service support , Operations: None Procedures: None Summary of Care Provided: The patient is a 42 year old M with a PMH of CAD s/p stents, ischemic cardiomyopathy and HFrEF, HTN and diabetes. He was admitted with complaint of shortness of breath with exertion for 2 days as well as a subjective fever and chills and productive cough with yellow sputum. Patient has a known EF of 15% per stress echocardiogram done in May 2018. BNP on admission was 1439.9. Was admitted and managed for acute on chronic exacerbation of heart failure. He was diuresed with IV Lasix. Patient shortness of breath resolved. Of note, patient's sugars were poorly controlled and he admitted to not being compliant. Patient was counseled strongly about need for compliance both with the Lasix and with his insulin. Patient remained stable and was discharged home on 07/08/2018. His saturation on room air at rest was 97% and with ambulation was 92% and so patient did not qualify for home oxygen. He was discharged home on 07/08/2018 and is follow-up with his primary care doctor and mail room. Patient seen and examined prior to discharge. He had no complaints and felt well. Review of systems otherwise negative. Labs and vitals reviewed. Home medication reviewed on consult. o/e: Vital Signs Height 6 ft Weight: 189 lb 13.088 oz Weight in Pounds 189.8 lbs BMI 25.9 Pulse Ox [AMBULATING on Room 92 Air] Pulse Ox [At REST on Room Air] 97 Pulse Ox 98 Temperature 98.0 F Pulse Rate 79 Respiratory Rate 18 Blood Pressure 104/70 Blood Pressure Position Semi-Fowlers [] General: Alert, Oriented x3, Cooperative, No apparent distress HEENT: Atraumatic Oral: Moist Mucosa Neck: Supple, No JVD, Negative Carotid Bruits Lungs: - - mildly decreased breath sounds bibasally, no wheezes or crackles. on room air. Cardiovascular: Regular rate, Regular Rhythm, Normal S1, Normal S2, No murmurs Abdomen: Bowel Sounds Present, Soft, Non Tender Extremities: No clubbing, No cyanosis, No edema, Capillary Refill Less than 3 Seconds Skin: No rashes, No breakdown Musculoskeletal: No Tenderness to Palpation of Joints or Extremities Neurological: Cranial nerves II-XII grossly intact Psych/Mental Status: Normal Affect, Appropriate, Alert and oriented to time, place, person, mood and affect Plan as detailed above. - Physical Exam Vital Signs Temp Pulse Resp BP Pulse Ox 97.3 F L 77 18 106/75 95 07/08/18 08:32 07/08/18 08:32 07/08/18 08:32 07/08/18 08:32 07/08/18 08:32 Oxygen Flow Rate (L/min) [ 0 AMBULATING on Room Air] Oxygen Flow Rate (L/min) [At 0 REST on Room Air] Oxygen Flow Rate (L/min) 2 Oxygen Delivery Method Room Air Weight: 189 lb 13.088 oz Body Mass Index (BMI) 26.5 Finger Stick Blood Glucose 356 Intake and Output for Last 24 Hours 07/06/18 07/07/18 07/09/18 23:59 23:59 00:59 Intake Total 1303 / 1303 724 / 724 Output Total 6950 / 6950 550 / 550 Balance -5647 / -5647 174 / 174 Microbiology Past 72 Hours 07/07/18 03:15 Respiratory Panel (PCR) - Final Mucosa - Nasopharyngeal 07/06/18 19:15 Influenza Types A,B Direct FA (FAREED) - Final Mucosa - Nose Laboratory Tests Past 24 Hrs 07/07/18 07/08/18 07/08/18 11:33 05:20 05:20 WBC 15.9 H RBC 4.97 Hgb 14.4 Hct 43.4 MCV 87.3 MCH 29.0 MCHC 33.2 RDW 13.6 RDW Differential 42.9 Plt Count 307 MPV 9.8 Immature Gran % (Auto) 0.200 Neut % (Auto) 76.2 H Lymph % (Auto) 17.0 L [place] % (Auto) 6.1 Eos % (Auto) 0.4 Baso % (Auto) 0.1 Absolute Neuts (auto) 12.1 H Absolute Lymphs (auto) 2.71 Total Counted Not Reportable Sodium 139 Potassium 3.9 Chloride 104 Carbon Dioxide 25.0 Anion Gap 10 BUN 22 H Creatinine 1.03 Estim Creat Clear Calc 104.64 Est GFR (MDRD) Af Amer 102 Est GFR (MDRD) Non-Af 85 BUN/Creatinine Ratio 21.4 H Glucose 434 H 155 H Calcium 8.2 L POC Glucose 07/08/18 07/07/18 07/07/18 08:29 21:31 17:01 POC Glucose 400 H 142 H 149 H 07/07/18 07/07/18 07/07/18 15:02 13:41 12:29 POC Glucose 300 H 434 H 473 H* 07/07/18 11:16 POC Glucose 460 H* Discharge Diet: Low fat/ Low Cholesterol Discharge Activity: Return to Normal Activity Weight Bearing Status: Weight bearing as tolerated Call your doctor if you observe: Shortness of breath, Swelling in the ankles Home Medications: Medications to take at Discharge Insulin Glargine,Hum.rec.anlog [Azebaglstacy Fam U-100] 14 unit SQ DAILY 04/09/17 carvedilol 6.25 mg tablet 6.25 mg PO BID #60 tab 05/14/18 losartan 25 mg tablet 25 mg PO DAILY #30 tab 05/14/18 magnesium oxide 400 mg (241.3 mg magnesium) tablet 400 mg PO DAILY #30 tab 05/14/18 nitroglycerin 0.4 mg sublingual tablet 0.4 mg SUBLINGUAL Q5M PRN #25 tab 05/14/18 spironolactone 25 mg tablet 25 mg PO DAILY #30 tab 05/14/18 Aspirin E.C. [Ecotrin] 81 mg PO TID 05/26/18 Atorvastatin Calcium 40 mg PO DAILY 05/26/18 hydrOXYzine pamoate capsule [Vistaril pamoate capsule] 50 mg PO TID PRN PRN #30 capsule 05/26/18 Albuterol Aerosols [Ventolin Aerosols] 2.5 mg INHALATION Q2H PRN PRN #30 vial.neb. 06/14/18 Clopidogrel Bisulfate [Plavix] 75 mg PO DAILY 07/06/18 Furosemide [Lasix] 80 mg PO BID 07/06/18 Insulin Aspart [Novolog Flexpen] 8 units SC ACHS 07/06/18 Isosorbide Mononitrate [Isosorbide Mononitrate ER] 30 mg PO DAILY 07/06/18 Potassium Chloride [K-Tab ER] 20 meq PO DAILY 07/06/18 Guaifenesin [Mucinex] 1,200 mg PO BID #30 tablet 07/08/18 Following Prescrptions Were Given to Patient: Guaifenesin [Mucinex] 1,200 mg PO BID #30 tablet Other Amb Orders: Glucometer Location: None Selected Primary Care Physician: Jesus Sarah [Primary Care Provider] - Please follow up with your Primary Care Physician in: one week Patient Instructions: What Is Heart Failure?, Heart Failure: Warning Signs of a Flare-Up Disposition: Home Minutes spent on discharge:: 40 Patient Condition:: Stable Medical Necessity - Tobacco Use Smoking Status: Current every day smoker Tobacco Use: Vapor Meaningful Use Info Meaningful Use Diagnoses (Choose all that apply): CHF - CHF KENNETH/ARB ordered at discharge?: Yes Documented LVEF (%): 15 Code Visit Inpatient E&M: 25252 Disch Hosp
[2018-07-08] MEDS: Clopidogrel Bisulfate 75 MG Tablet PO (10:52)
[2018-07-08] MEDS: Losartan Potassium 25 MG Tablet PO (10:52)
[2018-07-08] MEDS: Spironolactone 25 MG Tablet PO (10:53)
[2018-07-08] MEDS: Magnesium Oxide 400 MG Tablet PO (10:53)
[2018-07-08] MEDS: Isosorbide Mononitrate 30 MG Tablet PO (10:54)
[2018-07-08] MEDS: guaiFENesin 1,200 MG Tablet 1200 MG PO (10:55)
[2018-07-08] MEDS: Enoxaparin 40 MG/0.4 ML Syringe SC (10:55)
[2018-07-08] MEDS: Furosemide 100 MG/10 ML Vial 80 MG IV (10:55)
[2018-07-08 11:55] LABS: Bedside Glucose 247 mg/dL (70-110)
== END 2018-07-08 11:49 | disposition home or self-care (01) ==
LOC: ED 19:20 → MS3 21:39
PROVIDERS: Admitting Provider Hospitalist; Emergency Provider Emergency Medicine; Family Provider Internal Medicine; PCP Internal Medicine; Visit Provider Student in an Organized Health Care Education/Training Program
DX: I11.0 Hypertensive heart disease with heart failure (principal); I50.23 Acute on chronic systolic (congestive) heart failure; I25.2 Old myocardial infarction; I25.10 Atherosclerotic heart disease of native coronary artery without angina pectoris; J44.9 Chronic obstructive pulmonary disease, unspecified; I44.4 Left anterior fascicular block; E11.9 Type 2 diabetes mellitus without complications; E78.5 Hyperlipidemia, unspecified; E11.42 Type 2 diabetes mellitus with diabetic polyneuropathy; F17.290 Nicotine dependence, other tobacco product, uncomplicated; Z95.810 Presence of automatic (implantable) cardiac defibrillator; Z79.899 Other long term (current) drug therapy; Z79.4 Long term (current) use of insulin; Z79.02 Long term (current) use of antithrombotics/antiplatelets; Z79.82 Long term (current) use of aspirin; Z95.5 Presence of coronary angioplasty implant and graft
CPT/HCPCS: 36415; 71045; 80048; 80053; 81001; 82009; 82947; 82962; 83605; 83880; 84443; 85025; 85027; 85610; 85730; 87040; 87633; 87804; 93005; 93306; 94640; 94668; 94760; 96360; 96361; 96365; 96372; 96375; 96376; 99218; 99281; 99284; J7030; J7050; A4216; G0378; J1940

== ENCOUNTER 2018-07-08 22:32 | Emergency (ER) | payer MEDICAID, SELFPAY ==
[2018-04-30 13:15] VITALS: BMI 25.9
[2018-07-06 22:28] VITALS: BMI 26.5
[2018-07-08 22:32] VITALS: BP 110/72; PULSE 82; RESP 16; TEMP 36.6; O2SAT 96; BMI 26.4
[2018-07-08 22:46] LABS: Bedside Glucose 469 mg/dL (70-110)
--- NOTE | 2018-07-08 22:58 | ED.VISSUMM ---
- ER Visit Summary Date of Service: 07/08/18 Chief Complaint: Elevated blood sugar History of Present Illness: The patient is a 42 M who presents with elevated blood sugars that began tonight. Patient states his sugars were up to 596 at home. Patient does admit to some lightheadedness with this. Patient denies any chest pain or shortness of breath. Patient denies any polyuria or polydipsia. Patient denies any nausea or vomiting. Patient denies any fevers or chills. Physical Examination: Vital signs are stable. Patient is afebrile. Patient is in no acute distress. Oral mucosa is pink and moist. Neck is supple. Trachea is midline. There is no JVD noted. Heart was regular rate and rhythm. Lungs are clear and equal bilaterally. Abdomen is soft and nontender. Cranial nerves II through XII are intact. There are no focal motor or sensory deficits noted. The remaining physical exam is within normal limits. Test Results: CBC was normal. Basic metabolic profile showed an elevated BUN of 19 and an elevated glucose of 433. Urinalysis showed glucose of 1000 but there is no evidence of urinary tract infection. Serum ketones were negative. Initial BGT was 469. Emergency Department Course and Treatment: Patient was given a dose of Humalog 12 units subcu here. Repeat BGT 1 hour later was 345. Patient was instructed to continue his insulin as prescribed. Patient was instructed to follow-up with his primary care physician in 3-5 days for further management of his insulin. Patient understood and was agreeable with the plan. All questions were answered. Disposition: Discharge home Impression: Hyperglycemia This note was generated with [employer] dictation software. It may contain incorrect words, spelling, and punctuation that were not noted in review of the chart prior to signing ED Disposition - Plan for ED Patient: Disposition: Home or Assisted Living Diagnosis: Hyperglycemia Instructions: ED Hyperglycemia Diabetic Referrals: Jesus Sarah [Primary Care Provider] - 3-5 Days Additional Instructions: Please take your insulin as prescribed. Follow-up with your primary care physician in 3-5 days.
[2018-07-08] MEDS: 0.9% Normal Saline 1,000 ML 1000 ML IV (23:12)
[2018-07-08 23:22] LABS: Absolute Lymphocyte Count 2.14 X10^3/ul (0.83-4.51); Absolute Neutrophil Count 6.4 X10^3/uL (2.0-7.7); Basophil# 0.01 X10^3/uL; Basophil% 0.1 % (0-1); Eosinophil# 0.11 X10^3/uL; Eosinophils% 1.2 % (0-5); Hematocrit 41.6 % (40-54); Hemoglobin 13.7 g/dl (13.0-16.5); Lymphocyte # 2.14 X10^3/ul (4.0); Lymphocyte % 22.6 % (19-41); Mean Corp Hgb Conc 32.9 g/gl (32-36); Mean Corpuscular Hgb 29.2 pg (27.0-32.0); Mean Corpuscular Volume 88.7 fL (80-94); Mean Platelet Vol. 9.5 fl (6.2-12.0); Monocyte# 0.81 X10^3/uL; Monocyte% 8.5 % (0-10); Neutrophil # 6.41 X10^3/uL (2.7-7.7); Neutrophil % 67.5 % (47-70); POSITIVE COUNT NO; POSITIVE DIFFERENTIAL NO; POSITIVE MORPHOLOGY NO; Platelet Count 290 K/mm3 (150-450); RBC Distribution Width SD 45.3 fl (35.1-43.9); Red Blood Count 4.69 M/mm3 (4.6-6.2); White Blood Count 9.5 K/mm3 (4.4-11.0)
[2018-07-08 23:48] LABS: ALB/GLOB Ratio 0.8 RATIO (0.9-2.4); AST(SGOT) 16 U/L (15-37); Alanine Aminotransfer ALT/SGPT 34 U/L (16-61); Albumin, Serum 2.5 g/dL (3.2-5.0); Alkaline Phosphatase 101 U/L (45-117); Anion Gap 7 (5-15); BUN 19 mg/dL (7-18); BUN/Creat Ratio 17.8 RATIO (10-20); Calcium,Total 8.1 mg/dL (8.5-10.1); Chloride 103 mmol/L (98-107); Creatinine, Serum 1.07 mg/dL (0.70-1.30); EST Glomerular Filtration Rate 81 mL/min (>60); Est Glom Filt Rate - Afr Amer 98 mL/min (>60); Estimated Creatinine Clearance 100.73 ml/min; Globulin 3.1 g/dL (2.2-4.2); Glucose 433 mg/dL (74-106); Potassium 4.1 mmol/L (3.5-5.1); Protein, Total 5.6 g/dL (6.4-8.2); Sodium Level 136 mmol/L (136-145)
[2018-07-08 23:57] LABS: Bacteria 0 SEEN /hpf (None Seen); Mucous, Urine 0 SEEN /hpf (<or=2+); Red Blood Cells-Urine 0 SEEN /hpf (0-5); White Blood Cells 0 SEEN /hpf (0-5)
[2018-07-09 00:04] LABS: Color, Urine Straw (Yellow); Glucose, Dipstick 1000 mg/dl (Normal); Ketone-Dipstick Negative (Negative); Leukocyte Esterase-Dipstick Negative /ul (Negative); Nitrite-Dipstick Negative (Negative); Occult Blood-Urine Negative /ul (Negative); Protein-Dipstick Negative (Negative); Urine Bilirubin Dipstick Negative (Negative); Urine Clarity Clear (Clear); Urine Urobilinogen Normal (Normal); Urine pH 6.5 (5.0 - 8.0)
[2018-07-09 00:10] LABS: Squamous Epithelial Cells - UA 0-5 SEEN /hpf (0-5)
[2018-07-09 01:30] VITALS: BP 120/89; PULSE 100; RESP 15; O2SAT 96
[2018-07-09] MEDS: Insulin Lispro 100 UNIT/ML INSULN.PEN 12 UNIT SC (01:36)
[2018-07-09 01:41] LABS: Bedside Glucose 345 mg/dL (70-110)
[2018-07-09 01:57] VITALS: PULSE 95; RESP 16
== END 2018-07-09 02:10 | disposition home or self-care (01) ==
PROVIDERS: Emergency Provider Emergency Medicine; Family Provider Internal Medicine; PCP Internal Medicine
DX: E11.65 Type 2 diabetes mellitus with hyperglycemia (principal); Z79.4 Long term (current) use of insulin; Z79.51 Long term (current) use of inhaled steroids; Z79.82 Long term (current) use of aspirin; Z79.899 Other long term (current) drug therapy
CPT/HCPCS: 80053; 81001; 82009; 82962; 85025; J7030; A4216

== ENCOUNTER 2018-07-11 09:57 | Emergency (ER) | payer MEDICAID, SELFPAY ==
[2018-04-30 13:15] VITALS: BMI 25.9
[2018-07-11 09:59] VITALS: BP 141/91; PULSE 108; RESP 19; TEMP 36.3; O2SAT 99; BMI 26.4
--- NOTE | 2018-07-11 10:42 | ED.VISSUMM ---
- ER Visit Summary Date of Service: 07/11/18 Chief Complaint: Depression History of Present Illness: The patient is a 42 M presents to the emergency department with depression. The patient states that he has been battling depression for some time. He states that he used to be on Xanax which was prescribed from his primary care physician in [place]. However, he missed multiple follow-up appointments and was told that he was not be able to prescribe this anymore. He is been off this for greater than 3 months. He states because of this, he has been increasingly depressed. He denies any specific plan of self-harm. His significant other states that he has not been taking his medications because of his depression. His blood sugar has been running high. He denies any fevers or chills. Physical Examination: Vital signs reviewed General: Well-nourished, well-developed Head: Normocephalic, atraumatic Eyes: Pupils equal and reactive, extraocular muscles intact Neck, supple, no lymphadenopathy Heart: Regular rate and rhythm Respiratory: No distress, clear bilaterally Abdomen: Soft, nontender, nondistended, no peritoneal signs Back: Nontender Extremities: Nontender, no edema, no cords Skin: Normal color no rash Neuro: Alert and oriented, no focal or lateralizing deficits Test Results: [] Emergency Department Course and Treatment: The patient is not suicidal. He has no plan of self-harm. He states that all he needs her benzodiazepines. I did rehabilitation counselor him that this is not appropriate medication to have filled from the emergency department. He also has rather significant prior history of drug abuse. The patient was given oral Ativan. He was seen and evaluated by social work. Arrangements were made for the patient to be seen at the counseling center as an outpatient. Again, is not suicidal. He does feel safe at home. I will add Vistaril to his regimen. He will be discharged. Treatment Plan: [] Disposition: Discharge Impression: 1. Depression This note was generated with [employer] dictation software. It may contain incorrect words, spelling, and punctuation that were not noted in review of the chart prior to signing ED Disposition - Plan for ED Patient: Disposition: Home or Assisted Living Instructions: ED Depression Prescriptions: hydrOXYzine pamoate capsule [Vistaril] 50 mg PO TID PRN PRN #30 cap PRN Reason: Anxiety Referrals: Counseling,Center [GROUP OF PHYSICIANS] -
[2018-07-11] MEDS: LORazepam 1 MG Tablet 2 MG PO (10:57)
[2018-07-11 11:12] LABS: Amphetamine Urine VISTA NEGATIVE (<1000 ng/mL); Barbiturate Urine VISTA NEGATIVE (< 200 ng/mL); Benzodiazepine Urine VISTA NEGATIVE (< 200 ng/mL); Cocaine Urine VISTA NEGATIVE (< 300 ng/mL); Ecstacy Urine VISTA NEGATIVE (< 500 ng/mL); Methadone Urine VISTA NEGATIVE (< 300 ng/mL); PCP Urine VISTA NEGATIVE (< 25 ng/mL); THC Urine VISTA NEGATIVE (< 50 ng/mL); Vista UDS pH Range 6
--- NOTE | 2018-07-11 11:45 | CM.ED ---
SOCIAL WORK ASSESSMENT Referral Date: 07/11/18 Date of Assessment: 07/17/18 Informant: DR. RICHMOND Reason for Consult: DEPRESSION Information obtained from: PATIENT Living Arrangements: PATIENT LIVES HOME WITH SIGNIFICANT OTHER Employment/Financial: PATIENT REPORTS IS CURRENTLY NOT WORKING. Supports: PATIENT HAS GOOD SUPPORT FROM SIGNIFICANT OTHER. Social/Family Stressors: PATIENT REPORTS DEPRESSION AND ANXIETY AND STATES IS NO LONGER PRESCRIBED XANAX HE NO LONGER HAS A PRIMARY CARE PHYSICIAN. PATIENT STATES IS NOT LINKED WITH ANY MENTAL HEALTH AGENCIES AT THIS TIME AND IS REQUESTING THIS WORKER SET UP INTAKE APPOINTMENT. PATIENT WAS FIRED FROM PRIMARY CARE. Mental Health History: PATIENT ADMITS TO OF MENTAL HEALTH. Diagnoses: ANXIETY/DEPRESSION Medications: PREVIOUSLY PRESCRIBED XANAX Substance Abuse History: PATIENT ADMITS TO OF SUBSTANCE ABUSE. Substance(s) of choice: METH, COCAINE, MARIJUANA PATIENT STATES HAS QUIT USING METH AND COCAINE. Interventions: SET UP INTAKE APPOINTMENT WITH THE [facility]ING [facility] PER REQUEST OF PATIENT PATIENT PROVIDED WITH LIST OF PRIMARY CARE PHYSICIANS. Assessment: PATIENT IS A 42 Y/O MALE WHO PRESENTS TO THE ED WITH DEPRESSION/ANXIETY. PATIENT STATES WAS PRESCRIBED XANAX BY PRIMARY CARE WHOM HE NO LONGER FOLLOWS. PATIENT STATES NEEDS FOLLOW UP WITH PSYCH. DISCUSSED OPTIONS AND PATIENT REQUESTING THIS WORKER SET UP INTAKE APPOINTMENT WITH THE [facility]SELING C[facility]. PATIENT STATES PLAN IS TO RETURN HOME WITH SIG OTHER BEFORE. PATIENT DENIES ANY SUICIDAL OR HOMICIDAL IDEATIONS. THIS WORKER TO ASSIST WITH OUTPT MENTAL HEALTH SERVICES. PLAN: HOME WITH SIG OTHER BEFORE AND INTAKE APPOINTMENT AT THE [facility].
--- NOTE | 2018-07-11 11:50 | CM.ED ---
SOCIAL WORK NOTE CALL TO THE [facility]. INTAKE APPOINTMENT SCHEDULED FOR 07/18/18 AT 3:30P. UPDATED PT, DR. RICHMOND AND NURSING. TYLOR PÉREZ, NEWSPAPER MANAGER, PROCESS TECH.
[2018-07-11 11:52] LABS: Absolute Lymphocyte Count 2.46 X10^3/ul (0.83-4.51); Absolute Neutrophil Count 4.8 X10^3/uL (2.0-7.7); Basophil# 0.02 X10^3/uL; Basophil% 0.2 % (0-1); Eosinophil# 0.23 X10^3/uL; Eosinophils% 2.8 % (0-5); Hematocrit 43.6 % (40-54); Hemoglobin 14.4 g/dl (13.0-16.5); Lymphocyte # 2.46 X10^3/ul (4.0); Lymphocyte % 30.4 % (19-41); Mean Corpuscular Hgb 29.1 pg (27.0-32.0); Mean Corpuscular Volume 88.1 fL (80-94); Mean Platelet Vol. 9.7 fl (6.2-12.0); Monocyte# 0.56 X10^3/uL; Monocyte% 6.9 % (0-10); Neutrophil % 59.6 % (47-70); POSITIVE COUNT NO; POSITIVE DIFFERENTIAL NO; POSITIVE MORPHOLOGY NO; Platelet Count 274 K/mm3 (150-450); RBC Distribution Width CV 13.6 % (11.6-14.6); RBC Distribution Width SD 43.6 fl (35.1-43.9); Red Blood Count 4.95 M/mm3 (4.6-6.2); White Blood Count 8.1 K/mm3 (4.4-11.0)
[2018-07-11 11:59] LABS: Anion Gap 7 (5-15); BUN 10 mg/dL (7-18); BUN/Creat Ratio 11.9 RATIO (10-20); Calcium,Total 8.3 mg/dL (8.5-10.1); Chloride 102 mmol/L (98-107); Creatinine, Serum 0.84 mg/dL (0.70-1.30); EST Glomerular Filtration Rate 107 mL/min (>60); Est Glom Filt Rate - Afr Amer 129 mL/min (>60); Estimated Creatinine Clearance 128.31 ml/min; Glucose 322 mg/dL (74-106); Potassium 4.4 mmol/L (3.5-5.1); Sodium Level 134 mmol/L (136-145)
[2018-07-11 12:55] VITALS: BP 131/62; PULSE 69; RESP 15; O2SAT 98
[2018-07-11 13:15] LABS: Alcohol, Blood (Medical)-Serum < 3.0 mg/dL
== END 2018-07-11 12:56 | disposition home or self-care (01) ==
PROVIDERS: Emergency Provider Emergency Medicine; Family Provider Internal Medicine; PCP Internal Medicine
DX: F32.9 Major depressive disorder, single episode, unspecified (principal); I25.2 Old myocardial infarction; I25.10 Atherosclerotic heart disease of native coronary artery without angina pectoris; Z72.0 Tobacco use; Z79.4 Long term (current) use of insulin; Z79.51 Long term (current) use of inhaled steroids; Z79.82 Long term (current) use of aspirin; Z79.02 Long term (current) use of antithrombotics/antiplatelets; Z79.899 Other long term (current) drug therapy
CPT/HCPCS: 36415; 80048; 80307; 80320; 85025; 99283; G0480

== ENCOUNTER 2018-08-05 17:26 | Inpatient (IN) | payer MEDICAID, SELFPAY ==
[2018-04-30 13:15] VITALS: BMI 25.9
[2018-08-05] VITALS (11 sets, daily range): BP systolic 117–141; BP diastolic 91–109; PULSE 80–106; RESP 13–26; TEMP 36.6–37; O2SAT 95–100; BMI 26.4; BMI 26.5
[2018-08-05 18:10] LABS: Bedside Glucose 415 mg/dL (70-110)
--- NOTE | 2018-08-05 18:27 | RAD_ITS ---
STUDY: X-RAY CHEST REASON FOR EXAM: Male, 42 years old. Short of breath. TECHNIQUE: Single AP portable view of the chest. COMPARISON: 06/26/2018, 07/06/2018. FINDINGS: Normal lung volumes. Mild diffuse hazy increased density of the mid and lower lung song bilaterally suggestive of congestion/edema and/or multifocal pneumonia. No definite effusions. There is mild cardiac enlargement. Stable ICD lead over the sternum. Normal mediastinum and kelly. Normal visualized pulmonary arteries. Normal visualized aortic arch and descending thoracic aorta. Normal visualized thoracic spine. Normal visualized ribs, clavicles, and shoulders. There is no demonstrated abnormality of the visualized soft tissue structures of the upper abdomen. RAD/Chest 1 View (Portable) IMPRESSION: Mild diffuse hazy increased density of the mid and lower lung song bilaterally suggestive of congestion/edema and/or multifocal pneumonia. Electronically Signed: Krzysztof Barakat MD at 18:48 EDT , Service support ,
--- NOTE | 2018-08-05 18:28 | EKG12_ITS ---
Test Reason : Blood Pressure : / mmHG Vent. Rate : 090 BPM Atrial Rate : 090 BPM P-R Int : 162 ms QRS Dur : 100 ms QT Int : 394 ms P-R-T Axes : 054 -60 091 degrees QTc Int : 481 ms Normal sinus rhythm Possible Left atrial enlargement Left anterior fascicular block Anteroseptal infarct (cited on or before 05-DEC-2014) Confirmed by CHAR MCKEON, HAIM ([id number]), industrial editor PANCHITO SUTTON ([id number]) on 08/07/2018 8:07:26 AM Referred By: Confirmed By:HAIM PARDO MD
[2018-08-05 18:41] LABS: Basophil# 0.02 X10^3/uL; Basophil% 0.2 % (0-1); Eosinophil# 0.24 X10^3/uL; Eosinophils% 2.8 % (0-5); Hematocrit 40.3 % (40-54); Hemoglobin 13.7 g/dl (13.0-16.5); Lymphocyte % 20.9 % (19-41); Mean Corpuscular Hgb 29.5 pg (27.0-32.0); Mean Corpuscular Volume 86.7 fL (80-94); Mean Platelet Vol. 10.2 fl (6.2-12.0); Monocyte# 0.56 X10^3/uL; Monocyte% 6.5 % (0-10); Neutrophil # 5.99 X10^3/uL (2.7-7.7); Neutrophil % 69.5 % (47-70); Platelet Count 211 K/mm3 (150-450); RBC Distribution Width CV 13.9 % (11.6-14.6); RBC Distribution Width SD 43.7 fl (35.1-43.9); Red Blood Count 4.65 M/mm3 (4.6-6.2); White Blood Count 8.6 K/mm3 (4.4-11.0)
[2018-08-05 18:42] LABS: POSITIVE COUNT NO; POSITIVE DIFFERENTIAL NO; POSITIVE MORPHOLOGY NO
--- NOTE | 2018-08-05 18:42 | ED.DCSUM_ITS ---
- ER Visit Summary Date of Service: 08/05/18 Chief Complaint: Shortness of breath History of Present Illness: The patient is a 42 M presenting with shortness of breath. He has had bilateral lower extremity swelling. He has had a moist cough. He denies chest pain. Patient falls asleep multiple times during my evaluation and is unable to provide much history. He states that shortness of breath is much worse when he walks around. He is not on home O2. Physical Examination: Vitals are stable. Patient is afebrile. Alert no acute distress. HEENT exam is unremarkable. Neck is supple. Lungs are wheezing bilaterally. Heart is regular tachycardic Abdomen is soft nontender nondistended. Extremities symmetric lower extremity edema Skin is warm and dry. No focal neurologic deficit. Remainder of exam is unremarkable. Emergency Department Course and Treatment: Patient was given albuterol, Atrovent aerosols. Chest x-ray shows mild diffuse hazy increased density of the mid and lower lung song bilaterally suggestive of congestion/edema and/or multifocal pneumonia. Patient has no fever or white count. He was given Lasix IV. EKG is sinus rate of 104. CBC, chemistries unremarkable other than glucose 410. Urinalysis shows glucose. BNP 1813. Lactic acid is normal. Patient states he feels too short of breath to go home. Discussed with the hospitalist for admission. Disposition: Admission Impression: CHF exacerbation This note was generated with [employer] dictation software. It may contain incorrect words, spelling, and punctuation that were not noted in review of the chart p rior to signing ED Disposition - Plan for ED Patient: Referrals: Jesus Sarah [Primary Care Provider] -
[2018-08-05 18:54] LABS: Lactic Acid 1.3 mmol/L (0.4-2.0)
[2018-08-05] MEDS: Albuterol 2.5 MG/3 ML VIAL.NEB. INHALATION ×3 (18:54)
[2018-08-05] MEDS: Ipratropium/Albuterol Sulfate 3 ML AMPUL.NEB INHALATION (18:54)
[2018-08-05 18:55] LABS: Anion Gap 5 (5-15); BUN 10 mg/dL (7-18); BUN/Creat Ratio 11.9 RATIO (10-20); Chloride 103 mmol/L (98-107); Creatinine, Serum 0.84 mg/dL (0.70-1.30); EST Glomerular Filtration Rate 108 mL/min (>60); Est Glom Filt Rate - Afr Amer 130 mL/min (>60); Estimated Creatinine Clearance 128.31 ml/min; Glucose 410 mg/dL (74-106); Potassium 3.7 mmol/L (3.5-5.1); Sodium Level 135 mmol/L (136-145)
[2018-08-05 19:25] LABS: Allen Test POS; Base Excess -1 mmol/L (-2 to +2); Bicarbonate 23.7 mmol/L (22-26); Blood Gas Specimen Type ART; O2 Delivery Device Nasal Can; PO2 47 mmHG (75-100); SITE L Brachial; SO2 84 % (95-99); Time Given 1909; Total Carbon Dioxide 25 mmol/L; pCO2 36.8 mmHg (35-45); pH 7.42 (7.35-7.45)
[2018-08-05 19:41] LABS: Bacteria 0 SEEN /hpf (None Seen); Mucous, Urine 0 SEEN /hpf (<or=2+); Red Blood Cells-Urine 0 SEEN /hpf (0-5); White Blood Cells 0 SEEN /hpf (0-5)
[2018-08-05 20:00] LABS: Color, Urine Yellow (Yellow); Glucose, Dipstick 1000 mg/dl (Normal); Ketone-Dipstick Negative (Negative); Leukocyte Esterase-Dipstick Negative /ul (Negative); Nitrite-Dipstick Negative (Negative); Occult Blood-Urine Negative /ul (Negative); Protein-Dipstick Negative (Negative); Specific Gravity, Urine 1.015 (1.002-1.030); Urine Bilirubin Dipstick Negative (Negative); Urine Clarity Sl. Cloudy (Clear); Urine Urobilinogen Normal (Normal)
[2018-08-05 20:06] LABS: Squamous Epithelial Cells - UA 0-5 SEEN /hpf (0-5)
--- NOTE | 2018-08-05 21:09 | PCM.HP.STD ---
Problem List (1) Acute exacerbation of CHF (congestive heart failure) Status: Acute Qualifiers: Heart failure type: systolic Qualified Code(s): I50.23 - Acute on chronic systolic (congestive) heart failure (2) Polysubstance abuse Status: Chronic Comment: marijuana, cocaine (3) Hypertension Status: Chronic Qualifiers: (4) Ischemic cardiomyopathy Status: Chronic Comment: EF 20% per echo 08/08/2016 History of Present Illness Date of Admission: 08/05/18 Chief Complaint: shortness of breath The patient is a 42 year old M with a significant history of tobacco abuse; CAD s/p stent; HTN; polysubstance abuse; diabetes heart failure and ischemic cardiomyopathy who presented with 2-3-day history of persistent shortness of breath. Associated with his symptoms is productive cough of yellow to green sputum. He complains of bilateral knee and ankle swelling. Patient reports using 3 pillows to sleep. However he is not definite on how long he has been requiring 3 pillows to sleep. Patient was very lethargic and detailed history could not be obtained. Emergency department doctor reported the patient was wheezing. At the emergency department he was found to have severely elevated blood glucose and BNP. Chest x-ray showed bilateral haziness. Past Medical History Past Medical History (Chronic Problems): Chronic Problems (Last Reviewed 07/07/18 @ 09:04 by Benjamin Cerna MD) CAD (coronary artery disease) (Chronic) Severe left ventricular systolic dysfunction (Chronic) Polysubstance abuse (Chronic) marijuana, cocaine 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/28/17) SICD per Dr Berry @ [facility] Nicotine dependence (Chronic) Old myocardial infarction (Chronic) Hypertension (Chronic) History of coronary artery stent placement (Chronic 04/30/18) PCI-MEHRDAD-LAD 08/2014, [id number]-Mid CX and Prox-Mid RCA 03/18/15, Thrombosis of CX stent 03/25/15. MEHRDAD to RCA (2.7 X 16 Promus Synergy) 04/30/2018 Atherosclerosis of coronary artery of algaaciq heart without angina pectoris (Chronic) PCI-MEHRDAD-LAD 08/2014, [id number]-[id number]-Mid CX and Prox-Mid RCA 03/18/15, Thrombosis of CX stent 03/25/15 Ischemic cardiomyopathy (Chronic) EF 20% per echo 08/08/2016 Hyperlipidemia (Chronic) Type 2 diabetes mellitus (Chronic) Chronic systolic CHF (congestive heart failure) (Chronic) Medical History: Medical History (Last Reviewed 08/06/18 @ 08:21 by Benjamin Cerna MD) Severe left ventricular systolic dysfunction (Chronic) I51.9 Polysubstance abuse (Chronic) F19.10 marijuana, cocaine Nicotine dependence (Chronic) F17.200 Old myocardial infarction (Chronic) I25.2 Hypertension (Chronic) I10 Atherosclerosis of coronary artery of alga[place] heart without angina pectoris (Chronic) I25.10 PCI-MEHRDAD-LAD 08/2014, [id number]-Mid CX and Prox-Mid RCA 03/18/15, Thrombosis of CX stent 03/25/15 Ischemic cardiomyopathy (Chronic) I25.5 EF 20% per echo 08/08/2016 Hyperlipidemia (Chronic) E78.5 Type 2 diabetes mellitus (Chronic) E11.9 Chronic systolic CHF (congestive heart failure) (Chronic) I50.22 Depression F32.9 Peripheral neuropathy G62.9 Allergies No Known Allergies Allergy (Verified 07/08/18 23:25) Home Medications: Ambulatory Orders Medication Instructions Recorded Insulin Glargine,Hum.rec.anlog 14 unit SQ DAILY 04/09/17 [Basaglar Kwikpen U-100] carvedilol 6.25 mg tablet 6.25 mg PO BID #60 tab 05/14/18 losartan 25 mg tablet 25 mg PO DAILY #30 tab 05/14/18 magnesium oxide 400 mg (241.3 mg 400 mg PO DAILY #30 tab 05/14/18 magnesium) tablet nitroglycerin 0.4 mg sublingual 0.4 mg SUBLINGUAL Q5M PRN #25 tab 05/14/18 tablet spironolactone 25 mg tablet 25 mg PO DAILY #30 tab 05/14/18 Aspirin E.C. [Ecotrin] 81 mg PO TID 05/26/18 Atorvastatin Calcium 40 mg PO DAILY 05/26/18 hydrOXYzine pamoate capsule 50 mg PO TID PRN PRN #30 capsule 05/26/18 [Vistaril pamoate capsule] Albuterol Aerosols [Ventolin 2.5 mg INHALATION Q2H PRN PRN #30 06/14/18 Aerosols] vial.neb. Clopidogrel Bisulfate [Plavix] 75 mg PO DAILY 07/06/18 Furosemide [Lasix] 80 mg PO BID 07/06/18 Insulin Aspart [Novolog Flexpen] units SC ACHS 07/06/18 Isosorbide Mononitrate [Isosorbide 30 mg PO DAILY 07/06/18 Mononitrate ER] Potassium Chloride [K-Tab ER] 20 meq PO DAILY 07/06/18 Guaifenesin [Mucinex] 1,200 mg PO BID #30 tablet 07/08/18 Surgical History: Surgical History (Last Reviewed 08/06/18 @ 08:21 by Benjamin Cerna MD) 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) Onset Date: 06/28/[address] Berry @ [facility] History of coronary artery stent placement (Chronic) Onset Date: 04/30/18 Z95.5 PCI-MEHRDAD-LAD 08/2014, RIZ-LUG-Ludy-Mid CX and Prox-Mid RCA 03/18/15, Thrombosis of CX stent 03/25/15. MEHRDAD to RCA (2.7 X 16 Promus Synergy) 04/30/2018 History of appendectomy Z90.49 Surgical History: - - Cardiac stent August 2014 Lives: With Family Smoking Status: Current every day smoker Tobacco Use: Cigarettes Drugs: Cocaine, Marijuana - *Family History Paternal Family History: Family History (Last Reviewed 08/06/18 @ 08:21 by Benjamin Cerna MD) Mother CAD (coronary artery disease) Diabetes Hypertension Myocardial infarction Father CAD (coronary artery disease) Diabetes Hypertension Myocardial infarction Brother Hypertension History Items: Diabetes, High Cholesterol, Heart Disease, Hypertension Maternal Family History: Family History (Last Reviewed 08/06/18 @ 08:21 by Benjamin Cerna MD) Mother CAD (coronary artery disease) Diabetes Hypertension Myocardial infarction Father CAD (coronary artery disease) Diabetes Hypertension Myocardial infarction Brother Hypertension History Items: Diabetes, High Cholesterol, Heart Disease, Hypertension Review of Systems Unable to obtain accurate/complete ROS d/t: Severe lethargy VTE Information - Inpt Only VTE Present on Admission: No VTE Mechan Device Prophylaxis: None VTE Pharm Prophylaxis ordered?: Yes - Physical Exam General: Lethargic HEENT: Atraumatic, Normocephalic Neck: Supple, Trachea Midline Lungs: Diminished Cardiovascular: Regular rate, No murmurs Abdomen: Bowel Sounds Present, Soft, Non Tender Extremities: Capillary Refill Less than 3 Seconds, Edema - Bilateral feet Skin: No rashes, No breakdown Musculoskeletal: Tenderness - Bilateral feet Neurological: - - Lethargic Psych/Mental Status: - - Lethargic Vital Signs Temp Pulse Resp BP Pulse Ox 98.6 F 101 H 20 H 139/95 H 99 08/05/18 20:00 08/05/18 20:00 08/05/18 20:00 08/05/18 20:00 08/05/18 20:00 Oxygen Flow Rate (L/min) 2 Oxygen Delivery Method Room Air Weight: 88.451 kg Body Mass Index (BMI) 26.4 Finger Stick Blood Glucose 345 Microbiology Past 72 Hours 08/05/18 18:38 Influenza Types A,B Direct FA (FAREED) - Final Mucosa - Nasopharyngeal Laboratory Tests Past 24 Hrs 08/05/18 08/05/18 08/05/18 18:10 18:10 18:10 WBC 8.6 RBC 4.65 Hgb 13.7 Hct 40.3 MCV 86.7 MCH 29.5 MCHC 34.0 RDW 13.9 RDW Differential 43.7 Plt Count 211 MPV 10.2 Immature Gran % (Auto) 0.100 Neut % (Auto) 69.5 Lymph % (Auto) 20.9 Weld % (Auto) 6.5 Eos % (Auto) 2.8 Baso % (Auto) 0.2 Absolute Neuts (auto) 6.0 Absolute Lymphs (auto) 1.80 Total Counted Not Reportable Specimen Type Sample Site pH Bicarbonate Actual POC Total CO2 Base Excess O2 Saturation ABG pCO2 ABG pO2 Sami Test O2 Delivery Device Liter Flow Blood Gas Notified Whom Blood Gas Notified Time Sodium 135 L Potassium 3.7 Chloride 103 Carbon Dioxide 27.0 Anion Gap 5 BUN 10 Creatinine 0.84 Estim Creat Clear Calc 128.31 Est GFR (MDRD) Af Amer 130 Est GFR (MDRD) Non-Af 108 BUN/Creatinine Ratio 11.9 Glucose 410 H Lactic Acid 1.3 Calcium 8.0 L Troponin I 0.038 B-Natriuretic Peptide Urine Color Urine Clarity Urine pH Ur Specific Newton Urine Protein Urine Glucose (UA) Urine Ketones Urine Occult Blood Urine Nitrite Urine Bilirubin Urine Urobilinogen Ur Leukocyte Esterase Urine RBC Urine WBC Ur Squamous Epith Cells Urine Bacteria Urine Mucus 08/05/18 08/05/18 08/05/18 18:10 19:17 19:30 WBC RBC Hgb Hct MCV MCH MCHC RDW RDW Differential Plt Count MPV Immature Gran % (Auto) Neut % (Auto) Lymph % (Auto) Weld % (Auto) Eos % (Auto) Baso % (Auto) Absolute Neuts (auto) Absolute Lymphs (auto) Total Counted Specimen Type ART Sample Site L Brachial pH 7.42 Bicarbonate Actual 23.7 POC Total CO2 25 Base Excess -1 O2 Saturation 84 L ABG pCO2 36.8 ABG pO2 47 L Sami Test POS O2 Delivery Device Nasal Can Liter Flow 2.0 Blood Gas Notified Whom ED Blood Gas Notified Time 190 Sodium Potassium Chloride Carbon Dioxide Anion Gap BUN Creatinine Estim Creat Clear Calc Est GFR (MDRD) Af Amer Est GFR (MDRD) Non-Af BUN/Creatinine Ratio Glucose Lactic Acid Calcium Troponin I B-Natriuretic Peptide 1813.0 H Urine Color Yellow Urine Clarity Sl. Cloudy Urine pH 6.0 Ur Specific Newton 1.015 Urine Protein Negative Urine Glucose (UA) 1000 H Urine Ketones Negative Urine Occult Blood Negative Urine Nitrite Negative Urine Bilirubin Negative Urine Urobilinogen Normal Ur Leukocyte Esterase Negative Urine RBC 0 SEEN Urine WBC 0 SEEN Ur Squamous Epith Cells 0-5 SEEN Urine Bacteria 0 SEEN Urine Mucus 0 SEEN POC Glucose 08/05/18 18:07 POC Glucose 415 H Assessment/Plan All Active Problems (Last Reviewed 07/07/18 @ 09:04 by Benjamin Cerna MD) Acute exacerbation of CHF (congestive heart failure) (Acute) Asthma exacerbation (Acute) Acute respiratory failure with hypoxia (Acute) The patient is a 42 year old M with a significant history of tobacco abuse; CAD s/p stent; HTN; polysubstance abuse; diabetes heart failure and ischemic cardiomyopathy who presented with 2-3-day history of persistent shortness of breath; bilateral lower extremity swelling and found to have elevated BNP and radiographic evidence of diffuse haziness consistent with acute exacerbation of his underlying systolic heart failure. Acute exacerbation of systolic and diastolic heart failure Patient with elevated BNP of 1813. Review of records show that this is highest BNP so far. His BNP on 07/06/2018 was 1439.9 Chest x-ray showed diffuse hazy increased density. Chest x-ray was independently reviewed. I agree with radiologist interpretation. Review of old records: Echocardiogram on 07/07/2018 among others showed estimated ejection fraction of 15% with stage III diastolic dysfunction; moderate severe tricuspid valve insufficiency; pulmonary artery systolic pressure 65; ICD or pacer leads identified within the right ventricle On Lasix 80 mg p.o. twice daily at home which I am uncertain whether he is compliant due to his extreme lethargy on presentation... We will escalate Lasix to 80 mg IV twice daily. We will increase his home potassium supplementation from 20 mEq daily to 40 mEq. Daily weights Fluid restriction of 1500 mg daily Strict intake and output. 2 g cardiac diet Continue guideline medications of losartan and Aldactone. Coreg continued. Imdur continued To receive breathing treatment at emergency department. Will not continue breathing treatment at this time. CAD status post stent/ischemic cardiomyopathy Continue heart failure medication as above Dual antiplatelet therapy of aspirin and Plavix continued Diabetes mellitus On presentation his blood glucose was not within goal. 8 units of short acting insulin x1 given Lantus 14 units daily continued Accu-Chek q. before meals at bedtime and 2 AM with correction scale insulin. Chest pain While on the floor patient complained of chest pain that eventually improved.. EKG remained essentially unchanged Troponin was trended and it remained negative. Nitroglycerin as needed ordered. Polysubstance abuse Patient admits to cocaine and marijuana use. Patient was very lethargic on admission. We will get drug urinary screen. Nurse reported holding p.o. medications because of extreme lethargy. Caution narcotic administration while inpatient. DVT Prophylaxis Subcutaneous heparin ordered. Code Visit Inpatient E&M: [id number] Init Hosp L3
[2018-08-05] MEDS: Insulin Lispro 100 UNIT/ML INSULN.PEN 8 UNIT SC (21:10)
[2018-08-05] MEDS: Furosemide 100 MG/10 ML Vial 80 MG IV (21:11)
--- NOTE | 2018-08-05 21:23 | HP.PCM_ITS ---
Problem List (1) Acute exacerbation of CHF (congestive heart failure) Status: Acute Qualifiers: Heart failure type: systolic Qualified Code(s): I50.23 - Acute on chronic systolic (congestive) heart failure (2) Polysubstance abuse Status: Chronic Comment: marijuana, cocaine (3) Hypertension Status: Chronic Qualifiers: (4) Ischemic cardiomyopathy Status: Chronic Comment: EF 20% per echo 08/08/2016 History of Present Illness Date of Admission: 08/05/18 Chief Complaint: shortness of breath The patient is a 42 year old M with a significant history of tobacco abuse; CAD s/p stent; HTN; polysubstance abuse; diabetes heart failure and ischemic cardiomyopathy who presented with 2-3-day history of persistent shortness of breath. Associated with his symptoms is productive cough of yellow to green sputum. He complains of bilateral knee and ankle swelling. Patient reports using 3 pillows to sleep. However he is not definite on how long he has been requiring 3 pillows to sleep. Patient was very lethargic and detailed history could not be obtained. Emergency department doctor reported the patient was wheezing. At the emergency department he was found to have severely elevated blood glucose and BNP. Chest x-ray showed bilateral haziness. Past Medical History Past Medical History (Chronic Problems): Chronic Problems (Last Reviewed 07/07/18 @ 09:04 by Benjamin Cerna MD) CAD (coronary artery disease) (Chronic) Severe left ventricular systolic dysfunction (Chronic) Polysubstance abuse (Chronic) marijuana, cocaine 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/28/17) SICD per Dr Berry @ [facility] Nicotine dependence (Chronic) Old myocardial infarction (Chronic) Hypertension (Chronic) History of coronary artery stent placement (Chronic 04/30/18) PCI-MEHRDAD-LAD 08/2014, [id number]-TVR-Fius-Mid CX and Prox-Mid RCA 03/18/15, Thrombosis of CX stent 03/25/15. MEHRDAD to RCA (2.7 X 16 Promus Synergy) 04/30/2018 Atherosclerosis of coronary artery of [place] heart without angina pectoris (Chronic) PCI-MEHRDAD-LAD 08/2014, [id number]-DOI-Pfhm-Mid CX and Prox-Mid RCA 03/18/15, Thrombosis of CX stent 03/25/15 Ischemic cardiomyopathy (Chronic) EF 20% per echo 08/08/2016 Hyperlipidemia (Chronic) Type 2 diabetes mellitus (Chronic) Chronic systolic CHF (congestive heart failure) (Chronic) Medical History: Medical History (Last Reviewed 08/06/18 @ 08:21 by Benjamin Cerna MD) Severe left ventricular systolic dysfunction (Chronic) I51.9 Polysubstance abuse (Chronic) F19.10 marijuana, cocaine Nicotine dependence (Chronic) F17.200 Old myocardial infarction (Chronic) I25.2 Hypertension (Chronic) I10 Atherosclerosis of coronary artery of [place] heart without angina pectoris (Ch ronic) I25.10 PCI-MEHRDAD-LAD 08/2014, [id number]-Uivi-Mid CX and Prox-Mid RCA 03/18/15, Thrombosis of CX stent 03/25/15 Ischemic cardiomyopathy (Chronic) I25.5 EF 20% per echo 08/08/2016 Hyperlipidemia (Chronic) E78.5 Type 2 diabetes mellitus (Chronic) E11.9 Chronic systolic CHF (congestive heart failure) (Chronic) I50.22 Depression F32.9 Peripheral neuropathy G62.9 Allergies No Known Allergies Allergy (Verified 07/08/18 23:25) Home Medications: Ambulatory Orders Medication Instructions Recorded Insulin Glargine,Hum.rec.anlog 14 unit SQ DAILY 04/09/17 [Basaglar Cristel U-100] carvedilol 6.25 mg tablet 6.25 mg PO BID #60 tab 05/14/18 losartan 25 mg tablet 25 mg PO DAILY #30 tab 05/14/18 magnesium oxide 400 mg (241.3 mg 400 mg PO DAILY #30 tab 05/14/18 magnesium) tablet nitroglycerin 0.4 mg sublingual 0.4 mg SUBLINGUAL Q5M PRN #25 tab 05/14/18 tablet spironolactone 25 mg tablet 25 mg PO DAILY #30 tab 05/14/18 Aspirin E.C. [Ecotrin] 81 mg PO TID 05/26/18 Atorvastatin Calcium 40 mg PO DAILY 05/26/18 hydrOXYzine pamoate capsule 50 mg PO TID PRN PRN #30 capsule 05/26/18 [Vistaril pamoate capsule] Albuterol Aerosols [Ventolin 2.5 mg INHALATION Q2H PRN PRN #30 06/14/18 Aerosols] vial.neb. Clopidogrel Bisulfate [Plavix] 75 mg PO DAILY 07/06/18 Furosemide [Lasix] 80 mg PO BID 07/06/18 Insulin Aspart [Novolog Flexpen] units SC ACHS 07/06/18 Isosorbide Mononitrate [Isosorbide 30 mg PO DAILY 07/06/18 Mononitrate ER] Potassium Chloride [K-Tab ER] 20 meq PO DAILY 07/06/18 Guaifenesin [Mucinex] 1,200 mg PO BID #30 tablet 07/08/18 Surgical History: Surgical History (Last Reviewed 08/06/18 @ 08:21 by Benjamin Cerna MD) 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) Onset Date: 06/28/[address] Berry @ [facility] History of coronary artery stent placement (Chronic) Onset Date: 04/30/18 Z9 5.5 PCI-MEHRDAD-LAD 08/2014, DJT-SJE-Hhoa-Mid CX and Prox-Mid RCA 03/18/15, Thrombosis of CX stent 03/25/15. MEHRDAD to RCA (2.7 X 16 Promus Synergy) 04/30/2018 History of appendectomy Z90.49 Surgical History: - - Cardiac stent August 2014 Lives: With Family Smoking Status: Current every day smoker Tobacco Use: Cigarettes Drugs: Cocaine, Marijuana - *Family History Paternal Family History: Family History (Last Reviewed 08/06/18 @ 08:21 by Benjamin Cerna MD) Mother CAD (coronary artery disease) Diabetes Hypertension Myocardial infarction Father CAD (coronary artery disease) Diabetes Hypertension Myocardial infarction Brother Hypertension History Items: Diabetes, High Cholesterol, Heart Disease, Hypertension Maternal Family History: Family History (Last Reviewed 08/06/18 @ 08:21 by Benjamin Cerna MD) Mother CAD (coronary artery disease) Diabetes Hypertension Myocardial infarction Father CAD (coronary artery disease) Diabetes Hypertension Myocardial infarction Brother Hypertension History Items: Diabetes, High Cholesterol, Heart Disease, Hypertension Review of Systems Unable to obtain accurate/complete ROS d/t: Severe lethargy VTE Information - Inpt Only VTE Present on Admission: No VTE Mechan Device Prophylaxis: None VTE Pharm Prophylaxis ordered?: Yes - Physical Exam General: Lethargic HEENT: Atraumatic, Normocephalic Neck: Supple, Trachea Midline Lungs: Diminished Cardiovascular: Regular rate, No murmurs Abdomen: Bowel Sounds Present, Soft, Non Tender Extremities: Capillary Refill Less than 3 Seconds, Edema - Bilateral feet Skin: No rashes, No breakdown Musculoskeletal: Tenderness - Bilateral feet Neurological: - - Lethargic Psych/Mental Status: - - Lethargic Vital Signs Temp Pulse Resp BP Pulse Ox 98.6 F 101 H 20 H 139/95 H 99 08/05/18 20:00 08/05/18 20:00 08/05/18 20:00 08/05/18 20:00 08/05/18 20:00 Oxygen Flow Rate (L/min) 2 Oxygen Delivery Method Room Air Weight: 88.451 kg Body Mass Index (BMI) 26.4 Finger Stick Blood Glucose 345 Microbiology Past 72 Hours 08/05/18 18:38 Influenza Types A,B Direct FA (FAREED) - Final Mucosa - Nasopharyngeal Laboratory Tests Past 24 Hrs 08/05/18 08/05/18 08/05/18 18:10 18:10 18:10 WBC 8.6 RBC 4.65 Hgb 13.7 Hct 40.3 MCV 86.7 MCH 29.5 MCHC 34.0 RDW 13.9 RDW Differential 43.7 Plt Count 211 MPV 10.2 Immature Gran % (Auto) 0.100 Neut % (Auto) 69.5 Lymph % (Auto) 20.9 [place] % (Auto) 6.5 Eos % (Auto) 2.8 Baso % (Auto) 0.2 Absolute Neuts (auto) 6.0 Absolute Lymphs (auto) 1.80 Total Counted Not Reportable Specimen Type Sample Site pH Bicarbonate Actual POC Total CO2 Base Excess O2 Saturation ABG pCO2 ABG pO2 Sami Test O2 Delivery Device Liter Flow Blood Gas Notified Whom Blood Gas Notified Time Sodium 135 L Potassium 3.7 Chloride 103 Carbon Dioxide 27.0 Anion Gap 5 BUN 10 Creatinine 0.84 Estim Creat Clear Calc 128.31 Est GFR (MDRD) Af Amer 130 Est GFR (MDRD) Non-Af 108 BUN/Creatinine Ratio 11.9 Glucose 410 H Lactic Acid 1.3 Calcium 8.0 L Troponin I 0.038 B-Natriuretic Peptide Urine Color Urine Clarity Urine pH Ur Specific [place] Urine Protein Urine Glucose (UA) Urine Ketones Urine Occult Blood Urine Nitrite Urine Bilirubin Urine Urobilinogen Ur Leukocyte Esterase Urine RBC Urine WBC Ur Squamous Epith Cells Urine Bacteria Urine Mucus 08/05/18 08/05/18 08/05/18 18:10 19:17 19:30 WBC RBC Hgb Hct MCV MCH MCHC RDW RDW Differential Plt Count MPV Immature Gran % (Auto) Neut % (Auto) Lymph % (Auto) [place] % (Auto) Eos % (Auto) Baso % (Auto) Absolute Neuts (auto) Absolute Lymphs (auto) Total Counted Specimen Type ART Sample Site L Brachial pH 7.42 Bicarbonate Actual 23.7 POC Total CO2 25 Base Excess -1 O2 Saturation 84 L ABG pCO2 36.8 ABG pO2 47 L Sami Test POS O2 Delivery Device Nasal Can Liter Flow 2.0 Blood Gas Notified Whom ED Blood Gas Notified Time 190 Sodium Potassium Chloride Carbon Dioxide Anion Gap BUN Creatinine Estim Creat Clear Calc Est GFR (MDRD) Af Amer Est GFR (MDRD) Non-Af BUN/Creatinine Ratio Glucose Lactic Acid Calcium Troponin I B-Natriuretic Peptide 1813.0 H Urine Color Yellow Urine Clarity Sl. Cloudy Urine pH 6.0 Ur Specific [place] 1.015 Urine Protein Negative Urine Glucose (UA) 1000 H Urine Ketones Negative Urine Occult Blood Negative Urine Nitrite Negative Urine Bilirubin Negative Urine Urobilinogen Normal Ur Leukocyte Esterase Negative Urine RBC 0 SEEN Urine WBC 0 SEEN Ur Squamous Epith Cells 0-5 SEEN Urine Bacteria 0 SEEN Urine Mucus 0 SEEN POC Glucose 08/05/18 18:07 POC Glucose 415 H Assessment/Plan All Active Problems (Last Reviewed 07/07/18 @ 09:04 by Benjamin Cerna MD) Acute exacerbation of CHF (congestive heart failure) (Acute) Asthma exacerbation (Acute) Acute respiratory failure with hypoxia (Acute) The patient is a 42 year old M with a significant history of tobacco abuse; CAD s/p stent; HTN; polysubstance abuse; diabetes heart failure and ischemic cardiom yopathy who presented with 2-3-day history of persistent shortness of breath; bilateral lower extremity swelling and found to have elevated BNP and radiographic evidence of diffuse haziness consistent with acute exacerbation of his underlying systolic heart failure. Acute exacerbation of systolic and diastolic heart failure Patient with elevated BNP of 1813. Review of records show that this is highest BNP so far. His BNP on 07/06/2018 was 1439.9 Chest x-ray showed diffuse hazy increased density. Chest x-ray was independently reviewed. I agree with radiologist interpretation. Review of old records: Echocardiogram on 07/07/2018 among others showed estimated ejection fraction of 15% with stage III diastolic dysfunction; moderate severe tricuspid valve insufficiency; pulmonary artery systolic pressure 65; ICD or pacer leads identified within the right ventricle On Lasix 80 mg p.o. twice daily at home which I am uncertain whether he is compliant due to his extreme lethargy on presentation... We will escalate Lasix to 80 mg IV twice daily. We will increase his home potassium supplementation from 20 mEq daily to 40 mEq. Daily weights Fluid restriction of 1500 mg daily Strict intake and output. 2 g cardiac diet Continue guideline medications of losartan and Aldactone. Coreg continued. Imdur continued To receive breathing treatment at emergency department. Will not continue breathing treatment at this time. CAD status post stent/ischemic cardiomyopathy Continue heart failure medication as above Dual antiplatelet therapy of aspirin and Plavix continued Diabetes mellitus On presentation his blood glucose was not within goal. 8 units of short acting insulin x1 given Lantus 14 units daily continued Accu-Chek q. before meals at bedtime and 2 AM with correction scale insulin. Chest pain While on the floor patient complained of chest pain that eventually improved.. EKG remained essentially unchanged Troponin was trended and it remained negative. Nitroglycerin as needed ordered. Polysubstance abuse Patient admits to cocaine and marijuana use. Patient was very lethargic on admission. We will get drug urinary screen. Nurse reported holding p.o. medications because of extreme lethargy. Caution narcotic administration while inpatient. DVT Prophylaxis Subcutaneous heparin ordered. Code Visit Inpatient E&M: 88327 In Hosp L3
--- NOTE | 2018-08-05 22:50 | NURSING ---
CALLED RESP. FOR STAT EKG, PATIENT COMPLAINING OF CHEST PAIN ON LEFT SIDE
--- NOTE | 2018-08-05 22:57 | EKG12_ITS ---
Test Reason : SOB Blood Pressure : / mmHG Vent. Rate : 104 BPM Atrial Rate : 104 BPM P-R Int : 160 ms QRS Dur : 094 ms QT Int : 364 ms P-R-T Axes : 051 -61 085 degrees QTc Int : 478 ms Sinus tachycardia Possible Left atrial enlargement Left anterior fascicular block Anterior infarct , age undetermined Abnormal ECG Confirmed by KATRINA MCKEON, SAMANTHA ([id number]), department editor PANCHITO SUTTON ([id number]) on 08/08/2018 1:08:47 PM Referred By: Confirmed By:SAMANTHA HERNDON MD
[2018-08-05 23:27] LABS: Albumin, Serum 2.7 g/dL (3.2-5.0)
--- NOTE | 2018-08-05 23:38 | NURSING ---
Unsure of when pt last PNA shot was.
--- NOTE | 2018-08-05 23:55 | NURSING ---
Admission difficult to complete as pt is very lethargic at this time. Med rec not done at this time d/t pt lethargy.
[2018-08-06] VITALS (14 sets, daily range): BP systolic 98–139; BP diastolic 51–97; PULSE 86–98; RESP 18–24; TEMP 36.4–36.6; O2SAT 92–99
[2018-08-06 01:21] LABS: Bedside Glucose 103 mg/dL (70-110)
[2018-08-06] MEDS: Insulin Lispro 100 UNIT/ML INSULN.PEN SQ ×5 (02:23→21:16)
[2018-08-06 02:31] LABS: Bedside Glucose 150 mg/dL (70-110)
[2018-08-06 05:39] LABS: Hematocrit 42.3 % (40-54); Hemoglobin 14.9 g/dl (13.0-16.5); Mean Corp Hgb Conc 35.2 g/gl (32-36); Mean Corpuscular Hgb 29.4 pg (27.0-32.0); Mean Corpuscular Volume 83.6 fL (80-94); Mean Platelet Vol. 10.3 fl (6.2-12.0); Platelet Count 232 K/mm3 (150-450); RBC Distribution Width CV 13.3 % (11.6-14.6); RBC Distribution Width SD 40.5 fl (35.1-43.9); Red Blood Count 5.06 M/mm3 (4.6-6.2); White Blood Count 9.7 K/mm3 (4.4-11.0)
[2018-08-06 05:46] LABS: Scan Indicated on CBC? Y/N NO
[2018-08-06 05:54] LABS: Anion Gap 7 (5-15); BUN 10 mg/dL (7-18); BUN/Creat Ratio 14.3 RATIO (10-20); Calcium,Total 8.3 mg/dL (8.5-10.1); Chloride 102 mmol/L (98-107); EST Glomerular Filtration Rate 133 mL/min (>60); Est Glom Filt Rate - Afr Amer 161 mL/min (>60); Estimated Creatinine Clearance 153.97 ml/min; Glucose 257 mg/dL (74-106); Potassium 3.2 mmol/L (3.5-5.1); Sodium Level 137 mmol/L (136-145)
[2018-08-06 07:00] LABS: Bedside Glucose 244 mg/dL (70-110)
[2018-08-06] MEDS: Isosorbide Mononitrate 30 MG Tablet PO (08:43)
[2018-08-06] MEDS: Carvedilol 6.25 MG Tablet PO ×2 (08:44→17:21)
[2018-08-06] MEDS: Aspirin E.C. 81 MG Tablet PO ×3 (08:44→17:21)
[2018-08-06] MEDS: guaiFENesin 1,200 MG Tablet 1200 MG PO ×2 (08:44→21:17)
[2018-08-06] MEDS: Magnesium Oxide 400 MG Tablet PO (08:44)
[2018-08-06] MEDS: Clopidogrel Bisulfate 75 MG Tablet PO (08:44)
[2018-08-06] MEDS: Losartan Potassium 25 MG Tablet PO (08:45)
[2018-08-06] MEDS: Spironolactone 25 MG Tablet PO (08:50)
[2018-08-06] MEDS: Enoxaparin 40 MG/0.4 ML Syringe SC (08:51)
[2018-08-06] MEDS: 0.9% NaCl Peripheral Flush Adult/Peds IV ×2 (08:54→18:20)
[2018-08-06] MEDS: Furosemide 100 MG/10 ML Vial 80 MG IV ×2 (08:54→18:20)
--- NOTE | 2018-08-06 10:51 | PCM.PROGNOTE ---
<Alfredo Gifford - Last Filed: 08/06/18 10:51> Subjective: Pt has had good improvement in his LE edema. He does remain SOB and on O2. He does not use O2 outside the hospital. No CP/heaviness/tightness. No cough. No fever/chills. He will not confirm with me if he was taking his home lasix. He is somewhat lethargic and repeatedly closing his eyes and falling asleep. - Physical Exam General: Alert, Oriented x3, Cooperative, Lethargic HEENT: Atraumatic, PERRLA, EOMI, Normocephalic Neck: Supple, No JVD, Negative Carotid Bruits Lungs: Diminished, Rales Cardiovascular: Regular rate, No murmurs Abdomen: Bowel Sounds Present, Soft, Non Tender Extremities: No edema, Capillary Refill Less than 3 Seconds Skin: No rashes, No breakdown Musculoskeletal: No Tenderness to Palpation of Joints or Extremities Neurological: Cranial nerves II-XII grossly intact Psych/Mental Status: Normal Affect, Appropriate, Alert and oriented to time, place, person, mood and affect Vital Signs Temp Pulse Resp BP Pulse Ox 97.6 F L 89 18 108/73 92 08/06/18 10:32 08/06/18 10:32 08/06/18 10:32 08/06/18 10:32 08/06/18 10:32 Oxygen Flow Rate (L/min) 2 Oxygen Delivery Method Nasal Cannula Weight: 195 lb 5.273 oz Body Mass Index (BMI) 26.4 Finger Stick Blood Glucose 345 Intake and Output for Last 24 Hours 08/04/18 08/05/18 08/06/18 23:59 23:59 23:59 Intake Total 0 / 0 237 / 237 Output Total 1565 / 1565 515 / 515 Balance -1565 / -1565 -278 / -278 Microbiology Past 72 Hours 08/05/18 18:38 Influenza Types A,B Direct FA (FAREED) - Final Mucosa - Nasopharyngeal Laboratory Tests Past 24 Hrs 08/05/18 08/05/18 08/05/18 18:10 18:10 18:10 WBC 8.6 RBC 4.65 Hgb 13.7 Hct 40.3 MCV 86.7 MCH 29.5 MCHC 34.0 RDW 13.9 RDW Differential 43.7 Plt Count 211 MPV 10.2 Immature Gran % (Auto) 0.100 Neut % (Auto) 69.5 Lymph % (Auto) 20.9 [place] % (Auto) 6.5 Eos % (Auto) 2.8 Baso % (Auto) 0.2 Absolute Neuts (auto) 6.0 Absolute Lymphs (auto) 1.80 Total Counted Not Reportable Specimen Type Sample Site pH Bicarbonate Actual POC Total CO2 Base Excess O2 Saturation ABG pCO2 ABG pO2 Sami Test O2 Delivery Device Liter Flow Blood Gas Notified Whom Blood Gas Notified Time Sodium 135 L Potassium 3.7 Chloride 103 Carbon Dioxide 27.0 Anion Gap 5 BUN 10 Creatinine 0.84 Estim Creat Clear Calc 128.31 Est GFR (MDRD) Af Amer 130 Est GFR (MDRD) Non-Af 108 BUN/Creatinine Ratio 11.9 Glucose 410 H Lactic Acid 1.3 Calcium 8.0 L Troponin I 0.038 B-Natriuretic Peptide Albumin Urine Color Urine Clarity Urine pH Ur Specific [place] Urine Protein Urine Glucose (UA) Urine Ketones Urine Occult Blood Urine Nitrite Urine Bilirubin Urine Urobilinogen Ur Leukocyte Esterase Urine RBC Urine WBC Ur Squamous Epith Cells Urine Bacteria Urine Mucus Urine Opiates Screen Urine Methadone Screen Ur Barbiturates Screen Ur Phencyclidine Scrn Ur Amphetamines Screen U Methamphetamin-MDMA U Benzodiazepines Scrn Urine Cocaine Screen U Cannabinoids Screen Ur Drug Screen Comment 08/05/18 08/05/18 08/05/18 18:10 18:10 19:17 WBC RBC Hgb Hct MCV MCH MCHC RDW RDW Differential Plt Count MPV Immature Gran % (Auto) Neut % (Auto) Lymph % (Auto) [place] % (Auto) Eos % (Auto) Baso % (Auto) Absolute Neuts (auto) Absolute Lymphs (auto) Total Counted Specimen Type ART Sample Site L Brachial pH 7.42 Bicarbonate Actual 23.7 POC Total CO2 25 Base Excess -1 O2 Saturation 84 L ABG pCO2 36.8 ABG pO2 47 L Sami Test POS O2 Delivery Device Nasal Can Liter Flow 2.0 Blood Gas Notified Whom ED Blood Gas Notified Time 190 Sodium Potassium Chloride Carbon Dioxide Anion Gap BUN Creatinine Estim Creat Clear Calc Est GFR (MDRD) Af Amer Est GFR (MDRD) Non-Af BUN/Creatinine Ratio Glucose Lactic Acid Calcium Troponin I B-Natriuretic Peptide 1813.0 H Albumin 2.7 L Urine Color Urine Clarity Urine pH Ur Specific [place] Urine Protein Urine Glucose (UA) Urine Ketones Urine Occult Blood Urine Nitrite Urine Bilirubin Urine Urobilinogen Ur Leukocyte Esterase Urine RBC Urine WBC Ur Squamous Epith Cells Urine Bacteria Urine Mucus Urine Opiates Screen Urine Methadone Screen Ur Barbiturates Screen Ur Phencyclidine Scrn Ur Amphetamines Screen U Methamphetamin-MDMA U Benzodiazepines Scrn Urine Cocaine Screen U Cannabinoids Screen Ur Drug Screen Comment 08/05/18 08/05/18 08/06/18 19:30 23:30 02:35 WBC RBC Hgb Hct MCV MCH MCHC RDW RDW Differential Plt Count MPV Immature Gran % (Auto) Neut % (Auto) Lymph % (Auto) [place] % (Auto) Eos % (Auto) Baso % (Auto) Absolute Neuts (auto) Absolute Lymphs (auto) Total Counted Specimen Type Sample Site pH Bicarbonate Actual POC Total CO2 Base Excess O2 Saturation ABG pCO2 ABG pO2 Sami Test O2 Delivery Device Liter Flow Blood Gas Notified Whom Blood Gas Notified Time Sodium Potassium Chloride Carbon Dioxide Anion Gap BUN Creatinine Estim Creat Clear Calc Est GFR (MDRD) Af Amer Est GFR (MDRD) Non-Af BUN/Creatinine Ratio Glucose Lactic Acid Calcium Troponin I 0.029 0.022 B-Natriuretic Peptide Albumin Urine Color Yellow Urine Clarity Sl. Cloudy Urine pH 6.0 Ur Specific [place] 1.015 Urine Protein Negative Urine Glucose (UA) 1000 H Urine Ketones Negative Urine Occult Blood Negative Urine Nitrite Negative Urine Bilirubin Negative Urine Urobilinogen Normal Ur Leukocyte Esterase Negative Urine RBC 0 SEEN Urine WBC 0 SEEN Ur Squamous Epith Cells 0-5 SEEN Urine Bacteria 0 SEEN Urine Mucus 0 SEEN Urine Opiates Screen Urine Methadone Screen Ur Barbiturates Screen Ur Phencyclidine Scrn Ur Amphetamines Screen U Methamphetamin-MDMA U Benzodiazepines Scrn Urine Cocaine Screen U Cannabinoids Screen Ur Drug Screen Comment 08/06/18 08/06/18 08/06/18 05:14 05:14 10:25 WBC 9.7 RBC 5.06 Hgb 14.9 Hct 42.3 MCV 83.6 MCH 29.4 MCHC 35.2 RDW 13.3 RDW Differential 40.5 Plt Count 232 MPV 10.3 Immature Gran % (Auto) Neut % (Auto) Lymph % (Auto) [place] % (Auto) Eos % (Auto) Baso % (Auto) Absolute Neuts (auto) Absolute Lymphs (auto) Total Counted Specimen Type Sample Site pH Bicarbonate Actual POC Total CO2 Base Excess O2 Saturation ABG pCO2 ABG pO2 Sami Test O2 Delivery Device Liter Flow Blood Gas Notified Whom Blood Gas Notified Time Sodium 137 Potassium 3.2 L Chloride 102 Carbon Dioxide 28.0 Anion Gap 7 BUN 10 Creatinine 0.70 Estim Creat Clear Calc 153.97 Est GFR (MDRD) Af Amer 161 Est GFR (MDRD) Non-Af 133 BUN/Creatinine Ratio 14.3 Glucose 257 H Lactic Acid Calcium 8.3 L Troponin I 0.023 B-Natriuretic Peptide Albumin Urine Color Urine Clarity Urine pH Ur Specific [place] Urine Protein Urine Glucose (UA) Urine Ketones Urine Occult Blood Urine Nitrite Urine Bilirubin Urine Urobilinogen Ur Leukocyte Esterase Urine RBC Urine WBC Ur Squamous Epith Cells Urine Bacteria Urine Mucus Urine Opiates Screen Pending Urine Methadone Screen Pending Ur Barbiturates Screen Pending Ur Phencyclidine Scrn Pending Ur Amphetamines Screen Pending U Methamphetamin-MDMA Pending U Benzodiazepines Scrn Pending Urine Cocaine Screen Pending U Cannabinoids Screen Pending Ur Drug Screen Comment POC Glucose 08/06/18 08/06/18 08/05/18 06:56 02:19 23:49 POC Glucose 244 H 150 H 103 08/05/18 18:07 POC Glucose 415 H Medical Necessity - Tobacco Use Smoking Status: Current every day smoker Tobacco Use: Cigarettes Assessment/Plan All Active Problems (Last Reviewed 08/06/18 @ 08:21 by Benjamin Cerna MD) Acute exacerbation of CHF (congestive heart failure) (Acute) Asthma exacerbation (Acute) Acute respiratory failure with hypoxia (Acute) 1. Acute on chronic systolic CHF exacerbation - complicated by hx of ischemic CM, moderate pulmonary HTN - LE edema. improved. Continue lasix, aldactone, replace K+. Check Mag. -AICD in place. - Last echo 07/07/2018: EF 15%, stage 3 diastolic dysfunction, hypokinesis, 3+ TVI, PASP 65 -Troponins negative. 2. Ventricular thrombus 2.1 cm x 1.5 cm on echo about 1 month prior. - I discussed this with the patients design engineer Dr. Ramirez today who advised that with the patients drug abuse and noncompliance it is unsafe to place the patient on systemic anticoagulation. 3. CAD - prior stents. Asa/plavix, coreg, imdur, losartan, lipitor. 4. DMt2 - continue long acting + SSI. 5. Chest pain - resolved. Trop negative. EKG negative. Stress echo 05/2018 negative for ischemia. 6. Polysubstance abuse - cocaine / marijuana, tobacco 7. Hx Medication noncompliance 8. Asthma/COPD - no acute exacerbation at this time. DVT ppx: lovenox DC planning: Multiple readmissions, hx noncompliance and drug abuse, SW/CM aware. This patient was seen by Alfredo Gifford PA-C under the supervision of Doctor Candie. <Juan R Schreiber - Last Filed: 08/06/18 11:39> - Physical Exam Vital Signs Temp Pulse Resp BP Pulse Ox 97.6 F L 89 18 108/73 92 08/06/18 10:32 08/06/18 10:32 08/06/18 10:32 08/06/18 10:32 08/06/18 10:32 Oxygen Flow Rate (L/min) 2 Oxygen Delivery Method Nasal Cannula Weight: 88.6 kg Body Mass Index (BMI) 26.4 Finger Stick Blood Glucose 345 Intake and Output for Last 24 Hours 08/04/18 08/05/18 08/06/18 23:59 23:59 23:59 Intake Total 0 / 0 237 / 237 Output Total 1565 / 1565 515 / 515 Balance -1565 / -1565 -278 / -278 Microbiology Past 72 Hours 08/05/18 18:38 Influenza Types A,B Direct FA (FAREED) - Final Mucosa - Nasopharyngeal Laboratory Tests Past 24 Hrs 08/05/18 08/05/18 08/05/18 18:10 18:10 18:10 WBC 8.6 RBC 4.65 Hgb 13.7 Hct 40.3 MCV 86.7 MCH 29.5 MCHC 34.0 RDW 13.9 RDW Differential 43.7 Plt Count 211 MPV 10.2 Immature Gran % (Auto) 0.100 Neut % (Auto) 69.5 Lymph % (Auto) 20.9 [place] % (Auto) 6.5 Eos % (Auto) 2.8 Baso % (Auto) 0.2 Absolute Neuts (auto) 6.0 Absolute Lymphs (auto) 1.80 Total Counted Not Reportable Specimen Type Sample Site pH Bicarbonate Actual POC Total CO2 Base Excess O2 Saturation ABG pCO2 ABG pO2 Sami Test O2 Delivery Device Liter Flow Blood Gas Notified Whom Blood Gas Notified Time Sodium 135 L Potassium 3.7 Chloride 103 Carbon Dioxide 27.0 Anion Gap 5 BUN 10 Creatinine 0.84 Estim Creat Clear Calc 128.31 Est GFR (MDRD) Af Amer 130 Est GFR (MDRD) Non-Af 108 BUN/Creatinine Ratio 11.9 Glucose 410 H Lactic Acid 1.3 Calcium 8.0 L Magnesium Troponin I 0.038 B-Natriuretic Peptide Albumin Urine Color Urine Clarity Urine pH Ur Specific [place] Urine Protein Urine Glucose (UA) Urine Ketones Urine Occult Blood Urine Nitrite Urine Bilirubin Urine Urobilinogen Ur Leukocyte Esterase Urine RBC Urine WBC Ur Squamous Epith Cells Urine Bacteria Urine Mucus Urine Opiates Screen Urine Methadone Screen Ur Barbiturates Screen Ur Phencyclidine Scrn Ur Amphetamines Screen U Methamphetamin-MDMA U Benzodiazepines Scrn Urine Cocaine Screen U Cannabinoids Screen Ur Drug Screen Comment 08/05/18 08/05/18 08/05/18 18:10 18:10 19:17 WBC RBC Hgb Hct MCV MCH MCHC RDW RDW Differential Plt Count MPV Immature Gran % (Auto) Neut % (Auto) Lymph % (Auto) [place] % (Auto) Eos % (Auto) Baso % (Auto) Absolute Neuts (auto) Absolute Lymphs (auto) Total Counted Specimen Type ART Sample Site L Brachial pH 7.42 Bicarbonate Actual 23.7 POC Total CO2 25 Base Excess -1 O2 Saturation 84 L ABG pCO2 36.8 ABG pO2 47 L Sami Test POS O2 Delivery Device Nasal Can Liter Flow 2.0 Blood Gas Notified Whom ED Blood Gas Notified Time 1909 Sodium Potassium Chloride Carbon Dioxide Anion Gap BUN Creatinine Estim Creat Clear Calc Est GFR (MDRD) Af Amer Est GFR (MDRD) Non-Af BUN/Creatinine Ratio Glucose Lactic Acid Calcium Magnesium Troponin I B-Natriuretic Peptide 1813.0 H Albumin 2.7 L Urine Color Urine Clarity Urine pH Ur Specific [place] Urine Protein Urine Glucose (UA) Urine Ketones Urine Occult Blood Urine Nitrite Urine Bilirubin Urine Urobilinogen Ur Leukocyte Esterase Urine RBC Urine WBC Ur Squamous Epith Cells Urine Bacteria Urine Mucus Urine Opiates Screen Urine Methadone Screen Ur Barbiturates Screen Ur Phencyclidine Scrn Ur Amphetamines Screen U Methamphetamin-MDMA U Benzodiazepines Scrn Urine Cocaine Screen U Cannabinoids Screen Ur Drug Screen Comment 08/05/18 08/05/18 08/06/18 19:30 23:30 02:35 WBC RBC Hgb Hct MCV MCH MCHC RDW RDW Differential Plt Count MPV Immature Gran % (Auto) Neut % (Auto) Lymph % (Auto) [place] % (Auto) Eos % (Auto) Baso % (Auto) Absolute Neuts (auto) Absolute Lymphs (auto) Total Counted Specimen Type Sample Site pH Bicarbonate Actual POC Total CO2 Base Excess O2 Saturation ABG pCO2 ABG pO2 Sami Test O2 Delivery Device Liter Flow Blood Gas Notified Whom Blood Gas Notified Time Sodium Potassium Chloride Carbon Dioxide Anion Gap BUN Creatinine Estim Creat Clear Calc Est GFR (MDRD) Af Amer Est GFR (MDRD) Non-Af BUN/Creatinine Ratio Glucose Lactic Acid Calcium Magnesium Troponin I 0.029 0.022 B-Natriuretic Peptide Albumin Urine Color Yellow Urine Clarity Sl. Cloudy Urine pH 6.0 Ur Specific [place] 1.015 Urine Protein Negative Urine Glucose (UA) 1000 H Urine Ketones Negative Urine Occult Blood Negative Urine Nitrite Negative Urine Bilirubin Negative Urine Urobilinogen Normal Ur Leukocyte Esterase Negative Urine RBC 0 SEEN Urine WBC 0 SEEN Ur Squamous Epith Cells 0-5 SEEN Urine Bacteria 0 SEEN Urine Mucus 0 SEEN Urine Opiates Screen Urine Methadone Screen Ur Barbiturates Screen Ur Phencyclidine Scrn Ur Amphetamines Screen U Methamphetamin-MDMA U Benzodiazepines Scrn Urine Cocaine Screen U Cannabinoids Screen Ur Drug Screen Comment 08/06/18 08/06/18 08/06/18 05:14 05:14 05:14 WBC 9.7 RBC 5.06 Hgb 14.9 Hct 42.3 MCV 83.6 MCH 29.4 MCHC 35.2 RDW 13.3 RDW Differential 40.5 Plt Count 232 MPV 10.3 Immature Gran % (Auto) Neut % (Auto) Lymph % (Auto) [place] % (Auto) Eos % (Auto) Baso % (Auto) Absolute Neuts (auto) Absolute Lymphs (auto) Total Counted Specimen Type Sample Site pH Bicarbonate Actual POC Total CO2 Base Excess O2 Saturation ABG pCO2 ABG pO2 Sami Test O2 Delivery Device Liter Flow Blood Gas Notified Whom Blood Gas Notified Time Sodium 137 Potassium 3.2 L Chloride 102 Carbon Dioxide 28.0 Anion Gap 7 BUN 10 Creatinine 0.70 Estim Creat Clear Calc 153.97 Est GFR (MDRD) Af Amer 161 Est GFR (MDRD) Non-Af 133 BUN/Creatinine Ratio 14.3 Glucose 257 H Lactic Acid Calcium 8.3 L Magnesium 1.7 Troponin I 0.023 B-Natriuretic Peptide Albumin Urine Color Urine Clarity Urine pH Ur Specific [place] Urine Protein Urine Glucose (UA) Urine Ketones Urine Occult Blood Urine Nitrite Urine Bilirubin Urine Urobilinogen Ur Leukocyte Esterase Urine RBC Urine WBC Ur Squamous Epith Cells Urine Bacteria Urine Mucus Urine Opiates Screen Urine Methadone Screen Ur Barbiturates Screen Ur Phencyclidine Scrn Ur Amphetamines Screen U Methamphetamin-MDMA U Benzodiazepines Scrn Urine Cocaine Screen U Cannabinoids Screen Ur Drug Screen Comment 08/06/18 10:25 WBC RBC Hgb Hct MCV MCH MCHC RDW RDW Differential Plt Count MPV Immature Gran % (Auto) Neut % (Auto) Lymph % (Auto) [place] % (Auto) Eos % (Auto) Baso % (Auto) Absolute Neuts (auto) Absolute Lymphs (auto) Total Counted Specimen Type Sample Site pH Bicarbonate Actual POC Total CO2 Base Excess O2 Saturation ABG pCO2 ABG pO2 Sami Test O2 Delivery Device Liter Flow Blood Gas Notified Whom Blood Gas Notified Time Sodium Potassium Chloride Carbon Dioxide Anion Gap BUN Creatinine Estim Creat Clear Calc Est GFR (MDRD) Af Amer Est GFR (MDRD) Non-Af BUN/Creatinine Ratio Glucose Lactic Acid Calcium Magnesium Troponin I B-Natriuretic Peptide Albumin Urine Color Urine Clarity Urine pH Ur Specific [place] Urine Protein Urine Glucose (UA) Urine Ketones Urine Occult Blood Urine Nitrite Urine Bilirubin Urine Urobilinogen Ur Leukocyte Esterase Urine RBC Urine WBC Ur Squamous Epith Cells Urine Bacteria Urine Mucus Urine Opiates Screen NEGATIVE Urine Methadone Screen NEGATIVE Ur Barbiturates Screen NEGATIVE Ur Phencyclidine Scrn NEGATIVE Ur Amphetamines Screen NEGATIVE U Methamphetamin-MDMA NEGATIVE U Benzodiazepines Scrn NEGATIVE Urine Cocaine Screen NEGATIVE U Cannabinoids Screen NEGATIVE Ur Drug Screen Comment POC Glucose 08/06/18 08/06/18 08/05/18 06:56 02:19 23:49 POC Glucose 244 H 150 H 103 08/05/18 18:07 POC Glucose 415 H Assessment/Plan This patient was seen in conjunction with Alfredo Gifford PA-C . I have independently interviewed and examined the patient and reviewed pertinent historical, laboratory, and other data. Please refer to Alfredo Gifford PA-C note for details of this patient's presentation, findings, and recommendations. I have reviewed Alfredo Gifford PA-C note and concur with documented findings. In brief, [id number] gentleman with known ischemic cardiomyopathy with an ejection fraction of 50% who presented with progressive shortness of breath and assessment of acute on chronic systolic heart failure made admitted to a monitored bed for further management Physical Examination: GENERAL: cooperative HEENT: Atraumatic; moist oral mucosa EYES; Anicteric, Normal Conjunctiva NECK; supple, normal thyroid, RESPIRATORY: Diminished to auscultation bilaterally, CARDIOVASCULAR: Regular S1 S2, NEURO: Awake; no lateralizing signs. SKIN: No Rash PSYCH; Normal affect Assessment: 1. Acute on chronic systolic heart failure 2. Ventricular thrombus Case discussed with Dr. Ramirez with cardiology who advised against systemic anticoagulation due to noncompliance 3. CAD with previous PCI and subsequent stent placement 4. Diabetes mellitus type 2 5. Ischemic cardiomyopathy with ejection fraction of 15% 6. Moderate hypertension 7. Polysubstance abuse 8. Mild intermittent asthma 9. History of medical noncompliance 10. DVT prophylaxis SC Lovenox Recommendations: 1. I have discussed the results of my overview and impressions with the patient 2. Options for management were reviewed Code Visit Inpatient E&M: 33998 [facility] Hosp L3
[2018-08-06 10:55] LABS: Amphetamine Urine VISTA NEGATIVE (<1000 ng/mL); Barbiturate Urine VISTA NEGATIVE (< 200 ng/mL); Benzodiazepine Urine VISTA NEGATIVE (< 200 ng/mL); Cocaine Urine VISTA NEGATIVE (< 300 ng/mL); Ecstacy Urine VISTA NEGATIVE (< 500 ng/mL); Methadone Urine VISTA NEGATIVE (< 300 ng/mL); PCP Urine VISTA NEGATIVE (< 25 ng/mL); THC Urine VISTA NEGATIVE (< 50 ng/mL); Vista UDS pH Range 6
[2018-08-06 11:25] LABS: Magnesium 1.7 mg/dL (1.6-2.6)
--- NOTE | 2018-08-06 11:38 | CASEMGMT ---
This RN CM to room to complete CM assessment and pt is sleeping without distress at this time and does not awaken to verbal stimuli. This RN CM will attempt again later. SStaten RN CM
[2018-08-06 12:10] LABS: Bedside Glucose 320 mg/dL (70-110)
--- NOTE | 2018-08-06 13:50 | CASEMGMT ---
Addendum entered by Rowena Wolf 08/06/18 14:58: This RN CM to room to speak with pt and complete CM assessment at this time. Pt will not stay awake long enough to answer a question at this time. This RN CM tries to use verbal stimuli and pt does not stay awake. This RN CM will attempt again tomorrow. Rica TEJEDA CM Original Note: Therapy at bedside working with pt at this time. Will attempt again later. Rica TEJEDA CM
[2018-08-06 17:31] LABS: Bedside Glucose 196 mg/dL (70-110)
[2018-08-06] MEDS: Atorvastatin Calcium 40 MG Tablet PO (21:17)
[2018-08-06 21:26] LABS: Bedside Glucose 341 mg/dL (70-110)
[2018-08-07 02:53] VITALS: BP 110/71; PULSE 93; RESP 16; TEMP 36.6; O2SAT 97
[2018-08-07] MEDS: Acetaminophen 325 MG Tablet 650 MG PO (02:56)
[2018-08-07 03:00] VITALS: PULSE 91
[2018-08-07 03:26] LABS: Bedside Glucose 116 mg/dL (70-110)
[2018-08-07 05:57] LABS: Anion Gap 7 (5-15); BUN 13 mg/dL (7-18); BUN/Creat Ratio 15.2 RATIO (10-20); Calcium,Total 8.3 mg/dL (8.5-10.1); Chloride 104 mmol/L (98-107); Creatinine, Serum 0.86 mg/dL (0.70-1.30); EST Glomerular Filtration Rate 105 mL/min (>60); Est Glom Filt Rate - Afr Amer 127 mL/min (>60); Estimated Creatinine Clearance 125.32 ml/min; Glucose 172 mg/dL (74-106); Potassium 3.6 mmol/L (3.5-5.1); Sodium Level 141 mmol/L (136-145)
[2018-08-07 06:55] LABS: Bedside Glucose 218 mg/dL (70-110)
[2018-08-07 07:10] VITALS: O2SAT 97
[2018-08-07 07:43] VITALS: PULSE 85
[2018-08-07 08:23] VITALS: BP 109/69; PULSE 83; RESP 17; TEMP 36.4; O2SAT 96
[2018-08-07] MEDS: Insulin Lispro 100 UNIT/ML INSULN.PEN SQ ×2 (10:22→12:07)
[2018-08-07] MEDS: Carvedilol 6.25 MG Tablet PO (10:24)
[2018-08-07] MEDS: Spironolactone 25 MG Tablet PO (10:24)
[2018-08-07] MEDS: Aspirin E.C. 81 MG Tablet PO ×2 (10:24→12:07)
[2018-08-07] MEDS: Isosorbide Mononitrate 30 MG Tablet PO (10:25)
[2018-08-07] MEDS: Losartan Potassium 25 MG Tablet PO (10:25)
[2018-08-07] MEDS: guaiFENesin 1,200 MG Tablet 1200 MG PO (10:26)
[2018-08-07] MEDS: Furosemide 100 MG/10 ML Vial 80 MG IV (10:26)
[2018-08-07] MEDS: Enoxaparin 40 MG/0.4 ML Syringe SC (10:27)
[2018-08-07] MEDS: Magnesium Oxide 400 MG Tablet PO (10:27)
[2018-08-07] MEDS: Clopidogrel Bisulfate 75 MG Tablet PO (10:32)
[2018-08-07] MEDS: 0.9% NaCl Peripheral Flush Adult/Peds IV (10:33)
[2018-08-07 10:37] VITALS: O2SAT 93
--- NOTE | 2018-08-07 11:17 | DCINST_ITS ---
You will use the following diet at home:: Calorie/Carbohydrate Controlled (specify 1200, 1400, etc) - 1800 vee / day, Cardiac - <2 g sodium daily Your food should be the consistency of: Regular Your liquids should be the consistency of: Regular/Thin Discharge Activity: Return to Normal Activity, - - Check weight daily, at the same time every day. If more than 5 pound increase in 24 hours, call doctor for further instructions regarding heart failure. Allergies/Adverse Reactions: Allergies No Known Allergies Allergy (Verified 07/08/18 23:25) Medications to take at Discharge Insulin Aspart [Novolog Flexpen] units SC ACHS 07/06/18 Acetaminophen [Tylenol Tablet] 650 mg PO Q6H PRN PRN #120 tablet 08/07/18 Albuterol Aerosols [Ventolin Aerosols] 2.5 mg INHALATION Q2H PRN PRN #60 vial.neb. 08/07/18 Aspirin E.C. [Ecotrin] 81 mg PO TID #90 tablet 08/07/18 Atorvastatin Calcium 40 mg PO DAILY #30 tablet 08/07/18 Carvedilol 6.25 mg PO BID #60 tab 08/07/18 Clopidogrel Bisulfate [Plavix] 75 mg PO DAILY #30 tablet 08/07/18 Furosemide [Lasix] 80 mg PO BIDLX #60 tablet 08/07/18 Insulin Glargine,Hum.rec.anlog [Basaglar Kwikpen U-100] 14 unit SQ DAILY #1 insuln.pen 08/07/18 Isosorbide Mononitrate [Isosorbide Mononitrate ER] 30 mg PO DAILY #30 tab.er.24h 08/07/18 Losartan Potassium [Cozaar] 25 mg PO DAILY #30 tab 08/07/18 Magnesium Oxide [Magox 400] 400 mg PO DAILY #30 tab 08/07/18 Nitroglycerin [Nitrostat] 0.4 mg SUBLINGUAL Q5M PRN #6 tab 08/07/18 Potassium Chloride [K-Tab ER] 20 meq PO DAILY #30 tablet.er 08/07/18 Spironolactone 25 mg PO DAILY #30 tab 08/07/18 hydrOXYzine pamoate capsule [Vistaril pamoate capsule] 50 mg PO TID PRN PRN #60 capsule 08/07/18 The following prescriptions were given: Acetaminophen [Tylenol Tablet] 650 mg PO Q6H PRN PRN #120 tablet PRN Reason: Mild Pain (scale 0-3)/T>100.7 Albuterol Aerosols [Ventolin Aerosols] 2.5 mg INHALATION Q2H PRN PRN #60 vial.neb. PRN Reason: dyspnea, wheezing Aspirin E.C. [Ecotrin] 81 mg PO TID #90 tablet Atorvastatin Calcium 40 mg PO DAILY #30 tablet Carvedilol 6.25 mg PO BID #60 tab Clopidogrel Bisulfate [Plavix] 75 mg PO DAILY #30 tablet Furosemide [Lasix] 80 mg PO BIDLX #60 tablet Insulin Glargine,Hum.rec.anlog [Basaglar Kwikpen U-100] 14 unit SQ DAILY #1 insuln.pen Isosorbide Mononitrate [Isosorbide Mononitrate ER] 30 mg PO DAILY #30 tab.er.24h Losartan Potassium [Cozaar] 25 mg PO DAILY #30 tab Magnesium Oxide [Magox 400] 400 mg PO DAILY #30 tab Nitroglycerin [Nitrostat] 0.4 mg SUBLINGUAL Q5M PRN #6 tab PRN Reason: Chest Pain Potassium Chloride [K-Tab ER] 20 meq PO DAILY #30 tablet.er Spironolactone 25 mg PO DAILY #30 tab Primary Care Physician: Jesus Sarah [Primary Care Provider] - Please follow up with your Primary Care Physician in: 1 week Test Results: Test results from this visit will be discussed in further detail at your follow- up appointment, if applicable. Proposed Discharge Date: 08/07/18
--- NOTE | 2018-08-07 11:26 | CASEMGMT ---
RN CM assessment: Face to Face with patient for initial transition planning/care coordination assessment. RN CM introduced self and role at [facility], pt voices understanding and consents to assessment at this time. Pt is lying in bed in no distress at this time. Pt is A/Ox4 at this time and answers all questions appropriately at this time. Care providers, pharmacy, and demographics verified/updated at this time. PCP: Pt gives this RN CM multiple names for PCP at this time and states 'I don't know, I haven't seen anybody in a minute.' Pt states that he has a PCP list at home that was provided during last admission but never set up an appt. Pt states no preference for PCP at this time and asks this RN CM to set up an appt for him at this time. This RN CM set up an appt with Dr. Nieves's office on 08/21/18 at 1345. This was placed in D/C appointments and printed off to be handed to pt with d/c paperwork. Pt also provided with a card for Dr. Nieves's office at this time. Specialists: Pt states currently has no specilists. Preferred [facility]acy: [facility] Insurance: [employer] Prescription Benefit: [employer] Living Will/HPOA: Pt states does not have LW/HPOA and declines info at this time. LNOK: Jose Cheek, aunt Living Arrangements: Pt states lives with aunt in a house apt and states no concerns at home at this time. Pt states is independent with ADL's. Transportation: Pt states does not drives but has friends/family that do drive and states no transportation concerns at this time. DME/HHC: Pt states has nebulizer w/ medications and states has been using, when needed. Pt states no need for any further DME at this time. Pt states no hx of HHC or SNF in the past. Pt states does have a CM, Rosita, thru [employer]. Pt states no concerns with going home at time of discharge. Pt states is currently unemployed and is trying to get on disability. Pt states smokes cigarettes and marijuana intermittently and drinks ETOH occasionally. Pt denies any other recreational drugs at this time. Pt states no further concerns/needs at this time. CM to follow for any further discharge planning/needs. Advised pt to ask for CM if any further questions/concerns/needs arise, voices understanding. Pt Goal: Home Plan: Home Rica TEJEDA CM
[2018-08-07 12:00] LABS: Bedside Glucose 444 mg/dL (70-110)
--- NOTE | 2018-08-07 14:08 | PCM.DC.SUM ---
<Alfredo Gifford - Last Filed: 08/07/18 14:08> Discharge Date and Diagnosis Date of Admission: 08/05/18 Date of Discharge: 08/07/18 - Primary Discharge Diagnosis Acute systolic CHF exacberatin 2/2 medication noncompliance Ventricular Thrombus Polysubstance abuse cocaine, marijuana, tobacco HTN Ischemic CM CAD prior stent HTN T2DM Asthma/COPD - Secondary Discharge Diagnosis Chronic Problems (Last Reviewed 08/06/18 @ 08:21 by Benjamin Cerna MD) CAD (coronary artery disease) (Chronic) Severe left ventricular systolic dysfunction (Chronic) Polysubstance abuse (Chronic) marijuana, cocaine 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/28/17) SICD per Dr Berry @ [facility] Nicotine dependence (Chronic) Old myocardial infarction (Chronic) Hypertension (Chronic) History of coronary artery stent placement (Chronic 04/30/18) PCI-MEHRDAD-LAD 08/2014, DMY-JDX-Gaix-Mid CX and Prox-Mid RCA 03/18/15, Thrombosis of CX stent 03/25/15. MEHRDAD to RCA (2.7 X 16 Promus Synergy) 04/30/2018 Atherosclerosis of coronary artery of campo heart without angina pectoris (Chronic) PCI-MEHRDAD-LAD 08/2014, CTC-XQN-Tutp-Mid CX and Prox-Mid RCA 03/18/15, Thrombosis of CX stent 03/25/15 Ischemic cardiomyopathy (Chronic) EF 20% per echo 08/08/2016 Hyperlipidemia (Chronic) Type 2 diabetes mellitus (Chronic) Chronic systolic CHF (congestive heart failure) (Chronic) Hospital Course and Treatment Imaging Results: RAD/Chest 1 View (Portable) IMPRESSION: Mild diffuse hazy increased density of the mid and lower lung song bilaterally suggestive of congestion/edema and/or multifocal pneumonia. RECENT ECHO 07/07/2018 Interpretation Summary Normal LV size. The estimated ejection fraction is 15 %. There are regional wall motion abnormalities as specified. Stage 3 diastolic dysfunction. Ventricular thrombus in apex measuring 2.1cm by 1.5cm Pulmonary artery systolic pressure is 65 mmHg. Moderate pulmonary hypertension. Operations: None Procedures: None Summary of Care Provided: Hospital Course: The patient is a 42 year old M with pmhx systolic CHF, ischemic CM, CAD prior stents, cocaine/marijuana/nicotine abuse, ongoing issues with medication noncompliance, DMt2, asthma/COPD, who presented to the ER with increased SOB and LE edema. He admitted that he had not been taking his medications at home, and that he was out of all of his medications. He had a CXR c/w CHF , was afebrile with no leukocytosis, and had a BNP of 1813. He was admitted for acute systolic CHF exacerbation and placed on IV lasix 80 BID. He improved quickly with IV diuresis. He was off o2 by the following day with significant reduction of LE edema. He was kept for further diuresis overnight, and tolerated this well. He desired to go home, and was ambulated in the meyer with no hypoxia and no SOB. He had no further LE edema. He requested that I re-prescribe him his home medications as he has none - I agreed, but also informed him that I can write for a maximum of 1 months worth of medications as he needs to establish care with a PCP. He recently had an echo about 1 month prior, that showed EF15% and other findings as above - A repeat was deferred at this time. There was a ventricular thrombus noted - I called his lens cementer Dr. Ramirez, and confirmed that he should not be on oral anticoagulation for this given his hx of medication noncompliance and substance abuse, he was too high risk. He was discharged home in stable condition and advised to follow up with his PCP in 1-2 weeks. This patient was seen by Alfredo Gifford PA-C under the supervision of Dr. Schreiber. [] - Physical Exam General: Alert, Oriented x3, Cooperative HEENT: Atraumatic, PERRLA, EOMI, Normocephalic Neck: Supple, No JVD, Negative Carotid Bruits Lungs: Clear to auscultation, Normal air movement Cardiovascular: Regular rate, No murmurs Abdomen: Bowel Sounds Present, Soft, Non Tender Extremities: No edema, Capillary Refill Less than 3 Seconds Skin: No rashes, No breakdown Musculoskeletal: No Tenderness to Palpation of Joints or Extremities Neurological: Cranial nerves II-XII grossly intact Psych/Mental Status: Normal Affect, Appropriate Vital Signs Temp Pulse Resp BP Pulse Ox 97.6 F L 83 17 109/69 93 08/07/18 08:23 08/07/18 08:23 08/07/18 08:23 08/07/18 08:23 08/07/18 10:37 Oxygen Flow Rate (L/min) 2 Oxygen Delivery Method Room Air Weight: 194 lb 14.218 oz Body Mass Index (BMI) 26.4 Finger Stick Blood Glucose 345 Intake and Output for Last 24 Hours 08/05/18 08/06/18 08/07/18 23:59 23:59 23:59 Intake Total 0 / 0 1975 1124 / 1124 Output Total 1565 / 1565 3690 / 3690 1175 / 1175 Balance -1565 / -1565 -1714 / -1714 -51 / -51 Microbiology Past 72 Hours 08/05/18 18:38 Influenza Types A,B Direct FA (FAREED) - Final Mucosa - Nasopharyngeal Laboratory Tests Past 24 Hrs 08/07/18 05:25 Sodium 141 Potassium 3.6 Chloride 104 Carbon Dioxide 30.0 Anion Gap 7 BUN 13 Creatinine 0.86 Estim Creat Clear Calc 125.32 Est GFR (MDRD) Af Amer 127 Est GFR (MDRD) Non-Af 105 BUN/Creatinine Ratio 15.2 Glucose 172 H Calcium 8.3 L POC Glucose 08/07/18 08/07/18 08/07/18 11:48 06:46 02:56 POC Glucose 444 H 218 H 116 H 08/06/18 08/06/18 21:15 17:16 POC Glucose 341 H 196 H Discharge Diet: Low fat/ Low Cholesterol, 1800 Calorie Control Diet, 2000 mg Sodium Diet Discharge Activity: Return to Normal Activity, - - Check weight daily, at the same time every day. If more than 5 pound increase in 24 hours, call doctor for further instructions regarding heart failure. Home Medications: Medications to take at Discharge Insulin Aspart [Novolog Flexpen] units SC ACHS 07/06/18 Acetaminophen [Tylenol Tablet] 650 mg PO Q6H PRN PRN #120 tablet 08/07/18 Albuterol Aerosols [Ventolin Aerosols] 2.5 mg INHALATION Q2H PRN PRN #60 vial.neb. 08/07/18 Albuterol IH (ProAir) [Proair Hfa] 1 puff INHALATION Q6H PRN PRN #1 inhaler 08/07/18 Aspirin E.C. [Ecotrin] 81 mg PO TID #90 tablet 08/07/18 Atorvastatin Calcium 40 mg PO DAILY #30 tablet 08/07/18 Carvedilol 6.25 mg PO BID #60 tab 08/07/18 Clopidogrel Bisulfate [Plavix] 75 mg PO DAILY #30 tablet 08/07/18 Furosemide [Lasix] 80 mg PO BIDLX #60 tablet 08/07/18 Insulin Glargine,Hum.rec.anlog [Basaglar Kwikpen U-100] 14 unit SQ DAILY #1 insuln.pen 08/07/18 Isosorbide Mononitrate [Isosorbide Mononitrate ER] 30 mg PO DAILY #30 tab.er.24h 08/07/18 Losartan Potassium [Cozaar] 25 mg PO DAILY #30 tab 08/07/18 Magnesium Oxide [Magox 400] 400 mg PO DAILY #30 tab 08/07/18 Nitroglycerin [Nitrostat] 0.4 mg SUBLINGUAL Q5M PRN #6 tab 08/07/18 Potassium Chloride [K-Tab ER] 20 meq PO DAILY #30 tablet.er 08/07/18 Spironolactone 25 mg PO DAILY #30 tab 08/07/18 hydrOXYzine pamoate capsule [Vistaril pamoate capsule] 50 mg PO TID PRN PRN #60 capsule 08/07/18 Following Prescrptions Were Given to Patient: Acetaminophen [Tylenol Tablet] 650 mg PO Q6H PRN PRN #120 tablet PRN Reason: Mild Pain (scale 0-3)/T>100.7 Albuterol Aerosols [Ventolin Aerosols] 2.5 mg INHALATION Q2H PRN PRN #60 vial.neb. PRN Reason: dyspnea, wheezing Albuterol IH (ProAir) [Proair Hfa] 1 puff INHALATION Q6H PRN PRN #1 inhaler PRN Reason: Sob &/Or Wheezing Aspirin E.C. [Ecotrin] 81 mg PO TID #90 tablet Atorvastatin Calcium 40 mg PO DAILY #30 tablet Carvedilol 6.25 mg PO BID #60 tab Clopidogrel Bisulfate [Plavix] 75 mg PO DAILY #30 tablet Furosemide [Lasix] 80 mg PO BIDLX #60 tablet Insulin Glargine,Hum.rec.anlog [Basaglar Kwikpen U-100] 14 unit SQ DAILY #1 insuln.pen Isosorbide Mononitrate [Isosorbide Mononitrate ER] 30 mg PO DAILY #30 tab.er.24h Losartan Potassium [Cozaar] 25 mg PO DAILY #30 tab Magnesium Oxide [Magox 400] 400 mg PO DAILY #30 tab Nitroglycerin [Nitrostat] 0.4 mg SUBLINGUAL Q5M PRN #6 tab PRN Reason: Chest Pain Potassium Chloride [K-Tab ER] 20 meq PO DAILY #30 tablet.er Spironolactone 25 mg PO DAILY #30 tab Primary Care Physician: Jesus Sarah [NON-STAFF] - Please follow up with your Primary Care Physician in: 1 week Disposition: Home Minutes spent on discharge:: 35 Patient Condition:: Stable Medical Necessity - Tobacco Use Smoking Status: Current every day smoker Tobacco Use: Cigarettes Meaningful Use Info Meaningful Use Diagnoses (Choose all that apply): CHF - CHF KENNETH/ARB ordered at discharge?: Yes Documented LVEF (%): 15 <Juan R Schreiber - Last Filed: 08/07/18 16:08> Discharge Date and Diagnosis - Secondary Discharge Diagnosis Chronic Problems (Last Reviewed 08/06/18 @ 08:21 by Benjamin Cerna MD) CAD (coronary artery disease) (Chronic) Severe left ventricular systolic dysfunction (Chronic) Polysubstance abuse (Chronic) marijuana, cocaine 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/28/17) SICD per Dr Berry @ [facility] Nicotine dependence (Chronic) Old myocardial infarction (Chronic) Hypertension (Chronic) History of coronary artery stent placement (Chronic 04/30/18) PCI-MEHRDAD-LAD 08/2014, LOR-IFD-Liwp-Mid CX and Prox-Mid RCA 03/18/15, Thrombosis of CX stent 03/25/15. MEHRDAD to RCA (2.7 X 16 Promus Synergy) 04/30/2018 Atherosclerosis of coronary artery of campo heart without angina pectoris (Chronic) PCI-MEHRDAD-LAD 08/2014, BGD-FMC-Vclp-Mid CX and Prox-Mid RCA 03/18/15, Thrombosis of CX stent 03/25/15 Ischemic cardiomyopathy (Chronic) EF 20% per echo 08/08/2016 Hyperlipidemia (Chronic) Type 2 diabetes mellitus (Chronic) Chronic systolic CHF (congestive heart failure) (Chronic) Hospital Course and Treatment Summary of Care Provided: TThis patient was seen in conjunction with Alfredo Gifford PA-C . I have independently interviewed and examined the patient and reviewed pertinent historical, laboratory, and other data. Please refer to Alfredo Gifford PA-C note for details of this patient's presentation, findings, and recommendations. I have reviewed Alfredo Gifford PA-C note and concur with documented findings. In brief, [id number] gentleman with known ischemic cardiomyopathy with an ejection fraction of 50% who presented with progressive shortness of breath and assessment of acute on chronic systolic heart failure made admitted to a monitored bed for further management Assessment: 1. Acute on chronic systolic heart failure 2. Ventricular thrombus Case discussed with Dr. Ramirez with cardiology who advised against systemic anticoagulation due to noncompliance 3. CAD with previous PCI and subsequent stent placement 4. Diabetes mellitus type 2 5. Ischemic cardiomyopathy with ejection fraction of 15% 6. Moderate hypertension 7. Polysubstance abuse 8. Mild intermittent asthma 9. History of medical noncompliance 10. DVT prophylaxis SC Lovenox Hospital course: As documented above by Alfredo Gifford PA-C - Physical Exam Vital Signs Temp Pulse Resp BP Pulse Ox 97.6 F L 83 17 109/69 93 08/07/18 08:23 08/07/18 08:23 08/07/18 08:23 08/07/18 08:23 08/07/18 10:37 Oxygen Flow Rate (L/min) 2 Oxygen Delivery Method Room Air Weight: 88.4 kg Body Mass Index (BMI) 26.4 Finger Stick Blood Glucose 345 Intake and Output for Last 24 Hours 08/05/18 08/06/18 08/07/18 23:59 23:59 23:59 Intake Total 0 / 0 1975 / 1975 1124 / 1124 Output Total 1565 / 1565 3690 / 3690 1175 / 1175 Balance -1565 / -1565 -1714 / -1714 -51 / -51 Microbiology Past 72 Hours 08/05/18 18:38 Influenza Types A,B Direct FA (FAREED) - Final Mucosa - Nasopharyngeal Laboratory Tests Past 24 Hrs 08/07/18 05:25 Sodium 141 Potassium 3.6 Chloride 104 Carbon Dioxide 30.0 Anion Gap 7 BUN 13 Creatinine 0.86 Estim Creat Clear Calc 125.32 Est GFR (MDRD) Af Amer 127 Est GFR (MDRD) Non-Af 105 BUN/Creatinine Ratio 15.2 Glucose 172 H Calcium 8.3 L POC Glucose 08/07/18 08/07/18 08/07/18 11:48 06:46 02:56 POC Glucose 444 H 218 H 116 H 08/06/18 08/06/18 21:15 17:16 POC Glucose 341 H 196 H Code Visit Inpatient E&M: 10935 Disch Hosp
--- NOTE | 2018-08-07 14:17 | DS.PCM_ITS ---
<Alfredo Gifford - Last Filed: 08/07/18 14:08> Discharge Date and Diagnosis Date of Admission: 08/05/18 Date of Discharge: 08/07/18 - Primary Discharge Diagnosis Acute systolic CHF exacberatin 2/2 medication noncompliance Ventricular Thrombus Polysubstance abuse cocaine, marijuana, tobacco HTN Ischemic CM CAD prior stent HTN T2DM Asthma/COPD - Secondary Discharge Diagnosis Chronic Problems (Last Reviewed 08/06/18 @ 08:21 by Benjamin Cerna MD) CAD (coronary artery disease) (Chronic) Severe left ventricular systolic dysfunction (Chronic) Polysubstance abuse (Chronic) marijuana, cocaine 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/28/17) SICD per Dr Berry @ [facility] Nicotine dependence (Chronic) Old myocardial infarction (Chronic) Hypertension (Chronic) History of coronary artery stent placement (Chronic 04/30/18) PCI-MEHRDAD-LAD 08/2014, FVF-WJE-Cdbh-Mid CX and Prox-Mid RCA 03/18/15, Thrombosis of CX stent 03/25/15. MEHRDAD to RCA (2.7 X 16 Promus Synergy) 04/30/2018 Atherosclerosis of coronary artery of campo heart without angina pectoris (Chronic) PCI-MEHRDAD-LAD 08/2014, AMW-SZV-Mjuk-Mid CX and Prox-Mid RCA 03/18/15, Thrombosis of CX stent 03/25/15 Ischemic cardiomyopathy (Chronic) EF 20% per echo 08/08/2016 Hyperlipidemia (Chronic) Type 2 diabetes mellitus (Chronic) Chronic systolic CHF (congestive heart failure) (Chronic) Hospital Course and Treatment Imaging Results: RAD/Chest 1 View (Portable) IMPRESSION: Mild diffuse hazy increased density of the mid and lower lung song bilaterally suggestive of congestion/edema and/or multifocal pneumonia. RECENT ECHO 07/07/2018 Interpretation Summary Normal LV size. The estimated ejection fraction is 15 %. There are regional wall motion abnormalities as specified. Stage 3 diastolic dysfunction. Ventricular thrombus in apex measuring 2.1cm by 1.5cm Pulmonary artery systolic pressure is 65 mmHg. Moderate pulmonary hypertension. Operations: None Procedures: None Summary of Care Provided: Hospital Course: The patient is a 42 year old M with pmhx systolic CHF, ischemic CM, CAD prior stents, cocaine/marijuana/nicotine abuse, ongoing issues with medication noncompliance, DMt2, asthma/COPD, who presented to the ER with increased SOB and LE edema. He admitted that he had not been taking his medications at home, and that he was out of all of his medications. He had a CXR c/w CHF , was afebrile with no leukocytosis, and had a BNP of 1813. He was admitted for acute systolic CHF exacerbation and placed on IV lasix 80 BID. He improved quickly with IV diuresis. He was off o2 by the following day with significant reduction of LE edema. He was kept for further diuresis overnight, and tolerated this well. He desired to go home, and was ambulated in the meyer with no hypoxia and no SOB. He had no further LE edema. He requested that I re-prescribe him his home medications as he has none - I agreed, but also informed him that I can write for a maximum of 1 months worth of medications as he needs to establish care with a PCP. He recently had an echo about 1 month prior, that showed EF15% and other findings as above - A repeat was deferred at this time. There was a ventricular thrombus noted - I called his vibration analyst Dr. Ramirez, and confirmed that he should not be on oral anticoagulation for this given his hx of medication noncompliance and substance abuse, he was too high risk. He was discharged home in stable condition and advised to follow up with his PCP in 1-2 weeks. This patient was seen by Alfredo Gifford PA-C under the supervision of Dr. Schreiber. [] - Physical Exam General: Alert, Oriented x3, Cooperative HEENT: Atraumatic, PERRLA, EOMI, Normocephalic Neck: Supple, No JVD, Negative Carotid Bruits Lungs: Clear to auscultation, Normal air movement Cardiovascular: Regular rate, No murmurs Abdomen: Bowel Sounds Present, Soft, Non Tender Extremities: No edema, Capillary Refill Less than 3 Seconds Skin: No rashes, No breakdown Musculoskeletal: No Tenderness to Palpation of Joints or Extremities Neurological: Cranial nerves II-XII grossly intact Psych/Mental Status: Normal Affect, Appropriate Vital Signs Temp Pulse Resp BP Pulse Ox 97.6 F L 83 17 109/69 93 08/07/18 08:23 08/07/18 08:23 08/07/18 08:23 08/07/18 08:23 08/07/18 10:37 Oxygen Flow Rate (L/min) 2 Oxygen Delivery Method Room Air Weight: 194 lb 14.218 oz Body Mass Index (BMI) 26.4 Finger Stick Blood Glucose 345 Intake and Output for Last 24 Hours 08/05/18 08/06/18 08/07/18 23:59 23:59 23:59 Intake Total 0 / 0 1975 1124 / 1124 Output Total 1565 / 1565 3690 / 3690 1175 / 1175 Balance -1565 / -1565 -1714 / -1714 -51 / -51 Microbiology Past 72 Hours 08/05/18 18:38 Influenza Types A,B Direct FA (FAREED) - Final Mucosa - Nasopharyngeal Laboratory Tests Past 24 Hrs 08/07/18 05:25 Sodium 141 Potassium 3.6 Chloride 104 Carbon Dioxide 30.0 Anion Gap 7 BUN 13 Creatinine 0.86 Estim Creat Clear Calc 125.32 Est GFR (MDRD) Af Amer 127 Est GFR (MDRD) Non-Af 105 BUN/Creatinine Ratio 15.2 Glucose 172 H Calcium 8.3 L POC Glucose 08/07/18 08/07/18 08/07/18 11:48 06:46 02:56 POC Glucose 444 H 218 H 116 H 08/06/18 08/06/18 21:15 17:16 POC Glucose 341 H 196 H Discharge Diet: Low fat/ Low Cholesterol, 1800 Calorie Control Diet, 2000 mg Sodium Diet Discharge Activity: Return to Normal Activity, - - Check weight daily, at the same time every day. If more than 5 pound increase in 24 hours, call doctor for further instructions regarding heart failure. Home Medications: Medications to take at Discharge Insulin Aspart [Novolog Flexpen] units SC ACHS 07/06/18 Acetaminophen [Tylenol Tablet] 650 mg PO Q6H PRN PRN #120 tablet 08/07/18 Albuterol Aerosols [Ventolin Aerosols] 2.5 mg INHALATION Q2H PRN PRN #60 vial.neb. 08/07/18 Albuterol IH (ProAir) [Proair Hfa] 1 puff INHALATION Q6H PRN PRN #1 inhaler 08/07/18 Aspirin E.C. [Ecotrin] 81 mg PO TID #90 tablet 08/07/18 Atorvastatin Calcium 40 mg PO DAILY #30 tablet 08/07/18 Carvedilol 6.25 mg PO BID #60 tab 08/07/18 Clopidogrel Bisulfate [Plavix] 75 mg PO DAILY #30 tablet 08/07/18 Furosemide [Lasix] 80 mg PO BIDLX #60 tablet 08/07/18 Insulin Glargine,Hum.rec.anlog [Basaglar Kwikpen U-100] 14 unit SQ DAILY #1 insuln.pen 08/07/18 Isosorbide Mononitrate [Isosorbide Mononitrate ER] 30 mg PO DAILY #30 tab.er.24h 08/07/18 Losartan Potassium [Cozaar] 25 mg PO DAILY #30 tab 08/07/18 Magnesium Oxide [Magox 400] 400 mg PO DAILY #30 tab 08/07/18 Nitroglycerin [Nitrostat] 0.4 mg SUBLINGUAL Q5M PRN #6 tab 08/07/18 Potassium Chloride [K-Tab ER] 20 meq PO DAILY #30 tablet.er 08/07/18 Spironolactone 25 mg PO DAILY #30 tab 08/07/18 hydrOXYzine pamoate capsule [Vistaril pamoate capsule] 50 mg PO TID PRN PRN #60 capsule 08/07/18 Following Prescrptions Were Given to Patient: Acetaminophen [Tylenol Tablet] 650 mg PO Q6H PRN PRN #120 tablet PRN Reason: Mild Pain (scale 0-3)/T>100.7 Albuterol Aerosols [Ventolin Aerosols] 2.5 mg INHALATION Q2H PRN PRN #60 vial.neb. PRN Reason: dyspnea, wheezing Albuterol IH (ProAir) [Proair Hfa] 1 puff INHALATION Q6H PRN PRN #1 inhaler PRN Reason: Sob &/Or Wheezing Aspirin E.C. [Ecotrin] 81 mg PO TID #90 tablet Atorvastatin Calcium 40 mg PO DAILY #30 tablet Carvedilol 6.25 mg PO BID #60 tab Clopidogrel Bisulfate [Plavix] 75 mg PO DAILY #30 tablet Furosemide [Lasix] 80 mg PO BIDLX #60 tablet Insulin Glargine,Hum.rec.anlog [Basaglar Kwikpen U-100] 14 unit SQ DAILY #1 insuln.pen Isosorbide Mononitrate [Isosorbide Mononitrate ER] 30 mg PO DAILY #30 tab.er.24h Losartan Potassium [Cozaar] 25 mg PO DAILY #30 tab Magnesium Oxide [Magox 400] 400 mg PO DAILY #30 tab Nitroglycerin [Nitrostat] 0.4 mg SUBLINGUAL Q5M PRN #6 tab PRN Reason: Chest Pain Potassium Chloride [K-Tab ER] 20 meq PO DAILY #30 tablet.er Spironolactone 25 mg PO DAILY #30 tab Primary Care Physician: Jesus Sarah [NON-STAFF] - Please follow up with your Primary Care Physician in: 1 week Disposition: Home Minutes spent on discharge:: 35 Patient Condition:: Stable Medical Necessity - Tobacco Use Smoking Status: Current every day smoker Tobacco Use: Cigarettes Meaningful Use Info Meaningful Use Diagnoses (Choose all that apply): CHF - CHF KENNETH/ARB ordered at discharge?: Yes Documented LVEF (%): 15 <Juan R Schreiber - Last Filed: 08/07/18 16:08> Discharge Date and Diagnosis - Secondary Discharge Diagnosis Chronic Problems (Last Reviewed 08/06/18 @ 08:21 by Benjamin Cerna MD) CAD (coronary artery disease) (Chronic) Severe left ventricular systolic dysfunction (Chronic) Polysubstance abuse (Chronic) marijuana, cocaine 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/28/17) SICD per Dr Berry @ [facility] Nicotine dependence (Chronic) Old myocardial infarction (Chronic) Hypertension (Chronic) History of coronary artery stent placement (Chronic 04/30/18) PCI-MEHRDAD-LAD 08/2014, ICO-QKH-Xtos-Mid CX and Prox-Mid RCA 03/18/15, Thrombosis of CX stent 03/25/15. MEHRDAD to RCA (2.7 X 16 Promus Synergy) 04/30/2018 Atherosclerosis of coronary artery of campo heart without angina pectoris (Chronic) PCI-MEHRDAD-LAD 08/2014, EWL-BEX-Hnpk-Mid CX and Prox-Mid RCA 03/18/15, Thrombosis of CX stent 03/25/15 Ischemic cardiomyopathy (Chronic) EF 20% per echo 08/08/2016 Hyperlipidemia (Chronic) Type 2 diabetes mellitus (Chronic) Chronic systolic CHF (congestive heart failure) (Chronic) Hospital Course and Treatment Summary of Care Provided: TThis patient was seen in conjunction with Alfredo Gifford PA-C . I have independently interviewed and examined the patient and reviewed pertinent h istorical, laboratory, and other data. Please refer to Alfredo Gifford PA-C note for details of this patient's presentation, findings, and recommendations. I have reviewed Alfredo Gifford PA-C note and concur with documented findings. In brief, [id number] gentleman with known ischemic cardiomyopathy with an ejection fraction of 50% who presented with progressive shortness of breath and assessment of acute on chronic systolic heart failure made admitted to a monitored bed for further management Assessment: 1. Acute on chronic systolic heart failure 2. Ventricular thrombus Case discussed with Dr. Ramirez with cardiology who advised against systemic anticoagulation due to noncompliance 3. CAD with previous PCI and subsequent stent placement 4. Diabetes mellitus type 2 5. Ischemic cardiomyopathy with ejection fraction of 15% 6. Moderate hypertension 7. Polysubstance abuse 8. Mild intermittent asthma 9. History of medical noncompliance 10. DVT prophylaxis SC Lovenox Hospital course: As documented above by Alfredo Gifford PA-C - Physical Exam Vital Signs Temp Pulse Resp BP Pulse Ox 97.6 F L 83 17 109/69 93 08/07/18 08:23 08/07/18 08:23 08/07/18 08:23 08/07/18 08:23 08/07/18 10:37 Oxygen Flow Rate (L/min) 2 Oxygen Delivery Method Room Air Weight: 88.4 kg Body Mass Index (BMI) 26.4 Finger Stick Blood Glucose 345 Intake and Output for Last 24 Hours 08/05/18 08/06/18 08/07/18 23:59 23:59 23:59 Intake Total 0 / 0 1975 / 1975 1124 / 1124 Output Total 1565 / 1565 3690 / 3690 1175 / 1175 Balance -1565 / -1565 -1714 / -1714 -51 / -51 Microbiology Past 72 Hours 08/05/18 18:38 Influenza Types A,B Direct FA (FAREED) - Final Mucosa - Nasopharyngeal Laboratory Tests Past 24 Hrs 08/07/18 05:25 Sodium 141 Potassium 3.6 Chloride 104 Carbon Dioxide 30.0 Anion Gap 7 BUN 13 Creatinine 0.86 Estim Creat Clear Calc 125.32 Est GFR (MDRD) Af Amer 127 Est GFR (MDRD) Non-Af 105 BUN/Creatinine Ratio 15.2 Glucose 172 H Calcium 8.3 L POC Glucose 04/09/19 04/09/19 04/09/19 11:48 06:46 02:56 POC Glucose 444 H 218 H 116 H 08/06/18 08/06/18 21:15 17:16 POC Glucose 341 H 196 H Code Visit Inpatient E&M: 78087 Disch Hosp
--- NOTE | 2018-08-08 15:28 | CASEMGMT ---
ILEANA GUAJARDO Discharge F/U Phone Call LACE: 14 Strata: 4 Discharge date: 08/07/18 Call date: 08/08/18 Call time: 1529 Attempted to reach pt on all three phone numbers that he had listed without success, unable to leave messages on all phones at this time. [place] ILEANA CM Admission dx: Acute exacerbation of CHF
== END 2018-08-07 13:01 | disposition home or self-care (01) | DRG 194 ==
LOC: ED 20:39 → PCU 21:13
PROVIDERS: Physician Assistant; Admitting Provider Hospitalist; Emergency Provider Emergency Medicine; Family Provider Internal Medicine; PCP Internal Medicine; Visit Provider Internal Medicine
DX: I11.0 Hypertensive heart disease with heart failure (principal); I50.23 Acute on chronic systolic (congestive) heart failure; I25.5 Ischemic cardiomyopathy; I25.10 Atherosclerotic heart disease of native coronary artery without angina pectoris; E11.9 Type 2 diabetes mellitus without complications; J44.9 Chronic obstructive pulmonary disease, unspecified; I51.3 Intracardiac thrombosis, not elsewhere classified; F14.10 Cocaine abuse, uncomplicated; F12.10 Cannabis abuse, uncomplicated; Z91.14 Patient's other noncompliance with medication regimen; Z95.810 Presence of automatic (implantable) cardiac defibrillator; E78.5 Hyperlipidemia, unspecified; I25.2 Old myocardial infarction; F17.210 Nicotine dependence, cigarettes, uncomplicated; Z95.5 Presence of coronary angioplasty implant and graft; I27.20 Pulmonary hypertension, unspecified
CPT/HCPCS: 36415; 36600; 71045; 80048; 80307; 81001; 82040; 82803; 82962; 83605; 83735; 83880; 84484; 85025; 85027; 87804; 93005; 94640; 97162; 97165; 97530; 99284; 99406; A4216; J1940

== ENCOUNTER 2018-08-18 10:56 | Inpatient (IN) | payer MEDICAID, SELFPAY ==
[2018-04-30 13:15] VITALS: BMI 25.9
[2018-08-05 22:18] VITALS: BMI 26.4
[2018-08-18] VITALS (12 sets, daily range): BP systolic 126–137; BP diastolic 74–93; PULSE 87–109; RESP 16–36; TEMP 36.5–36.9; O2SAT 2–99; BMI 26.4; BMI 26.6
--- NOTE | 2018-08-18 11:09 | RAD_ITS ---
STUDY: X-RAY CHEST REASON FOR EXAM: Male, 42 years old. Shortness of breath TECHNIQUE: Single AP portable view of the chest. COMPARISON: 08/05/2018 FINDINGS: Lungs are mildly hypoinflated; patchy airspace disease in both lower lobes. No focal consolidation or effusions. There is no demonstrated pleural abnormality. Single-lead pacing device. There is mild cardiac enlargement. Normal mediastinum and kelly. Normal visualized pulmonary arteries. Normal visualized aortic arch and descending thoracic aorta. Normal visualized thoracic spine. Normal visualized ribs, clavicles, and shoulders. There is no demonstrated abnormality of the visualized soft tissue structures of the upper abdomen. RAD/Chest 1 View (Portable) IMPRESSION: Patchy airspace disease in both lower lobes. Not significantly changed since prior exam. Remainder is stable Electronically Signed: Bishop Brito DO at 11:32 EDT Tel , Service support ,
--- NOTE | 2018-08-18 11:09 | EKG12_ITS ---
Test Reason : SOB Blood Pressure : / mmHG Vent. Rate : 102 BPM Atrial Rate : 102 BPM P-R Int : 174 ms QRS Dur : 092 ms QT Int : 366 ms P-R-T Axes : 052 -62 091 degrees QTc Int : 477 ms Sinus tachycardia Possible Left atrial enlargement Left anterior fascicular block Anteroseptal infarct , age undetermined Abnormal ECG Confirmed by KATRINA MCKEON, SAMANTHA ([id number]), editorial clerk EDELMIRA RIVAS ([id number]) on 08/21/2018 2:01:15 PM Referred By: CORTES Confirmed By:SAMANTHA HERNDON MD
--- NOTE | 2018-08-18 11:16 | ED.DCSUM_ITS ---
- ER Visit Summary Date of Service: 08/18/18 Chief Complaint: Shortness of breath History of Present Illness: The patient is a 42 M presenting with shortness of breath and leg swelling. He states this started 3 days ago. He states he was unable to sleep at night due to inability to lay flat. He also complains of shortness of breath with exertion. He denies chest pain. He was admitted August 05 for similar complaints. At that time he admitted to noncompliance. He states he has been compliant with his medications since his discharge. He does not wear home O2. Physical Examination: Vitals are stable. Patient is afebrile. Alert no acute distress. HEENT exam is unremarkable. Neck is supple. Lungs are diminished bilaterally. Tachypnea Heart is regular rate and rhythm. Abdomen is soft nontender nondistended. Extremities symmetric edema Skin is warm and dry. No focal neurologic deficit. Remainder of exam is unremarkable. Emergency Department Course and Treatment: EKG is sinus rate of 102 unchanged from previous. Chest x-ray shows patchy airspace disease in both lower lobes. Not significantly changed since prior exam. CBC unremarkable. ABG shows pH 7.41, PCO2 41.1, PO2 69, HCO3 26.1. Chemistries show glucose 568. Troponin indeterminate at 0.049. BNP 1174. Patient was given Lasix IV. He was given insulin subcutaneously. Patient ambulated with a pulse ox between 91-93%. He continues to be tachypneic with a respiratory rate of 36. Discussed with the hospitalist for admission. Disposition: Admission Impression: CHF exacerbation, hyperglycemia This note was generated with [employer] dictation software. It may contain incorrect words, spelling, and punctuation that were not noted in review of the chart prior to signing ED Disposition - Plan for ED Patient: Referrals: Tammie Nieves MD [STAFF PHYSICIAN] -
[2018-08-18 11:35] LABS: Allen Test POS; Base Excess 1 mmol/L (-2 to +2); Bicarbonate 26.1 mmol/L (22-26); Blood Gas Specimen Type ART; O2 Delivery Device Room Air; PO2 69 mmHG (75-100); SITE R Radial; SO2 94 % (95-99); Time Given 1125; Total Carbon Dioxide 27 mmol/L; pCO2 41.1 mmHg (35-45); pH 7.41 (7.35-7.45)
[2018-08-18 12:10] LABS: Absolute Lymphocyte Count 2.15 X10^3/ul (0.83-4.51); Absolute Neutrophil Count 5.5 X10^3/uL (2.0-7.7); Basophil# 0.02 X10^3/uL; Basophil% 0.2 % (0-1); Eosinophil# 0.26 X10^3/uL; Eosinophils% 3.1 % (0-5); Hemoglobin 14.3 g/dl (13.0-16.5); Lymphocyte # 2.15 X10^3/ul (4.0); Lymphocyte % 25.4 % (19-41); Mean Corpuscular Hgb 29.8 pg (27.0-32.0); Mean Corpuscular Volume 87.5 fL (80-94); Mean Platelet Vol. 10.4 fl (6.2-12.0); Monocyte% 5.9 % (0-10); Neutrophil # 5.51 X10^3/uL (2.7-7.7); Neutrophil % 65.3 % (47-70); Platelet Count 228 K/mm3 (150-450); RBC Distribution Width CV 13.8 % (11.6-14.6); RBC Distribution Width SD 44.3 fl (35.1-43.9); White Blood Count 8.5 K/mm3 (4.4-11.0)
[2018-08-18 12:11] LABS: POSITIVE COUNT NO; POSITIVE DIFFERENTIAL NO; POSITIVE MORPHOLOGY NO
[2018-08-18 12:32] LABS: Anion Gap 8 (5-15); BUN 8 mg/dL (7-18); BUN/Creat Ratio 7.1 RATIO (10-20); Calcium,Total 8.6 mg/dL (8.5-10.1); Chloride 100 mmol/L (98-107); Creatinine, Serum 1.13 mg/dL (0.70-1.30); EST Glomerular Filtration Rate 76 mL/min (>60); Est Glom Filt Rate - Afr Amer 92 mL/min (>60); Estimated Creatinine Clearance 95.38 ml/min; Glucose 568 mg/dL (74-106); Potassium 4.4 mmol/L (3.5-5.1); Sodium Level 136 mmol/L (136-145)
[2018-08-18 12:38] LABS: BNP,B-Type NATRIURETIC PEPTIDE 1174.5 pg/mL (0-100)
[2018-08-18] MEDS: Insulin Lispro 100 UNIT/ML INSULN.PEN 15 UNIT SC (12:59)
[2018-08-18] MEDS: Furosemide 100 MG/10 ML Vial 80 MG IV ×2 (13:00→22:33)
--- NOTE | 2018-08-18 13:15 | ED.RN ---
115 ACUTE ON CHRONIC SYSTOLIC CHF, HYPOXEMIA, HYPERGLYCEMIA ASHELFAH
--- NOTE | 2018-08-18 13:17 | PCM.HP.STD ---
Problem List (1) Acute exacerbation of CHF (congestive heart failure) Status: Acute Qualifiers: (2) CAD (coronary artery disease) Status: Chronic Qualifiers: (3) Old myocardial infarction Status: Chronic (4) Ischemic cardiomyopathy Status: Chronic Comment: EF 20% per echo 08/08/2016 (5) Hyperlipidemia Status: Chronic Qualifiers: (6) Type 2 diabetes mellitus Status: Chronic Qualifiers: (7) Chronic systolic CHF (congestive heart failure) Status: Chronic History of Present Illness Date of Admission: 08/18/18 Chief Complaint: Shortness of breath. The patient is a 42 year old M with past medical history as mentioned above presented to the emergency room because of shortness of breath. His illness started around 3-4 days ago with progressively increasing shortness of breath, initially was with minimal exertion and today, it was even at rest, exaggerated by minimal activity, not relieved with rest, associated with cough without sputum production as well as increasing leg edema. He denied associated chest pain, palpitation, dizziness or lightheadedness. He reported orthopnea and he mentioned that he was not able to sleep for the last couple of days. Patient admitted that he did not take his Lasix yesterday and he did not inject himself with insulin as well. He denies fever or chills. In the emergency department, patient was dyspneic and tachypneic at rest, afebrile, blood pressure and heart rate were stable. His routine blood work was remarkable for hyperglycemia with glucose of 568, otherwise normal. His EKG revealed sinus tachycardia without evidence of acute or new ischemic changes. His troponin was borderline elevated at 0.049. BNP was elevated as well. Because he was lethargic and sleepy, ABG was done and revealed pH of 7.41, PCO2 41 and PO2 of 69. Chest x-ray revealed cardiomegaly and pulmonary vascular congestion mainly at the bases. 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 MEHRDAD to RCA (2.7 X 16 Promus Synergy) 04/30/2018 Atherosclerosis of coronary artery of [place] heart without angina pectoris (Chronic) PCI-MEHRDAD-LAD 08/2014, [id number]-Vlim-Mid CX and Prox-Mid RCA 03/18/15, Thrombosis of CX stent 03/25/15 Ischemic cardiomyopathy (Chronic) EF 20% per echo 08/08/2016 Hyperlipidemia (Chronic) Type 2 diabetes mellitus (Chronic) Chronic systolic CHF (congestive heart failure) (Chronic) Medical History: Medical History (Last Reviewed 08/06/18 @ 08:21 by Benjamin Cerna MD) Severe left ventricular systolic dysfunction (Chronic) I51.9 Polysubstance abuse (Chronic) F19.10 marijuana, cocaine Nicotine dependence (Chronic) F17.200 Old myocardial infarction (Chronic) I25.2 Hypertension (Chronic) I10 Atherosclerosis of coronary artery of [place] heart without angina pectoris (Chronic) I25.10 PCI-MEHRDAD-LAD 08/2014, [id number]-Rqqo-Mid CX and Prox-Mid RCA 03/18/15, Thrombosis of CX stent 03/25/15 Ischemic cardiomyopathy (Chronic) I25.5 EF 20% per echo 08/08/2016 Hyperlipidemia (Chronic) E78.5 Type 2 diabetes mellitus (Chronic) E11.9 Chronic systolic CHF (congestive heart failure) (Chronic) I50.22 Depression F32.9 Peripheral neuropathy G62.9 Allergies No Known Allergies Allergy (Verified 08/18/18 10:57) Home Medications: Ambulatory Orders Medication Instructions Recorded Insulin Aspart [Novolog Flexpen] units SC ACHS 07/06/18 Acetaminophen [Tylenol Tablet] 650 mg PO Q6H PRN PRN #120 tablet 08/07/18 Albuterol Aerosols [Ventolin 2.5 mg INHALATION Q2H PRN PRN #60 08/07/18 Aerosols] vial.neb. Albuterol IH (ProAir) [Proair Hfa] 1 puff INHALATION Q6H PRN PRN #1 08/07/18 inhaler Aspirin E.C. [Ecotrin] 81 mg PO TID #90 tablet 08/07/18 Atorvastatin Calcium 40 mg PO DAILY #30 tablet 08/07/18 Carvedilol 6.25 mg PO BID #60 tab 08/07/18 Clopidogrel Bisulfate [Plavix] 75 mg PO DAILY #30 tablet 08/07/18 Furosemide [Lasix] 80 mg PO BIDLX #60 tablet 08/07/18 Insulin Glargine,Hum.rec.anlog 14 unit SQ DAILY #1 insuln.pen 08/07/18 [Basaglar Kwikpen U-100] Isosorbide Mononitrate [Isosorbide 30 mg PO DAILY #30 tab.er.24h 08/07/18 Mononitrate ER] Losartan Potassium [Cozaar] 25 mg PO DAILY #30 tab 08/07/18 Magnesium Oxide [Magox 400] 400 mg PO DAILY #30 tab 08/07/18 Nitroglycerin [Nitrostat] 0.4 mg SUBLINGUAL Q5M PRN #6 tab 08/07/18 Potassium Chloride [K-Tab ER] 20 meq PO DAILY #30 tablet.er 08/07/18 Spironolactone 25 mg PO DAILY #30 tab 08/07/18 hydrOXYzine pamoate capsule 50 mg PO TID PRN PRN #60 capsule 08/07/18 [Vistaril pamoate capsule] Surgical History: Surgical History (Last Reviewed 08/06/18 @ 08:21 by Benjamin Cerna MD) 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) Onset Date: 06/28/[address] Berry @ [facility] History of coronary artery stent placement (Chronic) Onset Date: 04/30/18 Z95.5 PCI-MEHRDAD-LAD 08/2014, FCT-SPZ-Urnp-Mid CX and Prox-Mid RCA 03/18/15, Thrombosis of CX stent 03/25/15. MEHRDAD to RCA (2.7 X 16 Promus Synergy) 04/30/2018 History of appendectomy Z90.49 Surgical History: - - Cardiac stent August 2014 Smoking Status: Current every day smoker Alcohol: None Drugs: None - *Family History Paternal Family History: Family History (Last Reviewed 08/06/18 @ 08:21 by Benjamin Cerna MD) Mother CAD (coronary artery disease) Diabetes Hypertension Myocardial infarction Father CAD (coronary artery disease) Diabetes Hypertension Myocardial infarction Brother Hypertension History Items: Diabetes, High Cholesterol, Heart Disease, Hypertension Maternal Family History: Family History (Last Reviewed 08/06/18 @ 08:21 by Benjamin Cerna MD) Mother CAD (coronary artery disease) Diabetes Hypertension Myocardial infarction Father CAD (coronary artery disease) Diabetes Hypertension Myocardial infarction Brother Hypertension History Items: Diabetes, High Cholesterol, Heart Disease, Hypertension Review of Systems Constitutional: Reports: Anorexia. Denies: Chills, Fever, Weakness Eyes: Denies: Blurred vision, Double vision, Drainage, Redness HEENT: Denies: Difficulty Hearing, Ear Pain, Eye Pain, Nasal Congestion, Sore Throat Cardiovascular: Reports: Edema, Orthopnea. Denies: Chest Pain, Chest Pressure, Heaviness, Light Headedness, Palpitations, Syncope Respiratory: Reports: Cough, Shortness of Breath, Shortness of breath at rest, Shortness of breath upon exertion, Wheezing. Denies: Sputum production Gastrointestinal: Denies: Abdominal Pain, Constipation, Diarrhea, Nausea, Vomiting Genitourinary: Denies: Dysuria, Frequency, Hematuria Musculoskeletal: Denies: Arm Pain, Back Pain, Foot Pain Skin: Denies: Dryness, Rash Neurological: Denies: Balance problems, Double vision, Change in Speech, Slurred speech, Confusion, Headaches, Incoordination, Numbness Psychiatric: Denies: Anxiety, Depression VTE Information - Inpt Only VTE Present on Admission: No VTE Mechan Device Prophylaxis: None VTE Pharm Prophylaxis ordered?: Yes - Physical Exam General: Alert, Oriented x3, Cooperative, - - In mild to moderate respiratory distress. HEENT: Atraumatic, PERRLA, EOMI, Normocephalic Oral: Moist Mucosa, No Gingival or Mucosal Lesions/ Ulcerations Neck: Supple, No JVD, Negative Carotid Bruits, Trachea Midline, Thyroid Normal Size and Texture Lungs: Rales, Rhonchi, Short of Breath, Tachypneic, Wheezes, - - Decreased breath sounds bilateral, bilateral basal crackles, occasional wheezes. Cardiovascular: Regular rate, Regular Rhythm, Normal S1, Normal S2, PMI Normal, Tachycardic Abdomen: Bowel Sounds Present, Soft, Non Tender, Non-Distended, No Hepato-splenomegaly Extremities: No clubbing, No cyanosis, Edema - + Edema. Skin: No rashes, No breakdown Lymphatic: No Cervical, Supraclavicular, or Inguinal Adenopathy Neurological: Cranial nerves II-XII grossly intact, Motor Exam 5/5 strength throughout Psych/Mental Status: Normal Affect, Appropriate, Alert and oriented to time, place, person, mood and affect Vital Signs Temp Pulse Resp BP Pulse Ox 97.7 F L 109 H 36 H 130/90 H 99 08/18/18 10:58 08/18/18 12:00 08/18/18 12:00 08/18/18 10:58 08/18/18 12:00 Oxygen Flow Rate (L/min) 2 Oxygen Delivery Method Nasal Cannula Weight: 195 lb Body Mass Index (BMI) 26.4 Finger Stick Blood Glucose 345 Laboratory Tests Past 24 Hrs 08/18/18 08/18/18 08/18/18 11:31 11:55 11:55 WBC 8.5 RBC 4.80 Hgb 14.3 Hct 42.0 MCV 87.5 MCH 29.8 MCHC 34.0 RDW 13.8 RDW Differential 44.3 H Plt Count 228 MPV 10.4 Immature Gran % (Auto) 0.100 Neut % (Auto) 65.3 Lymph % (Auto) 25.4 [place] % (Auto) 5.9 Eos % (Auto) 3.1 Baso % (Auto) 0.2 Absolute Neuts (auto) 5.5 Absolute Lymphs (auto) 2.15 Total Counted Not Reportable Specimen Type ART Sample Site R Radial pH 7.41 Bicarbonate Actual 26.1 H POC Total CO2 27 Base Excess 1 O2 Saturation 94 L ABG pCO2 41.1 ABG pO2 69 L Sami Test POS O2 Delivery Device Room Air Blood Gas Notified Whom ED Blood Gas Notified Time 1125 Sodium 136 Potassium 4.4 Chloride 100 Carbon Dioxide 28.0 Anion Gap 8 BUN 8 Creatinine 1.13 Estim Creat Clear Calc 95.38 Est GFR (MDRD) Af Amer 92 Est GFR (MDRD) Non-Af 76 BUN/Creatinine Ratio 7.1 L Glucose 568 H* Calcium 8.6 Troponin I 0.049 H B-Natriuretic Peptide 08/18/18 11:55 WBC RBC Hgb Hct MCV MCH MCHC RDW RDW Differential Plt Count MPV Immature Gran % (Auto) Neut % (Auto) Lymph % (Auto) [place] % (Auto) Eos % (Auto) Baso % (Auto) Absolute Neuts (auto) Absolute Lymphs (auto) Total Counted Specimen Type Sample Site pH Bicarbonate Actual POC Total CO2 Base Excess O2 Saturation ABG pCO2 ABG pO2 Sami Test O2 Delivery Device Blood Gas Notified Whom Blood Gas Notified Time Sodium Potassium Chloride Carbon Dioxide Anion Gap BUN Creatinine Estim Creat Clear Calc Est GFR (MDRD) Af Amer Est GFR (MDRD) Non-Af BUN/Creatinine Ratio Glucose Calcium Troponin I B-Natriuretic Peptide 1174.5 H Clinical Impression(s) from Imaging Studies Chest X-Ray 08/18/18 11:09 IMPRESSION: Patchy airspace disease in both lower lobes. Not significantly changed since prior exam. Remainder is stable Electronically Signed: Bishop Brito DO at 11:32 EDT Tel , Service support , Assessment/Plan All Active Problems (Last Reviewed 08/06/18 @ 08:21 by Benjamin Cerna MD) Acute exacerbation of CHF (congestive heart failure) (Acute) This is a 42 years old male patient presented to the emergency room because of worsening shortness of breath, cough and wheezing and was found to have acute on chronic systolic CHF with hypoxemia as well as hyperglycemia due to noncompliance and not taking his home medications. #1 acute on chronic systolic CHF: Due to noncompliance, patient admits not taking his Lasix yesterday. Chest x-ray reviewed, showed findings consistent with CHF. EKG revealed sinus tachycardia, no acute ischemic changes. Troponin is borderline elevated. He had an echocardiogram done on June, revealed ejection fraction of 15%, stage III diastolic dysfunction and moderate pulmonary hypertension. Plan: Admit to PCU, cardiac monitoring, serial cardiac enzymes, repeat EKG tomorrow morning, fluid restriction to less than 1500 cc daily, start IV Lasix, input output chart, continue aspirin, statins, Coreg, losartan and nitrates as well as spironolactone, PT OT evaluation and treatment. #2 acute hypoxic respiratory failure: Patient is dyspneic, tachypneic, requiring oxygen. ABG reviewed, revealed normal pH and PCO2, PO2 is 69. Plan for IV diuresis, albuterol as needed, incentive spirometer, chest physiotherapy. #3 hyperglycemia: Blood sugar on admission was 568. No evidence of DKA, serum bicarb is normal, pH 7.41. Patient admits that he did not use his insulin yesterday. He is noncompliant. Plan: Continue his home doses of glargine insulin, insulin sliding scale, Accu-Cheks every 6 hours. #4 CAD status post stents: EKG reviewed, troponin is minimally elevated. Patient denies any chest pain. Plan to continue aspirin, statins, Coreg, Plavix, nitrates and losartan. #5 ischemic cardiomyopathy/chronic systolic CHF/status post ICD: With acute exacerbation as mentioned above. Plan as above. #6 type 2 diabetes mellitus: Uncontrolled, patient is noncompliant. Plan to continue home doses of glargine insulin, sliding scale, Accu-Cheks as above. #7 hypertension: Blood pressure stable, continue Coreg, nitrate and losartan. #8 hyperlipidemia: Continue statins. #9 DVT prophylaxis: Subcu Lovenox. This note was generated with [employer] dictation software. It may contain incorrect words, spelling, and punctuation that were not noted in checking the note before signing. Code Visit Inpatient E&M: 53190 Init Hosp L3
--- NOTE | 2018-08-18 13:21 | HP.PCM_ITS ---
Problem List (1) Acute exacerbation of CHF (congestive heart failure) Status: Acute Qualifiers: (2) CAD (coronary artery disease) Status: Chronic Qualifiers: (3) Old myocardial infarction Status: Chronic (4) Ischemic cardiomyopathy Status: Chronic Comment: EF 20% per echo 08/08/2016 (5) Hyperlipidemia Status: Chronic Qualifiers: (6) Type 2 diabetes mellitus Status: Chronic Qualifiers: (7) Chronic systolic CHF (congestive heart failure) Status: Chronic History of Present Illness Date of Admission: 08/18/18 Chief Complaint: Shortness of breath. The patient is a 42 year old M with past medical history as mentioned above presented to the emergency room because of shortness of breath. His illness started around 3-4 days ago with progressively increasing shortness of breath, initially was with minimal exertion and today, it was even at rest, exaggerated by minimal activity, not relieved with rest, associated with cough without sputum production as well as increasing leg edema. He denied associated chest pain, palpitation, dizziness or lightheadedness. He reported orthopnea and he mentioned that he was not able to sleep for the last couple of days. Patient admitted that he did not take his Lasix yesterday and he did not inject himself with insulin as well. He denies fever or chills. In the emergency department, patient was dyspneic and tachypneic at rest, afebrile, blood pressure and heart rate were stable. His routine blood work was remarkable for hyperglycemia with glucose of 568, otherwise normal. His EKG revealed sinus tachycardia without evidence of acute or new ischemic changes. His troponin was borderline elevated at 0.049. BNP was elevated as well. Because he was lethargic and sleepy, ABG was done and revealed pH of 7.41, PCO2 41 and PO2 of 69. Chest x-ray revealed cardiomegaly and pulmonary vascular congestion mainly at the bases. Past Medical History Past Medical History (Chronic Problems): Chronic Problems (Last Reviewed 08/06/18 @ 08:21 by Benjamin Cerna MD) CAD (coronary artery disease) (Chronic) Severe left ventricular systolic dysfunction (Chronic) Polysubstance abuse (Chronic) marijuana, cocaine 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/28/17) SICD per Dr Berry @ [facility] Nicotine dependence (Chronic) Old myocardial infarction (Chronic) Hypertension (Chronic) History of coronary artery stent placement (Chronic 04/30/18) PCI-MEHRDAD-LAD 08/2014, [id number]-LAC-Kuny-Mid CX and Prox-Mid RCA 03/18/15, Thrombosis of CX stent 03/25/15. MEHRDAD to RCA (2.7 X 16 Promus Synergy) 04/30/2018 Atherosclerosis of coronary artery of [place] heart without angina pectoris (Chronic) PCI-MEHRDAD-LAD 08/2014, SVR-WMW-Fmgl-Mid CX and Prox-Mid RCA 03/18/15, Thrombosis of CX stent 03/25/15 Ischemic cardiomyopathy (Chronic) EF 20% per echo 08/08/2016 Hyperlipidemia (Chronic) Type 2 diabetes mellitus (Chronic) Chronic systolic CHF (congestive heart failure) (Chronic) Medical History: Medical History (Last Reviewed 08/06/18 @ 08:21 by Benjamin Cerna MD) Severe left ventricular systolic dysfunction (Chronic) I51.9 Polysubstance abuse (Chronic) F19.10 marijuana, cocaine Nicotine dependence (Chronic) F17.200 Old myocardial infarction (Chronic) I25.2 Hypertension (Chronic) I10 Atherosclerosis of coronary artery of [place] heart without angina pectoris (Chronic) I25.10 PCI-MEHRDAD-LAD 08/2014, QXH-YED-Qapi-Mid CX and Prox-Mid RCA 03/18/15, Th rombosis of CX stent 03/25/15 Ischemic cardiomyopathy (Chronic) I25.5 EF 20% per echo 08/08/2016 Hyperlipidemia (Chronic) E78.5 Type 2 diabetes mellitus (Chronic) E11.9 Chronic systolic CHF (congestive heart failure) (Chronic) I50.22 Depression F32.9 Peripheral neuropathy G62.9 Allergies No Known Allergies Allergy (Verified 08/18/18 10:57) Home Medications: Ambulatory Orders Medication Instructions Recorded Insulin Aspart [Novolog Flexpen] units SC ACHS 07/06/18 Acetaminophen [Tylenol Tablet] 650 mg PO Q6H PRN PRN #120 tablet 08/07/18 Albuterol Aerosols [Ventolin 2.5 mg INHALATION Q2H PRN PRN #60 08/07/18 Aerosols] vial.neb. Albuterol IH (ProAir) [Proair Hfa] 1 puff INHALATION Q6H PRN PRN #1 08/07/18 inhaler Aspirin E.C. [Ecotrin] 81 mg PO TID #90 tablet 08/07/18 Atorvastatin Calcium 40 mg PO DAILY #30 tablet 08/07/18 Carvedilol 6.25 mg PO BID #60 tab 08/07/18 Clopidogrel Bisulfate [Plavix] 75 mg PO DAILY #30 tablet 08/07/18 Furosemide [Lasix] 80 mg PO BIDLX #60 tablet 08/07/18 Insulin Glargine,Hum.rec.anlog 14 unit SQ DAILY #1 insuln.pen 08/07/18 [Basaglar Kwikpen U-100] Isosorbide Mononitrate [Isosorbide 30 mg PO DAILY #30 tab.er.24h 08/07/18 Mononitrate ER] Losartan Potassium [Cozaar] 25 mg PO DAILY #30 tab 08/07/18 Magnesium Oxide [Magox 400] 400 mg PO DAILY #30 tab 08/07/18 Nitroglycerin [Nitrostat] 0.4 mg SUBLINGUAL Q5M PRN #6 tab 08/07/18 Potassium Chloride [K-Tab ER] 20 meq PO DAILY #30 tablet.er 08/07/18 Spironolactone 25 mg PO DAILY #30 tab 08/07/18 hydrOXYzine pamoate capsule 50 mg PO TID PRN PRN #60 capsule 08/07/18 [Vistaril pamoate capsule] Surgical History: Surgical History (Last Reviewed 08/06/18 @ 08:21 by Benjamin Cerna MD) 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) Onset Date: 06/28/[address] Berry @ [facility] History of coronary artery stent placement (Chronic) Onset Date: 04/30/18 Z95.5 PCI-MEHRDAD-LAD 08/2014, GMT-CDD-Keqd-Mid CX and Prox-Mid RCA 03/18/15, Thrombosis of CX stent 03/25/15. MEHRDAD to RCA (2.7 X 16 Promus Synergy) 04/30/2018 History of appendectomy Z90.49 Surgical History: - - Cardiac stent August 2014 Smoking Status: Current every day smoker Alcohol: None Drugs: None - *Family History Paternal Family History: Family History (Last Reviewed 08/06/18 @ 08:21 by Benjamin Cerna MD) Mother CAD (coronary artery disease) Diabetes Hypertension Myocardial infarction Father CAD (coronary artery disease) Diabetes Hypertension Myocardial infarction Brother Hypertension History Items: Diabetes, High Cholesterol, Heart Disease, Hypertension Maternal Family History: Family History (Last Reviewed 08/06/18 @ 08:21 by Benjamin Cerna MD) Mother CAD (coronary artery disease) Diabetes Hypertension Myocardial infarction Father CAD (coronary artery disease) Diabetes Hypertension Myocardial infarction Brother Hypertension History Items: Diabetes, High Cholesterol, Heart Disease, Hypertension Review of Systems Constitutional: Reports: Anorexia. Denies: Chills, Fever, Weakness Eyes: Denies: Blurred vision, Double vision, Drainage, Redness HEENT: Denies: Difficulty Hearing, Ear Pain, Eye Pain, Nasal Congestion, Sore Throat Cardiovascular: Reports: Edema, Orthopnea. Denies: Chest Pain, Chest Pressure, Heaviness, Light Headedness, Palpitations, Syncope Respiratory: Reports: Cough, Shortness of Breath, Shortness of breath at rest, Shortness of breath upon exertion, Wheezing. Denies: Sputum production Gastrointestinal: Denies: Abdominal Pain, Constipation, Diarrhea, Nausea, Vomiting Genitourinary: Denies: Dysuria, Frequency, Hematuria Musculoskeletal: Denies: Arm Pain, Back Pain, Foot Pain Skin: Denies: Dryness, Rash Neurological: Denies: Balance problems, Double vision, Change in Speech, Slurred speech, Confusion, Headaches, Incoordination, Numbness Psychiatric: Denies: Anxiety, Depression VTE Information - Inpt Only VTE Present on Admission: No VTE Mechan Device Prophylaxis: None VTE Pharm Prophylaxis ordered?: Yes - Physical Exam General: Alert, Oriented x3, Cooperative, - - In mild to moderate respiratory distress. HEENT: Atraumatic, PERRLA, EOMI, Normocephalic Oral: Moist Mucosa, No Gingival or Mucosal Lesions/ Ulcerations Neck: Supple, No JVD, Negative Carotid Bruits, Trachea Midline, Thyroid Normal Size and Texture Lungs: Rales, Rhonchi, Short of Breath, Tachypneic, Wheezes, - - Decreased breath sounds bilateral, bilateral basal crackles, occasional wheezes. Cardiovascular: Regular rate, Regular Rhythm, Normal S1, Normal S2, PMI Normal, Tachycardic Abdomen: Bowel Sounds Present, Soft, Non Tender, Non-Distended, No Hepato- splenomegaly Extremities: No clubbing, No cyanosis, Edema - + Edema. Skin: No rashes, No breakdown Lymphatic: No Cervical, Supraclavicular, or Inguinal Adenopathy Neurological: Cranial nerves II-XII grossly intact, Motor Exam 5/5 strength throughout Psych/Mental Status: Normal Affect, Appropriate, Alert and oriented to time, place, person, mood and affect Vital Signs Temp Pulse Resp BP Pulse Ox 97.7 F L 109 H 36 H 130/90 H 99 08/18/18 10:58 08/18/18 12:00 08/18/18 12:00 08/18/18 10:58 08/18/18 12:00 Oxygen Flow Rate (L/min) 2 Oxygen Delivery Method Nasal Cannula Weight: 195 lb Body Mass Index (BMI) 26.4 Finger Stick Blood Glucose 345 Laboratory Tests Past 24 Hrs 08/18/18 08/18/18 08/18/18 11:31 11:55 11:55 WBC 8.5 RBC 4.80 Hgb 14.3 Hct 42.0 MCV 87.5 MCH 29.8 MCHC 34.0 RDW 13.8 RDW Differential 44.3 H Plt Count 228 MPV 10.4 Immature Gran % (Auto) 0.100 Neut % (Auto) 65.3 Lymph % (Auto) 25.4 [place] % (Auto) 5.9 Eos % (Auto) 3.1 Baso % (Auto) 0.2 Absolute Neuts (auto) 5.5 Absolute Lymphs (auto) 2.15 Total Counted Not Reportable Specimen Type ART Sample Site R Radial pH 7.41 Bicarbonate Actual 26.1 H POC Total CO2 27 Base Excess 1 O2 Saturation 94 L ABG pCO2 41.1 ABG pO2 69 L Sami Test POS O2 Delivery Device Room Air Blood Gas Notified Whom ED Blood Gas Notified Time 1125 Sodium 136 Potassium 4.4 Chloride 100 Carbon Dioxide 28.0 Anion Gap 8 BUN 8 Creatinine 1.13 Estim Creat Clear Calc 95.38 Est GFR (MDRD) Af Amer 92 Est GFR (MDRD) Non-Af 76 BUN/Creatinine Ratio 7.1 L Glucose 568 H* Calcium 8.6 Troponin I 0.049 H B-Natriuretic Peptide 08/18/18 11:55 WBC RBC Hgb Hct MCV MCH MCHC RDW RDW Differential Plt Count MPV Immature Gran % (Auto) Neut % (Auto) Lymph % (Auto) [place] % (Auto) Eos % (Auto) Baso % (Auto) Absolute Neuts (auto) Absolute Lymphs (auto) Total Counted Specimen Type Sample Site pH Bicarbonate Actual POC Total CO2 Base Excess O2 Saturation ABG pCO2 ABG pO2 Sami Test O2 Delivery Device Blood Gas Notified Whom Blood Gas Notified Time Sodium Potassium Chloride Carbon Dioxide Anion Gap BUN Creatinine Estim Creat Clear Calc Est GFR (MDRD) Af Amer Est GFR (MDRD) Non-Af BUN/Creatinine Ratio Glucose Calcium Troponin I B-Natriuretic Peptide 1174.5 H Clinical Impression(s) from Imaging Studies Chest X-Ray 08/18/18 11:09 IMPRESSION: Patchy airspace disease in both lower lobes. Not significantly changed since prior exam. Remainder is stable Electronically Signed: Bishop Brito DO at 11:32 EDT Tel , Service support , Assessment/Plan All Active Problems (Last Reviewed 08/06/18 @ 08:21 by Benjamin Cerna MD) Acute exacerbation of CHF (congestive heart failure) (Acute) This is a 42 years old male patient presented to the emergency room because of w orsening shortness of breath, cough and wheezing and was found to have acute on chronic systolic CHF with hypoxemia as well as hyperglycemia due to noncompliance and not taking his home medications. #1 acute on chronic systolic CHF: Due to noncompliance, patient admits not taking his Lasix yesterday. Chest x-ray reviewed, showed findings consistent with CHF. EKG revealed sinus tachycardia, no acute ischemic changes. Troponin is borderline elevated. He had an echocardiogram done on June, revealed ejection fraction of 15%, stage III diastolic dysfunction and moderate pulmonary hypertension. Plan: Admit to PCU, cardiac monitoring, serial cardiac enzymes, repeat EKG tomorrow morning, fluid restriction to less than 1500 cc daily, start IV Lasix, input output chart, continue aspirin, statins, Coreg, losartan and nitrates as well as spironolactone, PT OT evaluation and treatment. #2 acute hypoxic respiratory failure: Patient is dyspneic, tachypneic, requiring oxygen. ABG reviewed, revealed normal pH and PCO2, PO2 is 69. Plan for IV diuresis, albuterol as needed, incentive spirometer, chest physiotherapy. #3 hyperglycemia: Blood sugar on admission was 568. No evidence of DKA, serum bicarb is normal, pH 7.41. Patient admits that he did not use his insulin yesterday. He is noncompliant. Plan: Continue his home doses of glargine insulin, insulin sliding scale, Accu-Cheks every 6 hours. #4 CAD status post stents: EKG reviewed, troponin is minimally elevated. Patient denies any chest pain. Plan to continue aspirin, statins, Coreg, Plavix, nitrates and losartan. #5 ischemic cardiomyopathy/chronic systolic CHF/status post ICD: With acute exacerbation as mentioned above. Plan as above. #6 type 2 diabetes mellitus: Uncontrolled, patient is noncompliant. Plan to continue home doses of glargine insulin, sliding scale, Accu-Cheks as above. #7 hypertension: Blood pressure stable, continue Coreg, nitrate and losartan. #8 hyperlipidemia: Continue statins. #9 DVT prophylaxis: Subcu Lovenox. This note was generated with [employer] dictation software. It may contain incorrect words, spelling, and punctuation that were not noted in checking the note before signing. Code Visit Inpatient E&M: 22139 Init Hosp L3
[2018-08-18] MEDS: Acetaminophen 325 MG Tablet 650 MG PO (15:30)
[2018-08-18] MEDS: ALPRAZolam 0.5 MG Tablet PO (15:30)
[2018-08-18 16:01] LABS: Bedside Glucose 95 mg/dL (70-110)
[2018-08-18 18:05] LABS: Bedside Glucose 205 mg/dL (70-110)
[2018-08-18] MEDS: Insulin Lispro 100 UNIT/ML INSULN.PEN SC (18:10)
[2018-08-18] MEDS: Carvedilol 6.25 MG Tablet PO (22:33)
[2018-08-18] MEDS: Atorvastatin Calcium 40 MG Tablet PO (22:33)
[2018-08-19] VITALS (15 sets, daily range): BP systolic 95–130; BP diastolic 58–94; PULSE 82–102; RESP 16–22; TEMP 36.5–36.8; O2SAT 92–99
[2018-08-19 00:25] LABS: Bedside Glucose 475 mg/dL (70-110)
[2018-08-19] MEDS: Insulin Lispro 100 UNIT/ML INSULN.PEN 10 UNIT SC (00:48)
[2018-08-19 00:55] LABS: Glucose 485 mg/dL (74-106)
[2018-08-19] MEDS: Albuterol 2.5 MG/3 ML VIAL.NEB. INHALATION ×3 (04:11→15:16)
[2018-08-19] MEDS: Insulin Lispro 100 UNIT/ML INSULN.PEN SC ×5 (04:29→20:19)
--- NOTE | 2018-08-19 04:52 | CPS ---
Additional albuterol was needed. Pt. accidently dropped tx. and med spilled out of nebulizer. Albuterol was pulled and documented.
[2018-08-19 05:00] LABS: Absolute Lymphocyte Count 2.69 X10^3/ul (0.83-4.51); Absolute Neutrophil Count 6.5 X10^3/uL (2.0-7.7); Basophil# 0.02 X10^3/uL; Basophil% 0.2 % (0-1); Eosinophil# 0.36 X10^3/uL; Eosinophils% 3.5 % (0-5); Hematocrit 42.4 % (40-54); Hemoglobin 14.8 g/dl (13.0-16.5); Lymphocyte # 2.69 X10^3/ul (4.0); Lymphocyte % 26.4 % (19-41); Mean Corp Hgb Conc 34.9 g/gl (32-36); Mean Corpuscular Hgb 29.5 pg (27.0-32.0); Mean Corpuscular Volume 84.6 fL (80-94); Mean Platelet Vol. 10.1 fl (6.2-12.0); Monocyte# 0.57 X10^3/uL; Monocyte% 5.6 % (0-10); Neutrophil # 6.54 X10^3/uL (2.7-7.7); Neutrophil % 64.1 % (47-70); Platelet Count 234 K/mm3 (150-450); RBC Distribution Width CV 13.3 % (11.6-14.6); RBC Distribution Width SD 40.8 fl (35.1-43.9); Red Blood Count 5.01 M/mm3 (4.6-6.2); White Blood Count 10.2 K/mm3 (4.4-11.0)
[2018-08-19 05:04] LABS: POSITIVE COUNT NO; POSITIVE DIFFERENTIAL NO; POSITIVE MORPHOLOGY NO
[2018-08-19 05:27] LABS: Anion Gap 9 (5-15); BUN 10 mg/dL (7-18); BUN/Creat Ratio 10.6 RATIO (10-20); Calcium,Total 8.1 mg/dL (8.5-10.1); Chloride 99 mmol/L (98-107); Creatinine, Serum 0.94 mg/dL (0.70-1.30); EST Glomerular Filtration Rate 94 mL/min (>60); Est Glom Filt Rate - Afr Amer 114 mL/min (>60); Estimated Creatinine Clearance 114.66 ml/min; Glucose 425 mg/dL (74-106); Potassium 3.8 mmol/L (3.5-5.1); Sodium Level 135 mmol/L (136-145)
[2018-08-19 05:51] LABS: Bedside Glucose 404 mg/dL (70-110)
--- NOTE | 2018-08-19 05:55 | EKG12_ITS ---
Test Reason : AM EKG Blood Pressure : / mmHG Vent. Rate : 090 BPM Atrial Rate : 090 BPM P-R Int : 160 ms QRS Dur : 094 ms QT Int : 394 ms P-R-T Axes : 063 -65 079 degrees QTc Int : 481 ms Normal sinus rhythm Possible Left atrial enlargement Left anterior fascicular block Anteroseptal infarct , age undetermined Abnormal ECG When compared with ECG of 18-AUG-2018 11:17, MANUAL COMPARISON REQUIRED, DATA IS UNCONFIRMED Confirmed by LYNDSEY RHODES ([id number]), editor farm journal PANCHITO SUTTON ([id number]) on 08/23/2018 11:08:28 AM Referred By: MELBA Confirmed By:LYNDSEY RHODES
[2018-08-19] MEDS: 0.9% NaCl Peripheral Flush Adult/Peds IV ×3 (05:56→22:58)
[2018-08-19] MEDS: Furosemide 100 MG/10 ML Vial 80 MG IV ×3 (05:56→22:56)
--- NOTE | 2018-08-19 08:15 | PN_ITS ---
Subjective: Chief complaint: Follow-up after admission for acute on chronic systolic CHF, acute hypoxic respiratory failure and hyperglycemia. Patient seen and examined. No acute events overnight. Shortness of breath started to improve, feeling better. Denies chest pain. He is afebrile, blood pressure and heart rate are stable, pulse ox is 93% on 2 L. - Physical Exam General: Alert, Oriented x3, Cooperative, - - Minimally short of breath. HEENT: Atraumatic, PERRLA, EOMI, Normocephalic Oral: Moist Mucosa, No Gingival or Mucosal Lesions/ Ulcerations Neck: Supple, No JVD, Negative Carotid Bruits, Trachea Midline, Thyroid Normal Size and Texture Lungs: No wheeze, Diminished, Rales, Rhonchi, - - Decreased breath sounds bilateral, more at the bases with bilateral basal crackles, rhonchi. Cardiovascular: Regular rate, Regular Rhythm, Normal S1, Normal S2, PMI Normal Abdomen: Bowel Sounds Present, Soft, Non Tender, Non-Distended, No Hepato- splenomegaly Extremities: No clubbing, No cyanosis, Edema - Trace edema. Skin: No rashes, No breakdown Lymphatic: No Cervical, Supraclavicular, or Inguinal Adenopathy Neurological: Cranial nerves II-XII grossly intact, Neuro grossly intact Psych/Mental Status: Normal Affect, Appropriate, Alert and oriented to time, place, person, mood and affect Vital Signs Temp Pulse Resp BP Pulse Ox 98.3 F 95 20 H 130/94 H 99 08/19/18 05:57 08/19/18 07:10 08/19/18 05:57 08/19/18 05:57 08/19/18 05:57 Oxygen Flow Rate (L/min) 2 Oxygen Delivery Method Nasal Cannula Weight: 187 lb 9.814 oz Body Mass Index (BMI) 26.6 Finger Stick Blood Glucose 345 Intake and Output for Last 24 Hours 08/17/18 08/18/18 08/19/18 23:59 23:59 23:59 Intake Total 470 / 470 550 / 550 Output Total 2650 / 2650 1575 / 1575 Balance -2180 / -2180 -1025 / -1025 Laboratory Tests Past 24 Hrs 08/18/18 08/18/18 08/18/18 11:31 11:55 11:55 WBC 8.5 RBC 4.80 Hgb 14.3 Hct 42.0 MCV 87.5 MCH 29.8 MCHC 34.0 RDW 13.8 RDW Differential 44.3 H Plt Count 228 MPV 10.4 Immature Gran % (Auto) 0.100 Neut % (Auto) 65.3 Lymph % (Auto) 25.4 [place] % (Auto) 5.9 Eos % (Auto) 3.1 Baso % (Auto) 0.2 Absolute Neuts (auto) 5.5 Absolute Lymphs (auto) 2.15 Total Counted Not Reportable Specimen Type ART Sample Site R Radial pH 7.41 Bicarbonate Actual 26.1 H POC Total CO2 27 Base Excess 1 O2 Saturation 94 L ABG pCO2 41.1 ABG pO2 69 L Sami Test POS O2 Delivery Device Room Air Blood Gas Notified Whom ED MD Blood Gas Notified Time 1125 Sodium 136 Potassium 4.4 Chloride 100 Carbon Dioxide 28.0 Anion Gap 8 BUN 8 Creatinine 1.13 Estim Creat Clear Calc 95.38 Est GFR (MDRD) Af Amer 92 Est GFR (MDRD) Non-Af 76 BUN/Creatinine Ratio 7.1 L Glucose 568 H* Calcium 8.6 Troponin I 0.049 H B-Natriuretic Peptide 08/18/18 08/18/18 08/18/18 11:55 15:08 18:10 WBC RBC Hgb Hct MCV MCH MCHC RDW RDW Differential Plt Count MPV Immature Gran % (Auto) Neut % (Auto) Lymph % (Auto) [place] % (Auto) Eos % (Auto) Baso % (Auto) Absolute Neuts (auto) Absolute Lymphs (auto) Total Counted Specimen Type Sample Site pH Bicarbonate Actual POC Total CO2 Base Excess O2 Saturation ABG pCO2 ABG pO2 Sami Test O2 Delivery Device Blood Gas Notified Whom Blood Gas Notified Time Sodium Potassium Chloride Carbon Dioxide Anion Gap BUN Creatinine Estim Creat Clear Calc Est GFR (MDRD) Af Amer Est GFR (MDRD) Non-Af BUN/Creatinine Ratio Glucose Calcium Troponin I 0.046 H 0.055 H B-Natriuretic Peptide 1174.5 H 08/19/18 08/19/18 08/19/18 00:35 04:20 04:20 WBC 10.2 RBC 5.01 Hgb 14.8 Hct 42.4 MCV 84.6 MCH 29.5 MCHC 34.9 RDW 13.3 RDW Differential 40.8 Plt Count 234 MPV 10.1 Immature Gran % (Auto) 0.200 Neut % (Auto) 64.1 Lymph % (Auto) 26.4 [place] % (Auto) 5.6 Eos % (Auto) 3.5 Baso % (Auto) 0.2 Absolute Neuts (auto) 6.5 Absolute Lymphs (auto) 2.69 Total Counted Not Reportable Specimen Type Sample Site pH Bicarbonate Actual POC Total CO2 Base Excess O2 Saturation ABG pCO2 ABG pO2 Sami Test O2 Delivery Device Blood Gas Notified Whom Blood Gas Notified Time Sodium 135 L Potassium 3.8 Chloride 99 Carbon Dioxide 27.0 Anion Gap 9 BUN 10 Creatinine 0.94 Estim Creat Clear Calc 114.66 Est GFR (MDRD) Af Amer 114 Est GFR (MDRD) Non-Af 94 BUN/Creatinine Ratio 10.6 Glucose 485 H* 425 H Calcium 8.1 L Troponin I B-Natriuretic Peptide POC Glucose 08/19/18 08/19/18 08/18/18 04:05 00:16 17:59 POC Glucose 404 H 475 H* 205 H 08/18/18 15:33 POC Glucose 95 Medical Necessity - Tobacco Use Smoking Status: Current every day smoker Assessment/Plan All Active Problems (Last Reviewed 08/06/18 @ 08:21 by Benjamin Cerna MD) Acute exacerbation of CHF (congestive heart failure) (Acute) This is a 42 years old male patient presented to the emergency room because of worsening shortness of breath, cough and wheezing and was found to have acute on chronic systolic CHF with hypoxemia as well as hyperglycemia due to noncompliance and not taking his home medications. #1 acute on chronic systolic CHF: He is on IV Lasix, continued on Coreg, losartan and nitrates as well as Aldactone. It is attributed to noncompliance, patient has not been taking his medication as prescribed. He reported mild improvement of his symptoms, still requiring oxygen. Troponin is borderline elevated and flat. He had an echocardiogram done on June, revealed ej ection fraction of 15%, stage III diastolic dysfunction and moderate pulmonary hypertension. There was a confusion about the dose of Lasix he takes at home. According to the previous DC instructions and DC summaries, patient takes 80 mg of Lasix twice a day. According to the patient's friend who was reading the label on the bottle at home mentioned that he takes 40 mg twice a day. Plan: Continue same treatment, will call his pharmacy to verify his dosage of Lasix, repeat BMP tomorrow morning. #2 acute hypoxic respiratory failure: Secondary to above, symptoms are improving with IV diuresis. Continue same treatment. #3 hyperglycemia: Blood sugar still in the high range up to 400s. No evidence of DKA. He is back on his home regimen of Lantus and Humalog as well as sliding scale. Plan to change Lantus to Levemir twice daily. #4 CAD status post stents: Troponin are borderline elevated and flat. EKG without acute ischemic changes. This mild elevation of troponin is likely due to acute CHF. continue aspirin, statins, Coreg, Plavix, nitrates and losartan. #5 ischemic cardiomyopathy/chronic systolic CHF/status post ICD: With acute exacerbation as mentioned above. Plan as above. #6 type 2 diabetes mellitus: Uncontrolled, patient is noncompliant. Sugar is not controlled. Plan as above. #7 hypertension: Blood pressure stable, continue Coreg, nitrate and losartan. #8 hyperlipidemia: Continue statins. #9 DVT prophylaxis: Subcu Lovenox. This note was generated with [employer] dictation software. It may contain incorrect words, spelling, and punctuation that were not noted in checking the note before signing. Code Visit Inpatient E&M: 58135 Subs Hosp L2
[2018-08-19] MEDS: Aspirin E.C. 81 MG Tablet PO (08:28)
--- NOTE | 2018-08-19 11:54 | NURSING ---
Called [facility] per Dr. Ritchie's request to verify Lasix dose. Per pharmacy, patient is taking Lasix 80mg po bid. Last refill was 08/07/2018.
[2018-08-19] MEDS: Spironolactone 25 MG Tablet PO (12:13)
[2018-08-19] MEDS: Losartan Potassium 25 MG Tablet PO (12:14)
[2018-08-19] MEDS: Isosorbide Mononitrate 30 MG Tablet PO (12:14)
[2018-08-19] MEDS: Carvedilol 6.25 MG Tablet PO ×2 (12:14→22:56)
[2018-08-19] MEDS: Clopidogrel Bisulfate 75 MG Tablet PO (12:15)
[2018-08-19] MEDS: Magnesium Oxide 400 MG Tablet PO (12:15)
--- NOTE | 2018-08-19 12:16 | CPS ---
1103- during 1100 aerosol, patient was noted to have 30 sec apneas and was breathing in the pattern of cheynne-jacob
[2018-08-19] MEDS: Enoxaparin 40 MG/0.4 ML Syringe SC (12:17)
[2018-08-19 12:35] LABS: Bedside Glucose 350 mg/dL (70-110)
[2018-08-19 15:56] LABS: Bedside Glucose 308 mg/dL (70-110)
[2018-08-19 16:20] LABS: Bedside Glucose 367 mg/dL (70-110)
[2018-08-19 22:15] LABS: Bedside Glucose 342 mg/dL (70-110)
[2018-08-19] MEDS: Atorvastatin Calcium 40 MG Tablet PO (22:56)
[2018-08-20] VITALS (7 sets, daily range): BP systolic 101–115; BP diastolic 75–81; PULSE 75–101; RESP 16–20; TEMP 36.4–36.7; O2SAT 94–100
[2018-08-20 00:05] LABS: Bedside Glucose 377 mg/dL (70-110)
[2018-08-20] MEDS: Insulin Lispro 100 UNIT/ML INSULN.PEN SC ×4 (00:08→11:54)
[2018-08-20 04:41] LABS: Bedside Glucose 321 mg/dL (70-110)
[2018-08-20] MEDS: 0.9% NaCl Peripheral Flush Adult/Peds IV (06:11)
[2018-08-20] MEDS: Furosemide 100 MG/10 ML Vial 80 MG IV (06:11)
[2018-08-20 06:41] LABS: Anion Gap 8 (5-15); BUN 11 mg/dL (7-18); BUN/Creat Ratio 9.9 RATIO (10-20); Calcium,Total 8.4 mg/dL (8.5-10.1); Chloride 98 mmol/L (98-107); Creatinine, Serum 1.11 mg/dL (0.70-1.30); EST Glomerular Filtration Rate 78 mL/min (>60); Est Glom Filt Rate - Afr Amer 94 mL/min (>60); Glucose 353 mg/dL (74-106); Potassium 3.8 mmol/L (3.5-5.1); Sodium Level 136 mmol/L (136-145)
[2018-08-20] MEDS: Spironolactone 25 MG Tablet PO (09:08)
[2018-08-20] MEDS: Aspirin E.C. 81 MG Tablet PO (09:08)
[2018-08-20] MEDS: Carvedilol 6.25 MG Tablet PO (09:08)
[2018-08-20] MEDS: Losartan Potassium 25 MG Tablet PO (09:08)
[2018-08-20] MEDS: Magnesium Oxide 400 MG Tablet PO (09:08)
[2018-08-20] MEDS: Isosorbide Mononitrate 30 MG Tablet PO (09:08)
[2018-08-20] MEDS: Clopidogrel Bisulfate 75 MG Tablet PO (09:08)
[2018-08-20] MEDS: Enoxaparin 40 MG/0.4 ML Syringe SC (09:10)
[2018-08-20 09:21] LABS: Bedside Glucose 443 mg/dL (70-110)
--- NOTE | 2018-08-20 09:45 | CASEMGMT ---
Readmission chart review: Pt initially admitted 08/05-08/07/18 for CHF exac. Pt has EF 15% and is non-compliant with meds/diet at home. See assessment completed by this RN CM on 08/07/18. This RN CM did set pt up with new PCP and pt has appt scheduled for 08/21/18 1345 and this will be changed if pt still admitted at that time but will encourage pt to make f/u appt whether it's 08/21 or at rescheduled time. Pt was readmitted 08/18/18 for c/o SOB/bilat lower ext swelling and states difficulty lying flat at night. Pt's pulse ox on room air upon arrival to triage was 100%. Raghu RN aware to test ambulatory pulse ox at this time. CM to follow for any further discharge planning/needs. [place] ILEANA GUAJARDO
--- NOTE | 2018-08-20 10:54 | PCM.PROGNOTE ---
Subjective: The patient is a 42-year-old male with a past medical history of severe left ventricular systolic dysfunction, polysubstance abuse, AICD presents, tobacco dependence, hypertension, history of PTCA/MEHRDAD to the LAD in August 2014 and to the proximal and mid circumflex and proximal mid RCA in March 2015 and to the RPL in March 2018, hyperlipidemia, type 2 diabetes mellitus, noncompliance with diet and medications and chronic systolic congestive heart failure who was admitted to the hospital on 08/18/2018 with acute on chronic systolic congestive heart failure due to noncompliance with Lasix. Blood sugars are uncontrolled, even in the hospital. Blood sugar at admission was 568 and there are still blood sugars in the 3 and 400s. This is his sixth readmission for congestive heart failure since May 01. The most recent echocardiogram was on 07/17/2018 and showed a 15% ejection fraction with regional wall motion abnormalities, stage III diastolic dysfunction and a ventricular thrombus measuring 2.1 x 1.5 cm. The PA pressure was 65. He is not on anticoagulation. Afebrile since admission. Vital signs are stable and he is 96% saturated on room air today. Potassium is 3.8 today. Fasting blood sugar is 353. - Physical Exam General: Alert, Oriented x3, Cooperative, No apparent distress HEENT: Atraumatic Oral: Moist Mucosa Neck: JVD, Bilateral Lungs: Clear to auscultation, Diminished - in the bases, - - not tachypneic, no conversational dyspnea Cardiovascular: Regular Rhythm, Normal S1, Normal S2, No rub noted, No Gallop Abdomen: Bowel Sounds Present, Soft, Non Tender, Non-Distended Extremities: No clubbing, No cyanosis, Edema - trace Neurological: Cranial nerves II-XII grossly intact, Neuro grossly intact Psych/Mental Status: Normal Affect, Appropriate Vital Signs Temp Pulse Resp BP Pulse Ox 97.5 F L 97 16 101/76 96 08/20/18 09:04 08/20/18 09:04 08/20/18 09:04 08/20/18 09:04 08/20/18 09:04 Oxygen Flow Rate (L/min) 2 Oxygen Delivery Method Room Air Weight: 183 lb 3.266 oz Body Mass Index (BMI) 26.6 Finger Stick Blood Glucose 345 Intake and Output for Last 24 Hours 08/18/18 08/19/18 08/20/18 23:59 23:59 23:59 Intake Total 470 / 470 1050 / 1050 270 / 270 Output Total 2650 / 2650 4300 / 4300 1025 / 1025 Balance -2180 / -2180 -3250 / -3250 -755 / -755 Laboratory Tests Past 24 Hrs 08/20/18 06:00 Sodium 136 Potassium 3.8 Chloride 98 Carbon Dioxide 30.0 Anion Gap 8 BUN 11 Creatinine 1.11 Estim Creat Clear Calc 97.10 Est GFR (MDRD) Af Amer 94 Est GFR (MDRD) Non-Af 78 BUN/Creatinine Ratio 9.9 L Glucose 353 H Calcium 8.4 L POC Glucose 08/20/18 08/20/18 08/20/18 08:20 04:28 00:01 POC Glucose 443 H 321 H 377 H 08/19/18 08/19/18 08/19/18 20:16 16:00 12:19 POC Glucose 342 H 367 H 350 H 08/19/18 08:24 POC Glucose 308 H Medical Necessity - Tobacco Use Smoking Status: Current every day smoker Assessment/Plan All Active Problems (Last Updated 08/20/18 @ 18:04 by Horace Woods DO) Acute exacerbation of CHF (congestive heart failure) (Acute) Impressions 1. acute on chronic systolic CHF due to uncontrolled HTN due to non-compliance with medications 2 ischemic CM - EF is 15% 3. DM II - uncontrolled 4. ventricular thrombus - not a candidate for anticoagulation per cardiology 5. Diastolic dysfunction 6. HTN - uncontrolled po Lasix Adjust the insulin We had a discussion about the increasing number of hospital admissions and decreasing length of time between admissions and what that may mean. He had some insight into his prognosis.....told me he does not care if he dies. He went on to say that no one up here takes care of him.......I pointed out that he is an adult nd should be taking care of himself if he expects to live
[2018-08-20] MEDS: Insulin Lispro 100 UNIT/ML INSULN.PEN 10 UNIT SC (11:53)
[2018-08-20 12:05] LABS: Bedside Glucose > 500 mg/dL (70-110)
[2018-08-20 17:11] LABS: Bedside Glucose 48 mg/dL (70-110)
[2018-08-20 17:40] LABS: Bedside Glucose 78 mg/dL (70-110)
[2018-08-20] MEDS: Furosemide 80 MG Tablet PO (17:49)
--- NOTE | 2018-08-20 18:06 | DCINST_ITS ---
You will use the following diet at home:: Calorie/Carbohydrate Controlled (specify 1200, 1400, etc), Cardiac Your food should be the consistency of: Regular Your liquids should be the consistency of: Regular/Thin Discharge Activity: Return to Normal Activity Call your doctor if you observe: Fever of 101 or Higher, Numbness or Tingling, Shortness of breath, Fainting spells, Swelling in the ankles, Chest pain Allergies/Adverse Reactions: Allergies No Known Allergies Allergy (Verified 08/18/18 10:57) Medications to take at Discharge Insulin Aspart [Novolog Flexpen] units SC ACHS 07/06/18 Acetaminophen [Tylenol Tablet] 650 mg PO Q6H PRN PRN #120 tablet 08/07/18 Albuterol Aerosols [Ventolin Aerosols] 2.5 mg INHALATION Q2H PRN PRN #60 vial.neb. 08/07/18 Albuterol IH (ProAir) [Proair Hfa] 1 puff INHALATION Q6H PRN PRN #1 inhaler 08/07/18 Aspirin E.C. [Ecotrin] 81 mg PO TID #90 tablet 08/07/18 Atorvastatin Calcium 40 mg PO DAILY #30 tablet 08/07/18 Carvedilol 6.25 mg PO BID #60 tab 08/07/18 Clopidogrel Bisulfate [Plavix] 75 mg PO DAILY #30 tablet 08/07/18 Isosorbide Mononitrate [Isosorbide Mononitrate ER] 30 mg PO DAILY #30 tab.er.24h 08/07/18 Losartan Potassium [Cozaar] 25 mg PO DAILY #30 tab 08/07/18 Magnesium Oxide [Magox 400] 400 mg PO DAILY #30 tab 08/07/18 Nitroglycerin [Nitrostat] 0.4 mg SUBLINGUAL Q5M PRN #6 tab 08/07/18 Potassium Chloride [K-Tab ER] 20 meq PO DAILY #30 tablet.er 08/07/18 Spironolactone 25 mg PO DAILY #30 tab 08/07/18 hydrOXYzine pamoate capsule [Vistaril pamoate capsule] 50 mg PO TID PRN PRN #60 capsule 08/07/18 Senna [Senokot] 2 tablet PO QHS PRN PRN 08/18/18 Furosemide [Lasix] 80 mg PO BIDLX 08/19/18 Insulin Glargine [Lantus SoloStar Pen] 20 units SC BID 30 Days #4 pen 08/20/18 The following prescriptions were given: Insulin Glargine [Lantus SoloStar Pen] 20 units SC BID 30 Days #4 pen Primary Care Physician: Tammie Nieves MD [STAFF PHYSICIAN] - Please follow up with your Primary Care Physician in: within the next week Test Results: Test results from this visit will be discussed in further detail at your follow- up appointment, if applicable. Proposed Discharge Date: 08/20/18
--- NOTE | 2018-08-20 18:06 | PCM.DC.SUM ---
Discharge Date and Diagnosis Date of Admission: 08/18/18 Date of Discharge: 08/20/18 - Primary Discharge Diagnosis Acute on chronic systolic congestive heart failure Acute hypoxic respiratory failure - ruled out...no high flow O2 required. 98% on RA at presentation to the ED Non-compliance with medication, diet, follow up with PCP Sinus tachycardia - Secondary Discharge Diagnosis Chronic Problems (Last Updated 08/20/18 @ 18:04 by Horace Woods DO) Noncompliance (Chronic) with medications and with follow up and with diet Left ventricular thrombus (Chronic) CAD (coronary artery disease) (Chronic) Severe left ventricular systolic dysfunction/ischemic cardiomyopathy (Chronic) - EF 15% in June 2018 Polysubstance abuse (Chronic) marijuana, cocaine 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/28/17) SICD per Dr Berry @ [facility] Nicotine dependence (Chronic) Old myocardial infarction (Chronic) Hypertension (Chronic) History of coronary artery stent placement (Chronic 04/30/18) PCI-MEHRDAD-LAD 08/2014, [id number]-Mid CX and Prox-Mid RCA 03/18/15, Thrombosis of CX stent 03/25/15. MEHRDAD to RCA (2.7 X 16 Promus Synergy) 04/30/2018 Atherosclerosis of coronary artery of [place] heart without angina pectoris (Chronic) PCI-MEHRDAD-LAD 08/2014, [id number]-Mid CX and Prox-Mid RCA 03/18/15, Thrombosis of CX stent 03/25/15 Hyperlipidemia (Chronic) Type 2 diabetes mellitus (Chronic) - uncontrolled due to non-compliance with diet and with insulin Chronic systolic CHF (congestive heart failure) (Chronic) Hospital Course and Treatment Imaging Results: Clinical Impression(s) from Imaging Studies Chest X-Ray 08/18/18 11:09 IMPRESSION: Patchy airspace disease in both lower lobes. Not significantly changed since prior exam. Remainder is stable Electronically Signed: Bishop Brito DO at 11:32 EDT Tel , Service support , Laboratory Results - last 24 hr 08/19/18 08/20/18 08/20/18 20:16 00:01 04:28 Sodium Potassium Chloride Carbon Dioxide Anion Gap BUN Creatinine Estim Creat Clear Calc Est GFR (MDRD) Af Amer Est GFR (MDRD) Non-Af BUN/Creatinine Ratio Glucose Calcium POC Glucose 342 H 377 H 321 H 08/20/18 08/20/18 08/20/18 06:00 08:20 11:48 Sodium 136 Potassium 3.8 Chloride 98 Carbon Dioxide 30.0 Anion Gap 8 BUN 11 Creatinine 1.11 Estim Creat Clear Calc 97.10 Est GFR (MDRD) Af Amer 94 Est GFR (MDRD) Non-Af 78 BUN/Creatinine Ratio 9.9 L Glucose 353 H Calcium 8.4 L POC Glucose 443 H > 500 H* 08/20/18 08/20/18 16:58 17:34 Sodium Potassium Chloride Carbon Dioxide Anion Gap BUN Creatinine Estim Creat Clear Calc Est GFR (MDRD) Af Amer Est GFR (MDRD) Non-Af BUN/Creatinine Ratio Glucose Calcium POC Glucose 48 L 78 none Operations: None Procedures: None Summary of Care Provided: The patient is a 42 year old M with a PMH of ischemic CM with a EF of 15%, uncontrolled HTN, uncontrolled DM II, CAD, dyslipidemia, polysubstance abuse and non-compliance with diet, medications and follow up with his PCP who presented to the ED c/o SOB. He admitted to non-compliance with Lasix and insulin. CXR showed pulmonary edema and the BNP was elevated. He was admitted to a monitored bed on PCU and started on IV Lasix in addition to his regular home medications. This is his 6th admission to the hospital since May for CHF/non-compliance. He was very lethargic in the ED and I suspect his tox screen would have been positive had it been ordered. His significant other related to the nurses that he has been using. With good BP control and diuresis the CHF improved quickly. Once again he was counselled about the importance of a low salt diet, medication compliance, PCP and cardiology follow up and fluid restriction. He was discharged home on 08/20/18. On the day of DC there was a rather heated exchange between the patient and the significant other. Would like to obtain a urine drug screen when he comes back to the ED. He was scheduled for an appt with a new PCP by the DC meeting planner an the appt was for 08/21/18. Objective: see the PE in the PN for 08/20/18 - Physical Exam Vital Signs Temp Pulse Resp BP Pulse Ox 97.5 F L 78 16 115/81 H 97 08/20/18 15:00 08/20/18 15:00 08/20/18 15:00 08/20/18 15:00 08/20/18 15:00 Oxygen Flow Rate (L/min) 2 Oxygen Delivery Method Room Air Weight: 183 lb 3.266 oz Body Mass Index (BMI) 26.6 Finger Stick Blood Glucose 345 Intake and Output for Last 24 Hours 08/18/18 08/19/18 08/20/18 23:59 23:59 23:59 Intake Total 470 / 470 1050 / 1050 1170 / 1170 Output Total 2650 / 2650 4300 / 4300 2875 / 2875 Balance -2180 / -2180 -3250 / -3250 -1705 / -1705 Laboratory Tests Past 24 Hrs 08/20/18 06:00 Sodium 136 Potassium 3.8 Chloride 98 Carbon Dioxide 30.0 Anion Gap 8 BUN 11 Creatinine 1.11 Estim Creat Clear Calc 97.10 Est GFR (MDRD) Af Amer 94 Est GFR (MDRD) Non-Af 78 BUN/Creatinine Ratio 9.9 L Glucose 353 H Calcium 8.4 L POC Glucose 08/20/18 08/20/18 08/20/18 17:34 16:58 11:48 POC Glucose 78 48 L > 500 H* 08/20/18 08/20/18 08/20/18 08:20 04:28 00:01 POC Glucose 443 H 321 H 377 H 08/19/18 20:16 POC Glucose 342 H Discharge Activity: Return to Normal Activity Call your doctor if you observe: Fever of 101 or Higher, Numbness or Tingling, Shortness of breath, Fainting spells, Swelling in the ankles, Chest pain Home Medications: Medications to take at Discharge Insulin Aspart [Novolog Flexpen] units SC ACHS 07/06/18 Acetaminophen [Tylenol Tablet] 650 mg PO Q6H PRN PRN #120 tablet 08/07/18 Albuterol Aerosols [Ventolin Aerosols] 2.5 mg INHALATION Q2H PRN PRN #60 vial.neb. 08/07/18 Albuterol IH (ProAir) [Proair Hfa] 1 puff INHALATION Q6H PRN PRN #1 inhaler 08/07/18 Aspirin E.C. [Ecotrin] 81 mg PO TID #90 tablet 08/07/18 Atorvastatin Calcium 40 mg PO DAILY #30 tablet 08/07/18 Carvedilol 6.25 mg PO BID #60 tab 08/07/18 Clopidogrel Bisulfate [Plavix] 75 mg PO DAILY #30 tablet 08/07/18 Isosorbide Mononitrate [Isosorbide Mononitrate ER] 30 mg PO DAILY #30 tab.er.24h 08/07/18 Losartan Potassium [Cozaar] 25 mg PO DAILY #30 tab 08/07/18 Magnesium Oxide [Magox 400] 400 mg PO DAILY #30 tab 08/07/18 Nitroglycerin [Nitrostat] 0.4 mg SUBLINGUAL Q5M PRN #6 tab 08/07/18 Potassium Chloride [K-Tab ER] 20 meq PO DAILY #30 tablet.er 08/07/18 Spironolactone 25 mg PO DAILY #30 tab 08/07/18 hydrOXYzine pamoate capsule [Vistaril pamoate capsule] 50 mg PO TID PRN PRN #60 capsule 08/07/18 Senna [Senokot] 2 tablet PO QHS PRN PRN 08/18/18 Furosemide [Lasix] 80 mg PO BIDLX 08/19/18 Insulin Glargine [Lantus SoloStar Pen] 20 units SC BID 30 Days #4 pen 08/20/18 Following Prescrptions Were Given to Patient: Insulin Glargine [Lantus SoloStar Pen] 20 units SC BID 30 Days #4 pen Primary Care Physician: Tammie Nieves MD [STAFF PHYSICIAN] - Please follow up with your Primary Care Physician in: within the next week Disposition: Home Minutes spent on discharge:: 40 Patient Condition:: Stable Medical Necessity - Tobacco Use Smoking Status: Current every day smoker Tobacco Use: Cigarettes Meaningful Use Info Meaningful Use Diagnoses (Choose all that apply): CHF - CHF KENNETH/ARB ordered at discharge?: Yes Documented LVEF (%): 15 Code Visit Inpatient E&M: 81246 Disch Hosp
--- NOTE | 2018-08-20 18:09 | DS.PCM_ITS ---
Discharge Date and Diagnosis Date of Admission: 08/18/18 Date of Discharge: 08/20/18 - Primary Discharge Diagnosis Acute on chronic systolic congestive heart failure Acute hypoxic respiratory failure - ruled out...no high flow O2 required. 98% on RA at presentation to the ED Non-compliance with medication, diet, follow up with PCP Sinus tachycardia - Secondary Discharge Diagnosis Chronic Problems (Last Updated 08/20/18 @ 18:04 by Horace Woods DO) Noncompliance (Chronic) with medications and with follow up and with diet Left ventricular thrombus (Chronic) CAD (coronary artery disease) (Chronic) Severe left ventricular systolic dysfunction/ischemic cardiomyopathy (Chronic) - EF 15% in June 2018 Polysubstance abuse (Chronic) marijuana, cocaine 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/28/17) SICD per Dr Berry @ [facility] Nicotine dependence (Chronic) Old myocardial infarction (Chronic) Hypertension (Chronic) History of coronary artery stent placement (Chronic 04/30/18) PCI-MEHRDAD-LAD 08/2014, ORH-TXH-Tpsr-Mid CX and Prox-Mid RCA 03/18/15, Thrombosis of CX stent 03/25/15. MEHRDAD to RCA (2.7 X 16 Promus Synergy) 04/30/2018 Atherosclerosis of coronary artery of [place] heart without angina pectoris (Chronic) PCI-MEHRDAD-LAD 08/2014, BNR-EBL-Ycpo-Mid CX and Prox-Mid RCA 03/18/15, Thrombosis of CX stent 03/25/15 Hyperlipidemia (Chronic) Type 2 diabetes mellitus (Chronic) - uncontrolled due to non-compliance with diet and with insulin Chronic systolic CHF (congestive heart failure) (Chronic) Hospital Course and Treatment Imaging Results: Clinical Impression(s) from Imaging Studies Chest X-Ray 08/18/18 11:09 IMPRESSION: Patchy airspace disease in both lower lobes. Not significantly changed since prior exam. Remainder is stable Electronically Signed: Bishop Brito DO at 11:32 EDT Tel , Service support , Laboratory Results - last 24 hr 08/19/18 08/20/18 08/20/18 20:16 00:01 04:28 Sodium Potassium Chloride Carbon Dioxide Anion Gap BUN Creatinine Estim Creat Clear Calc Est GFR (MDRD) Af Amer Est GFR (MDRD) Non-Af BUN/Creatinine Ratio Glucose Calcium POC Glucose 342 H 377 H 321 H 08/20/18 08/20/18 08/20/18 06:00 08:20 11:48 Sodium 136 Potassium 3.8 Chloride 98 Carbon Dioxide 30.0 Anion Gap 8 BUN 11 Creatinine 1.11 Estim Creat Clear Calc 97.10 Est GFR (MDRD) Af Amer 94 Est GFR (MDRD) Non-Af 78 BUN/Creatinine Ratio 9.9 L Glucose 353 H Calcium 8.4 L POC Glucose 443 H > 500 H* 08/20/18 08/20/18 16:58 17:34 Sodium Potassium Chloride Carbon Dioxide Anion Gap BUN Creatinine Estim Creat Clear Calc Est GFR (MDRD) Af Amer Est GFR (MDRD) Non-Af BUN/Creatinine Ratio Glucose Calcium POC Glucose 48 L 78 none Operations: None Procedures: None Summary of Care Provided: The patient is a 42 year old M with a PMH of ischemic CM with a EF of 15%, uncontrolled HTN, uncontrolled DM II, CAD, dyslipidemia, polysubstance abuse and non-compliance with diet, medications and follow up with his PCP who presented to the ED c/o SOB. He admitted to non-compliance with Lasix and insulin. CXR showed pulmonary edema and the BNP was elevated. He was admitted to a monitored bed on PCU and started on IV Lasix in addition to his regular home medications. This is his 6th admission to the hospital since May for CHF/non-compliance. He was very lethargic in the ED and I suspect his tox screen would have been positive had it been ordered. His significant other related to the nurses that he has been using. With good BP control and diuresis the CHF improved quickly. Once again he was counselled about the importance of a low salt diet, medication compliance, PCP and cardiology follow up and fluid restriction. He was discharged home on 08/20/18. On the day of DC there was a rather heated exchange between the patient and the significant other. Would like to obtain a urine drug screen when he comes back to the ED. He was scheduled for an appt with a new PCP by the DC party planner an the appt was for 08/21/18. Objective: see the PE in the PN for 08/20/18 - Physical Exam Vital Signs Temp Pulse Resp BP Pulse Ox 97.5 F L 78 16 115/81 H 97 08/20/18 15:00 08/20/18 15:00 08/20/18 15:00 08/20/18 15:00 08/20/18 15:00 Oxygen Flow Rate (L/min) 2 Oxygen Delivery Method Room Air Weight: 183 lb 3.266 oz Body Mass Index (BMI) 26.6 Finger Stick Blood Glucose 345 Intake and Output for Last 24 Hours 08/18/18 08/19/18 08/20/18 23:59 23:59 23:59 Intake Total 470 / 470 1050 / 1050 1170 / 1170 Output Total 2650 / 2650 4300 / 4300 2875 / 2875 Balance -2180 / -2180 -3250 / -3250 -1705 / -1705 Laboratory Tests Past 24 Hrs 08/20/18 06:00 Sodium 136 Potassium 3.8 Chloride 98 Carbon Dioxide 30.0 Anion Gap 8 BUN 11 Creatinine 1.11 Estim Creat Clear Calc 97.10 Est GFR (MDRD) Af Amer 94 Est GFR (MDRD) Non-Af 78 BUN/Creatinine Ratio 9.9 L Glucose 353 H Calcium 8.4 L POC Glucose 08/20/18 08/20/18 08/20/18 17:34 16:58 11:48 POC Glucose 78 48 L > 500 H* 08/20/18 08/20/18 08/20/18 08:20 04:28 00:01 POC Glucose 443 H 321 H 377 H 08/19/18 20:16 POC Glucose 342 H Discharge Activity: Return to Normal Activity Call your doctor if you observe: Fever of 101 or Higher, Numbness or Tingling, Shortness of breath, Fainting spells, Swelling in the ankles, Chest pain Home Medications: Medications to take at Discharge Insulin Aspart [Novolog Flexpen] units SC ACHS 07/06/18 Acetaminophen [Tylenol Tablet] 650 mg PO Q6H PRN PRN #120 tablet 08/07/18 Albuterol Aerosols [Ventolin Aerosols] 2.5 mg INHALATION Q2H PRN PRN #60 vial.neb. 08/07/18 Albuterol IH (ProAir) [Proair Hfa] 1 puff INHALATION Q6H PRN PRN #1 inhaler 08/07/18 Aspirin E.C. [Ecotrin] 81 mg PO TID #90 tablet 08/07/18 Atorvastatin Calcium 40 mg PO DAILY #30 tablet 08/07/18 Carvedilol 6.25 mg PO BID #60 tab 08/07/18 Clopidogrel Bisulfate [Plavix] 75 mg PO DAILY #30 tablet 08/07/18 Isosorbide Mononitrate [Isosorbide Mononitrate ER] 30 mg PO DAILY #30 tab.er.24h 08/07/18 Losartan Potassium [Cozaar] 25 mg PO DAILY #30 tab 08/07/18 Magnesium Oxide [Magox 400] 400 mg PO DAILY #30 tab 08/07/18 Nitroglycerin [Nitrostat] 0.4 mg SUBLINGUAL Q5M PRN #6 tab 08/07/18 Potassium Chloride [K-Tab ER] 20 meq PO DAILY #30 tablet.er 08/07/18 Spironolactone 25 mg PO DAILY #30 tab 08/07/18 hydrOXYzine pamoate capsule [Vistaril pamoate capsule] 50 mg PO TID PRN PRN #60 capsule 08/07/18 Senna [Senokot] 2 tablet PO QHS PRN PRN 08/18/18 Furosemide [Lasix] 80 mg PO BIDLX 08/19/18 Insulin Glargine [Lantus SoloStar Pen] 20 units SC BID 30 Days #4 pen 08/20/18 Following Prescrptions Were Given to Patient: Insulin Glargine [Lantus SoloStar Pen] 20 units SC BID 30 Days #4 pen Primary Care Physician: Tammie Nieves MD [STAFF PHYSICIAN] - Please follow up with your Primary Care Physician in: within the next week Disposition: Home Minutes spent on discharge:: 40 Patient Condition:: Stable Medical Necessity - Tobacco Use Smoking Status: Current every day smoker Tobacco Use: Cigarettes Meaningful Use Info Meaningful Use Diagnoses (Choose all that apply): CHF - CHF KENNETH/ARB ordered at discharge?: Yes Documented LVEF (%): 15 Code Visit Inpatient E&M: 53856 Disch Hosp
--- NOTE | 2018-08-21 13:18 | CASEMGMT ---
ILEANA CM DC PHONE CALL DC DATE: 08/21/18 DC Disposition: Home LACE/STRATA: 12/07 Attempted call to cell phone. Message that # not accepting calls at this time. Irving SERRANO RN ACM
== END 2018-08-20 18:44 | disposition home or self-care (01) | DRG 194 ==
LOC: ED 11:38 → PCU 13:22
PROVIDERS: Hospitalist; Admitting Provider Hospitalist; Emergency Provider Emergency Medicine; Family Provider Internal Medicine; PCP Internal Medicine; Visit Provider Internal Medicine
DX: I11.0 Hypertensive heart disease with heart failure (principal); I50.23 Acute on chronic systolic (congestive) heart failure; J96.01 Acute respiratory failure with hypoxia; I27.20 Pulmonary hypertension, unspecified; E11.65 Type 2 diabetes mellitus with hyperglycemia; I25.10 Atherosclerotic heart disease of native coronary artery without angina pectoris; I25.5 Ischemic cardiomyopathy; E78.5 Hyperlipidemia, unspecified; Z91.14 Patient's other noncompliance with medication regimen; Z79.4 Long term (current) use of insulin; Z79.82 Long term (current) use of aspirin; Z79.899 Other long term (current) drug therapy; F17.200 Nicotine dependence, unspecified, uncomplicated; Z95.5 Presence of coronary angioplasty implant and graft; Z91.11 Patient's noncompliance with dietary regimen; I51.3 Intracardiac thrombosis, not elsewhere classified; I25.2 Old myocardial infarction
CPT/HCPCS: 36415; 36600; 71045; 80048; 82803; 82947; 82962; 83880; 84484; 85025; 93005; 94640; 94667; 97161; 97165; 97802; 99285; A4216; J1940

== ENCOUNTER 2018-09-04 10:45 | Emergency (ER) | payer MEDICAID, SELFPAY ==
[2018-04-30 13:15] VITALS: BMI 25.9
[2018-08-18 13:52] VITALS: BMI 26.6
[2018-09-04 10:45] VITALS: BP 128/76; PULSE 109; RESP 18; TEMP 36.6; O2SAT 96; BMI 26.6
--- NOTE | 2018-09-04 11:02 | ED.VIS.GEN ---
History of Present Illness Chief Complaint: Laceration Informant: Patient Onset: Today Context: Sudden Onset Timing: Continuous Quality: Pain Location: Tip left index finger Current Severity: Mild Maximum Severity: Severe Worsened by: Touch Relieved by: Nothing Associated Symptoms: No associated symptoms Narrative: Patient is a 42-year-old male who was using a blower. He states he wiped the area. He sustained a piece of glass tip of his left index finger. He is diabetic and has history of cardiac disease. He complains of pain. He attempted to remove the glass but was unsuccessful. He denies paresthesia, anesthesia motors. Tetanus between 5 and 10 years. Prior similar symptoms: No Recent Illness/Hospitalization: Yes - Past Medical History (1) CAD (coronary artery disease) Status: Chronic (2) Chronic systolic CHF (congestive heart failure) Status: Chronic (3) Hyperlipidemia Status: Chronic (4) Hypertension Status: Chronic (5) Ischemic cardiomyopathy Status: Chronic Comment: EF 20% per echo 08/08/2016 (6) Nicotine dependence Status: Chronic (7) Polysubstance abuse Status: Chronic Comment: marijuana, cocaine (8) Type 2 diabetes mellitus Status: Chronic Past Medical History - Allergies and Home Meds Allergies/Adverse Reactions: Allergies No Known Allergies Allergy (Verified 09/04/18 10:47) Primary Care Physician: Jesus Sarah [NON-STAFF] - Surgical History: - - Cardiac stent August 2014 Lives: Alone Smoking Status: Current every day smoker Drugs: - - Medical records history of polysubstance abuse - Family History Paternal Family History: Family History (Last Reviewed 08/06/18 @ 08:21 by Benjamin Cerna MD) Mother CAD (coronary artery disease) Diabetes Hypertension Myocardial infarction Father CAD (coronary artery disease) Diabetes Hypertension Myocardial infarction Brother Hypertension Family History: Reports: Diabetes, High Cholesterol, Heart Disease, Hypertension Maternal Family History: Family History (Last Reviewed 08/06/18 @ 08:21 by Benjamin Cerna MD) Mother CAD (coronary artery disease) Diabetes Hypertension Myocardial infarction Father CAD (coronary artery disease) Diabetes Hypertension Myocardial infarction Brother Hypertension Family History: Reports: Diabetes, High Cholesterol, Heart Disease, Hypertension Review of Systems General: Denies: Chills, Fever Musculoskeletal: Reports: Extremity Pain - Left index finger secondary to retained glass. Denies: Myalgias, Arthralgias, Neck pain, Back pain, Swelling Skin: Reports: Abrasions, Wounds. Denies: Rash, Abscess Neurological: Denies: Weakness, Parasthesia, Numbness Hematologic: Denies: Easy bruising, Easy bleeding Allergy: Denies: Uticaria, Swelling of the mouth Physical Exam Vital Signs/Narrative: Vital Signs Temp Pulse Resp BP Pulse Ox 09/04/18 10:45 98 F 109 H 18 128/76 H 96 Inital Vital Signs reviewed: Yes General: Well nourished, Well developed, No Acute Distress Head: Normocephalic, Atraumatic Eyes: Perrl, EOMI. Negative for: Pale conjunctiva, Scleral icterus Cardiovascular: Regular rate, Regular rhythm, No murmurs Respiratory: No distress Extremities: No edema, - - Retained foreign glass noted tip of index finger.. Negative for: Nontender Skin: Normal color, No rash, Trauma. Negative for: Cyanosis, Jaundice Neurological: Alert, Oriented x3, Cranial nerves II-XII grossly intact, Normal Strength, Normal Sensation Psychological: Normal affect, Normal Mood Diagnostic/Tx/Re-eval Chest X-Ray - ED: Read by ED Physician Three-view x-ray of the index finger was obtained and there is no evidence of retained glass foreign body. Will have wound dressed and patient discharged home - Medical Decision Making Patient with glass noted tip of index finger. Will anesthetize digit. After finger has been successfully anesthetized will remove piece of glass. Since there is no retained glass will discharge to home Procedures Procedure(s): Digital block. Digit was cleaned. Glass foreign body was removed. Will obtain x-ray to confirm no retained glass fragments ED Disposition - Plan for ED Patient: Disposition: Home or Assisted Living Diagnosis: Foreign body granuloma of soft tissue of left hand Instructions: ED Foreign Body Soft Tissue Removed Referrals: Jesus Sarah [NON-STAFF] - As Needed
--- NOTE | 2018-09-04 11:47 | RAD_ITS ---
STUDY: X-RAY - LEFT HAND, ATTENTION INDEX FINGER. REASON FOR EXAM: Male, 42 years old. Injury to the tip of the index finger. TECHNIQUE: view(s) of the finger were obtained. COMPARISON: None. FINDINGS: Normal metacarpal head. Normal metacarpophalangeal joint. Normal proximal phalanx. Normal middle phalanx. Normal distal phalanx. Normal proximal interphalangeal joint. Normal distal interphalangeal joint. Soft tissue injury. No radiopaque foreign body is seen. RAD/Finger(s) Min 2 Views IMPRESSION: Soft tissue injury. No radiopaque foreign body is seen. Electronically Signed: Nishant Masterson, at 12:29 EDT , Service support ,
== END 2018-09-04 12:47 | disposition home or self-care (01) ==
PROVIDERS: Emergency Provider Emergency Medicine
DX: M60.242 Foreign body granuloma of soft tissue, not elsewhere classified, left hand (principal); Z18.81 Retained glass fragments; I25.10 Atherosclerotic heart disease of native coronary artery without angina pectoris; I11.0 Hypertensive heart disease with heart failure; I50.22 Chronic systolic (congestive) heart failure; E11.9 Type 2 diabetes mellitus without complications; E78.5 Hyperlipidemia, unspecified; I25.5 Ischemic cardiomyopathy; F17.200 Nicotine dependence, unspecified, uncomplicated; Z79.4 Long term (current) use of insulin; Z79.82 Long term (current) use of aspirin; Z79.02 Long term (current) use of antithrombotics/antiplatelets; Z79.899 Other long term (current) drug therapy
CPT/HCPCS: 73140; 99283

== ENCOUNTER 2018-09-06 10:01 | Emergency (ER) | payer MEDICAID, SELFPAY ==
[2018-04-30 13:15] VITALS: BMI 25.9
[2018-09-06 10:03] VITALS: BP 112/76; PULSE 95; RESP 14; TEMP 36.6; O2SAT 100; BMI 26.3
--- NOTE | 2018-09-06 10:38 | ED.VISSUMM ---
- ER Visit Summary Date of Service: 09/06/18 Chief Complaint: Cough and foreign body to left index finger History of Present Illness: The patient is a 43 M presents with glass foreign body to his left index finger. Patient states she was seen here earlier this week for similar complaint. Patient states he feels like there is still glass in his finger. Patient admits to some tingling in his finger. Patient denies any weakness. Patient also complains of a cough, sore throat, and subjective fevers. Patient states he has pain in his back from coughing. Patient admits to some nausea and vomiting. Patient states he was unable to sleep last night due to the coughing. Physical Examination: Vital signs are stable. Patient is afebrile. Patient is in no acute distress. Oral mucosa is pink and moist. Neck is supple. Trachea is midline. Heart was regular rate and rhythm. Lungs showed few expiratory wheezes in the bases bilaterally. Abdomen is soft and nontender. There is an open wound to the tip of the left index finger. I do not see any foreign bodies. There is full range of motion. Cranial nerves II through XII are intact. There are no focal motor or sensory deficits noted. Test Results: CBC was normal. Basic metabolic profile showed a glucose of 599, sodium of 131, chloride of 97. Urinalysis showed glucose of 1000 but was otherwise normal. Serum ketones were negative. Chest x-ray shows bibasilar atelectasis but no acute process. Emergency Department Course and Treatment: The left index finger was cleaned and anesthetized with 1% lidocaine via digital block. The wound was explored. I did not see or palpate any foreign bodies. The wound was left open. Bacitracin dressing was applied. Repeat fingerstick blood sugar was obtained and was 386. Patient felt better. Patient was discharged home. Patient was instructed to continue to monitor his blood sugars. Patient was instructed to follow-up with his primary care physician in 3 to 5 days for reevaluation. Patient understood and was agreeable with the plan. All questions were answered. Disposition: Discharge home Impression: 1. Hyperglycemia 2. Upper respiratory infection This note was generated with [employer] software. It may contain incorrect words, spelling, and punctuation that were not noted in review of the chart prior to signing ED Disposition - Plan for ED Patient: Disposition: Home or Assisted Living Diagnosis: Hyperglycemia due to type 2 diabetes mellitus, Viral upper respiratory tract infection with cough Instructions: ED Hyperglycemia Diabetic, ED URI Viral Referrals: Care Physician,No Primary [Primary Care Provider] - Orville Littlejohn DO [STAFF PHYSICIAN] - 3-5 Days
[2018-09-06 10:44] VITALS: PULSE 98; RESP 32
[2018-09-06] MEDS: Ipratropium/Albuterol Sulfate 3 ML AMPUL.NEB INHALATION (10:44)
--- NOTE | 2018-09-06 11:05 | RAD_ITS ---
STUDY: X-RAY CHEST REASON FOR EXAM: Male, 43 years old. Shortness of breath/dyspnea. TECHNIQUE: AP and lateral views of the chest. COMPARISON: Comparison is made with prior examination dated August 18, 2018. FINDINGS: Stable mild increased markings at the lung bases suggestive of bibasilar atelectasis. There is no demonstrated pleural abnormality. A pacemaker device is seen with the distal electrode in the region of the superior vena cava. Normal mediastinum and kelly. Normal visualized pulmonary arteries. Normal visualized aortic arch and descending thoracic aorta. Normal visualized thoracic spine. Normal visualized ribs, clavicles, and shoulders. There is no demonstrated abnormality of the visualized soft tissue structures of the upper abdomen. RAD/Chest PA and Lateral IMPRESSION: Stable mild increased markings at the lung bases suggestive of bibasilar atelectasis. Electronically Signed: Nishant Masterson, at 11:29 EDT , Service support ,
--- NOTE | 2018-09-06 11:26 | ED.RN ---
PATIENT BACK FROM RADIOLOGY, PER MANAGER ORDER, PATIENT WAS LETHARGIC, UNABLE TO KEEP EYES OPEN OR FOLLOWING DIRECTIONS. THIS RN TO BEDSIDE TO ASSESS PATIENT, PATIENT AROUSES TO PAIN, OPENS EYES. BLOOD SUGAR TAKEN, HI, DR. GU MADE AWARE.
[2018-09-06 11:30] LABS: Bedside Glucose > 500 mg/dL (70-110)
[2018-09-06 11:55] LABS: Allen Test POS; Base Excess 1 mmol/L (-2 to +2); Bicarbonate 26.6 mmol/L (22-26); Blood Gas Specimen Type ART; O2 Delivery Device Room Air; PO2 78 mmHG (75-100); SITE L Radial; SO2 95 % (95-99); Time Given 1151; Total Carbon Dioxide 28 mmol/L; pCO2 45.8 mmHg (35-45); pH 7.37 (7.35-7.45)
[2018-09-06] MEDS: 0.9% Normal Saline 1,000 ML 1000 ML IV (11:55)
[2018-09-06 12:00] LABS: Absolute Lymphocyte Count 1.38 X10^3/ul (0.83-4.51); Basophil# 0.02 X10^3/uL; Basophil% 0.4 % (0-1); Eosinophil# 0.14 X10^3/uL; Eosinophils% 2.7 % (0-5); Hemoglobin 13.2 g/dl (13.0-16.5); Lymphocyte # 1.38 X10^3/ul (4.0); Lymphocyte % 26.4 % (19-41); Mean Corp Hgb Conc 33.8 g/gl (32-36); Mean Corpuscular Hgb 29.1 pg (27.0-32.0); Mean Corpuscular Volume 86.1 fL (80-94); Mean Platelet Vol. 9.8 fl (6.2-12.0); Monocyte# 0.64 X10^3/uL; Monocyte% 12.2 % (0-10); Neutrophil # 3.04 X10^3/uL (2.7-7.7); Neutrophil % 58.1 % (47-70); Platelet Count 161 K/mm3 (150-450); RBC Distribution Width CV 13.2 % (11.6-14.6); RBC Distribution Width SD 41.8 fl (35.1-43.9); Red Blood Count 4.53 M/mm3 (4.6-6.2); White Blood Count 5.2 K/mm3 (4.4-11.0)
[2018-09-06 12:01] LABS: POSITIVE COUNT NO; POSITIVE DIFFERENTIAL NO; POSITIVE MORPHOLOGY NO
[2018-09-06 12:05] LABS: Bacteria 0 SEEN /hpf (None Seen); Mucous, Urine 0 SEEN /hpf (<or=2+); Red Blood Cells-Urine 0 SEEN /hpf (0-5); Squamous Epithelial Cells - UA 0 SEEN /hpf (0-5); White Blood Cells 0 SEEN /hpf (0-5)
[2018-09-06 12:15] LABS: Color, Urine Yellow (Yellow); Glucose, Dipstick 1000 mg/dl (Normal); Ketone-Dipstick Negative (Negative); Leukocyte Esterase-Dipstick Negative /ul (Negative); Nitrite-Dipstick Negative (Negative); Occult Blood-Urine Negative /ul (Negative); Protein-Dipstick Negative (Negative); Urine Bilirubin Dipstick Negative (Negative); Urine Clarity Clear (Clear); Urine Urobilinogen Normal (Normal); Urine pH 6.5 (5.0 - 8.0)
--- NOTE | 2018-09-06 12:17 | ED.RN ---
LAB RESULTED GLUCOSE IS 599, PHYSICIAN AWARE
[2018-09-06 12:18] LABS: Anion Gap 5 (5-15); BUN 15 mg/dL (7-18); BUN/Creat Ratio 12.4 RATIO (10-20); Calcium,Total 8.1 mg/dL (8.5-10.1); Chloride 97 mmol/L (98-107); Creatinine, Serum 1.21 mg/dL (0.70-1.30); EST Glomerular Filtration Rate 70 mL/min (>60); Est Glom Filt Rate - Afr Amer 85 mL/min (>60); Estimated Creatinine Clearance 88.18 ml/min; Glucose 599 mg/dL (74-106); Potassium 4.1 mmol/L (3.5-5.1); Sodium Level 131 mmol/L (136-145)
[2018-09-06 13:34] VITALS: BP 122/94; PULSE 101; O2SAT 97
[2018-09-06] MEDS: Insulin Lispro 100 UNIT/ML INSULN.PEN 15 UNIT SC (13:52)
[2018-09-06 14:45] LABS: Bedside Glucose 386 mg/dL (70-110)
[2018-09-06 15:01] VITALS: BP 133/78; PULSE 59; RESP 16; O2SAT 96
[2018-09-06] MEDS: BACITRACIN 15 GM Tube 1 APPLIC TOPICAL (15:03)
== END 2018-09-06 15:04 | disposition home or self-care (01) ==
PROVIDERS: Emergency Provider Emergency Medicine
DX: J06.9 Acute upper respiratory infection, unspecified (principal); R73.9 Hyperglycemia, unspecified; S60.451A Superficial foreign body of left index finger, initial encounter; J98.11 Atelectasis; R20.2 Paresthesia of skin; M54.9 Dorsalgia, unspecified; W25.XXXA Contact with sharp glass, initial encounter; Y93.9 Activity, unspecified; Y92.9 Unspecified place or not applicable
CPT/HCPCS: 36600; 71046; 80048; 81001; 82009; 82803; 82962; 85025; 94640; 96360; 96361; 96372; 99285; J7030

== ENCOUNTER 2018-09-06 23:31 | Emergency (ER) | payer MEDICAID, SELFPAY ==
[2018-04-30 13:15] VITALS: BMI 25.9
[2018-09-06 10:03] VITALS: BMI 26.3
[2018-09-06 23:32] VITALS: BP 111/80; PULSE 117; RESP 20; TEMP 37.7; O2SAT 98; BMI 27.3
[2018-09-06 23:44] VITALS: O2SAT 96
--- NOTE | 2018-09-06 23:56 | ED.VIS.GEN ---
History of Present Illness Chief Complaint: Shortness of Breath Informant: Patient Narrative: Stated that this morning he started to develop cough with clearish yellow sputum. He has been feeling short of breath due to his cough. He thinks he has a respiratory infection. He was seen in the emergency department earlier for a finger laceration. He had that repaired. He also had lab work and a chest x-ray. Chest x-ray showed atelectasis and no acute infiltrates at that time. There was no white count on his CBC. The patient stated that he comes in for persistent symptoms. He does not feel like he is wheezing. No home treatment. Current severity is mild. He does have a history of CHF but does not feel that that is the cause of his symptoms due to his cough and sputum. - Past Medical History (1) Noncompliance Status: Chronic (2) Left ventricular thrombus Status: Chronic (3) Acute exacerbation of CHF (congestive heart failure) Status: Acute (4) CAD (coronary artery disease) Status: Chronic (5) Severe left ventricular systolic dysfunction Status: Chronic (6) Polysubstance abuse Status: Chronic Comment: marijuana, cocaine (7) Presence of automatic implantable cardioverter-defibrillator Status: Chronic Comment: SICD per Dr [facility] (8) Nicotine dependence Status: Chronic (9) Old myocardial infarction Status: Chronic (10) Hypertension Status: Chronic (11) History of coronary artery stent placement Status: Chronic Comment: PCI-MEHRDAD-LAD 08/2014, [id number]-Mid CX and Prox-Mid RCA 03/18/15, Thrombosis of CX stent 03/25/15. MEHRDAD to RCA (2.7 X 16 Promus Synergy) 04/30/2018 (12) Atherosclerosis of coronary artery of [place] heart without angina pectoris Status: Chronic Comment: PCI-MEHRDAD-LAD 08/2014, [id number]-Mid CX and Prox-Mid RCA 03/18/15, Thrombosis of CX stent 03/25/15 (13) Ischemic cardiomyopathy Status: Chronic Comment: EF 20% per echo 08/08/2016 (14) Hyperlipidemia Status: Chronic (15) Type 2 diabetes mellitus Status: Chronic (16) Chronic systolic CHF (congestive heart failure) Status: Chronic Past Medical History - Allergies and Home Meds Allergies/Adverse Reactions: Allergies No Known Allergies Allergy (Verified 09/06/18 10:03) Primary Care Physician: Boaz De Jesus MD [STAFF PHYSICIAN] - Prior records reviewed: Yes Surgical History: - - Cardiac stent August 2014 Smoking Status: Current every day smoker Alcohol: None Drugs: None - Family History Paternal Family History: Family History (Last Reviewed 08/06/18 @ 08:21 by Benjamin Cerna MD) Mother CAD (coronary artery disease) Diabetes Hypertension Myocardial infarction Father CAD (coronary artery disease) Diabetes Hypertension Myocardial infarction Brother Hypertension Family History: Reports: Diabetes, High Cholesterol, Heart Disease, Hypertension Maternal Family History: Family History (Last Reviewed 08/06/18 @ 08:21 by Benjamin Cerna MD) Mother CAD (coronary artery disease) Diabetes Hypertension Myocardial infarction Father CAD (coronary artery disease) Diabetes Hypertension Myocardial infarction Brother Hypertension Family History: Reports: Diabetes, High Cholesterol, Heart Disease, Hypertension Review of Systems General: Denies: Chills, Fever, Sweats Eyes: Denies: Visual changes - bilaterally, Diplopia ENT: Denies: Rhinorrhea, Sore throat Cardiovascular: Denies: Chest pain, Palpitations Respiratory: Reports: Dyspnea, Cough. Denies: Dyspnea on exertion Gastrointestinal: Denies: Abdominal pain, Nausea, Vomiting, Diarrhea, Melena, Hematochezia Genitourinary: Denies: Dysuria, Hematuria, Frequency Musculoskeletal: Denies: Back pain, Extremity Pain Skin: Denies: Rash, Wounds Neurological: Denies: Headache, Weakness, Numbness Physical Exam Vital Signs/Narrative: Vital Signs Temp Pulse Resp BP Pulse Ox 09/06/18 23:32 99.9 F H 117 H 20 H 111/80 98 General: Well nourished, Well developed, No Acute Distress Head: Normocephalic, Atraumatic Eyes: Perrl, EOMI ENT: Moist mucous membranes, No rhinorrhea Neck: Supple, Nontender Cardiovascular: Regular rhythm, No murmurs, Tachycardia Respiratory: No distress, CTA bilaterally, Chest nontender Abdomen: Soft, Nontender, Nondistended, Normal bowel sounds Back: Nontender, Normal Inspection Extremities: Nontender, No edema Skin: Normal color, No rash Neurological: Alert, Oriented x3, Cranial nerves II-XII grossly intact, Normal Strength, Normal Sensation Psychological: Normal affect, Normal Mood Diagnostic/Tx/Re-eval - Medical Decision Making Patient has a borderline fever at 99.9. Given Tylenol. At this time I feel he would benefit from a dose of antibiotics. He just had a negative chest x-ray and lab work yesterday. I do not feel he needs repeat lab work or imaging. I feel treating with antibiotics may help him if he has an early pneumonia. ED Disposition - Plan for ED Patient: Disposition: Home or Assisted Living Diagnosis: Acute bronchitis Instructions: What Is Acute Bronchitis? Prescriptions: Azithromycin 250 mg PO DAILY #4 tab Referrals: Boaz De Jesus MD [STAFF PHYSICIAN] -
--- NOTE | 2018-09-06 23:59 | ED.DCSUM_ITS ---
History of Present Illness Chief Complaint: Shortness of Breath Informant: Patient Narrative: Stated that this morning he started to develop cough with clearish yellow sputum. He has been feeling short of breath due to his cough. He thinks he has a respiratory infection. He was seen in the emergency department earlier for a finger laceration. He had that repaired. He also had lab work and a chest x- ray. Chest x-ray showed atelectasis and no acute infiltrates at that time. There was no white count on his CBC. The patient stated that he comes in for persistent symptoms. He does not feel like he is wheezing. No home treatment. Current severity is mild. He does have a history of CHF but does not feel that that is the cause of his symptoms due to his cough and sputum. - Past Medical History (1) Noncompliance Status: Chronic (2) Left ventricular thrombus Status: Chronic (3) Acute exacerbation of CHF (congestive heart failure) Status: Acute (4) CAD (coronary artery disease) Status: Chronic (5) Severe left ventricular systolic dysfunction Status: Chronic (6) Polysubstance abuse Status: Chronic Comment: marijuana, cocaine (7) Presence of automatic implantable cardioverter-defibrillator Status: Chronic Comment: SICD [facility] (8) Nicotine dependence Status: Chronic (9) Old myocardial infarction Status: Chronic (10) Hypertension Status: Chronic (11) History of coronary artery stent placement Status: Chronic Comment: PCI-MEHRDAD-LAD 08/2014, [id number]-Mid CX and Prox- Mid RCA 03/18/15, Thrombosis of CX stent 03/25/15. MEHRDAD to RCA (2.7 X 16 Promus Synergy) 04/30/2018 (12) Atherosclerosis of coronary artery of [place] heart without angina pectoris Status: Chronic Comment: PCI-MEHRDAD-LAD 08/2014, [id number]-Mid CX and Prox- Mid RCA 03/18/15, Thrombosis of CX stent 03/25/15 (13) Ischemic cardiomyopathy Status: Chronic Comment: EF 20% per echo 08/08/2016 (14) Hyperlipidemia Status: Chronic (15) Type 2 diabetes mellitus Status: Chronic (16) Chronic systolic CHF (congestive heart failure) Status: Chronic Past Medical History - Allergies and Home Meds Allergies/Adverse Reactions: Allergies No Known Allergies Allergy (Verified 09/06/18 10:03) Primary Care Physician: Boaz De Jesus MD [STAFF PHYSICIAN] - Prior records reviewed: Yes Surgical History: - - Cardiac stent August 2014 Smoking Status: Current every day smoker Alcohol: None Drugs: None - Family History Paternal Family History: Family History (Last Reviewed 08/06/18 @ 08:21 by Benjamin Cerna MD) Mother CAD (coronary artery disease) Diabetes Hypertension Myocardial infarction Father CAD (coronary artery disease) Diabetes Hypertension Myocardial infarction Brother Hypertension Family History: Reports: Diabetes, High Cholesterol, Heart Disease, Hypertension Maternal Family History: Family History (Last Reviewed 08/06/18 @ 08:21 by Benjamin Cerna MD) Mother CAD (coronary artery disease) Diabetes Hypertension Myocardial infarction Father CAD (coronary artery disease) Diabetes Hypertension Myocardial infarction Brother Hypertension Family History: Reports: Diabetes, High Cholesterol, Heart Disease, Hypertension Review of Systems General: Denies: Chills, Fever, Sweats Eyes: Denies: Visual changes - bilaterally, Diplopia ENT: Denies: Rhinorrhea, Sore throat Cardiovascular: Denies: Chest pain, Palpitations Respiratory: Reports: Dyspnea, Cough. Denies: Dyspnea on exertion Gastrointestinal: Denies: Abdominal pain, Nausea, Vomiting, Diarrhea, Melena, Hematochezia Genitourinary: Denies: Dysuria, Hematuria, Frequency Musculoskeletal: Denies: Back pain, Extremity Pain Skin: Denies: Rash, Wounds Neurological: Denies: Headache, Weakness, Numbness Physical Exam Vital Signs/Narrative: Vital Signs Temp Pulse Resp BP Pulse Ox 09/06/18 23:32 99.9 F H 117 H 20 H 111/80 98 General: Well nourished, Well developed, No Acute Distress Head: Normocephalic, Atraumatic Eyes: Perrl, EOMI ENT: Moist mucous membranes, No rhinorrhea Neck: Supple, Nontender Cardiovascular: Regular rhythm, No murmurs, Tachycardia Respiratory: No distress, CTA bilaterally, Chest nontender Abdomen: Soft, Nontender, Nondistended, Normal bowel sounds Back: Nontender, Normal Inspection Extremities: Nontender, No edema Skin: Normal color, No rash Neurological: Alert, Oriented x3, Cranial nerves II-XII grossly intact, Normal Strength, Normal Sensation Psychological: Normal affect, Normal Mood Diagnostic/Tx/Re-eval - Medical Decision Making Patient has a borderline fever at 99.9. Given Tylenol. At this time I feel he would benefit from a dose of antibiotics. He just had a negative chest x-ray and lab work yesterday. I do not feel he needs repeat lab work or imaging. I feel treating with antibiotics may help him if he has an early pneumonia. ED Disposition - Plan for ED Patient: Disposition: Home or Assisted Living Diagnosis: Acute bronchitis Instructions: What Is Acute Bronchitis? Prescriptions: Azithromycin 250 mg PO DAILY #4 tab Referrals: Boaz De Jesus MD [STAFF PHYSICIAN] -
[2018-09-07] MEDS: Azithromycin 250 MG Tablet 500 MG PO (00:30)
[2018-09-07] MEDS: Acetaminophen 500 MG Tablet 1000 MG PO (00:30)
[2018-09-07 01:14] VITALS: BP 118/74; PULSE 95; RESP 18; O2SAT 98
== END 2018-09-07 01:22 | disposition home or self-care (01) ==
PROVIDERS: Emergency Provider Emergency Medicine
DX: J20.9 Acute bronchitis, unspecified (principal); I11.0 Hypertensive heart disease with heart failure; I50.22 Chronic systolic (congestive) heart failure; I25.2 Old myocardial infarction; I25.10 Atherosclerotic heart disease of native coronary artery without angina pectoris; I25.5 Ischemic cardiomyopathy; E11.9 Type 2 diabetes mellitus without complications; E78.5 Hyperlipidemia, unspecified; F14.10 Cocaine abuse, uncomplicated; F12.10 Cannabis abuse, uncomplicated; F17.200 Nicotine dependence, unspecified, uncomplicated; Z95.5 Presence of coronary angioplasty implant and graft; Z95.810 Presence of automatic (implantable) cardiac defibrillator; Z79.82 Long term (current) use of aspirin; Z79.4 Long term (current) use of insulin; Z79.01 Long term (current) use of anticoagulants; Z79.899 Other long term (current) drug therapy
CPT/HCPCS: 99283

== ENCOUNTER 2018-09-18 09:24 | Observation (INO) | payer MEDICAID, SELFPAY ==
[2018-04-30 13:15] VITALS: BMI 25.9
[2018-09-18] VITALS (10 sets, daily range): BP systolic 93–103; BP diastolic 58–79; PULSE 78–88; RESP 13–20; TEMP 36.4–36.6; O2SAT 95–99; BMI 25.2; BMI 25.6
--- NOTE | 2018-09-18 09:53 | RAD_ITS ---
STUDY: X-RAY CHEST REASON FOR EXAM: Male, 43 years old. Cough. TECHNIQUE: PA and lateral views of the chest. COMPARISON: Comparison is made with prior examination dated September 06, 2018. FINDINGS: EKG electrodes are seen. Focal infiltrate in the posterior medial segment of the left lower lobe. Hyperinflation. Blunting of the left costophrenic angle posteriorly. Stable appearance of the pacer device. Borderline cardiomegaly. Normal mediastinum and kelly. Normal visualized pulmonary arteries. Normal visualized aortic arch and descending thoracic aorta. Normal visualized thoracic spine. Normal visualized ribs, clavicles, and shoulders. There is no demonstrated abnormality of the visualized soft tissue structures of the upper abdomen. RAD/Chest PA and Lateral IMPRESSION: Focal infiltrate in the posterior medial segment of the left lower lobe. Electronically Signed: Nishant Masterson, at 10:18 EDT , Service support ,
--- NOTE | 2018-09-18 09:53 | EKG12_ITS ---
Test Reason : CP Blood Pressure : / mmHG Vent. Rate : 086 BPM Atrial Rate : 086 BPM P-R Int : 172 ms QRS Dur : 092 ms QT Int : 402 ms P-R-T Axes : 063 -70 091 degrees QTc Int : 481 ms Normal sinus rhythm Possible Left atrial enlargement Left anterior fascicular block Anteroseptal infarct (cited on or before 05-DEC-2014), age undetermined Abnormal ECG Confirmed by KATRINA MCKEON, SAMANTHA ([id number]), photo editor PANCHITO SUTTON ([id number]) on 09/20/2018 1:27:22 PM Referred By: NACHO
--- NOTE | 2018-09-18 09:54 | ED.DCSUM_ITS ---
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 He has a history of coronary artery disease with multiple stents and an ischemic cardiomyopathy with an eject ion fraction of 15%. Also has a history of polysubstance abuse and noncompliance. Patient reports he has chest pain began approximately 1 to 2 hours ago while he was walking to the bathroom. Is a dull, aching pain Zeta 10 severity. Is worsened by standing up and relieved by nothing. Reports is been nausea and had dry heaves. He is also been diaphoretic with this. He denies any shortness of breath. On review of systems patient reports that he has had a cough for the past week that is productive yellow sputum without blood. He has had subjective fever and chills for the past 3 to 4 days. Physical Examination: Vitals: Stable. Afebrile. General: Well-nourished and well-developed. Head: Normocephalic atraumatic. Neck: Supple, no lymphadenopathy. No JVD. Nontender. Cardiovascular: Regular rate and rhythm. No murmurs. Respiratory: No respiratory distress. Clear to auscultation bilaterally. Abdominal: Soft, nontender, nondistended, normal bowel sounds. No guarding, rebound, or peritoneal signs. Back: Nontender. Extremities: Nontender, 1+ edema of his lower extremities bilaterally. Skin: Normal color, no rash. Neurologic: Alert and oriented ?3. Cranial nerves II through XII are intact. Normal strength and sensation. Psych: Normal affect. Test Results: EKG is sinus at 86 with a left anterior fascicular block and nonspecific ST changes. There are also T wave inversions in leads I, aVL, V5, and V6. This is unchanged from last month. Repeat EKG is unchanged. Initial troponin is less than 0.015. 3-hour troponin is 0.022. LFTs are marked for an albumin 2.5 and total bilirubin of 1.1. Lipase is normal. Chem-7 shows a glucose of 354 calcium 8.2. CBC shows segmented neutrophils of 72. Chest x-ray shows retrocardiac infiltrate. Emergency Department Course and Treatment: Patient was treated with aspirin p.o. and doxycycline p.o. He was given a dose of Zofran IV and Tylenol p.o. He is resting comfortably. Treatment Plan: The patient was discussed with Dr. Ramirez initially. The repeat troponin came back and is increased and the patient was discussed with Dr. Schreiber. The patient will be admitted to the hospital for further evaluation and treatment. Disposition: Admitted in improved condition. Impression: 1. Chest pain. 2. Polysubstance abuse. 3. Indeterminate troponin. 4. Pneumonia, retrocardiac. 5. Medication noncompliance. 6. SHARA score 5. This note was generated with [employer] software. It may contain incorrect words, spelling, and punctuation that were not noted in review of the chart prior to signing ED Disposition - Plan for ED Patient: Referrals: Care Physician,No Primary [Primary Care Provider] -
[2018-09-18] MEDS: Acetaminophen 500 MG Tablet 1000 MG PO (10:10)
[2018-09-18] MEDS: Ondansetron 4 MG/2 ML Vial IV (10:11)
[2018-09-18 10:16] LABS: Absolute Lymphocyte Count 1.75 X10^3/ul (0.83-4.51); Absolute Neutrophil Count 6.5 X10^3/uL (2.0-7.7); Basophil# 0.01 X10^3/uL; Basophil% 0.1 % (0-1); Eosinophil# 0.07 X10^3/uL; Eosinophils% 0.8 % (0-5); Hematocrit 43.9 % (40-54); Hemoglobin 15.1 g/dl (13.0-16.5); Lymphocyte # 1.75 X10^3/ul (4.0); Lymphocyte % 19.3 % (19-41); Mean Corp Hgb Conc 34.4 g/gl (32-36); Mean Corpuscular Hgb 28.9 pg (27.0-32.0); Mean Corpuscular Volume 84.1 fL (80-94); Mean Platelet Vol. 10.1 fl (6.2-12.0); Monocyte# 0.73 X10^3/uL; Neutrophil # 6.51 X10^3/uL (2.7-7.7); Neutrophil % 71.7 % (47-70); POSITIVE COUNT NO; POSITIVE DIFFERENTIAL NO; POSITIVE MORPHOLOGY NO; Platelet Count 305 K/mm3 (150-450); RBC Distribution Width CV 13.3 % (11.6-14.6); Red Blood Count 5.22 M/mm3 (4.6-6.2); White Blood Count 9.1 K/mm3 (4.4-11.0)
[2018-09-18 10:32] LABS: ALB/GLOB Ratio 0.6 RATIO (0.9-2.4); AST(SGOT) 24 U/L (15-37); Alanine Aminotransfer ALT/SGPT 23 U/L (16-61); Albumin, Serum 2.5 g/dL (3.2-5.0); Alkaline Phosphatase 82 U/L (45-117); Anion Gap 9 (5-15); BUN 9 mg/dL (7-18); BUN/Creat Ratio 9.1 RATIO (10-20); Calcium,Total 8.2 mg/dL (8.5-10.1); Chloride 99 mmol/L (98-107); Creatinine, Serum 0.99 mg/dL (0.70-1.30); EST Glomerular Filtration Rate 88 mL/min (>60); Est Glom Filt Rate - Afr Amer 107 mL/min (>60); Estimated Creatinine Clearance 107.78 ml/min; Globulin 3.9 g/dL (2.2-4.2); Glucose 354 mg/dL (74-106); Lipase 104 U/L (73-393); Potassium 4.5 mmol/L (3.5-5.1); Protein, Total 6.4 g/dL (6.4-8.2); Sodium Level 136 mmol/L (136-145)
[2018-09-18] MEDS: Aspirin 81 MG TAB.CHEW 324 MG PO (10:49)
[2018-09-18] MEDS: Doxycycline 100 MG CAPSULE PO (10:49)
--- NOTE | 2018-09-18 10:52 | EKG12_ITS ---
Test Reason : REPEAT EKG Blood Pressure : / mmHG Vent. Rate : 080 BPM Atrial Rate : 080 BPM P-R Int : 176 ms QRS Dur : 100 ms QT Int : 380 ms P-R-T Axes : 061 -74 092 degrees QTc Int : 438 ms Normal sinus rhythm Possible Left atrial enlargement Left anterior fascicular block Anteroseptal infarct , age undetermined Abnormal ECG Confirmed by KATRINA MCKEON, SAMANTHA ([id number]), greeting card editor PANCHITO SUTTON ([id number]) on 09/20/2018 1:27:41 PM Referred By: EMILY Confirmed By:SAMANTHA HERNDON MD
--- NOTE | 2018-09-18 13:48 | HP.PCM_ITS ---
Problem List (1) Noncompliance Status: Chronic (2) Left ventricular thrombus Status: Chronic (3) Acute exacerbation of CHF (congestive heart failure) Status: Chronic Qualifiers: (4) CAD (coronary artery disease) Status: Chronic Qualifiers: (5) Severe left ventricular systolic dysfunction Status: Chronic (6) Polysubstance abuse Status: Chronic Comment: marijuana, cocaine (7) Presence of automatic implantable cardioverter-defibrillator Status: Chronic Comment: SICD per Dr Berry @ [facility] (8) Nicotine dependence Status: Chronic Qualifiers: Nicotine product type: cigarettes Substance use status: unspecified nicotine-induced disorder Qualified Code(s): F17.219 - Nicotine dependence, cigarettes, with unspecified nicotine-induced disorders (9) Old myocardial infarction Status: Chronic (10) Hypertension Status: Chronic Qualifiers: (11) History of coronary artery stent placement Status: Chronic Comment: PCI-MEHRDAD-LAD 08/2014, [id number]-Mid CX and Prox- Mid RCA 03/18/15, Thrombosis of CX stent 03/25/15. MEHRDAD to RCA (2.7 X 16 Promus Synergy) 04/30/2018 (12) Atherosclerosis of coronary artery of [place] heart without angina pectoris Status: Chronic Qualifiers: Coronary Disease-Associated Artery/Lesion type: unspecified vessel or lesion type Qualified Code(s): I25.10 - Atherosclerotic heart disease of [place] coronary artery without angina pectoris Comment: PCI-MEHRDAD-LAD 08/2014, [id number]-Mid CX and Prox-Mid RCA 03/18/15, Thrombosis of CX stent 03/25/15 (13) Ischemic cardiomyopathy Status: Chronic Comment: EF 20% per echo 08/08/2016 (14) Hyperlipidemia Status: Chronic Qualifiers: (15) Type 2 diabetes mellitus Status: Chronic Qualifiers: (16) Chronic systolic CHF (congestive heart failure) Status: Chronic History of Present Illness Date of Admission: 09/18/18 Chief Complaint: Epigastric discomfort Patient is a 43-year-old gentleman with significant past cardiac history including CAD with previous PCI and subsequent stent placement and subsequent ischemic cardiomyopathy with an ejection fraction of 15% presents with chest discomfort symptoms started a day prior to coming in he initially had abdominal cramps associated with diarrhea some nausea. He later felt his discomfort moving up his chest. He therefore presented to the emergency department. Tiesha michelle obtained in the ED came back in the indeterminate zone decision made to admit patient for subsequent monitoring in the hospital given his significant past cardiac history. Past Medical History Past Medical History (Chronic Problems): Chronic Problems (Last Updated 08/20/18 @ 18:04 by Horace Woods DO) Noncompliance (Chronic) Left ventricular thrombus (Chronic) Acute exacerbation of CHF (congestive heart failure) (Chronic) CAD (coronary artery disease) (Chronic) Severe left ventricular systolic dysfunction (Chronic) Polysubstance abuse (Chronic) marijuana, cocaine 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/28/17) SICD per Dr Berry @ [facility] Nicotine dependence (Chronic) Old myocardial infarction (Chronic) Hypertension (Chronic) History of coronary artery stent placement (Chronic 04/30/18) PCI-MEHRDAD-LAD 08/2014, [id number]-Mid CX and Prox-Mid RCA 03/18/15, Thrombosis of CX stent 03/25/15. MEHRDAD to RCA (2.7 X 16 Promus Synergy) 04/30/2018 Atherosclerosis of coronary artery of [place] heart without angina pectoris (Chronic) PCI-MEHRDAD-LAD 08/2014, [id number]-Mid CX and Prox-Mid RCA 03/18/15, Thrombosis of CX stent 03/25/15 Ischemic cardiomyopathy (Chronic) EF 20% per echo 08/08/2016 Hyperlipidemia (Chronic) Type 2 diabetes mellitus (Chronic) Chronic systolic CHF (congestive heart failure) (Chronic) Medical History: Medical History (Last Reviewed 09/18/18 @ 14:28 by Juan R Schreiber MD) CAD (coronary artery disease) (Chronic) I25.10 Severe left ventricular systolic dysfunction (Chronic) I51.9 Polysubstance abuse (Chronic) F19.10 marijuana, cocaine Nicotine dependence (Chronic) F17.200 Old myocardial infarction (Chronic) I25.2 Hypertension (Chronic) I10 Atherosclerosis of coronary artery of [place] heart without angina pectoris (Chronic) I25.10 PCI-MEHRDAD-LAD 08/2014, [id number]-Mid CX and Prox-Mid RCA 03/18/15, Thrombosis of CX stent 03/25/15 Ischemic cardiomyopathy (Chronic) I25.5 EF 20% per echo 08/08/2016 Hyperlipidemia (Chronic) E78.5 Type 2 diabetes mellitus (Chronic) E11.9 Chronic systolic CHF (congestive heart failure) (Chronic) I50.22 Depression F32.9 Peripheral neuropathy G62.9 Allergies No Known Allergies Allergy (Verified 09/18/18 09:30) Home Medications: Ambulatory Orders Medication Instructions Recorded Insulin Aspart [Novolog Flexpen] 0 units SC ACHS 07/06/18 Acetaminophen [Tylenol Tablet] 650 mg PO Q6H PRN PRN #120 tablet 08/07/18 Albuterol Aerosols [Ventolin 2.5 mg INHALATION Q2H PRN PRN #60 08/07/18 Aerosols] vial.neb. Albuterol IH (ProAir) [Proair Hfa] 1 puff INHALATION Q6H PRN PRN #1 08/07/18 inhaler Aspirin E.C. [Ecotrin] 81 mg PO TID #90 tablet 08/07/18 Atorvastatin Calcium 40 mg PO DAILY #30 tablet 08/07/18 Carvedilol 6.25 mg PO BID #60 tab 08/07/18 Clopidogrel Bisulfate [Plavix] 75 mg PO DAILY #30 tablet 08/07/18 Isosorbide Mononitrate [Isosorbide 30 mg PO DAILY #30 tab.er.24h 08/07/18 Mononitrate ER] Losartan Potassium [Cozaar] 25 mg PO DAILY #30 tab 08/07/18 Magnesium Oxide [Magox 400] 400 mg PO DAILY #30 tab 08/07/18 Nitroglycerin (INPATIENT USE) 0.4 mg SUBLINGUAL Q5M PRN #6 tab 08/07/18 [Nitrostat] Potassium Chloride [K-Tab ER] 20 meq PO DAILY #30 tablet.er 08/07/18 Spironolactone 25 mg PO DAILY #30 tab 08/07/18 hydrOXYzine pamoate capsule 50 mg PO TID PRN PRN #60 capsule 08/07/18 [Vistaril pamoate capsule] Senna [Senokot] 2 tablet PO QHS PRN PRN 08/18/18 Furosemide [Lasix] 80 mg PO BIDLX 08/19/18 Insulin Glargine [Lantus SoloStar 20 units SC BID 30 Days #4 pen 08/20/18 Pen] Surgical History: Surgical History (Last Reviewed 09/18/18 @ 14:28 by Juan R Schreiber MD) 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) Onset Date: 06/28/[address] Berry @ [facility] History of coronary artery stent placement (Chronic) Onset Date: 04/30/18 Z95.5 PCI-MEHRDAD-LAD 08/2014, [id number]-Mid CX and Prox-Mid RCA 03/18/15, Thrombosis of CX stent 03/25/15. MEHRDAD to RCA (2.7 X 16 Promus Synergy) 04/30/2018 History of appendectomy Z90.49 Surgical History: - - Cardiac stent August 2014 Smoking Status: Current every day smoker - *Family History Paternal Family History: Family History (Last Reviewed 09/18/18 @ 14:28 by Juan R Schreiber MD) Mother CAD (coronary artery disease) Diabetes Hypertension Myocardial infarction Father CAD (coronary artery disease) Diabetes Hypertension Myocardial infarction Brother Hypertension History Items: Diabetes, High Cholesterol, Heart Disease, Hypertension Maternal Family History: Family History (Last Reviewed 09/18/18 @ 14:28 by Juan R Schreiber MD) Mother CAD (coronary artery disease) Diabetes Hypertension Myocardial infarction Father CAD (coronary artery disease) Diabetes Hypertension Myocardial infarction Brother Hypertension History Items: Diabetes, High Cholesterol, Heart Disease, Hypertension Review of Systems Constitutional: Denies: Anorexia, Chills, Fever, Night Sweats, Weight Change HEENT: Denies: Head Aches, Sinus Congestion, Sinus Drainage Cardiovascular: Reports: Chest Pain. Denies: Orthopnea, Palpitations Respiratory: Denies: Cough, Shortness of breath at rest, Shortness of breath upon exertion, Sputum production Gastrointestinal: Reports: Abdominal Pain, Diarrhea, Nausea. Denies: Hematemesis, Hematochezia, Melena, Vomiting Genitourinary: Denies: Dysuria, Frequency, Hematuria, Urgency Musculoskeletal: Denies: Joint Pain, Joint Tenderness Skin: Denies: Rash Neurological: Denies: Focal weakness, Numbness, Tingling Psychiatric: Reports: Anxiety. Denies: Homicidal Ideations, Suicidal Ideations Hematologic/ Lymphatic: Denies: Easy Bruising, Easy Bleeding VTE Information - Inpt Only VTE Present on Admission: No VTE Mechan Device Prophylaxis: Knee High ELIECER Hose VTE Pharm Prophylaxis ordered?: Yes Objective: GENERAL: Patient appears agitated HEENT: Atraumatic; moist oral mucosa EYES; Anicteric, Normal Conjunctiva NECK; supple, normal thyroid, RESPIRATORY: Diminished to auscultation bilaterally, CARDIOVASCULAR: Regular S1 S2, GI: soft, non-tender, normoactive bowel sounds, : No Renal angle tenderness; EXTREMITIES: No edema, no clubbing, MUSCULOSKELETAL: No Joint Tenderness; NEURO: Awake; no lateralizing signs. SKIN: No Rash PSYCH; anxious - Physical Exam Vital Signs Temp Pulse Resp BP Pulse Ox 97.5 F L 85 16 103/77 98 09/18/18 09:24 09/18/18 13:06 09/18/18 13:06 09/18/18 13:06 09/18/18 13:06 Oxygen Flow Rate (L/min) 2 Oxygen Delivery Method Room Air Weight: 84.2 kg Body Mass Index (BMI) 25.2 Finger Stick Blood Glucose 356 Laboratory Tests Past 24 Hrs 09/18/18 09/18/18 09/18/18 09:40 09:40 12:55 WBC 9.1 RBC 5.22 Hgb 15.1 Hct 43.9 MCV 84.1 MCH 28.9 MCHC 34.4 RDW 13.3 RDW Differential 40.0 Plt Count 305 MPV 10.1 Immature Gran % (Auto) 0.100 Neut % (Auto) 71.7 H Lymph % (Auto) 19.3 [place] % (Auto) 8.0 Eos % (Auto) 0.8 Baso % (Auto) 0.1 Absolute Neuts (auto) 6.5 Absolute Lymphs (auto) 1.75 Total Counted Not Reportable Sodium 136 Potassium 4.5 Chloride 99 Carbon Dioxide 28.0 Anion Gap 9 BUN 9 Creatinine 0.99 Estim Creat Clear Calc 107.78 Est GFR (MDRD) Af Amer 107 Est GFR (MDRD) Non-Af 88 BUN/Creatinine Ratio 9.1 L Glucose 354 H Calcium 8.2 L Total Bilirubin 1.10 H AST 24 ALT 23 Alkaline Phosphatase 82 Troponin I < 0.015 0.022 Total Protein 6.4 Albumin 2.5 L Globulin 3.9 Albumin/Globulin Ratio 0.6 L Lipase 104 Assessment/Plan 43-year-old gentleman with known ischemic cardiomyopathy with an ejection fraction of 15% admitted with epigastric and chest discomfort 1. Chest pain in a patient with known CAD admitted to a monitored bed where [place] is being ruled out with serial cardiac enzymes 2. Chronic heart failure with reduced ejection fraction of 50% 3. Ischemic cardia myopathy with an ejection fraction of 15% 4. Diabetes mellitus type 2 patient apparently noncompliant with therapy presented with significant hyperglycemia with blood glucose in the mid 300s did continue with home regimen in addition to Accu-Cheks before meals and at bedtime with sliding scale coverage. Patient was also placed on 1800 ADA diet 5. History of previous ventricular thrombus patient was not placed on systemic anticoagulation due to his noncompliance with follow-up and medical therapy 6. Polysubstance abuse 7. CAD with previous PCI and stent placement 8. Mild intermittent asthma 9. Essential hypertension 10. DVT prophylaxis SC Lovenox Code Visit OBSV E&M: 99221 Initial observation care L3
--- NOTE | 2018-09-18 14:18 | EKG12_ITS ---
Test Reason : CP ADMISSION Blood Pressure : / mmHG Vent. Rate : 082 BPM Atrial Rate : 082 BPM P-R Int : 160 ms QRS Dur : 098 ms QT Int : 398 ms P-R-T Axes : 065 -74 114 degrees QTc Int : 464 ms Normal sinus rhythm Left anterior fascicular block Anterolateral infarct , age undetermined Abnormal ECG When compared with ECG of 18-SEP-2018 09:22, MANUAL COMPARISON REQUIRED, DATA IS UNCONFIRMED Confirmed by CHAR MCKEON, HAIM ([id number]), state editor EDELMIRA RIVAS ([id number]) on 10/01/2018 2:58:38 PM Referred By: LAUREN Confirmed By:HAIM PARDO MD
[2018-09-18] MEDS: Insulin Lispro 100 UNIT/ML INSULN.PEN SQ ×2 (16:46→22:04)
[2018-09-18 17:00] LABS: Bedside Glucose 405 mg/dL (70-110)
[2018-09-18] MEDS: Furosemide 80 MG Tablet PO (18:18)
[2018-09-18 19:54] LABS: Amphetamine Urine VISTA POSITIVE (<1000 ng/mL); Barbiturate Urine VISTA NEGATIVE (< 200 ng/mL); Benzodiazepine Urine VISTA NEGATIVE (< 200 ng/mL); Cocaine Urine VISTA NEGATIVE (< 300 ng/mL); Ecstacy Urine VISTA NEGATIVE (< 500 ng/mL); Methadone Urine VISTA NEGATIVE (< 300 ng/mL); PCP Urine VISTA NEGATIVE (< 25 ng/mL); THC Urine VISTA POSITIVE (< 50 ng/mL); Vista UDS pH Range 5
[2018-09-18] MEDS: Atorvastatin Calcium 40 MG Tablet PO (22:07)
[2018-09-18] MEDS: Carvedilol 6.25 MG Tablet PO (22:08)
[2018-09-18] MEDS: Acetaminophen 325 MG Tablet 650 MG PO (22:16)
[2018-09-18 23:35] LABS: Bedside Glucose 267 mg/dL (70-110)
[2018-09-19 02:35] VITALS: BP 106/68; PULSE 78; RESP 18; TEMP 36.9; O2SAT 100
[2018-09-19 03:00] VITALS: PULSE 75
[2018-09-19] MEDS: Insulin Lispro 100 UNIT/ML INSULN.PEN SQ ×2 (06:46→11:09)
[2018-09-19 06:55] LABS: Bedside Glucose 259 mg/dL (70-110)
[2018-09-19 06:58] VITALS: O2SAT 97
[2018-09-19 07:02] VITALS: PULSE 82
[2018-09-19 07:22] LABS: Absolute Lymphocyte Count 1.63 X10^3/ul (0.83-4.51); Absolute Neutrophil Count 5.8 X10^3/uL (2.0-7.7); Basophil# 0.01 X10^3/uL; Basophil% 0.1 % (0-1); Eosinophil# 0.13 X10^3/uL; Eosinophils% 1.6 % (0-5); Hematocrit 38.7 % (40-54); Hemoglobin 13.5 g/dl (13.0-16.5); Lymphocyte # 1.63 X10^3/ul (4.0); Mean Corp Hgb Conc 34.9 g/gl (32-36); Mean Corpuscular Hgb 29.4 pg (27.0-32.0); Mean Corpuscular Volume 84.3 fL (80-94); Monocyte# 0.62 X10^3/uL; Monocyte% 7.6 % (0-10); Neutrophil # 5.77 X10^3/uL (2.7-7.7); Neutrophil % 70.6 % (47-70); POSITIVE COUNT NO; POSITIVE DIFFERENTIAL NO; POSITIVE MORPHOLOGY NO; Platelet Count 265 K/mm3 (150-450); RBC Distribution Width SD 39.2 fl (35.1-43.9); Red Blood Count 4.59 M/mm3 (4.6-6.2); White Blood Count 8.2 K/mm3 (4.4-11.0)
[2018-09-19 07:54] LABS: Anion Gap 3 (5-15); BUN 9 mg/dL (7-18); BUN/Creat Ratio 10.4 RATIO (10-20); Calcium,Total 7.6 mg/dL (8.5-10.1); Chloride 101 mmol/L (98-107); Creatinine, Serum 0.87 mg/dL (0.70-1.30); EST Glomerular Filtration Rate 103 mL/min (>60); Est Glom Filt Rate - Afr Amer 125 mL/min (>60); Estimated Creatinine Clearance 122.64 ml/min; Glucose 278 mg/dL (74-106); Magnesium 1.4 mg/dL (1.6-2.6); Potassium 3.5 mmol/L (3.5-5.1); Sodium Level 134 mmol/L (136-145)
[2018-09-19] MEDS: guaiFENesin 10 ML UDC (200MG/10ML) 20 ML PO (08:10)
[2018-09-19] MEDS: Acetaminophen 325 MG Tablet 650 MG PO (08:10)
[2018-09-19] MEDS: Aspirin E.C. 81 MG Tablet PO ×2 (08:10→11:09)
[2018-09-19] MEDS: Magnesium Oxide 400 MG Tablet PO (08:10)
[2018-09-19 08:20] VITALS: BP 98/67; PULSE 87; RESP 16; TEMP 36.5; O2SAT 95
--- NOTE | 2018-09-19 08:35 | DCINST_ITS ---
You will use the following diet at home:: Calorie/Carbohydrate Controlled (specify 1200, 1400, etc) - 1800, Cardiac, Fluid restricted (specify 2000 mls, 1500 mls) - 2000 Your food should be the consistency of: Regular Allergies/Adverse Reactions: Allergies No Known Allergies Allergy (Verified 09/18/18 09:30) Medications to take at Discharge Insulin Aspart [Novolog Flexpen] 0 units SC ACHS 07/06/18 Acetaminophen [Tylenol Tablet] 650 mg PO Q6H PRN PRN #120 tablet 08/07/18 Albuterol Aerosols [Ventolin Aerosols] 2.5 mg INHALATION Q2H PRN PRN #60 vial.neb. 08/07/18 Albuterol IH (ProAir) [Proair Hfa] 1 puff INHALATION Q6H PRN PRN #1 inhaler 08/07/18 Aspirin E.C. [Ecotrin] 81 mg PO TID #90 tablet 08/07/18 Atorvastatin Calcium 40 mg PO DAILY #30 tablet 08/07/18 Carvedilol 6.25 mg PO BID #60 tab 08/07/18 Clopidogrel Bisulfate [Plavix] 75 mg PO DAILY #30 tablet 08/07/18 Isosorbide Mononitrate [Isosorbide Mononitrate ER] 30 mg PO DAILY #30 tab.er.24h 08/07/18 Losartan Potassium [Cozaar] 25 mg PO DAILY #30 tab 08/07/18 Nitroglycerin (INPATIENT USE) [Nitrostat] 0.4 mg SUBLINGUAL Q5M PRN #6 tab 08/07/18 Potassium Chloride [K-Tab ER] 20 meq PO DAILY #30 tablet.er 08/07/18 Spironolactone 25 mg PO DAILY #30 tab 08/07/18 hydrOXYzine pamoate capsule [Vistaril pamoate capsule] 50 mg PO TID PRN PRN #60 capsule 08/07/18 Senna [Senokot] 2 tablet PO QHS PRN PRN 08/18/18 Furosemide [Lasix] 40 mg PO BID #120 tablet 09/19/18 Magnesium Oxide [Mag-Ox 400] 400 mg PO BIDCM #120 tablet 09/19/18 The following prescriptions were given: Furosemide [Lasix] 40 mg PO BID #120 tablet Magnesium Oxide [Mag-Ox 400] 400 mg PO BIDCM #120 tablet Primary Care Physician: Care Physician,No Primary [Primary Care Provider] - Jesus Child DO [STAFF PHYSICIAN] - Please follow up with your Primary Care Physician in: in 5-7 days Test Results: Test results from this visit will be discussed in further detail at your follow- up appointment, if applicable. Please Follow Up With: Faisal Ramirez MD When: as scheduled Proposed Discharge Date: 09/19/18
--- NOTE | 2018-09-19 08:35 | PCM.DC.SUM ---
Discharge Date and Diagnosis - Problem List Patient Problems: Active and Suspected Problems (Last Reviewed 09/18/18 @ 14:28 by Juan R Schreiber MD) Chest pain (Acute) Date of Admission: 09/18/18 Date of Discharge: 09/19/18 - Primary Discharge Diagnosis Active and Suspected Problems (Last Reviewed 09/18/18 @ 14:28 by Juan R Schreiber MD) Chest pain (Acute) - Secondary Discharge Diagnosis Chronic Problems (Last Reviewed 09/18/18 @ 14:28 by Juan R Schreiber MD) Noncompliance (Chronic) Left ventricular thrombus (Chronic) Acute exacerbation of CHF (congestive heart failure) (Chronic) CAD (coronary artery disease) (Chronic) Severe left ventricular systolic dysfunction (Chronic) Polysubstance abuse (Chronic) marijuana, cocaine 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/28/17) SICD per Dr Berry @ [facility] Nicotine dependence (Chronic) Old myocardial infarction (Chronic) Hypertension (Chronic) History of coronary artery stent placement (Chronic 04/30/18) PCI-MEHRDAD-LAD 08/2014, [id number]-Mid CX and Prox-Mid RCA 03/18/15, Thrombosis of CX stent 03/25/15. MEHRDAD to RCA (2.7 X 16 Promus Synergy) 04/30/2018 Atherosclerosis of coronary artery of [place] heart without angina pectoris (Chronic) PCI-MEHRDAD-LAD 08/2014, [id number]-[id number]-Mid CX and Prox-Mid RCA 03/18/15, Thrombosis of CX stent 03/25/15 Ischemic cardiomyopathy (Chronic) EF 20% per echo 08/08/2016 Hyperlipidemia (Chronic) Type 2 diabetes mellitus (Chronic) Chronic systolic CHF (congestive heart failure) (Chronic) Hospital Course and Treatment Consultations 09/19/18 08:30 Consult: Mental Health/Crisis Routine Reason for consult?: depression Date Notified:: 09/19/18 Time notified:: 08:34 Operations: None Summary of Care Provided: 43-year-old gentleman with known ischemic cardiomyopathy with an ejection fraction of 15% admitted with epigastric and chest discomfort 1. Chest pain in a patient with known CAD admitted to a monitored bed where [place] was ruled out with serial cardiac enzymes he was instructed to follow-up with PCP and primary greaser helper for subsequent 2. Chronic heart failure with reduced ejection fraction of 50% 3. Ischemic cardiomyopathy with an ejection fraction of 15% 4. Diabetes mellitus type 2 patient apparently noncompliant with therapy presented with significant hyperglycemia with blood glucose in the mid 300s did continue with home regimen in addition to Accu-Cheks before meals and at bedtime with sliding scale coverage. Patient was also placed on 1800 ADA diet 5. History of previous ventricular thrombus patient was not placed on systemic anticoagulation due to his noncompliance with follow-up and medical therapy 6. Polysubstance abuse 7. CAD with previous PCI and stent placement 8. Mild intermittent asthma 9. Essential hypertension 10. DVT prophylaxis SC Lovenox Patient Problems: Active and Suspected Problems (Last Reviewed 09/18/18 @ 14:28 by Juan R Schreiber MD) Chest pain (Acute) Objective: GENERAL: Patient appears agitated HEENT: Atraumatic; moist oral mucosa EYES; Anicteric, Normal Conjunctiva NECK; supple, normal thyroid, RESPIRATORY: Diminished to auscultation bilaterally, CARDIOVASCULAR: Regular S1 S2, GI: soft, non-tender, normoactive bowel sounds, : No Renal angle tenderness; EXTREMITIES: No edema, no clubbing, MUSCULOSKELETAL: No Joint Tenderness; NEURO: Awake; no lateralizing signs. SKIN: No Rash PSYCH; anxious - Physical Exam Vital Signs Temp Pulse Resp BP Pulse Ox 97.7 F L 87 16 98/67 95 09/19/18 08:20 09/19/18 08:20 09/19/18 08:20 09/19/18 08:20 09/19/18 08:20 Oxygen Flow Rate (L/min) 2 Oxygen Delivery Method Room Air Weight: 84.7 kg Body Mass Index (BMI) 25.6 Finger Stick Blood Glucose 356 Intake and Output for Last 24 Hours 09/17/18 09/18/18 09/19/18 23:59 23:59 23:59 Intake Total 400 / 400 Balance 400 / 400 Laboratory Tests Past 24 Hrs 09/18/18 09/18/18 09/18/18 09:40 09:40 12:55 WBC 9.1 RBC 5.22 Hgb 15.1 Hct 43.9 MCV 84.1 MCH 28.9 MCHC 34.4 RDW 13.3 RDW Differential 40.0 Plt Count 305 MPV 10.1 Immature Gran % (Auto) 0.100 Neut % (Auto) 71.7 H Lymph % (Auto) 19.3 [place] % (Auto) 8.0 Eos % (Auto) 0.8 Baso % (Auto) 0.1 Absolute Neuts (auto) 6.5 Absolute Lymphs (auto) 1.75 Total Counted Not Reportable Sodium 136 Potassium 4.5 Chloride 99 Carbon Dioxide 28.0 Anion Gap 9 BUN 9 Creatinine 0.99 Estim Creat Clear Calc 107.78 Est GFR (MDRD) Af Amer 107 Est GFR (MDRD) Non-Af 88 BUN/Creatinine Ratio 9.1 L Glucose 354 H Calcium 8.2 L Magnesium Total Bilirubin 1.10 H AST 24 ALT 23 Alkaline Phosphatase 82 Troponin I < 0.015 0.022 Total Protein 6.4 Albumin 2.5 L Globulin 3.9 Albumin/Globulin Ratio 0.6 L Lipase 104 Urine Opiates Screen Urine Methadone Screen Ur Barbiturates Screen Ur Phencyclidine Scrn Ur Amphetamines Screen U Methamphetamin-MDMA U Benzodiazepines Scrn Urine Cocaine Screen U Cannabinoids Screen Ur Drug Screen Comment 09/18/18 09/18/18 09/19/18 15:30 18:55 06:50 WBC 8.2 RBC 4.59 L Hgb 13.5 Hct 38.7 L MCV 84.3 MCH 29.4 MCHC 34.9 RDW 13.0 RDW Differential 39.2 Plt Count 265 MPV 10.0 Immature Gran % (Auto) 0.100 Neut % (Auto) 70.6 H Lymph % (Auto) 20.0 [place] % (Auto) 7.6 Eos % (Auto) 1.6 Baso % (Auto) 0.1 Absolute Neuts (auto) 5.8 Absolute Lymphs (auto) 1.63 Total Counted Not Reportable Sodium Potassium Chloride Carbon Dioxide Anion Gap BUN Creatinine Estim Creat Clear Calc Est GFR (MDRD) Af Amer Est GFR (MDRD) Non-Af BUN/Creatinine Ratio Glucose Calcium Magnesium Total Bilirubin AST ALT Alkaline Phosphatase Troponin I < 0.015 Total Protein Albumin Globulin Albumin/Globulin Ratio Lipase Urine Opiates Screen NEGATIVE Urine Methadone Screen NEGATIVE Ur Barbiturates Screen NEGATIVE Ur Phencyclidine Scrn NEGATIVE Ur Amphetamines Screen POSITIVE H U Methamphetamin-MDMA NEGATIVE U Benzodiazepines Scrn NEGATIVE Urine Cocaine Screen NEGATIVE U Cannabinoids Screen POSITIVE H Ur Drug Screen Comment 09/19/18 06:50 WBC RBC Hgb Hct MCV MCH MCHC RDW RDW Differential Plt Count MPV Immature Gran % (Auto) Neut % (Auto) Lymph % (Auto) [place] % (Auto) Eos % (Auto) Baso % (Auto) Absolute Neuts (auto) Absolute Lymphs (auto) Total Counted Sodium 134 L Potassium 3.5 Chloride 101 Carbon Dioxide 30.0 Anion Gap 3 L BUN 9 Creatinine 0.87 Estim Creat Clear Calc 122.64 Est GFR (MDRD) Af Amer 125 Est GFR (MDRD) Non-Af 103 BUN/Creatinine Ratio 10.4 Glucose 278 H Calcium 7.6 L Magnesium 1.4 L Total Bilirubin AST ALT Alkaline Phosphatase Troponin I Total Protein Albumin Globulin Albumin/Globulin Ratio Lipase Urine Opiates Screen Urine Methadone Screen Ur Barbiturates Screen Ur Phencyclidine Scrn Ur Amphetamines Screen U Methamphetamin-MDMA U Benzodiazepines Scrn Urine Cocaine Screen U Cannabinoids Screen Ur Drug Screen Comment POC Glucose 09/19/18 09/18/18 09/18/18 06:42 22:01 16:46 POC Glucose 259 H 267 H 405 H Discharge Diet: Low fat/ Low Cholesterol, 1800 Calorie Control Diet, 8 Cup Fluid Restriciton Home Medications: Medications to take at Discharge Insulin Aspart [Novolog Flexpen] 0 units SC ACHS 07/06/18 Acetaminophen [Tylenol Tablet] 650 mg PO Q6H PRN PRN #120 tablet 08/07/18 Albuterol Aerosols [Ventolin Aerosols] 2.5 mg INHALATION Q2H PRN PRN #60 vial.neb. 08/07/18 Albuterol IH (ProAir) [Proair Hfa] 1 puff INHALATION Q6H PRN PRN #1 inhaler 08/07/18 Aspirin E.C. [Ecotrin] 81 mg PO TID #90 tablet 08/07/18 Atorvastatin Calcium 40 mg PO DAILY #30 tablet 08/07/18 Carvedilol 6.25 mg PO BID #60 tab 08/07/18 Clopidogrel Bisulfate [Plavix] 75 mg PO DAILY #30 tablet 08/07/18 Isosorbide Mononitrate [Isosorbide Mononitrate ER] 30 mg PO DAILY #30 tab.er.24h 08/07/18 Losartan Potassium [Cozaar] 25 mg PO DAILY #30 tab 08/07/18 Nitroglycerin (INPATIENT USE) [Nitrostat] 0.4 mg SUBLINGUAL Q5M PRN #6 tab 08/07/18 Potassium Chloride [K-Tab ER] 20 meq PO DAILY #30 tablet.er 08/07/18 Spironolactone 25 mg PO DAILY #30 tab 08/07/18 hydrOXYzine pamoate capsule [Vistaril pamoate capsule] 50 mg PO TID PRN PRN #60 capsule 08/07/18 Senna [Senokot] 2 tablet PO QHS PRN PRN 08/18/18 Furosemide [Lasix] 40 mg PO BID #120 tablet 09/19/18 Magnesium Oxide [Mag-Ox 400] 400 mg PO BIDCM #120 tablet 09/19/18 Following Prescrptions Were Given to Patient: Furosemide [Lasix] 40 mg PO BID #120 tablet Magnesium Oxide [Mag-Ox 400] 400 mg PO BIDCM #120 tablet Primary Care Physician: Jesus Child DO [STAFF PHYSICIAN] - Care Physician,No Primary [Primary Care Provider] - Please follow up with your Primary Care Physician in: in 5-7 days Please Follow Up With: Faisal Ramirez MD When: as scheduled Disposition: Home Minutes spent on discharge:: 35 Medical Necessity - Tobacco Use Smoking Status: Current every day smoker Tobacco Use: Chew Meaningful Use Info Meaningful Use Diagnoses (Choose all that apply): None applicable Code Visit OBSV E&M: 39386 Observation care discharge
--- NOTE | 2018-09-19 08:40 | DS.PCM_ITS ---
Discharge Date and Diagnosis - Problem List Patient Problems: Active and Suspected Problems (Last Reviewed 09/18/18 @ 14:28 by Juan R Schreiber MD) Chest pain (Acute) Date of Admission: 09/18/18 Date of Discharge: 09/19/18 - Primary Discharge Diagnosis Active and Suspected Problems (Last Reviewed 09/18/18 @ 14:28 by Juan R Schreiber MD) Chest pain (Acute) - Secondary Discharge Diagnosis Chronic Problems (Last Reviewed 09/18/18 @ 14:28 by Juan R Schreiber MD) Noncompliance (Chronic) Left ventricular thrombus (Chronic) Acute exacerbation of CHF (congestive heart failure) (Chronic) CAD (coronary artery disease) (Chronic) Severe left ventricular systolic dysfunction (Chronic) Polysubstance abuse (Chronic) marijuana, cocaine 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/28/17) SICD per Dr Berry @ [facility] Nicotine dependence (Chronic) Old myocardial infarction (Chronic) Hypertension (Chronic) History of coronary artery stent placement (Chronic 04/30/18) PCI-MEHRDAD-LAD 08/2014, VCG-ADS-Wphv-Mid CX and Prox-Mid RCA 03/18/15, Thrombosis of CX stent 03/25/15. MEHRDAD to RCA (2.7 X 16 Promus Synergy) 04/30/2018 Atherosclerosis of coronary artery of platinum heart without angina pectoris (Chronic) PCI-MEHRDAD-LAD 08/2014, BXZ-RAE-Jqay-Mid CX and Prox-Mid RCA 03/18/15, Thrombosis of CX stent 03/25/15 Ischemic cardiomyopathy (Chronic) EF 20% per echo 08/08/2016 Hyperlipidemia (Chronic) Type 2 diabetes mellitus (Chronic) Chronic systolic CHF (congestive heart failure) (Chronic) Hospital Course and Treatment Consultations 09/19/18 08:30 Consult: Mental Health/Crisis Routine Reason for consult?: depression Date Notified:: 09/19/18 Time notified:: 08:34 Operations: None Summary of Care Provided: 43-year-old gentleman with known ischemic cardiomyopathy with an ejection fraction of 15% admitted with epigastric and chest discomfort 1. Chest pain in a patient with known CAD admitted to a monitored bed where DC was ruled out with serial cardiac enzymes he was instructed to follow-up with PCP and primary phone banker for subsequent 2. Chronic heart failure with reduced ejection fraction of 50% 3. Ischemic cardiomyopathy with an ejection fraction of 15% 4. Diabetes mellitus type 2 patient apparently noncompliant with therapy presented with significant hyperglycemia with blood glucose in the mid 300s did continue with home regimen in addition to Accu-Cheks before meals and at bedtime with sliding scale coverage. Patient was also placed on 1800 ADA diet 5. History of previous ventricular thrombus patient was not placed on systemic anticoagulation due to his noncompliance with follow-up and medical therapy 6. Polysubstance abuse 7. CAD with previous PCI and stent placement 8. Mild intermittent asthma 9. Essential hypertension 10. DVT prophylaxis SC Lovenox Patient Problems: Active and Suspected Problems (Last Reviewed 09/18/18 @ 14:28 by Juan R Schreiber MD) Chest pain (Acute) Objective: GENERAL: Patient appears agitated HEENT: Atraumatic; moist oral mucosa EYES; Anicteric, Normal Conjunctiva NECK; supple, normal thyroid, RESPIRATORY: Diminished to auscultation bilaterally, CARDIOVASCULAR: Regular S1 S2, GI: soft, non-tender, normoactive bowel sounds, : No Renal angle tenderness; EXTREMITIES: No edema, no clubbing, MUSCULOSKELETAL: No Joint Tenderness; NEURO: Awake; no lateralizing signs. SKIN: No Rash PSYCH; anxious - Physical Exam Vital Signs Temp Pulse Resp BP Pulse Ox 97.7 F L 87 16 98/67 95 09/19/18 08:20 09/19/18 08:20 09/19/18 08:20 09/19/18 08:20 09/19/18 08:20 Oxygen Flow Rate (L/min) 2 Oxygen Delivery Method Room Air Weight: 84.7 kg Body Mass Index (BMI) 25.6 Finger Stick Blood Glucose 356 Intake and Output for Last 24 Hours 09/17/18 09/18/18 09/19/18 23:59 23:59 23:59 Intake Total 400 / 400 Balance 400 / 400 Laboratory Tests Past 24 Hrs 09/18/18 09/18/18 09/18/18 09:40 09:40 12:55 WBC 9.1 RBC 5.22 Hgb 15.1 Hct 43.9 MCV 84.1 MCH 28.9 MCHC 34.4 RDW 13.3 RDW Differential 40.0 Plt Count 305 MPV 10.1 Immature Gran % (Auto) 0.100 Neut % (Auto) 71.7 H Lymph % (Auto) 19.3 Dubois % (Auto) 8.0 Eos % (Auto) 0.8 Baso % (Auto) 0.1 Absolute Neuts (auto) 6.5 Absolute Lymphs (auto) 1.75 Total Counted Not Reportable Sodium 136 Potassium 4.5 Chloride 99 Carbon Dioxide 28.0 Anion Gap 9 BUN 9 Creatinine 0.99 Estim Creat Clear Calc 107.78 Est GFR (MDRD) Af Amer 107 Est GFR (MDRD) Non-Af 88 BUN/Creatinine Ratio 9.1 L Glucose 354 H Calcium 8.2 L Magnesium Total Bilirubin 1.10 H AST 24 ALT 23 Alkaline Phosphatase 82 Troponin I < 0.015 0.022 Total Protein 6.4 Albumin 2.5 L Globulin 3.9 Albumin/Globulin Ratio 0.6 L Lipase 104 Urine Opiates Screen Urine Methadone Screen Ur Barbiturates Screen Ur Phencyclidine Scrn Ur Amphetamines Screen U Methamphetamin-MDMA U Benzodiazepines Scrn Urine Cocaine Screen U Cannabinoids Screen Ur Drug Screen Comment 09/18/18 09/18/18 09/19/18 15:30 18:55 06:50 WBC 8.2 RBC 4.59 L Hgb 13.5 Hct 38.7 L MCV 84.3 MCH 29.4 MCHC 34.9 RDW 13.0 RDW Differential 39.2 Plt Count 265 MPV 10.0 Immature Gran % (Auto) 0.100 Neut % (Auto) 70.6 H Lymph % (Auto) 20.0 Dubois % (Auto) 7.6 Eos % (Auto) 1.6 Baso % (Auto) 0.1 Absolute Neuts (auto) 5.8 Absolute Lymphs (auto) 1.63 Total Counted Not Reportable Sodium Potassium Chloride Carbon Dioxide Anion Gap BUN Creatinine Estim Creat Clear Calc Est GFR (MDRD) Af Amer Est GFR (MDRD) Non-Af BUN/Creatinine Ratio Glucose Calcium Magnesium Total Bilirubin AST ALT Alkaline Phosphatase Troponin I < 0.015 Total Protein Albumin Globulin Albumin/Globulin Ratio Lipase Urine Opiates Screen NEGATIVE Urine Methadone Screen NEGATIVE Ur Barbiturates Screen NEGATIVE Ur Phencyclidine Scrn NEGATIVE Ur Amphetamines Screen POSITIVE H U Methamphetamin-MDMA NEGATIVE U Benzodiazepines Scrn NEGATIVE Urine Cocaine Screen NEGATIVE U Cannabinoids Screen POSITIVE H Ur Drug Screen Comment 09/19/18 06:50 WBC RBC Hgb Hct MCV MCH MCHC RDW RDW Differential Plt Count MPV Immature Gran % (Auto) Neut % (Auto) Lymph % (Auto) Dubois % (Auto) Eos % (Auto) Baso % (Auto) Absolute Neuts (auto) Absolute Lymphs (auto) Total Counted Sodium 134 L Potassium 3.5 Chloride 101 Carbon Dioxide 30.0 Anion Gap 3 L BUN 9 Creatinine 0.87 Estim Creat Clear Calc 122.64 Est GFR (MDRD) Af Amer 125 Est GFR (MDRD) Non-Af 103 BUN/Creatinine Ratio 10.4 Glucose 278 H Calcium 7.6 L Magnesium 1.4 L Total Bilirubin AST ALT Alkaline Phosphatase Troponin I Total Protein Albumin Globulin Albumin/Globulin Ratio Lipase Urine Opiates Screen Urine Methadone Screen Ur Barbiturates Screen Ur Phencyclidine Scrn Ur Amphetamines Screen U Methamphetamin-MDMA U Benzodiazepines Scrn Urine Cocaine Screen U Cannabinoids Screen Ur Drug Screen Comment POC Glucose 09/19/18 09/18/18 09/18/18 06:42 22:01 16:46 POC Glucose 259 H 267 H 405 H Discharge Diet: Low fat/ Low Cholesterol, 1800 Calorie Control Diet, 8 Cup Fluid Restriciton Home Medications: Medications to take at Discharge Insulin Aspart [Novolog Flexpen] 0 units SC ACHS 07/06/18 Acetaminophen [Tylenol Tablet] 650 mg PO Q6H PRN PRN #120 tablet 08/07/18 Albuterol Aerosols [Ventolin Aerosols] 2.5 mg INHALATION Q2H PRN PRN #60 vial.neb. 08/07/18 Albuterol IH (ProAir) [Proair Hfa] 1 puff INHALATION Q6H PRN PRN #1 inhaler 08/07/18 Aspirin E.C. [Ecotrin] 81 mg PO TID #90 tablet 08/07/18 Atorvastatin Calcium 40 mg PO DAILY #30 tablet 08/07/18 Carvedilol 6.25 mg PO BID #60 tab 08/07/18 Clopidogrel Bisulfate [Plavix] 75 mg PO DAILY #30 tablet 08/07/18 Isosorbide Mononitrate [Isosorbide Mononitrate ER] 30 mg PO DAILY #30 tab.er.24h 08/07/18 Losartan Potassium [Cozaar] 25 mg PO DAILY #30 tab 08/07/18 Nitroglycerin (INPATIENT USE) [Nitrostat] 0.4 mg SUBLINGUAL Q5M PRN #6 tab 08/07/18 Potassium Chloride [K-Tab ER] 20 meq PO DAILY #30 tablet.er 08/07/18 Spironolactone 25 mg PO DAILY #30 tab 08/07/18 hydrOXYzine pamoate capsule [Vistaril pamoate capsule] 50 mg PO TID PRN PRN #60 capsule 08/07/18 Senna [Senokot] 2 tablet PO QHS PRN PRN 08/18/18 Furosemide [Lasix] 40 mg PO BID #120 tablet 09/19/18 Magnesium Oxide [Mag-Ox 400] 400 mg PO BIDCM #120 tablet 09/19/18 Following Prescrptions Were Given to Patient: Furosemide [Lasix] 40 mg PO BID #120 tablet Magnesium Oxide [Mag-Ox 400] 400 mg PO BIDCM #120 tablet Primary Care Physician: Jesus Child DO [STAFF PHYSICIAN] - Care Physician,No Primary [Primary Care Provider] - Please follow up with your Primary Care Physician in: in 5-7 days Please Follow Up With: Faisal Ramirez MD When: as scheduled Disposition: Home Minutes spent on discharge:: 35 Medical Necessity - Tobacco Use Smoking Status: Current every day smoker Tobacco Use: Chew Meaningful Use Info Meaningful Use Diagnoses (Choose all that apply): None applicable Code Visit OBSV E&M: 49356 Observation care discharge
[2018-09-19] MEDS: Enoxaparin 40 MG/0.4 ML Syringe SC (09:08)
[2018-09-19] MEDS: Carvedilol 6.25 MG Tablet PO (09:08)
[2018-09-19] MEDS: Clopidogrel Bisulfate 75 MG Tablet PO (09:08)
[2018-09-19 11:15] LABS: Bedside Glucose 288 mg/dL (70-110)
== END 2018-09-19 08:35 | disposition home or self-care (01) ==
LOC: ED 10:01 → PCU 13:50
PROVIDERS: Admitting Provider Internal Medicine; Emergency Provider Emergency Medicine; Visit Provider Internal Medicine
DX: R07.89 Other chest pain (principal); I25.10 Atherosclerotic heart disease of native coronary artery without angina pectoris; E78.5 Hyperlipidemia, unspecified; I25.2 Old myocardial infarction; I11.0 Hypertensive heart disease with heart failure; I50.22 Chronic systolic (congestive) heart failure; F12.10 Cannabis abuse, uncomplicated; F14.10 Cocaine abuse, uncomplicated; Z95.5 Presence of coronary angioplasty implant and graft; I44.4 Left anterior fascicular block; Z91.14 Patient's other noncompliance with medication regimen; Z95.810 Presence of automatic (implantable) cardiac defibrillator; Z79.4 Long term (current) use of insulin; Z79.82 Long term (current) use of aspirin; Z79.899 Other long term (current) drug therapy; E11.42 Type 2 diabetes mellitus with diabetic polyneuropathy; Z79.02 Long term (current) use of antithrombotics/antiplatelets; J45.20 Mild intermittent asthma, uncomplicated; I25.5 Ischemic cardiomyopathy
CPT/HCPCS: 36415; 71046; 80048; 80053; 80307; 82962; 83690; 83735; 84484; 85025; 93005; 96372; 96374; 99218; 99285; A4216; G0378; J2405

== ENCOUNTER 2018-10-05 09:04 | Emergency (ER) | payer MEDICAID, SELFPAY ==
[2018-04-30 13:15] VITALS: BMI 25.9
[2018-10-03 11:21] VITALS: BMI 25.6
[2018-10-05 09:05] VITALS: BP 117/86; PULSE 85; RESP 16; TEMP 36.5; O2SAT 97; BMI 25.2
--- NOTE | 2018-10-05 09:14 | EKG12_ITS ---
Test Reason : WEAKNESS Blood Pressure : / mmHG Vent. Rate : 083 BPM Atrial Rate : 083 BPM P-R Int : 170 ms QRS Dur : 108 ms QT Int : 416 ms P-R-T Axes : 068 -75 078 degrees QTc Int : 488 ms Normal sinus rhythm Possible Left atrial enlargement Left anterior fascicular block Anterolateral infarct (cited on or before 05-DEC-2014), age undetermined Abnormal ECG Confirmed by CHAR MCKEON, HAIM ([id number]), publication editor PANCHITO SUTTON ([id number]) on 10/09/2018 8:46:51 AM Referred By: LATONYA Confirmed By:HAIM PARDO MD
[2018-10-05 09:16] LABS: Bedside Glucose 123 mg/dL (70-110)
--- NOTE | 2018-10-05 09:17 | ED.DCSUM_ITS ---
- ER Visit Summary Date of Service: 10/05/18 Chief Complaint: Weakness History of Present Illness: The patient is a 43 M who presents for weakness since yesterday. Patient states he got a Trulicity injection for the first time yesterday. Since then he is felt very low energy and does not want to do anythi ng. He is gotten up once to go to the bathroom but otherwise only wants to lay around. He has an associated mild headache. He denies any fever, chest pain, shortness of breath, abdominal pain, nausea or vomiting, or other associated symptoms. Patient has history of coronary artery disease, CHF, diabetes, hypertension, high cholesterol. He does drink alcohol and use tobacco but states he has not had anything to drink since yesterday. He also smokes marijuana but states he has not smoked for a couple days. Physical Examination: Vital signs: afebrile, hemodynamically stable, no hypoxia on room air General: well nourished, well developed, in no distress Skin: warm, dry, no rash, no pallor HEENT: normocephalic and atraumatic; PERRL, EOMI, moist mucous membranes Cardiovascular: regular rate and rhythm without murmurs, no peripheral edema, 2+ pulses all distal extremities Respiratory: No increased work of breathing, lungs are clear to auscultation bilaterally, no rales, rhonchi or wheezing Abdominal: Abdomen is soft, nontender with normoactive bowel sounds, no guarding or rebound, no masses MSK: Moves all extremities, no deformities, normal strength Neuro: Awake and alert, oriented ?4. No facial droop, sensation and motor function intact and symmetric Test Results: Abnormal Lab Results 10/05/18 10/05/18 10/05/18 09:10 09:20 09:20 WBC 7.8 RBC 5.51 Hgb 16.3 Hct 47.1 MCV 85.5 MCH 29.6 MCHC 34.6 RDW 13.3 RDW Differential 41.4 Plt Count 226 MPV 9.4 Immature Gran % (Auto) 0.000 Neut % (Auto) 55.2 Lymph % (Auto) 33.5 Carroll % (Auto) 9.4 Eos % (Auto) 1.8 Baso % (Auto) 0.1 Absolute Neuts (auto) 4.3 Absolute Lymphs (auto) 2.61 Total Counted Not Reportable Sodium 138 Potassium 3.5 Chloride 103 Carbon Dioxide 30.0 Anion Gap 5 BUN 12 Creatinine 0.85 Estim Creat Clear Calc 125.53 Est GFR (MDRD) Af Amer 128 Est GFR (MDRD) Non-Af 106 BUN/Creatinine Ratio 14.2 Glucose 122 H Calcium 8.7 Total Bilirubin 0.50 AST 18 ALT 20 Alkaline Phosphatase 84 Troponin I < 0.015 Total Protein 7.1 Albumin 2.9 L Globulin 4.2 Albumin/Globulin Ratio 0.7 L POC Glucose 123 H Emergency Department Course and Treatment: Patient has no focal neuro deficits that would be concerning for stroke. Patient's blood sugar is 123. EKG showed no ischemic changes and no change from prior. Troponin negative. Patient had no lab derangements that would be concerning as an underlying cause of his weakness. The side effects of Trulicity were reviewed, and fatigue was listed as a side effect in 4 to 6% of users. Patient's weakness is described by him as low energy, and at this time of my professional opinion patient does not have any emergent condition that would require admission or further work-up. Patient states he is going to go home and take a nap. He was discharged home and is to follow-up with his primary care doctor regarding the concern for possible medication side effect. Treatment Plan: [] Disposition: [] Impression: fatigue; medication side effect This note was generated with [employer] dictation software. It may contain incorrect words, spelling, and punctuation that were not noted in review of the chart prior to signing ED Disposition - Plan for ED Patient: Disposition: Home or Assisted Living Instructions: ED Weakness [facility] Referrals: Tammie Nieves MD [Primary Care Provider] - 1-2 Days if not improving Additional Instructions: Your fatigue may be a side effect of the new medication you are on. Please talk to your doctor about your fatigue and the possibility it is due to the Trulicity if you continue to feel this way. Can you all your medications as prescribed. If you have any worsening of your condition or any new concerning symptoms, please return immediately to the emergency department for another evaluation.
[2018-10-05 09:32] LABS: Absolute Lymphocyte Count 2.61 X10^3/ul (0.83-4.51); Absolute Neutrophil Count 4.3 X10^3/uL (2.0-7.7); Basophil# 0.01 X10^3/uL; Basophil% 0.1 % (0-1); Eosinophil# 0.14 X10^3/uL; Eosinophils% 1.8 % (0-5); Hematocrit 47.1 % (40-54); Hemoglobin 16.3 g/dl (13.0-16.5); Lymphocyte # 2.61 X10^3/ul (4.0); Lymphocyte % 33.5 % (19-41); Mean Corp Hgb Conc 34.6 g/gl (32-36); Mean Corpuscular Hgb 29.6 pg (27.0-32.0); Mean Corpuscular Volume 85.5 fL (80-94); Mean Platelet Vol. 9.4 fl (6.2-12.0); Monocyte# 0.73 X10^3/uL; Monocyte% 9.4 % (0-10); Neutrophil # 4.29 X10^3/uL (2.7-7.7); Neutrophil % 55.2 % (47-70); POSITIVE COUNT NO; POSITIVE DIFFERENTIAL NO; POSITIVE MORPHOLOGY NO; Platelet Count 226 K/mm3 (150-450); RBC Distribution Width CV 13.3 % (11.6-14.6); RBC Distribution Width SD 41.4 fl (35.1-43.9); Red Blood Count 5.51 M/mm3 (4.6-6.2); White Blood Count 7.8 K/mm3 (4.4-11.0)
[2018-10-05 09:47] LABS: ALB/GLOB Ratio 0.7 RATIO (0.9-2.4); AST(SGOT) 18 U/L (15-37); Alanine Aminotransfer ALT/SGPT 20 U/L (16-61); Albumin, Serum 2.9 g/dL (3.2-5.0); Alkaline Phosphatase 84 U/L (45-117); Anion Gap 5 (5-15); BUN 12 mg/dL (7-18); BUN/Creat Ratio 14.2 RATIO (10-20); Calcium,Total 8.7 mg/dL (8.5-10.1); Chloride 103 mmol/L (98-107); Creatinine, Serum 0.85 mg/dL (0.70-1.30); EST Glomerular Filtration Rate 106 mL/min (>60); Est Glom Filt Rate - Afr Amer 128 mL/min (>60); Estimated Creatinine Clearance 125.53 ml/min; Globulin 4.2 g/dL (2.2-4.2); Glucose 122 mg/dL (74-106); Potassium 3.5 mmol/L (3.5-5.1); Protein, Total 7.1 g/dL (6.4-8.2); Sodium Level 138 mmol/L (136-145)
[2018-10-05 10:45] VITALS: BP 125/84; PULSE 68; RESP 15; O2SAT 98
== END 2018-10-05 10:46 | disposition home or self-care (01) ==
PROVIDERS: Emergency Medicine; Emergency Provider Emergency Medicine; Family Provider Internal Medicine; PCP Internal Medicine
DX: R53.83 Other fatigue (principal); T38.3X5A Adverse effect of insulin and oral hypoglycemic [antidiabetic] drugs, initial encounter; I50.9 Heart failure, unspecified; I11.0 Hypertensive heart disease with heart failure; E11.9 Type 2 diabetes mellitus without complications; I25.10 Atherosclerotic heart disease of native coronary artery without angina pectoris; Z72.0 Tobacco use; E78.00 Pure hypercholesterolemia, unspecified; Z79.84 Long term (current) use of oral hypoglycemic drugs; Z79.82 Long term (current) use of aspirin; Z79.899 Other long term (current) drug therapy
CPT/HCPCS: 80053; 82962; 84484; 85025; 93005; 99285; A4216

== ENCOUNTER 2018-10-20 03:03 | Emergency (ER) | payer MEDICAID, SELFPAY ==
[2018-04-30 13:15] VITALS: BMI 25.9
[2018-10-20 03:04] VITALS: BP 122/88; PULSE 103; RESP 23; TEMP 36.9; O2SAT 93; BMI 29.4
[2018-10-20 03:08] VITALS: O2SAT 95
--- NOTE | 2018-10-20 03:35 | EKG12_ITS ---
Test Reason : SOB Blood Pressure : / mmHG Vent. Rate : 101 BPM Atrial Rate : 101 BPM P-R Int : 162 ms QRS Dur : 096 ms QT Int : 348 ms P-R-T Axes : 066 -71 090 degrees QTc Int : 451 ms Sinus tachycardia Possible Left atrial enlargement Left anterior fascicular block Anteroseptal infarct (cited on or before 05-DEC-2014) Abnormal ECG Confirmed by LYNDSEY RHODES ([id number]), publication editor GARRISON GAR ([id number]) on 10/24/2018 2:02:55 PM Referred By: JARAD Confirmed By:LYNDSEY RHODES
--- NOTE | 2018-10-20 03:35 | RAD_ITS ---
STUDY: X-RAY CHEST REASON FOR EXAM: Male, 43 years old. Shortness of breath and cough. TECHNIQUE: Single AP portable view of the chest. COMPARISON: September 18, 2018. FINDINGS: Cardiac monitoring leads are present. Patient has an extracardiac defibrillator. The lungs are hyperexpanded. There is right-sided infrahilar airspace consolidation atelectasis possibly representing pneumonia. There is mild prominence of bronchovascular markings. There is no demonstrated pleural abnormality. There is mild cardiac enlargement. Normal mediastinum and kelly. There is prominence of the pulmonary hilar arteries with peripheral pulmonary vascular congestion. There is atherosclerotic tortuosity of the aortic arch and descending thoracic aorta. Normal visualized thoracic spine. Normal visualized ribs, clavicles, and shoulders. There is no demonstrated abnormality of the visualized soft tissue structures of the upper abdomen. RAD/Chest 1 View (Portable) IMPRESSION: 1. Cardiomegaly and mild pulmonary congestion. 2. Right-sided infrahilar airspace consolidation and atelectasis possibly representing pneumonia. Electronically Signed: Kelly Sr MD at 5:02 EDT , Service support ,
[2018-10-20 03:53] LABS: Absolute Lymphocyte Count 2.27 X10^3/ul (0.83-4.51); Basophil# 0.01 X10^3/uL; Basophil% 0.1 % (0-1); Eosinophil# 0.12 X10^3/uL; Eosinophils% 1.7 % (0-5); Hematocrit 38.9 % (40-54); Hemoglobin 13.3 g/dl (13.0-16.5); Lymphocyte # 2.27 X10^3/ul (4.0); Lymphocyte % 32.4 % (19-41); Mean Corp Hgb Conc 34.2 g/gl (32-36); Mean Corpuscular Hgb 29.9 pg (27.0-32.0); Mean Corpuscular Volume 87.4 fL (80-94); Mean Platelet Vol. 9.9 fl (6.2-12.0); Monocyte% 8.6 % (0-10); Neutrophil # 4.01 X10^3/uL (2.7-7.7); Neutrophil % 57.2 % (47-70); Platelet Count 122 K/mm3 (150-450); RBC Distribution Width CV 13.4 % (11.6-14.6); RBC Distribution Width SD 42.4 fl (35.1-43.9); Red Blood Count 4.45 M/mm3 (4.6-6.2)
[2018-10-20 03:54] LABS: POSITIVE COUNT NO; POSITIVE DIFFERENTIAL NO; POSITIVE MORPHOLOGY NO
[2018-10-20 03:56] LABS: Anion Gap 9 (5-15); BUN 15 mg/dL (7-18); BUN/Creat Ratio 15.4 RATIO (10-20); Calcium,Total 8.1 mg/dL (8.5-10.1); Chloride 107 mmol/L (98-107); Creatinine, Serum 0.98 mg/dL (0.70-1.30); EST Glomerular Filtration Rate 90 mL/min (>60); Est Glom Filt Rate - Afr Amer 109 mL/min (>60); Estimated Creatinine Clearance 108.88 ml/min; Glucose 276 mg/dL (74-106); Lactic Acid 1.1 mmol/L (0.4-2.0); Potassium 3.8 mmol/L (3.5-5.1); Sodium Level 141 mmol/L (136-145)
[2018-10-20] MEDS: Ipratropium/Albuterol Sulfate 3 ML AMPUL.NEB INHALATION (04:10)
[2018-10-20] MEDS: Albuterol 2.5 MG/3 ML VIAL.NEB. INHALATION (04:10)
[2018-10-20 04:11] VITALS: PULSE 98; RESP 20
[2018-10-20 04:11] LABS: Blood Gas Specimen Type VEN; O2 Delivery Device Room Air; SITE OTHER; VBG BASE EXCESS 0 mmol/L (-1.0-3.5); VBG Bicarbonate 25 mmol/L (22-26); VBG Oxygen Content 26 mmol/L (23-33); VBG PO2 55 mmHg (25-40); VBG SO2 89 % (50-70); VBG pCO2 36.7 mmHg (41-51); VBG pH 7.43 (7.32-7.42)
[2018-10-20 05:06] VITALS: BP 113/51; PULSE 99; RESP 24; O2SAT 99
[2018-10-20 05:12] VITALS: BP 113/51; PULSE 99; RESP 23; TEMP 36.6; O2SAT 99
--- NOTE | 2018-10-20 05:16 | ED.VISSUMM ---
- ER Visit Summary Date of Service: 10/20/18 Chief Complaint: Shortness of breath History of Present Illness: The patient is a 43 M who presents with shortness of breath. This is been going on for about 5 days. He also reports productive cough. On initial exam the patient was very somnolent and kept falling asleep which limited the history. No vomiting. No documented fevers. He denies any pain. Physical Examination: Heart rate 103, respiratory rate 23 pulse ox 93% No distress Slightly diaphoretic Moist mucous membranes Heart regular tachycardia Scattered wheezing and tachypnea Abdomen soft Somnolent but arousable to repeat stimulation Test Results: EKG shows sinus rhythm at a rate of 101. CBC BMP troponin unremarkable. VBG shows normal PCO2. Lactic acid normal. Chest x-ray shows cardiomegaly and mild congestion as well as right consolidation possible pneumonia. Emergency Department Course and Treatment: Given patient's initial presentation I was concerned for hypercapnia. ABG was attempted x1 and he refused any further attempts. VBG was obtained which shows normal PCO2 which does rule out arterial hypercarbia. On reevaluation the patient is much more alert answering questions appropriately and has been able to ambulate to and from the bathroom without difficulty. He is maintaining a normal oxygen saturation or heart rate. He does not have leukocytosis. His lactic acid is normal. He is afebrile. Therefore I do feel he is a good candidate for outpatient treatment. He has had hospitalizations within the last 3 months but to be short observation status. We will treat with Levaquin. Treatment Plan: [] Disposition: Discharge Impression: Healthcare associated pneumonia This note was generated with [employer] dictation software. It may contain incorrect words, spelling, and punctuation that were not noted in review of the chart prior to signing ED Disposition - Plan for ED Patient: Referrals: Tammie Nieves MD [Primary Care Provider] -
--- NOTE | 2018-10-20 05:19 | ED.DEP ---
ED Disposition - Plan for ED Patient: Instructions: PNEUMONIA (Adult) Prescriptions: levoFLOXacin tablet [Levaquin] 500 mg PO DAILY #7 tab Prescription Printed Referrals: Tammie Nieves MD [Primary Care Provider] -
== END 2018-10-20 06:55 | disposition home or self-care (01) ==
PROVIDERS: Emergency Provider Emergency Medicine; Family Provider Internal Medicine; PCP Internal Medicine
DX: J18.9 Pneumonia, unspecified organism (principal); Y95 Nosocomial condition; I25.2 Old myocardial infarction; I11.0 Hypertensive heart disease with heart failure; I50.9 Heart failure, unspecified; Z72.0 Tobacco use; I25.10 Atherosclerotic heart disease of native coronary artery without angina pectoris; E11.9 Type 2 diabetes mellitus without complications
CPT/HCPCS: 71045; 80048; 82803; 83605; 84484; 85025; 87040; 93005; 94640; 99284; A4216

== ENCOUNTER 2018-11-19 11:32 | Emergency (ER) | payer MEDICAID, SELFPAY ==
[2018-04-30 13:15] VITALS: BMI 25.9
[2018-11-19 11:33] VITALS: BP 110/72; PULSE 104; RESP 17; TEMP 36.4; O2SAT 100; BMI 26.9
--- NOTE | 2018-11-19 12:35 | ED.RN ---
patient left without being seen at 1225.
== END 2018-11-19 15:37 | disposition left against medical advice (07) ==
LOC: ED 12:37
PROVIDERS: Emergency Provider Emergency Medicine; Family Provider Internal Medicine; PCP Internal Medicine
DX: R06.02 Shortness of breath (principal)

== ENCOUNTER 2018-12-04 23:23 | Inpatient (IN) | payer MEDICAID, SELFPAY ==
[2018-04-30 13:15] VITALS: BMI 25.9
[2018-11-28 13:50] VITALS: BMI 27.1
[2018-12-04 23:23] VITALS: BP 129/98; PULSE 104; RESP 19; O2SAT 100
[2018-12-04 23:27] VITALS: BP 131/101; PULSE 107; RESP 20; TEMP 36.9; O2SAT 95; BMI 28.3
--- NOTE | 2018-12-04 23:32 | EKG12_ITS ---
Test Reason : CP Blood Pressure : / mmHG Vent. Rate : 105 BPM Atrial Rate : 105 BPM P-R Int : 166 ms QRS Dur : 110 ms QT Int : 386 ms P-R-T Axes : 048 -66 081 degrees QTc Int : 510 ms Sinus tachycardia Possible Left atrial enlargement Incomplete right bundle branch block Left anterior fascicular block Possible Lateral infarct (cited on or before 05-DEC-2014), age undetermined Abnormal ECG Confirmed by LYNDSEY RHODES ([id number]), city editor PANCHITO SUTTON ([id number]) on 12/05/2018 2:29:51 PM Referred By: Benjamin Cerna Confirmed By:LYNDSEY RHODES
--- NOTE | 2018-12-04 23:32 | RAD_ITS ---
STUDY: X-RAY CHEST REASON FOR EXAM: Male, 43 years old. Defibrillator TECHNIQUE: Fired Single AP portable view of the chest. COMPARISON: October 20, 2018 chest x-ray, August 05, 2018 FINDINGS: There is a patchy-appearing right middle lobe infiltrate There is no demonstrated pleural abnormality. There is mild cardiac enlargement. Normal mediastinum and kelly. Normal visualized pulmonary arteries. There is atherosclerotic tortuosity of the aortic arch and descending thoracic aorta. Normal visualized thoracic spine. Normal visualized ribs, clavicles, and shoulders. There is no demonstrated abnormality of the visualized soft tissue structures of the upper abdomen. RAD/Chest 1 View (Portable) IMPRESSION: Chronic-appearing right lower lobe infiltrate slightly more apparent than August 05, 2018 11 persistent scattered consider follow-up CT scan of the chest when appropriate. Defibrillator overlying the right side of the heart. Electronically Signed: Sparkle Newton MD at 23:53 EDT Tel , Service support ,
[2018-12-04] MEDS: Aspirin 81 MG TAB.CHEW 324 MG PO (23:48)
[2018-12-04 23:49] LABS: Absolute Neutrophil Count 5.9 X10^3/uL (2.0-7.7); Basophil# 0.02 X10^3/uL; Basophil% 0.2 % (0-1); Eosinophil# 0.19 X10^3/uL; Eosinophils% 2.1 % (0-5); Hemoglobin 13.6 g/dL (13.0-16.5); Lymphocyte % 24.4 % (19-41); Mean Corpuscular Hgb 30.5 pg (27.0-32.0); Mean Corpuscular Volume 89.7 fL (80-94); Mean Platelet Vol. 9.2 fl (6.2-12.0); Monocyte# 0.65 X10^3/uL; Monocyte% 7.2 % (0-10); NRBC Flagged by Analyzer 0 % (0-5); Neutrophil # 5.92 X10^3/uL (2.7-7.7); Neutrophil % 65.9 % (47-70); Platelet Count 219 K/mm3 (150-450); RBC Distribution Width CV 13.7 % (11.6-14.6); RBC Distribution Width SD 45.3 fl (35.1-43.9); Red Blood Count 4.46 M/mm3 (4.6-6.2)
[2018-12-05] VITALS (36 sets, daily range): BP systolic 100–137; BP diastolic 59–110; PULSE 79–105; RESP 11–28; TEMP 35.5–36.9; O2SAT 92–100; BMI 27.7
[2018-12-05 00:05] LABS: Anion Gap 8 (5-15); BUN 15 mg/dL (7-18); Calcium,Total 8.8 mg/dL (8.5-10.1); Chloride 107 mmol/L (98-107); Creatinine, Serum 1.07 mg/dL (0.70-1.30); EST Glomerular Filtration Rate 81 mL/min (>60); Est Glom Filt Rate - Afr Amer 98 mL/min (>60); Estimated Creatinine Clearance 99.72 ml/min; Glucose 112 mg/dL (74-106); Magnesium 1.8 mg/dL (1.6-2.6); Potassium 3.3 mmol/L (3.5-5.1); Sodium Level 142 mmol/L (136-145)
--- NOTE | 2018-12-05 01:14 | HP.PCM_ITS ---
Problem List (1) ICD (implantable cardioverter-defibrillator) discharge Status: Acute History of Present Illness Date of Admission: 12/05/18 Chief Complaint: icd shocks x 3 The patient is a 43 year old M with a significant history of CAD status post drug-eluting stent; previous cocaine use ischemic cardiomyopathy (ejection fraction of 15% ; and stage III diastolic dysfunction on surface echo on 07/07/2017) tobacco abuse; and marijuana abuse who presented because his subcutaneous ICD gave him 3 shocks.. Associated with symptoms is palpitations and shortness of breath. Also patient complains of soreness of his chest secondary to shocks from ICD. Past Medical History Past Medical History (Chronic Problems): Chronic Problems (Last Reviewed 12/05/18 @ 02:39 by Benjamin Cerna MD) Peripheral neuropathy (Chronic) Depression with anxiety (Chronic) Noncompliance (Chronic) Left ventricular thrombus (Chronic) Acute exacerbation of CHF (congestive heart failure) (Chronic) CAD (coronary artery disease) (Chronic) Severe left ventricular systolic dysfunction (Chronic) Polysubstance abuse (Chronic) marijuana, cocaine 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/28/17) SICD per Dr Berry @ [facility] Nicotine dependence (Chronic) Old myocardial infarction (Chronic) Hypertension (Chronic) History of coronary artery stent placement (Chronic 04/30/18) PCI-MEHRDAD-LAD 08/2014, [id number]-Mid CX and Prox-Mid RCA 03/18/15, Thrombosis of CX stent 03/25/15. MEHRDAD to RCA (2.7 X 16 Promus Synergy) 04/30/2018 Atherosclerosis of coronary artery of [place] heart without angina pectoris (Chronic) PCI-MEHRDAD-LAD 08/2014, NWQ-[id number]-Extq-Mid CX and Prox-Mid RCA 03/18/15, Thrombosis of CX stent 03/25/15 Ischemic cardiomyopathy (Chronic) EF 20% per echo 08/08/2016 Hyperlipidemia (Chronic) Type 2 diabetes mellitus (Chronic) Chronic systolic CHF (congestive heart failure) (Chronic) Medical History: Medical History (Last Reviewed 12/05/18 @ 05:09 by Benjamin Cerna MD) CAD (coronary artery disease) (Chronic) I25.10 Severe left ventricular systolic dysfunction (Chronic) I51.9 Polysubstance abuse (Chronic) F19.10 marijuana, cocaine Nicotine dependence (Chronic) F17.200 Old myocardial infarction (Chronic) I25.2 Hypertension (Chronic) I10 Atherosclerosis of coronary artery of [place] heart without angina pectoris (Chronic) I25.10 PCI-MEHRDAD-LAD 08/2014, EMC-NLN-Nimp-Mid CX and Prox-Mid RCA 03/18/15, Thrombosis of CX stent 03/25/15 Ischemic cardiomyopathy (Chronic) I25.5 EF 20% per echo 08/08/2016 Hyperlipidemia (Chronic) E78.5 Type 2 diabetes mellitus (Chronic) E11.9 Chronic systolic CHF (congestive heart failure) (Chronic) I50.22 Depression F32.9 Peripheral neuropathy G62.9 Allergies No Known Allergies Allergy (Verified 11/28/18 13:46) Home Medications: Ambulatory Orders Medication Instructions Recorded Carvedilol 6.25 mg PO BID #60 tab 08/07/18 Losartan Potassium [Cozaar] 25 mg PO DAILY #30 tab 08/07/18 Potassium Chloride [K-Tab ER] 20 meq PO DAILY #30 tablet.er 08/07/18 Spironolactone 25 mg PO DAILY #30 tab 08/07/18 Senna [Senokot] 2 tab PO QHS PRN PRN 08/18/18 Magnesium Oxide [Mag-Ox 400] 400 mg PO BIDCM #120 tab 09/19/18 blood sugar diagnostic strips See Dose Instructions .ROUTE 10/03/18 .MEDSUPPLY #50 ea blood-glucose meter kit See Dose Instructions .ROUTE 10/03/18 .MEDSUPPLY #1 ea clopidogrel 75 mg tablet 75 mg PO DAILY #90 tab 10/03/18 escitalopram 5 mg tablet 5 mg PO DAILY #90 tab 10/03/18 lancets 28 gauge See Dose Instructions .ROUTE 10/03/18 .MEDSUPPLY #50 ea nitroglycerin 0.4 mg sublingual 0.4 mg SUBLINGUAL Q5M PRN #6 tab 10/03/18 tablet furosemide 40 mg tablet 40 mg PO BID tab 10/05/18 insulin aspart (U-100) 100 unit/mL See Protocol SUBCUT ACHS PRN ml 10/05/18 (3 mL) subcutaneous pen metformin ER 1,000 mg 24 hr 1,000 mg PO QPM #90 tab 10/05/18 tablet,extended release acetaminophen 325 mg tablet 650 mg PO BID PRN #90 tab 11/02/18 aspirin 81 mg tablet,delayed 81 mg PO TID #90 tab 11/02/18 release pen needle, diabetic 31 gauge x See Rx Instructions .ROUTE 11/02/1809/13 .MEDSUPPLY #100 ea albuterol sulfate 2.5 mg/3 mL 2.5 mg INHALATION Q2H PRN PRN #90 11/28/18 (0.083 %) solution for nebulization ml albuterol sulfate HFA 90 1 puff INHALATION Q6H PRN PRN #8.5 11/28/18 mcg/actuation aerosol inhaler g gabapentin 300 mg capsule 300 mg PO BID #60 cap 11/28/18 insulin glargine (U-100) 100 34 unit SC DAILY #15 ml 11/28/18 unit/mL (3 mL) subcutaneous pen atorvastatin 40 mg tablet 40 mg PO DAILY #30 tab 12/04/18 Surgical History: Surgical History (Last Reviewed 12/05/18 @ 02:39 by Benjamin Cerna MD) 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) Onset Date: 06/28/[address] Berry @ [facility] History of coronary artery stent placement (Chronic) Onset Date: 04/30/18 Z95.5 PCI-MEHRDAD-LAD 08/2014, [id number]-Sjom-Mid CX and Prox-Mid RCA 03/18/15, Thrombosis of CX stent 03/25/15. MEHRDAD to RCA (2.7 X 16 Promus Synergy) 04/30/2018 History of appendectomy Z90.49 Surgical History: - - Cardiac stent August 2014 Psychiatric History: Anxiety, Depression Lives: Spouse/ Significant Other Smoking Status: Current every day smoker Tobacco Use: Cigarettes Drugs: Marijuana - *Family History Paternal Family History: Family History (Last Reviewed 12/05/18 @ 02:39 by Benjamin Cerna MD) Mother CAD (coronary artery disease) Diabetes Hypertension Myocardial infarction Father CAD (coronary artery disease) Diabetes Hypertension Myocardial infarction Brother Hypertension History Items: Diabetes, High Cholesterol, Heart Disease, Hypertension Maternal Family History: Family History (Last Reviewed 12/05/18 @ 02:39 by Benjamin Cerna MD) Mother CAD (coronary artery disease) Diabetes Hypertension Myocardial infarction Father CAD (coronary artery disease) Diabetes Hypertension Myocardial infarction Brother Hypertension History Items: Diabetes, High Cholesterol, Heart Disease, Hypertension Review of Systems Constitutional: Denies: Chills, Fever, Weight Change HEENT: Denies: Head Aches, Sinus Congestion, Sinus Drainage Cardiovascular: Reports: Chest Pain - soreness of chest from ICD, Palpitations Respiratory: Reports: Shortness of Breath. Denies: Cough Gastrointestinal: Denies: Abdominal Pain, Nausea, Vomiting Genitourinary: Denies: Dysuria Musculoskeletal: Denies: Joint Pain, Joint Tenderness Skin: Denies: Rash, Wounds Neurological: Denies: Numbness, Tingling, Focal weakness Psychiatric: Denies: Anxiety, Depression, Homicidal Ideations, Suicidal Ideations Hematologic/ Lymphatic: Denies: Easy Bruising, Easy Bleeding VTE Information - Inpt Only VTE Present on Admission: No VTE Mechan Device Prophylaxis: None VTE Pharm Prophylaxis ordered?: No Reason prophylaxis not ordered:: Treatment Not Indicated - Received therapeutic dose of Lovenox at the ED secondary to cardiac disease. Patient Problems: Active and Suspected Problems (Last Reviewed 12/05/18 @ 02:39 by Benjamin Cerna MD) ICD (implantable cardioverter-defibrillator) discharge (Acute) - Physical Exam General: Oriented x3, Cooperative, Lethargic HEENT: Atraumatic, PERRLA, EOMI, Normocephalic Neck: Supple, No JVD, Negative Carotid Bruits Lungs: Diminished, Tachypneic Cardiovascular: No murmurs, Tachycardic, - - Diminished heart sounds Abdomen: Bowel Sounds Present, Soft, Non Tender Extremities: No edema, Capillary Refill Less than 3 Seconds Skin: No rashes, No breakdown Musculoskeletal: No Tenderness to Palpation of Joints or Extremities Neurological: Cranial nerves II-XII grossly intact Psych/Mental Status: Normal Affect, Appropriate Vital Signs Temp Pulse Resp BP Pulse Ox 98.5 F 101 H 20 H 137/101 H 100 12/04/18 23:27 12/05/18 01:00 12/05/18 01:00 12/05/18 01:00 12/05/18 01:00 Oxygen Flow Rate (L/min) 2 Oxygen Delivery Method Nasal Cannula Weight: 94.6 kg Body Mass Index (BMI) 28.3 Finger Stick Blood Glucose 123 Laboratory Tests Past 24 Hrs 12/04/18 12/04/18 23:37 23:37 WBC 9.0 RBC 4.46 L Hgb 13.6 Hct 40.0 MCV 89.7 MCH 30.5 MCHC 34.0 RDW Std Deviation 45.3 H RDW Coeff of Brandi 13.7 Plt Count 219 MPV 9.2 Immature Gran % (Auto) 0.200 Neut % (Auto) 65.9 Lymph % (Auto) 24.4 [place] % (Auto) 7.2 Eos % (Auto) 2.1 Baso % (Auto) 0.2 Absolute Neuts (auto) 5.9 Absolute Lymphs (auto) 2.20 Nucleated RBC % 0 Sodium 142 Potassium 3.3 L Chloride 107 Carbon Dioxide 27.0 Anion Gap 8 BUN 15 Creatinine 1.07 Estim Creat Clear Calc 99.72 Est GFR (MDRD) Af Amer 98 Est GFR (MDRD) Non-Af 81 BUN/Creatinine Ratio 14.0 Glucose 112 H Calcium 8.8 Magnesium 1.8 Troponin I 0.022 Assessment/Plan All Active Problems (Last Reviewed 12/05/18 @ 02:39 by Benjamin Cerna MD) ICD (implantable cardioverter-defibrillator) discharge (Acute) Chest pain (Acute) The patient is a 43 year old M with a significant history of CAD status post drug-eluting stent; previous cocaine use ischemic cardiomyopathy (ejection fraction of 15% ; and stage III diastolic dysfunction on surface echo on 07/07/2017) tobacco abuse; and marijuana abuse who presented because his subcutaneous ICD gave him 3 shocks.. Implantable cardioverter-defibrillator discharge Emergency department doctor reportedly discussed the case with avionics safety inspector, Dr. Cabrera. Per that conversation if pacemaker can be interrogated patient can be admitted at the hospital. Pacemaker cannot be interrogated then patient to be transferred to [facility]. Per recommendation of nursing team pacemaker will be interrogated on 12-05-2018 6 AM at the hospital so patient was admitted. Also per conversation between emergency department doctor and avionics safety inspector patient was given therapeutic dose of Lovenox and was started on amiodarone IV. Continue amiodarone IV. Discussed the emergency department doctor to replace potassium p.o. Will order for the potassium IV. Will optimize magnesium to at least 2 bites by giving 2 g of magnesium. EKG shows sinus tachycardia with probable left atrial enlargement; incomplete right bundle branch block and Q waves in V4 to V6. Ischemic cardiomyopathy Review of old records on 07/07/2018 patient had a surface echo that showed a ventricular thrombus in the apex; ejection fraction of 50%; stage III diastolic dysfunction; moderate to severe tricuspid valve insufficiency; moderate pulmonary hypertension; moderately enlarged left atrium; mild eccentric mitral valve insufficiency. Continue guideline directed medical therapy of aspirin; Plavix; coreg; spironolactone and losartan Lasix continued Diabetes mellitus On presentation his glucose is 112. Patient kept n.p.o. by cardiology recommendation. Will check his blood glucose every 4 hours. Would hold home insulin for now. Hold home metformin since it is too early in his admission. DVT prophylaxis Not indicated since patient received therapeutic dose of Lovenox in the emergency department. Code Visit Inpatient E&M: 91098 Init Hosp L3
--- NOTE | 2018-12-05 01:16 | NURSING ---
CALLED [employer] AND THEY WILL SEND OUT PAGE AT 6AM TO HAVE A PERSON CALL US FOR INTEREGATION
[2018-12-05] MEDS: Enoxaparin 100 MG/ML Syringe 90 MG SC (02:22)
--- NOTE | 2018-12-05 03:18 | EKG12_ITS ---
Test Reason : CP ADMISSION Blood Pressure : / mmHG Vent. Rate : 092 BPM Atrial Rate : 092 BPM P-R Int : 172 ms QRS Dur : 110 ms QT Int : 382 ms P-R-T Axes : 051 -74 077 degrees QTc Int : 472 ms Normal sinus rhythm Possible Left atrial enlargement Incomplete right bundle branch block Left anterior fascicular block Possible Anterior-lateral infarct, age undetermined Abnormal ECG Confirmed by KATRINA MCKEON, SAMANTHA ([id number]), newspaper managing editor EDELMIRA RIVAS ([id number]) on 12/07/2018 9:14:21 AM Referred By: Benjamin Cerna Confirmed By:SAMANTHA HERNDON MD
--- NOTE | 2018-12-05 03:21 | ED.DCSUM_ITS ---
- ER Visit Summary Date of Service: 12/05/18 Chief Complaint: Defibrillator firing History of Present Illness: The patient is a 43 M presenting after defibrillator fired. Patient states he was wrestling and horsing around and he became short of breath. He did not have chest pain. His defibrillator then fired 3 times. He had no chest pain following this. Patient has a history of cardiomyopathy and has a subcutaneous ICD. He has multiple stents. His last cardiac cath was in March 2018. He had an echo June 2018 which showed EF 15%. He is a smoker. Physical Examination: Vitals are stable. Heart rate 107. Patient is afebrile. Alert no acute distress. HEENT exam is unremarkable. Neck is supple. Lungs are clear and equal bilaterally. Heart is regular and tachycardic Abdomen is soft nontender nondistended. Extremities are unremarkable. Skin is warm and diaphoretic Remainder of exam is unremarkable. Emergency Department Course and Treatment: Patient was given aspirin on arrival. EKG is sinus tachycardia rate of 105. Chest x-ray shows chronic-appearing right lower lobe infiltrate slightly more apparent than August 05, 2018. Defibrillator overlying the right side of the heart. CBC unremarkable. Chemistries show potassium 3.3, glucose 112. Magnesium 1.8. Troponin 0.022. Discussed with Dr. Cabrera. Patient will be admitted to the hospitalist service. He will have defibrillator interrogation tomorrow. [employer] was notified and will interrogate his defibrillator in the morning. He was given Lovenox subcutaneously and amiodarone IV. Discussed with the hospitalist for admission. Disposition: Admission Impression: Defibrillator firing, history of cardiomyopathy This note was generated with [email or web address] dictation software. It may contain incorrect words, spelling, and punctuation that were not noted in review of the chart prior to signing ED Disposition - Plan for ED Patient: Disposition: Acute Care [facility]
[2018-12-05 03:46] LABS: Bedside Glucose 303 mg/dL (70-110)
[2018-12-05] MEDS: Potassium Chloride 10mEq/100mL 10 MEQ/100 ML IV.SOLN. 100 MEQ IV BOLUS ×3 (04:05→06:12)
[2018-12-05 06:28] LABS: Anion Gap 9 (5-15); BUN 16 mg/dL (7-18); BUN/Creat Ratio 15.8 RATIO (10-20); Calcium,Total 8.4 mg/dL (8.5-10.1); Chloride 106 mmol/L (98-107); Creatinine, Serum 1.01 mg/dL (0.70-1.30); EST Glomerular Filtration Rate 86 mL/min (>60); Est Glom Filt Rate - Afr Amer 105 mL/min (>60); Estimated Creatinine Clearance 105.64 ml/min; Glucose 244 mg/dL (74-106); Potassium 4.4 mmol/L (3.5-5.1); Sodium Level 137 mmol/L (136-145)
[2018-12-05 06:50] LABS: Bedside Glucose 238 mg/dL (70-110)
--- NOTE | 2018-12-05 08:39 | PCM.CONS.C ---
Problem List (1) ICD (implantable cardioverter-defibrillator) discharge Status: Acute (2) CAD (coronary artery disease) Status: Chronic Qualifiers: Coronary Disease-Associated Artery/Lesion type: [place] artery [place] vs. transplanted heart: [place] heart (3) History of coronary artery stent placement Status: Chronic Comment: PCI-MEHRDAD-LAD 08/2014, THP-JYI-Ymga-Mid CX and Prox-Mid RCA 03/18/15, Thrombosis of CX stent 03/25/15. MEHRDAD to RCA (2.7 X 16 Promus Synergy) 04/30/2018 (4) Ischemic cardiomyopathy Status: Chronic Comment: EF 20% per echo 08/08/2016 (5) Chronic systolic CHF (congestive heart failure) Status: Chronic (6) Left ventricular thrombus Status: Chronic (7) Hyperlipidemia Status: Chronic Qualifiers: (8) Hypertension Status: Chronic Qualifiers: (9) Type 2 diabetes mellitus Status: Chronic Qualifiers: Diabetes mellitus [facility] insulin use: with [facility] use Diabetes mellitus complication status: with neurologic complications Diabetes mellitus complication detail: with polyneuropathy Qualified Code(s): E11.42 - Type 2 diabetes mellitus with diabetic polyneuropathy; 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 He apparently has had ICD discharge in October of this year which he did not report. Yesterday evening while he was horsing around which on further evaluation he states was attempting to have sexual intercourse, he became short of breath and dyspneic and subsequently noted his ICD discharge 3 times. He does not recall chest discomfort. He does not recall any obvious palpitations. He does not recall any loss of consciousness. He presented to the emergency department for further evaluation. According to the emergency department physician staff he was reported as being diaphoretic appearing. He underwent laboratory studies which demonstrated an indeterminate troponin I level. His ECG had demonstrated findings compatible with sinus rhythm with left axis deviation with possible left atrial enlargement with an incomplete right bundle branch block pattern and a left anterior fascicular block pattern with a possible anterior lateral MS pattern of indeterminate age with no significant change compared to previous ECGs, a chest x-ray ported a chronic right lower lobe infiltrate and an ICD in place. He does have a subcutaneous ICD placed in June 2017 at [facility]. He states he has been taking his medications but has not Outpatient cardiovascular follow-up or ICD follow-up. Today he states that he still feels somewhat short of breath but has had no other acute symptoms. His ICD was interrogated earlier this morning by the [employer] risk control field representative. It appears that he has had 6 ICD discharges over time. To the best of the technicians interpretation it appears that his ICD has discharged inappropriately due to low amplitude complexes as opposed to any type of underlying cardiac dysrhythmia. Thus the ICD fresh foods technician was going to contact his high school learning support teacher with respect to further adjustments of the ICD to minimize inappropriate discharges. The patient has gone on to have additional troponin I levels performed. They have remained indeterminate. He has also had repeat ECGs that have demonstrated no significant changes. [] Past Medical History Allergies/Adverse Reactions: Allergies No Known Allergies Allergy (Verified 11/28/18 13:46) Home Medications: Ambulatory Orders Medication Instructions Recorded Carvedilol 6.25 mg PO BID #60 tab 08/07/18 Losartan Potassium [Cozaar] 25 mg PO DAILY #30 tab 08/07/18 Potassium Chloride [K-Tab ER] 20 meq PO DAILY #30 tablet.er 08/07/18 Spironolactone 25 mg PO DAILY #30 tab 08/07/18 Senna [Senokot] 2 tab PO QHS PRN PRN 08/18/18 Magnesium Oxide [Mag-Ox 400] 400 mg PO BIDCM #120 tab 09/19/18 blood sugar diagnostic strips See Dose Instructions .ROUTE 10/03/18 .MEDSUPPLY #50 ea blood-glucose meter kit See Dose Instructions .ROUTE 10/03/18 .MEDSUPPLY #1 ea clopidogrel 75 mg tablet 75 mg PO DAILY #90 tab 10/03/18 escitalopram 5 mg tablet 5 mg PO DAILY #90 tab 10/03/18 lancets 28 gauge See Dose Instructions .ROUTE 10/03/18 .MEDSUPPLY #50 ea nitroglycerin 0.4 mg sublingual 0.4 mg SUBLINGUAL Q5M PRN #6 tab 10/03/18 tablet furosemide 40 mg tablet 40 mg PO BID tab 10/05/18 insulin aspart (U-100) 100 unit/mL See Protocol SUBCUT ACHS PRN ml 10/05/18 (3 mL) subcutaneous pen metformin ER 1,000 mg 24 hr 1,000 mg PO QPM #90 tab 10/05/18 tablet,extended release acetaminophen 325 mg tablet 650 mg PO BID PRN #90 tab 11/02/18 aspirin 81 mg tablet,delayed 81 mg PO TID #90 tab 11/02/18 release pen needle, diabetic 31 gauge x See Rx Instructions .ROUTE 11/02/1809/13 .MEDSUPPLY #100 ea albuterol sulfate 2.5 mg/3 mL 2.5 mg INHALATION Q2H PRN PRN #90 11/28/18 (0.083 %) solution for nebulization ml albuterol sulfate HFA 90 1 puff INHALATION Q6H PRN PRN #8.5 11/28/18 mcg/actuation aerosol inhaler g gabapentin 300 mg capsule 300 mg PO BID #60 cap 11/28/18 insulin glargine (U-100) 100 34 unit SC DAILY #15 ml 11/28/18 unit/mL (3 mL) subcutaneous pen atorvastatin 40 mg tablet 40 mg PO DAILY #30 tab 12/04/18 Past Medical History (Chronic Problems): Chronic Problems (Last Reviewed 12/05/18 @ 05:09 by Benjamin Cerna MD) Peripheral neuropathy (Chronic) Depression with anxiety (Chronic) Noncompliance (Chronic) Left ventricular thrombus (Chronic) Acute exacerbation of CHF (congestive heart failure) (Chronic) CAD (coronary artery disease) (Chronic) Severe left ventricular systolic dysfunction (Chronic) Polysubstance abuse (Chronic) marijuana, cocaine 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/28/17) SICD per Dr Berry @ [facility] Nicotine dependence (Chronic) Old myocardial infarction (Chronic) Hypertension (Chronic) History of coronary artery stent placement (Chronic 04/30/18) PCI-MEHRDAD-LAD 08/2014, NGB-AGC-[place]-Mid CX and Prox-Mid RCA 03/18/15, Thrombosis of CX stent 03/25/15. MEHRDAD to RCA (2.7 X 16 Promus Synergy) 04/30/2018 Atherosclerosis of coronary artery of [place] heart without angina pectoris (Chronic) PCI-MEHRDAD-LAD 08/2014, TEO-SEA-Kpnf-Mid CX and Prox-Mid RCA 03/18/15, Thrombosis of CX stent 03/25/15 Ischemic cardiomyopathy (Chronic) EF 20% per echo 08/08/2016 Hyperlipidemia (Chronic) Type 2 diabetes mellitus (Chronic) Chronic systolic CHF (congestive heart failure) (Chronic) Surgical History: - - Cardiac stent August 2014 Psychiatric History: Anxiety, Depression - *Family History Paternal Family History: Family History (Last Reviewed 12/05/18 @ 02:39 by Benjamin Cerna MD) Mother CAD (coronary artery disease) Diabetes Hypertension Myocardial infarction Father CAD (coronary artery disease) Diabetes Hypertension Myocardial infarction Brother Hypertension History Items: Diabetes, High Cholesterol, Heart Disease, Hypertension Maternal Family History: Family History (Last Reviewed 12/05/18 @ 02:39 by Benjamin Cerna MD) Mother CAD (coronary artery disease) Diabetes Hypertension Myocardial infarction Father CAD (coronary artery disease) Diabetes Hypertension Myocardial infarction Brother Hypertension History Items: Diabetes, High Cholesterol, Heart Disease, Hypertension Lives: Spouse/ Significant Other Smoking Status: Current every day smoker Tobacco Use: Cigarettes Drugs: Marijuana Review of Systems - Review of Systems General: Denies: Fever, Night Sweats, Fatigue Cardiovascular: Reports: Shortness of Breath, Shortness of Breath at Rest, Shortness of Breath with Exertion. Denies: Chest Discomfort, Orthopnea, PND, Palpitations, Lightheadedness, Dizziness, Near Syncope, Syncope Respiratory: Reports: Shortness of Breath. Denies: Cough, Sputum Production, Hemoptysis Gastrointestinal: Denies: Hematemesis, Hematochezia, Melena Genitourinary: Denies: Dysuria, Hematuria Skin: Denies: Rash Subjectve: This is a 43-year-old -[place]ian male who appears to be resting comfortably at the moment in no acute distress. Objective: Vital Signs Temp Pulse Resp BP Pulse Ox 97.8 F 98 23 H 100/86 H 99 12/05/18 04:16 12/05/18 08:00 12/05/18 06:00 12/05/18 06:00 12/05/18 07:25 Oxygen Flow Rate (L/min) 2 Oxygen Delivery Method Nasal Cannula Weight: 203 lb 0.732 oz Body Mass Index (BMI) 27.7 Finger Stick Blood Glucose 123 Intake and Output for Last 24 Hours 12/03/18 12/04/18 12/05/18 23:59 23:59 23:59 Intake Total 340.3 / 340.3 Output Total 300 / 300 Balance 40.3 / 40.3 General: Awake, Alert, Oriented x 3, Cooperative, No Acute Distress HEENT: Atraumatic, Normocephalic, PERRL, EOMI, Sclera Non Icteric Oral: Moist Mucosa Neck: Supple, Good ROM, No JVD Lungs: Clear to auscultation Cardiovascular: Regular Rhythm, Normal S1, Normal S2 Vascular: No Carotid Bruits Abdomen: Bowel Sounds Present, Soft, Non Tender Extremities: Trace RLE Edema, Trace LLE Edema Psych/Mental Status: Flat Affect 12/04/18 23:37: WBC 9.0, RBC 4.46 L, Hgb 13.6, Hct 40.0, MCV 89.7, MCH 30.5, MCHC 34.0, Plt Count 219, MPV 9.2, Immature Gran % (Auto) 0.200, Neut % (Auto) 65.9, Lymph % (Auto) 24.4, Bath % (Auto) 7.2, Eos % (Auto) 2.1, Baso % (Auto) 0.2, Absolute Neuts (auto) 5.9, Nucleated RBC % 0 12/04/18 23:37: Sodium 142, Potassium 3.3 L, Chloride 107, Carbon Dioxide 27.0, Anion Gap 8, BUN 15, Creatinine 1.07, Est GFR (MDRD) Af Amer 98, Est GFR (MDRD) Non-Af 81, BUN/Creatinine Ratio 14.0, Glucose 112 H, Calcium 8.8, Magnesium 1.8, Troponin I 0.022 12/05/18 03:08: Troponin I 0.021 12/05/18 05:30: Sodium 137, Potassium 4.4, Chloride 106, Carbon Dioxide 22.0, Anion Gap 9, BUN 16, Creatinine 1.01, Est GFR (MDRD) Af Amer 105, Est GFR (MDRD) Non-Af 86, BUN/Creatinine Ratio 15.8, Glucose 244 H, Calcium 8.4 L, Troponin I < 0.015 Rhythm: Sinus rhythm as noted above EKG: ECHO: 07-07-18: Left ventricle with left ventricular regional wall motion abnormalities with reported LVEF of 15%; decreased diastolic compliance; moderate left atrial enlargement; mild MR; moderately severe TR; estimated RV systolic pressure of 65 mmHg Stress Test: 05/31/2018: Stress echocardiogram: Interpretation: Considered negative for stress-induced myocardial ischemia Cardiac Cath: 04-30-18 CORONARY ANGIOGRAPHY DOMINANCE: Right Dominant LEFT HEART ASSESSMENT Left Ventricular Ejection Fraction: by LV Gram 15 % Anterior Hypokinesis - Severe. Apical Hypokinesis - Severe. Inferior Basal Hypokinesis - Severe. Inferior Mid Akinesis Elevated Left Ventricular End Diastolic Pressure LVEDP: 39 mmHg LEFT MAIN: Angiographically normal LEFT ANTERIOR DECENDING ARTERY: Mild luminal irregularities MID LAD: Previously placed stent is patent CIRCUMFLEX ARTERY: PROX CIRC: is occluded OM 1: Mid - Fills late, faintly, and partially from left to left collateral flow RIGHT CORONARY ARTERY: Mild luminal irregularities MID RCA: Previously placed stent is patent RIGHT AV SEGMENT: Eccentric: 85 % Stenosis VALVE FINDINGS: Normal Aortic Valve function Normal Mitral Valve function AORTIC ROOT: Angiographically normal PCI: 04-30-18 3DRC Guide catheter was inserted and engaged into the RCA. BMW Guide wire was advanced to the RCA. Synergy 2.75x16 Drug Eluting stent was inserted. Angiogram performed post stent deployment. NC Emerge 3.00x12 Balloon catheter was inserted. PTCA balloon inflated at 14 atms for 20 secs. Angiogram performed post balloon dilatation. The arterial sheath was pulled and a TR Band was applied for hemostasis w/ 16ml air INTERVENTION INFORMATION Lesion Complexity: Non-High/Non-C, chronic total occlusion: No, lesion at bifurcation: No, thrombus present: No, lesion length: 8mm mm, culprit lesion: Yes, In-stent restenosis: No Pre Stenosis: 80 % Pre intervention SHARA flow: 3 PROCEDURE: Drug Eluting Stent with post dilatation Post Stenosis: 0 % Post intervention SHARA flow: 3 Lesion Devices: Cordis 6 Fr 3DRC 100cm Guide Catheter Nick .014 BMW Conneaut Straight 190cm Noel Sci Synergy MR MEHRDAD 2.75x16 Noel Sci NC EMERGE MR 3.00x12 BALLOON LESION SITE: RPL (1st) CXR: As noted above Assessment/Plan 1. ICD discharge The patient's ICD has been interrogated. Based upon the interrogation information from the [employer] risk control field representative it appears the patient's ICD did not discharge secondary to atrial or ventricular dysrhythmias but due to a concern with sensing of his underlying [place] cardiac rhythm. The fresh foods technician is making an attempt to adjust the patient's ICD settings to minimize inappropriate discharges. 2. CAD status post PCI The patient has a history of CAD and PCI. He has had exertional shortness of breath/dyspnea. His troponin I levels have been indeterminant which is unclear whether it is related to underlying CAD and stress-induced myocardial ischemia and/or component of his ICD discharges. At the present time there is concern as to patient having a form of stress-induced angina pectoris equivalent with his exertional shortness of breath/dyspnea. He should continue to be monitored. A follow-up echocardiogram can be obtained to reassess his left ventricular wall motion and overall systolic function. However it was felt reasonable based upon the patient's extensive cardiovascular history, and his symptoms since his most recent PCI and subsequent follow-up stress test, that he be considered for reevaluation in the cardiac catheterization laboratory. In the interim he will continue medical therapy as deemed appropriate. 3. Ischemic mediated cardiomyopathy The patient does have a history of diminished LV systolic function as noted above. He will need to continue medical management. He will need to be considered for further noninvasive and invasive studies as deemed appropriate. 4. Chronic systolic CHF The patient appears to be without acute symptoms at this time. He will need continued medical management. 5. Left ventricular thrombus The patient does have a history of a left ventricular thrombus. He has not been anticoagulated based upon his concerns of noncompliance and polysubstance abuse. This can be reassessed with a follow-up transthoracic echocardiogram. 6. Hyperlipidemia The patient can continue medical management. 7. Hypertension Patient's blood pressure can be followed and medications can be continued. 8. Diabetes mellitus The patient will continue evaluation care per internal medicine. 9. Noncompliance The patient has a history of noncompliance. He states he has been compliant with his cardiovascular medications. He does admit to not having continued outpatient cardiovascular follow-up and ICD interrogations as previously requested. 10. Polysubstance abuse The patient does have a history of polysubstance abuse. Comment: The patient's case has been discussed and reviewed with the patient, the [employer] risk control field representative, the [facility] emergency department staff, and the patient's primary waste specialist Dr. Ramirez. This note was generated using a voice recognition system and there may be incorrect words, spelling or punctuation that were not noted when reviewing the office note prior to saving.
[2018-12-05] MEDS: Escitalopram Oxalate 10 MG Tablet 5 MG PO (08:52)
[2018-12-05] MEDS: Carvedilol 6.25 MG Tablet PO ×2 (08:52→17:03)
[2018-12-05] MEDS: Clopidogrel Bisulfate 75 MG Tablet PO (08:52)
[2018-12-05] MEDS: Aspirin E.C. 81 MG Tablet PO ×3 (08:52→17:03)
[2018-12-05] MEDS: Spironolactone 25 MG Tablet PO (08:53)
[2018-12-05] MEDS: Gabapentin 300 MG Capsule PO ×2 (08:53→17:04)
[2018-12-05] MEDS: Losartan Potassium 25 MG Tablet PO (08:53)
[2018-12-05] MEDS: Furosemide 40 MG Tablet PO ×2 (08:53→17:03)
[2018-12-05] MEDS: Magnesium Oxide 400 MG Tablet PO ×2 (08:53→17:04)
--- NOTE | 2018-12-05 09:06 | ECHOCS_ITS ---
Reason For Study: CAD/ASHD Procedure This was a 2D Doppler, Color Flow transthoracic echocardiogram. Contrast injection was performed. Tecnically difficult, echo was done with patient sitting up. Patient also had a hard time staying still for testing. The study was technically difficult. Exam performed portable in patient room. Left Ventricle Mildly dilated left ventricle. Moderate concentric left ventricular hypertrophy. Mid cavitary false tendon noted. Severe segmental systolic dysfunction (see wall motion). The estimated ejection fraction is 10 %. Unable to assess diastolic dysfunction. Anterio-Basal: Akinetic. Lateral-Basal: Akinetic. Posterior-Basal: Akinetic. Infero-Basal: Hypokinetic. Basal inferoseptal: Hypokinetic. Basal anteroseptal: Hypokinetic. Mid-Anterior : Akinetic. Mid-Lateral : Akinetic. Mid-Posterior: Akinetic. Mid-Inferior: Hypokinetic. Mid-inferoseptal : Hypokinetic. Mid-anteroseptal : Akinetic. Anterior Rutherford : Akinetic. Inferior [place]utherford : Akinetic. Lateral [place]uther[place] : Hypokinetic. Septal [place]utherford : Hypokinetic. Right Ventricle Mildly dilated right ventricle. Mild global right ventricular systolic dysfunction. Atria The left atrium is moderately enlarged. The right atrium is mildly enlarged. No doppler evidence for ASD. Mitral Valve There is no mitral annular calcification. Mild papillary muscle dysfunction of the mitral valve. Moderate (2+) mitral valve insufficiency. Tricuspid Valve Normal tricuspid valve. Moderate (2+) tricuspid valve insufficiency. Right ventricular systolic pressure estimated to be 54 mmHg. Aortic Valve Trisinus/trileaflet aortic valve. Mild focal aortic valve calcification. Pulmonic Valve The pulmonic valve is not well visualized. Great Vessels Normal sized aortic root. Pericardium/Pleural Trivial pericardial effusion. There are no echocardiographic indications of cardiac tamponade. Medication Diluted definity 3ml given slow IV push to enhance endocardial definition. MMode/2D Measurements & Calculations LVIDd: 5.8 cm IVSd: 1.6 cm LA dimension: 5.1 cm LVIDs: 5.2 cm LVPWd: 1.4 cm FS: 10.4 % LAV(MOD-bp): 162.6 ml LA A4 area: 36.9 cm2 LAV(MOD-bp) Indexed: 75.9 ml/m2 LAV(MOD-sp2): 154.0 ml LAV(MOD-sp4): 148.2 ml Time Measurements MV dec time: 0.15 sec Doppler Measurements & Calculations MV E max marcelina: 71.7 cm/sec Ao V2 max: 84.2 cm/sec LV V1 max: 48.4 cm/sec MV A max marcelina: 29.8 cm/sec Ao max P.8 mmHg LV V1 max P.94 mmHg MV E/A: 2.4 PA V2 max: 56.3 cm/sec TR max marcelina: 338.4 cm/sec TR max P.8 mmHg Interpretation Summary The study was technically difficult. Contrast injection was performed. Mildly dilated left ventricle. Severe segmental systolic dysfunction (see wall motion). The estimated ejection fraction is 10 %. Moderate concentric left ventricular hypertrophy. Mid cavitary false tendon noted. Mildly dilated right ventricle. Mild global right ventricular systolic dysfunction. The left atrium is moderately enlarged. The right atrium is mildly enlarged. Mild papillary muscle dysfunction of the mitral valve. Moderate (2+) mitral valve insufficiency. Moderate (2+) tricuspid valve insufficiency. Mild focal aortic valve calcification. Trivial pericardial effusion. There are no echocardiographic indications of cardiac tamponade. Right ventricular systolic pressure estimated to be 54 mmHg. Unable to assess diastolic dysfunction. Based upon the 2D echocardiographic and contrast enhanced images obtained a left ventricular thrombus does not appear to be visualized at this time. Ordering Physician: Boaz Cabrera Referring Physician: Benjamin Cerna Performed By: George Morton RCS
--- NOTE | 2018-12-05 09:36 | CASEMGMT ---
According to the [facility] website, the following are in-network tertiary facilities: [facility], [facility], [facility], [facility], [facility], [facility], [facility], [facility], and . [place] TEJEDA CM
--- NOTE | 2018-12-05 10:27 | CL.D_ITS ---
Patient Name: JEANETTE HUTCHINSON Study Date: 12/05/2018 Performing: Faisal Ramirez MD Ht: 72.04 inches 183 cm : 1975 Wt: 202.83 lbs 92 kg Age: 43 Gender: male BSA: 2.14 PROCEDURE(S) PERFORMED OS96-VDH/COR CLINICAL PROFILE AND INDICATIONS Indications: Cardiomyopathy, Other; AICD discharge Heart Failure: NYHA Class: 2, Newly Diagnosed: No, Heart Failure Type: Systolic Stress/Imaging Stress/Image Study Performed: No Angina Classification Anginal Classification w/in 2 Weeks: No symptoms CAD Presentations: Other: AICD discharge Comorbidities/Risk Factors: Current/Recent Smoker (< 1year) Hypertension Dyslipidemia Prior CHF Prior PCI CONCLUSIONS Non obstructive coronary arteries Widely patent stents in LAD, RCA. Previously know occluded LCX stent. LV function not assessed out of concern for possible LV thrombus. RECOMMENDATIONS Interrogation of sub Q AICD indicated probable artifact as source of defibrillation therapy. Pt ant ed any previous angina recently. Pt has poor medical compliance and am concerned about giving anti-c oagulation meds. Management as per referring Membership Sales Advisor DESCRIPTION OF PROCEDURE The patient arrived to the procedure lab. The risks and benefits of the procedure as well as a full d escription of our services here and current unavailability of surgical backup were fully explained to the patient and/or their significant other prior to the catheterization. The Timeout was completed, verifying the correct patient and procedure. The patient's procedural site was prepped and draped in the usual fashion. Local anesthetic was given subcutaneously to right groin region with Lidocaine 2%. Using a modified Seldinger technique, arterial access was obtained via the right femoral artery, a 4 Fr sheath was inserted Left Coronary Artery selective angiography was performed in multiple views us ing a 4 Fr. JL5 catheter. Right Coronary Artery selective angiography was then performed in multiple views using a 4 Fr. 3DRC catheter.The arterial sheath was pulled and manual compression applied until hemostasis is achieved. CORONARY ANGIOGRAPHY DOMINANCE: Right Dominant LEFT HEART ASSESSMENT Left Ventricular Ejection Fraction: Not assessed LV wall motion not assessed LEFT MAIN: Angiographically normal CIRCUMFLEX ARTERY: is occluded RIGHT CORONARY ARTERY: PROX RCA: Previously placed stent is patent MID RCA: 50 % Stenosis, Previously placed stent is patent COMPLICATIONS No Complications PROCEDURE MEDICATIONS Oxygen: 2 L/min via nasal cannula SUMMARY OF HEMODYNAMIC DATA Time AIR REST ECG 09:39:53 AO 101/85 (93) SA 10:06:04 Signed By Faisal Ramirez MD On 12/05/2018 10:26:40 Faisal Ramirez MD
[2018-12-05 11:40] LABS: Amphetamine Urine VISTA POSITIVE (<1000 ng/mL); Barbiturate Urine VISTA NEGATIVE (< 200 ng/mL); Benzodiazepine Urine VISTA NEGATIVE (< 200 ng/mL); Cocaine Urine VISTA NEGATIVE (< 300 ng/mL); Ecstacy Urine VISTA POSITIVE (< 500 ng/mL); Methadone Urine VISTA NEGATIVE (< 300 ng/mL); PCP Urine VISTA NEGATIVE (< 25 ng/mL); THC Urine VISTA POSITIVE (< 50 ng/mL); Vista UDS pH Range 5
--- NOTE | 2018-12-05 12:10 | CASEMGMT ---
ILEANA GUAJARDO assessment: Face to Face with patient for initial transition planning/care coordination assessment. ILEANA GUAJARDO introduced self and role at [facility], pt voices understanding and consents to assessment at this time. Pt is lying in bed drifting in and out of sleep during assessment. Pt does answer some questions when awakes and also requests more pain meds. Pt is A/Ox4 at this time. Pt's sig other is at bedside and answers most questions for pt at this time. Care providers, pharmacy, and demographics verified at this time. PCP: Ezequiel per sig other pt did f/u with PCP a couple weeks ago Specialists: Pt states no current specialists. Preferred Pharmacy: [facility] Insurance: amBX Prescription Benefit: amBX Living Will/HPOA: Pt states does not have LW/HPOA and pt declines info at this time. LNOK: palak Plascencia other Living Arrangements: Per sig other, pt lives with her in a mobile home and she states no concerns at home at this time. Pt is independent with ADL's. Transportation: Pt does not but sig other does and she states no transportation concerns at this time. DME/HHC: Pt has and uses nebulizer at home. Pt states no need for any further DME at this time. Pt has no hx of HHC or SNF in the past. Pt/sig other states no concerns with pt going home at time of discharge. Pt is currently unemployed and per sig other, 'is trying to get on disability.' Pt does smoke 3-5cigarettes daily and does smoke marijuana daily. Per sig other, pt does drink ETOH occasionally and pt states has not used cocaine 'since last visit, but I touch it.' Pt did previously have CM thru Medicaid, Rosita, but sig other is unsure if he is still active with her. Pt/sig other voice no further questions/concerns/needs at this time. CM to follow for any further discharge planning/needs. Advised pt to ask for CM if any further questions/concerns/needs arise, voices understanding. Pt Goal: Home Plan: [place] ILEANA GUAJARDO
[2018-12-05] MEDS: Acetaminophen 325 MG Tablet 650 MG PO (12:20)
--- NOTE | 2018-12-05 14:39 | PN_ITS ---
Patient Problems: Active and Suspected Problems (Last Reviewed 12/05/18 @ 05:09 by Benjamin Cerna MD) ICD (implantable cardioverter-defibrillator) discharge (Acute) Subjective: Patient admitted with ICD shock. ICD interrogation was done. ICD interrogation shows it is not because of atrial or ventricular dysrhythmia but secondary to sensing of negative cardiac rhythm which was adjusted per [employer] sales representative. Patient had cardiac cath by Dr. Ramirez. Discussed with Dr. Ramirez. Denies shortness of breath, chest pain but he has dyspnea on exertion. Vitals/I&O's: Vital Signs Temp Pulse Resp BP Pulse Ox 96 F L 90 14 124/99 H 100 12/05/18 14:00 12/05/18 14:00 12/05/18 14:00 12/05/18 14:00 12/05/18 14:00 Oxygen Flow Rate (L/min) 2 Oxygen Delivery Method Nasal Cannula Weight: 203 lb 0.732 oz Body Mass Index (BMI) 27.7 Finger Stick Blood Glucose 123 Intake and Output for Last 24 Hours 12/03/18 12/04/18 12/05/18 23:59 23:59 23:59 Intake Total 610.3 / 610.3 Output Total 900 / 900 Balance -289.7 / -289.7 General: Alert, Oriented x3, Cooperative HEENT: Atraumatic, PERRLA, EOMI, Normocephalic Neck: Supple, No JVD, Negative Carotid Bruits Lungs: Clear to auscultation, No rhonchi, No wheeze, No rales, Diminished Cardiovascular: Regular rate, Regular Rhythm, Normal S1, Normal S2, No murmurs Abdomen: Bowel Sounds Present, Soft, Non Tender, Non-Distended Extremities: No edema, Capillary Refill Less than 3 Seconds Skin: No rashes, No breakdown, - - Right femoral cardiac cath exit site. Musculoskeletal: No Tenderness to Palpation of Joints or Extremities, Arthritic Changes Neurological: Cranial nerves II-XII grossly intact Psych/Mental Status: Normal Affect, Appropriate Laboratory Results 12/04/18 23:37: WBC 9.0, RBC 4.46 L, Hgb 13.6, Hct 40.0, MCV 89.7, MCH 30.5, MCHC 34.0, RDW Std Deviation 45.3 H, RDW Coeff of Brandi 13.7, Plt Count 219, MPV 9.2, Immature Gran % (Auto) 0.200, Neut % (Auto) 65.9, Lymph % (Auto) 24.4, Trigg % (Auto) 7.2, Eos % (Auto) 2.1, Baso % (Auto) 0.2, Absolute Neuts (auto) 5.9, Absolute Lymphs (auto) 2.20, Nucleated RBC % 0 12/04/18 23:37: Sodium 142, Potassium 3.3 L, Chloride 107, Carbon Dioxide 27.0, Anion Gap 8, BUN 15, Creatinine 1.07, Estim Creat Clear Calc 99.72, Est GFR (MDRD) Af Amer 98, Est GFR (MDRD) Non-Af 81, BUN/Creatinine Ratio 14.0, Glucose 112 H, Calcium 8.8, Magnesium 1.8, Troponin I 0.022 12/05/18 03:08: Troponin I 0.021 12/05/18 03:41: POC Glucose 303 H 12/05/18 05:30: Sodium 137, Potassium 4.4, Chloride 106, Carbon Dioxide 22.0, Anion Gap 9, BUN 16, Creatinine 1.01, Estim Creat Clear Calc 105.64, Est GFR (MDRD) Af Amer 105, Est GFR (MDRD) Non-Af 86, BUN/Creatinine Ratio 15.8, Glucose 244 H, Calcium 8.4 L, Troponin I < 0.015 12/05/18 06:46: POC Glucose 238 H 12/05/18 11:16: Urine Opiates Screen NEGATIVE, Urine Methadone Screen NEGATIVE, Ur Barbiturates Screen NEGATIVE, Ur Phencyclidine Scrn NEGATIVE, Ur Amphetamines Screen POSITIVE H, U Methamphetamin-MDMA POSITIVE H, U Benzodiazepines Scrn NEGATIVE, Urine Cocaine Screen NEGATIVE, U Cannabinoids Screen POSITIVE H, Ur Drug Screen Comment Current Medications Acetaminophen (Tylenol) 650 mg PO Q6H PRN PRN PRN Reason: Mild pain 1-3/Temp > 100.7 F Last Admin: 12/05/18 12:20 Dose: 650 mg Documented by: Amiodarone HCl (Cordarone) 200 mg PO DAILY [facility] Aspirin (Ecotrin) 81 mg PO TIDCM [facility] Last Admin: 12/05/18 12:21 Dose: 81 mg Documented by: Atorvastatin Calcium (Lipitor) 40 mg PO DAILY@2200 [facility] ([facility]) [facility] Last Admin: 12/05/18 08:52 Dose: 6.25 mg Documented by: Clopidogrel Bisulfate (Plavix) 75 mg PO DAILY [facility] Last Admin: 12/05/18 08:52 Dose: 75 mg Documented by: Dextrose (D50w Syringe) 0 gm IV X1 PRN; Protocol PRN Reason: Hypoglycemia Escitalopram Oxalate (Lexapro) 5 mg PO DAILY [facility] Last Admin: 12/05/18 08:52 Dose: 5 mg Documented by: Furosemide (Lasix) 40 mg PO BIDLX [facility] Last Admin: 12/05/18 08:53 Dose: 40 mg Documented by: Gabapentin (Neurontin) [facility] Last Admin: 12/05/18 08:53 Dose: 300 mg Documented by: Glucagon () 1 mg IM .X1 PRN PRN Reason: Hypoglycemia Heparin Sodium (Beef Lung) (Heparin 500 Unit/5 Ml (100/Ml)) 500 unit IV UD PRN PRN Reason: HEPARIN FLUSH Sodium Chloride () 250 mls @ 15 mls/hr IV .[id number] PRN PRN Reason: SALINE FLUSH Amiodarone HCl 360 mg/ (Dextrose) 200 mls @ 16.667 mls/hr CONT INF .Q12H [facility] Stop: 12/06/18 02:59 Last Admin: 12/05/18 09:25 Dose: 16.667 mls/hr Documented by: Sodium Chloride () 1,000 mls @ 0 mls/hr IV .Q0M [facility] Labetalol HCl (Trandate) 5 mg IV X1 PRN PRN Reason: SBP > 160 prior to sheath pull Stop: 12/07/18 10:15 Losartan Potassium (Cozaar) 25 mg PO DAILY [facility] Last Admin: 12/05/18 08:53 Dose: 25 mg Documented by: Magnesium Oxide (Mag-Ox 400) [facility] Last Admin: 12/05/18 08:53 Dose: 400 mg Documented by: Ondansetron HCl (Zofran) 4 mg IV Q8H PRN PRN PRN Reason: NAUSEA/VOMITING Senna (Senokot) 2 tablet PO QHS PRN PRN PRN Reason: Constipation Sodium Chloride () 10 - 40 ml IV UD PRN PRN Reason: SALINE FLUSH Spironolactone (Aldactone) 25 mg PO DAILY [facility] Last Admin: 12/05/18 08:53 Dose: 25 mg Documented by: Medical Necessity - Tobacco Use Smoking Status: Current every day smoker Tobacco Use: Cigarettes Assessment/Plan All Active Problems (Last Reviewed 12/05/18 @ 05:09 by Benjamin Cerna MD) ICD (implantable cardioverter-defibrillator) discharge (Acute) Chest pain (Acute) There is a 43-year-old gentleman with history of coronary artery disease status post stent, substance abuse, cocaine use, ischemic cardiomyopathy EF 15% with a stage III diastolic dysfunction as per echo in June 2017 and marijuana use was admitted with ICD shock, 3 times. Patient also complained of palpitation and shortness of breath mainly dyspnea on exertion. Implantable cardioverter-defibrillator discharge, most likely ICD sensor to underlying cardiac rhythm but no dysrhythmia found on interrogation: Patient is being admitted in PCU. Had ICD interrogation today. It was found no atrial or ventricular dysrhythmia. Patient is on amiodarone drip and subsequently will be transition to oral amiodarone. Home medications including Coreg, baby aspirin, Plavix continued. Electrolytes within normal limit. K4.4, magnesium 1.8. KG shows sinus tachycardia with probable left atrial enlargement; incomplete right bundle branch block and Q waves in V4 to V6. 2. 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 U tox positive of amphetamine, methamphetamine and cannabinoids. 3. Coronary artery disease status post stents: Patient had cardiac cath secondary to history of dyspnea on exertion and AICD discharge: Cardiac cath reported nonobstructive coronary arteries, widely patent stent in LAD and RCA. Previously known occluded left circumflex. Mid RCA 50% stenosis. Patient did not had angioplasty or PCI. 4. Chronic combined heart failure: Echo on 07/07/2018 showed a ventricular thrombus 2.1 x 1.5 cm in the apex; ejection fraction of 15%; stage III diastolic dysfunction; moderate to severe tricuspid valve insufficiency; moderate pulmonary hypertension; moderately enlarged left atrium; mild eccentric mitral valve insufficiency. Cardiac appropriate guideline directed medications continued including Lasix and spironolactone. Lasix continued. Repeat echo was ordered. 5. Diabetes mellitus On presentation his glucose is 112. Accu-Chek before meals in addition his goal with NovoLog sliding scale. DVT prophylaxis: Resume anticoagulation Laboratory Results 12/04/18 23:37: WBC 9.0, RBC 4.46 L, Hgb 13.6, Hct 40.0, MCV 89.7, MCH 30.5, MCHC 34.0, RDW Std Deviation 45.3 H, RDW Coeff of Brandi 13.7, Plt Count 219, MPV 9.2, Immature Gran % (Auto) 0.200, Neut % (Auto) 65.9, Lymph % (Auto) 24.4, Trigg % (Auto) 7.2, Eos % (Auto) 2.1, Baso % (Auto) 0.2, Absolute Neuts (auto) 5.9, Absolute Lymphs (auto) 2.20, Nucleated RBC % 0 12/04/18 23:37: Sodium 142, Potassium 3.3 L, Chloride 107, Carbon Dioxide 27.0, Anion Gap 8, BUN 15, Creatinine 1.07, Estim Creat Clear Calc 99.72, Est GFR (MDRD) Af Amer 98, Est GFR (MDRD) Non-Af 81, BUN/Creatinine Ratio 14.0, Glucose 112 H, Calcium 8.8, Magnesium 1.8, Troponin I 0.022 12/05/18 03:08: Troponin I 0.021 12/05/18 03:41: POC Glucose 303 H 12/05/18 05:30: Sodium 137, Potassium 4.4, Chloride 106, Carbon Dioxide 22.0, Anion Gap 9, BUN 16, Creatinine 1.01, Estim Creat Clear Calc 105.64, Est GFR (MDRD) Af Amer 105, Est GFR (MDRD) Non-Af 86, BUN/Creatinine Ratio 15.8, Glucose 244 H, Calcium 8.4 L, Troponin I < 0.015 12/05/18 06:46: POC Glucose 238 H 12/05/18 11:16: Urine Opiates Screen NEGATIVE, Urine Methadone Screen NEGATIVE, Ur Barbiturates Screen NEGATIVE, Ur Phencyclidine Scrn NEGATIVE, Ur Amphetamines Screen POSITIVE H, U Methamphetamin-MDMA POSITIVE H, U Benzodiazepines Scrn NEGATIVE, Urine Cocaine Screen NEGATIVE, U Cannabinoids Screen POSITIVE H, Ur Drug Screen Comment after 24 hours of cardiac Active Medications Acetaminophen (Tylenol) 650 mg PO Q6H PRN PRN PRN Reason: Mild pain 1-3/Temp > 100.7 F Last Admin: 12/05/18 12:20 Dose: 650 mg Documented by: Amiodarone HCl (Cordarone) 200 mg PO DAILY [facility] Aspirin (Ecotrin) 81 mg PO TIDCM [facility] Last Admin: 12/05/18 12:21 Dose: 81 mg Documented by: Atorvastatin Calcium (Lipitor) 40 mg PO DAILY@2200 [facility] Carvedilol (Coreg) [facility] Last Admin: 12/05/18 08:52 Dose: 6.25 mg Documented by: Clopidogrel Bisulfate (Plavix) 75 mg PO DAILY [facility] Last Admin: 12/05/18 08:52 Dose: 75 mg Documented by: Dextrose (D50w Syringe) 0 gm IV X1 PRN; Protocol PRN Reason: Hypoglycemia Escitalopram Oxalate (Lexapro) 5 mg PO DAILY [facility] Last Admin: 12/05/18 08:52 Dose: 5 mg Documented by: Furosemide (Lasix) 40 mg PO BIDLX [facility] Last Admin: 12/05/18 08:53 Dose: 40 mg Documented by: Gabapentin (Neurontin) [facility] Last Admin: 12/05/18 08:53 Dose: 300 mg Documented by: Glucagon () 1 mg IM .X1 PRN PRN Reason: Hypoglycemia Heparin Sodium (Beef Lung) (Heparin 500 Unit/5 Ml (100/Ml)) 500 unit IV UD PRN PRN Reason: HEPARIN FLUSH Sodium Chloride () 250 mls @ 15 mls/hr IV .[id number] PRN PRN Reason: SALINE FLUSH Amiodarone HCl 360 mg/ (Dextrose) 200 mls @ 16.667 mls/hr CONT INF .Q12H [facility] Stop: 12/06/18 02:59 Last Admin: 12/05/18 09:25 Dose: 16.667 mls/hr Documented by: Sodium Chloride () 1,000 mls @ 0 mls/hr IV .Q0M [facility] Labetalol HCl (Trandate) 5 mg IV X1 PRN PRN Reason: SBP > 160 prior to sheath pull Stop: 12/07/18 10:15 Losartan Potassium (Cozaar) 25 mg PO DAILY [facility] Last Admin: 12/05/18 08:53 Dose: 25 mg Documented by: Magnesium Oxide (Mag-Ox 400) 400 mg PO BIDCM [facility] Last Admin: 12/05/18 08:53 Dose: 400 mg Documented by: Ondansetron HCl (Zofran) 4 mg IV Q8H PRN PRN PRN Reason: NAUSEA/VOMITING Senna (Senokot) 2 tablet PO QHS PRN PRN PRN Reason: Constipation Sodium Chloride () 10 - 40 ml IV UD PRN PRN Reason: SALINE FLUSH Spironolactone (Aldactone) 25 mg PO DAILY [facility] Last Admin: 12/05/18 08:53 Dose: 25 mg Documented by:
[2018-12-05 16:35] LABS: Bedside Glucose 340 mg/dL (70-110)
[2018-12-05] MEDS: Insulin Lispro 100 UNIT/ML INSULN.PEN SC ×2 (17:06→21:25)
[2018-12-05] MEDS: Atorvastatin Calcium 40 MG Tablet PO (21:25)
[2018-12-05 21:36] LABS: Bedside Glucose 224 mg/dL (70-110)
[2018-12-06] VITALS (10 sets, daily range): BP systolic 118–156; BP diastolic 82–116; PULSE 74–91; RESP 16–21; TEMP 36.6; O2SAT 92–99
[2018-12-06 05:57] LABS: Absolute Lymphocyte Count 2.61 X10^3/uL (0.83-4.51); Absolute Neutrophil Count 5.8 X10^3/uL (2.0-7.7); Basophil# 0.02 X10^3/uL; Basophil% 0.2 % (0-1); Eosinophil# 0.15 X10^3/uL; Eosinophils% 1.6 % (0-5); Hematocrit 44.6 % (40-54); Hemoglobin 14.9 g/dL (13.0-16.5); Lymphocyte # 2.61 X10^3/ul (4.0); Lymphocyte % 28.1 % (19-41); Mean Corp Hgb Conc 33.4 g/dL (32-36); Mean Corpuscular Hgb 30.6 pg (27.0-32.0); Mean Corpuscular Volume 91.6 fL (80-94); Mean Platelet Vol. 9.6 fl (6.2-12.0); Monocyte# 0.69 X10^3/uL; Monocyte% 7.4 % (0-10); NRBC Flagged by Analyzer 0 % (0-5); Neutrophil % 62.4 % (47-70); Platelet Count 187 K/mm3 (150-450); RBC Distribution Width CV 14.1 % (11.6-14.6); RBC Distribution Width SD 47.2 fl (35.1-43.9); Red Blood Count 4.87 M/mm3 (4.6-6.2); White Blood Count 9.3 K/mm3 (4.4-11.0)
[2018-12-06 06:23] LABS: Anion Gap 9 (5-15); BUN 18 mg/dL (7-18); BUN/Creat Ratio 17.6 RATIO (10-20); Calcium,Total 8.9 mg/dL (8.5-10.1); Chloride 106 mmol/L (98-107); Creatinine, Serum 1.02 mg/dL (0.70-1.30); EST Glomerular Filtration Rate 85 mL/min (>60); Est Glom Filt Rate - Afr Amer 103 mL/min (>60); Estimated Creatinine Clearance 104.61 ml/min; Glucose 135 mg/dL (74-106); Magnesium 2.1 mg/dL (1.6-2.6); Potassium 3.8 mmol/L (3.5-5.1); Sodium Level 141 mmol/L (136-145)
[2018-12-06 07:05] LABS: Bedside Glucose 146 mg/dL (70-110)
--- NOTE | 2018-12-06 08:50 | PN.CARD_ITS ---
Subjectve: Patient doing well. No 24-hour events. Telemetry shows normal sinus rhythm, no ventricular ectopy. Objective: Vital Signs Temp Pulse Resp BP Pulse Ox 97.9 F 74 18 137/116 H 92 12/06/18 03:00 12/06/18 07:08 12/06/18 04:00 12/06/18 04:00 12/06/18 07:28 Oxygen Flow Rate (L/min) 2 Oxygen Delivery Method Room Air Weight: 205 lb 14.588 oz Body Mass Index (BMI) 27.7 Finger Stick Blood Glucose 123 Intake and Output for Last 24 Hours 12/04/18 12/05/18 12/06/18 23:59 23:59 23:59 Intake Total 1284.3 / 1284.3 65.8 / 65.8 Output Total 1600 / 1600 225 / 225 Balance -315.7 / -315.7 -159.2 / -159.2 General: Awake, Alert, Oriented x 3 HEENT: PERRL, EOMI, Sclera Non Icteric Neck: Supple, Good ROM, No Lymph Node Enlargement Lungs: Clear to auscultation Cardiovascular: Regular Rhythm, Normal S1, Normal S2, No Murmurs, No Rubs, No Gallops Vascular: No Carotid Bruits, Normal Femoral Pulses, Normal Radial Pulses, Normal Dorsalis Pedal Pulse, Normal Posterior Tibial Pulses Abdomen: Bowel Sounds Present, Soft, Non Tender, No HSM, No Organomegaly Extremities: No Cyanosis, No Clubbing, No edema Neurological: No Focal Motor or Sensory Deficit 12/06/18 05:35: WBC 9.3, RBC 4.87, Hgb 14.9, Hct 44.6, MCV 91.6, MCH 30.6, MCHC 33.4, Plt Count 187, MPV 9.6, Immature Gran % (Auto) 0.300, Neut % (Auto) 62.4, Lymph % (Auto) 28.1, [place] % (Auto) 7.4, Eos % (Auto) 1.6, Baso % (Auto) 0.2, A bsolute Neuts (auto) 5.8, Nucleated RBC % 0 12/06/18 05:35: Sodium 141, Potassium 3.8, Chloride 106, Carbon Dioxide 26.0, Anion Gap 9, BUN 18, Creatinine 1.02, Est GFR (MDRD) Af Amer 103, Est GFR (MDRD) Non-Af 85, BUN/Creatinine Ratio 17.6, Glucose 135 H, Calcium 8.9, Magnesium 2.1 Rhythm: EKG: ECHO: Stress Test: Cardiac Cath: PCI: CT Surgery: Holter monitor: EPS: PPM: CXR: Chest CT Scan: Medical Necessity - Tobacco Use Smoking Status: Current every day smoker Tobacco Use: Cigarettes Assessment/Plan 1. AICD discharge: It appears by interrogation the patient may have had an inappropriate AICD discharge due to motion artifact. Nonetheless he underwent repeat catheterization to re-assess his coronary anatomy. He was found to have an occluded left circumflex stent which is old, widely patent LAD stents, and widely patent RCA stents. There was at most a 50% eccentric stenosis in his mid RCA upstream from his previously placed stent in March 2018. No intervention was recommended or performed at this time. Recommend the patient continue on dual at the platelet therapy. I would not recommend anticoagulation therapy given the patient's noncompliance in the past. His subcutaneous defibrillator parameters have been adjusted to hopefully decrease the chance of inappropriate shocks in the future. 2. Ischemic cardia myopathy: The patient has had several AICD shocks in the la st month or so, some of which appear to be an appropriate. Nonetheless he is a set up for arrhythmias and would recommend starting him on amiodarone 200 mg p.o. daily in order to prevent additional shocks in the future. We will repeat his EKG in 1 week's time. 3. Patient will be discharged home and follow-up with Dr. Ramirez going forward. Thank you very much for the opportunity to participate in the cardiac care of your patient. Code Visit Inpatient E&M: 39576 Subs Hosp L2
--- NOTE | 2018-12-06 08:52 | PCM.DC ---
- Discharge Diagnoses Current Active Problems: Current Active and Chronic Problems (Last Reviewed 12/05/18 @ 05:09 by Benjamin Cerna MD) ICD (implantable cardioverter-defibrillator) discharge (Acute) You will use the following diet at home:: Calorie/Carbohydrate Controlled (specify 1200, 1400, etc), Cardiac Discharge Activity: May Not Drive, May not drive while taking narcotic pain medications. Weight Bearing Status: Weight bearing as tolerated Call your doctor if you observe: Fever of 101 or Higher, Inability to urinate, Inability to have a bowel movement, Shortness of breath, Dizziness, Fainting spells, Swelling in the ankles, Chest pain, Increased palpitations (irregular heartbeat), Calf discomfort, Uncontrolled pain Allergies/Adverse Reactions: Allergies No Known Allergies Allergy (Verified 11/28/18 13:46) Medications to take at Discharge Carvedilol 6.25 mg PO BID #60 tab 08/07/18 Losartan Potassium [Cozaar] 25 mg PO DAILY #30 tab 08/07/18 Potassium Chloride [K-Tab ER] 20 meq PO DAILY #30 tablet.er 08/07/18 Spironolactone 25 mg PO DAILY #30 tab 08/07/18 Senna [Senokot] 2 tab PO QHS PRN PRN 08/18/18 Magnesium Oxide [Mag-Ox 400] 400 mg PO BIDCM #120 tab 09/19/18 blood sugar diagnostic strips See Dose Instructions .ROUTE .MEDSUPPLY #50 ea 10/03/18 blood-glucose meter kit See Dose Instructions .ROUTE .MEDSUPPLY #1 ea 10/03/18 clopidogrel 75 mg tablet 75 mg PO DAILY #90 tab 10/03/18 lancets 28 gauge See Dose Instructions .ROUTE .MEDSUPPLY #50 ea 10/03/18 nitroglycerin 0.4 mg sublingual tablet 0.4 mg SUBLINGUAL Q5M PRN #6 tab 10/03/18 furosemide 40 mg tablet 40 mg PO BID tab 10/05/18 metformin ER 1,000 mg 24 hr tablet,extended release 1,000 mg PO QPM #90 tab 10/05/18 acetaminophen 325 mg tablet 650 mg PO BID PRN #90 tab 11/02/18 aspirin 81 mg tablet,delayed release 81 mg PO TID #90 tab 11/02/18 pen needle, diabetic 31 gauge x 5/16 See Rx Instructions .ROUTE .MEDSUPPLY #100 ea 11/02/18 albuterol sulfate 2.5 mg/3 mL (0.083 %) solution for nebulization 2.5 mg INHALATION Q2H PRN PRN #90 ml 11/28/18 albuterol sulfate HFA 90 mcg/actuation aerosol inhaler 1 puff INHALATION Q6H PRN PRN #8.5 g 11/28/18 gabapentin 300 mg capsule 300 mg PO BID #60 cap 11/28/18 insulin glargine (U-100) 100 unit/mL (3 mL) subcutaneous pen 34 unit SC DAILY #15 ml 11/28/18 atorvastatin 40 mg tablet 40 mg PO DAILY #30 tab 12/04/18 Amiodarone HCl [Cordarone] 200 mg PO DAILY #30 tab 12/06/18 Insulin Aspart [Novolog Flexpen] See Protocol SUBCUT ACHS PRN #0 ml 12/06/18 The following prescriptions were given: Amiodarone HCl [Cordarone] 200 mg PO DAILY #30 tab Transmission Status: Pending to [facility] Primary Care Physician: Tammie Nieves MD [Primary Care Provider] - Please follow up with your Primary Care Physician in: in 1-2 weeks Test Results: Test results from this visit will be discussed in further detail at your follow-up appointment, if applicable. Please Follow Up With: Faisal Ramirez MD When: in 3-4 weeks
--- NOTE | 2018-12-06 08:54 | DS.PCM_ITS ---
Discharge Date and Diagnosis Date of Admission: 12/05/18 Date of Discharge: 12/06/18 - Primary Discharge Diagnosis Active and Suspected Problems (Last Reviewed 12/05/18 @ 05:09 by Benjamin Cerna MD) ICD (implantable cardioverter-defibrillator) discharge (Acute) - Secondary Discharge Diagnosis Chronic Problems (Last Reviewed 12/05/18 @ 05:09 by Benjamin Cerna MD) Peripheral neuropathy (Chronic) Depression with anxiety (Chronic) Noncompliance (Chronic) Left ventricular thrombus (Chronic) Acute exacerbation of CHF (congestive heart failure) (Chronic) CAD (coronary artery disease) (Chronic) Severe left ventricular systolic dysfunction (Chronic) Polysubstance abuse (Chronic) marijuana, cocaine 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 MEHRDAD to RCA (2.7 X 16 Promus Synergy) 04/30/2018 Atherosclerosis of coronary artery of [place] heart without angina pectoris (Chronic) PCI-MEHRDAD-LAD 08/2014, EEM-CNX-Xgis-Mid CX and Prox-Mid RCA 03/18/15, Thrombosis of CX stent 03/25/15 Ischemic cardiomyopathy (Chronic) EF 20% per echo 08/08/2016 Hyperlipidemia (Chronic) Type 2 diabetes mellitus (Chronic) Chronic systolic CHF (congestive heart failure) (Chronic) Hospital Course and Treatment Operations: None Summary of Care Provided: [] There is a 43-year-old gentleman with history of coronary artery disease status post stent, substance abuse, cocaine use, ischemic cardiomyopathy EF 15% with a stage III diastolic dysfunction as per echo in June 2017 and marijuana use was admitted with ICD shock, 3 times. Patient also complained of palpitation and shortness of breath mainly dyspnea on exertion. Implantable cardioverter-defibrillator discharge, most likely ICD sensor to underlying cardiac rhythm but no dysrhythmia found on interrogation: Patient is being admitted in PCU. Had ICD interrogation today. It was found no atrial or ventricular dysrhythmia. Patient is on amiodarone drip and subsequently will be transition to oral amiodarone. Home medications including Coreg, baby aspirin, Plavix continued. Electrolytes within normal limit. K4.4, magnesium 1.8. KG shows sinus tachycardia with probable left atrial enlargement; incomplete right bundle branch block and Q waves in V4 to V6. Patient is discharged on amiodarone. Heart rate 91. Blood pressure 138/116. 2. Chronic systolic and diastolic combined heart failure, ischemic cardiomyopathy with history of cocaine/substance use and uncontrolled hypertension: Patient denies any recent cocaine and meth/amphetamines use but takes marijuana. U tox positive of amphetamine, methamphetamine and cannabinoids. Patient was advised to stop cocaine, methamphetamine. Discharged on Lasix 40 mg twice daily and losartan and spironolactone. Titrate up the dose of losartan and outpatient. 3. Coronary artery disease status post stents: Patient had cardiac cath secondary to history of dyspnea on exertion and AICD discharge: Cardiac cath reported nonobstructive coronary arteries, widely patent stent in LAD and RCA. Previously known occluded left circumflex. Mid RCA 50% stenosis. Patient did not had angioplasty or PCI. 4. Chronic combined heart failure: Echo on 07/07/2018 showed a ventricular thrombus 2.1 x 1.5 cm in the apex; ejection fraction of 15%; stage III diastolic dysfunction; moderate to severe tricuspid valve insufficiency; moderate pulmonary hypertension; moderately enlarged left atrium; mild eccentric mitral valve insufficiency. Cardiac appropriate guideline directed medications continued including Lasix and spironolactone. Lasix continued. Repeat echo was ordered. 5. Diabetes mellitus On presentation his glucose is 112. Accu-Chek before meals in addition his goal with NovoLog sliding scale. Patient was given a prescription of Lantus insulin and Humalog insulin. DVT prophylaxis: On anticoagulation Discharge medication reconciliation done. Discharge follow-up instructions completed. Discharge process discussed with the patient and all questions were answered to patient's satisfaction. Follow-up with Dr. Ramirez. Total time spent, exact 35 minutes on discharge meds reconciliation, examination, review of imaging and blood test and discussion with the patient on follow-up instructions. Subjective: Patient sitting in the chair. IV overdrawn transition to oral amiodarone overnight. Patient did not had any significant atrial or ventricular dysrhythmia. Normal sinus rhythm. - Physical Exam General: Alert, Oriented x3, Cooperative HEENT: Atraumatic, PERRLA, EOMI, Normocephalic Neck: Supple, No JVD, Negative Carotid Bruits Lungs: Clear to auscultation, Normal air movement, No rhonchi, No wheeze, No rales Cardiovascular: Regular rate, Regular Rhythm, Normal S1, Normal S2, No murmurs, - - AICD Abdomen: Bowel Sounds Present, Soft, Non Tender, Non-Distended Extremities: No edema, Capillary Refill Less than 3 Seconds Skin: No rashes, No breakdown, - - Right groin femoral catheter access site: No hematoma Musculoskeletal: No Tenderness to Palpation of Joints or Extremities Neurological: Cranial nerves II-XII grossly intact, Deep Tendon Reflexes 2+/4 and Symmetrical, Neuro grossly intact, Motor Exam 5/5 strength throughout Psych/Mental Status: Normal Affect, Appropriate Vital Signs Temp Pulse Resp BP Pulse Ox 97.9 F 74 18 137/116 H 92 12/06/18 03:00 12/06/18 07:08 12/06/18 04:00 12/06/18 04:00 12/06/18 07:28 Oxygen Flow Rate (L/min) 2 Oxygen Delivery Method Room Air Weight: 205 lb 14.588 oz Body Mass Index (BMI) 27.7 Finger Stick Blood Glucose 123 Intake and Output for Last 24 Hours 12/04/18 12/05/18 12/06/18 23:59 23:59 23:59 Intake Total 1284.3 / 1284.3 65.8 / 65.8 Output Total 1600 / 1600 225 / 225 Balance -315.7 / -315.7 -159.2 / -159.2 Laboratory Tests Past 24 Hrs 12/05/18 12/06/18 12/06/18 11:16 05:35 05:35 WBC 9.3 RBC 4.87 Hgb 14.9 Hct 44.6 MCV 91.6 MCH 30.6 MCHC 33.4 RDW Std Deviation 47.2 H RDW Coeff of Brandi 14.1 Plt Count 187 MPV 9.6 Immature Gran % (Auto) 0.300 Neut % (Auto) 62.4 Lymph % (Auto) 28.1 Ada % (Auto) 7.4 Eos % (Auto) 1.6 Baso % (Auto) 0.2 Absolute Neuts (auto) 5.8 Absolute Lymphs (auto) 2.61 Nucleated RBC % 0 Sodium 141 Potassium 3.8 Chloride 106 Carbon Dioxide 26.0 Anion Gap 9 BUN 18 Creatinine 1.02 Estim Creat Clear Calc 104.61 Est GFR (MDRD) Af Amer 103 Est GFR (MDRD) Non-Af 85 BUN/Creatinine Ratio 17.6 Glucose 135 H Calcium 8.9 Magnesium 2.1 Urine Opiates Screen NEGATIVE Urine Methadone Screen NEGATIVE Ur Barbiturates Screen NEGATIVE Ur Phencyclidine Scrn NEGATIVE Ur Amphetamines Screen POSITIVE H U Methamphetamin-MDMA POSITIVE H U Benzodiazepines Scrn NEGATIVE Urine Cocaine Screen NEGATIVE U Cannabinoids Screen POSITIVE H Ur Drug Screen Comment POC Glucose 12/06/18 12/05/18 12/05/18 06:54 21:24 16:27 POC Glucose 146 H 224 H 340 H Discharge Activity: May Not Drive, May not drive while taking narcotic pain medications. Weight Bearing Status: Weight bearing as tolerated Call your doctor if you observe: Fever of 101 or Higher, Inability to urinate, Inability to have a bowel movement, Shortness of breath, Dizziness, Fainting spells, Swelling in the ankles, Chest pain, Increased palpitations (irregular heartbeat), Calf discomfort, Uncontrolled pain Home Medications: Medications to take at Discharge Carvedilol 6.25 mg PO BID #60 tab 08/07/18 Losartan Potassium [Cozaar] 25 mg PO DAILY #30 tab 08/07/18 Potassium Chloride [K-Tab ER] 20 meq PO DAILY #30 tablet.er 08/07/18 Spironolactone 25 mg PO DAILY #30 tab 08/07/18 Senna [Senokot] 2 tab PO QHS PRN PRN 08/18/18 Magnesium Oxide [Mag-Ox 400] 400 mg PO BIDCM #120 tab 09/19/18 blood sugar diagnostic strips See Dose Instructions .ROUTE .MEDSUPPLY #50 ea 10/03/18 blood-glucose meter kit See Dose Instructions .ROUTE .MEDSUPPLY #1 ea 10/03/18 clopidogrel 75 mg tablet 75 mg PO DAILY #90 tab 10/03/18 lancets 28 gauge See Dose Instructions .ROUTE .MEDSUPPLY #50 ea 10/03/18 nitroglycerin 0.4 mg sublingual tablet 0.4 mg SUBLINGUAL Q5M PRN #6 tab 10/03/18 furosemide 40 mg tablet 40 mg PO BID tab 10/05/18 metformin ER 1,000 mg 24 hr tablet,extended release 1,000 mg PO QPM #90 tab 10/05/18 acetaminophen 325 mg tablet 650 mg PO BID PRN #90 tab 11/02/18 aspirin 81 mg tablet,delayed release 81 mg PO TID #90 tab 11/02/18 pen needle, diabetic 31 gauge x 5/16 See Rx Instructions .ROUTE .MEDSUPPLY #100 ea 11/02/18 albuterol sulfate 2.5 mg/3 mL (0.083 %) solution for nebulization 2.5 mg INHALATION Q2H PRN PRN #90 ml 11/28/18 albuterol sulfate HFA 90 mcg/actuation aerosol inhaler 1 puff INHALATION Q6H PRN PRN #8.5 g 11/28/18 gabapentin 300 mg capsule 300 mg PO BID #60 cap 11/28/18 atorvastatin 40 mg tablet 40 mg PO DAILY #30 tab 12/04/18 Amiodarone HCl [Cordarone] 200 mg PO DAILY #30 tab 12/06/18 Insulin Glargine,Hum.rec.anlog [Basaglar Kwikpen U-100] 34 unit SUBCUT DAILY #15 ml 12/06/18 Insulin Lispro [Humalog KwikPen] See Protocol SUBCUT ACHS #1 insuln.pen 12/06/18 Following Prescrptions Were Given to Patient: Insulin Glargine,Hum.rec.anlog [Basaglar Kwikpen U-100] 34 unit SUBCUT DAILY #15 ml Transmission Status: Received by [facility] [place] Amiodarone HCl [Cordarone] 200 mg PO DAILY #30 tab Transmission Status: Received by [facility] [place] [facility] Insulin Lispro [Humalog KwikPen] See Protocol SUBCUT ACHS #1 insuln.pen Transmission Status: Received by [facility] [place] [facility] Primary Care Physician: Tammie Nieves MD [Primary Care Provider] - Please follow up with your Primary Care Physician in: in 1-2 weeks Please Follow Up With: Faisal Ramirez MD When: in 3-4 weeks Medical Necessity - Tobacco Use Smoking Status: Current every day smoker Tobacco Use: Cigarettes Meaningful Use Info Meaningful Use Diagnoses (Choose all that apply): None applicable Code Visit Inpatient E&M: [address] [facility]
[2018-12-06] MEDS: Amiodarone 200 MG Tablet PO (09:09)
[2018-12-06] MEDS: Losartan Potassium 25 MG Tablet PO (09:09)
[2018-12-06] MEDS: Aspirin E.C. 81 MG Tablet PO (09:09)
[2018-12-06] MEDS: Magnesium Oxide 400 MG Tablet PO (09:09)
[2018-12-06] MEDS: Furosemide 40 MG Tablet PO (09:09)
[2018-12-06] MEDS: Gabapentin 300 MG Capsule PO (09:09)
[2018-12-06] MEDS: Spironolactone 25 MG Tablet PO (09:09)
[2018-12-06] MEDS: Clopidogrel Bisulfate 75 MG Tablet PO (09:09)
[2018-12-06] MEDS: Carvedilol 6.25 MG Tablet PO (09:10)
--- NOTE | 2018-12-07 16:33 | CASEMGMT ---
RN CM Discharge Follow-up Phone Call: ANETA: Yelena Strata: 4 Call Date: 12/07/18 Discharge Date: 12/06/18 Time of Call: 1634 Duration: 0 ? Admitting Diagnosis: AICD firing Discharge follow-up call attempted by this RN CM. Voicemail message received and message requesting a return call left.
== END 2018-12-06 10:03 | disposition home or self-care (01) | DRG 192 ==
LOC: ED 23:56 → PCU 12-05 02:26
PROVIDERS: Admitting Provider Hospitalist; Emergency Provider Emergency Medicine; Family Provider Internal Medicine; PCP Internal Medicine; Referring Provider Hospitalist; Visit Provider Internal Medicine
DX: Z45.02 Encounter for adjustment and management of automatic implantable cardiac defibrillator (principal); I25.5 Ischemic cardiomyopathy; I25.10 Atherosclerotic heart disease of native coronary artery without angina pectoris; E11.9 Type 2 diabetes mellitus without complications; I50.42 Chronic combined systolic (congestive) and diastolic (congestive) heart failure; I11.0 Hypertensive heart disease with heart failure; F17.210 Nicotine dependence, cigarettes, uncomplicated; I51.3 Intracardiac thrombosis, not elsewhere classified; F41.8 Other specified anxiety disorders; Z95.810 Presence of automatic (implantable) cardiac defibrillator; Z95.5 Presence of coronary angioplasty implant and graft; Z79.4 Long term (current) use of insulin; E78.5 Hyperlipidemia, unspecified; F12.10 Cannabis abuse, uncomplicated
CPT/HCPCS: 36415; 71045; 80048; 80307; 82962; 83735; 84484; 85025; 93005; 93306; 93454; 99285; 99406; J7040; Q9957; Q9967; A4216; C1769; C1894; C8929

== ENCOUNTER 2019-01-02 06:20 | Emergency (ER) | payer MEDICAID, SELFPAY ==
[2018-04-30 13:15] VITALS: BMI 25.9
[2018-12-27 13:50] VITALS: BMI 28.7
[2019-01-02 06:21] VITALS: BP 123/85; PULSE 82; RESP 18; TEMP 36.6; O2SAT 98; BMI 28.5
--- NOTE | 2019-01-02 06:58 | RAD_ITS ---
STUDY: X-RAY - RIGHT HAND REASON FOR EXAM: Pain, soft tissue swelling. TECHNIQUE: 3 view(s) of the hand. COMPARISON: Radiographs 04/09/2017. FINDINGS: Normal radiocarpal articulation. Normal distal radioulnar joint. Normal visualized carpal bones. Normal carpal articulations Normal carpometacarpal articulation of the thumb. Normal second through fifth carpometacarpal joints. There is chronic healed fracture deformity of the proximal fifth metacarpal. Normal metacarpophalangeal joint of the thumb. Normal interphalangeal joint of the thumb. Normal proximal and distal phalanges of the thumb. Normal metacarpophalangeal joints of the second through fifth fingers. Normal proximal and distal interphalangeal joints of the second through fifth fingers. Normal phalanges of the second through fifth fingers. The soft tissue structures are unremarkable. RAD/Hand Min 3 Views IMPRESSION: Chronic healed fracture deformity of the proximal fifth metacarpal. Electronically Signed: Orville Randolph MD at 8:41 EDT Tel , Service support ,
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
[2019-01-02] MEDS: Acetaminophen 500 MG Tablet 1000 MG PO (07:11)
--- NOTE | 2019-01-02 07:35 | ED.RN ---
UPON MEDICATING PATIENT, HE IS DIAPHORETIC AND SOMEWHAT LETHARGIC BUT AROUSES TO VOICE. PT'S BGL 242 MG/DL.
[2019-01-02 07:36] LABS: Bedside Glucose 242 mg/dL (70-110)
[2019-01-02 08:28] VITALS: PULSE 78; RESP 16; O2SAT 99
== END 2019-01-02 08:29 | disposition home or self-care (01) ==
PROVIDERS: Emergency Provider Emergency Medicine; Family Provider Internal Medicine; PCP Internal Medicine
DX: S60.221A Contusion of right hand, initial encounter (principal); E78.5 Hyperlipidemia, unspecified; E11.9 Type 2 diabetes mellitus without complications; I11.0 Hypertensive heart disease with heart failure; I50.9 Heart failure, unspecified; I25.5 Ischemic cardiomyopathy; Z79.82 Long term (current) use of aspirin; Z79.4 Long term (current) use of insulin; Z79.899 Other long term (current) drug therapy; F17.200 Nicotine dependence, unspecified, uncomplicated; Y04.2XXA Assault by strike against or bumped into by another person, initial encounter; Y93.89 Activity, other specified; Y92.89 Other specified places as the place of occurrence of the external cause; Y99.8 Other external cause status
CPT/HCPCS: 73130; 82962; 99283

== ENCOUNTER → 2019-06-11 | Outpatient (CLI) | payer MEDICAID, SELFPAY ==
[2019-02-18 08:41] VITALS: BMI 25.9
[2019-06-11 10:40] VITALS: BMI 28.5
--- NOTE | 2019-06-11 10:56 | RAD_ITS ---
STUDY: X-RAY - LEFT KNEE REASON FOR EXAM: Male, 43 years old. LEFT KNEE CONTUSION TECHNIQUE: 4 view(s) of the knee. COMPARISON: None. FINDINGS: Normal visualized distal femur. There is evidence of old Troy -Schlatter disease. Normal proximal tibiofibular articulation. Normal medial femorotibial compartment. Normal lateral femorotibial compartment. Normal patellofemoral articulation. The soft tissue structures are unremarkable. 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 Electronically Signed: Nishant Masterson, at 11:43 EST , Service support ,
== END | disposition home or self-care (01) ==
LOC: HPRAD 10:56
PROVIDERS: PCP Internal Medicine; Referring Provider Physician Assistant Surgical; Visit Provider Physician Assistant Surgical
DX: S80.02XA Contusion of left knee, initial encounter (principal)
CPT/HCPCS: 73564

== ENCOUNTER → 2019-11-15 | Outpatient (CLI) | payer MEDICAID, SELFPAY ==
[2019-02-18 08:41] VITALS: BMI 25.9
[2019-11-15 14:02] VITALS: BMI 28.5
[2019-11-15 17:15] LABS: Absolute Lymphocyte Count 3.05 X10^3/uL (0.83-4.51); Basophil# 0.03 X10^3/uL; Basophil% 0.3 % (0-1); Eosinophil# 0.38 X10^3/uL; Eosinophils% 4.2 % (0-5); Hematocrit 44.7 % (40-54); Hemoglobin 15.6 g/dL (13.0-16.5); Lymphocyte # 3.05 X10^3/ul (4.0); Lymphocyte % 33.7 % (19-41); Mean Corp Hgb Conc 34.9 g/dL (32-36); Mean Corpuscular Hgb 31.5 pg (27.0-32.0); Mean Corpuscular Volume 90.1 fL (80-94); Mean Platelet Vol. 10.5 fl (6.2-12.0); Monocyte# 0.53 X10^3/uL; Monocyte% 5.8 % (0-10); NRBC Flagged by Analyzer 0 % (0-5); Neutrophil # 5.04 X10^3/uL (2.7-7.7); Neutrophil % 55.7 % (47-70); Platelet Count 260 K/mm3 (150-450); RBC Distribution Width SD 38.7 fl (35.1-43.9); Red Blood Count 4.96 M/mm3 (4.6-6.2); White Blood Count 9.1 K/mm3 (4.4-11.0)
[2019-11-15 17:21] LABS: ALB/GLOB Ratio 0.9 RATIO (0.9-2.4); AST(SGOT) 14 U/L (15-37); Alanine Aminotransfer ALT/SGPT 35 U/L (16-61); Albumin, Serum 3.8 g/dL (3.2-5.0); Alkaline Phosphatase 105 U/L (45-117); Anion Gap 4 (5-15); BUN 11 mg/dL (7-18); BUN/Creat Ratio 9.7 RATIO (10-20); Calcium,Total 8.8 mg/dL (8.5-10.1); Chloride 97 mmol/L (98-107); Cholesterol 146 mg/dL (200); Creatinine, Serum 1.13 mg/dL (0.70-1.30); EST Glomerular Filtration Rate 76 mL/min (>60); Est Glom Filt Rate - Afr Amer 91 mL/min (>60); Globulin 4.3 g/dL (2.2-4.2); Glucose 300 mg/dL (74-106); High Density Lipoprotein 51 mg/dL; Potassium 3.8 mmol/L (3.5-5.1); Protein, Total 8.1 g/dL (6.4-8.2); Sodium Level 131 mmol/L (136-145); Triglycerides 131 mg/dL; Very Low Density Lipoprotein 26 mg/dL (5-40)
== END | disposition home or self-care (01) ==
LOC: BIMLAB 14:44
PROVIDERS: PCP Internal Medicine; Referring Provider Internal Medicine; Visit Provider Internal Medicine
DX: E11.9 Type 2 diabetes mellitus without complications (principal); E78.5 Hyperlipidemia, unspecified; I10 Essential (primary) hypertension
CPT/HCPCS: 36415; 80053; 80061; 85025

== ENCOUNTER → 2020-03-06 09:41 | Outpatient (CLI) | payer MEDICAID, SELFPAY ==
[2020-02-05 10:32] VITALS: BMI 25.9
[2020-03-06 08:54] VITALS: BMI 26.9
[2020-03-06 12:17] LABS: Hemoglobin A1c 12.6 % (3.8-5.6)
[2020-03-06 12:47] LABS: ALB/GLOB Ratio 0.8 RATIO (0.9-2.4); AST(SGOT) 452 U/L (15-37); Alanine Aminotransfer ALT/SGPT 828 U/L (16-61); Albumin, Serum 3.5 g/dL (3.2-5.0); Alkaline Phosphatase 209 U/L (45-117); Anion Gap 8 (5-15); BUN 12 mg/dL (7-18); BUN/Creat Ratio 9.8 RATIO (10-20); Calcium,Total 8.4 mg/dL (8.5-10.1); Chloride 94 mmol/L (98-107); Creatinine, Serum 1.23 mg/dL (0.70-1.30); EST Glomerular Filtration Rate 68 mL/min (>60); Est Glom Filt Rate - Afr Amer 83 mL/min (>60); Globulin 4.4 g/dL (2.2-4.2); Glucose 571 mg/dL (74-106); Microalbumin,Random Urine 14.8 mg/L (NO RANGE EST.); Microalbumin:Creatinine Ratio 52.3 mg/g CRE (<30 mg/g CRE); Potassium 4.1 mmol/L (3.5-5.1); Protein, Total 7.9 g/dL (6.4-8.2); Sodium Level 130 mmol/L (136-145)
[2020-03-06 13:04] LABS: Amphetamine Urine VISTA POSITIVE (<1000 ng/mL); Barbiturate Urine VISTA NEGATIVE (< 200 ng/mL); Benzodiazepine Urine VISTA NEGATIVE (< 200 ng/mL); Cocaine Urine VISTA NEGATIVE (< 300 ng/mL); Ecstacy Urine VISTA NEGATIVE (< 500 ng/mL); Methadone Urine VISTA NEGATIVE (< 300 ng/mL); PCP Urine VISTA NEGATIVE (< 25 ng/mL); THC Urine VISTA POSITIVE (< 50 ng/mL); Vista UDS pH Range 6
== END ==
PROVIDERS: PCP Internal Medicine; Referring Provider Internal Medicine; Visit Provider Internal Medicine
DX: E11.9 Type 2 diabetes mellitus without complications (principal); F19.10 Other psychoactive substance abuse, uncomplicated
CPT/HCPCS: 36415; 80053; 80307; 82043; 82570; 83036

== ENCOUNTER → 2020-04-10 09:35 | Outpatient (CLI) | payer MEDICAID, SELFPAY ==
[2020-02-05 10:32] VITALS: BMI 25.9
[2020-04-10 09:06] VITALS: BMI 27.9
[2020-04-10 12:11] LABS: Amphetamine Urine VISTA POSITIVE (<1000 ng/mL); Barbiturate Urine VISTA NEGATIVE (< 200 ng/mL); Benzodiazepine Urine VISTA NEGATIVE (< 200 ng/mL); Cocaine Urine VISTA POSITIVE (< 300 ng/mL); Ecstacy Urine VISTA NEGATIVE (< 500 ng/mL); Methadone Urine VISTA NEGATIVE (< 300 ng/mL); PCP Urine VISTA NEGATIVE (< 25 ng/mL); THC Urine VISTA POSITIVE (< 50 ng/mL); Vista UDS pH Range 5
[2020-04-10 12:18] LABS: Microalbumin,Random Urine 35.2 mg/L (NO RANGE EST.); Microalbumin:Creatinine Ratio 74.1 mg/g CRE (<30 mg/g CRE)
[2020-04-10 12:27] LABS: ALB/GLOB Ratio 0.8 RATIO (0.9-2.4); AST(SGOT) 129 U/L (15-37); Alanine Aminotransfer ALT/SGPT 275 U/L (16-61); Albumin, Serum 3.6 g/dL (3.2-5.0); Alkaline Phosphatase 150 U/L (45-117); Anion Gap 4 (5-15); BUN 12 mg/dL (7-18); BUN/Creat Ratio 10.3 RATIO (10-20); Calcium,Total 8.6 mg/dL (8.5-10.1); Chloride 96 mmol/L (98-107); Creatinine, Serum 1.16 mg/dL (0.70-1.30); EST Glomerular Filtration Rate 73 mL/min (>60); Est Glom Filt Rate - Afr Amer 89 mL/min (>60); Globulin 4.4 g/dL (2.2-4.2); Glucose 465 mg/dL (74-106); Potassium 4.3 mmol/L (3.5-5.1); Sodium Level 130 mmol/L (136-145)
[2020-04-10 15:34] LABS: Hepatitis B Surface Antigen Preliminary Reactive (Nonreactive); Hepatitis C Antibody Non-Reactive (Nonreactive)
[2020-04-10 17:10] LABS: HIV - WCH Non-Reactive (Nonreactive)
== END ==
PROVIDERS: PCP Internal Medicine; Referring Provider Nurse Practitioner Family; Visit Provider Nurse Practitioner Family
DX: E11.9 Type 2 diabetes mellitus without complications (principal); E78.5 Hyperlipidemia, unspecified; I10 Essential (primary) hypertension; R79.89 Other specified abnormal findings of blood chemistry; F19.10 Other psychoactive substance abuse, uncomplicated
CPT/HCPCS: 36415; 80053; 80307; 82043; 82570; 86703; 86803; 87340

== ENCOUNTER 2020-06-12 09:39 | Emergency (ER) | payer MEDICAID, SELFPAY ==
[2020-04-10 09:35] VITALS: BMI 25.9
[2020-06-12 08:42] VITALS: BMI 29.1
[2020-06-12 09:39] VITALS: BP 144/88; PULSE 66; RESP 14; TEMP 36.3; O2SAT 98; BMI 29.1
[2020-06-12 09:56] VITALS: PULSE 70; RESP 16
--- NOTE | 2020-06-12 09:58 | EKG12_ITS ---
Test Reason : DIABETIC Blood Pressure : / mmHG Vent. Rate : 071 BPM Atrial Rate : 071 BPM P-R Int : 194 ms QRS Dur : 114 ms QT Int : 454 ms P-R-T Axes : 055 -66 094 degrees QTc Int : 493 ms Normal sinus rhythm Left anterior fascicular block Anteroseptal infarct , age undetermined Abnormal ECG Confirmed by ABDIRAHMAN MCKEON, FRANDY ([id number]), index editor PANCHITO SUTTON ([id number]) on 06/15/2020 11:38:53 A M Referred By: WAYNE Confirmed By:AINSLEY GARY MD
[2020-06-12] MEDS: 0.9% Normal Saline 1,000 ML 1000 ML IV ×2 (10:00→11:26)
--- NOTE | 2020-06-12 10:04 | ED.VIS.GEN ---
History of Present Illness Chief Complaint: General Illness Narrative: Patient presenting to the emergency department from his primary care office secondary to a low heart rate and a high hemoglobin A1c. Patient has an underlying history of heart failure hypertension hyperlipidemia type 2 diabetes with noncompliance and a past history of polysubstance abuse. Patient states that he was at his primary care office today, had blood work drawn and was noted to have a hemoglobin A1c of greater than 14. When they were getting his vital signs they reported that he had a heart rate in the 40s. Patient does state that he intermittently over the course of the last week has been having cramping type chest pain that does not have any exacerbating relieving factors. He denies any syncope lightheadedness shortness of breath orthopnea or swelling of the legs. Patient does have an ICD in place. Patient reports to me that he has been noncompliant with his diabetic regimen and only intermittently takes his insulin and the last time he took it his sugar was in the 3 or 400s. He typically does not check his blood sugars. Past Medical History - Allergies and Home Meds Allergies/Adverse Reactions: Allergies No Known Allergies Allergy (Verified 06/12/20 09:39) Primary Care Physician: Tammie Nieves MD [Primary Care Provider] - Prior records reviewed: Yes Past Medical History: - - Diabetes, hypertension, hyperlipidemia, congestive heart failure Surgical History: - Lives: Spouse/ Significant Other Smoking Status: Current every day smoker Alcohol: Occasional Drugs: Cocaine, Marijuana - Family History Paternal Family History: Family History (Last Reviewed 06/12/20 @ 08:53 by Fior Leblanc) Mother CAD (coronary artery disease) Diabetes Hypertension Myocardial infarction Father CAD (coronary artery disease) Diabetes Hypertension Myocardial infarction Brother Hypertension Family History: Reports: Diabetes, High Cholesterol, Heart Disease, Hypertension Maternal Family History: Family History (Last Reviewed 06/12/20 @ 08:53 by Fior Leblanc) Mother CAD (coronary artery disease) Diabetes Hypertension Myocardial infarction Father CAD (coronary artery disease) Diabetes Hypertension Myocardial infarction Brother Hypertension Family History: Reports: Diabetes, High Cholesterol, Heart Disease, Hypertension Review of Systems All systems negative except as indicated General: Denies: Chills, Fever, Sweats Eyes: Denies: Visual changes - bilaterally, Diplopia ENT: Denies: Rhinorrhea, Sore throat Cardiovascular: Reports: Chest pain Respiratory: Denies: Dyspnea, Cough, Dyspnea on exertion Gastrointestinal: Denies: Abdominal pain, Nausea, Vomiting, Diarrhea, Melena, Hematochezia Genitourinary: Denies: Dysuria, Hematuria, Frequency Musculoskeletal: Reports: Extremity Pain Skin: Denies: Rash, Wounds Neurological: Denies: Headache, Weakness, Numbness Physical Exam Vital Signs/Narrative: Vital Signs Temp Pulse Resp BP Pulse Ox 06/12/20 09:56 70 16 06/12/20 09:39 97.4 F L 66 14 144/88 H 98 Inital Vital Signs reviewed: Yes General: Well nourished, Well developed, No Acute Distress Head: Normocephalic, Atraumatic Eyes: Perrl, EOMI ENT: Moist mucous membranes, No rhinorrhea Neck: Supple, Nontender Cardiovascular: Regular rate, Regular rhythm, No murmurs Respiratory: No distress, CTA bilaterally, Chest nontender Abdomen: Soft, Nontender, Nondistended, Normal bowel sounds Back: Nontender, Normal Inspection Extremities: No edema, Tenderness - Left lateral thigh Skin: Normal color, No rash Neurological: Alert, Oriented x3, Cranial nerves II-XII grossly intact, Normal Strength, Normal Sensation Psychological: Normal affect, Normal Mood Diagnostic/Tx/Re-eval - Medical Decision Making Laboratory Data 06/12/20 06/12/20 06/12/20 10:05 10:05 10:05 WBC 6.8 RBC 4.95 Hgb 15.2 Hct 44.1 MCV 89.1 MCH 30.7 MCHC 34.5 RDW Std Deviation 40.1 RDW Coeff of Brandi 12.2 Plt Count 147 L MPV 10.3 Immature Gran % (Auto) 0.100 Neut % (Auto) 54.8 Lymph % (Auto) 32.6 [place] % (Auto) 8.1 Eos % (Auto) 4.1 Baso % (Auto) 0.3 Absolute Neuts (auto) 3.7 Absolute Lymphs (auto) 2.22 Nucleated RBC % 0 Sodium 132 L Potassium 4.1 Chloride 99 Carbon Dioxide 30.0 Anion Gap 3 L BUN 10 Creatinine 1.13 Estim Creat Clear Calc 93.47 Est GFR (MDRD) Af Amer 91 Est GFR (MDRD) Non-Af 75 BUN/Creatinine Ratio 8.8 L Glucose 435 H Serum Osmolality 303 H Calcium 8.5 Total Bilirubin 0.70 AST 89 H ALT 237 H Alkaline Phosphatase 117 Troponin I < 0.015 Total Protein 7.2 Albumin 3.4 Globulin 3.8 Albumin/Globulin Ratio 0.9 POC Glucose 06/12/20 10:15 WBC RBC Hgb Hct MCV MCH MCHC RDW Std Deviation RDW Coeff of Brandi Plt Count MPV Immature Gran % (Auto) Neut % (Auto) Lymph % (Auto) [place] % (Auto) Eos % (Auto) Baso % (Auto) Absolute Neuts (auto) Absolute Lymphs (auto) Nucleated RBC % Sodium Potassium Chloride Carbon Dioxide Anion Gap BUN Creatinine Estim Creat Clear Calc Est GFR (MDRD) Af Amer Est GFR (MDRD) Non-Af BUN/Creatinine Ratio Glucose Serum Osmolality Calcium Total Bilirubin AST ALT Alkaline Phosphatase Troponin I Total Protein Albumin Globulin Albumin/Globulin Ratio POC Glucose > 500 H* Patient presented secondary to a potential episode of bradycardia and hyperglycemia. IV was established. Patient has evidence of chronically elevated blood glucoses, he was given 2 L of saline and 15 units of subcu insulin. He has no significant electrolyte derangements his troponin was negative and on telemetry monitoring he did not have any abnormal events. His EKG is grossly unchanged from prior EKGs. I do not feel that the patient has an emergent issue that requires admission. I admonished the patient that he needs to start taking care of his blood glucose otherwise he will be slowly killing himself by endorgan damage. He did voice understanding of this. Patient was discharged in stable condition. ED Disposition - Plan for ED Patient: Disposition: Home or Assisted Living Diagnosis: Hyperglycemia, Noncompliance Instructions: ED Diabetic Hyperglycemia Prescriptions: Acetaminophen [Tylenol Extra Strength] 500 mg PO Q4H PRN PRN #20 tab PRN Reason: Pain 1-10 Or Fever Prescription Printed Referrals: Tammie Nieves MD [Primary Care Provider] - As soon as possible Additional Instructions: If you do not get your blood sugar under control, you will slowly kill yourself and potentially end up on dialysis, blind, with a heart attack or stroke
[2020-06-12] MEDS: Acetaminophen 500 MG Tablet 1000 MG PO (10:06)
[2020-06-12 10:11] LABS: Absolute Lymphocyte Count 2.22 X10^3/uL (0.83-4.51); Absolute Neutrophil Count 3.7 X10^3/uL (2.0-7.7); Basophil# 0.02 X10^3/uL; Basophil% 0.3 % (0-1); Eosinophil# 0.28 X10^3/uL; Eosinophils% 4.1 % (0-5); Hematocrit 44.1 % (40-54); Hemoglobin 15.2 g/dL (13.0-16.5); Lymphocyte # 2.22 X10^3/ul (4.0); Lymphocyte % 32.6 % (19-41); Mean Corp Hgb Conc 34.5 g/dL (32-36); Mean Corpuscular Hgb 30.7 pg (27.0-32.0); Mean Corpuscular Volume 89.1 fL (80-94); Mean Platelet Vol. 10.3 fl (6.2-12.0); Monocyte# 0.55 X10^3/uL; Monocyte% 8.1 % (0-10); NRBC Flagged by Analyzer 0 % (0-5); Neutrophil # 3.74 X10^3/uL (2.7-7.7); Neutrophil % 54.8 % (47-70); Platelet Count 147 K/mm3 (150-450); RBC Distribution Width CV 12.2 % (11.6-14.6); RBC Distribution Width SD 40.1 fl (35.1-43.9); Red Blood Count 4.95 M/mm3 (4.6-6.2); White Blood Count 6.8 K/mm3 (4.4-11.0)
[2020-06-12 10:20] LABS: Bedside Glucose > 500 mg/dL (70-110)
[2020-06-12 10:29] LABS: ALB/GLOB Ratio 0.9 RATIO (0.9-2.4); AST(SGOT) 89 U/L (15-37); Alanine Aminotransfer ALT/SGPT 237 U/L (16-61); Albumin, Serum 3.4 g/dL (3.2-5.0); Alkaline Phosphatase 117 U/L (45-117); Anion Gap 3 (5-15); BUN 10 mg/dL (7-18); BUN/Creat Ratio 8.8 RATIO (10-20); Calcium,Total 8.5 mg/dL (8.5-10.1); Chloride 99 mmol/L (98-107); Creatinine, Serum 1.13 mg/dL (0.70-1.30); EST Glomerular Filtration Rate 75 mL/min (>60); Est Glom Filt Rate - Afr Amer 91 mL/min (>60); Estimated Creatinine Clearance 93.47 ml/min; Globulin 3.8 g/dL (2.2-4.2); Glucose 435 mg/dL (74-106); Potassium 4.1 mmol/L (3.5-5.1); Protein, Total 7.2 g/dL (6.4-8.2); Sodium Level 132 mmol/L (136-145)
[2020-06-12 10:40] LABS: Osmolality, Serum 303 mOsm/KG (275-295)
[2020-06-12] MEDS: Insulin Lispro 100 UNIT/ML INSULN.PEN 15 UNIT SC (11:24)
[2020-06-12 11:40] VITALS: BP 142/92; PULSE 65; RESP 17; O2SAT 98
[2020-06-12 12:24] VITALS: BP 119/73; PULSE 78; RESP 18; O2SAT 96
== END 2020-06-12 12:28 | disposition home or self-care (01) ==
PROVIDERS: Emergency Provider Emergency Medicine; PCP Internal Medicine
DX: E11.65 Type 2 diabetes mellitus with hyperglycemia (principal); I11.0 Hypertensive heart disease with heart failure; I50.9 Heart failure, unspecified; E78.5 Hyperlipidemia, unspecified; F17.200 Nicotine dependence, unspecified, uncomplicated; Z91.14 Patient's other noncompliance with medication regimen; Z79.4 Long term (current) use of insulin; Z95.810 Presence of automatic (implantable) cardiac defibrillator; Z79.899 Other long term (current) drug therapy
CPT/HCPCS: 80053; 82962; 83930; 84484; 85025; 93005; 96360; 96361; 99284; J7030; A4216

== ENCOUNTER → 2021-03-19 09:26 | Outpatient (CLI) | payer MEDICAID, SELFPAY ==
[2020-04-10 09:35] VITALS: BMI 25.9
[2021-03-19 12:34] LABS: Absolute Lymphocyte Count 3.16 X10^3/uL (0.83-4.51); Absolute Neutrophil Count 4.4 X10^3/uL (2.0-7.7); Basophil# 0.03 X10^3/uL; Basophil% 0.4 % (0-1); Eosinophils% 3.5 % (0-5); Hematocrit 48.8 % (40-54); Hemoglobin 16.8 g/dL (13.0-16.5); Lymphocyte # 3.16 X10^3/ul (0.83-4.51); Lymphocyte % 37.3 % (19-41); Mean Corp Hgb Conc 34.4 g/dL (32-36); Mean Corpuscular Hgb 31.2 pg (27.0-32.0); Mean Corpuscular Volume 90.5 fL (80-94); Mean Platelet Vol. 10.3 fl (6.2-12.0); Monocyte# 0.58 X10^3/uL; Monocyte% 6.8 % (0-10); NRBC Flagged by Analyzer 0 % (0-5); Neutrophil % 51.9 % (47-70); Platelet Count 180 K/mm3 (150-450); RBC Distribution Width CV 12.6 % (11.6-14.6); RBC Distribution Width SD 41.6 fl (35.1-43.9); Red Blood Count 5.39 M/mm3 (4.6-6.2); White Blood Count 8.5 K/mm3 (4.4-11.0)
[2021-03-19 12:53] LABS: Microalbumin,Random Urine 8.6 mg/L (NO RANGE EST.); Microalbumin:Creatinine Ratio 27.3 mg/g CRE (<30 mg/g CRE)
[2021-03-19 13:02] LABS: ALB/GLOB Ratio 0.8 RATIO (0.9-2.4); AST(SGOT) 55 U/L (15-37); Alanine Aminotransfer ALT/SGPT 127 U/L (16-61); Albumin, Serum 3.7 g/dL (3.2-5.0); Alkaline Phosphatase 105 U/L (45-117); Anion Gap 5 (5-15); BUN 10 mg/dL (7-18); Chloride 97 mmol/L (98-107); Cholesterol 141 mg/dL (200); Creatinine, Serum 1.11 mg/dL (0.70-1.30); EST Glomerular Filtration Rate 77 mL/min (>60); Est Glom Filt Rate - Afr Amer 93 mL/min (>60); Globulin 4.6 g/dL (2.2-4.2); Glucose 322 mg/dL (74-106); High Density Lipoprotein 55 mg/dL; Potassium 4.1 mmol/L (3.5-5.1); Protein, Total 8.3 g/dL (6.4-8.2); Sodium Level 133 mmol/L (136-145); Triglycerides 104 mg/dL; Very Low Density Lipoprotein 21 mg/dL (5-40)
== END ==
PROVIDERS: PCP Internal Medicine; Referring Provider Internal Medicine; Visit Provider Internal Medicine
DX: E11.42 Type 2 diabetes mellitus with diabetic polyneuropathy (principal); E78.5 Hyperlipidemia, unspecified; I10 Essential (primary) hypertension; Z79.4 Long term (current) use of insulin
CPT/HCPCS: 36415; 80053; 80061; 82043; 82570; 85025

== ENCOUNTER → 2021-04-16 08:13 | Outpatient (CLI) | payer MEDICAID, SELFPAY ==
[2020-04-10 09:35] VITALS: BMI 25.9
[2021-04-16 09:26] LABS: Absolute Lymphocyte Count 2.86 X10^3/uL (0.83-4.51); Absolute Neutrophil Count 5.1 X10^3/uL (2.0-7.7); Basophil# 0.03 X10^3/uL; Basophil% 0.3 % (0-1); Eosinophil# 0.32 X10^3/uL; Eosinophils% 3.6 % (0-5); Hematocrit 45.8 % (40-54); Hemoglobin 16.3 g/dL (13.0-16.5); Lymphocyte # 2.86 X10^3/ul (0.83-4.51); Lymphocyte % 32.3 % (19-41); Mean Corp Hgb Conc 35.6 g/dL (32-36); Mean Corpuscular Hgb 31.6 pg (27.0-32.0); Mean Corpuscular Volume 88.8 fL (80-94); Monocyte# 0.58 X10^3/uL; Monocyte% 6.6 % (0-10); NRBC Flagged by Analyzer 0 % (0-5); Neutrophil # 5.05 X10^3/uL (2.7-7.7); Neutrophil % 57.1 % (47-70); Platelet Count 195 K/mm3 (150-450); RBC Distribution Width CV 12.3 % (11.6-14.6); RBC Distribution Width SD 40.3 fl (35.1-43.9); Red Blood Count 5.16 M/mm3 (4.6-6.2); White Blood Count 8.9 K/mm3 (4.4-11.0)
[2021-04-16 09:31] LABS: Erythrocyte Sedimentation Rate 18 mm/hr (0-20)
[2021-04-16 09:51] LABS: ALB/GLOB Ratio 0.8 RATIO (0.9-2.4); AST(SGOT) 35 U/L (15-37); Alanine Aminotransfer ALT/SGPT 81 U/L (16-61); Albumin, Serum 3.5 g/dL (3.2-5.0); Alkaline Phosphatase 95 U/L (45-117); Anion Gap 8 (5-15); BUN 12 mg/dL (7-18); BUN/Creat Ratio 12.2 RATIO (10-20); CRP, High Sensitivity Cardiac 2.63 mg/L; Chloride 101 mmol/L (98-107); Creatinine, Serum 0.99 mg/dL (0.70-1.30); EST Glomerular Filtration Rate 88 mL/min (>60); Est Glom Filt Rate - Afr Amer 106 mL/min (>60); Globulin 4.3 g/dL (2.2-4.2); Glucose 208 mg/dL (74-106); LDH 240 U/L (87-241); Potassium 3.6 mmol/L (3.5-5.1); Protein, Total 7.8 g/dL (6.4-8.2); Sodium Level 135 mmol/L (136-145)
[2021-04-16 09:52] LABS: AST(SGOT) 35 U/L (15-37); Alanine Aminotransfer ALT/SGPT 83 U/L (16-61); Albumin, Serum 3.4 g/dL (3.2-5.0); Alkaline Phosphatase 95 U/L (45-117); Bilirubin, Direct 0.09 mg/dL (0.00-0.30); Globulin 4.4 g/dL (2.2-4.2); Protein, Total 7.8 g/dL (6.4-8.2); Thyroid Stim Hormone (TSH) 2.04 uIU/mL (0.358-3.74)
[2021-04-16 10:06] LABS: Hepatitis B Surface Antigen REACTIVE (Nonreactive)
[2021-04-18 07:46] LABS: Anti-Mitochondrial AB <20.0 Units (0.0-20.0)
[2021-04-19 02:07] LABS: Anti-Centromere B Ab <0.2 AI (0.0-0.9); Anti-Chromatin <0.2 AI (0.0-0.9); Anti-Jo <0.2 AI (0.0-0.9); Anti-Scleroderma-70 AB <0.2 AI (0.0-0.9); Anti-ribosomal P Antibodies <0.2 AI (0.0-0.9); RNP Ab 0.2 AI (0.0-0.9); SJOGREN'S Anti-SS-A test < 0.2 AI (0.0-0.9); SJOGREN'S Anti-SS-B test < 0.2 AI (0.0-0.9); Smith Ab <0.2 AI (0.0-0.9); Smith/RNP Ab <0.2 AI (0.0-0.9)
[2021-04-19 13:35] LABS: Anti-dsDNA Ab 29 IU/mL (0-9)
[2021-04-21 02:07] LABS: Angiotensin Convert Enzyme 119 U/L (14-82); Ceruloplasmin 25.6 mg/dL (16.0-31.0); Cytoplasmic Ab (C-ANCA) <1:20 titer (Neg:<1:20); Endomysial Antibody IgA Negative (Negative); Hepatitis A IgM Antibody Negative (Negative); Hepatitis B Core AB IgM Positive (Negative); Hepatitis Be Ag Positive (Negative); Immunoglobulin A 322 mg/dL (90-386); Immunoglobulin E 124 IU/mL (6-495); Immunoglobulin G 1366 mg/dL (603-1613); Immunoglobulin M 65 mg/dL (20-172)
[2021-04-21 07:48] LABS: Anti-Smooth Muscle ABS 6 Units (0-19); Copper, Serum or Plasma 125 ug/dL (69-132); HEPATITIS B SURFACE AG Positive (Negative); Hep C Antibodies <0.1 s/co ratio (0.0-0.9); Hepatitis Be Ab Negative (Negative); Perinuclear Ab (P-ANCA) <1:20 titer (Neg:<1:20); t-Transglutaminase IgA <2 U/mL (0-3)
== END ==
PROVIDERS: Nurse Practitioner Adult Health; Nurse Practitioner Gerontology; PCP Internal Medicine; Referring Provider Internal Medicine Gastroenterology; Visit Provider Internal Medicine Gastroenterology
DX: E11.65 Type 2 diabetes mellitus with hyperglycemia (principal); Z79.4 Long term (current) use of insulin; Z79.899 Other long term (current) drug therapy
CPT/HCPCS: 36415; 80053; 80074; 80076; 82164; 82390; 82525; 82784; 82785; 83516; 83615; 84443; 85025; 86038; 86141; 86225; 86235; 86255; 86256; 86707; 87340; 87350; 87521

== ENCOUNTER 2021-04-23 19:05 | Emergency (ER) | payer MEDICAID, SELFPAY ==
[2020-04-10 09:35] VITALS: BMI 25.9
[2021-04-23 19:06] VITALS: BP 112/78; PULSE 71; RESP 16; TEMP 36.6; O2SAT 99; BMI 28.2
--- NOTE | 2021-04-23 19:42 | ED.VIS.GI ---
HPI HPI - GI History of Present Illness Chief Complaint: Abd Pain Informant: patient Abdominal Pain/Flank Pain Onset: Days Context: Gradual Onset Timing: Continuous Location: Epigastric, RUQ and LUQ Current Severity: Mild Maximum Severity: Mild Worsened by: Nothing Relieved by: Nothing Nausea/Vomiting/Emesis GI Symptom: Negative for Nausea and Vomiting Diarrhea/Melena/Hematochezia GI Symptom: Negative for Diarrhea, Melena and Hematochezia Associated Symptoms Associated Symptoms: Negative for Dysuria, Frequency and Hematuria Narrative Narrative: 45-year-old diabetic male history of prior MIs, cardiac stents with defibrillator pacemaker. Patient had a prior appendectomy. States he tested positive for Covid in the last 2 days has had symptoms for 4 days. He also developed abdominal pain in the last 3 hours. He denies any nausea, vomiting or diarrhea. He denies any dysuria. No abdominal trauma. No back pain. Prior similar symptoms: Yes Recent Illness/Hospitalization: No PFSH PFSH Medical History Anxiety and depression Atherosclerosis of coronary artery of [place] heart without angina pectoris Chronic systolic CHF (congestive heart failure) Depression Diabetes Elevated liver enzymes Essential hypertension Flu vaccine need Hepatitis B History of non-ST elevation myocardial infarction (NSTEMI) (07/2018) Hyperlipidemia ICD (implantable cardioverter-defibrillator) discharge Ischemic cardiomyopathy Nicotine dependence Peripheral neuropathy Polyneuropathy due to type 2 diabetes mellitus Polysubstance abuse Severe left ventricular systolic dysfunction Type 2 diabetes mellitus Home Medications blood pressure monitor #1 ea 05/31/19 [Rx Last Taken Unknown] nitroglycerin 0.4 mg sublingual tablet 0.4 mg SUBLINGUAL Q5M PRN #25 tab 07/01/19 [Rx Last Taken Unknown] lancets 28 gauge #200 ea 08/26/19 [Rx Last Taken Unknown] blood sugar diagnostic #100 ea 11/28/19 [Rx Last Taken Unknown] metformin 1,000 mg 24 hr tablet,extended release 2,000 mg PO QHS tab 06/12/20 [History Last Taken Unknown] sennosides 8.6 mg tablet See Rx Instructions .ROUTE .COMPLEX #120 tab 06/22/20 [Rx Last Taken Unknown] amiodarone 200 mg tablet 200 mg PO DAILY #30 tab 07/09/20 [Rx Last Taken Unknown] aspirin 81 mg tablet,delayed release 81 mg PO ONCE #30 tab 07/09/20 [Rx Last Taken Unknown] atorvastatin 40 mg tablet 40 mg PO DAILY #30 tab 07/09/20 [Rx Last Taken Unknown] clopidogrel 75 mg tablet 75 mg PO DAILY #30 tab 07/09/20 [Rx Last Taken Unknown] furosemide 40 mg tablet 40 mg PO BID #60 tab 07/09/20 [Rx Last Taken Unknown] losartan 25 mg tablet 25 mg PO DAILY #30 tab 07/09/20 [Rx Last Taken Unknown] magnesium oxide 400 mg (241.3 mg magnesium) tablet 400 mg PO BID #60 tab 07/09/20 [Rx Last Taken Unknown] potassium chloride 20 mEq tablet,extended release 20 meq PO DAILY #30 tablet.er 07/09/20 [Rx Last Taken Unknown] spironolactone 25 mg tablet 25 mg PO DAILY #30 tab 07/09/20 [Rx Last Taken Unknown] Handicap Placard #1 ea 07/23/20 [Rx Last Taken Unknown] pantoprazole 40 mg tablet,delayed release 40 mg PO DAILY #90 tab 08/11/20 [Rx Last Taken Unknown] aripiprazole 10 mg tablet 10 mg PO QHS #90 tab 12/18/20 [Rx Last Taken Unknown] Symbicort 160 mcg-4.5 mcg/actuation HFA aerosol inhaler 2 puff INHALATION Q12H #10.2 g NS 03/19/21 [Rx Last Taken Unknown] insulin lispro protamine-lispro 100 unit/mL (50-50) subcutaneous pen 45 unit SC BID 90 Days #81 ml 03/19/21 [Rx Last Taken Unknown] mometasone-formoterol HFA 100 mcg-5 mcg/actuation aerosol inhaler 2 puff INHALATION BID #13 g 03/23/21 [Rx Last Taken Unknown] pen needle, diabetic 31 gauge x 5/16 #100 ea 03/26/21 [Rx Last Taken Unknown] carvedilol 12.5 mg tablet 12.5 mg PO BID #60 tab 04/01/21 [Rx Last Taken Unknown] albuterol sulfate 2.5 mg INHALATION Q2H PRN PRN #90 ml 04/22/21 [Rx Last Taken Unknown] albuterol sulfate 90 mcg/actuation aerosol inhaler 1 puff INHALATION Q6H PRN PRN #8.5 g 04/22/21 [Rx Last Taken Unknown] nebulizer accessories #1 ea 04/22/21 [Rx Last Taken Unknown] nebulizers #1 ea 04/22/21 [Rx Last Taken Unknown] Allergy/AdvReac Type Severity Reaction Status Date / Time No Known Allergies Allergy Verified 04/23/21 19:06 Family History Mother CAD (coronary artery disease) Diabetes Hypertension Myocardial infarction Father CAD (coronary artery disease) Diabetes Hypertension Myocardial infarction Brother Hypertension Surgical History History of appendectomy History of coronary artery stent placement (04/30/18) History of left heart catheterization (12/05/18) Presence of automatic implantable cardioverter-defibrillator (06/28/17) Social History Smoking Status: Current every day smoker tobacco type: cigarettes alcohol intake: never substance use type: marijuana caffeine: Yes Type: carbonated beverages and tea ROS ROS ED ROS Narrative Abdominal pain. Review of Systems ROS Unobtainable: Denies due to encephalopathy Constitutional Constitutional ED: Denies fever(s) ENT ENT ED: Denies ear pain Cardiovascular Cardiovascular: Denies chest pain Respiratory/Chest Respiratory/Chest: Reports cough; Denies dyspnea Gastrointestinal Gastrointestinal: Reports abdominal pain; Denies constipation, diarrhea, nausea or vomiting Genitourinary Genitourinary ED: Denies dysuria or hematuria Musculoskeletal Musculoskeletal: Denies myalgias Integumentary Denies rash Neurologic Neurologic: Denies headache(s) Psychiatric Psychiatric: Denies depression Endocrine Endocrinology: Denies polyuria Hematologic/Lymphatic Hematologic/Lymphatic: Denies easy bruising Allergic/Immunologic Allergic/Immunologic ED: Denies urticaria EXAM Physical Exam Narrative Exam Narrative: Middle-age male no acute distress vital signs stable afebrile he does not look septic or toxic. HEENT exam unremarkable. Moist remembers. Neck nontender no lymphadenopathy. Lungs clear to auscultation bilaterally. Heart regular rhythm no murmur rate about 70. Abdomen soft nondistended normal bowel sounds no peritoneal signs. Minimal tenderness in the epigastric left upper quadrant regions. There is no McBurney's point tenderness. No Noonan sign. No signs of obstruction. No hernia or mass. No pulsatile mass. Soft with normal bowel sounds. Moving all 4 extremities. Nontender no edema. Back nontender. Neurologically awake and alert moving all 4 extremities. Const Vital Signs: 04/23/21 19:06 Temperature 97.8 F Temperature Source Temporal Pulse Rate 71 Respiratory Rate 16 Blood Pressure 112/78 Blood Pressure Mean 89 Pulse Ox 99 Positive well nourished and well developed; Negative for obese, cachectic, contractures or unkempt General Appearance ED: well developed and NAD; Negative for unkempt, cachectic, contractures or pallor Nutritional Appearance: Negative for cachectic or obese HEENT Reports moist mucous membranes normocephalic and atraumatic; Negative for trauma or tenderness Eyes PERRL and EOMs intact bilaterally Neck no lymphadenopathy, supple and no JVD General: Negative for tenderness Resp normal respiratory effort and clear to auscultation bilaterally Auscultation: Negative for rales, rhonchi or wheezes Cardio regular rate, regular rhythm, S1 normal heart sound, S2 normal heart sound and no murmurs GI non-distended and no masses; Negative for non-tender Inspection: Negative for abdominal distention Auscultation: normoactive bowel sounds; Negative for hyperactive bowel sounds or hypoactive bowel sounds Palpation: soft and tender; Negative for guarding, rigid, splenomegaly, hernia, mass, pulsatile mass or rebound tenderness present Back/Spine no CVA tenderness Extremity full ROM General Extremety ED: Negative for edema or tenderness General Extremity: Negative for edema Neuro moves all extremities Sensorium / Orientation: alert, oriented to person, oriented to place and oriented to time; Negative for orientation impaired, confused, lethargic or stuporous Motor Exam: strength 5/5 throughout Psych mental status grossly normal and thought process normal Appearance: Negative for unkempt Skin no wounds General Skin Exam: Negative for jaundice or pallor Lesions: no lesions Rashes: no rashes MDM MDM MDM Narrative Medical decision making narrative: 45-year-old male complaining of mild epigastric left upper quadrant abdominal pain. Exam is very benign. Abdomen has no peritoneal signs. Screening labs and x-ray being obtained. As informed by nursing staff patient passed gas and I left. So his labs were never obtained and he left without being discharged. Discharge Plan Triage Chief Complaint: Abd Pain ED Provider: Say Moran Dx/Rx/DC Orders Clinical Impression: Abdominal pain, COVID-19, History of diabetes mellitus, Eloped from emergency department Instructions: ED Abdominal Pain Unkn Cause Male... Prescriptions: No Action nitroglycerin 0.4 mg tablet, sublingual 0.4 mg SUBLINGUAL Q5M PRN (Reason: Chest Pain) Qty: 25 RF: 3 (DME) lancets [FreeStyle Lancets] 28 gauge misc See Dose Instructions .Route .MEDSUPPLY Qty: 200 RF: 3 (DME) Handicap Placard See Rx Instructions .Route .MEDSUPPLY Qty: 1 RF: 0 metformin 1,000 mg tablet,ER shelby.retention 24 hr 2,000 mg PO QHS RF: 0 carvedilol 12.5 mg tablet 12.5 mg PO BID Qty: 60 RF: 11 pantoprazole 40 mg tablet,delayed release (DR/EC) 40 mg PO DAILY Qty: 90 RF: 3 aripiprazole 10 mg tablet 10 mg PO QHS Qty: 90 RF: 1 Humalog Mix 50-50 KwikPen 100 unit/mL (50-50) insulin pen 45 unit SC BID 90 Days Qty: 81 RF: 1 (DME) blood pressure monitor Kit See Rx Instructions .ROUTE .MEDSUPPLY Qty: 1 RF: 0 (DME) blood sugar diagnostic Strip See Rx Instructions .ROUTE .MEDSUPPLY Qty: 100 RF: 5 sennosides [senna] 8.6 mg tablet See Rx Instructions .ROUTE .COMPLEX Qty: 120 RF: 4 amiodarone 200 mg tablet 200 mg PO DAILY Qty: 30 RF: 11 aspirin 81 mg tablet,delayed release (DR/EC) 81 mg PO ONCE Qty: 30 RF: 11 atorvastatin 40 mg tablet 40 mg PO DAILY Qty: 30 RF: 11 Hold Instructions: Elevated LFT-Seeing Friend 03/2021 clopidogrel 75 mg tablet 75 mg PO DAILY Qty: 30 RF: 11 furosemide 40 mg tablet 40 mg PO BID Qty: 60 RF: 11 losartan 25 mg tablet 25 mg PO DAILY Qty: 30 RF: 11 magnesium oxide 400 mg (241.3 mg magnesium) tablet 400 mg PO BID Qty: 60 RF: 11 potassium chloride 20 mEq tablet extended release 20 meq PO DAILY Qty: 30 RF: 11 spironolactone 25 mg tablet 25 mg PO DAILY Qty: 30 RF: 11 budesonide-formoterol [Symbicort] 160-4.5 mcg/actuation HFA aerosol inhaler 2 puff INHALATION Q12H Qty: 10.2 RF: 3 Dulera 100-5 mcg/actuation HFA aerosol inhaler 2 puff inhalation BID Qty: 13 RF: 3 (DME) pen needle, diabetic [1st Tier Unifine Pentips] 31 gauge x 5/16 needle See Rx Instructions .ROUTE .MEDSUPPLY Qty: 100 RF: 3 (DME) nebulizer accessories Misc See Rx Instructions .ROUTE .MEDSUPPLY Qty: 1 RF: 0 (DME) Aeroneb Go Nebulizer Misc See Rx Instructions .ROUTE .MEDSUPPLY Qty: 1 RF: 0 albuterol sulfate 2.5 mg /3 mL (0.083 %) solution for nebulization 2.5 mg INHALATION Q2H PRN PRN (Reason: dyspnea, wheezing) Qty: 90 RF: 3 albuterol sulfate 90 mcg/actuation HFA aerosol inhaler 1 puff INHALATION Q6H PRN PRN (Reason: Sob &/Or Wheezing) Qty: 8.5 RF: 1 Primary Care Provider: Tammie Nieves Referrals: Tammie Nieves MD [Primary Care Provider] - Disposition Disposition: Elopement
--- NOTE | 2021-04-23 19:49 | NURSING ---
WEnt into pt room to start iv and pt dressed and said he passed gas and feels much better. Pt walked out
== END 2021-04-23 19:50 | disposition left against medical advice (07) ==
PROVIDERS: Emergency Provider Emergency Medicine; PCP Internal Medicine
DX: U07.1 COVID-19 (principal); R10.13 Epigastric pain; R10.12 Left upper quadrant pain; Z53.29 Procedure and treatment not carried out because of patient's decision for other reasons; E11.40 Type 2 diabetes mellitus with diabetic neuropathy, unspecified; E78.5 Hyperlipidemia, unspecified; F32.A Depression, unspecified; F41.9 Anxiety disorder, unspecified; I11.0 Hypertensive heart disease with heart failure; I25.10 Atherosclerotic heart disease of native coronary artery without angina pectoris; I25.2 Old myocardial infarction; I25.5 Ischemic cardiomyopathy; Z95.810 Presence of automatic (implantable) cardiac defibrillator; Z79.4 Long term (current) use of insulin; Z79.82 Long term (current) use of aspirin; Z79.899 Other long term (current) drug therapy; F17.210 Nicotine dependence, cigarettes, uncomplicated
CPT/HCPCS: 99281; 99282

== ENCOUNTER 2021-06-15 07:56 | Outpatient (CLI) | payer MEDICAID, SELFPAY ==
[2020-04-10 09:35] VITALS: BMI 25.9
--- NOTE | 2021-06-15 12:40 | PFTCOMP ---
COMPLETE PULMONARY FUNCTION TEST INTERPRETATION Brief HPI: Patient is a 45 year old Black male, currently under the care of Romelia Ricci, who presents to [facility] [place] for complete pulmonary function tests secondary to diagnosis of long-term med use. Respiratory therapist reports good effort and reproducible results. Interpretation: Forced expiration spirometry shows a moderate large airways obstructive ventilatory defect with an FEV1 of 69% predicted. There is no significant bronchodilator response by strict ATS criteria. Spirograms are of good quality and plateau slowly, indicating slowly emptying areas of the lungs. The respiratory flow volume loop shows decreased expiratory flow rates at all lung volumes consistent with airway obstruction. Lung volumes by body plethysmography show decreased total lung capacity at 6.18 L, 84% predicted. All other lung volumes are reduced symmetrically. Diffusion capacity by carbon monoxide is decreased at 67% predicted. The airway resistance is elevated. No previous pulmonary function tests were available for review. Impression: Irreversible moderate mixed ventilatory defect with a symmetric reduction diffusing capacity
== END 2021-06-15 23:59 | disposition home or self-care (01) ==
LOC: PSN 08:00
PROVIDERS: PCP Internal Medicine; Referring Provider Nurse Practitioner Gerontology; Visit Provider Nurse Practitioner Gerontology
DX: Z79.899 Other long term (current) drug therapy (principal)
CPT/HCPCS: 94060; 94726; 94729

== ENCOUNTER 2021-06-21 07:46 | Outpatient (CLI) | payer MEDICAID, SELFPAY ==
[2020-04-10 09:35] VITALS: BMI 25.9
--- NOTE | 2021-06-21 07:48 | CT_ITS ---
STUDY: CT ABDOMEN AND PELVIS WITH CONTRAST REASON FOR EXAM: Male, 45 years old. Hepatitis b RADIATION DOSAGE (If Supplied By Facility): CTDIvol = ( 15.44 ) mGy, DLP = ( 915.90 ) mGycm TECHNIQUE: Transaxial images were obtained from the dome of the diaphragm to the symphysis pubis with oral contrast. Oral and amp; IV Redi-CAT and amp; 100mL Isovue-300 was administered. Sagittal and coronal images were reconstructed. Individualized dose optimization techniques were used for this CT. COMPARISON: None. FINDINGS: Mild degree of increased markings at the lung bases suggestive of bibasilar atelectasis. Coronary artery calcification. Minimal degree of pericardial thickening along the right heart border. There is decreased attenuation of the liver consistent with steatosis. Normal gallbladder and extrahepatic biliary system. Normal spleen. Normal pancreas. Normal bilateral adrenal glands. Normal right kidney. Normal left kidney. There is a small hiatal hernia. Normal small intestine. There are scattered colonic diverticula consistent with diverticulosis. The appendix is visualized and appears normal. There is diffuse atherosclerotic calcification of the abdominal aorta, without a demonstrated aneurysm. Normal inferior vena cava. There is borderline retroperitoneal lymphadenopathy with enlarged nodes no greater than 10mm in the short axis diameter. Mild degree of diffuse bladder wall thickening. There are prostatic calcifications. There is a small umbilical hernia containing fat. Normal osseous structures. CT/Abdomen/Pelvis WITH Contrast IMPRESSION: Fatty infiltration of the liver. Scattered sigmoid diverticula. Diffuse bladder wall thickening. Electronically Signed: Nishant Masterson MD at 8:54 EST ,
[2021-06-21 08:16] LABS: CREATININE FINGERSTICK 0.8 mg/dL (0.70-1.30); EGFR FINGERSTICK > 60.0000 mL/min (>60)
== END 2021-06-21 23:59 | disposition home or self-care (01) ==
LOC: CT 07:47
PROVIDERS: PCP Internal Medicine; Referring Provider Internal Medicine Gastroenterology; Visit Provider Internal Medicine Gastroenterology
DX: B19.10 Unspecified viral hepatitis B without hepatic coma (principal); R74.8 Abnormal levels of other serum enzymes
CPT/HCPCS: 74177; Q9967; A4216

== ENCOUNTER 2021-06-24 20:00 | Outpatient (CLI) | payer MEDICAID, SELFPAY ==
[2020-04-10 09:35] VITALS: BMI 25.9
== END 2021-06-24 23:59 | disposition home or self-care (01) ==
LOC: SL 20:05
PROVIDERS: PCP Internal Medicine; Visit Provider Nurse Practitioner Gerontology
DX: G47.10 Hypersomnia, unspecified (principal)
CPT/HCPCS: 95810

== ENCOUNTER 2021-07-06 04:54 | Emergency (ER) | payer MEDICAID, SELFPAY ==
[2020-04-10 09:35] VITALS: BMI 25.9
[2021-07-06 04:55] VITALS: BP 130/82; PULSE 60; RESP 17; TEMP 35.1; O2SAT 95; BMI 30.4
[2021-07-06 05:06] LABS: Bedside Glucose 71 mg/dL (74-106)
--- NOTE | 2021-07-06 05:14 | EKG12_ITS ---
Test Reason : HYPOGLYCI Blood Pressure : / mmHG Vent. Rate : 059 BPM Atrial Rate : 059 BPM P-R Int : 182 ms QRS Dur : 100 ms QT Int : 484 ms P-R-T Axes : 059 -52 256 degrees QTc Int : 479 ms Sinus bradycardia Left anterior fascicular block Anteroseptal infarct , age undetermined ST & T wave abnormality, consider inferolateral ischemia Abnormal ECG Confirmed by CHAR MCKEON, HAIM ([id number]), photography editor PANCHITO SUTTON ([id number]) on 07/07/2021 9:39:59 AM Referred By: TONIE Confirmed By:HAIM PARDO MD
--- NOTE | 2021-07-06 05:14 | RAD_ITS ---
STUDY: X-RAY CHEST REASON FOR EXAM: Male, 45 years old. Altered mental status TECHNIQUE: Single AP portable view of the chest. COMPARISON: December 04, 2018 chest x-ray FINDINGS: There is a left-sided defibrillator with the lead overlying the right side of the heart. The lungs are clear and expanded. There is no demonstrated pleural abnormality. Normal size heart. Normal mediastinum and kelly. Normal visualized pulmonary arteries. Normal visualized aortic arch and descending thoracic aorta. Normal visualized thoracic spine. Normal visualized ribs, clavicles, and shoulders. There is no demonstrated abnormality of the visualized soft tissue structures of the upper abdomen. RAD/Chest 1 View (Portable) IMPRESSION: No demonstrated acute cardiopulmonary process. Electronically Signed: Sparkle Newton MD at 5:52 EST ,
--- NOTE | 2021-07-06 05:16 | EX.ED.DYSGE1 ---
[facility] <Dr. Zachary Figueroa, DO - Last Filed: 07/06/21 07:56> History of Present Illness Chief Complaint: Hypoglycemia Narrative Narrative: 45-year-old male presenting for evaluation of hypoglycemia. Apparently had episode of altered mental status at home this morning. He states he last ate at about 3:57 PM yesterday. He states he did smoke marijuana overnight but did not do any other drugs. He states he started to feel like he was hungry and wanted to go eat but he laid down. His significant other stated that he started to snore and have a lot of secretions come from his mouth. She states that she has seen seizures before and this does not look like a full fledged seizure however it kind of look like a seizure. She called EMS who arrived and noted that his blood sugar was 25. He was given D10 on scene and appeared improved. At this point he stated that he wanted to come by car. He arrives without any recurrent symptoms. He states his blood sugar has never been this low before. He states his medications are taken as prescribed. He takes Humalog 50-50 45 units subcutaneously twice daily, and metformin 2000 mg p.o. nightly. He does not feel that his baseline currently but feels much improved. He is eating crackers with peanut butter on my evaluation. He denies chest pain, palpitations, shortness of breath. He denies abdominal pain, nausea, vomiting. He is making normal urine and stool. [facility] <Dr. Zacahry Figueroa, DO - Last Filed: 07/06/21 07:56> [facility] Medical History Anxiety and depression Atherosclerosis of coronary artery of [place] heart without angina pectoris Bipolar I disorder with depression Chronic constipation Chronic systolic CHF (congestive heart failure) Depression Diabetes Elevated liver enzymes Essential hypertension Flu vaccine need Hepatitis B History of non-ST elevation myocardial infarction (NSTEMI) (07/2018) Hyperlipidemia ICD (implantable cardioverter-defibrillator) discharge Ischemic cardiomyopathy Nicotine dependence Peripheral neuropathy Polyneuropathy due to type 2 diabetes mellitus Polysubstance abuse Severe left ventricular systolic dysfunction Type 2 diabetes mellitus Home Medications blood pressure monitor #1 ea 05/31/19 [Rx Last Taken Unknown] nitroglycerin 0.4 mg sublingual tablet 0.4 mg SUBLINGUAL Q5M PRN #25 tab 07/01/19 [Rx Last Taken Unknown] lancets 28 gauge #200 ea 08/26/19 [Rx Last Taken Unknown] blood sugar diagnostic #100 ea 11/28/19 [Rx Last Taken Unknown] aspirin 81 mg tablet,delayed release 81 mg PO ONCE #30 tab 07/09/20 [Rx Last Taken Unknown] atorvastatin 40 mg tablet 40 mg PO DAILY #30 tab 07/09/20 [Rx Last Taken Unknown] clopidogrel 75 mg tablet 75 mg PO DAILY #30 tab 07/09/20 [Rx Last Taken Unknown] furosemide 40 mg tablet 40 mg PO BID #60 tab 07/09/20 [Rx Last Taken Unknown] losartan 25 mg tablet 25 mg PO DAILY #30 tab 07/09/20 [Rx Last Taken Unknown] magnesium oxide 400 mg (241.3 mg magnesium) tablet 400 mg PO BID #60 tab 07/09/20 [Rx Last Taken Unknown] potassium chloride 20 mEq tablet,extended release 20 meq PO DAILY #30 tablet.er 07/09/20 [Rx Last Taken Unknown] spironolactone 25 mg tablet 25 mg PO DAILY #30 tab 07/09/20 [Rx Last Taken Unknown] Handicap Placard #1 ea 07/23/20 [Rx Last Taken Unknown] pantoprazole 40 mg tablet,delayed release 40 mg PO DAILY #90 tab 08/11/20 [Rx Last Taken Unknown] insulin lispro protamine-lispro 100 unit/mL (50-50) subcutaneous pen 45 unit SC BID 90 Days #81 ml 03/19/21 [Rx Last Taken Unknown] pen needle, diabetic 31 gauge x 5/16 #100 ea 03/26/21 [Rx Last Taken Unknown] carvedilol 12.5 mg tablet 12.5 mg PO BID #60 tab 04/01/21 [Rx Last Taken Unknown] albuterol sulfate 2.5 mg INHALATION Q2H PRN PRN #90 ml 04/22/21 [Rx Last Taken Unknown] albuterol sulfate 90 mcg/actuation aerosol inhaler 1 puff INHALATION Q6H PRN PRN #8.5 g 04/22/21 [Rx Last Taken Unknown] nebulizer accessories #1 ea 04/22/21 [Rx Last Taken Unknown] nebulizers #1 ea 04/22/21 [Rx Last Taken Unknown] metformin 1,000 mg 24 hr tablet,extended release 2,000 mg PO QHS 90 Days #180 tab 01/17/22 [Rx Last Taken Unknown] Symbicort 160 mcg-4.5 mcg/actuation HFA aerosol inhaler 2 puff INHALATION Q12H #10.2 g NS 06/21/21 [Rx Last Taken Unknown] aripiprazole 10 mg tablet 10 mg PO QHS #90 tab 06/21/21 [Rx Last Taken Unknown] sennosides 8.6 mg-docusate sodium 50 mg tablet 1 tab-cap PO BID #180 tab 06/21/21 [Rx Last Taken Unknown] Allergy/AdvReac Type Severity Reaction Status Date / Time No Known Allergies Allergy Verified 07/06/21 05:00 Family History Mother CAD (coronary artery disease) Diabetes Hypertension Myocardial infarction Father CAD (coronary artery disease) Diabetes Hypertension Myocardial infarction Brother Hypertension Surgical History History of appendectomy History of coronary artery stent placement (04/30/18) History of left heart catheterization (12/05/18) Presence of automatic implantable cardioverter-defibrillator (06/28/17) Social History Smoking Status: Current every day smoker tobacco type: cigarettes alcohol intake: never substance use type: marijuana caffeine: Yes Type: carbonated beverages and tea ROS <Dr. Zachary Figueroa, - Last Filed: 07/06/21 07:56> ROS ED Constitutional Constitutional ED: Denies chills or fever(s) Eyes Eyes: Denies change in vision ENT ENT ED: Denies rhinorrhea Cardiovascular Cardiovascular: Denies chest pain or palpitations Respiratory/Chest Respiratory/Chest: Denies cough or dyspnea Gastrointestinal Gastrointestinal: Denies abdominal pain, nausea or vomiting Genitourinary Genitourinary ED: Denies dysuria or hematuria Musculoskeletal Musculoskeletal: Denies arthralgias or myalgias Integumentary Denies rash Neurologic Neurologic: Reports headache(s); Denies paresthesias or weakness EXAM <Dr. Zachary Figueroa DO - Last Filed: 07/06/21 07:56> Physical Exam Const Vital Signs: 07/06/21 04:55 07/06/21 05:06 07/06/21 05:24 Temperature 95.1 F L Temperature Source Temporal Pulse Rate 60 Respiratory Rate 17 Respiratory Effort Normal Non-Labored Respiratory Pattern Normal Blood Pressure 130/82 H Blood Pressure Mean 98 Pulse Ox 95 Oxygen Delivery Method Room Air Room Air 07/06/21 09:22 Temperature Temperature Source Pulse Rate Respiratory Rate Respiratory Effort Respiratory Pattern Blood Pressure Blood Pressure Mean Pulse Ox 98 Oxygen Delivery Method Room Air Positive well nourished General Appearance ED: NAD HEENT Reports moist mucous membranes Negative for trauma Eyes PERRL and EOMs intact bilaterally General Eye ED: Negative for pale conjunctiva or scleral icterus Chest Wall inspection of chest normal and palpation of chest normal Resp normal respiratory effort and clear to auscultation bilaterally Cardio regular rate and regular rhythm GI normal to inspection, nondistended, normoactive bowel sounds Extremity normal to inspection General Extremety ED: Negative for edema or tenderness General Extremity: Negative for edema Neuro oriented x3, CN's II-XII intact bilaterally and no sensory deficits noted Sensorium / Orientation: alert Psych mental status grossly normal Skin no rashes or lesions noted <Ronald Rhodes MD - Last Filed: 07/06/21 09:52> Physical Exam Const Vital Signs: 07/06/21 04:55 07/06/21 05:06 07/06/21 05:24 Temperature 95.1 F L Temperature Source Temporal Pulse Rate 60 Respiratory Rate 17 Respiratory Effort Normal Non-Labored Respiratory Pattern Normal Blood Pressure 130/82 H Blood Pressure Mean 98 Pulse Ox 95 Oxygen Delivery Method Room Air Room Air 07/06/21 09:22 Temperature Temperature Source Pulse Rate Respiratory Rate Respiratory Effort Respiratory Pattern Blood Pressure Blood Pressure Mean Pulse Ox 98 Oxygen Delivery Method Room Air [facility] <Dr. Zachary Figueroa DO - Last Filed: 07/06/21 07:56> [facility] Narrative Medical decision making narrative: Patient presenting with hypoglycemic episode. His significant other states that he seemed to be drooling a lot and possibly having a seizure. He was given Narcan prior to arrival out of concern for overdose. Patient was also given glucose via the IV and was able to come in by POV and has not had return of his symptoms. Patient states that he is not quite at his baseline yet. He had no loss of bladder or bowel control. He did not bite his tongue. Given his symptoms I did obtain blood work and imaging. His EKG on my interpretation shows a sinus rhythm with a ventricular rate of 59 bpm. Chest x-ray on my interpretation is no acute cardiopulmonary process the radiologist does agree. CT of the brain is normal. Patient does have a slight leukocytosis of 15. Hemoglobin and hematocrit are normal. Platelets are normal. Renal function and electrolytes are normal. Initial blood sugar here in the ER was 71. Patient had eaten crackers and peanut butter after this and has not had a return of his symptoms. High-sensitivity troponin is 17. EtOH is negative. Awaiting urinalysis and urine drug screen. I felt the patient does not have any evidence of infection he can be discharged home. Patient was signed out to incoming ED provider for follow-up. Impression: 1. hypoglycemia 2. Altered mental status resolved Lab Data Attestation: I reviewed the patient's lab results. Labs: Laboratory Results - last 24 hr 07/06/21 07/06/21 07/06/21 05:03 05:20 05:20 WBC 15.0 H RBC 5.04 Hgb 16.3 Hct 44.6 MCV 88.5 MCH 32.3 H MCHC 36.5 H RDW Std Deviation 38.3 RDW Coeff of Brandi 11.9 Plt Count 227 MPV 9.3 Immature Gran % (Auto) 0.300 Neut % (Auto) 82.4 H Lymph % (Auto) 12.5 L [place] % (Auto) 4.1 Eos % (Auto) 0.5 Baso % (Auto) 0.2 Absolute Neuts (auto) 12.4 H Absolute Lymphs (auto) 1.87 Nucleated RBC % 0 Sodium 136 Potassium 3.5 Chloride 101 Carbon Dioxide 33.0 H Anion Gap 2 L BUN 11 Creatinine 1.01 Estim Creat Clear Calc 103.51 Est GFR (MDRD) Af Amer 103 Est GFR (MDRD) Non-Af 85 BUN/Creatinine Ratio 10.9 Glucose 55 L Calcium 9.3 Troponin I High Sens 16 Urine Color Urine Clarity Urine pH Ur Specific [place] Urine Protein Urine Glucose (UA) Urine Ketones Urine Occult Blood Urine Nitrite Urine Bilirubin Urine Urobilinogen Ur Leukocyte Esterase Urine RBC Urine WBC Ur Squamous Epith Cells Urine Bacteria Urine Mucus Urine Opiates Screen Urine Methadone Screen Ur Barbiturates Screen Ur Phencyclidine Scrn Ur Amphetamines Screen U Methamphetamin-MDMA U Benzodiazepines Scrn Urine Cocaine Screen U Cannabinoids Screen Ur Drug Screen Comment Ethyl Alcohol POC Glucose 71 L 07/06/21 07/06/21 07/06/21 05:20 06:06 06:40 WBC RBC Hgb Hct MCV MCH MCHC RDW Std Deviation RDW Coeff of Brandi Plt Count MPV Immature Gran % (Auto) Neut % (Auto) Lymph % (Auto) [place] % (Auto) Eos % (Auto) Baso % (Auto) Absolute Neuts (auto) Absolute Lymphs (auto) Nucleated RBC % Sodium Potassium Chloride Carbon Dioxide Anion Gap BUN Creatinine Estim Creat Clear Calc Est GFR (MDRD) Af Amer Est GFR (MDRD) Non-Af BUN/Creatinine Ratio Glucose Calcium Troponin I High Sens Urine Color Urine Clarity Urine pH Ur Specific [place] Urine Protein Urine Glucose (UA) Urine Ketones Urine Occult Blood Urine Nitrite Urine Bilirubin Urine Urobilinogen Ur Leukocyte Esterase Urine RBC Urine WBC Ur Squamous Epith Cells Urine Bacteria Urine Mucus Urine Opiates Screen Urine Methadone Screen Ur Barbiturates Screen Ur Phencyclidine Scrn Ur Amphetamines Screen U Methamphetamin-MDMA U Benzodiazepines Scrn Urine Cocaine Screen U Cannabinoids Screen Ur Drug Screen Comment Ethyl Alcohol < 3.0 POC Glucose 77 104 07/06/21 07/06/21 07/06/21 08:52 09:19 09:19 WBC RBC Hgb Hct MCV MCH MCHC RDW Std Deviation RDW Coeff of Brandi Plt Count MPV Immature Gran % (Auto) Neut % (Auto) Lymph % (Auto) [place] % (Auto) Eos % (Auto) Baso % (Auto) Absolute Neuts (auto) Absolute Lymphs (auto) Nucleated RBC % Sodium Potassium Chloride Carbon Dioxide Anion Gap BUN Creatinine Estim Creat Clear Calc Est GFR (MDRD) Af Amer Est GFR (MDRD) Non-Af BUN/Creatinine Ratio Glucose Calcium Troponin I High Sens Urine Color Yellow Urine Clarity Sl. Cloudy Urine pH 6.0 Ur Specific [place] 1.015 Urine Protein 30 H Urine Glucose (UA) Normal Urine Ketones 5 H Urine Occult Blood Negative Urine Nitrite Negative Urine Bilirubin Negative Urine Urobilinogen 1 H Ur Leukocyte Esterase 25 H Urine RBC 0 SEEN Urine WBC 0-5 SEEN Ur Squamous Epith Cells 0-5 SEEN Urine Bacteria RARE Urine Mucus RARE Urine Opiates Screen NEGATIVE Urine Methadone Screen NEGATIVE Ur Barbiturates Screen NEGATIVE Ur Phencyclidine Scrn NEGATIVE Ur Amphetamines Screen POSITIVE H U Methamphetamin-MDMA POSITIVE H U Benzodiazepines Scrn NEGATIVE Urine Cocaine Screen POSITIVE H U Cannabinoids Screen POSITIVE H Ur Drug Screen Comment Ethyl Alcohol POC Glucose 100 Radiography Diagnostic Testing: Clinical Impression(s) from Imaging Studies Chest X-Ray 07/06/21 05:14 IMPRESSION: No demonstrated acute cardiopulmonary process. Electronically Signed: Sparkle Newton MD at 5:52 EST , Brain CT 07/06/21 05:21 IMPRESSION: Normal unenhanced CT scan of the brain. Electronically Signed: Bishop Brito DO at 5:53 EST , <Ronald Rhodes MD - Last Filed: 07/06/21 09:52> [facility] MDM Narrative Medical decision making narrative: Dr. Rhodes: Patient endorsed to me by Dr. Figueroa to check the urinalysis and urine for drugs of abuse on this patient who is mental status change had resolved. His urinalysis shows no evidence of infection. While there is 25 leukocyte esterase, there are 0-5 WBCs. I do not feel antibiotics are indicated. His urine for drugs of abuse was positive for polysubstance abuse. His hypoglycemia has resolved. Upon repeat examination, he is awake, alert, and ready for discharge. At this point in time, he will follow up with his primary care physician. Return instructions to the emergency department were reviewed. Disposition is discharged home in stable condition. Lab Data Labs: Laboratory Results - last 24 hr 07/06/21 07/06/21 07/06/21 05:03 05:20 05:20 WBC 15.0 H RBC 5.04 Hgb 16.3 Hct 44.6 MCV 88.5 MCH 32.3 H MCHC 36.5 H RDW Std Deviation 38.3 RDW Coeff of Brandi 11.9 Plt Count 227 MPV 9.3 Immature Gran % (Auto) 0.300 Neut % (Auto) 82.4 H Lymph % (Auto) 12.5 L [place] % (Auto) 4.1 Eos % (Auto) 0.5 Baso % (Auto) 0.2 Absolute Neuts (auto) 12.4 H Absolute Lymphs (auto) 1.87 Nucleated RBC % 0 Sodium 136 Potassium 3.5 Chloride 101 Carbon Dioxide 33.0 H Anion Gap 2 L BUN 11 Creatinine 1.01 Estim Creat Clear Calc 103.51 Est GFR (MDRD) Af Amer 103 Est GFR (MDRD) Non-Af 85 BUN/Creatinine Ratio 10.9 Glucose 55 L Calcium 9.3 Troponin I High Sens 16 Urine Color Urine Clarity Urine pH Ur Specific [place] Urine Protein Urine Glucose (UA) Urine Ketones Urine Occult Blood Urine Nitrite Urine Bilirubin Urine Urobilinogen Ur Leukocyte Esterase Urine RBC Urine WBC Ur Squamous Epith Cells Urine Bacteria Urine Mucus Urine Opiates Screen Urine Methadone Screen Ur Barbiturates Screen Ur Phencyclidine Scrn Ur Amphetamines Screen U Methamphetamin-MDMA U Benzodiazepines Scrn Urine Cocaine Screen U Cannabinoids Screen Ur Drug Screen Comment Ethyl Alcohol POC Glucose 71 L 07/06/21 07/06/21 07/06/21 05:20 06:06 06:40 WBC RBC Hgb Hct MCV MCH MCHC RDW Std Deviation RDW Coeff of Brandi Plt Count MPV Immature Gran % (Auto) Neut % (Auto) Lymph % (Auto) [place] % (Auto) Eos % (Auto) Baso % (Auto) Absolute Neuts (auto) Absolute Lymphs (auto) Nucleated RBC % Sodium Potassium Chloride Carbon Dioxide Anion Gap BUN Creatinine Estim Creat Clear Calc Est GFR (MDRD) Af Amer Est GFR (MDRD) Non-Af BUN/Creatinine Ratio Glucose Calcium Troponin I High Sens Urine Color Urine Clarity Urine pH Ur Specific [place] Urine Protein Urine Glucose (UA) Urine Ketones Urine Occult Blood Urine Nitrite Urine Bilirubin Urine Urobilinogen Ur Leukocyte Esterase Urine RBC Urine WBC Ur Squamous Epith Cells Urine Bacteria Urine Mucus Urine Opiates Screen Urine Methadone Screen Ur Barbiturates Screen Ur Phencyclidine Scrn Ur Amphetamines Screen U Methamphetamin-MDMA U Benzodiazepines Scrn Urine Cocaine Screen U Cannabinoids Screen Ur Drug Screen Comment Ethyl Alcohol < 3.0 POC Glucose 77 104 07/06/21 07/06/21 07/06/21 08:52 09:19 09:19 WBC RBC Hgb Hct MCV MCH MCHC RDW Std Deviation RDW Coeff of Brandi Plt Count MPV Immature Gran % (Auto) Neut % (Auto) Lymph % (Auto) [place] % (Auto) Eos % (Auto) Baso % (Auto) Absolute Neuts (auto) Absolute Lymphs (auto) Nucleated RBC % Sodium Potassium Chloride Carbon Dioxide Anion Gap BUN Creatinine Estim Creat Clear Calc Est GFR (MDRD) Af Amer Est GFR (MDRD) Non-Af BUN/Creatinine Ratio Glucose Calcium Troponin I High Sens Urine Color Yellow Urine Clarity Sl. Cloudy Urine pH 6.0 Ur Specific [place] 1.015 Urine Protein 30 H Urine Glucose (UA) Normal Urine Ketones 5 H Urine Occult Blood Negative Urine Nitrite Negative Urine Bilirubin Negative Urine Urobilinogen 1 H Ur Leukocyte Esterase 25 H Urine RBC 0 SEEN Urine WBC 0-5 SEEN Ur Squamous Epith Cells 0-5 SEEN Urine Bacteria RARE Urine Mucus RARE Urine Opiates Screen NEGATIVE Urine Methadone Screen NEGATIVE Ur Barbiturates Screen NEGATIVE Ur Phencyclidine Scrn NEGATIVE Ur Amphetamines Screen POSITIVE H U Methamphetamin-MDMA POSITIVE H U Benzodiazepines Scrn NEGATIVE Urine Cocaine Screen POSITIVE H U Cannabinoids Screen POSITIVE H Ur Drug Screen Comment Ethyl Alcohol POC Glucose 100 Radiography Diagnostic Testing: Clinical Impression(s) from Imaging Studies Chest X-Ray 07/06/21 05:14 IMPRESSION: No demonstrated acute cardiopulmonary process. Electronically Signed: Sparkle Newton MD at 5:52 EST , Brain CT 07/06/21 05:21 IMPRESSION: Normal unenhanced CT scan of the brain. Electronically Signed: Bishop Brito DO at 5:53 EST , Discharge Plan Triage Chief Complaint: Hypoglycemia ED Provider: Zachary Figueroa Dx/Rx/DC Orders Clinical Impression: Hypoglycemia Instructions: ED Diabetic Insulin Reaction Prescriptions: No Action nitroglycerin 0.4 mg tablet, sublingual 0.4 mg SUBLINGUAL Q5M PRN (Reason: Chest Pain) Qty: 25 RF: 3 (DME) lancets [FreeStyle Lancets] 28 gauge misc See Dose Instructions .Route .MEDSUPPLY Qty: 200 RF: 3 (DME) Handicap Placard See Rx Instructions .Route .MEDSUPPLY Qty: 1 RF: 0 carvedilol 12.5 mg tablet 12.5 mg PO BID Qty: 60 RF: 11 pantoprazole 40 mg tablet,delayed release (DR/EC) 40 mg PO DAILY Qty: 90 RF: 3 Humalog Mix 50-50 KwikPen 100 unit/mL (50-50) insulin pen 45 unit SC BID 90 Days Qty: 81 RF: 1 sennosides-docusate sodium [Senna with Docusate Sodium] 8.6-50 mg tablet 1 tab-cap PO BID Qty: 180 RF: 2 aripiprazole 10 mg tablet 10 mg PO QHS Qty: 90 RF: 3 budesonide-formoterol [Symbicort] 160-4.5 mcg/actuation HFA aerosol inhaler 2 puff INHALATION Q12H Qty: 10.2 RF: 3 (DME) blood pressure monitor Kit See Rx Instructions .ROUTE .MEDSUPPLY Qty: 1 RF: 0 (DME) blood sugar diagnostic Strip See Rx Instructions .ROUTE .MEDSUPPLY Qty: 100 RF: 5 aspirin 81 mg tablet,delayed release (DR/EC) 81 mg PO ONCE Qty: 30 RF: 11 atorvastatin 40 mg tablet 40 mg PO DAILY Qty: 30 RF: 11 Hold Instructions: Elevated LFT-Seeing Dr. Escobedo 03/2021 clopidogrel 75 mg tablet 75 mg PO DAILY Qty: 30 RF: 11 furosemide 40 mg tablet 40 mg PO BID Qty: 60 RF: 11 losartan 25 mg tablet 25 mg PO DAILY Qty: 30 RF: 11 magnesium oxide 400 mg (241.3 mg magnesium) tablet 400 mg PO BID Qty: 60 RF: 11 potassium chloride 20 mEq tablet extended release 20 meq PO DAILY Qty: 30 RF: 11 spironolactone 25 mg tablet 25 mg PO DAILY Qty: 30 RF: 11 (DME) pen needle, diabetic [1st Tier Unifine Pentips] 31 gauge x 5/16 needle See Rx Instructions .ROUTE .MEDSUPPLY Qty: 100 RF: 3 (DME) nebulizer accessories Misc See Rx Instructions .ROUTE .MEDSUPPLY Qty: 1 RF: 0 (DME) Aeroneb Go Nebulizer Misc See Rx Instructions .ROUTE .MEDSUPPLY Qty: 1 RF: 0 albuterol sulfate 2.5 mg /3 mL (0.083 %) solution for nebulization 2.5 mg INHALATION Q2H PRN PRN (Reason: dyspnea, wheezing) Qty: 90 RF: 3 albuterol sulfate 90 mcg/actuation HFA aerosol inhaler 1 puff INHALATION Q6H PRN PRN (Reason: Sob &/Or Wheezing) Qty: 8.5 RF: 1 metformin 1,000 mg tablet,ER [email or web address] 24 hr 2,000 mg PO QHS 90 Days Qty: 180 RF: 3 Primary Care Provider: Tammie Nieves Referrals: Tammie Nieves MD [Primary Care Provider] - Disposition Disposition: Home, Self Care
--- NOTE | 2021-07-06 05:21 | CT_ITS ---
STUDY: CT BRAIN WITHOUT CONTRAST REASON FOR EXAM: Male, 45 years old. headache RADIATION DOSAGE (If Supplied By Facility): CTDIvol = ( 44.99 ) mGy, DLP = ( 829.85 ) mGycm TECHNIQUE: Transaxial CT imaging of the brain was performed without administration of intravenous contrast material. Individualized dose optimization techniques were used for this CT. COMPARISON: No relevant priors. FINDINGS: Normal soft tissue structures. Normal calvarium. Normal size ventricles and extra-axial spaces for the patient''s age. Normal white matter tracts of the cerebral hemispheres. Normal basal ganglia and thalami. Normal brainstem. Normal cerebellum. There is no intracranial hemorrhage. There are no findings of an acute ischemic infarction. Normal visualized paranasal sinuses. CT/Brain/Head without Contrast IMPRESSION: Normal unenhanced CT scan of the brain. Electronically Signed: Bishop Brito DO at 5:53 EST ,
[2021-07-06 05:27] LABS: Absolute Lymphocyte Count 1.87 X10^3/uL (0.83-4.51); Absolute Neutrophil Count 12.4 X10^3/uL (2.0-7.7); Basophil# 0.03 X10^3/uL; Basophil% 0.2 % (0-1); Eosinophil# 0.08 X10^3/uL; Eosinophils% 0.5 % (0-5); Hematocrit 44.6 % (40-54); Hemoglobin 16.3 g/dL (13.0-16.5); Lymphocyte # 1.87 X10^3/ul (0.83-4.51); Lymphocyte % 12.5 % (19-41); Mean Corp Hgb Conc 36.5 g/dL (32-36); Mean Corpuscular Hgb 32.3 pg (27.0-32.0); Mean Corpuscular Volume 88.5 fL (80-94); Mean Platelet Vol. 9.3 fl (6.2-12.0); Monocyte# 0.62 X10^3/uL; Monocyte% 4.1 % (0-10); NRBC Flagged by Analyzer 0 % (0-5); Neutrophil # 12.36 X10^3/uL (2.7-7.7); Neutrophil % 82.4 % (47-70); Platelet Count 227 K/mm3 (150-450); RBC Distribution Width CV 11.9 % (11.6-14.6); RBC Distribution Width SD 38.3 fl (35.1-43.9); Red Blood Count 5.04 M/mm3 (4.6-6.2)
[2021-07-06 05:48] LABS: Alcohol, Blood (Medical)-Serum < 3.0 mg/dL; Anion Gap 2 (5-15); BUN 11 mg/dL (7-18); BUN/Creat Ratio 10.9 RATIO (10-20); Calcium,Total 9.3 mg/dL (8.5-10.1); Chloride 101 mmol/L (98-107); Creatinine, Serum 1.01 mg/dL (0.70-1.30); EST Glomerular Filtration Rate 85 mL/min (>60); Est Glom Filt Rate - Afr Amer 103 mL/min (>60); Estimated Creatinine Clearance 103.51 ml/min; Glucose 55 mg/dL (74-106); Potassium 3.5 mmol/L (3.5-5.1); Sodium Level 136 mmol/L (136-145); Troponin-I HS 16 pg/mL (3.0-78.0)
[2021-07-06 06:11] LABS: Bedside Glucose 77 mg/dL (74-106)
[2021-07-06 06:46] LABS: Bedside Glucose 104 mg/dL (74-106)
[2021-07-06 08:56] LABS: Bedside Glucose 100 mg/dL (74-106)
[2021-07-06 09:22] VITALS: O2SAT 98
[2021-07-06 09:23] LABS: Red Blood Cells-Urine 0 SEEN /hpf (0-5)
[2021-07-06 09:38] LABS: Color, Urine Yellow (Yellow); Glucose, Dipstick Normal (Normal); Ketone-Dipstick 5 mg/dl (Negative); Leukocyte Esterase-Dipstick 25 /ul (Negative); Nitrite-Dipstick Negative (Negative); Occult Blood-Urine Negative /ul (Negative); Protein-Dipstick 30 mg/dl (Negative); Specific Gravity, Urine 1.015 (1.002-1.030); Urine Bilirubin Dipstick Negative (Negative); Urine Clarity Sl. Cloudy (Clear); Urine Urobilinogen 1 mg/dl (Normal)
[2021-07-06 09:40] LABS: Squamous Epithelial Cells - UA 0-5 SEEN /hpf (0-5); White Blood Cells 0-5 SEEN /hpf (0-5)
[2021-07-06 09:41] LABS: Amphetamine Urine VISTA POSITIVE (<1000 ng/mL); Barbiturate Urine VISTA NEGATIVE (< 200 ng/mL); Benzodiazepine Urine VISTA NEGATIVE (< 200 ng/mL); Cocaine Urine VISTA POSITIVE (< 300 ng/mL); Ecstacy Urine VISTA POSITIVE (< 500 ng/mL); Methadone Urine VISTA NEGATIVE (< 300 ng/mL); PCP Urine VISTA NEGATIVE (< 25 ng/mL); THC Urine VISTA POSITIVE (< 50 ng/mL); Vista UDS pH Range 6
[2021-07-06 09:42] LABS: Bacteria RARE /hpf (None Seen); Mucous, Urine RARE /hpf (<or=2+)
[2021-07-06 09:57] VITALS: BP 118/69; PULSE 87; RESP 16; O2SAT 97
--- NOTE | 2021-07-07 10:40 | CASEMGMT ---
ILEANA GUAJARDO ED follow-up: Date of ER visit: 07/06/2021 Presenting ER complaint: hypoglycemia RN CASANDRA placed call to patient's telephone number listed on demographics with no answer. Unable to leave voice message. ILEANA Benites CM
== END 2021-07-06 09:57 | disposition home or self-care (01) ==
PROVIDERS: Emergency Provider Student in an Organized Health Care Education/Training Program; PCP Internal Medicine; Visit Provider Student in an Organized Health Care Education/Training Program
DX: E11.649 Type 2 diabetes mellitus with hypoglycemia without coma (principal); I11.0 Hypertensive heart disease with heart failure; I50.22 Chronic systolic (congestive) heart failure; F31.9 Bipolar disorder, unspecified; E11.42 Type 2 diabetes mellitus with diabetic polyneuropathy; Z79.4 Long term (current) use of insulin; I25.10 Atherosclerotic heart disease of native coronary artery without angina pectoris; I25.5 Ischemic cardiomyopathy; E78.5 Hyperlipidemia, unspecified; I25.2 Old myocardial infarction; Z95.810 Presence of automatic (implantable) cardiac defibrillator; Z79.899 Other long term (current) drug therapy; Z95.5 Presence of coronary angioplasty implant and graft
CPT/HCPCS: 70450; 71045; 80048; 80307; 81001; 82077; 82962; 84484; 85025; 93005; 99284; A4216

== ENCOUNTER 2021-08-30 05:10 | Emergency (ER) | payer MEDICAID, SELFPAY ==
[2020-04-10 09:35] VITALS: BMI 25.9
[2021-08-30 05:11] VITALS: BP 130/86; PULSE 47; PULSE 56; RESP 17; RESP 19; TEMP 37.1; O2SAT 100; BMI 33.0
[2021-08-30 05:21] LABS: Bedside Glucose 121 mg/dL (74-106)
--- NOTE | 2021-08-30 05:26 | EX.ED.DYSGE1 ---
HPI History of Present Illness Chief Complaint: Hypoglycemia Informant: patient and EMS Narrative Narrative: Presents by EMS from home for hypoglycemia unresponsive. Patient reports cough from his girlfriend. Diabetic on insulin and metformin. He took Humalog 45 units at 9 PM this was 8 hours ago. That is his typical dose. Denies recent vomiting or diarrhea. Denies any urine symptoms no cough. Status post T10 by EMS. Glucose up to 194 next check was down to 140s. Patient is feeling better states he is just tired and wants to sleep. He does admit to marijuana use this evening for which he does frequently. Denies alcohol use. Records similar event in June of this year. Significant past medical history coronary disease CHF with an AICD. Prior similar symptoms: Yes PFSH PFS Medical History Anxiety and depression Atherosclerosis of coronary artery of [place] heart without angina pectoris Bipolar I disorder with depression Chronic constipation Chronic systolic CHF (congestive heart failure) Depression Diabetes Elevated liver enzymes Essential hypertension Flu vaccine need Hepatitis B History of non-ST elevation myocardial infarction (NSTEMI) (07/2018) Hyperlipidemia ICD (implantable cardioverter-defibrillator) discharge Ischemic cardiomyopathy Nicotine dependence Peripheral neuropathy Polyneuropathy due to type 2 diabetes mellitus Polysubstance abuse Severe left ventricular systolic dysfunction Type 2 diabetes mellitus Home Medications blood pressure monitor #1 ea 05/31/19 [Rx Last Taken Unknown] atorvastatin 40 mg tablet 40 mg PO DAILY #30 tab 07/09/20 [Rx Last Taken Unknown] Handicap Placard #1 ea 07/23/20 [Rx Last Taken Unknown] albuterol sulfate 2.5 mg INHALATION Q2H PRN PRN #90 ml 04/22/21 [Rx Last Taken Unknown] nebulizer accessories #1 ea 04/22/21 [Rx Last Taken Unknown] nebulizers #1 ea 04/22/21 [Rx Last Taken Unknown] Symbicort 160 mcg-4.5 mcg/actuation HFA aerosol inhaler 2 puff INHALATION Q12H #10.2 g NS 07/30/21 [Rx Last Taken Unknown] albuterol sulfate 90 mcg/actuation aerosol inhaler 1 puff INHALATION Q6H PRN PRN #8.5 g 07/30/21 [Rx Last Taken Unknown] aripiprazole 10 mg tablet 10 mg PO QHS #90 tab 07/30/21 [Rx Last Taken Unknown] aspirin 81 mg tablet,delayed release 81 mg PO ONCE #30 tab 07/30/21 [Rx Last Taken Unknown] blood sugar diagnostic #100 ea 07/30/21 [Rx Last Taken Unknown] carvedilol 12.5 mg tablet 12.5 mg PO BID #60 tab 07/30/21 [Rx Last Taken Unknown] clopidogrel 75 mg tablet 75 mg PO DAILY #30 tab 07/30/21 [Rx Last Taken Unknown] furosemide 40 mg tablet 40 mg PO BID #30 tab 07/30/21 [Rx Last Taken Unknown] insulin lispro protamine-lispro 100 unit/mL (50-50) subcutaneous pen 45 unit SC BID 90 Days #81 ml 07/30/21 [Rx Last Taken Unknown] lancets 28 gauge #200 ea 07/30/21 [Rx Last Taken Unknown] losartan 25 mg tablet 25 mg PO DAILY #30 tab 07/30/21 [Rx Last Taken Unknown] magnesium oxide 400 mg (241.3 mg magnesium) tablet 400 mg PO BID #60 tab 07/30/21 [Rx Last Taken Unknown] metformin 1,000 mg 24 hr tablet,extended release 1,000 mg PO BID #180 tab 07/30/21 [Rx Last Taken Unknown] nitroglycerin 0.4 mg sublingual tablet 0.4 mg SUBLINGUAL Q5M PRN #25 tab 07/30/21 [Rx Last Taken Unknown] pantoprazole 40 mg tablet,delayed release 40 mg PO DAILY #90 tab 07/30/21 [Rx Last Taken Unknown] pen needle, diabetic 31 gauge x 5/16 #100 ea 07/30/21 [Rx Last Taken Unknown] potassium chloride 20 mEq tablet,extended release 20 meq PO DAILY #30 tablet.er 07/30/21 [Rx Last Taken Unknown] sennosides 8.6 mg-docusate sodium 50 mg tablet 1 tab-cap PO BID #180 tab 07/30/21 [Rx Last Taken Unknown] spironolactone 25 mg tablet 25 mg PO DAILY #30 tab 07/30/21 [Rx Last Taken Unknown] Allergy/AdvReac Type Severity Reaction Status Date / Time No Known Allergies Allergy Verified 08/30/21 05:18 Family History Mother CAD (coronary artery disease) Diabetes Hypertension Myocardial infarction Asthma Father CAD (coronary artery disease) Diabetes Hypertension Myocardial infarction Brother Hypertension Asthma Grandfather Asthma COPD (chronic obstructive pulmonary disease) Surgical History History of appendectomy History of coronary artery stent placement (04/30/18) History of left heart catheterization (12/05/18) Presence of automatic implantable cardioverter-defibrillator (06/28/17) Social History Smoking Status: Current every day smoker tobacco type: cigarettes Tobacco: How many years used: 10 Smokeless tobacco user: other Electronic Cigarette Use: not used second hand exposure: Yes alcohol intake: never substance use type: marijuana caffeine: Yes Type: carbonated beverages and tea ROS ROS ED Constitutional Constitutional ED: Reports other Details: Fatigue ; Denies chills, fever(s) or sweats Eyes Eyes: Denies change in vision ENT ENT ED: Denies dysphagia or sore throat Cardiovascular Cardiovascular: Denies chest pain, leg edema, palpitations or racing heartbeat Respiratory/Chest Respiratory/Chest: Denies cough, dyspnea or dyspnea on exertion Gastrointestinal Gastrointestinal: Denies abdominal pain, diarrhea, nausea or vomiting Genitourinary Genitourinary ED: Denies dysuria, hematuria or urinary frequency Musculoskeletal Musculoskeletal: Denies back pain, extremity pain or neck pain Integumentary Denies rash or wounds Neurologic Neurologic: Denies headache(s), paresthesias or weakness EXAM Physical Exam Const Vital Signs: 08/30/21 05:11 08/30/21 05:19 08/30/21 05:30 Temperature 98.7 F Temperature Source Temporal Pulse Rate 47 L 78 Respiratory Rate 19 H Respiratory Effort Normal Respiratory Pattern Normal Blood Pressure 130/86 H 145/80 H Blood Pressure Mean 100 101 Pulse Ox 100 Oxygen Delivery Method Room Air Positive well nourished and well developed Constitutional Narrative: Somnolent awakens to command General Appearance ED: well developed and NAD HEENT Reports moist mucous membranes normocephalic and atraumatic Eyes PERRL, EOMs intact bilaterally and conjunctivae normal General Eye ED: Yes normal appearance of both eyes Neck no lymphadenopathy and supple General: Negative for tenderness Chest Wall Chest: Negative for tenderness Resp normal respiratory effort and normal air movement Effort and Inspection: symmetric chest movement; Negative for respiratory distress Cardio regular rate, regular rhythm and no murmurs Peripheral Pulses: pulses 2+ throughout GI normal to inspection, nondistended, normoactive bowel sounds and non-tender Palpation: Negative for guarding or rebound tenderness present Back/Spine no CVA tenderness and no thoracic nor lumbar tenderness Extremity normal to inspection General Extremety ED: Negative for edema or tenderness General Extremity: Negative for edema Neuro oriented x3 and no sensory deficits noted Sensorium / Orientation: awake and alert Skin no rashes or lesions noted and no wounds MDM MDM MDM Narrative Medical decision making narrative: Glucose on arrival 121. Given regular diet with a sandwich and cookies. He will be monitored. 0600: Patient ate half a sandwich, 150, orange juice, recheck glucose 84. He is encouraged to finish his sandwich cookie and additional orange juice will be given. He will continue to be monitored. Significant other is present states confirmed he is on the mix insulin likely Humulin. States that his medications were increased 2 months ago. 0630: Glucose up to 103. Currently trending up. We will plan for additional check at 7 AM. If stable will discharge. Continue other states has a doctor's appointment this morning with PCP. They will discuss his insulin regimen. Lab Data Attestation: I reviewed the patient's lab results. Labs: Laboratory Results - last 24 hr 08/30/21 08/30/21 05:17 05:58 POC Glucose 121 H 85 Discharge Plan Triage Chief Complaint: Hypoglycemia ED Provider: Brady Colvin Dx/Rx/DC Orders Clinical Impression: Hypoglycemia, Type 2 diabetes mellitus, History of marijuana use Instructions: Hypoglycemia (Low Blood Sugar) Prescriptions: No Action (DME) Handicap Placard See Rx Instructions .Route .MEDSUPPLY Qty: 1 RF: 0 (DME) blood pressure monitor Kit See Rx Instructions .ROUTE .MEDSUPPLY Qty: 1 RF: 0 atorvastatin 40 mg tablet 40 mg PO DAILY Qty: 30 RF: 11 Hold Instructions: Elevated LFT-Seeing Dr. Escobedo 03/2021 (DME) nebulizer accessories Misc See Rx Instructions .ROUTE .MEDSUPPLY Qty: 1 RF: 0 (DME) Aeroneb Go Nebulizer Misc See Rx Instructions .ROUTE .MEDSUPPLY Qty: 1 RF: 0 albuterol sulfate 2.5 mg /3 mL (0.083 %) solution for nebulization 2.5 mg INHALATION Q2H PRN PRN (Reason: dyspnea, wheezing) Qty: 90 RF: 3 albuterol sulfate 90 mcg/actuation HFA aerosol inhaler 1 puff INHALATION Q6H PRN PRN (Reason: Sob &/Or Wheezing) Qty: 8.5 RF: 1 aripiprazole 10 mg tablet 10 mg PO QHS Qty: 90 RF: 3 aspirin 81 mg tablet,delayed release (DR/EC) 81 mg PO ONCE Qty: 30 RF: 11 (DME) blood sugar diagnostic Strip See Rx Instructions .ROUTE .MEDSUPPLY Qty: 100 RF: 5 carvedilol 12.5 mg tablet 12.5 mg PO BID Qty: 60 RF: 11 clopidogrel 75 mg tablet 75 mg PO DAILY Qty: 30 RF: 11 furosemide 40 mg tablet 40 mg PO BID Qty: 30 RF: 11 Humalog Mix 50-50 KwikPen 100 unit/mL (50-50) insulin pen 45 unit SC BID 90 Days Qty: 81 RF: 3 (DME) lancets [FreeStyle Lancets] 28 gauge misc See Dose Instructions .Route .MEDSUPPLY Qty: 200 RF: 3 losartan 25 mg tablet 25 mg PO DAILY Qty: 30 RF: 11 magnesium oxide 400 mg (241.3 mg magnesium) tablet 400 mg PO BID Qty: 60 RF: 11 metformin 1,000 mg tablet,ER [place].retention 24 hr 1,000 mg PO BID Qty: 180 RF: 3 nitroglycerin 0.4 mg tablet, sublingual 0.4 mg SUBLINGUAL Q5M PRN (Reason: Chest Pain) Qty: 25 RF: 3 pantoprazole 40 mg tablet,delayed release (DR/EC) 40 mg PO DAILY Qty: 90 RF: 3 (DME) pen needle, diabetic [1st Tier Unifine Pentips] 31 gauge x 5/16 needle See Rx Instructions .ROUTE .MEDSUPPLY Qty: 100 RF: 3 potassium chloride 20 mEq tablet extended release 20 meq PO DAILY Qty: 30 RF: 11 sennosides-docusate sodium [Senna with Docusate Sodium] 8.6-50 mg tablet 1 tab-cap PO BID Qty: 180 RF: 2 spironolactone 25 mg tablet 25 mg PO DAILY Qty: 30 RF: 11 budesonide-formoterol [Symbicort] 160-4.5 mcg/actuation HFA aerosol inhaler 2 puff INHALATION Q12H Qty: 10.2 RF: 3 Primary Care Provider: Tammie Nieves Referrals: Tammie Nieves MD [Primary Care Provider] - Keep Barbara appointment Activity Restrictions/Additional Instructions: Discussed with your doctor today about your insulin regimen with second hypoglycemic episode since increasing insulin 2 months ago. Disposition Disposition: Home, Self Care Discharge Date/Time: 08/30/21 07:08
[2021-08-30 05:30] VITALS: BP 145/80; PULSE 78
[2021-08-30 06:06] LABS: Bedside Glucose 85 mg/dL (74-106)
[2021-08-30 06:36] LABS: Bedside Glucose 103 mg/dL (74-106)
[2021-08-30 06:55] VITALS: BP 146/97; PULSE 66; RESP 19; O2SAT 98
[2021-08-30 07:01] LABS: Bedside Glucose 114 mg/dL (74-106)
== END 2021-08-30 07:08 | disposition home or self-care (01) ==
PROVIDERS: Emergency Provider Emergency Medicine; PCP Internal Medicine; Visit Provider Emergency Medicine
DX: E11.649 Type 2 diabetes mellitus with hypoglycemia without coma (principal); I11.0 Hypertensive heart disease with heart failure; I50.22 Chronic systolic (congestive) heart failure; E11.42 Type 2 diabetes mellitus with diabetic polyneuropathy; Z79.4 Long term (current) use of insulin; I25.10 Atherosclerotic heart disease of native coronary artery without angina pectoris; E78.5 Hyperlipidemia, unspecified; I25.5 Ischemic cardiomyopathy; F17.210 Nicotine dependence, cigarettes, uncomplicated; Z95.810 Presence of automatic (implantable) cardiac defibrillator; I25.2 Old myocardial infarction; Z79.82 Long term (current) use of aspirin; Z79.02 Long term (current) use of antithrombotics/antiplatelets; Z79.899 Other long term (current) drug therapy
CPT/HCPCS: 82962; 99284

== ENCOUNTER 2021-10-27 10:12 | Emergency (ER) | payer MEDICAID, SELFPAY ==
[2020-04-10 09:35] VITALS: BMI 25.9
[2021-10-27 10:13] VITALS: BP 139/111; PULSE 91; RESP 18; TEMP 36.6; O2SAT 100; BMI 29.7
--- NOTE | 2021-10-27 10:37 | RAD_ITS ---
STUDY: X-RAY - RIGHT HAND REASON FOR EXAM: Male, 46 years old. Injury, laceration index finger TECHNIQUE: 4 view(s) of the hand. COMPARISON: Comparison is made with prior study dated 01/02/2019. FINDINGS: Normal radiocarpal articulation. Normal distal radioulnar joint. Normal visualized carpal bones. Normal carpal articulations Normal carpometacarpal articulation of the thumb. Normal second through fifth carpometacarpal joints. Normal metacarpi. Normal metacarpophalangeal joint of the thumb. Normal interphalangeal joint of the thumb. Normal proximal and distal phalanges of the thumb. Normal metacarpophalangeal joints of the second through fifth fingers. Normal proximal and distal interphalangeal joints of the second through fifth fingers. Normal phalanges of the second through fifth fingers. Diffuse soft tissue swelling overlying the index finger. No radiopaque foreign body is seen. RAD/Hand Min 3 Views IMPRESSION: Diffuse soft tissue swelling overlying the index finger. No radiopaque foreign body is seen. Electronically Signed: Nishant Masterson MD at 11:13 EDT ,
--- NOTE | 2021-10-27 10:38 | EDS_ITS ---
HPI History of Present Illness Chief Complaint: Suture Remv Detail of Chief Complaint: Suture removal from the right index finger Informant: patient Narrative Narrative: Patient presents to the emergency department complaint of requiring suture removal from his right index finger. Patient tells me that about 2 weeks ago he lacerated his finger with a knife. He cannot tell me what he was cutting at the time. Patient tells me he was seen in the emergency department here and had suture repair. He states that over the last several days has had increased pain and swelling and has been keeping him up at night. He denies any drainage from the wound. Patient up-to-date on tetanus. Patient [id number]. In reviewing patient's last visit it is noted that he was under police custody when he came to the emergency department and apparently had fallen and injured his hand on something during the fall. No x-rays were performed at that time. [facility] Medical History Anxiety and depression Atherosclerosis of coronary artery of [place] heart without angina pectoris Bipolar I disorder with depression Chronic constipation Chronic systolic CHF (congestive heart failure) Depression Diabetes Elevated liver enzymes Essential hypertension Flu vaccine need Hepatitis B History of non-ST elevation myocardial infarction (NSTEMI) (07/2018) Hyperlipidemia ICD (implantable cardioverter-defibrillator) discharge Ischemic cardiomyopathy Nicotine dependence Peripheral neuropathy Polyneuropathy due to type 2 diabetes mellitus Polysubstance abuse Severe left ventricular systolic dysfunction Type 2 diabetes mellitus Home Medications blood pressure monitor #1 ea 05/31/19 [Rx Last Taken Unknown] atorvastatin 40 mg tablet 40 mg PO DAILY #30 tabs 07/09/20 [Rx Last Taken Unknown] Handicap Placard #1 ea 07/23/20 [Rx Last Taken Unknown] albuterol sulfate 2.5 mg (3 mL) inhalation Q2H PRN PRN dyspnea, wheezing #90 mL 04/22/21 [Rx Last Taken Unknown] nebulizer accessories #1 ea 04/22/21 [Rx Last Taken Unknown] nebulizers (Aeroneb Go Nebulizer) #1 ea 04/22/21 [Rx Last Taken Unknown] Symbicort 160 mcg-4.5 mcg/actuation HFA aerosol inhaler (budesonide-formoterol) 2 puff inhalation Q12H #10.2 grams 07/30/21 [Rx Last Taken Unknown] albuterol sulfate 90 mcg/actuation aerosol inhaler 1 puff inhalation Q6H PRN PRN Sob &/Or Wheezing #8.5 grams 07/30/21 [Rx Last Taken Unknown] aripiprazole 10 mg tablet 10 mg PO QHS #90 tabs 07/30/21 [Rx Last Taken Unknown] aspirin 81 mg tablet,delayed release 81 mg PO ONCE #30 tabs 07/30/21 [Rx Last Taken Unknown] blood sugar diagnostic #100 ea 07/30/21 [Rx Last Taken Unknown] carvedilol 12.5 mg tablet 12.5 mg PO BID #60 tabs 07/30/21 [Rx Last Taken Unknown] clopidogrel 75 mg tablet 75 mg PO DAILY heart #30 tabs 07/30/21 [Rx Last Taken Unknown] furosemide 40 mg tablet 40 mg PO BID #30 tabs 07/30/21 [Rx Last Taken Unknown] insulin lispro protamine-lispro 100 unit/mL (50-50) subcutaneous pen (Humalog Mix 50-50 KwikPen) 45 unit (0.45 mL) subcut BID 3 months #81 mL 07/30/21 [Rx Last Taken Unknown] lancets 28 gauge (FreeStyle Lancets) #200 ea 07/30/21 [Rx Last Taken Unknown] losartan 25 mg tablet 25 mg PO DAILY #30 tabs 07/30/21 [Rx Last Taken Unknown] magnesium oxide 400 mg (241.3 mg magnesium) tablet 400 mg PO BID #60 tabs 07/30/21 [Rx Last Taken Unknown] metformin 1,000 mg 24 hr tablet,extended release 1,000 mg PO BID #180 tabs 07/30/21 [Rx Last Taken Unknown] nitroglycerin 0.4 mg sublingual tablet 0.4 mg sublingual Q5M PRN Chest Pain #25 tabs 07/30/21 [Rx Last Taken Unknown] pantoprazole 40 mg tablet,delayed release 40 mg PO DAILY #90 tabs 07/30/21 [Rx Last Taken Unknown] pen needle, diabetic 31 gauge x 16 (1st Tier Unifine Pentips) #100 ea 07/30/21 [Rx Last Taken Unknown] potassium chloride 20 mEq tablet,extended release 20 meq PO DAILY replacement ##30 07/30/21 [Rx Last Taken Unknown] sennosides 8.6 mg-docusate sodium 50 mg tablet (Senna with Docusate Sodium) 1 tab-cap PO BID #180 tabs 07/30/21 [Rx Last Taken Unknown] spironolactone 25 mg tablet 25 mg PO DAILY #30 tabs 07/30/21 [Rx Last Taken Un known] cephalexin 500 mg capsule 500 mg PO Q6 #40 CAPSULES 10/27/21 [Rx Last Taken Unknown] hydrocodone-acetaminophen 5-325mg 5mg-325mg 1 tab PO Q4H PRN PRN Pain 2 days #10 TABLETS 10/27/21 [Rx Last Taken Unknown] hydrocodone-acetaminophen 5-325mg 5mg-325mg 1 tab PO Q4H PRN PRN Pain 2 days #10 TABLETS 10/27/21 [Rx Last Taken Unknown] Allergy/AdvReac Type Severity Reaction Status Date / Time No Known Allergies Allergy Verified 10/27/21 10:12 Family History Mother CAD (coronary artery disease) Diabetes Hypertension Myocardial infarction Asthma Father CAD (coronary artery disease) Diabetes Hypertension Myocardial infarction Brother Hypertension Asthma Grandfather Asthma COPD (chronic obstructive pulmonary disease) Surgical History History of appendectomy History of coronary artery stent placement (04/30/18) History of left heart catheterization (12/05/18) Presence of automatic implantable cardioverter-defibrillator (06/28/17) Social History Smoking Status: Current every day smoker tobacco type: cigarettes Tobacco: How many years used: 10 Smokeless tobacco user: other Electronic Cigarette Use: not used second hand exposure: Yes alcohol intake: never substance use type: marijuana caffeine: Yes Type: carbonated beverages and tea ROS ROS ED Review of Systems ROS Unobtainable: other Constitutional Constitutional ED: Reports lethargy; Denies chills, fever(s), sweats or weight loss Eyes Eyes: Denies blurry vision, change in vision or diplopia ENT ENT ED: Denies rhinorrhea or sore throat Cardiovascular Cardiovascular: Reports chest pain and racing heartbeat; Denies orthopnea Respiratory/Chest Respiratory/Chest: Reports dyspnea and dyspnea on exertion; Denies cough, orthopnea or sputum Gastrointestinal Gastrointestinal: Denies abdominal pain, diarrhea, nausea or vomiting Genitourinary Genitourinary ED: Denies dysuria, hematuria or urinary frequency Musculoskeletal Musculoskeletal: Reports other Details: Right index finger suture removal request Pain and swelling to right index finger ; Denies arthralgias, back pain, myalgias or neck pain Integumentary Denies abscess, Abrasions or rash Neurologic Neurologic: Denies headache(s) or weakness Psychiatric Psychiatric: Denies anxiety, depression or suicidal thoughts Endocrine Endocrinology: Denies polydipsia, polyphagia or polyuria Hematologic/Lymphatic Hematologic/Lymphatic: Denies easy bleeding, easy bruising or lymphadenopathy Allergic/Immunologic Allergic/Immunologic ED: Denies mouth swelling, tongue swelling or urticaria EXAM Physical Exam Const Vital Signs: 10/27/21 10:13 Temperature 97.8 F Temperature Source Temporal Pulse Rate 91 Respiratory Rate 18 Blood Pressure 139/111 H Blood Pressure Mean 120 Pulse Ox 100 Oxygen Delivery Method Room Air Positive well nourished and well developed General Appearance ED: well developed and NAD HEENT Reports TM's clear and moist mucous membranes normocephalic and atraumatic; Negative for trauma or tenderness Tympanic Membrane ED: Yes TM's clear Eyes PERRL and EOMs intact bilaterally General Eye ED: Negative for pale conjunctiva or scleral icterus Neck no lymphadenopathy, supple and no JVD General: Negative for tenderness Chest Wall inspection of chest normal and palpation of chest normal Chest: Negative for tenderness Resp normal respiratory effort and clear to auscultation bilaterally Effort and Inspection: Negative for respiratory distress or pain with movement Auscultation: Negative for rhonchi, wheezes or diminished lung sounds Cardio regular rate, regular rhythm, S1 normal heart sound, S2 normal heart sound and no murmurs Peripheral Pulses: pulses 2+ throughout GI normal to inspection, nondistended, normoactive bowel sounds, soft to palpation, non-tender, non-distended and no masses Back/Spine no CVA tenderness and no thoracic nor lumbar tenderness Extremity normal to inspection Extremity Narrative: Right index finger-patient has a L-shaped laceration over the dorsum of the PIP joint. There is soft tissue swelling diffusely about the digit with decreased ability to completely extend the digit and some tenderness over the extensor tendon. He is neurovascular intact distally. There is no purulent drainage noted from the wound and there is no significant erythema noted. There are [address] General Extremety ED: Negative for edema General Extremity: Negative for edema Neuro oriented x3, CN's II-XII intact bilaterally, no sensory deficits noted and gait normal Sensorium / Orientation: awake, alert, oriented to person, oriented to place and oriented to time Motor Exam: strength 5/5 throughout and strength abnormal Psych mental status grossly normal Skin no rashes or lesions noted and no wounds MDM MDM MDM Narrative Medical decision making narrative: I was able to easily remove patient's 5 sutures. There is no dehiscence. I compressed the wound and I am unable to express any purulent debris from it. Given that he had a fall at the time of injury documented on prior visit I will x-ray the hand. X-rays showed only soft tissue swelling but no foreign bodies or bony destruction. Patient will be started on Keflex. I will place him in an aluminum splint. I attempted to call orthopedics to arrange close follow-up however did not receive a call back and patient is stating that he needs to leave. Patient will be started on Keflex and given a few [place] for pain. I am concerned that he may have underlying tendon injury given his decreased ability to extend the digit. Also cannot rule out the possibility of infection into the joint although when I read the note from initial physician that evaluated the wound I did not notice any mention of tendon injury or penetration of the laceration into the joint. Patient advised to return if increasing pain, swelling, fever, redness, purulent drainage, or condition should worsen anyway. I will refer patient to [facility] for follow-up. I did speak with Dr. Manzo who was concerned about possibility of a septic joint and recommended that I discussed case with hand surgeon. I will contact hand surgeon at [facility] to arrange follow-up and evaluation although the patient does not want to wait for me to do that and I explained to them that I have concerns that this may be a septic joint and will require immediate intervention and may require being seen today. Patient states that his ride is leaving and he cannot wait and asked if we could call him with the information for the referral. Patient is refusing to wait any longer in the department. He understands my concern about a septic joint that could potentially lead to loss of digit. Hours after the patient had left the department, I was able to get a return phone call from Dr. Hammonds's office and I was able to give them patient's phone number and the plan was for them to contact the patient to arrange close follow-up and morenita luation by their hand surgeons. I did let their office know that I was concerned about possibility of a septic joint of the index finger. Radiography Diagnostic Testing: Clinical Impression(s) from Imaging Studies Hand X-Ray 10/27/21 10:37 IMPRESSION: Diffuse soft tissue swelling overlying the index finger. No radiopaque foreign body is seen. Electronically Signed: Nishant Masterson MD at 11:13 EDT , Discharge Plan Triage Chief Complaint: Suture Remv ED Provider: Sana Hahn Dx/Rx/DC Orders Clinical Impression: Encounter for removal of sutures, Wound infection Instructions: ED Laceration: Infected Repair Prescriptions: New cephalexin [cephalexin] 500 mg capsule 500 mg PO Q6 Qty: 40 0RF hydrocodone-acetaminophen [hydrocodone-acetaminophen] 5-325 mg tablet 1 tab PO Q4H PRN PRN (Reason: Pain) 2 Days Qty: 10 0RF hydrocodone-acetaminophen [hydrocodone-acetaminophen] 5-325 mg tablet 1 tab PO Q4H PRN PRN (Reason: Pain) 2 Days Qty: 10 0RF No Action (DME) Handicap Placard See Rx Instructions .Route .MEDSUPPLY Qty: 1 0RF Rx Instructions: Good from 07/23/2020-07/23/20[place] [place] blood pressure monitor Kit See Rx Instructions .ROUTE .MEDSUPPLY Qty: 1 0RF Rx Instructions: Check blood pressure daily for hypertension I10 atorvastatin 40 mg tablet 40 mg PO DAILY Qty: 30 11RF Hold Instructions: Elevated LFT-Seeing Friend 03/2021 [place] [place] nebulizer accessories Misc See Rx Instructions .ROUTE .MEDSUPPLY Qty: 1 0RF Rx Instructions: As directed ([facility] [place] Aeroneb Go Nebulizer Misc See Rx Instructions .ROUTE .MEDSUPPLY Qty: 1 0RF Rx Instructions: As directed albuterol sulfate 2.5 mg /3 mL (0.083 %) solution for nebulization 2.5 mg INHALATION Q2H PRN PRN (Reason: dyspnea, wheezing) Qty: 90 3RF albuterol sulfate 90 mcg/actuation HFA aerosol inhaler 1 puff INHALATION Q6H PRN PRN (Reason: Sob &/Or Wheezing) Qty: 8.5 1RF aripiprazole 10 mg tablet 10 mg PO QHS Qty: 90 3RF aspirin 81 mg tablet,delayed release (DR/EC) 81 mg PO ONCE Qty: 30 11RF (DME) blood sugar diagnostic Strip See Rx Instructions .ROUTE .MEDSUPPLY Qty: 100 5RF Rx Instructions: One Touch - As directed 3 x DAILY for Diabetes (E11.9) carvedilol 12.5 mg tablet 12.5 mg PO BID Qty: 60 11RF Rx Instructions: must administer with a meal/food clopidogrel 75 mg tablet 75 mg PO DAILY Qty: 30 11RF furosemide 40 mg tablet 40 mg PO BID Qty: 30 11RF Humalog Mix 50-50 KwikPen 100 unit/mL (50-50) insulin pen 45 unit SC BID 90 Days Qty: 81 3RF (DME) lancets [FreeStyle Lancets] 28 gauge misc See Dose Instructions .Route .MEDSUPPLY Qty: 200 3RF Dose Instruction: Check blood glucose daily for type 2 DM Rx Instructions: Check blood glucose daily for type 2 DM 3x daily losartan 25 mg tablet 25 mg PO DAILY Qty: 30 11RF magnesium oxide 400 mg (241.3 mg magnesium) tablet 400 mg PO BID Qty: 60 11RF metformin 1,000 mg tablet,ER [email or web address].retention 24 hr 1,000 mg PO BID Qty: 180 3RF nitroglycerin 0.4 mg tablet, sublingual 0.4 mg SUBLINGUAL Q5M PRN (Reason: Chest Pain) Qty: 25 3RF Rx Instructions: Place one tab under tongue every 5 minutes x 3 doses as needed pantoprazole 40 mg tablet,delayed release (DR/EC) 40 mg PO DAILY Qty: 90 3RF Rx Instructions: Take 40mg by mouth twice a day for 2 weeks and then return to taking 40mg by mouth once a day. (DME) pen needle, diabetic [1st Tier Unifine Pentips] 31 gauge x 5/16 needle See Rx Instructions .ROUTE .MEDSUPPLY Qty: 100 3RF Rx Instructions: As directed 4x DAILY BD BRAND potassium chloride 20 mEq tablet extended release 20 meq PO DAILY Qty: 30 11RF sennosides-docusate sodium [Senna with Docusate Sodium] 8.6-50 mg tablet 1 tab-cap PO BID Qty: 180 2RF spironolactone 25 mg tablet 25 mg PO DAILY Qty: 30 11RF budesonide-formoterol [Symbicort] 160-4.5 mcg/actuation HFA aerosol inhaler 2 puff INHALATION Q12H Qty: 10.2 3RF Primary Care Provider: Tammie Nieves Referrals: Tammie Nieves MD [Primary Care Provider] - Brice Lane DO [STAFF PHYSICIAN] - 3-5 Days Activity Restrictions/Additional Instructions: Follow-up with Dr. Cooper Hammonds at [facility] orthopedics Disposition Disposition: Home, Self Care Discharge Date/Time: 10/27/21 12:13
[2021-10-27] MEDS: Cephalexin 250 MG Capsule 500 MG PO (12:04)
--- NOTE | 2021-10-27 12:09 | ED.RN ---
DR BARNHART SPOKE WITH PT EXPLAINING THE RISKS OF INFECTION IN HIS FINGER. PT STATES HE IS READY TO LEAVE AND CANNOT WAIT, DR BARNHART TOLD PT THAT HE IS SUGGESTING A HAND SURGEON TO SEE HIM TODAY AND WAITING TO HEAR BACK FROM ONE. PT STILL DECIDING TO LEAVE BEFORE RECIEVING DC PAPERS, BRONWYN MADE AWARE.
--- NOTE | 2021-10-27 12:12 | ED.RN ---
PT ALSO LEFT PRIOR TO RECIEVING ALUMINUM SPLINT
== END 2021-10-27 12:13 | disposition home or self-care (01) ==
PROVIDERS: Emergency Provider Emergency Medicine; PCP Internal Medicine; Visit Provider Emergency Medicine
DX: Z48.02 Encounter for removal of sutures (principal); I11.0 Hypertensive heart disease with heart failure; I50.22 Chronic systolic (congestive) heart failure; E11.42 Type 2 diabetes mellitus with diabetic polyneuropathy; Z79.4 Long term (current) use of insulin; T81.41XA Infection following a procedure, superficial incisional surgical site, initial encounter; X58.XXXA Exposure to other specified factors, initial encounter; I25.10 Atherosclerotic heart disease of native coronary artery without angina pectoris; I25.5 Ischemic cardiomyopathy; I25.2 Old myocardial infarction; E78.5 Hyperlipidemia, unspecified; F17.210 Nicotine dependence, cigarettes, uncomplicated; Z95.5 Presence of coronary angioplasty implant and graft; Z95.810 Presence of automatic (implantable) cardiac defibrillator; Z79.02 Long term (current) use of antithrombotics/antiplatelets; Z79.82 Long term (current) use of aspirin; Z79.84 Long term (current) use of oral hypoglycemic drugs; Z79.899 Other long term (current) drug therapy
CPT/HCPCS: 73130; 99283

== ENCOUNTER 2022-01-18 08:19 | Emergency (ER) | payer MEDICAID, SELFPAY ==
[2020-04-10 09:35] VITALS: BMI 25.9
[2022-01-18 08:19] VITALS: BP 146/112; PULSE 99; RESP 20; TEMP 36.6; O2SAT 99; BMI 28.5
[2022-01-18 08:21] VITALS: BP 146/112; PULSE 99; RESP 20; TEMP 36.6; O2SAT 99
[2022-01-18 08:30] VITALS: O2SAT 98
--- NOTE | 2022-01-18 09:13 | ED.RN ---
THIS RN TO BEDSIDE FOR PT ROUNDS, PT GOWN LAYING ON THE BED PT NOT IN ROOM. PT LWBS.
--- NOTE | 2022-01-18 09:23 | EDS_ITS ---
HPI History of Present Illness Chief Complaint: Shortness of Breath Informant: patient Narrative Narrative: 6-year-old male scented to the emergency department chief complaint of shortness of breath. Patient states for the past 3 to 4 days he has developed a cough that is occasionally productive along with associated shortness of breath. Is worse with laying flat. He states that he occasionally produces a yellow-green sputum. He notes subjective fever. He denies rhinorrhea sore throat or ear pain. He notes that he has had some posttussive emesis. He states he has a history of asthma. Per the chart he has a history of NSTEMI CHF/ischemic cardiomyopathy hypertension dyslipidemia diabetes. He states that he has had some sharp left-sided chest pain that comes and goes. He states that he has not been able to sleep for the past several nights because of the coughing [facility] Medical History Anxiety and depression Atherosclerosis of coronary artery of [place] heart without angina pectoris Bipolar I disorder with depression Chronic constipation Chronic systolic CHF (congestive heart failure) Depression Diabetes Elevated liver enzymes Essential hypertension Flu vaccine need Hepatitis B History of non-ST elevation myocardial infarction (NSTEMI) (07/2018) Hyperlipidemia ICD (implantable cardioverter-defibrillator) discharge Ischemic cardiomyopathy Nicotine dependence Peripheral neuropathy Polyneuropathy due to type 2 diabetes mellitus Polysubstance abuse Severe left ventricular systolic dysfunction Type 2 diabetes mellitus Home Medications blood pressure monitor #1 ea 05/31/19 [Rx Last Taken Unknown] atorvastatin 40 mg tablet 40 mg PO DAILY #30 tabs 07/09/20 [Rx Last Taken Unknown] Handicap Placard #1 ea 07/23/20 [Rx Last Taken Unknown] albuterol sulfate 2.5 mg/3 mL (0.083 %) solution for nebulization 2.5 mg (3 mL) inhalation Q2H PRN PRN dyspnea, wheezing #90 mL 04/22/21 [Rx Last Taken Unknown] nebulizer accessories #1 ea 04/22/21 [Rx Last Taken Unknown] nebulizers (Aeroneb Go Nebulizer) #1 ea 04/22/21 [Rx Last Taken Unknown] albuterol sulfate 90 mcg/actuation aerosol inhaler 1 puff inhalation Q6H PRN PRN Sob &/Or Wheezing #8.5 grams 07/30/21 [Rx Last Taken Unknown] aripiprazole 10 mg tablet 10 mg PO QHS #90 tabs 07/30/21 [Rx Last Taken Unknown] aspirin 81 mg tablet,delayed release 81 mg PO ONCE #30 tabs 07/30/21 [Rx Last Taken Unknown] blood sugar diagnostic #100 ea 07/30/21 [Rx Last Taken Unknown] carvedilol 12.5 mg tablet 12.5 mg PO BID #60 tabs 07/30/21 [Rx Last Taken Unknown] clopidogrel 75 mg tablet 75 mg PO DAILY heart #30 tabs 07/30/21 [Rx Last Taken Unknown] furosemide 40 mg tablet 40 mg PO BID #30 tabs 07/30/21 [Rx Last Taken Unknown] insulin lispro protamine-lispro 100 unit/mL (50-50) subcutaneous pen (Humalog Mix 50-50 KwikPen) 45 unit (0.45 mL) subcut BID 3 months #81 mL 07/30/21 [Rx Last Taken Unknown] lancets 28 gauge (FreeStyle Lancets) #200 ea 07/30/21 [Rx Last Taken Unknown] losartan 25 mg tablet 25 mg PO DAILY #30 tabs 07/30/21 [Rx Last Taken Unknown] magnesium oxide 400 mg (241.3 mg magnesium) tablet 400 mg PO BID #60 tabs 07/30/21 [Rx Last Taken Unknown] metformin 1,000 mg 24 hr tablet,extended release 1,000 mg PO BID #180 tabs 07/30/21 [Rx Last Taken Unknown] nitroglycerin 0.4 mg sublingual tablet 0.4 mg sublingual Q5M PRN Chest Pain #25 tabs 07/30/21 [Rx Last Taken Unknown] pantoprazole 40 mg tablet,delayed release 40 mg PO DAILY #90 tabs 07/30/21 [Rx Last Taken Unknown] pen needle, diabetic 31 gauge x 5/16 (1st Tier Unifine Pentips) #100 ea 07/30/21 [Rx Last Taken Unknown] potassium chloride 20 mEq tablet,extended release 20 meq PO DAILY replacement ##30 07/30/21 [Rx Last Taken Unknown] sennosides 8.6 mg-docusate sodium 50 mg tablet (Senna with Docusate Sodium) 1 tab-cap PO BID #180 tabs 07/30/21 [Rx Last Taken Unknown] spironolactone 25 mg tablet 25 mg PO DAILY #30 tabs 07/30/21 [Rx Last Taken Unknown] cephalexin 500 mg capsule 500 mg PO Q6 #40 CAPSULES 10/27/21 [Rx Last Taken Unknown] hydrocodone-acetaminophen 5-325mg 5mg-325mg 1 tab PO Q4H PRN PRN Pain 2 days #10 TABLETS 10/27/21 [Rx Last Taken Unknown] hydrocodone-acetaminophen 5-325mg 5mg-325mg 1 tab PO Q4H PRN PRN Pain 2 days #10 TABLETS 10/27/21 [Rx Last Taken Unknown] Symbicort 160 mcg-4.5 mcg/actuation HFA aerosol inhaler (budesonide-formoterol) 2 puff inhalation Q12H #10.2 grams 01/10/22 [Rx Last Taken Unknown] Allergy/AdvReac Type Severity Reaction Status Date / Time No Known Allergies Allergy Verified 01/18/22 08:22 Family History Mother CAD (coronary artery disease) Diabetes Hypertension Myocardial infarction Asthma Father CAD (coronary artery disease) Diabetes Hypertension Myocardial infarction Brother Hypertension Asthma Grandfather Asthma COPD (chronic obstructive pulmonary disease) Surgical History History of appendectomy History of coronary artery stent placement (04/30/18) History of left heart catheterization (12/05/18) Presence of automatic implantable cardioverter-defibrillator (06/28/17) Social History Smoking Status: Current every day smoker tobacco type: cigarettes Tobacco: How many years used: 10 Smokeless tobacco user: other Electronic Cigarette Use: not used second hand exposure: Yes alcohol intake: never substance use type: marijuana caffeine: Yes Type: carbonated beverages and tea ROS ROS ED Constitutional Constitutional ED: Reports chills, fever(s) and sweats; Denies weight loss Eyes Eyes: Denies change in vision or diplopia ENT ENT ED: Denies ear pain, rhinorrhea or sore throat Cardiovascular Cardiovascular: Reports chest pain and orthopnea; Denies palpitations or racing heartbeat Respiratory/Chest Respiratory/Chest: Reports cough, dyspnea, dyspnea on exertion and orthopnea Gastrointestinal Gastrointestinal: Reports other Details: Posttussive emesis ; Denies abdominal pain, diarrhea, nausea or vomiting Genitourinary Genitourinary ED: Denies dysuria, hematuria or urinary frequency Musculoskeletal Musculoskeletal: Denies arthralgias or myalgias Integumentary Denies abscess or rash Neurologic Neurologic: Denies headache(s) or weakness Psychiatric Psychiatric: Denies anxiety, depression, suicidal ideation or suicidal thoughts Endocrine Endocrinology: Denies polydipsia, polyphagia or polyuria Allergic/Immunologic Allergic/Immunologic ED: Denies mouth swelling, tongue swelling or urticaria EXAM Physical Exam Narrative Exam Narrative: Patient falls asleep while talking with me. Const Vital Signs: 01/18/22 08:19 01/18/22 08:29 01/18/22 08:21 Temperature 98 F 98 F Temperature Source Temporal Temporal Pulse Rate 99 99 Respiratory Rate 20 H 20 H Respiratory Effort Short of Breath Labored Blood Pressure 146/112 H 146/112 H Blood Pressure Mean 123 123 Pulse Ox 99 99 Oxygen Delivery Method Room Air Room Air 01/18/22 08:30 01/18/22 09:38 01/18/22 10:33 Temperature Temperature Source Pulse Rate 105 H 94 Respiratory Rate 18 Respiratory Effort Short of Breath Labored Blood Pressure 168/111 H Blood Pressure Mean 130 Pulse Ox 98 Oxygen Delivery Method Room Air Room Air Positive well nourished and well developed General Appearance ED: well developed HEENT Reports normocephalic, head/scalp atraumatic and moist mucous membranes Eyes PERRL and EOMs intact bilaterally Neck no lymphadenopathy, supple and no JVD Resp normal respiratory effort and clear to auscultation bilaterally Cardio regular rate, regular rhythm and no murmurs GI normal to inspection, nondistended, normoactive bowel sounds and non-tender Palpation: soft Back/Spine no CVA tenderness and normal ROM Extremity normal to inspection General Extremety ED: Negative for edema General Extremity: Negative for edema Neuro oriented x3 and CN's II-XII intact bilaterally Sensorium / Orientation: alert Motor Exam: strength 5/5 throughout Psych mental status grossly normal Mood & Affect: Negative for depressed or tearful Skin no rashes or lesions noted and no wounds MDM MDM MDM Narrative Medical decision making narrative: While awaiting the patient's blood work he became irate and started cursing at staff stating that nobody is doing anything for him and he is leaving. Patient appears to have the capacity to make this decision so we did not attempt to stand on his way or convince him otherwise. He understands that we are waiting for blood work. His white count returns at 8.5 D-dimer is elevated at 0.66 does not age correct as he is only 46. His troponin is elevated at 89. Glucose at 468. His beta natruretic peptide is 482. My interpretation of his chest x-ray is no acute process. I would like to have discussed the results with the patient but he is already left. As mentioned I believe he has the capacity to make what ever medical decision he would like. Does not appear under the influence of any medication or substance. He understands his choices. Lab Data Labs: Laboratory Results - last 24 hr 01/18/22 01/18/22 01/18/22 10:00 10:00 10:00 WBC 8.5 RBC 5.17 Hgb 16.3 Hct 46.6 MCV 90.1 MCH 31.5 MCHC 35.0 RDW Std Deviation 40.8 RDW Coeff of Brandi 12.3 Plt Count 176 MPV 10.5 Immature Gran % (Auto) 0.200 Neut % (Auto) 70.9 H Lymph % (Auto) 21.0 [place] % (Auto) 6.3 Eos % (Auto) 1.4 Baso % (Auto) 0.2 Absolute Neuts (auto) 6.0 Absolute Lymphs (auto) 1.79 Nucleated RBC % 0 D-Dimer Quant (PE/DVT) 0.66 H* Sodium 136 Potassium 4.0 Chloride 101 Carbon Dioxide 24.0 Anion Gap 11 BUN 7 Creatinine 1.00 Estim Creat Clear Calc 103.47 Est GFR (MDRD) Af Amer 105 Est GFR (MDRD) Non-Af 86 BUN/Creatinine Ratio 7.0 L Glucose 468 H* Calcium 9.1 Total Bilirubin 0.80 AST 20 ALT 41 Alkaline Phosphatase 95 Troponin I High Sens 89 H B-Natriuretic Peptide Total Protein 7.4 Albumin 3.3 Globulin 4.1 Albumin/Globulin Ratio 0.8 L 01/18/22 10:00 WBC RBC Hgb Hct MCV MCH MCHC RDW Std Deviation RDW Coeff of Brandi Plt Count MPV Immature Gran % (Auto) Neut % (Auto) Lymph % (Auto) [place] % (Auto) Eos % (Auto) Baso % (Auto) Absolute Neuts (auto) Absolute Lymphs (auto) Nucleated RBC % D-Dimer Quant (PE/DVT) Sodium Potassium Chloride Carbon Dioxide Anion Gap BUN Creatinine Estim Creat Clear Calc Est GFR (MDRD) Af Amer Est GFR (MDRD) Non-Af BUN/Creatinine Ratio Glucose Calcium Total Bilirubin AST ALT Alkaline Phosphatase Troponin I High Sens B-Natriuretic Peptide 482.8 H Total Protein Albumin Globulin Albumin/Globulin Ratio Radiography Diagnostic Testing: Clinical Impression(s) from Imaging Studies Chest X-Ray 01/18/22 10:30 IMPRESSION: No acute pulmonary process, no interval change Electronically Signed: Chadd Godinez MD at 10:40 EDT Reading Location ID and State: [address] [place] [address] , Service support , EKG Initial EKG: Attestation: I personally reviewed and interpreted this EKG as follows: Comments: Normal sinus rhythm ventricular rate of 88 bpm. Discharge Plan Triage Chief Complaint: Shortness of Breath ED Provider: Faisal Pulido Dx/Rx/DC Orders Prescriptions: No Action (DME) Handicap Placard See Rx Instructions .Route .MEDSUPPLY Qty: 1 0RF Rx Instructions: Good from 07/23/2020-07/23/2025 cephalexin [cephalexin] 500 mg capsule 500 mg PO Q6 Qty: 40 0RF hydrocodone-acetaminophen [hydrocodone-acetaminophen] 5-325 mg tablet 1 tab PO Q4H PRN PRN (Reason: Pain) 2 Days Qty: 10 0RF hydrocodone-acetaminophen [hydrocodone-acetaminophen] 5-325 mg tablet 1 tab PO Q4H PRN PRN (Reason: Pain) 2 Days Qty: 10 0RF ([facility]) blood pressure monitor Kit See Rx Instructions .ROUTE .MEDSUPPLY Qty: 1 0RF Rx Instructions: Check blood pressure daily for hypertension I10 atorvastatin 40 mg tablet 40 mg PO DAILY Qty: 30 11RF Hold Instructions: Elevated LFT-Seeing Dr. Escobedo 03/2021 ([facility]) nebulizer accessories Misc See Rx Instructions .ROUTE .MEDSUPPLY Qty: 1 0RF Rx Instructions: As directed ([facility]) Aeroneb Go Nebulizer Misc See Rx Instructions .ROUTE .MEDSUPPLY Qty: 1 0RF Rx Instructions: As directed albuterol sulfate 2.5 mg /3 mL (0.083 %) solution for nebulization 2.5 mg INHALATION Q2H PRN PRN (Reason: dyspnea, wheezing) Qty: 90 3RF albuterol sulfate 90 mcg/actuation HFA aerosol inhaler 1 puff INHALATION Q6H PRN PRN (Reason: Sob &/Or Wheezing) Qty: 8.5 1RF aripiprazole 10 mg tablet 10 mg PO QHS Qty: 90 3RF aspirin 81 mg tablet,delayed release (DR/EC) 81 mg PO ONCE Qty: 30 11RF (DME) blood sugar diagnostic Strip See Rx Instructions .ROUTE .MEDSUPPLY Qty: 100 5RF Rx Instructions: One Touch - As directed 3 x DAILY for Diabetes (E11.9) carvedilol 12.5 mg tablet 12.5 mg PO BID Qty: 60 11RF Rx Instructions: must administer with a meal/food clopidogrel 75 mg tablet 75 mg PO DAILY Qty: 30 11RF furosemide 40 mg tablet 40 mg PO BID Qty: 30 11RF Humalog Mix 50-50 KwikPen 100 unit/mL (50-50) insulin pen 45 unit SC BID 90 Days Qty: 81 3RF (DME) lancets [FreeStyle Lancets] 28 gauge misc See Dose Instructions .Route .MEDSUPPLY Qty: 200 3RF Dose Instruction: Check blood glucose daily for type 2 DM Rx Instructions: Check blood glucose daily for type 2 DM 3x daily losartan 25 mg tablet 25 mg PO DAILY Qty: 30 11RF magnesium oxide 400 mg (241.3 mg magnesium) tablet 400 mg PO BID Qty: 60 11RF metformin 1,000 mg tablet,ER [email or web address] 24 hr 1,000 mg PO BID Qty: 180 3RF nitroglycerin 0.4 mg tablet, sublingual 0.4 mg SUBLINGUAL Q5M PRN (Reason: Chest Pain) Qty: 25 3RF Rx Instructions: Place one tab under tongue every 5 minutes x 3 doses as needed pantoprazole 40 mg tablet,delayed release (DR/EC) 40 mg PO DAILY Qty: 90 3RF Rx Instructions: Take 40mg by mouth twice a day for 2 weeks and then return to taking 40mg by mouth once a day. (DME) pen needle, diabetic [1st Tier Unifine Pentips] 31 gauge x 5/16 needle See Rx Instructions .ROUTE .MEDSUPPLY Qty: 100 3RF Rx Instructions: As directed 4x DAILY BD BRAND potassium chloride 20 mEq tablet extended release 20 meq PO DAILY Qty: 30 11RF sennosides-docusate sodium [Senna with Docusate Sodium] 8.6-50 mg tablet 1 tab-cap PO BID Qty: 180 2RF spironolactone 25 mg tablet 25 mg PO DAILY Qty: 30 11RF budesonide-formoterol [Symbicort] 160-4.5 mcg/actuation HFA aerosol inhaler 2 puff INHALATION Q12H Qty: 10.2 3RF Primary Care Provider: Tammie Nieves Referrals: Tammie Nieves MD [Primary Care Provider] - Capacity Capacity Assessment Tool Can the patient make a choice & communicate that choice?: Yes Can the patient understand benefits, risks and alternatives?: Yes Can the patient make a logical, rational choice?: Yes Is the choice the patient makes consistent w/ their values?: Yes Is there an impending, emergent risk to the patient?: Unable to Determine Does the patient have an Advance Directive?: Unable to Determine Is there a Surrogate Available?: No i.e. HCPOA: Unable to Determine i.e. close relative (spouse, child, parent, sibling)?: Unable to Determine
[2022-01-18] MEDS: Ipratropium/Albuterol Sulfate 3 ML AMPUL.NEB INHALATION (09:37)
[2022-01-18 09:38] VITALS: PULSE 105; RESP 18
[2022-01-18 10:12] LABS: Absolute Lymphocyte Count 1.79 X10^3/uL (0.83-4.51); Basophil# 0.02 X10^3/uL; Basophil% 0.2 % (0-1); Eosinophil# 0.12 X10^3/uL; Eosinophils% 1.4 % (0-5); Hematocrit 46.6 % (40-54); Hemoglobin 16.3 g/dL (13.0-16.5); Lymphocyte # 1.79 X10^3/ul (0.83-4.51); Mean Corpuscular Hgb 31.5 pg (27.0-32.0); Mean Corpuscular Volume 90.1 fL (80-94); Mean Platelet Vol. 10.5 fl (6.2-12.0); Monocyte# 0.54 X10^3/uL; Monocyte% 6.3 % (0-10); NRBC Flagged by Analyzer 0 % (0-5); Neutrophil # 6.02 X10^3/uL (2.7-7.7); Neutrophil % 70.9 % (47-70); Platelet Count 176 K/mm3 (150-450); RBC Distribution Width CV 12.3 % (11.6-14.6); RBC Distribution Width SD 40.8 fl (35.1-43.9); Red Blood Count 5.17 M/mm3 (4.6-6.2); White Blood Count 8.5 K/mm3 (4.4-11.0)
[2022-01-18 10:26] LABS: BNP,B-Type NATRIURETIC PEPTIDE 482.8 pg/mL (0-100)
--- NOTE | 2022-01-18 10:30 | RAD_ITS ---
STUDY: X-RAY CHEST REASON FOR EXAM: Male, 46 years old. Chest pain/pressure TECHNIQUE: 2 AP portable views COMPARISON: 07/06/2021 FINDINGS: EKG leads overlie the chest. Stable appearance of a left-sided pacemaker The lungs are clear and expanded. There is no demonstrated pleural abnormality. Normal size heart. Normal mediastinum and kelly. Normal visualized pulmonary arteries. Normal visualized aortic arch and descending thoracic aorta. Normal visualized thoracic spine. Normal visualized ribs, clavicles, and shoulders. There is no demonstrated abnormality of the visualized soft tissue structures of the upper abdomen. RAD/Chest 1 View (Portable) IMPRESSION: No acute pulmonary process, no interval change Electronically Signed: Chdad Godinez MD at 10:40 EDT ,
[2022-01-18 10:33] VITALS: BP 168/111; PULSE 94; O2SAT 98
[2022-01-18 10:34] LABS: ALB/GLOB Ratio 0.8 RATIO (0.9-2.4); AST(SGOT) 20 U/L (15-37); Alanine Aminotransfer ALT/SGPT 41 U/L (16-61); Albumin, Serum 3.3 g/dL (3.2-5.0); Alkaline Phosphatase 95 U/L (45-117); Anion Gap 11 (5-15); BUN 7 mg/dL (7-18); Calcium,Total 9.1 mg/dL (8.5-10.1); Chloride 101 mmol/L (98-107); EST Glomerular Filtration Rate 86 mL/min (>60); Est Glom Filt Rate - Afr Amer 105 mL/min (>60); Estimated Creatinine Clearance 103.47 ml/min; Globulin 4.1 g/dL (2.2-4.2); Glucose 468 mg/dL (74-106); Protein, Total 7.4 g/dL (6.4-8.2); Sodium Level 136 mmol/L (136-145); Troponin-I HS 89 pg/mL (3.0-78.0)
[2022-01-18 10:35] LABS: D-Dimer Quantitative (DVT/PE) 0.66 FEU/ug/m (0.27-0.49)
--- NOTE | 2022-01-18 10:41 | ED.RN ---
pt yelling that this is ridiculous, i cant breathe, i'll just go in the street. get this iv out.
== END 2022-01-18 10:59 | disposition left against medical advice (07) ==
LOC: ED 10:46
PROVIDERS: Emergency Provider Emergency Medicine; PCP Internal Medicine; Visit Provider Emergency Medicine
DX: R06.02 Shortness of breath (principal); I11.0 Hypertensive heart disease with heart failure; I50.22 Chronic systolic (congestive) heart failure; E11.42 Type 2 diabetes mellitus with diabetic polyneuropathy; Z79.4 Long term (current) use of insulin; F17.210 Nicotine dependence, cigarettes, uncomplicated; E78.5 Hyperlipidemia, unspecified; I25.10 Atherosclerotic heart disease of native coronary artery without angina pectoris; Z79.899 Other long term (current) drug therapy; Z79.82 Long term (current) use of aspirin; Z79.84 Long term (current) use of oral hypoglycemic drugs; Z79.51 Long term (current) use of inhaled steroids; Z53.29 Procedure and treatment not carried out because of patient's decision for other reasons
CPT/HCPCS: 71045; 80053; 83880; 84484; 85025; 85379; 87811; 93005; 94640; 99285; A4216

== ENCOUNTER 2022-01-29 23:59 | Inpatient (IN) | payer MEDICAID, SELFPAY ==
[2020-04-10 09:35] VITALS: BMI 25.9
[2022-01-30] VITALS (22 sets, daily range): BP systolic 124–171; BP diastolic 82–111; PULSE 81–120; RESP 18–30; TEMP 36.1–37; O2SAT 94–98; BMI 27.5; BMI 26.0
--- NOTE | 2022-01-30 00:04 | EKG12_ITS ---
Test Reason : SOB Blood Pressure : / mmHG Vent. Rate : 100 BPM Atrial Rate : 100 BPM P-R Int : 162 ms QRS Dur : 096 ms QT Int : 380 ms P-R-T Axes : 066 -66 084 degrees QTc Int : 490 ms Normal sinus rhythm Possible Left atrial enlargement Left anterior fascicular block Minimal voltage criteria for LVH, may be normal variant ( [place] product ) Anteroseptal infarct , age undetermineds Abnormal ECG Confirmed by CHAR MCKEON, HAIM ([id number]), acquisitions editor PANCHITO SUTTON ([id number]) on 02/01/2022 12:41:16 PM Referred By: Confirmed By:HAIM PARDO MD
--- NOTE | 2022-01-30 00:09 | EDS_ITS ---
HPI History of Present Illness Chief Complaint: Shortness of Breath Informant: patient and family Onset/Context/Timing Onset: Days Context: gradual Current Severity: Mild Maximum Severity: Moderate Narrative Narrative: Patient present secondary to shortness of breath. He has a history of COPD and states he does not have nebulizer machine. He has had increasing shortness of breath the past couple days. He denies fever. He denies chest pain. He has had a mild cough. [facility] Medical History Anxiety and depression Atherosclerosis of coronary artery of [place] heart without angina pectoris Bipolar I disorder with depression Chronic constipation Chronic systolic CHF (congestive heart failure) Depression Diabetes Elevated liver enzymes Essential hypertension Flu vaccine need Hepatitis B History of non-ST elevation myocardial infarction (NSTEMI) (07/2018) Hyperlipidemia ICD (implantable cardioverter-defibrillator) discharge Ischemic cardiomyopathy Nicotine dependence Peripheral neuropathy Polyneuropathy due to type 2 diabetes mellitus Polysubstance abuse Severe left ventricular systolic dysfunction Type 2 diabetes mellitus Home Medications blood pressure monitor #1 ea 05/31/19 [Rx Last Taken Unknown] atorvastatin 40 mg tablet 40 mg PO DAILY #30 tabs 07/09/20 [Rx Last Taken Unknown] Handicap Placard #1 ea 07/23/20 [Rx Last Taken Unknown] albuterol sulfate 2.5 mg/3 mL (0.083 %) solution for nebulization 2.5 mg (3 mL) inhalation Q2H PRN PRN dyspnea, wheezing #90 mL 04/22/21 [Rx Last Taken Unknown] nebulizer accessories #1 ea 04/22/21 [Rx Last Taken Unknown] nebulizers (Aeroneb Go Nebulizer) #1 ea 04/22/21 [Rx Last Taken Unknown] albuterol sulfate 90 mcg/actuation aerosol inhaler 1 puff inhalation Q6H PRN PRN Sob &/Or Wheezing #8.5 grams 07/30/21 [Rx Last Taken Unknown] aripiprazole 10 mg tablet 10 mg PO QHS #90 tabs 07/30/21 [Rx Last Taken Unknown] aspirin 81 mg tablet,delayed release 81 mg PO ONCE #30 tabs 07/30/21 [Rx Last Taken Unknown] blood sugar diagnostic #100 ea 07/30/21 [Rx Last Taken Unknown] carvedilol 12.5 mg tablet 12.5 mg PO BID #60 tabs 07/30/21 [Rx Last Taken Unknown] clopidogrel 75 mg tablet 75 mg PO DAILY heart #30 tabs 07/30/21 [Rx Last Taken Unknown] furosemide 40 mg tablet 40 mg PO BID #30 tabs 07/30/21 [Rx Last Taken Unknown] insulin lispro protamine-lispro 100 unit/mL (50-50) subcutaneous pen (Humalog Mix 50-50 KwikPen) 45 unit (0.45 mL) subcut BID 3 months #81 mL 07/30/21 [Rx Last Taken Unknown] lancets 28 gauge (FreeStyle Lancets) #200 ea 07/30/21 [Rx Last Taken Unknown] losartan 25 mg tablet 25 mg PO DAILY #30 tabs 07/30/21 [Rx Last Taken Unknown] magnesium oxide 400 mg (241.3 mg magnesium) tablet 400 mg PO BID #60 tabs 07/30/21 [Rx Last Taken Unknown] metformin 1,000 mg 24 hr tablet,extended release 1,000 mg PO BID #180 tabs 07/30/21 [Rx Last Taken Unknown] nitroglycerin 0.4 mg sublingual tablet 0.4 mg sublingual Q5M PRN Chest Pain #25 tabs 07/30/21 [Rx Last Taken Unknown] pantoprazole 40 mg tablet,delayed release 40 mg PO DAILY #90 tabs 07/30/21 [Rx Last Taken Unknown] pen needle, diabetic 31 gauge x 5/16 (1st Tier Unifine Pentips) #100 ea 07/30/21 [Rx Last Taken Unknown] potassium chloride 20 mEq tablet,extended release 20 meq PO DAILY replacement ##30 07/30/21 [Rx Last Taken Unknown] sennosides 8.6 mg-docusate sodium 50 mg tablet (Senna with Docusate Sodium) 1 tab-cap PO BID #180 tabs 07/30/21 [Rx Last Taken Unknown] spironolactone 25 mg tablet 25 mg PO DAILY #30 tabs 07/30/21 [Rx Last Taken Unknown] cephalexin 500 mg capsule 500 mg PO Q6 #40 CAPSULES 10/27/21 [Rx Last Taken Unknown] hydrocodone-acetaminophen 5-325mg 5mg-325mg 1 tab PO Q4H PRN PRN Pain 2 days #10 TABLETS 10/27/21 [Rx Last Taken Unknown] hydrocodone-acetaminophen 5-325mg 5mg-325mg 1 tab PO Q4H PRN PRN Pain 2 days #10 TABLETS 10/27/21 [Rx Last Taken Unknown] Symbicort 160 mcg-4.5 mcg/actuation HFA aerosol inhaler (budesonide-formoterol) 2 puff inhalation Q12H #10.2 grams 01/10/22 [Rx Last Taken Unknown] Allergy/AdvReac Type Severity Reaction Status Date / Time No Known Allergies Allergy Verified 01/30/22 00:00 Family History Mother CAD (coronary artery disease) Diabetes Hypertension Myocardial infarction Asthma Father CAD (coronary artery disease) Diabetes Hypertension Myocardial infarction Brother Hypertension Asthma Grandfather Asthma COPD (chronic obstructive pulmonary disease) Surgical History History of appendectomy History of coronary artery stent placement (04/30/18) History of left heart catheterization (12/05/18) Presence of automatic implantable cardioverter-defibrillator (06/28/17) Social History Smoking Status: Current every day smoker tobacco type: cigarettes Tobacco: How many years used: 10 Smokeless tobacco user: other Electronic Cigarette Use: not used second hand exposure: Yes alcohol intake: never substance use type: marijuana caffeine: Yes Type: carbonated beverages and tea ROS ROS ED Constitutional Constitutional ED: Denies chills or fever(s) Eyes Eyes: Denies change in vision or discharge from eye(s) ENT ENT ED: Denies discharge from eye(s), rhinorrhea or sore throat Cardiovascular Cardiovascular: Denies chest pain or palpitations Respiratory/Chest Respiratory/Chest: Reports cough and dyspnea Gastrointestinal Gastrointestinal: Denies abdominal pain, diarrhea, nausea or vomiting Genitourinary Genitourinary ED: Denies dysuria Musculoskeletal Musculoskeletal: Denies back pain or extremity pain Integumentary Denies Abrasions or rash Neurologic Neurologic: Denies headache(s) or weakness Psychiatric Psychiatric: Denies anxiety or depression Allergic/Immunologic Allergic/Immunologic ED: Denies lip swelling or urticaria EXAM Physical Exam Const Vital Signs: 01/30/22 00:00 01/30/22 00:03 01/30/22 00:15 Temperature 97.7 F L Temperature Source Oral Pulse Rate 105 H 103 H Respiratory Rate 25 H 21 H Respiratory Depth Normal Respiratory Pattern Tachypnea Blood Pressure Blood Pressure Mean Pulse Ox 98 Oxygen Delivery Method Room Air Room Air Oxygen Flow Rate (L/min) 01/30/22 01:20 01/30/22 01:30 01/30/22 02:12 Temperature Temperature Source Pulse Rate 102 H 105 H 92 Respiratory Rate 24 H 30 H Respiratory Depth Respiratory Pattern Blood Pressure 163/106 H 171/98 H Blood Pressure Mean 122 Pulse Ox 94 Oxygen Delivery Method Nasal Cannula Oxygen Flow Rate (L/min) 2 01/30/22 02:13 Temperature Temperature Source Pulse Rate Respiratory Rate Respiratory Depth Respiratory Pattern Blood Pressure Blood Pressure Mean Pulse Ox 96 Oxygen Delivery Method Room Air Oxygen Flow Rate (L/min) Positive well nourished and well developed General Appearance ED: well developed HEENT Reports normocephalic and head/scalp atraumatic Eyes PERRL and EOMs intact bilaterally Neck supple Chest Wall inspection of chest normal and palpation of chest normal Resp Resp Narrative: Tachypnea with expiratory wheezes bilaterally. Cardio regular rate and regular rhythm GI non-tender Auscultation: hypoactive bowel sounds Palpation: soft Extremity normal to inspection Neuro oriented x3 and no sensory deficits noted Sensorium / Orientation: alert Motor Exam: strength 5/5 throughout Psych mental status grossly normal Skin no rashes or lesions noted MDM MDM MDM Narrative Medical decision making narrative: Patient initially given Solu-Medrol and aerosols. Lab work obtained along with EKG and chest x-ray. Lab Data Attestation: I reviewed the patient's lab results. Labs: Laboratory Results - last 24 hr 01/30/22 01/30/22 01/30/22 00:35 00:35 00:35 WBC 9.7 RBC 5.11 Hgb 15.5 Hct 45.1 MCV 88.3 MCH 30.3 MCHC 34.4 RDW Std Deviation 39.4 RDW Coeff of Brandi 12.1 Plt Count 183 MPV 10.9 Immature Gran % (Auto) 0.400 Neut % (Auto) 69.3 Lymph % (Auto) 22.5 [place] % (Auto) 5.8 Eos % (Auto) 1.7 Baso % (Auto) 0.3 Absolute Neuts (auto) 6.7 Absolute Lymphs (auto) 2.17 Nucleated RBC % 0 Sodium 133 L Potassium 4.6 Chloride 98 Carbon Dioxide 26.0 Anion Gap 9 BUN 10 Creatinine 1.04 Estim Creat Clear Calc 99.49 Est GFR (MDRD) Af Amer 100 Est GFR (MDRD) Non-Af 82 BUN/Creatinine Ratio 9.6 L Glucose 474 H* Calcium 9.2 Troponin I High Sens 49 B-Natriuretic Peptide 562.4 H ABG Data ABG results: ABG 01/30/22 00:57 Specimen Type ART Sample Site L Radial pH 7.41 Bicarbonate Actual 25.4 Total CO2 27 Base Excess 1 O2 Saturation 91 L ABG pCO2 39.9 ABG pO2 60 L Sami Test Positive O2 Delivery Device Room Air Radiography Chest X-Ray - ED: 1 View, Read by ED Physician and Right Infiltrate Diagnostic Testing: Clinical Impression(s) from Imaging Studies Chest X-Ray 01/30/22 00:30 IMPRESSION: Early congestive heart failure as described. Electronically Signed: Jade Tee MD at 1:03 EDT , EKG Initial EKG: Attestation: I personally reviewed and interpreted this EKG as follows: Interpretation: Sinus Rhythm (Sinus at 100 with left anterior fascicular block. Unchanged when compared to prior study from January 18, 2022.) Treatment and Re-Evaluation Narrative: Patient initially given aerosols and Solu-Medrol. Chest x-ray per my interpretation revealed what I was concerned was a right lower lobe infiltrate. Radiology feels he has early CHF but no focal infiltrate. Patient had been ordered blood cultures along with Rocephin and Zithromax. He received Rocephin but I had nursing staff hold Zithromax as CBC returned with normal white count. Chemistry studies are significant for glucose of 474. Troponin is in normal range at 49. Again patient continues to decline having any chest pain. BNP is 562. Arterial blood gas reveals a pH of 7.412, PCO2 of 40, PO2 of 60, O2 sat 91%. Patient given subcu insulin along with 40 mg of IV Lasix and Nitropaste. He is given 2 additional breathing treatments. At this time patient's lung sounds are improved. He is having oxygen saturations dropping to 88% while sitting at rest. He is currently on 2 L nasal cannula. I will speak with hospitalist regarding admission for observation. Discharge Plan Dx/Rx/DC Orders Clinical Impression: CHF exacerbation, COPD exacerbation, Hyperglycemia Disposition Disposition: Acute Care Hospital [facility]
[2022-01-30] MEDS: Ipratropium/Albuterol Sulfate 3 ML AMPUL.NEB INHALATION (00:13)
[2022-01-30] MEDS: Albuterol 2.5 MG/3 ML VIAL.NEB. INHALATION ×4 (00:13→01:28)
--- NOTE | 2022-01-30 00:30 | RAD_ITS ---
STUDY: X-RAY CHEST REASON FOR EXAM: Male, 46 years old. sob TECHNIQUE: Single AP portable view of the chest. COMPARISON: 01/18/2022. FINDINGS: Redemonstrated is left-sided percutaneous cardiac device. The lungs are normally expanded with interstitial curly B-lines fullness of the central vessels concerning for early congestive heart failure, stable in the interval. There is no demonstrated pleural abnormality. There is mild cardiac enlargement. Normal mediastinum and kelly. Normal visualized pulmonary arteries. Normal visualized aortic arch and descending thoracic aorta. Normal visualized thoracic spine. Normal visualized ribs, clavicles, and shoulders. There is no demonstrated abnormality of the visualized soft tissue structures of the upper abdomen. RAD/Chest 1 View (Portable) IMPRESSION: Early congestive heart failure as described. Electronically Signed: Jade Tee MD at 1:03 EDT ,
[2022-01-30] MEDS: MethylPREDNISolone 125 MG/2 ML Vial IV (00:40)
[2022-01-30 00:55] LABS: Absolute Lymphocyte Count 2.17 X10^3/uL (0.83-4.51); Absolute Neutrophil Count 6.7 X10^3/uL (2.0-7.7); Basophil# 0.03 X10^3/uL; Basophil% 0.3 % (0-1); Eosinophil# 0.16 X10^3/uL; Eosinophils% 1.7 % (0-5); Hematocrit 45.1 % (40-54); Hemoglobin 15.5 g/dL (13.0-16.5); Lymphocyte # 2.17 X10^3/ul (0.83-4.51); Lymphocyte % 22.5 % (19-41); Mean Corp Hgb Conc 34.4 g/dL (32-36); Mean Corpuscular Hgb 30.3 pg (27.0-32.0); Mean Corpuscular Volume 88.3 fL (80-94); Mean Platelet Vol. 10.9 fl (6.2-12.0); Monocyte# 0.56 X10^3/uL; Monocyte% 5.8 % (0-10); NRBC Flagged by Analyzer 0 % (0-5); Neutrophil % 69.3 % (47-70); Platelet Count 183 K/mm3 (150-450); RBC Distribution Width CV 12.1 % (11.6-14.6); RBC Distribution Width SD 39.4 fl (35.1-43.9); Red Blood Count 5.11 M/mm3 (4.6-6.2); White Blood Count 9.7 K/mm3 (4.4-11.0)
[2022-01-30] MEDS: Ceftriaxone 1 GM/50 ML BAG IV (00:55)
[2022-01-30 01:01] LABS: Allen Test Positive; Base Excess 1 mmol/L (-2 to +2); Bicarbonate 25.4 mmol/L (22-26); Blood Gas Specimen Type ART; O2 Delivery Device Room Air; PO2 60 mmHG (75-100); SITE L Radial; SO2 91 % (95-99); Total Carbon Dioxide 27 mmol/L; pCO2 39.9 mmHg (35-45); pH 7.41 (7.35-7.45)
[2022-01-30 01:16] LABS: Anion Gap 9 (5-15); BUN 10 mg/dL (7-18); BUN/Creat Ratio 9.6 RATIO (10-20); Calcium,Total 9.2 mg/dL (8.5-10.1); Chloride 98 mmol/L (98-107); Creatinine, Serum 1.04 mg/dL (0.70-1.30); EST Glomerular Filtration Rate 82 mL/min (>60); Est Glom Filt Rate - Afr Amer 100 mL/min (>60); Estimated Creatinine Clearance 99.49 ml/min; Glucose 474 mg/dL (74-106); Potassium 4.6 mmol/L (3.5-5.1); Sodium Level 133 mmol/L (136-145); Troponin-I HS 49 pg/mL (3.0-78.0)
[2022-01-30] MEDS: Nitroglycerin Oint 1 INCH PACKET TD (01:20)
[2022-01-30] MEDS: Insulin Lispro 100 UNIT/ML INSULN.PEN 10 UNIT SC (01:26)
[2022-01-30] MEDS: Furosemide 40 MG/4 ML Vial IV ×3 (01:32→17:00)
[2022-01-30 01:36] LABS: BNP,B-Type NATRIURETIC PEPTIDE 562.4 pg/mL (0-100)
[2022-01-30 03:01] LABS: Bedside Glucose 480 mg/dL (74-106)
[2022-01-30] MEDS: Insulin Lispro 100 UNIT/ML INSULN.PEN SC ×5 (03:02→21:47)
--- NOTE | 2022-01-30 03:09 | HP.PCM.HOS_ITS ---
[facility] - General General Date of Admission: 01/30/22 Date of Service: 01/30/22 Chief Complaint: Shortness of breath HPI Narrative JEANETTE HUTCHINSON, is a 46 M with a significant history of COPD; heart failure with reduced ejection fraction and AICD; diabetic mellitus; and polysubstance abuse who presents to the emergency department with progressively worsening shortness of breath. History was taken from emergency department doctor as patient would not state why he was at the hospital. Although he was lethargic he was intermittently awake. Yet he would not provide history. Patient stated multiple times that he did not know why he was at the hospital. Emergency Department doctor reported that patient had wheezes on examination and received breathing treatment and steroids. Also reportedly patient was hypoxic and on room air oxygen saturation was about 88% and required supplementary oxygenation. Because of initial concern of pneumonia at the emergency department patient was given Rocephin. Also patient received steroids and breathing treatment at the emergency department. Further patient received Lasix and nitroglycerin paste. [facility] Medical History Anxiety and depression Atherosclerosis of coronary artery of [place] heart without angina pectoris Bipolar I disorder with depression Chronic constipation Chronic systolic CHF (congestive heart failure) Depression Diabetes Elevated liver enzymes Essential hypertension Flu vaccine need Hepatitis B History of non-ST elevation myocardial infarction (NSTEMI) (07/2018) Hyperlipidemia ICD (implantable cardioverter-defibrillator) discharge Ischemic cardiomyopathy Nicotine dependence Peripheral neuropathy Polyneuropathy due to type 2 diabetes mellitus Polysubstance abuse Severe left ventricular systolic dysfunction Type 2 diabetes mellitus Home Medications blood pressure monitor #1 ea 05/31/19 [Rx Last Taken Unknown] atorvastatin 40 mg tablet 40 mg PO DAILY #30 tabs 07/09/20 [Rx Last Taken Unknown] Handicap Placard #1 ea 07/23/20 [Rx Last Taken Unknown] albuterol sulfate 2.5 mg/3 mL (0.083 %) solution for nebulization 2.5 mg (3 mL) inhalation Q2H PRN PRN dyspnea, wheezing #90 mL 04/22/21 [Rx Last Taken Unknown] nebulizer accessories #1 ea 04/22/21 [Rx Last Taken Unknown] nebulizers (Aeroneb Go Nebulizer) #1 ea 04/22/21 [Rx Last Taken Unknown] albuterol sulfate 90 mcg/actuation aerosol inhaler 1 puff inhalation Q6H PRN PRN Sob &/Or Wheezing #8.5 grams 07/30/21 [Rx Last Taken Unknown] aripiprazole 10 mg tablet 10 mg PO QHS #90 tabs 07/30/21 [Rx Last Taken Unknown] aspirin 81 mg tablet,delayed release 81 mg PO ONCE #30 tabs 07/30/21 [Rx Last Taken Unknown] blood sugar diagnostic #100 ea 07/30/21 [Rx Last Taken Unknown] carvedilol 12.5 mg tablet 12.5 mg PO BID #60 tabs 07/30/21 [Rx Last Taken Unkn own] clopidogrel 75 mg tablet 75 mg PO DAILY heart #30 tabs 07/30/21 [Rx Last Taken Unknown] furosemide 40 mg tablet 40 mg PO BID #30 tabs 07/30/21 [Rx Last Taken Unknown] insulin lispro protamine-lispro 100 unit/mL (50-50) subcutaneous pen (Humalog Mix 50-50 KwikPen) 45 unit (0.45 mL) subcut BID 3 months #81 mL 07/30/21 [Rx Last Taken Unknown] lancets 28 gauge (FreeStyle Lancets) #200 ea 07/30/21 [Rx Last Taken Unknown] losartan 25 mg tablet 25 mg PO DAILY #30 tabs 07/30/21 [Rx Last Taken Unknown] magnesium oxide 400 mg (241.3 mg magnesium) tablet 400 mg PO BID #60 tabs 07/30/21 [Rx Last Taken Unknown] metformin 1,000 mg 24 hr tablet,extended release 1,000 mg PO BID #180 tabs 07/30/21 [Rx Last Taken Unknown] nitroglycerin 0.4 mg sublingual tablet 0.4 mg sublingual Q5M PRN Chest Pain #25 tabs 07/30/21 [Rx Last Taken Unknown] pantoprazole 40 mg tablet,delayed release 40 mg PO DAILY #90 tabs 07/30/21 [Rx Last Taken Unknown] pen needle, diabetic 31 gauge x 5/16 (1st Tier Unifine Pentips) #100 ea 07/30/21 [Rx Last Taken Unknown] potassium chloride 20 mEq tablet,extended release 20 meq PO DAILY replacement ##30 07/30/21 [Rx Last Taken Unknown] sennosides 8.6 mg-docusate sodium 50 mg tablet (Senna with Docusate Sodium) 1 tab-cap PO BID #180 tabs 07/30/21 [Rx Last Taken Unknown] spironolactone 25 mg tablet 25 mg PO DAILY #30 tabs 07/30/21 [Rx Last Taken Unknown] cephalexin 500 mg capsule 500 mg PO Q6 #40 CAPSULES 10/27/21 [Rx Last Taken Unknown] hydrocodone-acetaminophen 5-325mg 5mg-325mg 1 tab PO Q4H PRN PRN Pain 2 days #10 TABLETS 10/27/21 [Rx Last Taken Unknown] hydrocodone-acetaminophen 5-325mg 5mg-325mg 1 tab PO Q4H PRN PRN Pain 2 days #10 TABLETS 10/27/21 [Rx Last Taken Unknown] Symbicort 160 mcg-4.5 mcg/actuation HFA aerosol inhaler (budesonide-formoterol) 2 puff inhalation Q12H #10.2 grams 01/10/22 [Rx Last Taken Unknown] Allergy/AdvReac Type Severity Reaction Status Date / Time No Known Allergies Allergy Verified 01/30/22 00:00 Family History Mother CAD (coronary artery disease) Diabetes Hypertension Myocardial infarction Asthma Father CAD (coronary artery disease) Diabetes Hypertension Myocardial infarction Brother Hypertension Asthma Grandfather Asthma COPD (chronic obstructive pulmonary disease) Surgical History History of appendectomy History of coronary artery stent placement (04/30/18) History of left heart catheterization (12/05/18) Presence of automatic implantable cardioverter-defibrillator (06/28/17) Social History Smoking Status: Current every day smoker tobacco type: cigarettes Tobacco: How many years used: 10 Smokeless tobacco user: other Electronic Cigarette Use: not used second hand exposure: Yes alcohol intake: never substance use type: marijuana caffeine: Yes Type: carbonated beverages and tea ROS Review of Systems ROS Unobtainable: due to mental status Vital Signs Vital Signs Vital Signs: 01/30/22 00:00 01/30/22 00:03 01/30/22 00:15 Temperature 97.7 F L Temperature Source Oral Pulse Rate 105 H 103 H Respiratory Rate 25 H 21 H Respiratory Depth Normal Respiratory Pattern Tachypnea Blood Pressure Blood Pressure Mean Pulse Ox 98 Oxygen Delivery Method Room Air Room Air Oxygen Flow Rate (L/min) 01/30/22 01:20 01/30/22 01:30 01/30/22 02:12 Temperature Temperature Source Pulse Rate 102 H 105 H 92 Respiratory Rate 24 H 30 H Respiratory Depth Respiratory Pattern Blood Pressure 163/106 H 171/98 H Blood Pressure Mean 122 Pulse Ox 94 Oxygen Delivery Method Nasal Cannula Oxygen Flow Rate (L/min) 2 01/30/22 02:13 Temperature Temperature Source Pulse Rate Respiratory Rate Respiratory Depth Respiratory Pattern Blood Pressure Blood Pressure Mean Pulse Ox 96 Oxygen Delivery Method Room Air Oxygen Flow Rate (L/min) Weight Weight: 92 kg Body Mass Index (BMI) 27.5 Physical Exam Narrative Physical exam: General: Well-nourished, well-developed. Head: Normocephalic, atraumatic, no tenderness Eyes: Conjunctiva lymph injection. Vision is grossly intact. ENT, no trauma, moist mucous membranes, no rhinorrhea CVS: Regular rate and rhythm. S1-S2 present. No murmur, gallop or rub. Respiratory : clear to auscultation bilaterally, chest wall nontender, no wheezing Abdomen: Soft, nontender, nondistended, normal bowel sounds, no masses : Deferred Back: Nontender, no CVA tenderness. Extremities: Nontender full range of motion, no trauma Skin: Normal color, no trauma, abrasions Neuro: Lethargic. Did not follow commands to check cranial nerves Psychiatry: Lethargic Results Lab / Micro Data Result Diagrams: 01/30/22 00:35 01/30/22 00:35 Labs: Laboratory Results - last 24 hr 01/30/22 00:35: WBC 9.7, RBC 5.11, Hgb 15.5, Hct 45.1, MCV 88.3, MCH 30.3, MCHC 34.4, RDW Std Deviation 39.4, RDW Coeff of Brandi 12.1, Plt Count 183, MPV 10.9, Immature Gran % (Auto) 0.400, Neut % (Auto) 69.3, Lymph % (Auto) 22.5, [place] % (Auto) 5.8, Eos % (Auto) 1.7, Baso % (Auto) 0.3, Absolute Neuts (auto) 6.7, Absolute Lymphs (auto) 2.17, Nucleated RBC % 0 01/30/22 00:35: Sodium 133 L, Potassium 4.6, Chloride 98, Carbon Dioxide 26.0, Anion Gap 9, BUN 10, Creatinine 1.04, Estim Creat Clear Calc 99.49, Est GFR (MDRD) Af Amer 100, Est GFR (MDRD) Non-Af 82, BUN/Creatinine Ratio 9.6 L, Glucose 474 H*, Calcium 9.2, Troponin I High Sens 49 01/30/22 00:35: B-Natriuretic Peptide 562.4 H 01/30/22 02:43: POC Glucose 480 H* Micro: Microbiology 01/30/22 00:52 Nasal Secretion SARS-CoV-2 Antigen (Rapid) - Final ABG Data ABG results: ABG 01/30/22 00:57 Specimen Type ART Sample Site L Radial pH 7.41 Bicarbonate Actual 25.4 Total CO2 27 Base Excess 1 O2 Saturation 91 L ABG pCO2 39.9 ABG pO2 60 L Sami Test Positive O2 Delivery Device Room Air Radiology Impression Chest X-Ray 01/30/22 00:30 IMPRESSION: Early congestive heart failure as described. 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 At the time of hospital examination patient oxygen saturation on room air was 96%. Place on monitored bed on progressive care unit Weight on admission to the floor; and then daily Strict I&O's CXR with bilateral opacities. I agree with radiologist interpretation of early congestive heart failure. BNP on presentation was 562.4. His BNP about 2 weeks ago was 482.8. Patient had previous BNP's in the 1000's. Unclear whether patient is compliant with home medications. Resume previous guideline directed medical therapy for CHF. Lasix 40 mg IV push ordered. Potassium presentation was 4.6. Trend BMP Echocardiogram on 12/05/2018 showed estimated ejection fraction of 10%. Right ventricular systolic pressure at a time was 54 mmHg. Cardiac catheterization on 12/05/2018 showed a previously known occluded left circumflex stent. Transthoracic echocardiogram to evaluate left ventricular wall motion and systolic function. Fluid restriction of 1500 ml/daily Cardiac diabetic diet ordered Diabetes mellitus Patient with severe hyperglycemia on presentation Received lispro at emergency department. Had Solu-Medrol at emergency department [place] increase his blood glucose. Basal insulin ordered. Monitor Accu-Cheks Correction scale insulin ordered. Metformin is on home med list. Unclear whether patient takes. Will resume metformin at this time Acute encephalopathy polysubstance abuse Review of previous records. Urine toxicology on 07/06/2021 was positive for amphetamines; MDMA; urine cocaine; and cannabinoids. We will repeat urine toxicology. DVT prophylaxis Subcutaneous Lovenox ordered. Charges/Coding Visit Charges Inpatient E&M: 73889 Init Hosp L3
--- NOTE | 2022-01-30 04:14 | ECHOD_ITS ---
Reason For Study: CHF Procedure This was a 2D Doppler, Color Flow transthoracic echocardiogram. Technically difficult due to patient being unable to sit still or stay awake. Exam performed portable in patient room. Left Ventricle Moderately dilated left ventricle. The estimated ejection fraction is 12 %. There are regional wall motion abnormalities as specified. Akinesis noted of the entire anterior wall and apex and lateral wall. Hypokinesis of the basal and mid inferior wall and the basal anteroseptal wall. Right Ventricle Normal RV size. ICD or pacer leads identified within the right ventricle. Normal systolic function. Atria The left atrium is severely enlarged. Normal right atrium. Mitral Valve Normal mitral valve. Mild (1+) eccentric mitral valve insufficiency. Tricuspid Valve Normal tricuspid valve. Mild (1+) tricuspid valve insufficiency. Pulmonary artery systolic pressure is 38 mmHg. Aortic Valve Trisinus/trileaflet aortic valve. Pulmonic Valve Normal pulmonic valve. Great Vessels Normal aortic root. The pulmonary artery is normal size. Normal inferior vena cava. Pericardium/Pleural No pericardial effusion. MMode/2D Measurements & Calculations LVIDd: 6.2 cm IVSd: 1.2 cm LAV(MOD-bp): 122.9 ml LVIDs: 6.0 cm LVPWd: 1.6 cm LAV(MOD-bp) Indexed: 58.7 ml/m2 FS: 3.2 % LAV(MOD-sp2): 116.9 ml LAV(MOD-sp4): 121.4 ml SV(MOD-sp4): 39.3 ml LVAd ap4: 47.7 cm2 LVAd ap2: 50.0 cm2 LVLd ap4: 9.1 cm LVLd ap2: 9.1 cm EDV(MOD-sp4): 206.7 ml EDV(MOD-sp2): 232.6 ml EDV(sp4-el): 212.3 ml EDV(sp2-el): 233.5 ml LVAs ap4: 43.4 cm2 LVAs ap2: 46.2 cm2 LVLs ap4: 9.0 cm LVLs ap2: 9.4 cm ESV(MOD-sp4): 167.5 ml ESV(MOD-sp2): 190.6 ml ESV(sp4-el): 177.4 ml ESV(sp2-el): 192.5 ml EF(MOD-sp4): 19.0 % EF(MOD-sp2): 18.0 % EF(sp4-el): 16.4 % SV(MOD-sp2): 42.0 ml SV(sp4-el): 34.9 ml LA A4 area: 30.8 cm2 LA dimension(2D): 4.6 cm RA A4 area: 13.3 cm2 Time Measurements MV dec time: 0.09 sec Doppler Measurements & Calculations MV E max benjie: 63.9 cm/sec Lat Peak E' Benjie: 5.4 cm/sec Med Peak E' Benjie: 5.9 cm/sec MV A max benjie: 52.7 cm/sec E/E' lat: 11.8 E/E' med: 10.9 MV E/A: 1.2 MV V2 max: 74.3 cm/sec MV dec slope: 841.2 cm/sec2 Ao V2 max: 105.0 cm/sec MV max P.2 mmHg Ao max P.4 mmHg MV V2 mean: 45.7 cm/sec Ao V2 mean: 73.8 cm/sec MV mean P.96 mmHg Ao mean P.5 mmHg MV V2 VTI: 15.5 cm Ao V2 VTI: 15.9 cm LV V1 max: 89.4 cm/sec PA V2 max: 122.7 cm/sec TR max benjie: 273.8 cm/sec LV V1 max P.2 mmHg PA V2 mean: 81.3 cm/sec TR max P.0 mmHg LV V1 mean P.7 mmHg LV V1 mean: 58.8 cm/sec LV V1 VTI: 12.3 cm ECHO/Echo Complete Interpretation Summary Moderately dilated left ventricle. The estimated ejection fraction is 12 %. There are regional wall motion abnormalities as specified. Akinesis noted of the entire anterior wall and apex and lateral wall. Hypokines is of the basal and mid inferior wall and the basal anteroseptal wall. Pulmonary artery systolic pressure is 38 mmHg. Compared to previous study, the left ventricular systolic function is the same. . Ordering Physician: Benjamin Cerna Referring Physician: Tammie Nieves Performed By: Patrica Rogers RCS
--- NOTE | 2022-01-30 04:50 | NURSING ---
This nurse observed some leafy green substance in patients pocket. Pt was also found to have 4 small pieces of something wrapped witih leafy green substance inside. Nurse children's service supervisor was called, and then officer Juan was called to come and obtain the leafy green substance.
--- NOTE | 2022-01-30 04:50 | NURSING ---
Notified by floor staff of strong odor coming from patients belongings and subsequent finding of bag full of some type of leafy substance. Security notified,Maxwell PRINGLE contacted by security. [employer] Officer Juan arrived at hospital and took bag of substance and bag of 4 pieces of brown substance.
[2022-01-30 05:15] LABS: Bedside Glucose 384 mg/dL (74-106)
--- NOTE | 2022-01-30 05:25 | NURSING ---
Unable to obtain any admission questions from patient at this time. Pt will awake when he is touched on the arm and his name is shouted but he will not stay awake to answer any questions.
[2022-01-30 07:11] LABS: Bedside Glucose 388 mg/dL (74-106)
[2022-01-30 07:16] LABS: Absolute Lymphocyte Count 0.56 X10^3/uL (0.83-4.51); Absolute Neutrophil Count 6.1 X10^3/uL (2.0-7.7); Basophil# 0.01 X10^3/uL; Basophil% 0.1 % (0-1); Hematocrit 47.5 % (40-54); Hemoglobin 16.8 g/dL (13.0-16.5); Lymphocyte # 0.56 X10^3/ul (0.83-4.51); Lymphocyte % 8.3 % (19-41); Mean Corp Hgb Conc 35.4 g/dL (32-36); Mean Corpuscular Hgb 31.5 pg (27.0-32.0); Mean Platelet Vol. 10.9 fl (6.2-12.0); Monocyte# 0.07 X10^3/uL; NRBC Flagged by Analyzer 0 % (0-5); Neutrophil # 6.11 X10^3/uL (2.7-7.7); Neutrophil % 90.5 % (47-70); POSITIVE DIFFERENTIAL YES; Platelet Count 188 K/mm3 (150-450); RBC Distribution Width CV 12.2 % (11.6-14.6); Red Blood Count 5.34 M/mm3 (4.6-6.2); White Blood Count 6.8 K/mm3 (4.4-11.0)
[2022-01-30 07:21] LABS: Differential Indicated SCAN CRITERIA MET
[2022-01-30 07:38] LABS: Anion Gap 11 (5-15); BUN 11 mg/dL (7-18); BUN/Creat Ratio 10.5 RATIO (10-20); Calcium,Total 9.3 mg/dL (8.5-10.1); Chloride 98 mmol/L (98-107); Creatinine, Serum 1.05 mg/dL (0.70-1.30); EST Glomerular Filtration Rate 81 mL/min (>60); Est Glom Filt Rate - Afr Amer 99 mL/min (>60); Estimated Creatinine Clearance 98.54 ml/min; Glucose 381 mg/dL (74-106); Potassium 3.6 mmol/L (3.5-5.1); Sodium Level 134 mmol/L (136-145)
[2022-01-30] MEDS: Enoxaparin 40 MG/0.4 ML Syringe SC (08:56)
[2022-01-30] MEDS: Insulin Glargine-YFGN 100 UNIT/ML Pen 20 UNIT SC (08:56)
[2022-01-30] MEDS: 0.9% Saline Lock 10 ML Syringe IV ×2 (08:57→16:59)
[2022-01-30 11:35] LABS: Bedside Glucose 418 mg/dL (74-106)
[2022-01-30] MEDS: Glucerna Shake 120 ML LIQUID PO ×2 (12:14→16:59)
--- NOTE | 2022-01-30 12:35 | PCM.PN.BLA ---
Progress Note Continues to be sleepy but responsive to voice. Will continue treatment for an exacerbation of systolic CHF as well as possible COPD exacerbation. Of note he did have a bag of marijuana in his pocket that was turned over to the police department. He did receive Rocephin and azithromycin in the ER however his lack of white count and fever as well as lack of infiltrate finding on the x-ray, these were discontinued on admission.
[2022-01-30 14:59] LABS: Amphetamine Urine VISTA POSITIVE (<1000 ng/mL); Barbiturate Urine VISTA NEGATIVE (< 200 ng/mL); Benzodiazepine Urine VISTA NEGATIVE (< 200 ng/mL); Cocaine Urine VISTA NEGATIVE (< 300 ng/mL); Ecstacy Urine VISTA NEGATIVE (< 500 ng/mL); Methadone Urine VISTA NEGATIVE (< 300 ng/mL); PCP Urine VISTA NEGATIVE (< 25 ng/mL); THC Urine VISTA POSITIVE (< 50 ng/mL); Vista UDS pH Range 7
[2022-01-30 16:31] LABS: Bedside Glucose 385 mg/dL (74-106)
[2022-01-30] MEDS: Carvedilol 12.5 MG Tablet PO (21:46)
[2022-01-30 22:10] LABS: Bedside Glucose 210 mg/dL (74-106)
[2022-01-31] VITALS (8 sets, daily range): BP systolic 108–127; BP diastolic 82–92; PULSE 77–84; RESP 16–20; TEMP 35.9–36.1; O2SAT 94–98
[2022-01-31 06:37] LABS: Absolute Lymphocyte Count 3.79 X10^3/uL (0.83-4.51); Absolute Neutrophil Count 7.9 X10^3/uL (2.0-7.7); Basophil# 0.03 X10^3/uL; Basophil% 0.2 % (0-1); Eosinophil# 0.04 X10^3/uL; Eosinophils% 0.3 % (0-5); Hematocrit 48.7 % (40-54); Hemoglobin 17.3 g/dL (13.0-16.5); Lymphocyte # 3.79 X10^3/ul (0.83-4.51); Lymphocyte % 30.7 % (19-41); Mean Corp Hgb Conc 35.5 g/dL (32-36); Mean Corpuscular Hgb 31.4 pg (27.0-32.0); Mean Corpuscular Volume 88.4 fL (80-94); Monocyte# 0.61 X10^3/uL; Monocyte% 4.9 % (0-10); NRBC Flagged by Analyzer 0 % (0-5); Neutrophil # 7.86 X10^3/uL (2.7-7.7); Neutrophil % 63.7 % (47-70); Platelet Count 219 K/mm3 (150-450); RBC Distribution Width CV 12.3 % (11.6-14.6); RBC Distribution Width SD 39.8 fl (35.1-43.9); Red Blood Count 5.51 M/mm3 (4.6-6.2); White Blood Count 12.4 K/mm3 (4.4-11.0)
[2022-01-31 07:12] LABS: Anion Gap 9 (5-15); BUN 18 mg/dL (7-18); BUN/Creat Ratio 24.3 RATIO (10-20); Calcium,Total 9.2 mg/dL (8.5-10.1); Chloride 102 mmol/L (98-107); Creatinine, Serum 0.74 mg/dL (0.70-1.30); EST Glomerular Filtration Rate 122 mL/min (>60); Est Glom Filt Rate - Afr Amer 148 mL/min (>60); Estimated Creatinine Clearance 139.82 ml/min; Glucose 206 mg/dL (74-106); Potassium 3.5 mmol/L (3.5-5.1); Sodium Level 136 mmol/L (136-145)
[2022-01-31] MEDS: Insulin Lispro 100 UNIT/ML INSULN.PEN 10 UNIT SC ×2 (07:34→11:04)
[2022-01-31] MEDS: Insulin Lispro 100 UNIT/ML INSULN.PEN SC ×2 (07:34→11:05)
[2022-01-31] MEDS: Glucerna Shake 120 ML LIQUID PO ×2 (07:38→11:03)
[2022-01-31 08:15] LABS: Bedside Glucose 213 mg/dL (74-106)
[2022-01-31] MEDS: Carvedilol 12.5 MG Tablet PO (08:44)
[2022-01-31] MEDS: Losartan Potassium 25 MG Tablet PO (08:44)
[2022-01-31] MEDS: Pantoprazole Sodium 40 MG Tablet PO (08:44)
[2022-01-31] MEDS: Clopidogrel Bisulfate 75 MG Tablet PO (08:44)
[2022-01-31] MEDS: Spironolactone 25 MG Tablet PO (08:45)
[2022-01-31] MEDS: Furosemide 40 MG/4 ML Vial IV (08:45)
[2022-01-31] MEDS: FLU VACC QS2022-23(6MOS UP)/PF 60 MCG/0.5 ML SYRINGE IM (08:46)
[2022-01-31] MEDS: Enoxaparin 40 MG/0.4 ML Syringe SC (08:46)
[2022-01-31] MEDS: Insulin Glargine-YFGN 100 UNIT/ML Pen 35 UNIT SC (08:47)
--- NOTE | 2022-01-31 09:38 | CASEMGMT ---
Per Emma RN,pt does not qualify for home oxygen. CM to follow for any further discharge planning/needs. Rica TEJEDA CM
--- NOTE | 2022-01-31 10:39 | PCM.DC.SUM ---
Providers Date of Admission: 01/30/22 Date of Discharge: 01/31/22 Primary Care Physician: Dr. Tammie Nievse MD Reason For Visit: ACUTE EXACERBATION OF HEART FAILURE W/REDUCED EF Diagnosis Discharge Diagnosis (1) Chronic systolic CHF (congestive heart failure): Status: Chronic Code(s): I50.22 - Chronic systolic (congestive) heart failure (2) Acute encephalopathy: Status: Acute Code(s): G93.40 - Encephalopathy, unspecified (3) Polysubstance abuse: Status: Chronic Code(s): F19.10 - Other psychoactive substance abuse, uncomplicated (4) Type 2 diabetes mellitus: Status: Chronic Code(s): E11.9 - Type 2 diabetes mellitus without complications Qualifiers: Diabetes mellitus complication status: with neurologic complications Diabetes mellitus complication detail: with polyneuropathy 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 mellitus adjunct faculty for medical 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 insulin use: with retirement use Qualified Code(s): E11.42 - Type 2 diabetes mellitus with diabetic polyneuropathy; Z79.4 - long term care administrator (current) use of insulin Medications at Discharge Home Medications blood pressure monitor #1 ea 05/31/19 Handicap Placard #1 ea 07/23/20 nebulizer accessories #1 ea 04/22/21 nebulizers (Aeroneb Go Nebulizer) #1 ea 04/22/21 blood sugar diagnostic #100 ea 07/30/21 lancets 28 gauge (FreeStyle Lancets) #200 ea 07/30/21 pen needle, diabetic 31 gauge x 5/16 (1st Tier Unifine Pentips) #100 ea 07/30/21 aspirin 81 mg tablet,delayed release 81 mg PO ONCE stroke prevention 01/30/22 metformin 1,000 mg 24 hr tablet,extended release 1,000 mg PO BID blood sugar 01/30/22 albuterol sulfate 90 mcg/actuation aerosol inhaler 1 puff inhalation Q6H PRN PRN Sob &/Or Wheezing #8.5 grams 01/31/22 budesonide-formoterol HFA 160 mcg-4.5 mcg/actuation aerosol inhaler (Symbicort) 2 puff inhalation Q12H lungs #10.2 grams 01/31/22 carvedilol 12.5 mg tablet 12.5 mg PO BID heart/bp #60 tabs 01/31/22 clopidogrel 75 mg tablet 75 mg PO DAILY prevent stroke #1 TAB 01/31/22 furosemide 40 mg tablet (Lasix) 40 mg PO DAILY #30 tabs 01/31/22 insulin lispro protamine-lispro 100 unit/mL (50-50) subcutaneous pen (Humalog Mix 50-50 KwikPen) 45 unit (0.45 mL) subcut BID blood sugar #15 mL 01/31/22 losartan 25 mg tablet 25 mg PO DAILY blood pressure #30 tabs 01/31/22 magnesium oxide 400 mg (241.3 mg magnesium) tablet 400 mg PO BID supplement #60 tabs 01/31/22 pantoprazole 40 mg tablet,delayed release 40 mg PO DAILY PPI #30 tabs 01/31/22 potassium chloride 20 mEq tablet,extended release 20 meq PO DAILY replacement ##30 01/31/22 spironolactone 25 mg tablet 25 mg PO DAILY water pill #30 tabs 01/31/22 Hospital Course Operations None Procedures EKG Summary of Care Provided Minutes Spent on Discharge: 34 Hospital Course: Mr. Mora is a 46-year-old -[place] male who presented to emergency department at [facility] on 01/30/2022 early in the morning complaining of shortness of breath. He has a known history of HFrEF and an AICD with ejection fraction of 10% on most recent echocardiogram. He also has a known history of polysubstance abuse and his talk screen on admission was positive for methamphetamines. The patient states he does not use them but he distributes them. His oxygen saturation was found to be 88% on arrival and he was placed on 2 L nasal cannula. He is very reluctant to add any history. Evidently on exam he had some wheezing and was given supplemental oxygen, nebulizers, steroids, antibiotics, and Lasix. He was also placed on Nitropaste at that time. CBC at the time admission was completely unremarkable his chemistry panel was overall unremarkable other than pseudohyponatremia related to markedly elevated blood glucose level at 474. His BNP was 562.4 and his chest x-ray showed interstitial curly B-lines and central vessel fullness consistent with early congestive heart failure. The patient was admitted to the PCU and placed on aggressive diuresis. Within the first 24 hours he diuresed just under 1 L of fluids and was down a little over 1 kg. He was assessed on room air oxygen and was found to be 98% at rest and 96% with exertion. He had no significant edema and his lung sounds improved. COVID-19 testing was negative on admission and blood cultures were obtained but negative at 24 hours. Given his marked improvement and no further need for supplemental oxygen it was felt he was stable for discharge home. The patient indicated he ran out of all of his home medications and a 1 month supply was given in addition to a prescription for 40 mg Lasix daily p.o. 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 His toxicology screen as noted above, was positive for methamphetamines. We did strongly encourage him not to use any substances as it is felt that these are probably precipitating worsening heart failure. We also instructed him on daily weighing, salt restriction and fluid restriction. He is to follow-up with his primary care physician within 1 week and specialist as noted above within 1 month. Discharge diagnoses: Acute hypoxia secondary to decompensated HFrEF HFrEF decompensated-resolved DM-2 with hyperglycemia CAD Hypertension GERD COPD Polysubstance abuse Tobacco abuse KATHIE-noncompliant Medical nonadherence Physical Exam Const oriented x3, no apparent distress, average body habitus and well nourished Constitutional Narrative: Middle-aged -[place] male lying in bed, sleeping but awakens easily, nontoxic, on room air and appears comfortable lying flat General Appearance: cooperative, comfortable, well kempt and well developed Orientation / Consciousness: awake Exam Limitations: no limitations HEENT normocephalic, head/scalp atraumatic and hearing grossly normal bilaterally Resp normal respiratory effort and no retractions Resp Narrative: Diminished diffusely mild but clear Auscultation: Negative for crackles, rales, rhonchi or wheezes Cardio regular rate, regular rhythm, S1 normal heart sound, S2 normal heart sound, no murmurs, no rub, no gallops, no clicks and no JVD GI normal to inspection, nondistended, normoactive bowel sounds, soft to palpation and non-tender Extremity no clubbing, cyanosis or edema Neuro oriented x3, CN's II-XII intact bilaterally, moves all extremities and no focal motor deficits Speech: speech normal Psych Psych Narrative: Affect is flat Medical Records Data Medical Nutrition Assessment Dietitian: Malnutrition Criteria Met Start: 01/30/22 11:37 Freq: Status: Active Protocol: Document 01/30/22 11:37 RMA (Rec: 01/30/22 11:38 RMA [id number]) Nutrition Malnutrition Evidence of Malnutrition Exists Yes Malnutrition (severe): Chronic Evidenced By Suboptimal Energy Intake ( Severe),Weight Loss (Severe) Clinical Problem Chronic Disease or Condition Related Malnutrition Etiology moderate to severe pro/vee malnutrition in the context of chronic disease related to substance abuse and inadequate oral intake Signs/Symptoms as evidenced by ~10-15% wt loss x past 6-8 months and PO meeting less than 50% estimated nutrition needs x past 4-6 months per pt report Status Active Problem Recommendation Dietitian Recommendations/Changes Will adjust diet to 2000 calorie/consistent carbohydrate; cardiac/sodium- restricted with 1500 ml/ day fluid restriction. Will add 120 ml glucerna shake TID w/ medpass as tolerated. Weight / BMI Weight Weight: 86.183 kg Body Mass Index (BMI) 26.0 ABG / Lab / Microbiology Data Result Diagrams: 01/31/22 05:59 01/31/22 05:59 Laboratory: Laboratory Results - last 24 hr 01/30/22 11:15: POC Glucose 418 H 01/30/22 14:30: Urine Opiates Screen NEGATIVE, Urine Methadone Screen NEGATIVE, Ur Barbiturates Screen NEGATIVE, Ur Phencyclidine Scrn NEGATIVE, Ur Amphetamines Screen POSITIVE H, MDMA (Ecstasy) Screen NEGATIVE, U Benzodiazepines Scrn NEGATIVE, Urine Cocaine Screen NEGATIVE, U Cannabinoids Screen POSITIVE H, Ur Drug Screen Comment 01/30/22 16:07: POC Glucose 385 H 01/30/22 21:42: POC Glucose 210 H 01/31/22 05:59: WBC 12.4 H, RBC 5.51, Hgb 17.3 H, Hct 48.7, MCV 88.4, MCH 31.4, MCHC 35.5, RDW Std Deviation 39.8, RDW Coeff of Brandi 12.3, Plt Count 219, MPV 11.0, Immature Gran % (Auto) 0.200, Neut % (Auto) 63.7, Lymph % (Auto) 30.7, Dickey % (Auto) 4.9, Eos % (Auto) 0.3, Baso % (Auto) 0.2, Absolute Neuts (auto) 7.9 H, Absolute Lymphs (auto) 3.79, Nucleated RBC % 0 01/31/22 05:59: Sodium 136, Potassium 3.5, Chloride 102, Carbon Dioxide 25.0, Anion Gap 9, BUN 18, Creatinine 0.74, Estim Creat Clear Calc 139.82, Est GFR (MDRD) Af Amer 148, Est GFR (MDRD) Non-Af 122, BUN/Creatinine Ratio 24.3 H, Glucose 206 H, Calcium 9.2 01/31/22 07:28: POC Glucose 213 H Microbiology: Microbiology 01/30/22 00:52 Nasal Secretion SARS-CoV-2 Antigen (Rapid) - Final Meaningful Use Info Meaningful Use Diagnoses (Choose all that apply): None applicable Discharge Plan Admission Admit Date/Time: 01/30/22 02:50 Primary Reason for Your Visit: Shortness of Breath Attending Provider: Mai Bentley Primary Care Provider: Tammie Nieves Consulting Providers: Benjamin Cerna ; Brice Carreon Instructions Additional Instructions / Restrictions: 1. Highly recommend tobacco cessation, cessation of meth use, cessation of marijuana use Discharge Orders/Prescriptions Prescriptions: New furosemide [Lasix] 40 mg tablet 40 mg PO DAILY Qty: 30 0RF Continued (DME) Handicap Placard See Rx Instructions .Route .MEDSUPPLY Qty: 1 0RF Rx Instructions: Good from 07/23/2020-07/23/2025 aspirin 81 mg tablet,delayed release (DR/EC) 81 mg PO ONCE metformin 1,000 mg tablet,ER shelby.retention 24 hr 1,000 mg PO BID carvedilol 12.5 mg tablet 12.5 mg PO BID Qty: 60 0RF Rx Instructions: must administer with a meal/food clopidogrel 75 mg tablet 75 mg PO DAILY Qty: 1 0RF spironolactone 25 mg tablet 25 mg PO DAILY Qty: 30 0RF magnesium oxide 400 mg (241.3 mg magnesium) tablet 400 mg PO BID Qty: 60 0RF pantoprazole 40 mg tablet,delayed release (DR/EC) 40 mg PO DAILY Qty: 30 0RF losartan 25 mg tablet 25 mg PO DAILY Qty: 30 0RF albuterol sulfate 90 mcg/actuation HFA aerosol inhaler 1 puff INHALATION Q6H PRN PRN (Reason: Sob &/Or Wheezing) Qty: 8.5 1RF Humalog Mix 50-50 KwikPen 100 unit/mL (50-50) insulin pen 45 unit SC BID Qty: 15 0RF budesonide-formoterol [Symbicort] 160-4.5 mcg/actuation HFA aerosol inhaler 2 puff INHALATION Q12H Qty: 10.2 0RF potassium chloride 20 mEq tablet extended release 20 meq PO DAILY Qty: 30 0RF (DME) blood pressure monitor Kit See Rx Instructions .ROUTE .MEDSUPPLY Qty: 1 0RF Rx Instructions: Check blood pressure daily for hypertension I10 (DME) nebulizer accessories Misc See Rx Instructions .ROUTE .MEDSUPPLY Qty: 1 0RF Rx Instructions: As directed (DME) Aeroneb Go Nebulizer Misc See Rx Instructions .ROUTE .MEDSUPPLY Qty: 1 0RF Rx Instructions: As directed (DME) blood sugar diagnostic Strip See Rx Instructions .ROUTE .MEDSUPPLY Qty: 100 5RF Rx Instructions: One Touch - As directed 3 x DAILY for Diabetes (E11.9) (DME) lancets [FreeStyle Lancets] 28 gauge misc See Dose Instructions .Route .MEDSUPPLY Qty: 200 3RF Dose Instruction: Check blood glucose daily for type 2 DM Rx Instructions: Check blood glucose daily for type 2 DM 3x daily (DME) pen needle, diabetic [1st Tier Unifine Pentips] 31 gauge x 5/16 needle See Rx Instructions .ROUTE .MEDSUPPLY Qty: 100 3RF Rx Instructions: As directed 4x DAILY BD BRAND Discontinued albuterol sulfate 2.5 mg /3 mL (0.083 %) solution for nebulization 2.5 mg INHALATION Q2H PRN PRN (Reason: dyspnea, wheezing) Qty: 90 3RF Referrals / Follow Up: Raghu Hdez MD [Med Staff - Active Staff] - Within 1 Month Tammie Nieves MD [Primary Care Provider] - Within 1 Week Romelia Ricci NP, DIGITAL EDITOR-C [Non-Staff -Ordering Privileges] - Within 1 Month Disposition Disposition (needs filled in before D/C Order can be placed): Home, Self Care Charges/Coding Visit Charges Inpatient E&M: 18883 Disch Hosp
--- NOTE | 2022-01-31 10:54 | CASEMGMT ---
ILEANA GUAJARDO assessment: Face to Face with patient for initial transition planning/care coordination assessment. ILEANA GUAJARDO introduced self and role at [facility], pt voices understanding and consents to assessment at this time. Pt is lying in bed drifting in and out of sleep during assessment. Pt does answer some questions when awakes. Pt is A/Ox4 at this time. Care providers, pharmacy, and demographics verified at this time. PCP: Ezequiel Specialists: Pt states no current specialists. Preferred Pharmacy: [facility] Insurance: [employer] Prescription Benefit: [employer] Living Will/HPOA: Pt states does not have LW/HPOA and pt declines info at this time. LNOK: Betsy Prabhakardarell, sig other Living Arrangements: Pt states no concerns at home and is independent with ADL's. Transportation: Pt does not but sig other does and states no transportation concerns at this time. DME/HHC: Pt has and uses nebulizer at home. Pt states no need for any further DME at this time. Pt has no hx of HHC or SNF in the past. Pt states no concerns with pt going home at time of discharge. Pt is currently unemployed. Pt does smoke 3-5cigarettes daily and does smoke marijuana daily. Pt does drink ETOH occasionally and pt states has not used cocaine 'since last visit, but I touch it.' Pt did previously have CM thru Medicaid, Ros[place]. Pt voice no further questions/concerns/needs at this time. CM to follow for any further discharge planning/needs. Advised pt to ask for CM if any further questions/concerns/needs arise, voices understanding. Pt Goal: Home Plan: Home [place] ILEANA GUAJARDO
--- NOTE | 2022-01-31 11:05 | PHA.DC.MR ---
Pharmacy Service has performed discharge medication reconciliation for this patient. The patient's discharge medication list was reviewed for discrepancies and discrepancies were resolved. Home Medications blood pressure monitor #1 ea 05/31/19 Handicap Placard #1 ea 07/23/20 nebulizer accessories #1 ea 04/22/21 nebulizers (Aeroneb Go Nebulizer) #1 ea 04/22/21 blood sugar diagnostic #100 ea 07/30/21 lancets 28 gauge (FreeStyle Lancets) #200 ea 07/30/21 pen needle, diabetic 31 gauge x 5/16 (1st Tier Unifine Pentips) #100 ea 07/30/21 aspirin 81 mg tablet,delayed release 81 mg PO ONCE stroke prevention 01/30/22 metformin 1,000 mg 24 hr tablet,extended release 1,000 mg PO BID blood sugar 01/30/22 albuterol sulfate 90 mcg/actuation aerosol inhaler 1 puff inhalation Q6H PRN PRN Sob &/Or Wheezing #8.5 grams 01/31/22 budesonide-formoterol HFA 160 mcg-4.5 mcg/actuation aerosol inhaler (Symbicort) 2 puff inhalation Q12H lungs #10.2 grams 01/31/22 carvedilol 12.5 mg tablet 12.5 mg PO BID heart/bp #60 tabs 01/31/22 clopidogrel 75 mg tablet 75 mg PO DAILY prevent stroke #1 TAB 01/31/22 furosemide 40 mg tablet (Lasix) 40 mg PO DAILY #30 tabs 01/31/22 insulin lispro protamine-lispro 100 unit/mL (50-50) subcutaneous pen (Humalog Mix 50-50 KwikPen) 45 unit (0.45 mL) subcut BID blood sugar #15 mL 01/31/22 losartan 25 mg tablet 25 mg PO DAILY blood pressure #30 tabs 01/31/22 magnesium oxide 400 mg (241.3 mg magnesium) tablet 400 mg PO BID supplement #60 tabs 01/31/22 pantoprazole 40 mg tablet,delayed release 40 mg PO DAILY PPI #30 tabs 01/31/22 potassium chloride 20 mEq tablet,extended release 20 meq PO DAILY replacement ##30 01/31/22 spironolactone 25 mg tablet 25 mg PO DAILY water pill #30 tabs 01/31/22
[2022-01-31 11:25] LABS: Bedside Glucose 301 mg/dL (74-106)
--- NOTE | 2022-01-31 14:53 | CASEMGMT ---
This ILEANA GUAJARDO received fax from [employer] stating that Symbicort needs prior auth. [facility] and per rep, they were unable to fill Symbicort because he just filled that med on 01/10/22. Per rep, it should fill again on 02/09/22 without any concerns. [place] ILEANA GUAJARDO
== END 2022-01-31 13:11 | disposition home or self-care (01) | DRG 194 ==
LOC: ED 01-30 02:43 → PCU 01-30 03:48
PROVIDERS: Family Medicine; Admitting Provider Hospitalist; Emergency Provider Emergency Medicine; PCP Internal Medicine; Visit Provider Internal Medicine
DX: I11.0 Hypertensive heart disease with heart failure (principal); J44.1 Chronic obstructive pulmonary disease with (acute) exacerbation; E11.42 Type 2 diabetes mellitus with diabetic polyneuropathy; Z79.4 Long term (current) use of insulin; I50.23 Acute on chronic systolic (congestive) heart failure; E11.65 Type 2 diabetes mellitus with hyperglycemia; F15.10 Other stimulant abuse, uncomplicated; F17.210 Nicotine dependence, cigarettes, uncomplicated; I25.5 Ischemic cardiomyopathy; I25.10 Atherosclerotic heart disease of native coronary artery without angina pectoris; E78.5 Hyperlipidemia, unspecified; K21.9 Gastro-esophageal reflux disease without esophagitis; G47.33 Obstructive sleep apnea (adult) (pediatric); F12.10 Cannabis abuse, uncomplicated; I25.2 Old myocardial infarction; R09.02 Hypoxemia; Z95.810 Presence of automatic (implantable) cardiac defibrillator; Z91.199 Patient's noncompliance with other medical treatment and regimen due to unspecified reason; Z79.02 Long term (current) use of antithrombotics/antiplatelets; Z79.82 Long term (current) use of aspirin; Z79.84 Long term (current) use of oral hypoglycemic drugs; Z79.51 Long term (current) use of inhaled steroids; Z79.899 Other long term (current) drug therapy; Z23 Encounter for immunization
CPT/HCPCS: 36415; 36600; 71045; 80048; 80307; 82803; 82962; 83880; 84484; 85025; 87040; 87811; 93005; 93306; 94640; 97802; 99285; 99406; J7050; 90686; A4216; J1940

== ENCOUNTER 2022-02-08 21:05 | Outpatient (REF) | payer SELFPAY ==
[2020-04-10 09:35] VITALS: BMI 25.9
[2022-02-08 21:10] VITALS: BP 113/77; PULSE 61; RESP 18; TEMP 37.2; BMI 27.0
[2022-02-08] MEDS: Dextrose 50%-Water 25 GM/50 ML DISP.SYRIN IV (21:23)
--- NOTE | 2022-02-08 22:05 | EX.ED.DYSGE1 ---
HPI History of Present Illness Chief Complaint: Chest Pain Detail of Chief Complaint: Hypoglycemia not chest pain Informant: patient Onset/Context/Timing Onset: Hours Context: Sudden Onset Timing: Continuous Quality: Diaphoresis and not feeling right. EMS blood sugar 27 Location: Endocrine Current Severity: Severe Maximum Severity: Severe Worsened by: Decreased p.o. intake because food is terrible . Relieved by: D50 and cookies. Associated Symptoms Associated Symptoms: Diaphoresis, altered sensation and decreased level of consciousness Narrative Narrative: Patient is a 46-year-old male with type 2 diabetes. He is on oral agents only. He did not eat much today. He states he has not eaten well the past couple days. He states the food at the senior living is terrible . He goes he does not like it. He has no other complaints other than altered mental status. Prior similar symptoms: Yes Recent Illness/Hospitalization: No PFSH [facility] Medical History Anxiety and depression Atherosclerosis of coronary artery of [place] heart without angina pectoris Bipolar I disorder with depression Chronic constipation Chronic systolic CHF (congestive heart failure) Depression Diabetes Elevated liver enzymes Essential hypertension Flu vaccine need Hepatitis B History of non-ST elevation myocardial infarction (NSTEMI) (07/2018) Hyperlipidemia ICD (implantable cardioverter-defibrillator) discharge Ischemic cardiomyopathy Nicotine dependence Peripheral neuropathy Polyneuropathy due to type 2 diabetes mellitus Polysubstance abuse Severe left ventricular systolic dysfunction Type 2 diabetes mellitus Home Medications blood pressure monitor #1 ea 05/31/19 [Rx Last Taken Unknown] Handicap Placard #1 ea 07/23/20 [Rx Last Taken Unknown] nebulizer accessories #1 ea 04/22/21 [Rx Last Taken Unknown] nebulizers (Aeroneb Go Nebulizer) #1 ea 04/22/21 [Rx Last Taken Unknown] blood sugar diagnostic #100 ea 07/30/21 [Rx Last Taken Unknown] lancets 28 gauge (FreeStyle Lancets) #200 ea 07/30/21 [Rx Last Taken Unknown] pen needle, diabetic 31 gauge x 5/16 (1st Tier Unifine Pentips) #100 ea 07/30/21 [Rx Last Taken Unknown] aspirin 81 mg tablet,delayed release 81 mg PO ONCE stroke prevention 01/30/22 [History Last Taken Unknown] metformin 1,000 mg 24 hr tablet,extended release 1,000 mg PO BID blood sugar 01/30/22 [History Last Taken Unknown] albuterol sulfate 90 mcg/actuation aerosol inhaler 1 puff inhalation Q6H PRN PRN Sob &/Or Wheezing #8.5 grams 01/31/22 [Rx Last Taken Unknown] budesonide-formoterol HFA 160 mcg-4.5 mcg/actuation aerosol inhaler (Symbicort) 2 puff inhalation Q12H lungs #10.2 grams 01/31/22 [Rx Last Taken Unknown] carvedilol 12.5 mg tablet 12.5 mg PO BID heart/bp #60 tabs 01/31/22 [Rx Last Taken Unknown] clopidogrel 75 mg tablet 75 mg PO DAILY prevent stroke #1 TAB 01/31/22 [Rx Last Taken Unknown] furosemide 40 mg tablet (Lasix) 40 mg PO DAILY #30 tabs 01/31/22 [Rx Last Taken Unknown] insulin lispro protamine-lispro 100 unit/mL (50-50) subcutaneous pen (Humalog Mix 50-50 KwikPen) 45 unit (0.45 mL) subcut BID blood sugar #15 mL 01/31/22 [Rx Last Taken Unknown] losartan 25 mg tablet 25 mg PO DAILY blood pressure #30 tabs 01/31/22 [Rx Last Taken Unknown] magnesium oxide 400 mg (241.3 mg magnesium) tablet 400 mg PO BID supplement #60 tabs 01/31/22 [Rx Last Taken Unknown] pantoprazole 40 mg tablet,delayed release 40 mg PO DAILY PPI #30 tabs 01/31/22 [Rx Last Taken Unknown] potassium chloride 20 mEq tablet,extended release 20 meq PO DAILY replacement ##30 01/31/22 [Rx Last Taken Unknown] spironolactone 25 mg tablet 25 mg PO DAILY water pill #30 tabs 01/31/22 [Rx Last Taken Unknown] Allergy/AdvReac Type Severity Reaction Status Date / Time No Known Allergies Allergy Verified 01/30/22 00:00 Family History Mother CAD (coronary artery disease) Diabetes Hypertension Myocardial infarction Asthma Father CAD (coronary artery disease) Diabetes Hypertension Myocardial infarction Brother Hypertension Asthma Grandfather Asthma COPD (chronic obstructive pulmonary disease) Surgical History History of appendectomy History of coronary artery stent placement (04/30/18) History of left heart catheterization (12/05/18) Presence of automatic implantable cardioverter-defibrillator (06/28/17) Social History Smoking Status: Current every day smoker tobacco type: cigarettes Tobacco: How many years used: 10 Smokeless tobacco user: other Electronic Cigarette Use: not used second hand exposure: Yes alcohol intake: never substance use type: marijuana caffeine: Yes Type: carbonated beverages and tea ROS ROS ED Constitutional Constitutional ED: Denies chills, fever(s), subjective or sweats Eyes Eyes: Reports blurry vision bilateral and change in vision bilateral; Denies diplopia ENT ENT ED: Denies ear pain, rhinorrhea or sore throat Cardiovascular Cardiovascular: Reports palpitations; Denies chest pain or racing heartbeat Respiratory/Chest Respiratory/Chest: Denies cough, dyspnea or dyspnea on exertion Gastrointestinal Gastrointestinal: Reports nausea; Denies abdominal pain or vomiting Endocrine Endocrinology: Denies polydipsia, polyphagia or polyuria Hematologic/Lymphatic Hematologic/Lymphatic: Reports systems reviewed and no addt'l complaints, except as documented and none EXAM Physical Exam Const Vital Signs: 02/08/22 21:10 Temperature 98.9 F Temperature Source Temporal Pulse Rate 61 Respiratory Rate 18 Blood Pressure 113/77 Blood Pressure Mean 89 Oxygen Delivery Method Room Air Positive well nourished and well developed Constitutional Narrative: Patient is altered mental status and diaphoresis. General Appearance ED: well developed; Negative for NAD or pallor HEENT Reports moist mucous membranes HEENT Narrative: Head is atraumatic normocephalic. Ears normal. Nares patent. Uvula midline. No erythema or exudate the posterior pharynx. Eyes PERRL and EOMs intact bilaterally General Eye ED: Negative for pale conjunctiva or scleral icterus Neck no lymphadenopathy, supple and no JVD Resp normal respiratory effort and clear to auscultation bilaterally Cardio regular rate, regular rhythm, S1 normal heart sound, S2 normal heart sound and no murmurs GI normal to inspection, nondistended, normoactive bowel sounds Neuro oriented x3 and no sensory deficits noted Sensorium / Orientation: alert Motor Exam: strength 5/5 throughout Psych mental status grossly normal Skin General Skin Exam: Negative for jaundice or pallor MDM MDM MDM Narrative Medical decision making narrative: IV was established. He was given D50. He was given cookies. Patient's blood sugar after treatment was 249. Patient was reassessed at 06/02/2005. He states he feels markedly better. He asked for more cookies. Discharge Plan Triage Chief Complaint: Chest Pain ED Provider: Elmer Mckeon Dx/Rx/DC Orders Clinical Impression: Acute alteration in mental status, Hypoglycemia associated with type 2 diabetes mellitus Instructions: ED Hypoglycemia Oral Diabetic ... Prescriptions: No Action (DME) Handicap Placard See Rx Instructions .Route .MEDSUPPLY Qty: 1 0RF Rx Instructions: Good from 07/23/2020-07/23/2025 aspirin 81 mg tablet,delayed release (DR/EC) 81 mg PO ONCE metformin 1,000 mg tablet,ER [place].retention 24 hr 1,000 mg PO BID furosemide [Lasix] 40 mg tablet 40 mg PO DAILY Qty: 30 0RF carvedilol 12.5 mg tablet 12.5 mg PO BID Qty: 60 0RF Rx Instructions: must administer with a meal/food clopidogrel 75 mg tablet 75 mg PO DAILY Qty: 1 0RF spironolactone 25 mg tablet 25 mg PO DAILY Qty: 30 0RF magnesium oxide 400 mg (241.3 mg magnesium) tablet 400 mg PO BID Qty: 60 0RF pantoprazole 40 mg tablet,delayed release (DR/EC) 40 mg PO DAILY Qty: 30 0RF losartan 25 mg tablet 25 mg PO DAILY Qty: 30 0RF albuterol sulfate 90 mcg/actuation HFA aerosol inhaler 1 puff INHALATION Q6H PRN PRN (Reason: Sob &/Or Wheezing) Qty: 8.5 1RF Humalog Mix 50-50 KwikPen 100 unit/mL (50-50) insulin pen 45 unit SC BID Qty: 15 0RF budesonide-formoterol [Symbicort] 160-4.5 mcg/actuation HFA aerosol inhaler 2 puff INHALATION Q12H Qty: 10.2 0RF potassium chloride 20 mEq tablet extended release 20 meq PO DAILY Qty: 30 0RF (DME) blood pressure monitor Kit See Rx Instructions .ROUTE .MEDSUPPLY Qty: 1 0RF Rx Instructions: Check blood pressure daily for hypertension I10 (DME) nebulizer accessories Misc See Rx Instructions .ROUTE .MEDSUPPLY Qty: 1 0RF Rx Instructions: As directed (DME) Aeroneb Go Nebulizer Misc See Rx Instructions .ROUTE .MEDSUPPLY Qty: 1 0RF Rx Instructions: As directed (DME) blood sugar diagnostic Strip See Rx Instructions .ROUTE .MEDSUPPLY Qty: 100 5RF Rx Instructions: One Touch - As directed 3 x DAILY for Diabetes (E11.9) (DME) lancets [FreeStyle Lancets] 28 gauge misc See Dose Instructions .Route .MEDSUPPLY Qty: 200 3RF Dose Instruction: Check blood glucose daily for type 2 DM Rx Instructions: Check blood glucose daily for type 2 DM 3x daily (DME) pen needle, diabetic [1st Tier Unifine Pentips] 31 gauge x 5/16 needle See Rx Instructions .ROUTE .MEDSUPPLY Qty: 100 3RF Rx Instructions: As directed 4x DAILY BD BRAND Primary Care Provider: Tammie Nieves Referrals: Tammie Nieves MD [Primary Care Provider] - As Needed Disposition Disposition: Home, Self Care
[2022-02-08 22:06] LABS: Bedside Glucose 249 mg/dL (74-106)
[2022-02-08 22:19] VITALS: BP 105/77; PULSE 70; RESP 17; O2SAT 99
[2022-02-08 22:40] LABS: Bedside Glucose 172 mg/dL (74-106)
== END 2022-02-08 22:31 | disposition home or self-care (01) ==
LOC: ED 21:05
PROVIDERS: PCP Internal Medicine; Visit Provider Emergency Medicine
DX: R41.82 Altered mental status, unspecified (principal); I50.22 Chronic systolic (congestive) heart failure; I11.0 Hypertensive heart disease with heart failure; E11.649 Type 2 diabetes mellitus with hypoglycemia without coma; E11.42 Type 2 diabetes mellitus with diabetic polyneuropathy; F17.210 Nicotine dependence, cigarettes, uncomplicated; I25.10 Atherosclerotic heart disease of native coronary artery without angina pectoris; F12.90 Cannabis use, unspecified, uncomplicated; I25.5 Ischemic cardiomyopathy; I25.2 Old myocardial infarction; Z95.5 Presence of coronary angioplasty implant and graft; Z95.810 Presence of automatic (implantable) cardiac defibrillator; Z79.82 Long term (current) use of aspirin; Z79.84 Long term (current) use of oral hypoglycemic drugs; Z79.899 Other long term (current) drug therapy
CPT/HCPCS: 82962; A4216

== ENCOUNTER 2022-02-28 01:50 | Outpatient (REF) | payer MEDICAID, SELFPAY ==
[2020-04-10 09:35] VITALS: BMI 25.9
[2022-02-28 01:51] VITALS: BP 129/88; PULSE 79; RESP 18; TEMP 36.1; O2SAT 97; BMI 27.3
--- NOTE | 2022-02-28 02:07 | EX.ED.DYSGE1 ---
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 Patient states that he was able to tell them that he felt his sugar was low and when the penitentiary checked that it was 43. They attempted to give the patient oral glucose but he spit it out. Patient did receive his insulin today 45 units of Humalog. Patient also takes metformin which she has had today. Patient denies recent illness. He denies chest pain or abdominal pain. Patient otherwise really does not have much in the way of complaints. [facility] Medical History Anxiety and depression Atherosclerosis of coronary artery of [place] heart without angina pectoris Bipolar I disorder with depression Chronic constipation Chronic systolic CHF (congestive heart failure) Depression Diabetes Elevated liver enzymes Essential hypertension Flu vaccine need Hepatitis B History of non-ST elevation myocardial infarction (NSTEMI) (07/2018) Hyperlipidemia ICD (implantable cardioverter-defibrillator) discharge Ischemic cardiomyopathy Nicotine dependence Peripheral neuropathy Polyneuropathy due to type 2 diabetes mellitus Polysubstance abuse Severe left ventricular systolic dysfunction Type 2 diabetes mellitus Home Medications blood pressure monitor #1 ea 05/31/19 [Rx Last Taken Unknown] Handicap Placard #1 ea 07/23/20 [Rx Last Taken Unknown] nebulizer accessories #1 ea 04/22/21 [Rx Last Taken Unknown] nebulizers (Aeroneb Go Nebulizer) #1 ea 04/22/21 [Rx Last Taken Unknown] blood sugar diagnostic #100 ea 07/30/21 [Rx Last Taken Unknown] lancets 28 gauge (FreeStyle Lancets) #200 ea 07/30/21 [Rx Last Taken Unknown] pen needle, diabetic 31 gauge x 5/16 (1st Tier Unifine Pentips) #100 ea 07/30/21 [Rx Last Taken Unknown] aspirin 81 mg tablet,delayed release 81 mg PO ONCE stroke prevention 01/30/22 [History Last Taken Unknown] metformin 1,000 mg 24 hr tablet,extended release 1,000 mg PO BID blood sugar 01/30/22 [History Last Taken Unknown] albuterol sulfate 90 mcg/actuation aerosol inhaler 1 puff inhalation Q6H PRN PRN Sob &/Or Wheezing #8.5 grams 01/31/22 [Rx Last Taken Unknown] budesonide-formoterol HFA 160 mcg-4.5 mcg/actuation aerosol inhaler (Symbicort) 2 puff inhalation Q12H lungs #10.2 grams 01/31/22 [Rx Last Taken Unknown] carvedilol 12.5 mg tablet 12.5 mg PO BID heart/bp #60 tabs 01/31/22 [Rx Last Taken Unknown] clopidogrel 75 mg tablet 75 mg PO DAILY prevent stroke #1 TAB 01/31/22 [Rx Last Taken Unknown] furosemide 40 mg tablet (Lasix) 40 mg PO DAILY #30 tabs 01/31/22 [Rx Last Taken Unknown] insulin lispro protamine-lispro 100 unit/mL (50-50) subcutaneous pen (Humalog Mix 50-50 KwikPen) 45 unit (0.45 mL) subcut BID blood sugar #15 mL 01/31/22 [Rx Last Taken Unknown] losartan 25 mg tablet 25 mg PO DAILY blood pressure #30 tabs 01/31/22 [Rx Last Taken Unknown] magnesium oxide 400 mg (241.3 mg magnesium) tablet 400 mg PO BID supplement #60 tabs 01/31/22 [Rx Last Taken Unknown] pantoprazole 40 mg tablet,delayed release 40 mg PO DAILY PPI #30 tabs 01/31/22 [Rx Last Taken Unknown] potassium chloride 20 mEq tablet,extended release 20 meq PO DAILY replacement ##30 01/31/22 [Rx Last Taken Unknown] spironolactone 25 mg tablet 25 mg PO DAILY water pill #30 tabs 01/31/22 [Rx Last Taken Unknown] Allergy/AdvReac Type Severity Reaction Status Date / Time No Known Allergies Allergy Verified 01/30/22 00:00 Family History Mother CAD (coronary artery disease) Diabetes Hypertension Myocardial infarction Asthma Father CAD (coronary artery disease) Diabetes Hypertension Myocardial infarction Brother Hypertension Asthma Grandfather Asthma COPD (chronic obstructive pulmonary disease) Surgical History History of appendectomy History of coronary artery stent placement (04/30/18) History of left heart catheterization (12/05/18) Presence of automatic implantable cardioverter-defibrillator (06/28/17) Social History Smoking Status: Current every day smoker tobacco type: cigarettes Tobacco: How many years used: 10 Smokeless tobacco user: other Electronic Cigarette Use: not used second hand exposure: Yes alcohol intake: never substance use type: marijuana caffeine: Yes Type: carbonated beverages and tea ROS ROS ED ROS Narrative Hypoglycemia Review of Systems ROS Unobtainable: other Constitutional Constitutional ED: Reports lethargy; Denies chills, fever(s), sweats or weight loss Eyes Eyes: Denies blurry vision, change in vision or diplopia ENT ENT ED: Denies rhinorrhea or sore throat Cardiovascular Cardiovascular: Denies chest pain, orthopnea or racing heartbeat Respiratory/Chest Respiratory/Chest: Denies cough, dyspnea, dyspnea on exertion, orthopnea or sputum Gastrointestinal Gastrointestinal: Denies abdominal pain, diarrhea, nausea or vomiting Genitourinary Genitourinary ED: Denies dysuria, hematuria or urinary frequency Musculoskeletal Musculoskeletal: Denies arthralgias, back pain, myalgias or neck pain Integumentary Denies abscess, Abrasions or rash Neurologic Neurologic: Denies headache(s) or weakness Psychiatric Psychiatric: Denies anxiety, depression or suicidal thoughts Endocrine Endocrinology: Denies polydipsia, polyphagia or polyuria Hematologic/Lymphatic Hematologic/Lymphatic: Denies easy bleeding, easy bruising or lymphadenopathy Allergic/Immunologic Allergic/Immunologic ED: Denies mouth swelling, tongue swelling or urticaria EXAM Physical Exam Const Vital Signs: 02/28/22 01:51 Temperature 96.9 F L Temperature Source Temporal Pulse Rate 79 Respiratory Rate 18 Blood Pressure 129/88 H Blood Pressure Mean 101 Pulse Ox 97 Oxygen Delivery Method Room Air Positive well nourished and well developed General Appearance ED: well developed and NAD HEENT Reports TM's clear and moist mucous membranes normocephalic and atraumatic; Negative for trauma or tenderness Tympanic Membrane ED: Yes TM's clear Eyes PERRL and EOMs intact bilaterally General Eye ED: Negative for pale conjunctiva or scleral icterus Neck no lymphadenopathy, supple and no JVD General: Negative for tenderness Chest Wall inspection of chest normal and palpation of chest normal Chest: Negative for tenderness Resp normal respiratory effort and clear to auscultation bilaterally Effort and Inspection: Negative for respiratory distress or pain with movement Auscultation: Negative for rhonchi, wheezes or diminished lung sounds Cardio regular rate, regular rhythm, S1 normal heart sound, S2 normal heart sound and no murmurs Peripheral Pulses: pulses 2+ throughout GI normal to inspection, nondistended, normoactive bowel sounds, soft to palpation, non-tender, non-distended and no masses Back/Spine no CVA tenderness and no thoracic nor lumbar tenderness Extremity normal to inspection General Extremety ED: Negative for edema General Extremity: Negative for edema Neuro oriented x3, CN's II-XII intact bilaterally, no sensory deficits noted and gait normal Sensorium / Orientation: awake, alert, oriented to person, oriented to place and oriented to time Motor Exam: strength 5/5 throughout and strength abnormal Psych mental status grossly normal Skin no rashes or lesions noted and no wounds MDM MDM MDM Narrative Medical decision making narrative: On arrival prior to my evaluation of patient with nursing staff to check her blood sugar and it was 33. Before I could see the patient he was already given orange juice with sugar packets and it and cookies to eat as he was mentating normally. Patient will be observed in the department for monitoring of his glucose. Repeat blood sugar after half an hour was over 100. I observed him for another hour after he was able to eat a meal tray and blood sugar over 200 now. Patient asymptomatic. [facility] Lab Data Labs: Laboratory Results - last 24 hr 02/28/22 02:37 POC Glucose 143 H Discharge Plan Triage Chief Complaint: Hypoglycemia ED Provider: Sana Hahn Dx/Rx/DC Orders Clinical Impression: Hypoglycemia Instructions: ED Diabetic Insulin Reaction Prescriptions: No Action (DME) Handicap [place] See Rx Instructions .Route .MEDSUPPLY Qty: 1 0RF Rx Instructions: Good from 07/23/2020-07/23/2025 aspirin 81 mg tablet,delayed release (DR/EC) 81 mg PO ONCE metformin 1,000 mg tablet,ER [place].retention 24 hr 1,000 mg PO BID furosemide [Lasix] 40 mg tablet 40 mg PO DAILY Qty: 30 0RF carvedilol 12.5 mg tablet 12.5 mg PO BID Qty: 60 0RF Rx Instructions: must administer with a meal/food clopidogrel 75 mg tablet 75 mg PO DAILY Qty: 1 0RF spironolactone 25 mg tablet 25 mg PO DAILY Qty: 30 0RF magnesium oxide 400 mg (241.3 mg magnesium) tablet 400 mg PO BID Qty: 60 0RF pantoprazole 40 mg tablet,delayed release (DR/EC) 40 mg PO DAILY Qty: 30 0RF losartan 25 mg tablet 25 mg PO DAILY Qty: 30 0RF albuterol sulfate 90 mcg/actuation HFA aerosol inhaler 1 puff INHALATION Q6H PRN PRN (Reason: Sob &/Or Wheezing) Qty: 8.5 1RF Humalog Mix 50-50 KwikPen 100 unit/mL (50-50) insulin pen 45 unit SC BID Qty: 15 0RF budesonide-formoterol [Symbicort] 160-4.5 mcg/actuation HFA aerosol inhaler 2 puff INHALATION Q12H Qty: 10.2 0RF potassium chloride 20 mEq tablet extended release 20 meq PO DAILY Qty: 30 0RF (DME) blood pressure monitor Kit See Rx Instructions .ROUTE .MEDSUPPLY Qty: 1 0RF Rx Instructions: Check blood pressure daily for hypertension I10 (DME) nebulizer accessories Misc See Rx Instructions .ROUTE .MEDSUPPLY Qty: 1 0RF Rx Instructions: As directed (DME) Aeroneb Go Nebulizer Misc See Rx Instructions .ROUTE .MEDSUPPLY Qty: 1 0RF Rx Instructions: As directed (DME) blood sugar diagnostic Strip See Rx Instructions .ROUTE .MEDSUPPLY Qty: 100 5RF Rx Instructions: One Touch - As directed 3 x DAILY for Diabetes (E11.9) (DME) lancets [FreeStyle Lancets] 28 gauge misc See Dose Instructions .Route .MEDSUPPLY Qty: 200 3RF Dose Instruction: Check blood glucose daily for type 2 DM Rx Instructions: Check blood glucose daily for type 2 DM 3x daily (DME) pen needle, diabetic [1st Tier Unifine Pentips] 31 gauge x 5/16 needle See Rx Instructions .ROUTE .MEDSUPPLY Qty: 100 3RF Rx Instructions: As directed 4x DAILY BD BRAND Primary Care Provider: Tammie Nieves Referrals: Tammie Nieves MD [Primary Care Provider] - As Needed Disposition Disposition: Home, Self Care
[2022-02-28 03:01] LABS: Bedside Glucose 143 mg/dL (74-106)
[2022-02-28 04:01] LABS: Bedside Glucose 224 mg/dL (74-106)
[2022-02-28 07:40] LABS: Bedside Glucose 33 mg/dL (74-106)
== END 2022-02-28 03:49 | disposition home or self-care (01) ==
LOC: ED 01:50
PROVIDERS: PCP Internal Medicine; Visit Provider Emergency Medicine
DX: E11.649 Type 2 diabetes mellitus with hypoglycemia without coma (principal); I50.22 Chronic systolic (congestive) heart failure; I11.0 Hypertensive heart disease with heart failure; E11.42 Type 2 diabetes mellitus with diabetic polyneuropathy; E78.5 Hyperlipidemia, unspecified; F17.210 Nicotine dependence, cigarettes, uncomplicated; I25.10 Atherosclerotic heart disease of native coronary artery without angina pectoris
CPT/HCPCS: 82962